=== PATIENT | male | born 1950 | race African-American/Black ===

== ENCOUNTER 2016-11-19 17:26 | Inpatient (IN) | payer OTHER, MEDICARE ==
[2016-11-19] VITALS (9 sets, daily range): BP systolic 114–124; BP diastolic 49–86; PULSE 77–107; RESP 20–22; TEMP 97.2–98.1; O2SAT 95–100
[~2016-11-19] VITALS: Ht 175.3 cm; Wt 104.2 kg
[~2016-11-19 17:26] MED LIST: ALBU0.086 NEB; ALBU8I INH; ALLE60TA PO; AZIT250T43 PO; IPRA0.02 NEB; LORA10TA PO; LOVA10TA PO; PRED20 PO
[2016-11-19] MEDS ORDERED: NITROGLYCERIN-DEXTROSE INJ 250 ML IV SCH (17:30)
[2016-11-19] MEDS ORDERED: HEPARIN SODIUM - IV 10,000 UNITS/10 ML VIAL IV STA (17:30)
[2016-11-19] MEDS ORDERED: NITROGLYCERIN 0.4 MG SL 25 TABS/BTL SL STA (17:30)
[2016-11-19] MEDS ORDERED: SODIUM CHLOR 0.9% 1000 ML INJ 1,000 ML IV ONE (17:30)
[2016-11-19] MEDS ORDERED: ASPIRIN 81 MG CHEW TAB PO STA (17:30)
--- NOTE | 2016-11-19 17:37 | PD ---
HPI Chief Complaint: STEMI alert Time Seen by Provider: 17:30 Travel History International Travel<30 days: No Contact w/Intl Traveler<30days: No Traveled to known affect area: No History of Present Illness HPI 65-year-old male with history of high cholesterol, asthma, previous history of smoking but quit 6 months ago, presents to the ER today brought in by EMS as a STEMI alert. Patient apparently has been having substernal chest discomfort, nausea, and went to an urgent care clinic. At an urgent care clinic they did an EKG and were concerned of an ST elevation CT. The consult patient's preventive maintenance engineer, Dr. Rey, who sent the patient in and is ready to see him in the Hydrotherapist. On arrival, patient's chest pain is a 3 out of 10. Modifying Factors: None Associated Signs & Symptoms: Chest pain, STEMI alert Risk Factors: High cholesterol, previous smoking PFSH Past Medical History Asthma: Yes Respiratory: Yes Social History Alcohol Use: No Tobacco Use: No Substance Use: No Allergies-Medications (Allergen,Severity, Reaction): Coded Allergies: No Known Allergies (Unverified , 05/18/16) Reported Meds & Prescriptions Reported Meds & Active Scripts Active Atrovent Ud 0.02% (0.5 Mg/2.5 Ml) (Ipratropium [place]) 0.5 Mg/2.5 Ml Nebu 0.5 Mg NEB Q4HR NEB Proventil Ud 0.083% (2.5 Mg/3 Ml) (Albuterol Sulfate) 2.5 Mg/3 Ml Inha 2.5 Mg NEB Q4HR NEB Azithromycin 250 Mg Tab 250 Mg PO DAILY 4 Days Deltasone 20 Mg Tab (Prednisone) 20 Mg Tab 60 Mg PO DAILY 4 Days Reported Ventolin Hfa (Albuterol Sulfate) 8 Gm Aero 1 Puff INH Q4 * SHAKE WELL BEFORE USE * Lovastatin 10 Mg Tab 10 Mg PO DAILY Vicenta Allergy (Fexofenadine Hcl) 60 Mg Tab 60 Mg PO DAILY Claritin 10 Mg Tab (Loratadine) 10 Mg Tab 10 Mg PO DAILY Review of Systems Except as stated in HPI: all other systems reviewed are Neg Physical Exam Narrative GENERAL: Well-nourished, well-developed elderly -Spanish male patient in mild distress. Awake and oriented 3. SKIN: Warm and dry. HEAD: Normocephalic. EYES: No scleral icterus. No injection or drainage. NECK: Supple, trachea midline. CARDIOVASCULAR: Regular rate and rhythm without murmurs, gallops, or rubs. Pulses are present and equal bilaterally. RESPIRATORY: Breath sounds equal bilaterally. No accessory muscle use. GASTROINTESTINAL: Abdomen soft, non-tender, nondistended. MUSCULOSKELETAL: No cyanosis, or edema. BACK: Nontender without obvious deformity. No CVA tenderness. Data Data Orders Troponin I (11/19/16 17:30) Ckmb (Isoenzyme) Profile (11/19/16 17:30) Complete Blood Count With Diff (11/19/16 17:30) I-Stat Profile (11/19/16 17:30) I-Stat Creatinine (11/19/16:30) Calcium (11/19/16:30) Magnesium (Mg) (11/19/16 17:30) Prothrombin Time / Inr (Pt) (11/19/16:30) Act Partial Throm Time (Ptt) (11/19/16:30) B-Type Natriuretic Peptide (11/19/16 17:30) Chest, Single Ap (11/19/16 17:30) Electrocardiogram (11/19/16 17:30) Oxygen Administration (11/19/16 17:30) Iv Access Insert/Monitor (11/19/16:30) Oximetry (11/19/16 17:30) Sodium Chlor 0.9% 1000 Ml Inj (Ns 1000 M (11/19/16 17:30) Sodium Chloride 0.9% Flush (Ns Flush) (11/19/16 17:30) Aspirin Chew (Aspirin Chew) (11/19/16 17:30) Nitroglycerin Sl (Nitrostat Sl) (11/19/16 17:30) Nitroglycerin-Dextrose Inj (Nitroglyceri (11/19/16 17:30) Heparin Inj (Heparin Inj) (11/19/16 17:30) Admit Order (Ed Use Only) (11/19/16 17:31) MDM Medical Decision Making Medical Screen Exam Complete: Yes Emergency Medical Condition: Yes Medical Record Reviewed: Yes Interpretation(s) EKG normal sinus rhythm with shows new onset left bundle branch block, ST elevations in the anterolateral leads and depressions in the inferior lead. Differential Diagnosis STEMI alert Narrative Course Patient was seen in the ER by Dr. rey who takes them up to catheterization, agrees to admit the patient for further treatment. Diagnosis Primary Impression: STEMI (ST elevation myocardial infarction) Admitting Information Admitting Physician Requests: Admit Kayla Oconnor MD Nov 19, 2016 17:37
[2016-11-19] MEDS ORDERED: HEPARIN SODIUM - IV 10,000 UNITS/10 ML VIAL ONE (17:47)
[2016-11-19] MEDS ORDERED: MIDAZOLAM HCL 2 MG/2 ML VIAL ONE ×2 (17:47→20:18)
[2016-11-19] MEDS ORDERED: BIVALIRUDIN 250 MG VIAL ONE (17:50)
[2016-11-19 17:58] LABS: I-STAT POTASSIUM 4.5 MMOL/L (3.5-4.9)
[2016-11-19 17:59] LABS: AUTOMATED NEUTROPHIL # 5.7 TH/MM3 (1.8-7.7); BASOPHIL # 0.1 TH/MM3 (0-0.2); BASOPHIL % 0.8 % (0.0-2.0); EOSINOPHIL % 0.3 % (0.0-4.0); HEMATOCRIT 42.6 % (39.0-51.0); HEMO FLAGS DIFF FINAL; LYMPH % 13.6 % (9.0-44.0); MEAN CELL VOLUME 91.3 FL (80.0-100.0); MEAN CORPUSCULAR HGB CONC 33.9 % (32.0-36.0); MONO % 5.7 % (0.0-8.0); NEUT % 79.6 % (16.0-70.0); PLATELET COUNT 278 TH/MM3 (150-450); RED BLOOD COUNT 4.67 MIL/MM3 (4.50-5.90); RED CELL DISTRIBUTION WIDTH 14.1 % (11.6-17.2); WHITE BLOOD COUNT 7.1 TH/MM3 (4.0-11.0)
[2016-11-19 18:03] LABS: APTT (PATIENT) 23.1 SEC (24.3-30.1); PROTHROMBIN TIME - PATIENT 10.8 SEC (9.8-11.6)
[2016-11-19 18:17] LABS: MAGNESIUM 2.1 MG/DL (1.5-2.5)
[2016-11-19] MEDS ORDERED: HEPARIN-D5W INJ 250 ML ONE (18:25)
[2016-11-19] MEDS ORDERED: PHENYLEPH/NS 1000 MCG/10 ML SYR ONE ×3 (18:29→20:44)
[2016-11-19] MEDS ORDERED: HEPARIN SODIUM - SQ 10,000 UNITS/ML VIAL ONE ×2 (18:51→18:56)
[2016-11-19] MEDS ORDERED: VANCOMYCIN HCL 1000 MG VIAL ONE ×2 (18:52→18:56)
[2016-11-19 18:54] LABS: CKMB 261.3 NG/ML (0.5-3.6)
[2016-11-19] MEDS ORDERED: ceFAZolin 2 GM PREMIX 50 ML ONE (18:56)
[2016-11-19] MEDS ORDERED: methylPREDNISolone SOD SUCC 125 MG/2 ML VIAL ONE (18:56)
[2016-11-19] MEDS ORDERED: IOHEXOL 350 MG/ML 100 ML BTL (for Cath Lab) OTHER ONE (19:00)
[2016-11-19] MEDS ORDERED: STERILE WATER FOR INJECTION 10 ML VIAL ONE (19:34)
[2016-11-19] MEDS ORDERED: CANGRELOR TETRASODIUM 50,000 MCG VIAL IV ONE (19:34)
[2016-11-19] MEDS ORDERED: PHENYLEPHRINE HCL 10 MG/ML VIAL ONE ×3 (19:37→21:09)
[2016-11-19] MEDS ORDERED: FUROSEMIDE 40 MG/4 ML VIAL ONE ×2 (19:49→20:19)
[2016-11-19] MEDS ORDERED: CANGRELOR INJ 50,000 MCG in SODIUM CHLOR 0.9% 250 ML INJ 250 ML IV ONE ×2 (20:15→23:45)
[2016-11-19] MEDS ORDERED: SODIUM CHLOR 0.9% 250 ML INJ 250 ML IV PRN (20:15)
[2016-11-19] MEDS ORDERED: MISC INFORMATION XX ONE (20:15)
[2016-11-19] MEDS ORDERED: ONDANSETRON HCL 4 MG/2 ML VIAL IV PRN (20:15)
[2016-11-19] MEDS ORDERED: MORPHINE SULFATE 4 MG/ML INJ IV PUSH PRN (20:15)
[2016-11-19] MEDS ORDERED: ATROPINE SULFATE 1 MG/ML VIAL IV PRN (20:15)
[2016-11-19] MEDS ORDERED: METOCLOPRAMIDE HCL 10 MG/2 ML VIAL IV PRN (20:15)
[2016-11-19] MEDS ORDERED: TERBUTALINE INJ 1 MG/ML AMP SQ PRN (20:15)
[2016-11-19] MEDS ORDERED: MIDAZOLAM HCL 5 MG/ML VIAL (1 ML) ONE (20:59)
[2016-11-19] MEDS: SODIUM CHLOR 0.9% 1000 ML INJ 1,000 ML IV SCH (21:00)
[2016-11-19] MEDS: ATORVASTATIN 40 MG TAB PO SCH (21:00)
[2016-11-19] MEDS ORDERED: PROPOFOL 1000 MG/100 ML INJ 100 ML ONE ×2 (21:01→23:25)
--- NOTE | 2016-11-19 21:33 | MB ---
cc: TAYO ANDERSON MD DATE OF CONSULTATION 11/19/2016 INDICATIONS STEMI. HISTORY OF PRESENT ILLNESS This 65-year-old gentleman has history of hyperlipidemia and asthma but no prior history of coronary disease. This morning he awoke, had some intermittent chest pain symptoms, began to become progressively worse over the course of the early afternoon. He came over to [facility]. There he had an EKG which showed new left bundle with ST-elevation anterolaterally. He was having nausea, vomiting, shortness of breath and diaphoresis. EMS was initiated. I was called, met the patient in the emergency department STEMI Alert protocol was initiated. PAST MEDICAL HISTORY Asthma. Hyperlipidemia. SOCIAL HISTORY Denies any alcohol, tobacco or drug use. ALLERGIES No known drug allergies. MEDICATIONS AT HOME 1. Atrovent. 2. Proventil. 3. Lovastatin. 4. Vicenta. REVIEW OF SYSTEMS A 12-point review of systems was performed, negative unless otherwise noted in the History Of Present Illness. PHYSICAL EXAMINATION VITAL SIGNS: Temperature 98, pulse is 100, blood pressure 124/82 mmHg. IN GENERAL: Alert, moderate distress. HEENT: Exam shows pupils reactive to light and accommodation. Extraocular movements are intact. NECK: No elevation of jugular venous distention, no thyromegaly, no lymphadenopathy, no carotid bruits. LUNGS: Clear to auscultation bilaterally. CARDIOVASCULAR EXAM: Regular rate and rhythm, without murmurs, rubs or gallops. ABDOMEN EXAM: Nontender, nondistended. Good bowel sounds. No hepatosplenomegaly. EXTREMITIES: No clubbing, cyanosis or edema. Good peripheral pulses. NEUROLOGIC: Cranial nerves intact. LABS Pending. ASSESSMENT 1. ST-elevation WI 2. Hyperlipidemia. PLAN Given the patient's ongoing symptoms in addition to EKG changes, ST-elevation WI protocol was initiated. The risks, benefits and alternatives were discussed with the patient and family. We will transfer to the Cardiac Catheterization Lab emergently. MD NATHANIEL Dejesus/PAULETTE /8:15 PM /9:26 PM
[2016-11-19 22:19] LABS: BLOOD GAS BASE EXCESS -3.4 mmol/L (-2-2); BLOOD GAS CARBOXYHEMOGLOBIN 0.8 % (0-4); BLOOD GAS HCO3 23 mmol/L (22-26); BLOOD GAS METHEMOGLOBIN 1.1 % (0-2); BLOOD GAS O2 HGB SATURATION 98 % (90-100); BLOOD GAS OXYGEN CONTENT 21.8 Vol % (12.0-20.0); BLOOD GAS PCO2 52 mmHg (38-42); BLOOD GAS PO2 412 mmHg (61-120); BLOOD GAS TOTAL HGB 15.1 G/DL (12.0-16.0); CRITICAL VALUE YES; DRAW SITE ALINE; FIO2 100 %; OXYGEN DEVICE VENTILATOR; STAT NO; TEMP CORR TO 98.6; VENT SETTINGS AC/18/550/PEEP5
--- NOTE | 2016-11-19 22:22 | PD.CONS ---
[facility] Service Critical Care Medicine Consult Requested By Primary Care Physician Jez Charles, PhD, MD History of Present Illness 65-year-old gentleman has history of hyperlipidemia and asthma, he awoke, had some intermittent chest pain symptoms, began to become progressively worse over the course of the early afternoon. He came over to [facility], where an EKG showed new left bundle with ST-elevation anterolaterally. He was taken emergently to cardiac catheterization lab where his LAD was stented. At the end of the procedure patients suffered near cardiac arrest requiring intubation intra-aortic balloon pump placement and IV vasopressors. Critical care medicine was consulted to manage ventilatory dependent respiratory failure and assist with medical management. Review of Systems ROS Unable to obtain patient is sedated and intubated Past Family Social History Allergies: Coded Allergies: No Known Allergies (Unverified , 05/18/16) Past Medical History Asthma. Hyperlipidemia. Past Surgical History None Reported Medications Reported Meds & Active Scripts Active Atrovent Ud 0.02% (0.5 Mg/2.5 Ml) (Ipratropium [place]) 0.5 Mg/2.5 Ml Nebu 0.5 Mg NEB Q4HR NEB Proventil Ud 0.083% (2.5 Mg/3 Ml) (Albuterol Sulfate) 2.5 Mg/3 Ml Inha 2.5 Mg NEB Q4HR NEB Azithromycin 250 Mg Tab 250 Mg PO DAILY 4 Days Deltasone 20 Mg Tab (Prednisone) 20 Mg Tab 60 Mg PO DAILY 4 Days Reported Ventolin Hfa (Albuterol Sulfate) 8 Gm Aero 1 Puff INH Q4 * SHAKE WELL BEFORE USE * Lovastatin 10 Mg Tab 10 Mg PO DAILY Vicenta Allergy (Fexofenadine Hcl) 60 Mg Tab 60 Mg PO DAILY Claritin 10 Mg Tab (Loratadine) 10 Mg Tab 10 Mg PO DAILY Active Ordered Medications Current Medications Medications (Trade) Dose Ordered Sig/Syed Route PRN Reason Start Time Stop Time Status Last Admin Dose Admin IV Flush 2 ml 2 ml UNSCH PRN IVF FLUSH AFTER USING IV ACCESS 11/19/16 17:30 Nitroglycerin/ Dextrose 250 ml @ 0 mls/hr TITRATE IV 11/19/16 17:30 Sodium Chloride (NS 1000 ml Inj) 1,000 ml @ 100 mls/hr Q10H IV 11/19/16 20:03 11/20/16 08:02 11/19/16 21:00 Morphine Sulfate (Morphine Inj) 2 mg Q30M PRN IV PUSH BREAKTHROUGH PAIN 11/19/16 20:15 Aspirin (Aspirin Chew) 81 mg DAILY PO 11/20/16 09:00 Atropine Sulfate 0.5 mg 0.5 mg UNSCH PRN IV VAGAL REPONSE 11/19/16 20:15 Sodium Chloride (NS 250 ml Inj) 250 ml @ 500 mls/hr ONCE PRN IV VAGAL REPONSE 11/19/16 20:15 11/20/16 20:14 Metoclopramide HCl (Reglan Inj) 10 mg Q4H PRN IV NAUSEA 11/19/16 20:15 Ondansetron HCl 4 mg 4 mg Q4H PRN IV NAUSEA 11/19/16 20:15 Heparin Sodium/ Dextrose (Heparin-D5W Inj) 250 ml @ 0 mls/hr TITRATE IV 11/19/16 20:15 Ferrous Sulfate (Ferrous Sulfate) 325 mg DAILY PO 11/20/16 09:00 Atorvastatin Calcium 40 mg 40 mg HS PO 11/19/16 21:00 Phenylephrine HCl/ Dextrose (Neosynephrine Inj/D5W 500 ml Inj) 500 ml @ 0 mls/hr TITRATE IV 11/19/16 21:15 Terbutaline Sulfate (Brethine Inj) 1 mg UNSCH PRN SQ For Extravasation 11/19/16 20:15 Furosemide (Lasix Inj) 40 mg BID@09,18 IV PUSH 11/20/16 09:00 Family History Noncontributory Social History Denies any alcohol, tobacco or drug use. Physical Exam Vital Signs Vital Signs Date Time Temp Pulse Resp B/P Pulse Ox O2 Delivery O2 Flow Rate FiO2 11/19/16 20:50 99 100 11/19/16 20:30 99 100 11/19/16 18:07 99 Nasal Cannula 2.00 11/19/16 18:07 99 2.00 11/19/16 17:50 101 22 97 Nasal Cannula 3 11/19/16 17:50 97 Nasal Cannula 3 11/19/16 17:50 97 Nasal Cannula 3 11/19/16 17:30 98.1 84 22 124/86 97 Nasal Cannula 3 11/19/16 17:28 98.1 84 22 124/82 98 Physical Exam GENERAL: Well-nourished, well-developed patient. SKIN: Warm and dry. HEAD: Normocephalic. EYES: No scleral icterus. No injection or drainage. NECK: Supple, trachea midline. No JVD or lymphadenopathy. CARDIOVASCULAR: Regular rate and rhythm without murmurs, gallops, or rubs. RESPIRATORY: Breath sounds equal bilaterally. No accessory muscle use. GASTROINTESTINAL: Abdomen soft, non-tender, nondistended. MUSCULOSKELETAL: No cyanosis, or edema. BACK: Nontender without obvious deformity. No CVA tenderness. Laboratory Laboratory Tests Test 11/19/16 11/19/16 17:36 22:00 White Blood Count 7.1 Red Blood Count 4.67 Hemoglobin 14.5 Bedside Hemoglobin 15.3 Hematocrit 42.6 Bedside Hematocrit 45.0 Mean Corpuscular Volume 91.3 Mean Corpuscular Hemoglobin 31.0 Mean Corpuscular Hemoglobin 33.9 Concent Red Cell Distribution Width 14.1 Platelet Count 278 Mean Platelet Volume 8.2 Neutrophils (%) (Auto) 79.6 Lymphocytes (%) (Auto) 13.6 Monocytes (%) (Auto) 5.7 Eosinophils (%) (Auto) 0.3 Basophils (%) (Auto) 0.8 Neutrophils # (Auto) 5.7 Lymphocytes # (Auto) 1.0 Monocytes # (Auto) 0.4 Eosinophils # (Auto) 0.0 Basophils # (Auto) 0.1 CBC Comment DIFF FINAL Differential Comment Prothrombin Time 10.8 Prothromb Time International 1.0 Ratio Activated Partial 23.1 Thromboplast Time Bedside Sodium 136 Bedside Potassium 4.5 Bedside Chloride 97 Bedside Blood Urea Nitrogen 14 Bedside Creatinine 1.0 Bedside Glucose 139 Calcium Level 8.2 Magnesium Level 2.1 Total Creatine Kinase 2393 Creatine Kinase MB 261.3 Creatine Kinase MB % 10.9 Troponin I 17.00 B-Type Natriuretic Peptide 60 Blood Gas Puncture Site YUMIKO Blood Gas Patient Temperature 98.6 Blood Gas HCO3 23 Blood Gas Base Excess -3.4 Blood Gas Oxygen Saturation 98 Arterial Blood pH 7.26 Arterial Blood Partial 52 Pressure CO2 Arterial Blood Partial 412 Pressure O2 Arterial Blood Oxygen Content 21.8 Arterial Blood 0.8 Carboxyhemoglobin Arterial Blood Methemoglobin 1.1 Blood Gas Hemoglobin 15.1 Oxygen Delivery Device VENTILATOR Blood Gas Ventilator Setting AC/18/550/PEEP5 Blood Gas Inspired Oxygen 100 Result Diagram: 11/19/16 0570 Assessment and Plan Problem List: (1) STEMI (ST elevation myocardial infarction) ICD Code: I21.3 Status: Acute (2) Acute respiratory failure ICD Code: J96.00 Status: Acute (3) Cardiogenic shock ICD Code: R57.0 Status: Acute (4) Dyslipidemia ICD Code: E78.5 Status: Acute (5) Obesity hypoventilation syndrome ICD Code: E66.2 Status: Acute Assessment and Plan Acute respiratory failure - Intubated in cardiac - Continue mechanical ventilation - SBT trials in the morning if hemodynamically improved - Continue DuoNeb Asthma - No exacerbation - DuoNeb Obesity hypoventilation syndrome - Not an issue while intubated Cardiogenic shock - Due to STEMI - Management per house rn - Aortic balloon pump STEMI - Status post LAD intervention - C ABG on Wednesday if hemodynamically stable Dyslipidemia - Statin DVT GI prophylaxis - Heparin drip Pepcid Critical Care: The total critical care time was 35 minutes. Time to perform other separately billable procedures was not included in the critical care time. Delvin Hernandez MD Nov 19, 2016 22:22
--- NOTE | 2016-11-19 22:25 | MA ---
cc: RADHA CULPTAYO DATE 11/19/2016 INDICATIONS STEMI. PROCEDURE PERFORMED 1. Fluoroscopy with interpretation. 2. Coronary angiography. 3. Temporary transvenous pacemaker placement. 4. Intraaortic balloon pump placement. 5. Percutaneous intervention with bare metal stent to the proximal and mid-left anterior descending coronary artery. 6. Relay thrombectomy of the left anterior descending coronary artery. 7. CPR. METHOD The risks, benefits and alternatives were discussed with the patient. The patient understood and signed consent for the procedure. The patient was brought to the catheterization lab and placed on the catheterization table. Right wrist and right groin were prepped and draped in a sterile fashion. The right wrist was anesthetized with 2% lidocaine. The right radial artery was cannulated and a 6-Kyrgyz, 7-cm sheath was placed without difficulty. CORONARY ANGIOGRAPHY The left coronary circulation was selectively engaged with a 6-Kyrgyz JL-3.5 catheter. Right coronary circulation was selectively engaged with a 6-Kyrgyz JR-5 catheter. CORONARY ANATOMY 1. Left main coronary is angiographically normal. 2. Left anterior descending coronary artery disease is 100% occluded proximally. A diagonal branch which is also occluded proximally. 3. Left circumflex gives rise to a ramus intermedius branch with a 99% proximal stenosis. The circumflex in the mid-segment has a 90% stenosis. There is a first obtuse marginal branch with a 90% stenosis. 4. Right coronary artery is a dominant vessel giving rise to a posterior descending coronary artery. The mid-right coronaries has a 90% stenosis. No collaterals to the left anterior descending coronary artery. INTRAAORTIC BALLOON PUMP PLACEMENT Prior to initiation of percutaneous intervention, the patient's systolic blood pressure dropped a 40 mmHg. The patient became apneic. Code Blue was initiated. CPR was also performed. The patient received Osman-Synephrine 15 mcg bolus. The right groin was prepped and draped. A 50 cc intraaortic balloon pump was then advanced to the thoracic aorta just beyond the takeoff of the left subclavian artery and initiated at 1:1 inflation. There was appropriate augmentation of blood pressure, although still cardiogenic shock. TEMPORARY TRANSVENOUS PACEMAKER The patient also had severe bradycardia and asystolic arrest with transient CPR. Temporary transvenous pacemaker was then placed. The right vein was accessed, a 6-Kyrgyz sheath was placed. A 5-Kyrgyz balloon-tipped temporary transvenous pacemaker was then advanced to the right ventricular apex. Appropriate capture was confirmed. Backup rate of 60 beats per minute was utilized. PERCUTANEOUS INTERVENTION Immediately following CPR, we attempted revascularization of the left anterior descending coronary artery. A 0.014-inch, 180-cm Terumo Run-Through wire was then navigated down to the distal left anterior descending coronary artery. A 3.0 x 15-mm balloon was then deployed proximally. There was still no flow down the left anterior descending, likely due to severe stenosis and heavy thrombotic burden. A 4-Kyrgyz AngioJet Spiroflex catheter was then prepped. Two sequential passes of rheolytic thrombectomy was performed through the entire length of the left anterior descending coronary artery. A 2.5 x 30-mm RX balloon was then advanced to the mid-left anterior descending coronary, deployed on three sequential inflations from mid to proximal segment. Repeat angiography again still showed no significant flow down the left anterior descending coronary artery. At this point we wanted to ensure that we were in the lumen of the vessel itself. A second wire was then carefully navigated down the distal left anterior descending coronary artery. We were able to selectively engage several septal perforators off the left anterior descending coronary suggesting we were in the true lumen. The wire was then advanced around the inferoapex. A 0.014-inch, 150-cm Trailblazer wire was then advanced over a 180-cm Terumo Run-Through wire with a DOC wire attached. The Terumo wire was then removed. Selective angiography through the distal port did confirm that we were in the true lumen and you could see the contrast dye back-filling to the mid-segment left anterior descending coronary artery. At this point, due to the poor flow, STAT surgical consultation was obtained. Dr. Radha Culp was then in the control room. We reviewed the films together. It did appear that there is heavy obstruction in the proximal segment. A 0.035-inch, 135-cm Trailblazer wire was then navigated over the Terumo Run-Through wire. The catheter was then advanced over the Terumo Run-Through wire which was down in the distal left anterior descending coronary artery. Through a Bkam system, selective angiography was performed as we pulled back through the mid to proximal left anterior descending coronary artery. This way we would not lose wire position distally but we would be able to selectively see exactly where the stenosis was for appropriate stent placement. At this point, after a lengthy discussion with Dr. Culp, be felt that percutaneous intervention would be his best chance for survival given he is hypotensive and the time it would take to mobilize the surgical suite. A 3.0 x 3-mm Integrity bare metal stent was then advanced to the proximal left anterior descending coronary and deployed. A 2.75 x 14-mm Integrity bare metal stent was advanced to the mid-segment of the left anterior descending coronary artery and deployed and a 3.0 x 14-mm Integrity stent was advanced to the very proximal segment and deployed. At this point it now showed ALYSHA-2 flow down the distal left anterior descending coronary, likely due to a thrombus embolization and no some no reflow phenomenon. The patient was still hypotensive so I did not want to give him Cardizem or nitrates. He had previously been bradycardic and I did not want to give him any intraarterial adenosine. We initiated cangrelor IV. He had been on heparin up to this point because we were not sure if he is going to go for surgical intervention. The ramus intermedius branch did have plaque shifting into it and no longer had any flow but with the smaller caliber size and with an ostial stenosis did not want to risk trying to wire that. Hopefully with the heparin and cangrelor, it will recanalize. At this point we elected not to pursue any further aggressive intervention. Hopefully distally we will be able to establish improved perfusion with the antiplatelet and anticoagulant. We will get an echocardiogram. Did not want to do a left ventriculogram for contrast minimization. CONCLUSIONS 1. Salvage left anterior descending coronary artery percutaneous intervention for acute ST-elevation myocardial infarction. 2. Successful relay thrombectomy left anterior descending coronary artery. 3. Percutaneous intervention with bare well stents to left anterior descending coronary artery. 4. Successful intraaortic balloon pump placement. 5. Successful endotracheal intubation. 6. Successful temporary transvenous pacemaker placement. PLAN 1. Obviously, the patient is in critical condition. We will monitor closely. He is on a Osman-Synephrine drip to maintain blood pressure with the intraaortic balloon pump and temporary transvenous pacemaker. He is currently intubated. 1. We will give him some Lasix IV. 2. We will obtain a 2-D echocardiogram. 3. We will discuss the case further with Dr. Culp. Hopefully we can stabilize him over the course of the next few days and we can then decide if he would be a candidate for surgical revascularization. 4. We will not administer any Plavix at this point until we determine whether he will have bypass surgery and/or the timing of such. MD NATHANIEL Dejesus/PAULETTE /8:27 PM /9:54 PM
[2016-11-19 23:42] LABS: BLOOD GAS BASE EXCESS -2.3 mmol/L (-2-2); BLOOD GAS CARBOXYHEMOGLOBIN 1.2 % (0-4); BLOOD GAS HCO3 22 mmol/L (22-26); BLOOD GAS O2 HGB SATURATION 96 % (90-100); BLOOD GAS OXYGEN CONTENT 19.9 Vol % (12.0-20.0); BLOOD GAS PCO2 37 mmHg (38-42); BLOOD GAS PO2 113 mmHg (61-120); BLOOD GAS TOTAL HGB 14.6 G/DL (12.0-16.0); TEMP CORR TO 98.6
[2016-11-19 23:43] LABS: CRITICAL VALUE NO; DRAW SITE ALINE; FIO2 40 %; OXYGEN DEVICE VENTILATOR; STAT NO; VENT SETTINGS AC/22/550/PEEP5
[2016-11-20] VITALS (14 sets, daily range): BP systolic 72–124; BP diastolic 44–68; PULSE 74–100; RESP 16–22; TEMP 97.5–100.4; O2SAT 93–99
[2016-11-20] MEDS: CANGRELOR INJ 50,000 MCG in SODIUM CHLOR 0.9% 250 ML INJ 250 ML IV PRN ×9 (00:16→18:47)
[2016-11-20] MEDS: PROPOFOL 1000 MG/100 ML IV SCH ×7 (02:29→18:48)
[2016-11-20] MEDS: PHENYLEPHRINE INJ 40 MG in DEXTROSE 5% IN WATE 500 ML INJ 496 ML IV SCH ×4 (03:52→11:12)
[2016-11-20] MEDS: RESP: ALBUTEROL 2.5 MG/IPRATROPIUM 0.5 MG NEB (SCH) NEB ×6 (04:37→23:23)
[2016-11-20 04:51] LABS: AUTOMATED NEUTROPHIL # 8.4 TH/MM3 (1.8-7.7); BASOPHIL % 0.2 % (0.0-2.0); EOSINOPHIL % 0.1 % (0.0-4.0); HEMATOCRIT 39.7 % (39.0-51.0); HEMO FLAGS DIFF FINAL; LYMPH % 7.7 % (9.0-44.0); LYMPHOCYTE # 0.8 TH/MM3 (1.0-4.8); MEAN CELL VOLUME 89.4 FL (80.0-100.0); MEAN CORPUSCULAR HEMOGLOBIN 30.8 PG (27.0-34.0); MEAN CORPUSCULAR HGB CONC 34.5 % (32.0-36.0); MONO % 7.9 % (0.0-8.0); NEUT % 84.1 % (16.0-70.0); PLATELET COUNT 264 TH/MM3 (150-450); RED BLOOD COUNT 4.45 MIL/MM3 (4.50-5.90); RED CELL DISTRIBUTION WIDTH 13.6 % (11.6-17.2)
[2016-11-20 05:32] LABS: BICARBONATE 23.2 MEQ/L (21.0-32.0); HDL CHOLESTEROL 57.4 MG/DL (40.0-60.0); POTASSIUM 4.1 MEQ/L (3.5-5.1)
[2016-11-20] MEDS: SODIUM CHLOR 0.9% 1000 ML INJ 1,000 ML IV SCH (06:03)
--- NOTE | 2016-11-20 06:09 | RADRPT ---
EXAM DATE/TIME: 11/20/2016 04:51 [place] COMPARISON: No previous studies available for comparison. INDICATIONS : Shortness of breath. MEDICAL HISTORY : Asthma. SURGICAL HISTORY : None. ENCOUNTER: Initial ACUITY: 1 day PAIN SCORE: Non-responsive. LOCATION: Bilateral chest FINDINGS: Portable AP view of the chest demonstrates a normal-sized cardiac silhouette. Nasogastric tube is loo ped in the stomach and endotracheal tube tip measures approximately 4.4 cm from the ba. Lungs are underinflated and there is atelectasis at the left lung base. No pleural effusion or pneumothorax is visualized. Bones and soft tissues demonstrate no acute finding. CONCLUSION: Lungs are underinflated with atelectasis at the left lung base. Otherwise, no acute finding is identi fied. Remi Altman MD on November 20, 2016 at 6:06 Board Certified Radiologist. This report was verified electronically.
[2016-11-20 06:25] LABS: BLOOD GAS CARBOXYHEMOGLOBIN 1.3 % (0-4); BLOOD GAS HCO3 22 mmol/L (22-26); BLOOD GAS METHEMOGLOBIN 1.1 % (0-2); BLOOD GAS O2 HGB SATURATION 97 % (90-100); BLOOD GAS OXYGEN CONTENT 18.5 Vol % (12.0-20.0); BLOOD GAS PCO2 31 mmHg (38-42); BLOOD GAS PO2 143 mmHg (61-120); BLOOD GAS TOTAL HGB 13.4 G/DL (12.0-16.0); CRITICAL VALUE NO; DRAW SITE ART LINE; FIO2 40 %; OXYGEN DEVICE VENTILATOR; STAT NO; TEMP CORR TO 98.6; VENT SETTINGS AC22/550/5PEEP
[2016-11-20 07:19] LABS: CALCIUM-PROTEIN CORRECTED 7.4 MG/DL (8.5-10.1)
--- NOTE | 2016-11-20 08:26 | PD.CARD.PN ---
Subjective Subjective Remarks intubated sedated on nette gtt Objective Medications Active Medications Aspirin 81 mg 81 mg DAILY PO; Start 11/20/16 at 09:00 Atorvastatin Calcium 40 mg 40 mg HS PO; Start 11/19/16 at 21:00 Atropine Sulfate 0.5 mg 0.5 mg UNSCH PRN IV; Start 11/19/16 at 20:15 Bivalirudin 250 mg 250 mg STK-MED ONCE .ROUTE Last administered on 11/19/16 17: 50; Admin Dose 250 MG; Start 11/19/16 at 17:50; Stop 11/19/16 at 17:51; Status DC Cangrelor (Kengreal Inj) 50,000 mcg STK-MED ONCE IV Last administered on 19:34; Admin Dose 50,000 MCG; Start 11/19/16 at 19:34; Stop 11/19/16 at 19:35 ; Status DC Cangrelor 66828 mcg/Sodium Chloride 250 ml @ 0 mls/hr ONCE ONCE IV; Start at 23:45; Stop 11/19/16 at 23:46; Status DC Cangrelor/Sodium Chloride (Kengreal Inj/NS 250 ml Inj) 250 ml @ 0 mls/hr ONCE ONCE IV; Start 11/19/16 at 20:15; Stop 11/19/16 at 20:17; Status DC Cangrelor/Sodium Chloride (Kengreal Inj/NS 250 ml Inj) 250 ml @ 0 mls/hr UNSCH PRN IV Last administered on 11/20/16 06:08; Admin Dose 0 MLS/HR; Start 11/20/16 at 04:11 Cefazolin Sodium/ Dextrose (Ancef 2 Gm Premix) 50 ml @ As Directed STK-MED ONCE .ROUTE; Start 11/19/16 at 18:56; Stop 11/19/16 at 18:57; Status DC Fentanyl Citrate (fentaNYL INJ) 100 mcg STK-MED ONCE .ROUTE Last administered on 11/19/16 17:47; Admin Dose 100 MCG; Start 11/19/16 at 17:47; Stop 11/19/16 at 17:48; Status DC Ferrous Sulfate (Ferrous Sulfate) 325 mg DAILY PO; Start 11/20/16 at 09:00 Furosemide (Lasix Inj) 40 mg BID@09,18 IV PUSH; Start 11/20/16 at 09:00 Furosemide (Lasix Inj) 40 mg STK-MED ONCE .ROUTE Last administered on 11/19/16 19:49; Admin Dose 40 MG; Start 11/19/16 at 19:49; Stop 11/19/16 at 19:50; Status DC Furosemide (Lasix Inj) 40 mg STK-MED ONCE .ROUTE Last administered on 11/19/16 20:19; Admin Dose 40 MG; Start 11/19/16 at 20:19; Stop 11/19/16 at 20:20; Status DC Heparin Sodium (Porcine) (Heparin Inj) 10,000 units STK-MED ONCE .ROUTE; Start 11/19/16 at 17:47; Stop 11/19/16 at 17:48; Status DC Heparin Sodium (Porcine) (Heparin Inj) 40,000 units STK-MED ONCE .ROUTE; Start 11/19/16 at 18:51; Stop 11/19/16 at 18:52; Status DC Heparin Sodium (Porcine) (Heparin Inj) 40,000 units STK-MED ONCE .ROUTE; Start 11/19/16 at 18:56; Stop 11/19/16 at 18:57; Status DC Heparin Sodium/ Dextrose (Heparin-D5W Inj) 250 ml @ As Directed STK-MED ONCE .ROUTE Last administered on 11/19/16 18:25; Admin Dose 10 MLS/HR; Start 11/19/16 at 18:25; Stop 11/19/16 at 18:26; Status DC Heparin Sodium/ Dextrose (Heparin-D5W Inj) 250 ml @ 0 mls/hr TITRATE IV; Start 11/19/16 at 20:15 IV Flush 2 ml 2 ml UNSCH PRN IVF; Start 11/19/16 at 17:30 Methylprednisolone Sodium Succinate 125 mg 125 mg STK-MED ONCE .ROUTE; Start 11/19/16 at 18:56; Stop 11/19/16 at 18:57; Status DC Metoclopramide HCl (Reglan Inj) 10 mg Q4H PRN IV; Start 11/19/16 at 20:15 Midazolam HCl (Versed Inj) 2 mg STK-MED ONCE .ROUTE Last administered on 17:47; Admin Dose 2 MG; Start 11/19/16 at 17:47; Stop 11/19/16 at 17:48; Status DC Midazolam HCl (Versed Inj) 2 mg STK-MED ONCE .ROUTE Last administered on 20:18; Admin Dose 2 MG; Start 11/19/16 at 20:18; Stop 11/19/16 at 20:19; Status DC Midazolam HCl 5 mg 5 mg STK-MED ONCE .ROUTE Last administered on 11/19/16 20:59 ; Admin Dose 5 MG; Start 11/19/16 at 20:59; Stop 11/19/16 at 21:00; Status DC Miscellaneous Information 1 ONCE ONCE XX; Start 11/19/16 at 20:15; Stop 11/19/16 at 20:19; Status DC Morphine Sulfate (Morphine Inj) 2 mg Q30M PRN IV PUSH; Start 11/19/16 at 20:15 Nitroglycerin/ Dextrose (Nitroglycerin-Dextrose Inj) 250 ml @ 0 mls/hr TITRATE IV; Start 11/19/16 at 17:30 Ondansetron HCl 4 mg 4 mg Q4H PRN IV; Start 11/19/16 at 20:15 Phenylephrine HCl (Neosynephrine Inj) 10 mg STK-MED ONCE .ROUTE Last administered on 11/19/16 19:37; Admin Dose 10 MG; Start 11/19/16 at 19:37; Stop 11/19/16 at 19:38; Status DC Phenylephrine HCl (Neosynephrine Inj) 30 mg STK-MED ONCE .ROUTE Last administered on 11/19/16 19:38; Admin Dose 30 MG; Start 11/19/16 at 19:38; Stop 11/19/16 at 19:39; Status DC Phenylephrine HCl (Neosynephrine/ NS 1000 Mcg/10ml Syr) 1,000 mcg STK-MED ONCE .ROUTE Last administered on 11/19/16 18:29; Admin Dose 1,000 MCG; Start 11/19/16 at 18:29; Stop 11/19/16 at 18:30; Status DC Phenylephrine HCl (Neosynephrine/ NS 1000 Mcg/10ml Syr) 1,000 mcg STK-MED ONCE .ROUTE Last administered on 11/19/16 20:44; Admin Dose 1,000 MCG; Start 11/19/16 at 20:44; Stop 11/19/16 at 20:45; Status DC Phenylephrine HCl 10 mg 10 mg STK-MED ONCE .ROUTE; Start 11/19/16 at 21:09; Stop 11/19/16 at 21:10; Status DC Phenylephrine HCl 1000 mcg 1,000 mcg STK-MED ONCE .ROUTE Last administered on 19:54; Admin Dose 1,000 MCG; Start 11/19/16 at 19:54; Stop 11/19/16 at 19: 55; Status DC Phenylephrine HCl/ Dextrose (Neosynephrine Inj/D5W 500 ml Inj) 500 ml @ 0 mls/ hr TITRATE IV Last administered on 11/20/16 03:52; Admin Dose 0 MLS/HR; Start at 21:15 Propofol 100 ml @ As Directed STK-MED ONCE .ROUTE; Start 11/19/16 at 23:25; Stop 11/19/16 at 23:26; Status DC Propofol 100 ml @ 0 mls/hr TITRATE IV Last administered on 11/20/16 06:08; Admin Dose 0 MLS/HR; Start 11/20/16 at 01:00 Propofol (Diprivan 1000 Mg/100ml Inj) 100 ml @ As Directed STK-MED ONCE .ROUTE ; Start 11/19/16 at 21:01; Stop 11/19/16 at 21:02; Status DC Sodium Chloride (NS 1000 ml Inj) 1,000 ml @ 0 mls/hr Q0M ONCE IV; Start at 17:30; Stop 11/19/16 at 17:33; Status DC Sodium Chloride (NS 1000 ml Inj) 1,000 ml @ 100 mls/hr Q10H IV Last administered on 11/20/16 06:03; Admin Dose 100 MLS/HR; Start 11/19/16 at 20:03; Stop 11/20/16 at 08:02; Status DC Sodium Chloride (NS 250 ml Inj) 250 ml @ 500 mls/hr ONCE PRN IV; Start at 20:15; Stop 11/20/16 at 20:14 Sterile Water (Sterile Water For Inj) 10 ml STK-MED ONCE .ROUTE; Start 11/19/16 at 19:34; Stop 11/19/16 at 19:35; Status DC Terbutaline Sulfate (Brethine Inj) 1 mg UNSCH PRN SQ; Start 11/19/16 at 20:15 Vancomycin HCl (Vancomycin Inj) 1,000 mg STK-MED ONCE .ROUTE; Start 11/19/16 at 18:52; Stop 11/19/16 at 18:53; Status DC Vancomycin HCl (Vancomycin Inj) 3,000 mg STK-MED ONCE .ROUTE; Start 11/19/16 at 18:56; Stop 11/19/16 at 18:57; Status DC Vital Signs / I&O Vital Signs Date Time Temp Pulse Resp B/P Pulse Ox O2 Delivery O2 Flow Rate FiO2 11/20/16 06:00 78/58 11/20/16 05:00 85/63 11/20/16 04:40 97 40 11/20/16 04:00 80 11/20/16 04:00 97 Mechanical Ventilator 40 11/20/16 04:00 76/58 11/20/16 04:00 40 11/20/16 03:00 74 11/20/16 03:00 81/58 11/20/16 03:00 99.2 75 22 123/44 95 11/20/16 02:00 73/53 11/20/16 01:00 73/50 11/20/16 00:00 67/51 11/19/16 23:35 99 40 11/19/16 23:00 68/64 11/19/16 23:00 98.0 77 22 114/49 95 11/19/16 23:00 100 11/19/16 22:00 88/67 11/19/16 22:00 96 Mechanical Ventilator 40 11/19/16 22:00 40 11/19/16 21:00 100 Mechanical Ventilator 100 11/19/16 21:00 92/61 11/19/16 21:00 100 11/19/16 21:00 75 11/19/16 21:00 97.2 107 20 115/50 100 Automatic Cuff 11/19/16 20:50 99 100 11/19/16 20:30 99 100 11/19/16 18:07 99 Nasal Cannula 2.00 11/19/16 18:07 99 2.00 11/19/16 17:50 101 22 97 Nasal Cannula 3 11/19/16 17:50 97 Nasal Cannula 3 11/19/16 17:50 97 Nasal Cannula 3 11/19/16 17:30 98.1 84 22 124/86 97 Nasal Cannula 3 11/19/16 17:28 98.1 84 22 124/82 98 I/O 11/19/16 11/19/16 11/19/16 11/20/16 11/20/16 11/20/16 07:00 15:00 23:00 07:00 15:00 23:00 Intake Total 3210 ml Output Total 2550 ml Balance 660 ml Intake IV Total 3210 ml Output Urine Total 2300 ml Gastric Drainage Total 250 ml # Bowel Movements 0 Physical Exam CARDIOVASCULAR: Regular rate and rhythm RESPIRATORY: Breath sounds equal bilaterally. GASTROINTESTINAL: Abdomen nnondistended. MUSCULOSKELETAL: No cyanosis, or edema. decreased pulses BLE. Laboratory Laboratory Tests Test 11/19/16 11/19/16 11/19/16 11/20/16 17:36 22:00 23:05 03:55 White Blood Count 7.1 TH/MM3 10.0 TH/MM3 Red Blood Count 4.67 MIL/MM3 4.45 MIL/MM3 Hemoglobin 14.5 GM/DL 13.7 GM/DL Bedside Hemoglobin 15.3 G/DL Hematocrit 42.6 % 39.7 % Bedside Hematocrit 45.0 % Mean Corpuscular Volume 91.3 FL 89.4 FL Mean Corpuscular Hemoglobin 31.0 PG 30.8 PG Mean Corpuscular Hemoglobin 33.9 % 34.5 % Concent Red Cell Distribution Width 14.1 % 13.6 % Platelet Count 278 TH/MM3 264 TH/MM3 Mean Platelet Volume 8.2 FL 8.5 FL Neutrophils (%) (Auto) 79.6 % 84.1 % Lymphocytes (%) (Auto) 13.6 % 7.7 % Monocytes (%) (Auto) 5.7 % 7.9 % Eosinophils (%) (Auto) 0.3 % 0.1 % Basophils (%) (Auto) 0.8 % 0.2 % Neutrophils # (Auto) 5.7 TH/MM3 8.4 TH/MM3 Lymphocytes # (Auto) 1.0 TH/MM3 0.8 TH/MM3 Monocytes # (Auto) 0.4 TH/MM3 0.8 TH/MM3 Eosinophils # (Auto) 0.0 TH/MM3 0.0 TH/MM3 Basophils # (Auto) 0.1 TH/MM3 0.0 TH/MM3 CBC Comment DIFF FINAL DIFF FINAL Differential Comment Prothrombin Time 10.8 SEC Prothromb Time International 1.0 RATIO Ratio Activated Partial 23.1 SEC 32.0 SEC Thromboplast Time Bedside Sodium 136 MMOL/L Bedside Potassium 4.5 MMOL/L Bedside Chloride 97 MMOL/L Bedside Blood Urea Nitrogen 14 MG/DL Bedside Creatinine 1.0 MG/DL Bedside Glucose 139 MG/DL Calcium Level 8.2 MG/DL 7.1 MG/DL Magnesium Level 2.1 MG/DL Total Creatine Kinase 2393 U/L 8636 U/L Creatine Kinase MB 261.3 NG/ML 1161.0 NG/ML Creatine Kinase MB % 10.9 % 13.4 % Troponin I 17.00 NG/ML B-Type Natriuretic Peptide 60 PG/ML Blood [facility] Gas Patient Temperature 98.6 98.6 Blood Gas HCO3 23 mmol/L 22 mmol/L Blood Gas Base Excess -3.4 mmol/L -2.3 mmol/L Blood Gas Oxygen Saturation 98 % 96 % Arterial Blood pH 7.26 7.39 Arterial Blood Partial 52 mmHg 37 mmHg Pressure CO2 Arterial Blood Partial 412 mmHg 113 mmHg Pressure O2 Arterial Blood Oxygen Content 21.8 Vol % 19.9 Vol % Arterial Blood 0.8 % 1.2 % Carboxyhemoglobin Arterial Blood Methemoglobin 1.1 % 1.0 % Blood Gas Hemoglobin 15.1 G/DL 14.6 G/DL Oxygen Delivery Device VENTILATOR VENTILATOR Blood Gas Ventilator Setting AC/18/550/PEEP5 AC//550/PEEP5 Blood Gas Inspired Oxygen 100 % 40 % Sodium Level 137 MEQ/L Potassium Level 4.1 MEQ/L Chloride Level 103 MEQ/L Carbon Dioxide Level 23.2 MEQ/L Anion Gap 11 MEQ/L Blood Urea Nitrogen 14 MG/DL Creatinine 0.97 MG/DL Estimat Glomerular Filtration 94 ML/MIN Rate Random Glucose 134 MG/DL Protein Corrected Calcium 7.4 MG/DL Total Protein 6.6 GM/DL Triglycerides Level 130 MG/DL Cholesterol Level 161 MG/DL LDL Cholesterol 78 MG/DL HDL Cholesterol 57.4 MG/DL Cholesterol/HDL Ratio 2.80 RATIO Test 11/20/16 06:15 Blood Gas Puncture Site ART LINE Blood Gas Patient Temperature 98.6 Blood Gas HCO3 22 mmol/L Blood Gas Base Excess -1.0 mmol/L Blood Gas Oxygen Saturation 97 % Arterial Blood pH 7.47 Arterial Blood Partial 31 mmHg Pressure CO2 Arterial Blood Partial 143 mmHg Pressure O2 Arterial Blood Oxygen Content 18.5 Vol % Arterial Blood 1.3 % Carboxyhemoglobin Arterial Blood Methemoglobin 1.1 % Blood Gas Hemoglobin 13.4 G/DL Oxygen Delivery Device VENTILATOR Blood Gas Ventilator Setting AC22/550/5PEEP Blood Gas Inspired Oxygen 40 % Imaging Last Impressions Chest X-Ray 11/20/16 0600 Signed Impressions: Service Date/Time: Sunday, November 20, 2016 04:51 - CONCLUSION: Lungs are underinflated with atelectasis at the left lung base. Otherwise, no acute finding is identified. Remi Altman MD Assessment and Plan Assessment and Plan STEMI - s/p complex LAD PCI BMS x 3. residual multivessel CAD. cardiogenic shock. respiratory failure intubated. cont wean neosynephrine gtt as BP tolerates. No LUIS or BB due to BP. aspirin statin. no Plavix secondary to possible staged CABG, if recovers hemodynamically. continue Cangrelor gtt. IABP - cont hep gtt temp pacer in place. 2d echo this am. CK 8000+ - large anterior NE. monitor Cr. good U.OP. cont lasix today. may consider decreasing lasix tomorrow. FiO2 40% . consider attempted extubation only when more hemodynamically stable (off pressor support). appreciate environmental resource specialist and cardiac surgery assistance. Adebayo Alvarez MD Nov 20, 2016 08:26
[2016-11-20 08:44] LABS: BICARBONATE 22.7 MEQ/L (21.0-32.0); CALCIUM-PROTEIN CORRECTED 7.7 MG/DL (8.5-10.1); MAGNESIUM 2.1 MG/DL (1.5-2.5); POTASSIUM 3.7 MEQ/L (3.5-5.1); TOTAL BILIRUBIN ADULT 0.4 MG/DL (0.2-1.0)
[2016-11-20] MEDS: FUROSEMIDE 40 MG/4 ML VIAL IV PUSH SCH ×2 (09:01→18:20)
[2016-11-20] MEDS: ASPIRIN 81 MG CHEW TAB PO SCH (09:02)
[2016-11-20] MEDS: FERROUS SULFATE 325 MG (65 MG ELEMENTAL IRON) TAB PO SCH (09:03)
[2016-11-20] MEDS: HEPARIN-D5W INJ 250 ML IV SCH (10:04)
--- NOTE | 2016-11-20 10:44 | EC ---
Study Study Date:11/20/2016 STUDY CONCLUSIONS SUMMARY - Left ventricle: The cavity size was normal. Wall thickness was normal. Systolic function was severely reduced by visual assessment. The estimated ejection fraction was in the range of 20% to 25%. Severe hypokinesis of the mid-distal anteroseptal, anterior, anterolateral, and apical myocardium. - Aortic valve: Valve area: 2.97cm^2 (Vmax). - Tricuspid valve: Mild regurgitation. - Pericardium, extracardiac: A small pericardial effusion was identified. There was no evidence of hemodynamic compromise. If LV function is below 40, please consider prescribing an ACEI or ARB or document rationale for non-use. PROCEDURE DATA STUDY STATUS: Elective. Procedure: Transthoracic echocardiography. Image quality was good. Scanning was performed from the parasternal, apical, and subcostal acoustic windows. Study completion: The patient tolerated the procedure well. Transthoracic echocardiography. M-mode, complete 2D, complete spectral Doppler, and color Doppler. Height: Height: 69in. Weight: Weight: 219.5lb. Body mass index: BMI: 32.5kg/m^2. Body surface area: BSA: 2.15m^2. Patient status: Inpatient. CARDIAC ANATOMY LEFT VENTRICLE: The cavity size was normal. Wall thickness was normal. Systolic function was severely reduced by visual assessment. The estimated ejection fraction was in the range of 20% to 25%. Regional wall motion abnormalities: Severe hypokinesis of the mid-distal anteroseptal, anterior, anterolateral, and apical myocardium. AORTIC VALVE: Trileaflet; normal thickness leaflets. Doppler: Transvalvular velocity was within the normal range. There was no stenosis. No regurgitation. Valve area: 2.97cm^2 (Vmax). Indexed valve area: 1.38cm^2/m^2 (Vmax). AORTA: Aortic root: The aortic root was normal in size. MITRAL VALVE: Structurally normal valve. Doppler: Transvalvular velocity was within the normal range. There was no evidence for stenosis. Trace regurgitation. LEFT ATRIUM: The atrium was normal in size. RIGHT VENTRICLE: The cavity size was normal. Wall thickness was normal. PULMONIC VALVE: Doppler: Transvalvular velocity was within the normal range. There was no evidence for stenosis. No regurgitation. TRICUSPID VALVE: Structurally normal valve. Doppler: Transvalvular velocity was within the normal range. Mild regurgitation. PULMONARY ARTERY: The main pulmonary artery was normal-sized. Systolic pressure was within the normal range. RIGHT ATRIUM: The atrium was normal in size. PERICARDIUM: A small pericardial effusion was identified. There was no evidence of hemodynamic compromise. SYSTEMIC VEINS: Inferior vena cava: The vessel was normal in size. Patient weight: 219.5lb _Ejection fraction:_ 65-75% _Fractional shortening:_ 32% up to 5Kg 5-11.5Kg 11.6-22.9Kg 23-45Kg 45-57Kg Aortic Root 7-13 <17 13-22 17-27 17-27 LA diam 6-13 <23 24-38 33-47 37-40 RVID 10-17 7-15 7-15 7-18 8-17 LVIDd 12-22 <32 24-38 33-47 37-40 LVPW 2-4 3-6 5-7 6-8 7-8 IVS 2-4 3-6 5-7 6-8 7-8 BASIC MEASUREMENTS ADULT NORMAL Left ventricle LV internal dimension, ED, chordal 49.1 mm 43-52 level, PLAX LV internal dimension, ES, chordal *42.8 mm 23-38 level, PLAX Fractional shortening, chordal level, *13 % >29 PLAX LV posterior wall thickness, ED 9.94 mm IVS/LVPW ratio, ED 0.93 <1.3 Volume, ED, MOD, 1-plane 108 ml Volume, ES, MOD, 1-plane 73 ml Ejection fraction, MOD, 1-plane 32 % Stroke volume, MOD, 1-plane 35 ml Volume index, ED, MOD, 1-plane 50 ml/m^2 Volume index, ES, MOD, 1-plane 34 ml/m^2 Stroke index, MOD, 1-plane 16.3 ml/m^2 Volume, ED, MOD, 2-plane 116 ml Volume, ES, MOD, 2-plane 74 ml Ejection fraction, MOD, 2-plane 36 % Stroke volume, MOD, 2-plane 42 ml Volume index, ED, MOD, 2-plane 54 ml/m^2 Volume index, ES, MOD, 2-plane 34 ml/m^2 Stroke index, MOD, 2-plane 19.5 ml/m^2 Ventricular septum Septal thickness, ED 9.26 mm Aortic valve Leaflet separation 16 mm 15-26 BASIC MEASUREMENTS ADULT NORMAL Aortic valve Leaflet separation 16 mm 15-26 Aorta Root diameter, ED 27 mm 20-37 Left atrium Anterior-posterior dimension, ES 27 mm 19-40 Anterior-posterior dimension index, ES 1.26 cm/m^2 <2.2 LA/aortic root ratio 1 DOPPLER MEASUREMENTS ADULT NORMAL Main pulmonary artery Pressure, S 18 mm Hg =30 Aortic valve Peak velocity, S 114 cm/s Valve area, Vmax 2.97 cm^2 Valve area index, Vmax 1.38 cm^2/m^2 Mitral valve Peak E-wave velocity 67.4 cm/s Peak A-wave velocity 46.4 cm/s Deceleration time 175 ms 150-230 Peak E/A ratio 1.5 Tricuspid valve Regurgitant peak velocity 170 cm/s Peak RV-RA gradient, S 12 mm Hg Maximal regurgitant velocity 170 cm/s Systemic veins Estimated CVP 10 mm Hg Right ventricle RV pressure, S 22 mm Hg <30 Pulmonic valve Peak velocity, S 102 cm/s LEGEND: Mean values are shown as u=mean value. Asterisk (*) alatorre values outside specified normal range. Prepared and signed by Adebayo Alvarez [id number]
[2016-11-20] MEDS ORDERED: CALCIUM GLUCONATE INJ 1 GM in DEXTROSE 5% IN WATER 100ML INJ 100 ML IV ONE ×2 (12:00)
[2016-11-20] MEDS ORDERED: MAGNESIUM SULFATE INJ 2 GM in SODIUM CHLORIDE 0.9% INJ 96 ML IV PRN (12:30)
[2016-11-20] MEDS ORDERED: POTASSIUM CHLOR 20 MEQ PREMIX 100 ML IV PRN ×2 (12:30)
[2016-11-20] MEDS ORDERED: POTASSIUM CL 40 MEQ/30 ML LIQ UDC PO/TUBE PRN ×2 (12:30)
[2016-11-20] MEDS ORDERED: POTASSIUM PHOSPHATE INJ 30 MMOL in SODIUM CHLOR 0.9% 250 ML INJ 250 ML IV ONE (12:30)
[2016-11-20] MEDS ORDERED: POTASSIUM PHOSPHATE MONOBASIC 500 MG TAB PO/TUBE PRN (12:30)
[2016-11-20] MEDS ORDERED: POTASSIUM CHLOR 40 MEQ PREMIX 100 ML IV PRN ×2 (12:30)
[2016-11-20] MEDS ORDERED: SENNOSIDES SYRUP 8.8 MG/5 ML CUP PO ONE (12:30)
[2016-11-20] MEDS ORDERED: DEXTROSE 50% IN WATER 50 ML VIAL(D50) IV PUSH PRN (12:30)
[2016-11-20] MEDS ORDERED: SODIUM PHOSPHATE INJ 30 MMOL in SODIUM CHLOR 0.9% 250 ML INJ 240 ML IV PRN (12:30)
[2016-11-20] MEDS ORDERED: MAGNESIUM SULFATE INJ 4 GM in SODIUM CHLORIDE 0.9% INJ 92 ML IV PRN (12:30)
[2016-11-20] MEDS ORDERED: GLUCAGON 1 MG/ML VIAL OTHER PRN (12:30)
[2016-11-20] MEDS ORDERED: POTASSIUM PHOSPHATE MONOBASIC 500 MG TAB PO PRN (12:30)
[2016-11-20] MEDS ORDERED: MAGNESIUM OXIDE 400 MG TAB PO PRN (12:30)
[2016-11-20] MEDS ORDERED: POTASSIUM PHOSPHATE INJ 30 MMOL in SODIUM CHLOR 0.9% 250 ML INJ 250 ML IV PRN (12:30)
--- NOTE | 2016-11-20 12:35 | HHI.CCPN ---
Subjective Remarks/Hospital Course 65-year-old gentleman has history of hyperlipidemia and asthma, he awoke, had some intermittent chest pain symptoms, began to become progressively worse over the course of the early afternoon. He came over to [facility], where an EKG showed new left bundle with ST-elevation anterolaterally. He was taken emergently to cardiac catheterization lab where his LAD was stented. At the end of the procedure patients suffered near cardiac arrest requiring intubation intra-aortic balloon pump placement and IV vasopressors. Critical care medicine was consulted to manage ventilatory dependent respiratory failure and assist with medical management. Subjective 11/20: Currently sedated on propofol drip. Remains on Osman-Synephrine at 90 g a minute. Tube feeds have not been initiated. No bowel movement. Remains on intra-aortic balloon pump 1:1 Objective Vital Signs Date Time Temp Pulse Resp B/P Pulse Ox O2 Delivery O2 Flow Rate FiO2 11/20/16 11:25 97 40 11/20/16 11:00 Mechanical Ventilator 11/20/16 11:00 81/61 11/20/16 11:00 86 11/20/16 11:00 99.3 22 11/19/16 18:07 2.00 Result Diagram: 11/20/16 0355 11/20/16 0730 Imaging Last Impressions Chest X-Ray 11/20/16 0600 Signed Impressions: Service Date/Time: Sunday, November 20, 2016 04:51 - CONCLUSION: Lungs are underinflated with atelectasis at the left lung base. Otherwise, no acute finding is identified. Remi Altman MD Objective Remarks GENERAL: 65-year-old Kim male, critically ill currently resting in bed in no acute distress SKIN: Warm and dry. No rash HEAD: Normocephalic. EYES: Positive chemosis. PERRL NECK: Supple, trachea midline. No JVD or lymphadenopathy. CARDIOVASCULAR: Regular rate and rhythm. S1, S2 no S4. IABP appreciated RESPIRATORY: Breath sounds equal bilaterally. Distant. GASTROINTESTINAL: Abdomen soft, non-tender, nondistended. Hypoactive bowel sounds MUSCULOSKELETAL: No significant peripheral edema. Right groin is clean dry and intact with balloon pump/venous sheath and transvenous pacemaker BACK: Nontender without obvious deformity. No CVA tenderness. Procedures Cardiac catheterization - BMS LAD TVP Urinary Catheter: Yes Assessment to: Continue Madsen insert reason: Prolonged Immobilization A/P Problem List: (1) STEMI (ST elevation myocardial infarction) ICD Code: I21.3 Status: Acute (2) Acute respiratory failure ICD Code: J96.00 Status: Acute (3) Cardiogenic shock ICD Code: R57.0 Status: Acute (4) Dyslipidemia ICD Code: E78.5 Status: Acute (5) Obesity hypoventilation syndrome ICD Code: E66.2 Status: Acute Assessment and Plan Neuro/Psych: Patient is currently on propofol drip at 70 mcg/kg per minute for sedation while intubated. Added Versed/fentanyl drip to wean propofol Goal of RASS -2 Daily sedation vacation CV: Acute systolic heart failure Cardiogenic shock Dyslipidemia IABP 1:1 Dr. Minor/cardiology following On Osman-Synephrine 90 g per minute. Lasix 40 mg IV twice a day for systolic heart failure. echoCardiogram- EF 20-25%. Distal anterior hypokinesis. Trace TR. Small pericardial effusion Cardiac catheterization - LAD 100% proximally status post BMS, ramus intermedius 90%. Mid circumflex 90%. OM1 90%. RCA 90% proximally stenosed Placement of transvenous pacemaker. Currently on cangrelor drip CT surgery consultation Continue with aspirin 81 mg by mouth daily. On Lipitor 40 mg by mouth daily for dyslipidemia. On lovastatin 10 mg by mouth daily at home. Lipid panel within normal limits. Resp: Acute respiratory failure Allergic rhinitis ACV 16/600/5/40 Ventilator bundle Duonebs every 4 hours and as needed Spontaneous breathing trials when indicated Follow-up chest x-ray in a.m. with ABG On Vicenta/Claritin home. This is been held GI: Transaminitis Elevated CPK Start tube feeds of Jevity 1.5 goal 55 cc an hour. Protonix for GI prophylaxis Colace/as needed Senokot for bowel regimen Follow-up cPK/LFTs in a.m. Liver ultrasound/hepatitis panel pending : Madsen has been placed for accurate I's and O's in a critically ill patient Endo: Sliding-scale insulin with Accu-Cheks to maintain euglycemia. Low regimen. Every 6 hours. Renal: Creatinine currently within normal limits. Monitor urine output closely. Heme: CBC within normal limits. Recheck in AM. On heparin drip and cangrelor drip. ID: Monitor for infection FEN: Hypophosphatemia 30 mmol potassium phosphate IV 1. Recheck potassium this evening. MSK: Range of motion therapy only at this present time Access - Peripheral IVs. Central line if indicated - Right radial artery line, venous sheath right groin/intraorbital pump/ transvenous pacer day #2 Prophylaxis - GI - Protonix - DVT - heparin drip Critical Care: The total critical care time was 35 minutes. Time to perform other separately billable procedures was not included in the critical care time. Last Impressions Chest X-Ray 11/20/16 0600 Signed Impressions: Service Date/Time: Sunday, November 20, 2016 04:51 - CONCLUSION: Lungs are underinflated with atelectasis at the left lung base. Otherwise, no acute finding is identified. Remi Altman MD Acute respiratory failure - Intubated in cardiac - Continue mechanical ventilation - SBT trials in the morning if hemodynamically improved - Continue DuoNeb Asthma - No exacerbation - DuoNeb Obesity hypoventilation syndrome - Not an issue while intubated Cardiogenic shock - Due to STEMI - Management per space technologist - Aortic balloon pump STEMI - Status post LAD intervention - C ABG on Wednesday if hemodynamically stable Dyslipidemia - Statin DVT GI prophylaxis - Heparin drip Pepcid Critical Care: The total critical care time was 35 minutes. Time to perform other separately billable procedures was not included in the critical care time. Baldev Higgins MD Nov 20, 2016 12:35
[2016-11-20] MEDS: fentaNYL DRIP 250 ML IV SCH (14:05)
[2016-11-20] MEDS: MIDAZOLAM 100 MG/ML INJ 100 ML IV SCH (14:05)
[2016-11-20] MEDS: PANTOPRAZOLE SODIUM 40 MG VIAL IV PUSH SCH (14:06)
--- NOTE | 2016-11-20 14:08 | EKG ---
Date Performed: 11/19/2016 Time Performed: 17:32:25 PTAGE: 65 years EKG: SINUS TACHYCARDIA INTRAVENTRICULAR CONDUCTION DELAY LATERAL MYOCARDIAL INFARCTION ACUTE OR Compared to the PREVIOUS TRACING , the patient has developed anterolateral ST elevation and ST elevation in the high lateral wall very suggestive of ST segment elevation infarct although the changes could b e secondary to the conduction disturbance. Significant serial changes have occurred and clinical marla elation will be important. PREVIOUS TRACIN05/18/2016 14.33 DOCTOR: Leeanna Thompson Interpretating Date/Time 11/20/2016 14:08:01
--- NOTE | 2016-11-20 14:10 | EKG ---
Date Performed: 11/20/2016 Time Performed: 06:05:32 PTAGE: 65 years EKG: Sinus rhythm Left axis deviation IV conduction defect ANTEROSEPTAL INFARCT - POSSIBLY ACUTE Inferior/late ral ST-T changes are nonspecific Compared to the previous tracing there is less widening of the QRS c omplex. There has been improvement in the inferior ST depression but it does persist. Serial tracings remain consistent with a possible acute ST segment elevation infarct and clinical correlation will b e important. Abnormal ECG PREVIOUS TRACING : 11/19/2016 17.32 DOCTOR: Leeanna Thompson Interpretating Date/Time 11/20/2016 14:09:21
[2016-11-20] MEDS: INSULIN NovoLIN REGULAR SUPPLEMENTAL SCALE SQ SCH (18:00)
--- NOTE | 2016-11-20 18:42 | RADRPT ---
EXAM DATE/TIME: 11/20/2016 15:47 [facility] COMPARISON: No previous studies available for comparison. INDICATIONS : Increased lab values. MEDICAL HISTORY : Myocardial infarction. Asthma. Hyperlipidemia. Chest pain. SURGICAL HISTORY : None. ENCOUNTER: Initial ACUITY: 1 day PAIN SCORE: Nonresponsive. LOCATION: Abdomen. MEASUREMENTS: LIVER: 15.4 cm length COMMON DUCT: 3 mm RIGHT KIDNEY: 10.3 x 5.7 x 4.5 cm SPLEEN: non visualized. FINDINGS: The liver is slightly echogenic which maybe due to fatty infiltration and or hepatocellular dysfuncti on. The gallbladder is intact without any evidence for gallstones, gallbladder wall thickening, or pe richolecystic fluid. The visualized head of the pancreas, and right kidney appear grossly intact for technique. CONCLUSION: The liver is slightly echogenic which maybe due to fatty infiltration and or hepatoce llular dysfunction. Kandi Ace MD on November 20, 2016 at 18:39 Board Certified Radiologist. This report was verified electronically.
[2016-11-20] MEDS: ARTIFICIAL TEARS OPTH OINT 3.5 APPLIC/3.5 GM TUBO EACH EYE SCH (21:00)
[2016-11-20 22:35] LABS: APTT (PATIENT) 36.6 SEC (24.3-30.1)
[2016-11-21] VITALS (12 sets, daily range): BP systolic 66–120; BP diastolic 43–65; PULSE 90–103; RESP 16; TEMP 99.7–100.4; O2SAT 95–100
[2016-11-21] MEDS: PROPOFOL 1000 MG/100 ML IV SCH ×3 (01:41→16:24)
[2016-11-21] MEDS: CANGRELOR INJ 50,000 MCG in SODIUM CHLOR 0.9% 250 ML INJ 250 ML IV PRN ×6 (01:42→15:49)
[2016-11-21] MEDS: DOCUSATE SODIUM 100 MG/10 ML UDC PO SCH ×3 (03:35→21:06)
[2016-11-21] MEDS: CHLORHEXIDINE 0.12% (ORAL KIT) 15 ML CUP MT SCH ×3 (03:36→21:05)
[2016-11-21] MEDS: ATORVASTATIN 40 MG TAB PO SCH ×2 (03:36→21:05)
[2016-11-21] MEDS: RESP: ALBUTEROL 2.5 MG/IPRATROPIUM 0.5 MG NEB (SCH) NEB ×6 (04:35→23:46)
[2016-11-21 04:44] LABS: APTT (PATIENT) 40.3 SEC (24.3-30.1); AUTOMATED NEUTROPHIL # 4.7 TH/MM3 (1.8-7.7); BASOPHIL % 0.7 % (0.0-2.0); EOSINOPHIL # 0.1 TH/MM3 (0-0.4); EOSINOPHIL % 1.3 % (0.0-4.0); HEMATOCRIT 36.8 % (39.0-51.0); HEMO FLAGS DIFF FINAL; LYMPH % 24.2 % (9.0-44.0); LYMPHOCYTE # 1.8 TH/MM3 (1.0-4.8); MEAN CELL VOLUME 90.5 FL (80.0-100.0); MEAN CORPUSCULAR HEMOGLOBIN 30.3 PG (27.0-34.0); MEAN CORPUSCULAR HGB CONC 33.4 % (32.0-36.0); MONO % 10.7 % (0.0-8.0); NEUT % 63.1 % (16.0-70.0); PLATELET COUNT 202 TH/MM3 (150-450); RED BLOOD COUNT 4.07 MIL/MM3 (4.50-5.90); RED CELL DISTRIBUTION WIDTH 14.2 % (11.6-17.2); WHITE BLOOD COUNT 7.4 TH/MM3 (4.0-11.0)
[2016-11-21 04:57] LABS: BLOOD GAS BASE EXCESS -0.3 mmol/L (-2-2); BLOOD GAS CARBOXYHEMOGLOBIN 1.2 % (0-4); BLOOD GAS HCO3 24 mmol/L (22-26); BLOOD GAS O2 HGB SATURATION 97 % (90-100); BLOOD GAS OXYGEN CONTENT 17.4 Vol % (12.0-20.0); BLOOD GAS PCO2 37 mmHg (38-42); BLOOD GAS PO2 158 mmHg (61-120); BLOOD GAS TOTAL HGB 12.5 G/DL (12.0-16.0); CRITICAL VALUE NO; DRAW SITE ALINE; FIO2 40 %; OXYGEN DEVICE VENTILATOR; TEMP CORR TO 98.6; VENT SETTINGS AC/16/600/PEEP5
[2016-11-21 04:58] LABS: STAT NO
[2016-11-21 05:31] LABS: CALCIUM-PROTEIN CORRECTED 7.8 MG/DL (8.5-10.1); POTASSIUM 3.6 MEQ/L (3.5-5.1); TOTAL BILIRUBIN ADULT 0.5 MG/DL (0.2-1.0)
--- NOTE | 2016-11-21 05:50 | RADRPT ---
EXAM DATE/TIME: 11/21/2016 04:35 [facility] COMPARISON: CHEST SINGLE AP, November 20, 2016, 4:51. INDICATIONS : Shortness of breath, possible pulmonary disease. MEDICAL HISTORY : Asthma SURGICAL HISTORY : None. ENCOUNTER: Subsequent ACUITY: 2 days PAIN SCORE: Non-responsive. LOCATION: Bilateral chest FINDINGS: Portable AP view of the chest demonstrates a normal-sized cardiac silhouette. ETT and nasogastric tub e remain present. There is elevation left hemidiaphragm with left basilar opacity. No pneumothorax or pleural effusion is visualized. CONCLUSION: Stable chest x-ray. There is elevation of the left hemidiaphragm with atelectasis at the left lung ba se. Remi Altman MD on November 21, 2016 at 5:48 Board Certified Radiologist. This report was verified electronically.
[2016-11-21] MEDS: INSULIN NovoLIN REGULAR SUPPLEMENTAL SCALE SQ SCH ×4 (06:00→17:59)
[2016-11-21 06:05] LABS: CKMB 157.4 NG/ML (0.5-3.6)
[2016-11-21] MEDS: fentaNYL DRIP 250 ML IV SCH ×2 (06:54→19:58)
[2016-11-21] MEDS: PHENYLEPHRINE INJ 40 MG in DEXTROSE 5% IN WATE 500 ML INJ 496 ML IV SCH ×2 (07:07)
[2016-11-21] MEDS: MIDAZOLAM 100 MG/ML INJ 100 ML IV SCH (07:58)
[2016-11-21] MEDS: HEPARIN-D5W INJ 250 ML IV SCH (08:19)
[2016-11-21] MEDS: FUROSEMIDE 40 MG/4 ML VIAL IV PUSH SCH ×2 (08:49→17:59)
[2016-11-21] MEDS: ASPIRIN 81 MG CHEW TAB PO SCH (08:50)
[2016-11-21] MEDS: FERROUS SULFATE 325 MG (65 MG ELEMENTAL IRON) TAB PO SCH (08:50)
[2016-11-21] MEDS ORDERED: SENNOSIDES SYRUP 8.8 MG/5 ML CUP PO SCH (09:00)
--- NOTE | 2016-11-21 09:52 | PD.CARD.PN ---
Subjective Subjective Remarks The chart was reviewed and the spoken with. The patient is intubated, sedated and on Osman-Synephrine for blood pressure. Groins are dry. Intra- aortic balloon pump at 1-1. Sinus rhythm. Objective Medications Reviewed Vital Signs / I&O Vital Signs Date Time Temp Pulse Resp B/P Pulse Ox O2 Delivery O2 Flow Rate FiO2 11/21/16 08:00 95 Mechanical Ventilator 40 11/21/16 08:00 96 11/21/16 08:00 100.1 96 16 119/65 95 120/48 11/21/16 08:00 40 11/21/16 08:00 82/60 11/21/16 07:36 97 40 11/21/16 06:00 77/57 11/21/16 05:00 71/52 11/21/16 04:00 68/47 11/21/16 03:00 91 11/21/16 03:00 96 Mechanical Ventilator 40 11/21/16 03:00 99.9 90 16 109/43 96 66/46 11/21/16 03:00 96 40 11/21/16 03:00 40 11/21/16 03:00 66/46 11/21/16 02:00 67/48 11/21/16 01:00 70/49 11/21/16 00:00 70/49 11/20/16 23:23 99 40 11/20/16 23:00 99 Mechanical Ventilator 40 11/20/16 23:00 40 11/20/16 23:00 100.3 90 16 107/48 99 72/51 11/20/16 23:00 72/51 11/20/16 23:00 95 11/20/16 22:00 73/47 11/20/16 21:00 77/52 11/20/16 20:03 99 40 11/20/16 20:00 78/53 11/20/16 19:00 100 11/20/16 19:00 99 Mechanical Ventilator 40 11/20/16 19:00 100.4 95 16 122/67 99 83/53 11/20/16 19:00 40 11/20/16 19:00 83/53 11/20/16 18:00 81/53 11/20/16 17:31 99 40 11/20/16 17:00 80/58 2/3/17 16:00 82/58 11/20/16 15:00 91/63 11/20/16 15:00 40 11/20/16 15:00 100.4 96 22 120/53 97 91/68 11/20/16 15:00 98 Mechanical Ventilator 40 11/20/16 15:00 96 11/20/16 14:00 88/61 11/20/16 13:00 93/61 11/20/16 12:00 83/53 11/20/16 11:25 97 40 11/20/16 11:00 98 Mechanical Ventilator 40 11/20/16 11:00 81/61 11/20/16 11:00 86 11/20/16 11:00 99.3 85 22 124/50 98 81/61 11/20/16 11:00 40 11/20/16 10:00 83/62 I/O 11/20/16 11/20/16 11/20/16 11/21/16 11/21/16 11/21/16 07:00 15:00 23:00 07:00 15:00 23:00 Intake Total 3210 ml 2882 ml 2544 ml Output Total 2550 ml 4140 ml 1700 ml Balance 660 ml -1258 ml 844 ml Intake IV Total 3210 ml 2882 ml 2329 ml Tube Feeding 125 ml Other 90 ml Output Urine Total 2300 ml 4140 ml 1700 ml Gastric Drainage Total 250 ml # Bowel Movements 0 0 0 Physical Exam GENERAL: Obese. Intubated and sedated. SKIN: Warm and dry. NECK: JVD normal - less than or equal to 5 cm H20. CARDIOVASCULAR: Regular rate and rhythm without murmurs, gallops, or rubs. RESPIRATORY: Normal breath sounds - equal bilaterally. No accessory muscle use. No wheezes, rales or rubs. PERIPHERY: No cyanosis, or edema. Laboratory Laboratory Tests Test 11/20/16 11/20/16 11/20/16 11/21/16 12:00 18:00 21:36 04:15 Activated Partial 34.0 SEC 36.6 SEC 40.3 SEC Thromboplast Time Potassium Level 3.9 MEQ/L 3.6 MEQ/L White Blood Count 7.4 TH/MM3 Red Blood Count 4.07 MIL/MM3 Hemoglobin 12.3 GM/DL Hematocrit 36.8 % Mean Corpuscular Volume 90.5 FL Mean Corpuscular Hemoglobin 30.3 PG Mean Corpuscular Hemoglobin 33.4 % Concent Red Cell Distribution Width 14.2 % Platelet Count 202 TH/MM3 Mean Platelet Volume 8.2 FL Neutrophils (%) (Auto) 63.1 % Lymphocytes (%) (Auto) 24.2 % Monocytes (%) (Auto) 10.7 % Eosinophils (%) (Auto) 1.3 % Basophils (%) (Auto) 0.7 % Neutrophils # (Auto) 4.7 TH/MM3 Lymphocytes # (Auto) 1.8 TH/MM3 Monocytes # (Auto) 0.8 TH/MM3 Eosinophils # (Auto) 0.1 TH/MM3 Basophils # (Auto) 0.0 TH/MM3 CBC Comment DIFF FINAL Differential Comment Sodium Level 140 MEQ/L Chloride Level 107 MEQ/L Carbon Dioxide Level 26.0 MEQ/L Anion Gap 7 MEQ/L Blood Urea Nitrogen 14 MG/DL Creatinine 1.07 MG/DL Estimat Glomerular Filtration 84 ML/MIN Rate Random Glucose 109 MG/DL Calcium Level 7.3 MG/DL Protein Corrected Calcium 7.8 MG/DL Phosphorus Level 2.8 MG/DL Magnesium Level 2.0 MG/DL Total Bilirubin 0.5 MG/DL Aspartate Amino Transf 567 U/L (AST/SGOT) Alanine Aminotransferase 139 U/L (ALT/SGPT) Alkaline Phosphatase 59 U/L Total Creatine Kinase 4552 U/L Creatine Kinase MB 157.4 NG/ML Creatine Kinase MB % 3.5 % Total Protein 6.2 GM/DL Albumin 2.6 GM/DL Test 11/21/16 04:46 Blood Gas Puncture Site [id number] Blood Gas Patient Temperature 98.6 Blood Gas HCO3 24 mmol/L Blood Gas Base Excess -0.3 mmol/L Blood Gas Oxygen Saturation 97 % Arterial Blood pH 7.42 Arterial Blood Partial 37 mmHg Pressure CO2 Arterial Blood Partial 158 mmHg Pressure O2 Arterial Blood Oxygen Content 17.4 Vol % Arterial Blood 1.2 % Carboxyhemoglobin Arterial Blood Methemoglobin 1.0 % Blood Gas Hemoglobin 12.5 G/DL Oxygen Delivery Device VENTILATOR Blood Gas Ventilator Setting [id number]/16/600/[id number] Blood Gas Inspired Oxygen 40 % Imaging Last 48 hours Impressions Chest X-Ray 11/21/16 0600 Signed Impressions: Service Date/Time: Monday, November 21, 2016 04:35 - CONCLUSION: Stable chest x-ray. There is elevation of the left hemidiaphragm with atelectasis at the left lung base. Remi Altman MD Chest X-Ray 11/20/16 0600 Signed Impressions: Service Date/Time: Sunday, November 20, 2016 04:51 - CONCLUSION: Lungs are underinflated with atelectasis at the left lung base. Otherwise, no acute finding is identified. Remi Altman MD Liver Ultrasound 11/20/16 0000 Signed Impressions: Service Date/Time: Sunday, November 20, 2016 15:47 - CONCLUSION: The liver is slightly echogenic which maybe due to fatty infiltration and or hepatocellular dysfunction. Kandi Ace MD Assessment and Plan Assessment and Plan Problems: Large ST elevation [place] with cardiogenic shock on pressors and intra-aortic balloon pump. Multivessel coronary artery disease Hyperlipidemia Obesity Recommendations: The patient is in critical condition and guarded prognosis. Hopefully his situation will improve and after speaking with Dr. rey the goal would be to try to do more stenting on him. I have discussed the situation with the who understands it is a day by day process and that the patient may or may not survive this. I did speak with Dr. rey and we will switch him from intravenous Cangrelor to oral Plavix. We will continue intra-aortic balloon pump and pressors along with supportive care from critical care. Luis Martinez MD Nov 21, 2016 09:52
[2016-11-21] MEDS ORDERED: CLOPIDOGREL 300 MG TAB PO ONE (10:00)
--- NOTE | 2016-11-21 10:38 | HHI.CCPN ---
Subjective Remarks/Hospital Course 65-year-old gentleman has history of hyperlipidemia and asthma, he awoke, had some intermittent chest pain symptoms, began to become progressively worse over the course of the early afternoon. He came over to [facility], where an EKG showed new left bundle with ST-elevation anterolaterally. He was taken emergently to cardiac catheterization lab where his LAD was stented. At the end of the procedure patients suffered near cardiac arrest requiring intubation intra-aortic balloon pump placement and IV vasopressors. Critical care medicine was consulted to manage ventilatory dependent respiratory failure and assist with medical management. 11/20: Currently sedated on propofol drip. Remains on Osman-Synephrine at 90 g a minute. Tube feeds have not been initiated. No bowel movement. Remains on intra-aortic balloon pump 1:1 Subjective 11/21: Currently sedated on propofol infusion, Versed and fentanyl drips. Remains on Osman-Synephrine at 65 g a minute. Tube feeds currently at 30 cc an hour. No bowel movement. Remains on intra-aortic balloon pump at 1:1 ratio. Objective Vital Signs Date Time Temp Pulse Resp B/P Pulse Ox O2 Delivery O2 Flow Rate FiO2 11/21/16 08:00 95 Mechanical Ventilator 40 11/21/16 08:00 96 11/21/16 08:00 100.1 16 119/65 120/48 11/19/16 18:07 2.00 Intake and Output 11/20/16 11/20/16 11/21/16 08:00 16:00 00:00 Intake Total 3210 ml 2882 ml Output Total 2550 ml 4140 ml Balance 660 ml -1258 ml Result Diagram: 11/21/16 0415 11/21/16 0415 Imaging Last Impressions Chest X-Ray 11/21/16 0600 Signed Impressions: Service Date/Time: Monday, November 21, 2016 04:35 - CONCLUSION: Stable chest x-ray. There is elevation of the left hemidiaphragm with atelectasis at the left lung base. Remi Altman MD Liver Ultrasound 11/20/16 0000 Signed Impressions: Service Date/Time: Sunday, November 20, 2016 15:47 - CONCLUSION: The liver is slightly echogenic which maybe due to fatty infiltration and or hepatocellular dysfunction. Kandi Ace MD Objective Remarks GENERAL: 65-year-old Kim male, critically ill currently resting in bed in no acute distress SKIN: Warm and dry. No rash HEAD: Normocephalic. EYES: Positive chemosis. PERRL NECK: Supple, trachea midline. No JVD or lymphadenopathy. CARDIOVASCULAR: Regular rate and rhythm. S1, S2 no S4. IABP overriding RESPIRATORY: Breath sounds equal bilaterally. Distant. GASTROINTESTINAL: Abdomen soft, non-tender, nondistended. Hypoactive bowel sounds. MUSCULOSKELETAL: No significant peripheral edema. Right groin is clean dry and intact with balloon pump/venous sheath and transvenous pacemaker BACK: Nontender without obvious deformity. No CVA tenderness. Procedures Cardiac catheterization - BMS LAD TVP Urinary Catheter: Yes Assessment to: Continue Madsen insert reason: Prolonged Immobilization A/P Problem List: (1) STEMI (ST elevation myocardial infarction) ICD Code: I21.3 Status: Acute (2) Acute respiratory failure ICD Code: J96.00 Status: Acute (3) Cardiogenic shock ICD Code: R57.0 Status: Acute (4) Dyslipidemia ICD Code: E78.5 Status: Acute (5) Obesity hypoventilation syndrome ICD Code: E66.2 Status: Acute Assessment and Plan Neuro/Psych: Patient is currently on propofol drip at 20 mcg/kg per minute for sedation while intubated. Added Versed at 5 mg an hour/fentanyl drip at 150 g an hour to wean propofol Goal of RASS -2 Daily sedation vacation CV: Acute systolic heart failure Cardiogenic shock Dyslipidemia IABP 1:1 Dr. Minor/cardiology following On Osman-Synephrine 65 g per minute. Lasix 40 mg IV twice a day for systolic heart failure. echoCardiogram- EF 20-25%. Distal anterior hypokinesis. Trace TR. Small pericardial effusion Cardiac catheterization - LAD 100% proximally status post BMS, ramus intermedius 90%. Mid circumflex 90%. OM1 90%. RCA 90% proximally stenosed Placement of transvenous pacemaker. In right femoral region Currently on cangrelor drip - transition to Plavix loaded with 600 mg at [address] surgery consultation - no intervention planned Continue with aspirin 81 mg by mouth daily. On Lipitor 40 mg by mouth daily for dyslipidemia. On lovastatin 10 mg by mouth daily at home. Lipid panel within normal limits. Resp: Acute respiratory failure Allergic rhinitis PRVC16/600/10/22/39 Ventilator bundle Duonebs every 4 hours and as needed Spontaneous breathing trials when indicated Follow-up chest x-ray in a.m. with ABG revealed left lower lobe atelectasis On Vicenta/Claritin home. This is been held GI: Transaminitis Elevated CPK Start tube feeds of Jevity 1.5 goal 55 cc an hour. Protonix for GI prophylaxis Colace/as needed Senokot for bowel regimen Follow-up CPK/LFTs in a.m. noted CPK 4500. LFTs are trending downward. Check ammonia level in a.m. Liver ultrasound revealed likely MCCALLUM/hepatitis panel pending : Madsen has been placed for accurate I's and O's in a critically ill patient Endo: Sliding-scale insulin with Accu-Cheks to maintain euglycemia. Low regimen. Every 6 hours. Renal: Creatinine currently within normal limits. Monitor urine output closely. Heme: Normocytic anemia CBC essentially stable Recheck in AM. On heparin drip and cangrelor drip. Cangrelor to be discontinued and Plavix to be loaded with 600 mg 1 today and started 75 mg daily maintenance dose ID: Pyrexia Monitor for infection FEN: Hypopotassemia Start on scheduled potassium 20 mEq once twice a day while on Lasix. Recheck potassium this evening. MSK: Range of motion therapy only at this present time Access - Peripheral IVs. Central line if indicated - Right radial artery line, venous sheath right groin/intraorbital pump/ transvenous pacer day #3 Prophylaxis - GI - Protonix - DVT - heparin drip Critical Care: The total critical care time was 35 minutes. Time to perform other separately billable procedures was not included in the critical care time. Baldev Higgins MD Nov 21, 2016 10:38
[2016-11-21] MEDS ORDERED: POTASSIUM CL 40 MEQ/30 ML LIQ UDC OG-TUBE ONE (10:45)
[2016-11-21] MEDS: PANTOPRAZOLE SODIUM 40 MG VIAL IV PUSH SCH (11:41)
[2016-11-21 12:07] LABS: APTT (PATIENT) 41.1 SEC (24.3-30.1)
[2016-11-21] MEDS: ARTIFICIAL TEARS OPTH OINT 3.5 APPLIC/3.5 GM TUBO EACH EYE SCH ×2 (12:10→21:05)
[2016-11-21] MEDS: POLYETHYLENE GLYCOL 17 GM PKG PO/NG SCH (21:04)
[2016-11-21] MEDS: SODIUM CHLORIDE 0.9% FLUSH 5 ML FLUSH IVF PRN (21:05)
[2016-11-21] MEDS: POTASSIUM CL 40 MEQ/30 ML LIQ UDC NG SCH (21:05)
[2016-11-21] MEDS: SENNOSIDES SYRUP 8.8 MG/5 ML CUP PO/TUBE SCH (21:05)
[2016-11-22] VITALS (17 sets, daily range): BP systolic 75–139; BP diastolic 54–79; PULSE 104–126; RESP 16; TEMP 99.1–101.1; O2SAT 93–100
[2016-11-22] MEDS: MIDAZOLAM 100 MG/ML INJ 100 ML IV SCH (02:07)
[2016-11-22] MEDS: PROPOFOL 1000 MG/100 ML IV SCH ×2 (02:45→20:57)
[2016-11-22] MEDS: RESP: ALBUTEROL 2.5 MG/IPRATROPIUM 0.5 MG NEB (SCH) NEB ×5 (03:24→20:04)
[2016-11-22 03:56] LABS: BACTERIA, URINE RARE /hpf; BLOOD, URINE SMALL (NEG); GLUCOSE,URINE NEG (NEG); KETONE, URINE NEG (NEG); MUCUS URINE FEW /lpf (OCC); NITRITE,URINE NEG (NEG); PH, URINE 5.5 (5.0-8.5); URINE COLOR YELLOW (YELLW/STRAW)
[2016-11-22 03:57] LABS: COMMENT (UR) CATH-CULTURE IND; CULTURE IF INDICATED CATH CULTURE IND
--- NOTE | 2016-11-22 04:15 | RADRPT ---
EXAM DATE/TIME: 11/22/2016 03:11 [facility] COMPARISON: CHEST SINGLE AP, November 21, 2016, 4:35. INDICATIONS : Shortness of breath, possible pulmonary disease. MEDICAL HISTORY : Asthma SURGICAL HISTORY : None. ENCOUNTER: Subsequent ACUITY: 3 days PAIN SCORE: Non-responsive. LOCATION: Bilateral chest FINDINGS: Portable AP view of the chest demonstrates a normal-sized cardiac silhouette. ETT and nasogastric tub e remain present. Lungs are underinflated and there is stable elevation of the left hemidiaphragm wit h atelectasis at the left lung base. No pleural effusion or pneumothorax is seen. CONCLUSION: Stable chest x-ray with elevated left hemidiaphragm and atelectasis at the left lung base. Remi Altman MD on November 22, 2016 at 4:13 Board Certified Radiologist. This report was verified electronically.
[2016-11-22] MEDS: HEPARIN-D5W INJ 250 ML IV SCH (05:29)
[2016-11-22] MEDS: INSULIN NovoLIN REGULAR SUPPLEMENTAL SCALE SQ SCH ×4 (06:00→18:00)
[2016-11-22 06:03] LABS: AUTOMATED NEUTROPHIL # 6.8 TH/MM3 (1.8-7.7); BASOPHIL # 0.1 TH/MM3 (0-0.2); BASOPHIL % 0.6 % (0.0-2.0); EOSINOPHIL # 0.2 TH/MM3 (0-0.4); EOSINOPHIL % 2.3 % (0.0-4.0); HEMATOCRIT 36.9 % (39.0-51.0); HEMO FLAGS DIFF FINAL; LYMPH % 9.8 % (9.0-44.0); LYMPHOCYTE # 0.9 TH/MM3 (1.0-4.8); MEAN CORPUSCULAR HEMOGLOBIN 30.8 PG (27.0-34.0); MEAN CORPUSCULAR HGB CONC 33.9 % (32.0-36.0); MONO % 12.1 % (0.0-8.0); NEUT % 75.2 % (16.0-70.0); PLATELET COUNT 165 TH/MM3 (150-450); RED BLOOD COUNT 4.05 MIL/MM3 (4.50-5.90); RED CELL DISTRIBUTION WIDTH 14.4 % (11.6-17.2)
[2016-11-22 06:13] LABS: ALKALINE PHOSPHATASE 62 U/L (45-117); ALT (GPT) 108 U/L (12-78); ANION GAP 10 MEQ/L (5-15); AST (GOT) 278 U/L (15-37); BICARBONATE 26.4 MEQ/L (21.0-32.0); BLOOD UREA NITROGEN 15 MG/DL (7-18); CHLORIDE 101 MEQ/L (98-107); GLOMERULAR FILTRATION RATE 88 ML/MIN (>89); MAGNESIUM 2.1 MG/DL (1.5-2.5); POTASSIUM 3.8 MEQ/L (3.5-5.1); SODIUM (NA) 137 MEQ/L (136-145); TOTAL BILIRUBIN ADULT 0.6 MG/DL (0.2-1.0)
[2016-11-22 06:41] LABS: APTT (PATIENT) 34.2 SEC (24.3-30.1)
[2016-11-22 07:55] LABS: BLOOD GAS BASE EXCESS 0.6 mmol/L (-2-2); BLOOD GAS CARBOXYHEMOGLOBIN 1.3 % (0-4); BLOOD GAS HCO3 25 mmol/L (22-26); BLOOD GAS O2 HGB SATURATION 96 % (90-100); BLOOD GAS OXYGEN CONTENT 17.6 Vol % (12.0-20.0); BLOOD GAS PCO2 38 mmHg (38-42); BLOOD GAS PO2 121 mmHg (61-120); BLOOD GAS TOTAL HGB 12.9 G/DL (12.0-16.0); CRITICAL VALUE NO; OXYGEN DEVICE VENTILATOR; TEMP CORR TO 98.6
[2016-11-22 07:56] LABS: DRAW SITE ART LINE; FIO2 40 %; STAT NO; VENT SETTINGS PRVC16/600PEEP51.0IT
[2016-11-22] MEDS: CHLORHEXIDINE 0.12% (ORAL KIT) 15 ML CUP MT SCH ×2 (08:00→20:57)
[2016-11-22] MEDS ORDERED: Vancomycin Consult Pharmacy 1 EA OTHER SCH (09:00)
[2016-11-22] MEDS: ARTIFICIAL TEARS OPTH OINT 3.5 APPLIC/3.5 GM TUBO EACH EYE SCH ×2 (09:00→20:59)
[2016-11-22] MEDS: POLYETHYLENE GLYCOL 17 GM PKG PO/NG SCH ×2 (09:00→20:58)
--- NOTE | 2016-11-22 09:05 | PD.CARD.PN ---
Subjective Subjective Remarks The patient is intubated and sedated. Intra-aortic balloon pump at 1-1. He is on decreased pressors. Objective Medications Reviewed Vital Signs / I&O Vital Signs Date Time Temp Pulse Resp B/P Pulse Ox O2 Delivery O2 Flow Rate FiO2 11/22/16 08:00 89/73 11/22/16 07:34 100 40 11/22/16 07:00 106 11/22/16 07:00 99.7 106 16 125/71 99 125/67 11/22/16 07:00 96 Mechanical Ventilator 40 11/22/16 07:00 40 11/22/16 07:00 106 11/22/16 07:00 90/66 11/22/16 06:30 83/59 11/22/16 05:00 84/65 11/22/16 04:05 96 40 11/22/16 04:00 91/62 11/22/16 03:24 96 Mechanical Ventilator 40 11/22/16 03:24 108 11/22/16 03:24 108 11/22/16 03:24 40 11/22/16 03:24 99.1 108 16 139/56 99 125/67 11/22/16 03:00 94/65 11/22/16 02:45 99.6 11/22/16 02:00 101.1 11/22/16 02:00 90/61 11/22/16 01:00 80/59 11/22/16 00:52 94 40 11/22/16 00:19 83/59 11/21/16 23:48 103 11/21/16 23:48 101/63 11/21/16 23:48 100.3 103 16 120/63 99 116/59 11/21/16 23:48 40 11/21/16 23:48 99 Mechanical Ventilator 40 11/21/16 23:48 103 11/21/16 22:02 100 40 11/21/16 22:00 74/53 11/21/16 21:00 75/55 11/21/16 20:00 71/51 11/21/16 19:40 97 40 11/21/16 19:20 99 Mechanical Ventilator 40 11/21/16 19:20 100 11/21/16 19:20 99.7 100 16 115/47 99 119/65 11/21/16 19:10 40 11/21/16 19:00 76/52 11/21/16 19:00 100 11/21/16 18:00 78/54 11/21/16 17:00 77/56 11/21/16 16:00 84/62 11/21/16 15:30 98 40 11/21/16 15:00 40 11/21/16 15:00 101 11/21/16 15:00 99.9 101 16 117/60 98 119/46 11/21/16 15:00 96 Mechanical Ventilator 40 11/21/16 15:00 81/58 11/21/16 14:00 79/59 11/21/16 13:00 75/61 11/21/16 12:04 96 40 11/21/16 12:00 79/53 11/21/16 11:00 100.4 96 16 120/65 96 117/50 11/21/16 11:00 96 Mechanical Ventilator 40 11/21/16 11:00 96 11/21/16 11:00 82/60 11/21/16 11:00 40 11/21/16 10:00 80/60 I/O 11/21/16 11/21/16 11/21/16 11/22/16 11/22/16 11/22/16 07:00 15:00 23:00 07:00 15:00 23:00 Intake Total 2544 ml 2944 ml 1131 ml Output Total 1700 ml 1695 ml 2350 ml Balance 844 ml 1249 ml -1219 ml Intake IV Total 2329 ml 2480 ml 895 ml Tube Feeding 125 ml 294 ml 236 ml Tube Irrigant 170 ml Other 90 ml Output Urine Total 1700 ml 1695 ml 2350 ml # Bowel Movements 0 0 1 Physical Exam GENERAL: Obese. Intubated and sedated. SKIN: Warm and dry. NECK: JVD normal - less than or equal to 5 cm H20. CARDIOVASCULAR: Regular rate and rhythm without murmurs, gallops, or rubs. RESPIRATORY: Normal breath sounds - equal bilaterally. No accessory muscle use. No wheezes, rales or rubs. PERIPHERY: No cyanosis, or edema. Laboratory Laboratory Tests Test 11/21/16 11/21/16 11/22/16 11/22/16 11:50 17:29 03:31 05:22 Activated Partial 41.1 SEC 34.2 SEC Thromboplast Time Potassium Level 3.8 MEQ/L 3.8 MEQ/L Urine Color YELLOW Urine Turbidity CLEAR Urine pH 5.5 Urine Specific [place] 1.021 Urine Protein TRACE mg/dL Urine Glucose (UA) NEG mg/dL Urine Ketones NEG mg/dL Urine Occult Blood SMALL Urine Nitrite NEG Urine Bilirubin NEG Urine Urobilinogen LESS THAN 2.0 MG/DL Urine Leukocyte Esterase SMALL Urine RBC 17 /hpf Urine WBC 3 /hpf Urine Bacteria RARE /hpf Urine Mucus FEW /lpf Microscopic Urinalysis Comment CATH-CULTURE IND White Blood Count 9.0 TH/MM3 Red Blood Count 4.05 MIL/MM3 Hemoglobin 12.5 GM/DL Hematocrit 36.9 % Mean Corpuscular Volume 91.0 FL Mean Corpuscular Hemoglobin 30.8 PG Mean Corpuscular Hemoglobin 33.9 % Concent Red Cell Distribution Width 14.4 % Platelet Count 165 TH/MM3 Mean Platelet Volume 8.7 FL Neutrophils (%) (Auto) 75.2 % Lymphocytes (%) (Auto) 9.8 % Monocytes (%) (Auto) 12.1 % Eosinophils (%) (Auto) 2.3 % Basophils (%) (Auto) 0.6 % Neutrophils # (Auto) 6.8 TH/MM3 Lymphocytes # (Auto) 0.9 TH/MM3 Monocytes # (Auto) 1.1 TH/MM3 Eosinophils # (Auto) 0.2 TH/MM3 Basophils # (Auto) 0.1 TH/MM3 CBC Comment DIFF FINAL Differential Comment Sodium Level 137 MEQ/L Chloride Level 101 MEQ/L Carbon Dioxide Level 26.4 MEQ/L Anion Gap 10 MEQ/L Blood Urea Nitrogen 15 MG/DL Creatinine 1.03 MG/DL Estimat Glomerular Filtration 88 ML/MIN Rate Random Glucose 136 MG/DL Calcium Level 7.5 MG/DL Phosphorus Level 3.0 MG/DL Magnesium Level 2.1 MG/DL Total Bilirubin 0.6 MG/DL Aspartate Amino Transf 278 U/L (AST/SGOT) Alanine Aminotransferase 108 U/L (ALT/SGPT) Alkaline Phosphatase 62 U/L Total Protein 6.7 GM/DL Albumin 2.6 GM/DL Test 11/22/16 11/22/16 05:56 07:45 Ammonia 16 MCMOL/L Blood Gas Puncture Site ART LINE Blood Gas Patient Temperature 98.6 Blood Gas HCO3 25 mmol/L Blood Gas Base Excess 0.6 mmol/L Blood Gas Oxygen Saturation 96 % Arterial Blood pH 7.42 Arterial Blood Partial 38 mmHg Pressure CO2 Arterial Blood Partial 121 mmHg Pressure O2 Arterial Blood Oxygen Content 17.6 Vol % Arterial Blood 1.3 % Carboxyhemoglobin Arterial Blood Methemoglobin 1.0 % Blood Gas Hemoglobin 12.9 G/DL Oxygen Delivery Device VENTILATOR Blood Gas Ventilator Setting [id number] Blood Gas Inspired Oxygen 40 % Imaging Last 48 hours Impressions Chest X-Ray 11/22/16 06 Signed Impressions: Service Date/Time: Tuesday, November 22, 2016 03:11 - CONCLUSION: Stable chest x-ray with elevated left hemidiaphragm and atelectasis at the left lung base. Remi Altman MD Chest X-Ray 11/21/16599 Signed Impressions: Service Date/Time: Monday, November 21, 2016 04:35 - CONCLUSION: Stable chest x-ray. There is elevation of the left hemidiaphragm with atelectasis at the left lung base. Remi Altman MD Assessment and Plan Assessment and Plan Problems: Large ST elevation [place] with cardiogenic shock on pressors and intra-aortic balloon pump. Multivessel coronary artery disease Fever Hyperlipidemia Obesity Recommendations: The patient is in guarded condition. I will leave it to critical care to decide on fever management. Cultures are pending but certainly it may be worthwhile covering him with antibiotics given the fact that he does have an intra-aortic balloon pump in and considering infectious disease consult. Again , I will leave that to critical care. In the interim we will try to wean off pressors and continue intra-aortic balloon pump. Dr. Alvarez will return tomorrow. Luis Martinez MD Nov 22, 2016 09:05
--- NOTE | 2016-11-22 10:25 | HHI.CCPN ---
Subjective Remarks/Hospital Course 65-year-old gentleman has history of hyperlipidemia and asthma, he awoke, had some intermittent chest pain symptoms, began to become progressively worse over the course of the early afternoon. He came over to [facility], where an EKG showed new left bundle with ST-elevation anterolaterally. He was taken emergently to cardiac catheterization lab where his LAD was stented. At the end of the procedure patients suffered near cardiac arrest requiring intubation intra-aortic balloon pump placement and IV vasopressors. Critical care medicine was consulted to manage ventilatory dependent respiratory failure and assist with medical management. 2: Currently sedated on propofol drip. Remains on Osman-Synephrine at 90 g a minute. Tube feeds have not been initiated. No bowel movement. Remains on intra-aortic balloon pump 1:1 11/21: Currently sedated on propofol infusion, Versed and fentanyl drips. Remains on Osman-Synephrine at 65 g a minute. Tube feeds currently at 30 cc an hour. No bowel movement. Remains on intra-aortic balloon pump at 1:1 ratio. Subjective 11/22: Tmax 101.1. Currently 99.7. Currently intubated. Osman-Synephrine crease to 15 g per minute. Tube feeds at goal. Remains on intra-aortic balloon pump at 1:1 ratio. Objective Vital Signs Date Time Temp Pulse Resp B/P Pulse Ox O2 Delivery O2 Flow Rate FiO2 11/22/16 08:00 89/73 11/22/16 07:34 100 40 11/22/16 07:00 106 11/22/16 07:00 99.7 16 11/22/16 07:00 Mechanical Ventilator 11/19/16 18:07 2.00 Intake and Output 11/21/16 11/21/16 11/22/16 08:00 16:00 00:00 Intake Total 2544 ml 2944 ml Output Total 1700 ml 1695 ml Balance 844 ml 1249 ml Result Diagram: 11/22/1652111/22/16521 Other Results Microbiology Date/Time Procedure Status Source Growth 11/22/16 06:05 Aerobic Blood Culture Received Blood Peripheral Pending 11/22/16 06:05 Anaerobic Blood Culture Received Blood Peripheral Pending 11/22/16 03:31 Urine Culture Received Urine Catheterized Urine Pending 11/22/16 03:31 Gram Stain - Final Resulted Sputum Endotracheal 11/22/16 03:31 Sputum Culture Resulted Sputum Endotracheal Pending Imaging Last Impressions Chest X-Ray 11/22/16 0600 Signed Impressions: Service Date/Time: Tuesday, November 22, 2016 03:11 - CONCLUSION: Stable chest x-ray with elevated left hemidiaphragm and atelectasis at the left lung base. Remi Altman MD Liver Ultrasound 11/20/16 0000 Signed Impressions: Service Date/Time: Sunday, November 20, 2016 15:47 - CONCLUSION: The liver is slightly echogenic which maybe due to fatty infiltration and or hepatocellular dysfunction. Kandi Ace MD Objective Remarks GENERAL: 65-year-old Kim male, critically ill currently resting in bed in no acute distress SKIN: Warm and dry. No rash HEAD: Normocephalic. EYES: Positive chemosis. PERRL NECK: Supple, trachea midline. No JVD or lymphadenopathy. CARDIOVASCULAR: Regular rate and rhythm. S1, S2 no S4. IABP overriding RESPIRATORY: Breath sounds equal bilaterally. Distant. GASTROINTESTINAL: Abdomen soft, non-tender, nondistended. Hypoactive bowel sounds. MUSCULOSKELETAL: No significant peripheral edema. Right groin is clean dry and intact with balloon pump/venous sheath and transvenous pacemaker BACK: Nontender without obvious deformity. No CVA tenderness. Procedures Cardiac catheterization - BMS LAD TVP A/P Problem List: (1) STEMI (ST elevation myocardial infarction) ICD Code: I21.3 Status: Acute (2) Acute respiratory failure ICD Code: J96.00 Status: Acute (3) Cardiogenic shock ICD Code: R57.0 Status: Acute (4) Dyslipidemia ICD Code: E78.5 Status: Acute (5) Obesity hypoventilation syndrome ICD Code: E66.2 Status: Acute Assessment and Plan Neuro/Psych: Patient is currently on Versed drip at at 5 mg an hour/fentanyl drip at 150 g an hour to wean propofol Goal of RASS -2 Daily sedation vacation Acetaminophen for fever CV: Acute systolic heart failure Cardiogenic shock Dyslipidemia IABP 1:1 Dr. Minor/cardiology following On Osman-Synephrine 10 g per minute. Lasix 40 mg IV twice a day for systolic heart failure. echoCardiogram- EF 20-25%. Distal anterior hypokinesis. Trace TR. Small pericardial effusion Cardiac catheterization - LAD 100% proximally status post BMS, ramus intermedius 90%. Mid circumflex 90%. OM1 90%. RCA 90% proximally stenosed Placement of transvenous pacemaker. In right femoral region Previously on cangrelor drip - transition to Plavix loaded with 600 mg yesterday, currently at [address] surgery consultation - no intervention planned Continue with aspirin 81 mg by mouth daily. On Lipitor 40 mg by mouth daily for dyslipidemia. On lovastatin 10 mg by mouth daily at home. Lipid panel within normal limits. Resp: Acute respiratory failure Allergic rhinitis PRVC16/600/10/22/34 Ventilator bundle Duonebs every 4 hours and as needed Spontaneous breathing trials when indicated a possible extubation trial in a.m. 11/23 Follow-up chest x-ray in a.m. 11/23 On Vicenta/Claritin home. This is been held GI: Transaminitis Elevated CPK Continue tube feeds of Jevity 1.5 goal 55 cc an hour. Protonix for GI prophylaxis Colace/Senokot twice daily for bowel regimen CPK and LFTs are trending downward. Liver ultrasound revealed likely MCCALLUM/hepatitis panel pending : Madsen has been placed for accurate I's and O's in a critically ill patient Endo: Sliding-scale insulin with Accu-Cheks to maintain euglycemia. Low regimen. Every 6 hours. Renal: Creatinine currently within normal limits. Monitor urine output closely. Heme: Normocytic anemia CBC essentially stable Recheck in AM. On heparin drip and cangrelor drip. Cangrelor to be discontinued and Plavix to be loaded with 600 mg 1 today and started 75 mg daily maintenance dose ID: Pyrexia Blood cultures 2, sputum and urine ordered 11/22. Gram-positive cocci in pairs on sputum. Day 1 vancomycin, Zosyn and Zithromax. Infectious disease consultation FEN: Hypopotassemia - resolving Start on scheduled potassium 20 mEq twice a day while on Lasix. Recheck potassium this evening. MSK: Range of motion therapy only at this present time Access - Peripheral IVs. Central line if indicated - Right radial artery line, venous sheath right groin/intraorbital pump/ transvenous pacer day #3 Prophylaxis - GI - Protonix - DVT - heparin drip Critical Care: The total critical care time was 35 minutes. Time to perform other separately billable procedures was not included in the critical care time. Baldev Higgins MD Nov 22, 2016 10:25 Hypopotassemia Start on scheduled potassium 20 mEq once twice a day while on Lasix. Recheck potassium this evening. MSK: Range of motion therapy only at this present time Access - Peripheral IVs. Central line if indicated - Right radial artery line, venous sheath right groin/intraorbital pump/ transvenous pacer day #3 Prophylaxis - GI - Protonix - DVT - heparin drip Critical Care: The total critical care time was 35 minutes. Time to perform other separately billable procedures was not included in the critical care time. Baldev Higgins MD Nov 22, 2016 10:25
[2016-11-22] MEDS ORDERED: POTASSIUM CHLORIDE INJ 30 MEQ in SODIUM CHLORIDE 0.9% INJ 100 ML IV-CENTRAL ONE (11:00)
[2016-11-22] MEDS: SENNOSIDES SYRUP 8.8 MG/5 ML CUP PO/TUBE SCH ×2 (11:28→20:58)
[2016-11-22] MEDS: DOCUSATE SODIUM 100 MG/10 ML UDC PO SCH ×2 (11:28→20:58)
[2016-11-22] MEDS: FERROUS SULFATE 325 MG (65 MG ELEMENTAL IRON) TAB PO SCH (11:28)
[2016-11-22] MEDS: ASPIRIN 81 MG CHEW TAB PO SCH (11:29)
[2016-11-22] MEDS: FUROSEMIDE 40 MG/4 ML VIAL IV PUSH SCH ×2 (11:29→18:17)
[2016-11-22] MEDS: CLOPIDOGREL 75 MG TAB PO SCH (11:30)
[2016-11-22] MEDS: POTASSIUM CL 40 MEQ/30 ML LIQ UDC NG SCH ×2 (11:33→20:58)
[2016-11-22] MEDS: AZITHROMYCIN INJ 500 MG in SODIUM CHLOR 0.9% 250 ML INJ 250 ML IV SCH (11:37)
[2016-11-22] MEDS ORDERED: ACETAMINOPHEN 1000 MG/100 ML VIAL IV ONE (14:15)
--- NOTE | 2016-11-22 14:26 | MB ---
cc: POLLY PALAFOX MD DATE OF CONSULTATION: 11/22/2016. REASON FOR CONSULTATION: Patient with prolonged placement of an intraaortic balloon pump and persistent fever. REQUESTING PHYSICIAN: Dr. Higgins. HISTORY OF PRESENT ILLNESS: This is a 65-year-old white male who was brought to emergency department with chest pain on 11/19/2016. The patient was found to have a myocardial infarction and he was taken for emergent cardiac catheterization. He underwent stenting left anterior descending. At the end of the procedure, the patient suffered cardiac arrest and required intubation and insertion of intraaortic balloon pump. He has been on the balloon pump since then. The patient began having fevers including elevated temperature of 101.1 this morning and prior to that he was running elevated temperatures above 99.9 for approximately 24 hours. He reportedly has foul-smelling drainage coming from his left naris. He is noted to have a history of sinusitis in the past. He is orally intubated and on the ventilator. Several cultures have been taken today. His white blood cell count is within normal range. Urinalysis revealed three white cells and a cath culture is pending. The patient also has elevated liver function tests. Blood culture and sputum culture have been taken. The sputum Gram stain shows moderate gram-positive cocci in pairs. Chest x-ray today shows elevated left hemidiaphragm and atelectasis of the left lung base. The patient is currently on phenylephrine. PAST MEDICAL HISTORY: 1. Hyperlipidemia. 2. Asthma. ALLERGIES: NO KNOWN DRUG ALLERGIES. MEDICATIONS: 1. Vancomycin. 2. Piperacillin /tazobactam. 3. Azithromycin. 4. Potassium. 5. Plavix. 6. Senna. 7. MiraLax. 8. Aspirin. 9. Ferrous sulfate. 10. Phenylephrine. SOCIAL HISTORY: No tobacco, alcohol or illicit drugs. FAMILY HISTORY: Unknown. REVIEW OF SYSTEMS: Unable to obtain. PHYSICAL EXAMINATION: GENERAL: This is a well-developed male who is on the ventilator. He is on an intraaortic balloon pump. VITAL SIGNS: Temperature of 99.7, blood pressure 89/73, heart rate 111. HEAD, EYES, EARS, NOSE, THROAT: Unable to fully assess since the patient is currently on the ventilator. The oropharynx is intubated. NECK: The neck has no swelling or adenopathy. LUNGS: Coarse breath sounds bilateral. HEART: Unable to fully assess because of the intraaortic balloon pump noises. ABDOMEN: Bowel sounds present but diminished, soft, mildly distended. RECTAL: Not performed. EXTREMITIES: No clubbing or cyanosis or edema. SKIN: No rash. The patient has vitiligo skin changes at the lower extremities below the knees. NEUROLOGIC: Unable to assess. LABORATORY DATA WBCs 9.0, platelet count 165,000, hemoglobin 12.5, 75% neutrophils. Creatinine 1.03, BUN 15, estimated GFR 88, AST 278, ALT 108. IMPRESSION: 1. Fever in a patient who is post intubation and post cardiac arrest 2. Post myocardial infarction. 3. Acute respiratory failure. The patient's temperature elevation could be related to pulmonary infection versus urinary infection. He does have drainage coming from the left naris, which indicates possible sinusitis, which may also be an issue but I think it would be unlikely to be cause of his persistent elevation in temperature. RECOMMENDATIONS: 1. Continue vancomycin. 2. Continue piperacillin / tazobactam which will give gram-negative coverage. 3. Continue azithromycin. 4. Monitor blood culture. 5. Monitor sputum culture. 6. Monitor urine culture. 7. Obtain a culture of the naris drainage. 8. Monitor the temperature. Thank you for this consultation. The patient's progress will be monitored and further recommendations will be given on followup. Polly Palafox MD FD/EDWARD /12:37 PM /2:10 PM [facility]
[2016-11-22] MEDS: VANCOMYCIN INJ 1,500 MG in SODIUM CHLORID 0.9% 500 ML INJ 500 ML IV SCH (14:42)
[2016-11-22] MEDS: PIPERACIL-TAZO 4.5 GM PREMIX 100 ML IV SCH ×2 (14:42→20:53)
[2016-11-22] MEDS: PANTOPRAZOLE SODIUM 40 MG VIAL IV PUSH SCH (14:45)
[2016-11-22 19:07] LABS: APTT (PATIENT) 43.2 SEC (24.3-30.1)
[2016-11-22] MEDS: ATORVASTATIN 40 MG TAB PO SCH (20:59)
--- NOTE | 2016-11-22 21:28 | RADRPT ---
EXAM DATE/TIME: 11/22/2016 19:29 [facility] COMPARISON: No previous studies available for comparison. INDICATIONS : Bilateral leg swelling. MEDICAL HISTORY : Myocardial infarction. Asthma. Hyperlipidemia. Chest pain. SURGICAL HISTORY : Intra-Aortic balloon pump. ENCOUNTER: Subsequent ACUITY: 1 day PAIN SCORE: Non-responsive LOCATION: Bilateral legs. TECHNIQUE: Venous ultrasound of the left and right leg was performed from the inguinal ligament to the proximal calf. Real-time, color Doppler and spectral tracing, compression and augmentation techniques were us ed. FINDINGS: RIGHT LEG: Intra-aortic balloon pump present on right with bandage. Right common femoral vein and proximal super ficial femoral vein not well evaluated. There is saphenous vein not well seen. No deep venous thrombo sis in the remainder of the right lower extremity. LEFT LEG: There is normal compressibility of the deep venous system from the inguinal region to the proximal ca lf. No echogenic clot is seen in the lumen of the common femoral, femoral, popliteal, and posterior tibial veins. There is a normal response of the venous system to proximal and distal augmentation an d respiration. CONCLUSION: 1. Negative for deep venous thrombosis. Exam somewhat limited on the right side as above. Dominic Bowen MD on November 22, 2016 at 21:25 Board Certified Radiologist. This report was verified electronically.
[2016-11-23] VITALS (14 sets, daily range): BP systolic 91–128; BP diastolic 50–71; PULSE 92–103; RESP 16; TEMP 99.3–100.6; O2SAT 94–99
[2016-11-23] MEDS: PHENYLEPHRINE INJ 40 MG in DEXTROSE 5% IN WATE 500 ML INJ 496 ML IV SCH ×2 (00:21)
[2016-11-23] MEDS: HEPARIN-D5W INJ 250 ML IV SCH (00:22)
[2016-11-23] MEDS: PIPERACIL-TAZO 4.5 GM PREMIX 100 ML IV SCH ×4 (00:23→18:03)
[2016-11-23] MEDS: VANCOMYCIN INJ 1,500 MG in SODIUM CHLORID 0.9% 500 ML INJ 500 ML IV SCH ×2 (00:24→13:44)
[2016-11-23] MEDS: MIDAZOLAM 100 MG/ML INJ 100 ML IV SCH ×2 (00:25→21:44)
--- NOTE | 2016-11-23 03:53 | RADRPT ---
EXAM DATE/TIME: 11/23/2016 03:04 [facility] COMPARISON: CHEST SINGLE AP, November 22, 2016, 3:11. INDICATIONS : Respiratory failure. MEDICAL HISTORY : Myocardial infarction. Asthma. Hyperlipidemia. SURGICAL HISTORY : Intra-Aortic balloon pump. ENCOUNTER: Subsequent ACUITY: 4 - 6 days PAIN SCORE: Non-responsive. LOCATION: Bilateral chest FINDINGS: Endotracheal tube, NG tube, and intra-aortic balloon pump are identified. There is cardiomegaly and l eft lower lobe consolidation. A small left effusion is suspected. Degenerative changes of the spine. CONCLUSION: Left effusion and basilar airspace disease. Derrick Hagan MD on November 23, 2016 at 3:51 Board Certified Radiologist. This report was verified electronically.
[2016-11-23] MEDS: RESP: ALBUTEROL 2.5 MG/IPRATROPIUM 0.5 MG NEB (SCH) NEB ×4 (04:18→21:13)
[2016-11-23 05:01] LABS: BASOPHIL # 0.1 TH/MM3 (0-0.2); BASOPHIL % 0.7 % (0.0-2.0); EOSINOPHIL # 0.5 TH/MM3 (0-0.4); EOSINOPHIL % 6.1 % (0.0-4.0); HEMATOCRIT 34.3 % (39.0-51.0); HEMO FLAGS DIFF FINAL; LYMPH % 11.7 % (9.0-44.0); MEAN CELL VOLUME 91.5 FL (80.0-100.0); MEAN CORPUSCULAR HEMOGLOBIN 30.3 PG (27.0-34.0); MEAN CORPUSCULAR HGB CONC 33.1 % (32.0-36.0); MONO % 12.9 % (0.0-8.0); NEUT % 68.6 % (16.0-70.0); PLATELET COUNT 151 TH/MM3 (150-450); RED BLOOD COUNT 3.75 MIL/MM3 (4.50-5.90); WHITE BLOOD COUNT 8.7 TH/MM3 (4.0-11.0)
[2016-11-23 05:14] LABS: APTT (PATIENT) 39.9 SEC (24.3-30.1)
[2016-11-23 05:25] LABS: ALT (GPT) 83 U/L (12-78); ANION GAP 8 MEQ/L (5-15); AST (GOT) 180 U/L (15-37); BICARBONATE 27.7 MEQ/L (21.0-32.0); BLOOD UREA NITROGEN 17 MG/DL (7-18); CHLORIDE 102 MEQ/L (98-107); GLOMERULAR FILTRATION RATE 68 ML/MIN (>89); MAGNESIUM 2.1 MG/DL (1.5-2.5); POTASSIUM 4.2 MEQ/L (3.5-5.1); SODIUM (NA) 138 MEQ/L (136-145)
[2016-11-23 05:39] LABS: ALKALINE PHOSPHATASE 70 U/L (45-117); CREATINE KINASE 1773 U/L (39-308); TOTAL BILIRUBIN ADULT 0.7 MG/DL (0.2-1.0)
[2016-11-23] MEDS: INSULIN NovoLIN REGULAR SUPPLEMENTAL SCALE SQ SCH ×4 (06:00→17:59)
[2016-11-23] MEDS: PROPOFOL 1000 MG/100 ML IV SCH (06:07)
[2016-11-23] MEDS: fentaNYL DRIP 250 ML IV SCH ×2 (06:08→21:44)
[2016-11-23 06:09] LABS: CKMB 11.4 NG/ML (0.5-3.6)
--- NOTE | 2016-11-23 07:47 | PD.CARD.PN ---
Subjective Subjective Remarks intubated, sedated, mechanically ventilated (Gera Garvin) Objective Vital Signs / I&O Vital Signs Date Time Temp Pulse Resp B/P Pulse Ox O2 Delivery O2 Flow Rate FiO2 11/23/16 07:14 99 35 11/23/16 06:00 79/55 11/23/16 05:00 78/53 11/23/16 04:28 97 35 11/23/16 04:00 100.6 100 16 128/71 97 11/23/16 04:00 79/53 11/23/16 03:51 98 11/23/16 03:30 35 11/23/16 03:30 95 Mechanical Ventilator 35 11/23/16 03:30 110 11/23/16 03:00 77/53 11/23/16 02:00 74/50 11/23/16 01:08 97 35 11/23/16 01:00 70/58 11/23/16 00:00 95 Mechanical Ventilator 35 11/23/16 00:00 35 11/23/16 00:00 73/52 11/23/16 00:00 100.5 103 16 108/60 95 11/22/16 23:50 104 11/22/16 23:44 110 11/22/16 23:00 73/52 11/22/16 22:42 95 35 11/22/16 22:00 74/52 11/22/16 21:00 82/56 11/22/16 20:04 96 32 11/22/16 20:00 83/56 11/22/16 20:00 110 11/22/16 20:00 93 Mechanical Ventilator 35 11/22/16 20:00 100.8 107 16 100/67 93 Arterial Line 11/22/16 20:00 35 11/22/16 19:00 110 11/22/16 19:00 83/60 11/22/16 18:36 75/98 11/22/16 17:00 76/90 11/22/16 16:00 75/98 11/22/16 15:37 100 35 11/22/16 15:00 106 11/22/16 15:00 35 11/22/16 15:00 78/70 11/22/16 15:00 96 Mechanical Ventilator 35 11/22/16 15:00 99.7 126 16 105/54 99 115/65 11/22/16 15:00 106 11/22/16 14:00 85/94 11/22/16 13:01 94 35 11/22/16 13:00 97/55 11/22/16 12:00 74/65 11/22/16 11:33 99 35 11/22/16 11:00 99.4 117 16 75/64 99 125/79 11/22/16 11:00 78/70 11/22/16 11:00 96 Mechanical Ventilator 35 11/22/16 11:00 106 11/22/16 11:00 117 11/22/16 11:00 40 11/22/16 10:00 89/73 11/22/16 09:00 89/73 11/22/16 08:00 89/73 I/O 11/22/16 11/22/16 11/22/16 11/23/16 11/23/16 11/23/16 07:00 15:00 23:00 07:00 15:00 23:00 Intake Total 1131 ml 1660 ml 2599 ml Output Total 2350 ml 1600 ml 1900 ml Balance -1219 ml 60 ml 699 ml Intake Oral 0 ml IV Total 895 ml 850 ml 1858 ml Tube Feeding 236 ml 660 ml 441 ml Tube Irrigant 150 ml Other 300 ml Output Urine Total 2350 ml 1600 ml 1900 ml Stool Total 0 ml # Bowel Movements 1 0 Physical Exam GENERAL: Well-nourished, well-developed patient in no apparent distress. NECK: No JVD. No carotid bruit. CARDIOVASCULAR: Regular rate and rhythm. S1/S2 no murmur, rub, or gallop. RESPIRATORY: No accessory muscle use. rhonchi to auscultation. Breath sounds equal bilaterally. GASTROINTESTINAL: Abdomen soft, non-tender, nondistended. MUSCULOSKELETAL: Extremities without clubbing, cyanosis, or edema. Laboratory Laboratory Tests Test 11/22/16 11/22/16 11/23/16 07:45 18:00 04:29 Blood Gas Puncture Site ART LINE Blood Gas Patient Temperature 98.6 Blood Gas HCO3 25 mmol/L Blood Gas Base Excess 0.6 mmol/L Blood Gas Oxygen Saturation 96 % Arterial Blood pH 7.42 Arterial Blood Partial 38 mmHg Pressure CO2 Arterial Blood Partial 121 mmHg Pressure O2 Arterial Blood Oxygen Content 17.6 Vol % Arterial Blood 1.3 % Carboxyhemoglobin Arterial Blood Methemoglobin 1.0 % Blood Gas Hemoglobin 12.9 G/DL Oxygen Delivery Device VENTILATOR Blood Gas Ventilator Setting [id number] Blood Gas Inspired Oxygen 40 % Activated Partial 43.2 SEC 39.9 SEC Thromboplast Time White Blood Count 8.7 TH/MM3 Red Blood Count 3.75 MIL/MM3 Hemoglobin 11.4 GM/DL Hematocrit 34.3 % Mean Corpuscular Volume 91.5 FL Mean Corpuscular Hemoglobin 30.3 PG Mean Corpuscular Hemoglobin 33.1 % Concent Red Cell Distribution Width 14.0 % Platelet Count 151 TH/MM3 Mean Platelet Volume 8.5 FL Neutrophils (%) (Auto) 68.6 % Lymphocytes (%) (Auto) 11.7 % Monocytes (%) (Auto) 12.9 % Eosinophils (%) (Auto) 6.1 % Basophils (%) (Auto) 0.7 % Neutrophils # (Auto) 6.0 TH/MM3 Lymphocytes # (Auto) 1.0 TH/MM3 Monocytes # (Auto) 1.1 TH/MM3 Eosinophils # (Auto) 0.5 TH/MM3 Basophils # (Auto) 0.1 TH/MM3 CBC Comment DIFF FINAL Differential Comment Sodium Level 138 MEQ/L Potassium Level 4.2 MEQ/L Chloride Level 102 MEQ/L Carbon Dioxide Level 27.7 MEQ/L Anion Gap 8 MEQ/L Blood Urea Nitrogen 17 MG/DL Creatinine 1.28 MG/DL Estimat Glomerular Filtration 68 ML/MIN Rate Random Glucose 142 MG/DL Calcium Level 7.6 MG/DL Phosphorus Level 3.1 MG/DL Magnesium Level 2.1 MG/DL Total Bilirubin 0.7 MG/DL Aspartate Amino Transf 180 U/L (AST/SGOT) Alanine Aminotransferase 83 U/L (ALT/SGPT) Alkaline Phosphatase 70 U/L Total Creatine Kinase 1773 U/L Creatine Kinase MB 11.4 NG/ML Creatine Kinase MB % 0.6 % Total Protein 6.1 GM/DL Albumin 2.2 GM/DL (Gera Garvin) Assessment and Plan Problem List: (1) STEMI (ST elevation myocardial infarction) Assessment and Plan on balloon pump and 20 mcg norsynephrine. R. radial sheath not working. Continue supportive care. (Gera Garvin) Assessment and Plan STEMI - PCI LAD. cardiogenic shock. aspirin and plavix. If he recovers, would likely consider staged PCI. I am not sure he is going to be a good surgical candidate, but we can reevaluate at a later date. Appreciate CT Surg assistance CHF, acute systolic - + weight gain 100 kg -> 122 kg. Good U.OP. but I/O's. DC heparin gtt. Lovenox SQ BID. hypotension - IABP. wean nette gtt as tolerates. no BB or ACEi. resp failure - 35% FiO2. wean sedation. may try CPAP trials tomorrow. Stimulation may benefit his SBP in order to wean pressors and DC IABP. Hb trending down - minimize blood draws. Fever - ATBx and cultures P. appreciate ID assistance. (Adebayo Alvarez MD) Problem Qualifiers (1) STEMI (ST elevation myocardial infarction): Qualified Code: I21.02 - ST elevation myocardial infarction involving left anterior descending (LAD) coronary artery Gera Garvin Nov 23, 2016 07:47 Adebayo Alvarez MD Nov 23, 2016 13:39
[2016-11-23] MEDS: CHLORHEXIDINE 0.12% (ORAL KIT) 15 ML CUP MT SCH ×2 (08:44→21:42)
[2016-11-23] MEDS: DOCUSATE SODIUM 100 MG/10 ML UDC PO SCH ×2 (08:49→21:43)
[2016-11-23] MEDS: SENNOSIDES SYRUP 8.8 MG/5 ML CUP PO/TUBE SCH ×2 (08:49→21:43)
[2016-11-23] MEDS: CLOPIDOGREL 75 MG TAB PO SCH (08:49)
[2016-11-23] MEDS: POTASSIUM CL 40 MEQ/30 ML LIQ UDC NG SCH ×2 (08:49→21:44)
[2016-11-23] MEDS: ARTIFICIAL TEARS OPTH OINT 3.5 APPLIC/3.5 GM TUBO EACH EYE SCH ×2 (08:50→21:43)
[2016-11-23] MEDS: FERROUS SULFATE 325 MG (65 MG ELEMENTAL IRON) TAB PO SCH (08:50)
[2016-11-23] MEDS: ASPIRIN 81 MG CHEW TAB PO SCH (08:50)
[2016-11-23] MEDS: POLYETHYLENE GLYCOL 17 GM PKG PO/NG SCH ×2 (08:50→21:43)
[2016-11-23] MEDS: FUROSEMIDE 40 MG/4 ML VIAL IV PUSH SCH ×2 (08:50→17:59)
--- NOTE | 2016-11-23 11:22 | HHI.IDPN ---
Note Infectious Disease Note Patient on the vent. Sedated. Becomes agitated when sedation is lifted. On IABP. Temp elevated. Cultures pending. Admitted with myocardial infarction and he was taken for emergent cardiac catheterization and stent. Had cardiac arrest and required intubation and insertion of intraaortic balloon pump. PAST MEDICAL HISTORY: 1. Hyperlipidemia. 2. Asthma. ALLERGIES: NO KNOWN DRUG ALLERGIES. ANTIBIOTICS: 1. Vancomycin. 2. Piperacillin /tazobactam. 3. Azithromycin. SOCIAL HISTORY: No tobacco, alcohol or illicit drugs. 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 OBJECTIVE: Vital Signs Date Time Temp Pulse Resp B/P Pulse Ox O2 Delivery O2 Flow Rate FiO2 11/23/16 10:26 97 35 11/23/16 09:00 78/49 11/23/16 08:00 78/50 11/23/16 07:14 99 35 11/23/16 07:00 92 11/23/16 07:00 100.2 92 16 112/52 98 11/23/16 07:00 98 Mechanical Ventilator 35 11/23/16 07:00 77/52 11/23/16 07:00 35 11/23/16 07:00 92 11/23/16 06:00 79/55 11/23/16 05:00 78/53 11/23/16 04:28 97 35 11/23/16 04:00 100.6 100 16 128/71 97 11/23/16 04:00 79/53 11/23/16 03:51 98 11/23/16 03:30 35 11/23/16 03:30 95 Mechanical Ventilator 35 11/23/16 03:30 110 11/23/16 03:00 77/53 11/23/16 02:00 74/50 11/23/16 01:08 97 35 11/23/16 01:00 70/58 11/23/16 00:00 95 Mechanical Ventilator 35 11/23/16 00:00 35 11/23/16 00:00 73/52 11/23/16 00:00 100.5 103 16 108/60 95 11/22/16 23:50 104 11/22/16 23:44 110 11/22/16 23:00 73/52 11/22/16 22:42 95 35 11/22/16 22:00 74/52 11/22/16 21:00 82/56 11/22/16 20:04 96 32 11/22/16 20:00 83/56 11/22/16 20:00 110 11/22/16 20:00 93 Mechanical Ventilator 35 11/22/16 20:00 100.8 107 16 100/67 93 Arterial Line 11/22/16 20:00 35 11/22/16 19:00 110 11/22/16 19:00 83/60 11/22/16 18:36 75/98 11/22/16 17:00 76/90 11/22/16 16:00 75/98 11/22/16 15:37 100 35 11/22/16 15:00 106 11/22/16 15:00 35 11/22/16 15:00 78/70 11/22/16 15:00 96 Mechanical Ventilator 35 11/22/16 15:00 99.7 126 16 105/54 99 115/65 11/22/16 15:00 106 11/22/16 14:00 85/94 11/22/16 13:01 94 35 11/22/16 13:00 97/55 11/22/16 12:00 74/65 11/22/16 11:33 99 35 11/22/16 11/22/16 11/23/16 15:00 23:00 07:00 Intake Total 1660 ml 2599 ml Output Total 1600 ml 1900 ml Balance 60 ml 699 ml Intake Oral 0 ml IV Total 850 ml 1858 ml Tube Feeding 660 ml 441 ml Tube Irrigant 150 ml Other 300 ml Output Urine Total 1600 ml 1900 ml Stool Total 0 ml # Bowel Movements 0 Laboratory Tests Test 11/22/16 11/23/16 05:22 04:29 White Blood Count 9.0 TH/MM3 8.7 TH/MM3 Red Blood Count 4.05 MIL/MM3 3.75 MIL/MM3 Hemoglobin 12.5 GM/DL 11.4 GM/DL Hematocrit 36.9 % 34.3 % Mean Corpuscular Volume 91.0 FL 91.5 FL Mean Corpuscular Hemoglobin 30.8 PG 30.3 PG Mean Corpuscular Hemoglobin 33.9 % 33.1 % Concent Red Cell Distribution Width 14.4 % 14.0 % Platelet Count 165 TH/MM3 151 TH/MM3 Mean Platelet Volume 8.7 FL 8.5 FL Neutrophils (%) (Auto) 75.2 % 68.6 % Lymphocytes (%) (Auto) 9.8 % 11.7 % Monocytes (%) (Auto) 12.1 % 12.9 % Eosinophils (%) (Auto) 2.3 % 6.1 % Basophils (%) (Auto) 0.6 % 0.7 % Neutrophils # (Auto) 6.8 TH/MM3 6.0 TH/MM3 Lymphocytes # (Auto) 0.9 TH/MM3 1.0 TH/MM3 Monocytes # (Auto) 1.1 TH/MM3 1.1 TH/MM3 Eosinophils # (Auto) 0.2 TH/MM3 0.5 TH/MM3 Basophils # (Auto) 0.1 TH/MM3 0.1 TH/MM3 CBC Comment DIFF FINAL DIFF FINAL Differential Comment Laboratory Tests Test 11/21/16 11/22/16 11/22/16 11/23/16 17:29 05:22 05:56 04:29 Potassium Level 3.8 MEQ/L 3.8 MEQ/L 4.2 MEQ/L Sodium Level 137 MEQ/L 138 MEQ/L Chloride Level 101 MEQ/L 102 MEQ/L Carbon Dioxide Level 26.4 MEQ/L 27.7 MEQ/L Anion Gap 10 MEQ/L 8 MEQ/L Blood Urea Nitrogen 15 MG/DL 17 MG/DL Creatinine 1.03 MG/DL 1.28 MG/DL Estimat Glomerular Filtration 88 ML/MIN 68 ML/MIN Rate Random Glucose 136 MG/DL 142 MG/DL Calcium Level 7.5 MG/DL 7.6 MG/DL Phosphorus Level 3.0 MG/DL 3.1 MG/DL Magnesium Level 2.1 MG/DL 2.1 MG/DL Total Bilirubin 0.6 MG/DL 0.7 MG/DL Aspartate Amino Transf 278 U/L 180 U/L (AST/SGOT) Alanine Aminotransferase 108 U/L 83 U/L (ALT/SGPT) Alkaline Phosphatase 62 U/L 70 U/L Total Protein 6.7 GM/DL 6.1 GM/DL Albumin 2.6 GM/DL 2.2 GM/DL Ammonia 16 MCMOL/L Total Creatine Kinase 1773 U/L Creatine Kinase MB 11.4 NG/ML Creatine Kinase MB % 0.6 % Microbiology Date/Time Procedure Status Source Growth 11/22/16 03:31 Gram Stain - Final Resulted Sputum Endotracheal 11/22/16 03:31 Sputum Culture Resulted Sputum Endotracheal Pending 11/22/16 03:31 Urine Culture Received Urine Catheterized Urine Pending 11/22/16 06:05 Aerobic Blood Culture Received Blood Peripheral Pending 11/22/16 06:05 Anaerobic Blood Culture Received Blood Peripheral Pending 11/22/16 06:05 Aerobic Blood Culture Received Blood Peripheral Pending 11/22/16 06:05 Anaerobic Blood Culture Received Blood Peripheral Pending 11/22/16 20:15 MRSA Surveillance Culture Received Respiratory Pending IMAGING: Chest X-Ray 11/23/16 0600 Signed Impressions: Service Date/Time: Wednesday, November 23, 2016 03:04 - CONCLUSION: Left effusion and basilar airspace disease. Derrick Hagan MD Lower Extremity Ultrasound 11/22/16 0000 Signed Impressions: Service Date/Time: Tuesday, November 22, 2016 19:29 - CONCLUSION: 1. Negative for deep venous thrombosis. Exam somewhat limited on the right side as above. Dominic Bowen MD Liver Ultrasound 11/20/16 0000 Signed Impressions: Service Date/Time: Sunday, November 20, 2016 15:47 - CONCLUSION: The liver is slightly echogenic which maybe due to fatty infiltration and or hepatocellular dysfunction. Kandi Ace MD PHYSICAL EXAMINATION: GENERAL: On the ventilator. He is on an intraaortic balloon pump. HEENT: Unable to fully assess since the patient is currently on the ventilator. The oropharynx is intubated. NECK: The neck has no swelling or adenopathy. LUNGS: Coarse breath sounds. HEART: Difficult to auscultate because of the intraaortic balloon pump noises. ABDOMEN: Bowel sounds present but diminished, soft, mildly distended. EXTREMITIES: No clubbing or cyanosis or edema. SKIN: No rash. The patient has vitiligo skin changes at the lower extremities below the knees. NEUROLOGIC: Unable to assess. IMPRESSION: 1. Fever. Post intubation and post cardiac arrest. 2. Post myocardial infarction. 3. Acute respiratory failure. 4. Sinusitis. The patient's temperature elevation could be related to pulmonary infection versus urinary infection. He has copious drainage coming from the left naris, which indicates sinusitis. RECOMMENDATIONS: 1. Continue vancomycin. 2. Continue piperacillin / tazobactam which will give gram-negative coverage. 3. Continue azithromycin. 4. Add Levaquin additional coverage for potentia pseudomonas. 5. Monitor blood culture. 6. Monitor sputum culture. 7. Monitor urine culture. 8. Monitor nasal culture. 9. Monitor temperature. Kamar Freire MD Nov 23, 2016 11:22
[2016-11-23] MEDS: LEVOFLOXACIN 500 MG PREMIX INJ 100 ML IV SCH (11:38)
[2016-11-23] MEDS: AZITHROMYCIN INJ 500 MG in SODIUM CHLOR 0.9% 250 ML INJ 250 ML IV SCH (11:39)
--- NOTE | 2016-11-23 12:46 | MB ---
cc: ADEBAYO ALVAREZ,DIONE Rendon [facility] DATE OF CONSULTATION: 11/20/2016 DATE OF : 1950 PRIMARY CARE PHYSICIAN Dione Charles MD. RECREATIONAL FACILITIES MOTEL MANAGER: Dr. Adebayo Alvarez. REASON FOR CONSULTATION: 65-year-old male, who apparently was at [facility]. They did an EKG on him which showed a new left bundle branch block with an ST elevation anteriorly he was also having some symptoms of nausea, vomiting, shortness of breath. They faxed the EKG over to Dr. Alvarez who immediately, had EMS initiated, he was sent to the emergency department a STEMI alert protocol was initiated. The patient was taken directly to the laborer cement gun placing where he had a salvage stent to the LAD and thrombectomy to a left anterior descending coronary artery, Towards the end of the procedure the patient went into near cardiac arrest. He was immediately intubated and intra-aortic balloon pump was placed also temporary pacemaker. The temporary pacemaker sat is 60. He is augmenting at a one-to-one. He remained intubated on the ventilator, assist control mode with 40% FIO2 rate of 22. He is not breathing over the vent he is sedated on some propofol when sedation was lightened per the nursing, the patient was very extremely agitated. He moved all extremities but did not follow commands. He currently remains on propofol at 4 mg he is on a Heparin drip. PAST MEDICAL HISTORY: His known past medical history; Asthma Hyperlipidemia. PAST MEDICAL HISTORY: No known past surgical history at this time. ALLERGIES NO KNOWN DRUG ALLERGIES MEDICATIONS home meds include; 1. Atrovent 2. Proventil 3. Lovastatin. 4. Vicenta. FAMILY HISTORY AND SOCIAL HISTORY Noncontributory SOCIAL HISTORY No tobacco, alcohol or drugs. REVIEW OF SYSTEMS Review of systems are unobtainable. PHYSICAL EXAMINATION: VITAL SIGNS: Blood pressure 88/50, he is augmenting about 90, heart rate is in the 80s O2 sat 97 on 40% low grade temperature of 99.2. HEAD, EARS, EYES, NOSE, AND THROAT: The patient is sedated on propofol his pupils are approximately 2 mm sluggish equal, orally intubated in the ET tube is approximately 4 cm above the ba. NECK: Supple. No JVD. HEART: Heart sounds S1-S2 regular rate and rhythm. No audible rubs or gallops. LUNGS: A Few coarse breath sounds otherwise clear to auscultation. ABDOMEN: Abdomen is obese, soft, hypoactive bowel sounds nasogastric tube on lower intermittent suction. He has an intraaortic balloon pump into the right groin. With a venous C sheath, also he has a arterial sheath in the right wrist which is being transduced. His Madsen catheter and he has got approximately three peripheral lines in place. SKIN: He has got vitiligo upper chest, lower extremities I am unable to obtain pulses in his lower extremities even with Doppler at this time. Currently he is also still on some pressors to include Osman-Synephrine at 60 mics. LABORATORY FINDINGS: Current lab work shows hemoglobin of 13, hematocrit 39, white cell count 10, platelet count 264, sodium 137, potassium 4.1, BUN 14, creatinine 0.97, troponin of 17. He also has a creatine kinase 8000, triglycerides 130, cholesterol 161, HDL 57, glucose 132. INR 1.0. Chest x-ray Shows intra-aortic balloon pump fifth intercostal space left sternal border and no pneumothorax. No pleural effusion. EKG showed sinus tachycardia with ST elevation inferior lateral leads, left bundle-branch block. IMPRESSION This is an acute ST-segment MO status post salvage stent to the LAD post the a cardiac arrest, intubated with an intra-aortic balloon pump at a one-to-one on IV pressors. He also remains on and heparin. He did not receive Plavix. The patient is critically ill at this time, will need to recover from his acute respiratory failure, cardiogenic shock. He will be evaluated for possible surgery depending upon recovery and the patient waking up and neurologically being intact for surgery next week per Dr. Radha Culp further planning. MD Dorota Fenton, INTELLECTUAL PROPERTY COUNSEL-C BREANNE/river /9:58 AM /12:45 PM
[2016-11-23] MEDS: PANTOPRAZOLE SODIUM 40 MG VIAL IV PUSH SCH (13:15)
--- NOTE | 2016-11-23 13:31 | PD.CAR.PN ---
CVT Progress Note Subjective/Hospital Course: 65-year-old gentleman has history of hyperlipidemia and asthma, he awoke, had some intermittent chest pain symptoms, began to become progressively worse over the course of the early afternoon. He came over to [facility], where an EKG showed new left bundle with ST-elevation anterolaterally. He was taken emergently to cardiac catheterization lab where his LAD was stented. At the end of the procedure patients suffered near cardiac arrest requiring intubation intra-aortic balloon pump placement and IV vasopressors. Critical care medicine following to manage ventilatory dependent respiratory failure and assist with medical management. 11/23 pt now having fevers / ellsworth cultured, on antibiotics, thick beige secretions from ET tube on tube feeds, no residual remains on sedation, when lightened ,pt very agitated and not following commands low dose pressors while on sedation IABP 1:1 augmenting 90/ on Heparin gtt NSR remains critically ill 11/22: Tmax 101.1. Currently 99.7. Currently intubated. Osman-Synephrine crease to 15 g per minute. Tube feeds at goal. Remains on intra-aortic balloon pump at 1: Objective: GENERAL: / sedated on vent Rass -2 SKIN: Warm and dry./ vitiglio on skin HEAD: Normocephalic./ copius secretions from right nares EYES: No scleral icterus. No injection or drainage. NECK: Supple, trachea midline. No JVD or lymphadenopathy. CARDIOVASCULAR: Regular rate and rhythm without murmurs, gallops, or rubs. IABP right groin / 1:1 augmentation , right groin site without hematoma or drainage, doppler pulses only RESPIRATORY: coarse bilateral breath sounds, PPRVC/AC mode 35% Breath sounds equal bilaterally. No accessory muscle use. GASTROINTESTINAL: Abdomen soft, non-tender,distended. , hypoactive bowel sounds MUSCULOSKELETAL: No cyanosis, or edema. BACK: Nontender without obvious deformity. No CVA tenderness. Vital Signs Date Time Temp Pulse Resp B/P Pulse Ox O2 Delivery O2 Flow Rate FiO2 11/23/16 12:00 82/53 11/23/16 11:00 35 11/23/16 11:00 100.6 93 16 91/50 97 11/23/16 11:00 93 11/23/16 11:00 97 Mechanical Ventilator 35 11/23/16 11:00 93 11/23/16 11:00 75/47 11/23/16 10:26 97 35 11/23/16 10:00 73/48 11/23/16 09:00 78/49 11/23/16 08:00 78/50 11/23/16 07:14 99 35 11/23/16 07:00 92 11/23/16 07:00 100.2 92 16 112/52 98 11/23/16 07:00 98 Mechanical Ventilator 35 11/23/16 07:00 77/52 11/23/16 07:00 35 11/23/16 07:00 92 11/23/16 06:00 79/55 11/23/16 05:00 78/53 11/23/16 04:28 97 35 11/23/16 04:00 100.6 100 16 128/71 97 11/23/16 04:00 79/53 11/23/16 03:51 98 11/23/16 03:30 35 11/23/16 03:30 95 Mechanical Ventilator 35 11/23/16 03:30 110 11/23/16 03:00 77/53 11/23/16 02:00 74/50 11/23/16 01:08 97 35 11/23/16 01:00 70/58 11/23/16 00:00 95 Mechanical Ventilator 35 11/23/16 00:00 35 11/23/16 00:00 73/52 11/23/16 00:00 100.5 103 16 108/60 95 11/22/16 23:50 104 11/22/16 23:44 110 11/22/16 23:00 73/52 11/22/16 22:42 95 35 11/22/16 22:00 74/52 11/22/16 21:00 82/56 11/22/16 20:04 96 32 11/22/16 20:00 83/56 11/22/16 20:00 110 11/22/16 20:00 93 Mechanical Ventilator 35 11/22/16 20:00 100.8 107 16 100/67 93 Arterial Line 11/22/16 20:00 35 11/22/16 19:00 110 11/22/16 19:00 83/60 11/22/16 18:36 75/98 11/22/16 17:00 76/90 11/22/16 16:00 75/98 11/22/16 15:37 100 35 11/22/16 15:00 106 11/22/16 15:00 35 11/22/16 15:00 78/70 11/22/16 15:00 96 Mechanical Ventilator 35 11/22/16 15:00 99.7 126 16 105/54 99 115/65 11/22/16 15:00 106 11/22/16 14:00 85/94 Labs: Laboratory Tests Test 11/23/16 04:29 White Blood Count 8.7 TH/MM3 (4.0-11.0) Red Blood Count 3.75 MIL/MM3 (4.50-5.90) Hemoglobin 11.4 GM/DL (13.0-17.0) Hematocrit 34.3 % (39.0-51.0) Mean Corpuscular Volume 91.5 FL (80.0-100.0) Mean Corpuscular Hemoglobin 30.3 PG (27.0-34.0) Mean Corpuscular Hemoglobin 33.1 % Concent (32.0-36.0) Red Cell Distribution Width 14.0 % (11.6-17.2) Platelet Count 151 TH/MM3 (150-450) Mean Platelet Volume 8.5 FL (7.0-11.0) Neutrophils (%) (Auto) 68.6 % (16.0-70.0) Lymphocytes (%) (Auto) 11.7 % (9.0-44.0) Monocytes (%) (Auto) 12.9 % (0.0-8.0) Eosinophils (%) (Auto) 6.1 % (0.0-4.0) Basophils (%) (Auto) 0.7 % (0.0-2.0) Neutrophils # (Auto) 6.0 TH/MM3 (1.8-7.7) Lymphocytes # (Auto) 1.0 TH/MM3 (1.0-4.8) Monocytes # (Auto) 1.1 TH/MM3 (0-0.9) Eosinophils # (Auto) 0.5 TH/MM3 (0-0.4) Basophils # (Auto) 0.1 TH/MM3 (0-0.2) CBC Comment DIFF FINAL Differential Comment Activated Partial 39.9 SEC Thromboplast Time (24.3-30.1) Sodium Level 138 MEQ/L (136-145) Potassium Level 4.2 MEQ/L (3.5-5.1) Chloride Level 102 MEQ/L (98-107) Carbon Dioxide Level 27.7 MEQ/L (21.0-32.0) Anion Gap 8 MEQ/L (5-15) Blood Urea Nitrogen 17 MG/DL (7-18) Creatinine 1.28 MG/DL (0.60-1.30) Estimat Glomerular Filtration 68 ML/MIN (>89) Rate Random Glucose 142 MG/DL (74-106) Calcium Level 7.6 MG/DL (8.5-10.1) Phosphorus Level 3.1 MG/DL (2.5-4.9) Magnesium Level 2.1 MG/DL (1.5-2.5) Total Bilirubin 0.7 MG/DL (0.2-1.0) Aspartate Amino Transf 180 U/L (15-37) (AST/SGOT) Alanine Aminotransferase 83 U/L (12-78) (ALT/SGPT) Alkaline Phosphatase 70 U/L (45-117) Total Creatine Kinase 1773 U/L (39-308) Creatine Kinase MB 11.4 NG/ML (0.5-3.6) Creatine Kinase MB % 0.6 % (0.0-4.0) Total Protein 6.1 GM/DL (6.4-8.2) Albumin 2.2 GM/DL (3.4-5.0) Result Diagram: 11/23/1642811/23/16428 (1) STEMI (ST elevation myocardial infarction) (2) Cardiogenic shock Plan: weaning off pressors IABP 1:1 augmentation (3) Dyslipidemia (4) ventilatory dependent resp failure Plan: on PRVC/ AC mode 35% fi02 daily sedation vacation as tolerated vent management per CCM (5) Elevated LFTs Plan: hep panel pending (6) Sinusitis Plan: on ABX per ID cultures pending Problem Qualifiers (1) STEMI (ST elevation myocardial infarction): Qualified Code: I21.02 - ST elevation myocardial infarction involving left anterior descending (LAD) coronary artery Estella Sarmiento Nov 23, 2016 13:31
[2016-11-23 13:41] LABS: APTT (PATIENT) 38.7 SEC (24.3-30.1)
[2016-11-23] MEDS: ENOXAPARIN SODIUM 100 MG/ML SYRINGE SQ SCH (14:14)
--- NOTE | 2016-11-23 16:31 | HHI.CCPN ---
Subjective Remarks/Hospital Course 65-year-old gentleman has history of hyperlipidemia and asthma, he awoke, had some intermittent chest pain symptoms, began to become progressively worse over the course of the early afternoon. He came over to [facility], where an EKG showed new left bundle with ST-elevation anterolaterally. He was taken emergently to cardiac catheterization lab where his LAD was stented. At the end of the procedure patients suffered near cardiac arrest requiring intubation intra-aortic balloon pump placement and IV vasopressors. Critical care medicine was consulted to manage ventilatory dependent respiratory failure and assist with medical management. 2/3: Currently sedated on propofol drip. Remains on Osman-Synephrine at 90 g a minute. Tube feeds have not been initiated. No bowel movement. Remains on intra-aortic balloon pump 1:1 2/: Currently sedated on propofol infusion, Versed and fentanyl drips. Remains on Osman-Synephrine at 65 g a minute. Tube feeds currently at 30 cc an hour. No bowel movement. Remains on intra-aortic balloon pump at 1:1 ratio. Subjective 11/22: Tmax 101.1. Currently 99.7. Currently intubated. Osman-Synephrine crease to 15 g per minute. Tube feeds at goal. Remains on intra-aortic balloon pump at 1:1 ratio. 2/6: Remains sedated, orally intubated on mechanical ventilation. Intra-aortic balloon pump remains in place. Transvenous pacer remains in place however has not required pacing for the last few days. Objective Vital Signs Date Time Temp Pulse Resp B/P Pulse Ox O2 Delivery O2 Flow Rate FiO2 11/23/16 15:00 35 11/23/16 15:00 95 Mechanical Ventilator 11/23/16 15:00 99.6 98 16 101/57 11/19/16 18:07 2.00 Intake and Output 11/22/16 11/22/16 11/23/16 08:00 16:00 00:00 Intake Total 1131 ml 1660 ml Output Total 2350 ml 1600 ml Balance -1219 ml 60 ml Result Diagram: 11/23/16 0429 11/23/16 0429 Imaging Last Impressions Chest X-Ray 11/22/16 0600 Signed Impressions: Service Date/Time: Tuesday, November 22, 2016 03:11 - CONCLUSION: Stable chest x-ray with elevated left hemidiaphragm and atelectasis at the left lung base. Remi Altman MD Liver Ultrasound 11/20/16 0000 Signed Impressions: Service Date/Time: Sunday, November 20, 2016 15:47 - CONCLUSION: The liver is slightly echogenic which maybe due to fatty infiltration and or hepatocellular dysfunction. Knadi Ace MD Objective Remarks GENERAL: 65-year-old Kim male, critically ill currently resting in bed in no acute distress SKIN: Warm and dry. No rash HEAD: Normocephalic. EYES: Positive chemosis. PERRL NECK: Supple, trachea midline. No JVD or lymphadenopathy. CARDIOVASCULAR: Regular rate and rhythm. S1, S2 no S4. IABP 1:1 augmentation RESPIRATORY: Breath sounds equal bilaterally. Distant. GASTROINTESTINAL: Abdomen soft, non-tender, nondistended. Hypoactive bowel sounds. MUSCULOSKELETAL: No significant peripheral edema. Right groin is clean dry and intact with balloon pump/venous sheath and transvenous pacemaker BACK: Nontender without obvious deformity. No CVA tenderness. Procedures Cardiac catheterization - BMS LAD TVP A/P Problem List: (1) STEMI (ST elevation myocardial infarction) ICD Code: I21.3 Status: Acute (2) Acute respiratory failure ICD Code: J96.00 Status: Acute (3) Cardiogenic shock ICD Code: R57.0 Status: Acute (4) Dyslipidemia ICD Code: E78.5 Status: Acute (5) Obesity hypoventilation syndrome ICD Code: E66.2 Status: Acute Assessment and Plan Neuro/Psych: Patient is currently on Versed/fentanyl drip at 150 g an hour to wean propofol Goal of RASS -2 Daily sedation vacation Acetaminophen for fever CV: Acute systolic heart failure Cardiogenic shock Dyslipidemia IABP 1:1 Dr. Minor/cardiology following On Osman-Synephrine 10 g per minute. Lasix 40 mg IV twice a day for systolic heart failure. echoCardiogram- EF 20-25%. Distal anterior hypokinesis. Trace TR. Small pericardial effusion Cardiac catheterization - LAD 100% proximally status post BMS, ramus intermedius 90%. Mid circumflex 90%. OM1 90%. RCA 90% proximally stenosed Placement of transvenous pacemaker. In right femoral region Previously on cangrelor drip - transition to Plavix loaded with 600 mg yesterday, currently at [address] surgery consultation - no intervention planned Continue with aspirin 81 mg by mouth daily. On Lipitor 40 mg by mouth daily for dyslipidemia. On lovastatin 10 mg by mouth daily at home. Lipid panel within normal limits. Resp: Acute respiratory failure Allergic rhinitis PRVC16/600/10/22/34 Ventilator bundle Duonebs every 4 hours and as needed Spontaneous breathing trials when indicated a possible extubation trial in a.m. 11/23 Follow-up chest x-ray in a.m. 11/23 On Vicenta/Claritin home. This is been held GI: Transaminitis Elevated CPK Continue tube feeds of Jevity 1.5 goal 55 cc an hour. Protonix for GI prophylaxis Colace/Senokot twice daily for bowel regimen CPK and LFTs are trending downward. Liver ultrasound revealed likely MCCALLUM/hepatitis panel pending : Madsen has been placed for accurate I's and O's in a critically ill patient Endo: Sliding-scale insulin with Accu-Cheks to maintain euglycemia. Low regimen. Every 6 hours. Renal: Creatinine currently within normal limits. Monitor urine output closely. Heme: Normocytic anemia CBC essentially stable Recheck in AM. Heparin drip and cangrelor drip off. Plavix loading 600 mg 1 on 11/22 and started 75 mg daily maintenance dose ID: Pyrexia Blood cultures 2, sputum and urine ordered 11/22. Gram-positive cocci in pairs on sputum. Day 1 vancomycin, Zosyn and Zithromax. Infectious disease consultation FEN: Hypopotassemia - resolving Start on scheduled potassium 20 mEq twice a day while on Lasix. MSK: Range of motion therapy only at this present time Access - Peripheral IVs. Central line if indicated - Right radial artery line, venous sheath right groin/intraorbital pump/ transvenous pacer day #4 Prophylaxis - GI - Protonix - DVT - heparin drip Critical Care: The total critical care time was 35 minutes. Time to perform other separately billable procedures was not included in the critical care time. Problem Qualifiers (1) STEMI (ST elevation myocardial infarction): Qualified Code: I21.02 - ST elevation myocardial infarction involving left anterior descending (LAD) coronary artery Anibal Finch MD Nov 23, 2016 16:31
[2016-11-23] MEDS: ATORVASTATIN 40 MG TAB PO SCH (21:43)
[2016-11-24] VITALS (14 sets, daily range): BP systolic 100–116; BP diastolic 56–89; PULSE 86–101; RESP 16; TEMP 98.5–99.9; O2SAT 92–99
[2016-11-24] MEDS ORDERED: PHARMACY ORDERED LAB XX ONE (00:45)
[2016-11-24] MEDS: VANCOMYCIN INJ 1,500 MG in SODIUM CHLORID 0.9% 500 ML INJ 500 ML IV SCH ×2 (01:44→14:40)
[2016-11-24] MEDS: PIPERACIL-TAZO 4.5 GM PREMIX 100 ML IV SCH ×4 (01:45→18:42)
[2016-11-24] MEDS: ENOXAPARIN SODIUM 100 MG/ML SYRINGE SQ SCH ×2 (02:58→15:46)
[2016-11-24] MEDS: RESP: ALBUTEROL 2.5 MG/IPRATROPIUM 0.5 MG NEB (SCH) NEB ×4 (03:29→21:35)
[2016-11-24 05:37] LABS: AUTOMATED NEUTROPHIL # 6.9 TH/MM3 (1.8-7.7); BASOPHIL % 0.4 % (0.0-2.0); EOSINOPHIL # 0.7 TH/MM3 (0-0.4); EOSINOPHIL % 6.9 % (0.0-4.0); HEMATOCRIT 34.1 % (39.0-51.0); HEMO FLAGS DIFF FINAL; LYMPH % 12.7 % (9.0-44.0); LYMPHOCYTE # 1.3 TH/MM3 (1.0-4.8); MEAN CELL VOLUME 90.7 FL (80.0-100.0); MEAN CORPUSCULAR HGB CONC 34.1 % (32.0-36.0); MONO % 13.7 % (0.0-8.0); NEUT % 66.3 % (16.0-70.0); PLATELET COUNT 195 TH/MM3 (150-450); RED BLOOD COUNT 3.76 MIL/MM3 (4.50-5.90); RED CELL DISTRIBUTION WIDTH 14.1 % (11.6-17.2); WHITE BLOOD COUNT 10.4 TH/MM3 (4.0-11.0)
[2016-11-24] MEDS: INSULIN NovoLIN REGULAR SUPPLEMENTAL SCALE SQ SCH ×4 (06:00→18:14)
[2016-11-24 06:21] LABS: ALKALINE PHOSPHATASE 100 U/L (45-117); ALT (GPT) 94 U/L (12-78); ANION GAP 7 MEQ/L (5-15); AST (GOT) 142 U/L (15-37); BICARBONATE 26.7 MEQ/L (21.0-32.0); BLOOD UREA NITROGEN 21 MG/DL (7-18); CHLORIDE 101 MEQ/L (98-107); GLOMERULAR FILTRATION RATE 70 ML/MIN (>89); POTASSIUM 4.7 MEQ/L (3.5-5.1); SODIUM (NA) 135 MEQ/L (136-145); TOTAL BILIRUBIN ADULT 0.8 MG/DL (0.2-1.0)
--- NOTE | 2016-11-24 08:23 | PD.CARD.PN ---
Subjective Subjective Remarks intubated, sedated, mechanically ventilated (Gera Garvin) Objective Vital Signs / I&O Vital Signs Date Time Temp Pulse Resp B/P Pulse Ox O2 Delivery O2 Flow Rate FiO2 11/24/16 08:00 92/55 11/24/16 07:41 98 45 11/24/16 07:00 98 Mechanical Ventilator 50 11/24/16 07:00 99.1 101 16 106/59 98 11/24/16 07:00 101 11/24/16 07:00 92/54 11/24/16 07:00 50 11/24/16 07:00 101 11/24/16 06:00 98/58 11/24/16 05:00 108/76 11/24/16 04:55 92 50 11/24/16 04:00 77/49 11/24/16 03:29 94 35 11/24/16 03:00 91 11/24/16 03:00 94 Mechanical Ventilator 35 11/24/16 03:00 81/53 11/24/16 03:00 99.7 86 16 109/89 94 11/24/16 03:00 35 11/24/16 03:00 86 11/24/16 00:10 95 35 11/24/16 00:00 91 11/24/16 00:00 94 Mechanical Ventilator 35 11/24/16 00:00 99.0 91 16 112/57 94 11/24/16 00:00 35 11/23/16 23:00 97 11/23/16 21:13 94 35 11/23/16 20:00 100 11/23/16 20:00 100 11/23/16 20:00 99.3 100 16 102/54 95 Arterial Line 11/23/16 20:00 95 Mechanical Ventilator 35 11/23/16 20:00 35 11/23/16 20:00 83/54 11/23/16 18:00 90/63 11/23/16 17:00 86/62 11/23/16 16:00 93/53 11/23/16 15:54 95 35 11/23/16 15:00 35 11/23/16 15:00 95 Mechanical Ventilator 35 11/23/16 15:00 99.6 98 16 101/57 95 11/23/16 15:00 100 11/23/16 15:00 101 11/23/16 15:00 85/53 11/23/16 14:00 77/50 11/23/16 13:00 99/46 11/23/16 12:00 82/53 11/23/16 11:00 35 11/23/16 11:00 100.6 93 16 91/50 97 11/23/16 11:00 93 11/23/16 11:00 97 Mechanical Ventilator 35 11/23/16 11:00 93 11/23/16 11:00 75/47 11/23/16 10:26 97 35 11/23/16 10:00 73/48 11/23/16 09:00 78/49 I/O 11/23/16 11/23/16 11/23/16 11/24/16 11/24/16 11/24/16 07:00 15:00 23:00 07:00 15:00 23:00 Intake Total 2599 ml 2362 ml 1634 ml Output Total 1900 ml 2175.0 ml 1800 ml Balance 699 ml 187.0 ml -166 ml Intake Oral 0 ml 0 ml IV Total 1858 ml 1712 ml 924 ml Tube Feeding 441 ml 620 ml 650 ml Tube Irrigant 30 ml 60 ml Other 300 ml Output Urine Total 1900 ml 2125 ml 1800 ml Tube Feeding Residual Discard 50.0 ml # Bowel Movements 0 0 0 Physical Exam GENERAL: intubated NECK: No JVD. No carotid bruit. CARDIOVASCULAR: Regular rate and rhythm. S1/S2 no murmur, rub, or gallop. RESPIRATORY: No accessory muscle use. rhonchi to auscultation. Breath sounds equal bilaterally. GASTROINTESTINAL: Abdomen soft, non-tender, nondistended. MUSCULOSKELETAL: edema. Laboratory Laboratory Tests Test 11/23/16 11/24/16 11/24/16 13:06 00:35 05:03 Activated Partial 38.7 SEC Thromboplast Time Vancomycin Level Trough 15.0 MCG/ML White Blood Count 10.4 TH/MM3 Red Blood Count 3.76 MIL/MM3 Hemoglobin 11.6 GM/DL Hematocrit 34.1 % Mean Corpuscular Volume 90.7 FL Mean Corpuscular Hemoglobin 31.0 PG Mean Corpuscular Hemoglobin 34.1 % Concent Red Cell Distribution Width 14.1 % Platelet Count 195 TH/MM3 Mean Platelet Volume 8.6 FL Neutrophils (%) (Auto) 66.3 % Lymphocytes (%) (Auto) 12.7 % Monocytes (%) (Auto) 13.7 % Eosinophils (%) (Auto) 6.9 % Basophils (%) (Auto) 0.4 % Neutrophils # (Auto) 6.9 TH/MM3 Lymphocytes # (Auto) 1.3 TH/MM3 Monocytes # (Auto) 1.4 TH/MM3 Eosinophils # (Auto) 0.7 TH/MM3 Basophils # (Auto) 0.0 TH/MM3 CBC Comment DIFF FINAL Differential Comment Sodium Level 135 MEQ/L Potassium Level 4.7 MEQ/L Chloride Level 101 MEQ/L Carbon Dioxide Level 26.7 MEQ/L Anion Gap 7 MEQ/L Blood Urea Nitrogen 21 MG/DL Creatinine 1.25 MG/DL Estimat Glomerular Filtration 70 ML/MIN Rate Random Glucose 120 MG/DL Calcium Level 8.4 MG/DL Total Bilirubin 0.8 MG/DL Aspartate Amino Transf 142 U/L (AST/SGOT) Alanine Aminotransferase 94 U/L (ALT/SGPT) Alkaline Phosphatase 100 U/L Total Protein 7.3 GM/DL Albumin 2.2 GM/DL (Gera Garvin) Assessment and Plan Problem List: (1) STEMI (ST elevation myocardial infarction) (2) Cardiogenic shock (3) Dyslipidemia (4) ventilatory dependent resp failure (5) Elevated LFTs (6) Sinusitis Assessment and Plan STEMI - PCI LAD. cardiogenic shock. aspirin and plavix. If he recovers, would likely consider staged PCI. I am not sure he is going to be a good surgical candidate, but we can reevaluate at a later date. Appreciate CT Surg assistance CHF, acute systolic - + weight gain 100 kg -> 122 kg. Good U.OP. but I/O's. DC heparin gtt. Lovenox SQ BID. hypotension - IABP. wean nette gtt as tolerates. no BB or ACEi. R. radial sheath d/c'd (Gera Garvin) Assessment and Plan STEMI - CK trending down. wean nette gtt. continue AIBP. asa plavix. After recovery, will likely needed staged PCI RCA & LCx. CHF - try to minimize fluids. increase lasix 60 BID. I/O even. Cr stable. DC'd temp pacer wean sedation. extubation trials. case discussed in detail with Dr. Finch. cont lovenox BID (Adebayo Alvarez MD) Problem Qualifiers (1) STEMI (ST elevation myocardial infarction): Qualified Code: I21.02 - ST elevation myocardial infarction involving left anterior descending (LAD) coronary artery Gera Garvin Nov 24, 2016 08:23 Adebayo Alvarez MD Nov 24, 2016 10:16
[2016-11-24] MEDS: CHLORHEXIDINE 0.12% (ORAL KIT) 15 ML CUP MT SCH ×2 (08:39→22:07)
--- NOTE | 2016-11-24 08:48 | PD.CAR.PN ---
CVT Progress Note Subjective/Hospital Course: 65-year-old gentleman has history of hyperlipidemia and asthma, he awoke, had some intermittent chest pain symptoms, began to become progressively worse over the course of the early afternoon. He came over to [facility], where an EKG showed new left bundle with ST-elevation anterolaterally. He was taken emergently to cardiac catheterization lab where his LAD was stented. At the end of the procedure patients suffered near cardiac arrest requiring intubation intra-aortic balloon pump placement and IV vasopressors. Critical care medicine following to manage ventilatory dependent respiratory failure and assist with medical management. 11/23 pt now having fevers / ellsworth cultured, on antibiotics, thick beige secretions from ET tube on tube feeds, no residual remains on sedation, when lightened ,pt very agitated and not following commands low dose pressors while on sedation IABP 1:1 augmenting 90/ on Heparin gtt NSR remains critically ill 11/22: Tmax 101.1. Currently 99.7. Currently intubated. Osman-Synephrine crease to 15 g per minute. Tube feeds at goal. Remains on intra-aortic balloon pump at 1:1 11/23 still on some sedation , slowly weaning , when lightened, pt opens eyes, but not following cardiology progress note noted, may be candidate for stage PCI when he wakes up , off heparin gtt on lovenox, IABP 1:1 , cardiology eval for possible removal , still on low dose Osman gtt Objective: GENERAL: SKIN: Warm and dry. HEAD: Normocephalic. EYES: No scleral icterus. No injection or drainage. / 2mm equal and sluggish NECK: Supple, trachea midline. No JVD or lymphadenopathy. CARDIOVASCULAR: Regular rate and rhythm without murmurs, gallops, or rubs IABP 1:1 Doppler distal pulses , temp pacer right groin / RESPIRATORY: coarse bilateral Breath sounds equal bilaterally. No accessory muscle use. vent GASTROINTESTINAL: Abdomen soft, non-tender, nondistended. MUSCULOSKELETAL: No cyanosis, or edema. BACK: Nontender without obvious deformity. No CVA tenderness. Vital Signs Date Time Temp Pulse Resp B/P Pulse Ox O2 Delivery O2 Flow Rate FiO2 11/24/16 08:00 92/55 11/24/16 07:41 98 45 11/24/16 07:00 98 Mechanical Ventilator 50 11/24/16 07:00 99.1 101 16 106/59 98 11/24/16 07:00 101 11/24/16 07:00 92/54 11/24/16 07:00 50 11/24/16 07:00 101 11/24/16 06:00 98/58 11/24/16 05:00 108/76 11/24/16 04:55 92 50 11/24/16 04:00 77/49 11/24/16 03:29 94 35 11/24/16 03:00 91 11/24/16 03:00 94 Mechanical Ventilator 35 11/24/16 03:00 81/53 11/24/16 03:00 99.7 86 16 109/89 94 11/24/16 03:00 35 11/24/16 03:00 86 11/24/16 00:10 95 35 11/24/16 00:00 91 11/24/16 00:00 94 Mechanical Ventilator 35 11/24/16 00:00 99.0 91 16 112/57 94 11/24/16 00:00 35 11/23/16 23:00 97 11/23/16 21:13 94 35 11/23/16 20:00 100 11/23/16 20:00 100 11/23/16 20:00 99.3 100 16 102/54 95 Arterial Line 11/23/16 20:00 95 Mechanical Ventilator 35 11/23/16 20:00 35 11/23/16 20:00 83/54 11/23/16 18:00 90/63 11/23/16 17:00 86/62 11/23/16 16:00 93/53 11/23/16 15:54 95 35 11/23/16 15:00 35 11/23/16 15:00 95 Mechanical Ventilator 35 11/23/16 15:00 99.6 98 16 101/57 95 11/23/16 15:00 100 11/23/16 15:00 101 11/23/16 15:00 85/53 11/23/16 14:00 77/50 11/23/16 13:00 99/46 11/23/16 12:00 82/53 11/23/16 11:00 35 11/23/16 11:00 100.6 93 16 91/50 97 11/23/16 11:00 93 2/6/17 11:00 97 Mechanical Ventilator 35 11/23/16 11:00 93 11/23/16 11:00 75/47 11/23/16 10:26 97 35 11/23/16 10:00 73/48 11/23/16 09:00 78/49 Labs: Laboratory Tests Test 11/24/16 11/24/16 00:35 05:03 Vancomycin Level Trough 15.0 MCG/ML (5.0-10.0) White Blood Count 10.4 TH/MM3 (4.0-11.0) Red Blood Count 3.76 MIL/MM3 (4.50-5.90) Hemoglobin 11.6 GM/DL (13.0-17.0) Hematocrit 34.1 % (39.0-51.0) Mean Corpuscular Volume 90.7 FL (80.0-100.0) Mean Corpuscular Hemoglobin 31.0 PG (27.0-34.0) Mean Corpuscular Hemoglobin 34.1 % Concent (32.0-36.0) Red Cell Distribution Width 14.1 % (11.6-17.2) Platelet Count 195 TH/MM3 (150-450) Mean Platelet Volume 8.6 FL (7.0-11.0) Neutrophils (%) (Auto) 66.3 % (16.0-70.0) Lymphocytes (%) (Auto) 12.7 % (9.0-44.0) Monocytes (%) (Auto) 13.7 % (0.0-8.0) Eosinophils (%) (Auto) 6.9 % (0.0-4.0) Basophils (%) (Auto) 0.4 % (0.0-2.0) Neutrophils # (Auto) 6.9 TH/MM3 (1.8-7.7) Lymphocytes # (Auto) 1.3 TH/MM3 (1.0-4.8) Monocytes # (Auto) 1.4 TH/MM3 (0-0.9) Eosinophils # (Auto) 0.7 TH/MM3 (0-0.4) Basophils # (Auto) 0.0 TH/MM3 (0-0.2) CBC Comment DIFF FINAL Differential Comment Sodium Level 135 MEQ/L (136-145) Potassium Level 4.7 MEQ/L (3.5-5.1) Chloride Level 101 MEQ/L (98-107) Carbon Dioxide Level 26.7 MEQ/L (21.0-32.0) Anion Gap 7 MEQ/L (5-15) Blood Urea Nitrogen 21 MG/DL (7-18) Creatinine 1.25 MG/DL (0.60-1.30) Estimat Glomerular Filtration 70 ML/MIN (>89) Rate Random Glucose 120 MG/DL (74-106) Calcium Level 8.4 MG/DL (8.5-10.1) Total Bilirubin 0.8 MG/DL (0.2-1.0) Aspartate Amino Transf 142 U/L (15-37) (AST/SGOT) Alanine Aminotransferase 94 U/L (12-78) (ALT/SGPT) Alkaline Phosphatase 100 U/L (45-117) Total Protein 7.3 GM/DL (6.4-8.2) Albumin 2.2 GM/DL (3.4-5.0) Result Diagram: 11/24/16 0503 11/24/16 0503 Telemetry: NSR (1) STEMI (ST elevation myocardial infarction) Plan: cardiology note noted, considering staged PCI when recovered and awake will see prn please re-consult if needed (2) Cardiogenic shock Plan: weaning off pressors IABP 1:1 augmentation (3) Dyslipidemia (4) ventilatory dependent resp failure Plan: on PRVC/ AC mode 35% fi02 daily sedation vacation as tolerated vent management per CCM (5) Elevated LFTs Plan: hep panel pending (6) Sinusitis Plan: on ABX per ID cultures pending Problem Qualifiers (1) STEMI (ST elevation myocardial infarction): Qualified Code: I21.02 - ST elevation myocardial infarction involving left anterior descending (LAD) coronary artery Estella Sarmiento Nov 24, 2016 08:48
[2016-11-24] MEDS: ARTIFICIAL TEARS OPTH OINT 3.5 APPLIC/3.5 GM TUBO EACH EYE SCH ×2 (09:30→22:07)
[2016-11-24] MEDS: FUROSEMIDE 40 MG/4 ML VIAL IV PUSH SCH (09:31)
[2016-11-24] MEDS: DOCUSATE SODIUM 100 MG/10 ML UDC PO SCH ×2 (09:31→22:07)
[2016-11-24] MEDS: ASPIRIN 81 MG CHEW TAB PO SCH (09:31)
[2016-11-24] MEDS: POTASSIUM CL 40 MEQ/30 ML LIQ UDC NG SCH ×2 (09:31→22:08)
[2016-11-24] MEDS: POLYETHYLENE GLYCOL 17 GM PKG PO/NG SCH ×2 (09:31→22:08)
[2016-11-24] MEDS: FERROUS SULFATE 325 MG (65 MG ELEMENTAL IRON) TAB PO SCH (09:31)
[2016-11-24] MEDS: CLOPIDOGREL 75 MG TAB PO SCH (09:31)
[2016-11-24] MEDS: SENNOSIDES SYRUP 8.8 MG/5 ML CUP PO/TUBE SCH ×2 (09:31→22:08)
[2016-11-24] MEDS: LEVOFLOXACIN 500 MG PREMIX INJ 100 ML IV SCH (11:46)
[2016-11-24] MEDS: AZITHROMYCIN INJ 500 MG in SODIUM CHLOR 0.9% 250 ML INJ 250 ML IV SCH (12:18)
[2016-11-24] MEDS: PANTOPRAZOLE SODIUM 40 MG VIAL IV PUSH SCH (12:40)
--- NOTE | 2016-11-24 13:49 | HHI.CCPN ---
Subjective Remarks/Hospital Course 65-year-old gentleman has history of hyperlipidemia and asthma, he awoke, had some intermittent chest pain symptoms, began to become progressively worse over the course of the early afternoon. He came over to [facility], where an EKG showed new left bundle with ST-elevation anterolaterally. He was taken emergently to cardiac catheterization lab where his LAD was stented. At the end of the procedure patients suffered near cardiac arrest requiring intubation intra-aortic balloon pump placement and IV vasopressors. Critical care medicine was consulted to manage ventilatory dependent respiratory failure and assist with medical management. 2/3: Currently sedated on propofol drip. Remains on Osman-Synephrine at 90 g a minute. Tube feeds have not been initiated. No bowel movement. Remains on intra-aortic balloon pump 1:1 2: Currently sedated on propofol infusion, Versed and fentanyl drips. Remains on Osman-Synephrine at 65 g a minute. Tube feeds currently at 30 cc an hour. No bowel movement. Remains on intra-aortic balloon pump at 1:1 ratio. Subjective 11/22: Tmax 101.1. Currently 99.7. Currently intubated. Osman-Synephrine crease to 15 g per minute. Tube feeds at goal. Remains on intra-aortic balloon pump at 1:1 ratio. 11/23: Remains sedated, orally intubated on mechanical ventilation. Intra-aortic balloon pump remains in place. Transvenous pacer remains in place however has not required pacing for the last few days. 11/24: Remains sedated, orally intubated on mechanical ventilation. Intra-aortic balloon pump in place. Transvenous pacer removed today. Objective Vital Signs Date Time Temp Pulse Resp B/P Pulse Ox O2 Delivery O2 Flow Rate FiO2 11/24/16 11:00 90/53 11/24/16 11:00 94 11/24/16 11:00 97 Mechanical Ventilator 40 11/24/16 11:00 98.5 16 Intake and Output 11/23/16 11/23/16 11/24/16 08:00 16:00 00:00 Intake Total 2599 ml 2362 ml Output Total 1900 ml 2175.0 ml Balance 699 ml 187.0 ml Result Diagram: 11/24/16 0503 11/24/16 0503 Other Results Microbiology Date/Time Procedure Status Source Growth 11/22/16 03:31 Gram Stain - Final Complete Sputum Endotracheal 11/22/16 03:31 Sputum Culture - Final Complete Staphylococcus Aureus 11/22/16 03:31 Urine Culture - Final Complete Urine Catheterized Urine NO GROWTH IN 48 HOURS. Imaging Last Impressions Chest X-Ray 11/22/16 0600 Signed Impressions: Service Date/Time: Tuesday, November 22, 2016 03:11 - CONCLUSION: Stable chest x-ray with elevated left hemidiaphragm and atelectasis at the left lung base. Remi Altman MD Liver Ultrasound 11/20/16 0000 Signed Impressions: Service Date/Time: Sunday, November 20, 2016 15:47 - CONCLUSION: The liver is slightly echogenic which maybe due to fatty infiltration and or hepatocellular dysfunction. Kandi Ace MD Objective Remarks GENERAL: 65-year-old Kim male, critically ill currently resting in bed in no acute distress SKIN: Warm and dry. No rash HEAD: Normocephalic. EYES: Positive chemosis. PERRL NECK: Supple, trachea midline. No JVD or lymphadenopathy. CARDIOVASCULAR: Regular rate and rhythm. S1, S2 no S4. IABP 1:1 augmentation RESPIRATORY: Breath sounds equal bilaterally. Distant. GASTROINTESTINAL: Abdomen soft, non-tender, nondistended. Hypoactive bowel sounds. MUSCULOSKELETAL: No significant peripheral edema. Right groin is clean dry and intact with balloon pump/venous sheath BACK: Nontender without obvious deformity. No CVA tenderness. Procedures Cardiac catheterization - BMS LAD TVP A/P Problem List: (1) STEMI (ST elevation myocardial infarction) ICD Code: I21.3 Status: Acute (2) Acute respiratory failure ICD Code: J96.00 Status: Acute (3) Cardiogenic shock ICD Code: R57.0 Status: Acute (4) Dyslipidemia ICD Code: E78.5 Status: Acute (5) Obesity hypoventilation syndrome ICD Code: E66.2 Status: Acute Assessment and Plan Neuro/Psych: Patient is currently on Versed/fentanyl drip at 150 g an hour Goal of RASS -2 Daily sedation vacation Acetaminophen for fever CV: Acute systolic heart failure Cardiogenic shock Dyslipidemia IABP 1:1 Dr. Minor/cardiology following On Osman-Synephrine 20 g per minute. Lasix 40 mg IV twice a day for systolic heart failure. echoCardiogram- EF 20-25%. Distal anterior hypokinesis. Trace TR. Small pericardial effusion Cardiac catheterization - LAD 100% proximally status post BMS, ramus intermedius 90%. Mid circumflex 90%. OM1 90%. RCA 90% proximally stenosed Placement of transvenous pacemaker. In right femoral region, pacer wire removed on 11/24. Previously on cangrelor drip - transition to Plavix loaded with 600 mg yesterday, currently at 75 mg daily, Lovenox 100 mg subcutaneous daily C twice a day for full anticoagulation. CT surgery consultation - no intervention planned Continue with aspirin 81 mg by mouth daily. On Lipitor 40 mg by mouth daily for dyslipidemia. On lovastatin 10 mg by mouth daily at home. Lipid panel within normal limits. Resp: Acute respiratory failure Allergic rhinitis PRVC16/600/10/22/ Ventilator bundle Duonebs every 4 hours and as needed Spontaneous breathing trials when indicated a possible extubation trial in a.m. 11/23 Follow-up chest x-ray in a.m. 11/23 On Vicenta/Claritin home. This is been held GI: Transaminitis Elevated CPK Continue tube feeds of Jevity 1.5 goal 55 cc an hour. Protonix for GI prophylaxis Colace/Senokot twice daily for bowel regimen CPK and LFTs are trending downward. Liver ultrasound revealed likely MCCALLUM/hepatitis panel pending : Madsen has been placed for accurate I's and O's in a critically ill patient Endo: Sliding-scale insulin with Accu-Cheks to maintain euglycemia. Low regimen. Every 6 hours. Renal: Creatinine currently within normal limits. Monitor urine output closely. Heme: Normocytic anemia CBC essentially stable Recheck in AM. Heparin drip and cangrelor drip off. Plavix loading 600 mg 1 on 11/22 and started 75 mg daily maintenance dose ID: Pyrexia Blood cultures 2, sputum and urine ordered 11/22. Gram-positive cocci in pairs on sputum. Day 1 vancomycin, Zosyn and Zithromax. Infectious disease consultation FEN: Hypopotassemia - resolving Start on scheduled potassium 20 mEq twice a day while on Lasix. MSK: Range of motion therapy only at this present time Access - Peripheral IVs. Central line if indicated - Right radial artery line, venous sheath, right groin/IABP day #5. Prophylaxis - GI - Protonix - DVT - lovenox 100 mg twice a day for full anticoagulation Discussed with Dr. Alvarez. Critical Care: The total critical care time was 40 minutes. Time to perform other separately billable procedures was not included in the critical care time. Problem Qualifiers (1) STEMI (ST elevation myocardial infarction): Qualified Code: I21.02 - ST elevation myocardial infarction involving left anterior descending (LAD) coronary artery Anibal Finch MD Nov 24, 2016 13:49
--- NOTE | 2016-11-24 14:33 | HHI.IDPN ---
Note Infectious Disease Note Patient on the vent. Sedated. Moved all extremities when sedation weaned. On IABP. Temp is lower. less drainage via left nose. Blood tinged ETT secretions suctioned. Sputum culture has staph aureus. Nasal culture has staph aureus. Admitted with myocardial infarction and he was taken for emergent cardiac catheterization and stent. Had cardiac arrest and required intubation and insertion of intraaortic balloon pump. PAST MEDICAL HISTORY: 1. Hyperlipidemia. 2. Asthma. ALLERGIES: NO KNOWN DRUG ALLERGIES. ANTIBIOTICS: 1. Vancomycin. 2. Piperacillin /tazobactam. 3. Azithromycin. SOCIAL HISTORY: No tobacco, alcohol or illicit drugs. 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 OBJECTIVE: Vital Signs Date Time Temp Pulse Resp B/P Pulse Ox O2 Delivery O2 Flow Rate FiO2 11/24/16 11:00 90/53 11/24/16 11:00 94 11/24/16 11:00 97 Mechanical Ventilator 40 11/24/16 11:00 98.5 94 16 100/57 99 11/24/16 11:00 40 11/24/16 10:43 99 40 11/24/16 10:00 105/69 11/24/16 09:00 98/58 11/24/16 08:00 92/55 11/24/16 07:41 98 45 11/24/16 07:00 98 Mechanical Ventilator 50 11/24/16 07:00 99.1 101 16 106/59 98 11/24/16 07:00 101 11/24/16 07:00 92/54 11/24/16 07:00 50 11/24/16 07:00 101 11/24/16 06:00 98/58 11/24/16 05:00 108/76 11/24/16 04:55 92 50 11/24/16 04:00 77/49 11/24/16 03:29 94 35 11/24/16 03:00 91 11/24/16 03:00 94 Mechanical Ventilator 35 11/24/16 03:00 81/53 11/24/16 03:00 99.7 86 16 109/89 94 11/24/16 03:00 35 11/24/16 03:00 86 11/24/16 00:10 95 35 11/24/16 00:00 91 11/24/16 00:00 94 Mechanical Ventilator 35 11/24/16 00:00 99.0 91 16 112/57 94 11/24/16 00:00 35 11/23/16 23:00 97 11/23/16 21:13 94 35 11/23/16 20:00 100 11/23/16 20:00 100 11/23/16 20:00 99.3 100 16 102/54 95 Arterial Line 11/23/16 20:00 95 Mechanical Ventilator 35 11/23/16 20:00 35 11/23/16 20:00 83/54 11/23/16 18:00 90/63 11/23/16 17:00 86/62 11/23/16 16:00 93/53 11/23/16 15:54 95 35 11/23/16 15:00 35 11/23/16 15:00 95 Mechanical Ventilator 35 11/23/16 15:00 99.6 98 16 101/57 95 11/23/16 15:00 100 11/23/16 15:00 101 11/23/16 15:00 85/53 11/23/16 11/23/16 11/24/16 15:00 23:00 07:00 Intake Total 2362 ml 1634 ml Output Total 2175.0 ml 1800 ml Balance 187.0 ml -166 ml Intake Oral 0 ml IV Total 1712 ml 924 ml Tube Feeding 620 ml 650 ml Tube Irrigant 30 ml 60 ml Output Urine Total 2125 ml 1800 ml Tube Feeding Residual Discard 50.0 ml # Bowel Movements 0 0 Laboratory Tests Test 11/23/16 11/24/16 04:29 05:03 White Blood Count 8.7 TH/MM3 10.4 TH/MM3 Red Blood Count 3.75 MIL/MM3 3.76 MIL/MM3 Hemoglobin 11.4 GM/DL 11.6 GM/DL Hematocrit 34.3 % 34.1 % Mean Corpuscular Volume 91.5 FL 90.7 FL Mean Corpuscular Hemoglobin 30.3 PG 31.0 PG Mean Corpuscular Hemoglobin 33.1 % 34.1 % Concent Red Cell Distribution Width 14.0 % 14.1 % Platelet Count 151 TH/MM3 195 TH/MM3 Mean Platelet Volume 8.5 FL 8.6 FL Neutrophils (%) (Auto) 68.6 % 66.3 % Lymphocytes (%) (Auto) 11.7 % 12.7 % Monocytes (%) (Auto) 12.9 % 13.7 % Eosinophils (%) (Auto) 6.1 % 6.9 % Basophils (%) (Auto) 0.7 % 0.4 % Neutrophils # (Auto) 6.0 TH/MM3 6.9 TH/MM3 Lymphocytes # (Auto) 1.0 TH/MM3 1.3 TH/MM3 Monocytes # (Auto) 1.1 TH/MM3 1.4 TH/MM3 Eosinophils # (Auto) 0.5 TH/MM3 0.7 TH/MM3 Basophils # (Auto) 0.1 TH/MM3 0.0 TH/MM3 CBC Comment DIFF FINAL DIFF FINAL Differential Comment Laboratory Tests Test 11/23/16 11/24/16 04:29 05:03 Sodium Level 138 MEQ/L 135 MEQ/L Potassium Level 4.2 MEQ/L 4.7 MEQ/L Chloride Level 102 MEQ/L 101 MEQ/L Carbon Dioxide Level 27.7 MEQ/L 26.7 MEQ/L Anion Gap 8 MEQ/L 7 MEQ/L Blood Urea Nitrogen 17 MG/DL 21 MG/DL Creatinine 1.28 MG/DL 1.25 MG/DL Estimat Glomerular Filtration 68 ML/MIN 70 ML/MIN Rate Random Glucose 142 MG/DL 120 MG/DL Calcium Level 7.6 MG/DL 8.4 MG/DL Phosphorus Level 3.1 MG/DL Magnesium Level 2.1 MG/DL Total Bilirubin 0.7 MG/DL 0.8 MG/DL Aspartate Amino Transf 180 U/L 142 U/L (AST/SGOT) Alanine Aminotransferase 83 U/L 94 U/L (ALT/SGPT) Alkaline Phosphatase 70 U/L 100 U/L Total Creatine Kinase 1773 U/L Creatine Kinase MB 11.4 NG/ML Creatine Kinase MB % 0.6 % Total Protein 6.1 GM/DL 7.3 GM/DL Albumin 2.2 GM/DL 2.2 GM/DL Microbiology Date/Time Procedure Status Source Growth 11/22/16 03:31 Gram Stain - Final Complete Sputum Endotracheal 11/22/16 03:31 Sputum Culture - Final Complete Staphylococcus Aureus 11/22/16 03:31 Urine Culture - Final Complete Urine Catheterized Urine NO GROWTH IN 48 HOURS. 11/22/16 06:05 Aerobic Blood Culture - Preliminary Resulted Blood Peripheral NO GROWTH IN 2 DAYS 11/22/16 06:05 Anaerobic Blood Culture - Preliminary Resulted Blood Peripheral NO GROWTH IN 2 DAYS 11/22/16 06:05 Aerobic Blood Culture - Preliminary Resulted Blood Peripheral NO GROWTH IN 2 DAYS 11/22/16 06:05 Anaerobic Blood Culture - Preliminary Resulted Blood Peripheral NO GROWTH IN 2 DAYS 11/22/16 20:15 Cancelled Respiratory 11/22/16 20:15 Gram Stain - Final Resulted Wound Other 11/22/16 20:15 Wound Culture Resulted Wound Other Pending IMAGING: Chest X-Ray 11/23/16 0600 Signed Impressions: Service Date/Time: Wednesday, November 23, 2016 03:04 - CONCLUSION: Left effusion and basilar airspace disease. Derrick Hagan MD Lower Extremity Ultrasound 11/22/16 0000 Signed Impressions: Service Date/Time: Tuesday, November 22, 2016 19:29 - CONCLUSION: 1. Negative for deep venous thrombosis. Exam somewhat limited on the right side as above. Dominic Bowen MD Liver Ultrasound 11/20/16 0000 Signed Impressions: Service Date/Time: Sunday, November 20, 2016 15:47 - CONCLUSION: The liver is slightly echogenic which maybe due to fatty infiltration and or hepatocellular dysfunction. Kandi Ace MD PHYSICAL EXAMINATION: GENERAL: On the ventilator. He is on an intraaortic balloon pump. HEENT: Unable to fully assess since the patient is currently on the ventilator. The oropharynx is intubated. NECK: The neck has no swelling or adenopathy. LUNGS: Coarse breath sounds. HEART: Difficult to auscultate because of the intraaortic balloon pump noises. ABDOMEN: Bowel sounds present but diminished, soft, mildly distended. EXTREMITIES: No clubbing or cyanosis or edema. SKIN: No rash. The patient has vitiligo skin changes at the lower extremities below the knees. NEUROLOGIC: Unable to assess. IMPRESSION: 1. Fever. Post intubation and post cardiac arrest. Temp lower. 2. Post myocardial infarction. 3. Acute respiratory failure. 4. Sinusitis. 5. Pneumonia - sputum culture has Staph aureus. RECOMMENDATIONS: 1. Continue vancomycin. 2. Continue piperacillin / tazobactam which will give gram-negative coverage. 3. stop azithromycin. 4. Continue Levaquin. 5. Monitor blood culture. 6. Monitor nasal culture. 7. Monitor temperature. Kamar Freire MD Nov 24, 2016 14:33
[2016-11-24] MEDS: FUROSEMIDE 100 MG/10 ML VIAL IV PUSH SCH (18:22)
[2016-11-24] MEDS: PHENYLEPHRINE INJ 40 MG in DEXTROSE 5% IN WATE 500 ML INJ 496 ML IV SCH ×2 (18:50)
[2016-11-24] MEDS: ATORVASTATIN 40 MG TAB PO SCH (22:07)
[2016-11-25] VITALS (14 sets, daily range): BP systolic 90–152; BP diastolic 48–81; PULSE 87–108; RESP 16; TEMP 99.1–100.4; O2SAT 94–99
[2016-11-25] MEDS: PIPERACIL-TAZO 4.5 GM PREMIX 100 ML IV SCH ×2 (01:19→09:24)
[2016-11-25] MEDS: VANCOMYCIN INJ 1,500 MG in SODIUM CHLORID 0.9% 500 ML INJ 500 ML IV SCH (01:19)
[2016-11-25] MEDS: ENOXAPARIN SODIUM 100 MG/ML SYRINGE SQ SCH ×2 (03:13→13:12)
[2016-11-25] MEDS: RESP: ALBUTEROL 2.5 MG/IPRATROPIUM 0.5 MG NEB (SCH) NEB ×4 (03:27→21:41)
[2016-11-25 06:00] LABS: HEMATOCRIT 30.6 % (39.0-51.0); MEAN CELL VOLUME 90.5 FL (80.0-100.0); MEAN CORPUSCULAR HEMOGLOBIN 31.1 PG (27.0-34.0); MEAN CORPUSCULAR HGB CONC 34.3 % (32.0-36.0); PLATELET COUNT 186 TH/MM3 (150-450); RED BLOOD COUNT 3.38 MIL/MM3 (4.50-5.90); REVIEW FLAG FINAL; WHITE BLOOD COUNT 7.2 TH/MM3 (4.0-11.0)
[2016-11-25] MEDS: INSULIN NovoLIN REGULAR SUPPLEMENTAL SCALE SQ SCH ×3 (06:00→18:28)
[2016-11-25] MEDS: MIDAZOLAM 100 MG/ML INJ 100 ML IV SCH (06:40)
--- NOTE | 2016-11-25 07:47 | PD.CARD.PN ---
Subjective Subjective Remarks intubated, nurse states that with every extubation attempt he does not tolerate the weaning of sedation (Gera Garvin) Objective Vital Signs / I&O Vital Signs Date Time Temp Pulse Resp B/P Pulse Ox O2 Delivery O2 Flow Rate FiO2 11/25/16 07:29 96 40 11/25/16 06:00 11/25/16 05:00 11/25/16 04:00 99.4 90 16 117/59 95 11/25/16 04:00 82/53 11/25/16 04:00 100 11/25/16 04:00 40 11/25/16 04:00 95 Mechanical Ventilator 40 11/25/16 03:27 96 40 11/25/16 03:00 11/25/16 02:00 11/25/16 01:30 94 40 11/25/16 01:00 11/25/16 00:00 95 Mechanical Ventilator 40 11/25/16 00:00 99.6 96 16 90/48 95 11/25/16 00:00 100 11/25/16 00:00 90/48 11/25/16 00:00 40 11/24/16 23:00 11/24/16 22:20 97 40 11/24/16 22:00 11/24/16 21:00 11/24/16 20:25 97 40 11/24/16 20:00 105/63 11/24/16 20:00 100 11/24/16 20:00 96 Mechanical Ventilator 40 11/24/16 20:00 99.9 93 16 105/63 96 11/24/16 20:00 40 11/24/16 18:00 11/24/16 17:00 11/24/16 16:05 99 40 11/24/16 16:00 11/24/16 15:00 40 11/24/16 15:00 11/24/16 15:00 94 11/24/16 15:00 97 Mechanical Ventilator 40 11/24/16 15:00 99.4 94 16 116/56 97 11/24/16 14:00 11/24/16 13:00 11/24/16 12:00 11/24/16 11:00 90/53 11/24/16 11:00 94 11/24/16 11:00 97 Mechanical Ventilator 40 11/24/16 11:00 98.5 94 16 100/57 99 2/7/17 11:00 40 11/24/16 10:43 99 40 11/24/16 10:00 105/69 11/24/16 09:00 98/58 11/24/16 08:00 92/55 I/O 11/24/16 11/24/16 11/24/16 11/25/16 11/25/16 11/25/16 07:00 15:00 23:00 07:00 15:00 23:00 Intake Total 1634 ml 2000 ml 1600 ml Output Total 1800 ml 2700.0 ml 3250 ml Balance -166 ml -700.0 ml -1650 ml Intake Oral 0 ml IV Total 924 ml 1287 ml 1000 ml Tube Feeding 650 ml 473 ml 600 ml Tube Irrigant 60 ml Other 240 ml Output Urine Total 1800 ml 2650 ml 3250 ml Tube Feeding Residual Discard 50.0 ml # Bowel Movements 0 0 0 Physical Exam GENERAL: intubated NECK: No JVD. No carotid bruit. CARDIOVASCULAR: Regular rate and rhythm. S1/S2 no murmur, rub, or gallop. RESPIRATORY: No accessory muscle use. rhonchi to auscultation. Breath sounds equal bilaterally. GASTROINTESTINAL: Abdomen soft, non-tender, nondistended. MUSCULOSKELETAL: edema. Laboratory Laboratory Tests Test 11/25/16 05:16 White Blood Count 7.2 TH/MM3 Red Blood Count 3.38 MIL/MM3 Hemoglobin 10.5 GM/DL Hematocrit 30.6 % Mean Corpuscular Volume 90.5 FL Mean Corpuscular Hemoglobin 31.1 PG Mean Corpuscular Hemoglobin 34.3 % Concent Red Cell Distribution Width 14.0 % Platelet Count 186 TH/MM3 Mean Platelet Volume 8.4 FL Creatinine 1.31 MG/DL Estimat Glomerular Filtration 67 ML/MIN Rate (Gera Garvin) Assessment and Plan Problem List: (1) STEMI (ST elevation myocardial infarction) (2) Cardiogenic shock (3) Dyslipidemia (4) ventilatory dependent resp failure (5) Elevated LFTs (6) Sinusitis Assessment and Plan STEMI - PCI LAD. cardiogenic shock. aspirin and plavix. If he recovers, would likely consider staged PCI. I am not sure he is going to be a good surgical candidate, but we can reevaluate at a later date. Appreciate CT Surg assistance CHF, acute systolic - + weight gain 100 kg -> 122 kg. Good U.OP. but I/O's. DC heparin gtt. Lovenox SQ BID. hypotension - IABP. wean nette gtt as tolerates. no BB or ACEi. R. radial sheath d/c'd (Gera Garvin) Assessment and Plan intubated. agitated with sedation weaning. good diuresis. continue lasix IV BID continue lovenox due to IABP hypotension improved - off nette gtt. cont IABP if not able to extubate in next few days, may need to consider trach Anemia - FeSO4. avoid transfusion unless Hb <8 (Adebayo Alvarez MD) Problem Qualifiers (1) STEMI (ST elevation myocardial infarction): Qualified Code: I21.02 - ST elevation myocardial infarction involving left anterior descending (LAD) coronary artery Gera Garvin Nov 25, 2016 07:47 Adebayo Alvarez MD Nov 25, 2016 14:28
[2016-11-25] MEDS: CHLORHEXIDINE 0.12% (ORAL KIT) 15 ML CUP MT SCH ×2 (08:00→21:01)
[2016-11-25] MEDS: FUROSEMIDE 100 MG/10 ML VIAL IV PUSH SCH ×2 (09:00→18:00)
[2016-11-25] MEDS: ARTIFICIAL TEARS OPTH OINT 3.5 APPLIC/3.5 GM TUBO EACH EYE SCH ×2 (09:00→21:01)
[2016-11-25] MEDS: POTASSIUM CL 40 MEQ/30 ML LIQ UDC NG SCH ×2 (09:19→21:00)
[2016-11-25] MEDS: DOCUSATE SODIUM 100 MG/10 ML UDC PO SCH ×2 (09:19→21:00)
[2016-11-25] MEDS: SENNOSIDES SYRUP 8.8 MG/5 ML CUP PO/TUBE SCH ×2 (09:19→21:00)
[2016-11-25] MEDS: POLYETHYLENE GLYCOL 17 GM PKG PO/NG SCH ×2 (09:19→20:59)
[2016-11-25] MEDS: ASPIRIN 81 MG CHEW TAB PO SCH (09:20)
[2016-11-25] MEDS: CLOPIDOGREL 75 MG TAB PO SCH (09:20)
[2016-11-25] MEDS: FERROUS SULFATE 325 MG (65 MG ELEMENTAL IRON) TAB PO SCH ×2 (09:20→21:00)
--- NOTE | 2016-11-25 10:34 | HHI.CCPN ---
Subjective Remarks/Hospital Course 65-year-old gentleman has history of hyperlipidemia and asthma, he awoke, had some intermittent chest pain symptoms, began to become progressively worse over the course of the early afternoon. He came over to [facility], where an EKG showed new left bundle with ST-elevation anterolaterally. He was taken emergently to cardiac catheterization lab where his LAD was stented. At the end of the procedure patients suffered near cardiac arrest requiring intubation intra-aortic balloon pump placement and IV vasopressors. Critical care medicine was consulted to manage ventilatory dependent respiratory failure and assist with medical management. 2: Currently sedated on propofol drip. Remains on Osman-Synephrine at 90 g a minute. Tube feeds have not been initiated. No bowel movement. Remains on intra-aortic balloon pump 1:1 2: Currently sedated on propofol infusion, Versed and fentanyl drips. Remains on Osman-Synephrine at 65 g a minute. Tube feeds currently at 30 cc an hour. No bowel movement. Remains on intra-aortic balloon pump at 1:1 ratio. Subjective 11/22: Tmax 101.1. Currently 99.7. Currently intubated. Osman-Synephrine crease to 15 g per minute. Tube feeds at goal. Remains on intra-aortic balloon pump at 1:1 ratio. 11/23: Remains sedated, orally intubated on mechanical ventilation. Intra-aortic balloon pump remains in place. Transvenous pacer remains in place however has not required pacing for the last few days. 11/24: Remains sedated, orally intubated on mechanical ventilation. Intra-aortic balloon pump in place. Transvenous pacer removed today. 11/25: Remains sedated, orally intubated on mechanical ventilation. Intra-aortic balloon pump in place. Had some epistaxis overnight. Received Lovenox 100 mg 3 AM this morning. I have asked AUD[employer] TAPE LIBRARIAN to hold Lovenox after checking with Dr. Alvarez in v/o epistaxis. Objective Vital Signs Date Time Temp Pulse Resp B/P Pulse Ox O2 Delivery O2 Flow Rate FiO2 11/25/16 10:06 98/55 11/25/16 07:29 96 40 11/25/16 07:00 99.1 98 16 11/25/16 07:00 Mechanical Ventilator Intake and Output 11/24/16 11/24/16 11/25/16 08:00 16:00 00:00 Intake Total 1634 ml 2000 ml Output Total 1800 ml 2700.0 ml Balance -166 ml -700.0 ml Result Diagram: 11/25/16 0516 11/25/16 0516 Other Results Microbiology Date/Time Procedure Status Source Growth 11/22/16 20:15 Gram Stain - Final Complete Wound Other 11/22/16 20:15 Wound Culture - Final Complete Staphylococcus Aureus Imaging Last Impressions Chest X-Ray 11/22/16 0600 Signed Impressions: Service Date/Time: Tuesday, November 22, 2016 03:11 - CONCLUSION: Stable chest x-ray with elevated left hemidiaphragm and atelectasis at the left lung base. Remi Altman MD Liver Ultrasound 11/20/16 0000 Signed Impressions: Service Date/Time: Sunday, November 20, 2016 15:47 - CONCLUSION: The liver is slightly echogenic which maybe due to fatty infiltration and or hepatocellular dysfunction. Kandi Ace MD Objective Remarks GENERAL: 65-year-old Kim male, critically ill currently resting in bed in no acute distress SKIN: Warm and dry. No rash HEENT: Normocephalic. Positive chemosis. PERRL. minimal epistaxis with packing in nare noted NECK: Supple, trachea midline. No JVD or lymphadenopathy. CARDIOVASCULAR: Regular rate and rhythm. S1, S2 no S4. IABP 1:1 augmentation RESPIRATORY: Breath sounds equal bilaterally. Distant. GASTROINTESTINAL: Abdomen soft, non-tender, nondistended. Hypoactive bowel sounds. MUSCULOSKELETAL: No significant peripheral edema. Right groin is clean dry and intact with balloon pump/venous sheath BACK: Nontender without obvious deformity. No CVA tenderness. Procedures Cardiac catheterization - BMS LAD TVP A/P Problem List: (1) STEMI (ST elevation myocardial infarction) ICD Code: I21.3 Status: Acute (2) Acute respiratory failure ICD Code: J96.00 Status: Acute (3) Cardiogenic shock ICD Code: R57.0 Status: Acute (4) Dyslipidemia ICD Code: E78.5 Status: Acute (5) Obesity hypoventilation syndrome ICD Code: E66.2 Status: Acute Assessment and Plan Neuro/Psych: Patient is currently on Versed/fentanyl drip. Attempt trial of precedex to facilitate vent weaning as patient gets extremely agitated on stopping Versed and fentanyl. Goal of RASS -2 Daily sedation vacation Acetaminophen for fever CV: Acute systolic heart failure Cardiogenic shock Dyslipidemia IABP 1:1 Dr. Alvarez/cardiology following On Osman-Synephrine 10 g per minute. Lasix 40 mg IV twice a day for systolic heart failure. echoCardiogram- EF 20-25%. Distal anterior hypokinesis. Trace TR. Small pericardial effusion Cardiac catheterization - LAD 100% proximally status post BMS, ramus intermedius 90%. Mid circumflex 90%. OM1 90%. RCA 90% proximally stenosed Placement of transvenous pacemaker. In right femoral region, pacer wire removed on 11/24. Previously on cangrelor drip - transition to Plavix loaded with 600 mg yesterday, currently at 75 mg daily, Lovenox 100 mg subcutaneous daily C twice a day for full anticoagulation. Hold Lovenox in view of epistaxis if okay with Dr. Alvarez. CT surgery consultation - no intervention planned Continue with aspirin 81 mg by mouth daily. On Lipitor 40 mg by mouth daily for dyslipidemia. On lovastatin 10 mg by mouth daily at home. Lipid panel within normal limits. Resp: Acute respiratory failure Allergic rhinitis PRVC16/600/10/22/34 Ventilator bundle Duonebs every 4 hours and as needed Spontaneous breathing trials to decide extubation. On Vicenta/Claritin home. This is been held GI: Transaminitis Elevated CPK Continue tube feeds of Jevity 1.5 goal 55 cc an hour. Protonix for GI prophylaxis Colace/Senokot twice daily for bowel regimen CPK and LFTs are trending downward. Liver ultrasound revealed likely MCCALLUM/hepatitis panel pending : Madsen has been placed for accurate I's and O's in a critically ill patient Endo: Sliding-scale insulin with Accu-Cheks to maintain euglycemia. Low regimen. Every 6 hours. Renal: Creatinine currently within normal limits. Monitor urine output closely. Heme: Normocytic anemia CBC essentially stable Recheck in AM. Heparin drip and cangrelor drip off. Plavix loading 600 mg 1 on 11/22 and started 75 mg daily maintenance dose ID: Pyrexia Blood cultures 2, sputum and urine ordered 11/22. Gram-positive cocci in pairs on sputum. Day 1 vancomycin, Zosyn and Zithromax. Infectious disease consultation FEN: Hypopotassemia - resolving Start on scheduled potassium 20 mEq twice a day while on Lasix. MSK: Range of motion therapy only at this present time Access - Peripheral IVs. Central line if indicated - Right radial artery line, venous sheath, right groin/IABP day #56 Prophylaxis - GI - Protonix - DVT - lovenox 100 mg twice a day for full anticoagulation Discussed with Dr. Alvarez on 11/24. Critical Care: The total critical care time was 40 minutes. Time to perform other separately billable procedures was not included in the critical care time. Problem Qualifiers (1) STEMI (ST elevation myocardial infarction): Qualified Code: I21.02 - ST elevation myocardial infarction involving left anterior descending (LAD) coronary artery Anibal Finch MD Nov 25, 2016 10:34
--- NOTE | 2016-11-25 11:15 | HHI.IDPN ---
Note Infectious Disease Note Patient on the vent. Sedation off. No purposeful movements. Not following commands. On IABP. Afebrile.Bloody drainage via left nasal passage. Blood tinged ETT secretions suctioned. Admitted with myocardial infarction and he was taken for emergent cardiac catheterization and stent. Had cardiac arrest and required intubation and insertion of intraaortic balloon pump. PAST MEDICAL HISTORY: 1. Hyperlipidemia. 2. Asthma. ALLERGIES: NO KNOWN DRUG ALLERGIES. ANTIBIOTICS: 1. Vancomycin. 2. Piperacillin /tazobactam. 3. Azithromycin. SOCIAL HISTORY: No tobacco, alcohol or illicit drugs. 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 OBJECTIVE: Vital Signs Date Time Temp Pulse Resp B/P Pulse Ox O2 Delivery O2 Flow Rate FiO2 11/25/16 10:06 98/55 11/25/16 09:00 94/58 11/25/16 08:05 225/67 11/25/16 07:29 96 40 11/25/16 07:00 99.1 98 16 141/79 98 11/25/16 07:00 98 Mechanical Ventilator 40 11/25/16 07:00 40 11/25/16 07:00 96/61 11/25/16 07:00 95 11/25/16 06:00 11/25/16 05:00 11/25/16 04:00 99.4 90 16 117/59 95 11/25/16 04:00 82/53 11/25/16 04:00 100 11/25/16 04:00 40 11/25/16 04:00 95 Mechanical Ventilator 40 11/25/16 03:27 96 40 11/25/16 03:00 11/25/16 02:00 11/25/16 01:30 94 40 11/25/16 01:00 11/25/16 00:00 95 Mechanical Ventilator 40 11/25/16 00:00 99.6 96 16 90/48 95 11/25/16 00:00 100 11/25/16 00:00 90/48 11/25/16 00:00 40 11/24/16 23:00 11/24/16 22:20 97 40 11/24/16 22:00 11/24/16 21:00 11/24/16 20:25 97 40 11/24/16 20:00 105/63 11/24/16 20:00 100 11/24/16 20:00 96 Mechanical Ventilator 40 11/24/16 20:00 99.9 93 16 105/63 96 11/24/16 20:00 40 11/24/16 18:00 11/24/16 17:00 11/24/16 16:05 99 40 11/24/16 16:00 11/24/16 15:00 40 11/24/16 15:00 11/24/16 15:00 94 11/24/16 15:00 97 Mechanical Ventilator 40 11/24/16 15:00 99.4 94 16 116/56 97 11/24/16 14:00 11/24/16 13:00 11/24/16 12:00 11/24/16 11/24/16 11/25/16 15:00 23:00 07:00 Intake Total 2000 ml 1600 ml Output Total 2700.0 ml 3250 ml Balance -700.0 ml -1650 ml Intake Oral 0 ml IV Total 1287 ml 1000 ml Tube Feeding 473 ml 600 ml Other 240 ml Output Urine Total 2650 ml 3250 ml Tube Feeding Residual Discard 50.0 ml # Bowel Movements 0 0 Laboratory Tests Test 11/24/16 11/25/16 05:03 05:16 White Blood Count 10.4 TH/MM3 7.2 TH/MM3 Red Blood Count 3.76 MIL/MM3 3.38 MIL/MM3 Hemoglobin 11.6 GM/DL 10.5 GM/DL Hematocrit 34.1 % 30.6 % Mean Corpuscular Volume 90.7 FL 90.5 FL Mean Corpuscular Hemoglobin 31.0 PG 31.1 PG Mean Corpuscular Hemoglobin 34.1 % 34.3 % Concent Red Cell Distribution Width 14.1 % 14.0 % Platelet Count 195 TH/MM3 186 TH/MM3 Mean Platelet Volume 8.6 FL 8.4 FL Neutrophils (%) (Auto) 66.3 % Lymphocytes (%) (Auto) 12.7 % Monocytes (%) (Auto) 13.7 % Eosinophils (%) (Auto) 6.9 % Basophils (%) (Auto) 0.4 % Neutrophils # (Auto) 6.9 TH/MM3 Lymphocytes # (Auto) 1.3 TH/MM3 Monocytes # (Auto) 1.4 TH/MM3 Eosinophils # (Auto) 0.7 TH/MM3 Basophils # (Auto) 0.0 TH/MM3 CBC Comment DIFF FINAL Differential Comment Laboratory Tests Test 11/24/16 11/25/16 05:03 05:16 Sodium Level 135 MEQ/L Potassium Level 4.7 MEQ/L Chloride Level 101 MEQ/L Carbon Dioxide Level 26.7 MEQ/L Anion Gap 7 MEQ/L Blood Urea Nitrogen 21 MG/DL Creatinine 1.25 MG/DL 1.31 MG/DL Estimat Glomerular Filtration 70 ML/MIN 67 ML/MIN Rate Random Glucose 120 MG/DL Calcium Level 8.4 MG/DL Total Bilirubin 0.8 MG/DL Aspartate Amino Transf 142 U/L (AST/SGOT) Alanine Aminotransferase 94 U/L (ALT/SGPT) Alkaline Phosphatase 100 U/L Total Protein 7.3 GM/DL Albumin 2.2 GM/DL Microbiology Date/Time Procedure Status Source Growth 11/22/16 20:15 Cancelled Respiratory 11/22/16 20:15 Gram Stain - Final Complete Wound Other 11/22/16 20:15 Wound Culture - Final Complete Staphylococcus Aureus Microbiology Date/Time Procedure Status Source Growth 11/22/16 03:31 Gram Stain - Final Complete Sputum Endotracheal 11/22/16 03:31 Sputum Culture - Final Complete Staphylococcus Aureus 11/22/16 03:31 Urine Culture - Final Complete Urine Catheterized Urine NO GROWTH IN 48 HOURS. 11/22/16 06:05 Aerobic Blood Culture - Preliminary Resulted Blood Peripheral NO GROWTH IN 2 DAYS 11/22/16 06:05 Anaerobic Blood Culture - Preliminary Resulted Blood Peripheral NO GROWTH IN 2 DAYS 11/22/16 06:05 Aerobic Blood Culture - Preliminary Resulted Blood Peripheral NO GROWTH IN 2 DAYS 11/22/16 06:05 Anaerobic Blood Culture - Preliminary Resulted Blood Peripheral NO GROWTH IN 2 DAYS 11/22/16 20:15 Cancelled Respiratory 11/22/16 20:15 Gram Stain - Final Resulted Wound Other 11/22/16 20:15 Wound Culture Resulted Wound Other Pending IMAGING: Chest X-Ray 11/23/16 0600 Signed Impressions: Service Date/Time: Wednesday, November 23, 2016 03:04 - CONCLUSION: Left effusion and basilar airspace disease. Derrick Hagan MD Lower Extremity Ultrasound 11/22/16 0000 Signed Impressions: Service Date/Time: Tuesday, November 22, 2016 19:29 - CONCLUSION: 1. Negative for deep venous thrombosis. Exam somewhat limited on the right side as above. Dominic Bowen MD Liver Ultrasound 11/20/16 0000 Signed Impressions: Service Date/Time: Sunday, November 20, 2016 15:47 - CONCLUSION: The liver is slightly echogenic which maybe due to fatty infiltration and or hepatocellular dysfunction. Kandi Ace MD PHYSICAL EXAMINATION: GENERAL: On the ventilator. HEENT: Unable to fully assess since the patient is currently on the ventilator. Conjunctival effusion and erythema. NECK: The neck has no swelling or adenopathy. LUNGS: Coarse breath sounds bilateral. HEART: Difficult to auscultate because of the intraaortic balloon pump noises. ABDOMEN: Bowel sounds present but diminished, soft, Distended. EXTREMITIES: No clubbing or cyanosis or edema. SKIN: No rash. NEUROLOGIC: Unable to assess. IMPRESSION: 1. Fever. Post intubation and post cardiac arrest. Temp lower. 2. Post myocardial infarction. 3. Acute respiratory failure. 4. Sinusitis. Staph aureus. 5. Pneumonia - Staph aureus. RECOMMENDATIONS: 1. Stop vancomycin. 2. Stop piperacillin / tazobactam. 3. Start Ancef. 4. Continue Levaquin. 5. Monitor temperature. 6. Monitor clinical status. Kamar Freire MD Nov 25, 2016 11:15
[2016-11-25] MEDS: GENTAMICIN SULFATE 0.3% OPHT OINT 3.5 GM TUBE EACH EYE SCH ×3 (11:42→18:28)
[2016-11-25] MEDS: LEVOFLOXACIN 500 MG PREMIX INJ 100 ML IV SCH (13:11)
[2016-11-25] MEDS: PANTOPRAZOLE SODIUM 40 MG VIAL IV PUSH SCH (13:12)
[2016-11-25] MEDS ORDERED: FUROSEMIDE 40 MG/4 ML VIAL ONE (18:26)
[2016-11-25] MEDS: ATORVASTATIN 40 MG TAB PO SCH (21:00)
[2016-11-26] VITALS (17 sets, daily range): BP systolic 92–130; BP diastolic 53–73; PULSE 80–98; RESP 16; TEMP 99.1–100.2; O2SAT 93–99
[2016-11-26] MEDS: INSULIN NovoLIN REGULAR SUPPLEMENTAL SCALE SQ SCH ×4 (00:49→17:59)
[2016-11-26] MEDS: ENOXAPARIN SODIUM 100 MG/ML SYRINGE SQ SCH ×2 (03:38→15:00)
[2016-11-26] MEDS: MIDAZOLAM 100 MG/ML INJ 100 ML IV SCH ×2 (03:39→12:41)
[2016-11-26] MEDS: RESP: ALBUTEROL 2.5 MG/IPRATROPIUM 0.5 MG NEB (SCH) NEB ×3 (04:18→15:30)
--- NOTE | 2016-11-26 08:05 | PD.CARD.PN ---
Subjective Subjective Remarks off pressors (Gera Garvin) Objective Vital Signs / I&O Vital Signs Date Time Temp Pulse Resp B/P Pulse Ox O2 Delivery O2 Flow Rate FiO2 11/26/16 06:00 97/64 11/26/16 05:00 105/8 11/26/16 04:24 99 40 11/26/16 04:00 99.6 91 16 129/70 99 11/26/16 04:00 92 11/26/16 04:00 86/60 11/26/16 03:30 99 Mechanical Ventilator 40 11/26/16 03:30 40 11/26/16 03:00 86/60 11/26/16 02:00 85/53 11/26/16 01:15 98 40 11/26/16 01:00 81/55 11/26/16 00:00 90/58 11/26/16 00:00 92 11/26/16 00:00 99.9 92 16 130/73 98 11/25/16 23:45 40 11/25/16 23:45 98 Mechanical Ventilator 40 11/25/16 23:00 100/66 11/25/16 22:20 97 40 11/25/16 22:00 92/62 11/25/16 21:00 92/60 11/25/16 20:00 93/62 11/25/16 20:00 100.4 100 16 133/73 99 11/25/16 20:00 99 11/25/16 20:00 40 11/25/16 20:00 99 Mechanical Ventilator 40 11/25/16 19:58 97 40 11/25/16 19:00 105/75 11/25/16 18:06 141/62 11/25/16 17:00 100/65 11/25/16 16:15 111/72 11/25/16 16:08 99 40 11/25/16 15:00 99.3 108 16 120/64 99 11/25/16 15:00 98 Mechanical Ventilator 40 11/25/16 15:00 84/55 11/25/16 15:00 40 11/25/16 15:00 87 11/25/16 14:00 85/57 11/25/16 13:01 97 40 11/25/16 13:00 84/58 11/25/16 12:00 79/54 11/25/16 11:18 95 40 11/25/16 11:00 108 11/25/16 11:00 96/61 11/25/16 11:00 99.6 108 16 152/81 98 11/25/16 11:00 98 Mechanical Ventilator 40 11/25/16 11:00 40 11/25/16 10:06 98/55 11/25/16 09:00 94/58 11/25/16 08:05 225/67 I/O 11/25/16 11/25/16 11/25/16 11/26/16 11/26/16 11/26/16 07:00 15:00 23:00 07:00 15:00 23:00 Intake Total 1600 ml 1030 ml 1483 ml Output Total 3250 ml 3250 ml 2225 ml Balance -1650 ml -2220 ml -742 ml Intake Oral 0 ml 0 ml 0 ml IV Total 1000 ml 180 ml 431 ml Tube Feeding 600 ml 600 ml 742 ml Tube Irrigant 250 ml Other 310 ml Output Urine Total 3250 ml 3250 ml 2225 ml Stool Total 0 ml Gastric Drainage Total 0 ml # Bowel Movements 0 1 Physical Exam GENERAL: intubated NECK: No JVD. No carotid bruit. CARDIOVASCULAR: Regular rate and rhythm. S1/S2 no murmur, rub, or gallop. RESPIRATORY: No accessory muscle use. rhonchi to auscultation. Breath sounds equal bilaterally. GASTROINTESTINAL: Abdomen soft, non-tender, nondistended. MUSCULOSKELETAL: edema. (Gera Garvin) Assessment and Plan Problem List: (1) STEMI (ST elevation myocardial infarction) (2) Cardiogenic shock (3) Dyslipidemia (4) ventilatory dependent resp failure (5) Elevated LFTs (6) Sinusitis Assessment and Plan STEMI - PCI LAD. cardiogenic shock. aspirin and plavix. If he recovers, would likely consider staged PCI. I am not sure he is going to be a good surgical candidate, but we can reevaluate at a later date. Appreciate CT Surg assistance CHF, acute systolic - + weight gain 100 kg -> 122 kg. Good U.OP. but I/O's. DC heparin gtt. Lovenox SQ BID. hypotension - IABP. wean nette gtt as tolerates. no BB or ACEi. Attempt at extubation planned for today (Gera Garvin) Assessment and Plan cardiogenic shock - BP improving daily. off neosynephrine gtt now, since yesterday . IABP in place. CHF - excellent diuresis. Cr stable. will cut lasix back to 40 mg IV BID weaning sedation today. will attempt extubation again today. epistaxis - will reduce lovenox to 80 mg SQ BID. can DC lovenox once IABP is out. will plan to start to wean IABP once extubated. (Adebayo Alvarez MD) Problem Qualifiers (1) STEMI (ST elevation myocardial infarction): Qualified Code: I21.02 - ST elevation myocardial infarction involving left anterior descending (LAD) coronary artery Gera Garvin Nov 26, 2016 08:05 Adebayo Alvarez MD Nov 26, 2016 09:20
[2016-11-26] MEDS: CHLORHEXIDINE 0.12% (ORAL KIT) 15 ML CUP MT SCH ×2 (08:22→21:21)
[2016-11-26] MEDS: GENTAMICIN SULFATE 0.3% OPHT OINT 3.5 GM TUBE EACH EYE SCH ×3 (08:23→18:02)
[2016-11-26] MEDS: ARTIFICIAL TEARS OPTH OINT 3.5 APPLIC/3.5 GM TUBO EACH EYE SCH ×2 (08:23→21:23)
[2016-11-26] MEDS: CLOPIDOGREL 75 MG TAB PO SCH (08:26)
[2016-11-26] MEDS: SENNOSIDES SYRUP 8.8 MG/5 ML CUP PO/TUBE SCH ×2 (08:27→21:21)
[2016-11-26] MEDS: FUROSEMIDE 100 MG/10 ML VIAL IV PUSH SCH (08:27)
[2016-11-26] MEDS: POTASSIUM CL 40 MEQ/30 ML LIQ UDC NG SCH ×2 (08:27→21:22)
[2016-11-26] MEDS: ASPIRIN 81 MG CHEW TAB PO SCH (08:27)
[2016-11-26] MEDS: FERROUS SULFATE 325 MG (65 MG ELEMENTAL IRON) TAB PO SCH ×2 (08:28→21:21)
[2016-11-26] MEDS: DEXMEDETOMIDINE INJ 50 ML IV SCH ×3 (08:28→21:52)
[2016-11-26] MEDS: DOCUSATE SODIUM 100 MG/10 ML UDC PO SCH ×2 (08:31→21:21)
[2016-11-26] MEDS: POLYETHYLENE GLYCOL 17 GM PKG PO/NG SCH ×2 (08:32→21:21)
[2016-11-26] MEDS: PANTOPRAZOLE SODIUM 40 MG VIAL IV PUSH SCH (12:37)
[2016-11-26] MEDS: LEVOFLOXACIN 500 MG PREMIX INJ 100 ML IV SCH (12:38)
[2016-11-26] MEDS: fentaNYL DRIP 250 ML IV SCH (12:39)
[2016-11-26] MEDS ORDERED: PHARMACY ORDERED LAB XX ONE (12:45)
--- NOTE | 2016-11-26 13:01 | HHI.IDPN ---
Note Infectious Disease Note Patient on the vent. No purposeful movements. Not following commands. On IABP. Afebrile. Still has bloody drainage via left nasal passage. Blood tinged ETT secretions. Decreased. Admitted with myocardial infarction and he was taken for emergent cardiac catheterization and stent. Had cardiac arrest and required intubation and insertion of intraaortic balloon pump. PAST MEDICAL HISTORY: 1. Hyperlipidemia. 2. Asthma. ALLERGIES: NO KNOWN DRUG ALLERGIES. ANTIBIOTICS: 1. Ancef. 2. Levaquin. SOCIAL HISTORY: No tobacco, alcohol or illicit drugs. OBJECTIVE: Vital Signs Date Time Temp Pulse Resp B/P Pulse Ox O2 Delivery O2 Flow Rate FiO2 11/26/16 12:24 105/68 11/26/16 11:00 40 11/26/16 11:00 83/56 11/26/16 11:00 98 11/26/16 11:00 99.6 96 16 128/68 98 11/26/16 11:00 99 Mechanical Ventilator 40 11/26/16 10:56 94 40 11/26/16 10:44 93 40 11/26/16 10:00 105/68 11/26/16 09:00 98/60 11/26/16 08:00 98/68 11/26/16 07:25 97 40 11/26/16 07:00 40 11/26/16 07:00 95/65 11/26/16 07:00 99.1 95 16 108/67 98 11/26/16 07:00 98 11/26/16 07:00 99 Mechanical Ventilator 40 11/26/16 06:00 97/64 11/26/16 05:00 105/8 11/26/16 04:24 99 40 11/26/16 04:00 99.6 91 16 129/70 99 11/26/16 04:00 92 11/26/16 04:00 86/60 11/26/16 03:30 99 Mechanical Ventilator 40 11/26/16 03:30 40 11/26/16 03:00 86/60 11/26/16 02:00 85/53 11/26/16 01:15 98 40 11/26/16 01:00 81/55 11/26/16 00:00 90/58 11/26/16 00:00 92 11/26/16 00:00 99.9 92 16 130/73 98 11/25/16 23:45 40 11/25/16 23:45 98 Mechanical Ventilator 40 11/25/16 23:00 100/66 11/25/16 22:20 97 40 11/25/16 22:00 92/62 11/25/16 21:00 92/60 11/25/16 20:00 93/62 11/25/16 20:00 100.4 100 16 133/73 99 11/25/16 20:00 99 11/25/16 20:00 40 11/25/16 20:00 99 Mechanical Ventilator 40 11/25/16 19:58 97 40 11/25/16 19:00 105/75 11/25/16 18:06 141/62 11/25/16 17:00 100/65 11/25/16 16:15 111/72 11/25/16 16:08 99 40 11/25/16 15:00 99.3 108 16 120/64 99 11/25/16 15:00 98 Mechanical Ventilator 40 11/25/16 15:00 84/55 11/25/16 15:00 40 11/25/16 15:00 87 11/25/16 14:00 85/57 11/25/16 13:01 97 40 11/25/16 13:00 84/58 11/25/16 11/25/16 11/26/16 15:00 23:00 07:00 Intake Total 1030 ml 1483 ml Output Total 3250 ml 2225 ml Balance -2220 ml -742 ml Intake Oral 0 ml 0 ml IV Total 180 ml 431 ml Tube Feeding 600 ml 742 ml Tube Irrigant 250 ml Other 310 ml Output Urine Total 3250 ml 2225 ml Stool Total 0 ml Gastric Drainage Total 0 ml # Bowel Movements 1 Laboratory Tests Test 11/25/16 05:16 White Blood Count 7.2 TH/MM3 Red Blood Count 3.38 MIL/MM3 Hemoglobin 10.5 GM/DL Hematocrit 30.6 % Mean Corpuscular Volume 90.5 FL Mean Corpuscular Hemoglobin 31.1 PG Mean Corpuscular Hemoglobin 34.3 % Concent Red Cell Distribution Width 14.0 % Platelet Count 186 TH/MM3 Mean Platelet Volume 8.4 FL Laboratory Tests Test 11/25/16 05:16 Creatinine 1.31 MG/DL Estimat Glomerular Filtration 67 ML/MIN Rate Microbiology Date/Time Procedure Status Source Growth 11/22/16 20:15 Cancelled Respiratory 11/22/16 20:15 Gram Stain - Final Complete Wound Other 11/22/16 20:15 Wound Culture - Final Complete Staphylococcus Aureus Microbiology Date/Time Procedure Status Source Growth 11/22/16 03:31 Gram Stain - Final Complete Sputum Endotracheal 11/22/16 03:31 Sputum Culture - Final Complete Staphylococcus Aureus 11/22/16 03:31 Urine Culture - Final Complete Urine Catheterized Urine NO GROWTH IN 48 HOURS. 11/22/16 06:05 Aerobic Blood Culture - Preliminary Resulted Blood Peripheral NO GROWTH IN 2 DAYS 11/22/16 06:05 Anaerobic Blood Culture - Preliminary Resulted Blood Peripheral NO GROWTH IN 2 DAYS 11/22/16 06:05 Aerobic Blood Culture - Preliminary Resulted Blood Peripheral NO GROWTH IN 2 DAYS 11/22/16 06:05 Anaerobic Blood Culture - Preliminary Resulted Blood Peripheral NO GROWTH IN 2 DAYS 11/22/16 20:15 Cancelled Respiratory 11/22/16 20:15 Gram Stain - Final Resulted Wound Other 11/22/16 20:15 Wound Culture Resulted Wound Other Pending IMAGING: Chest X-Ray 11/23/16 0600 Signed Impressions: Service Date/Time: Wednesday, November 23, 2016 03:04 - CONCLUSION: Left effusion and basilar airspace disease. Derrick Hagan MD Lower Extremity Ultrasound 11/22/16 0000 Signed Impressions: Service Date/Time: Tuesday, November 22, 2016 19:29 - CONCLUSION: 1. Negative for deep venous thrombosis. Exam somewhat limited on the right side as above. Dominic Bowen MD Liver Ultrasound 11/20/16 0000 Signed Impressions: Service Date/Time: Sunday, November 20, 2016 15:47 - CONCLUSION: The liver is slightly echogenic which maybe due to fatty infiltration and or hepatocellular dysfunction. Kandi Ace MD PHYSICAL EXAMINATION: GENERAL: On the ventilator. HEENT: Conjunctival effusion and erythema. NECK: No swelling or adenopathy. LUNGS: Coarse breath sounds. HEART: Difficult to auscultate because of the intraaortic balloon pump noises. ABDOMEN: Bowel sounds present, soft, Distended. EXTREMITIES: No clubbing or cyanosis or edema. SKIN: No rash. NEUROLOGIC: Unable to fully assess. IMPRESSION: 1. Fever. Post intubation and post cardiac arrest. Temp lower. 2. Post myocardial infarction. 3. Acute respiratory failure. 4. Sinusitis. Staph aureus. 5. Pneumonia - Staph aureus. RECOMMENDATIONS: 1. Continue Ancef. 2. Continue Levaquin. 3. Monitor temperature. 4. Monitor clinical status. Kamar Freire MD Nov 26, 2016 13:01
--- NOTE | 2016-11-26 17:18 | HHI.CCPN ---
Subjective Remarks/Hospital Course 65-year-old gentleman has history of hyperlipidemia and asthma, he awoke, had some intermittent chest pain symptoms, began to become progressively worse over the course of the early afternoon. He came over to [facility], where an EKG showed new left bundle with ST-elevation anterolaterally. He was taken emergently to cardiac catheterization lab where his LAD was stented. At the end of the procedure patients suffered near cardiac arrest requiring intubation intra-aortic balloon pump placement and IV vasopressors. Critical care medicine was consulted to manage ventilatory dependent respiratory failure and assist with medical management. 2: Currently sedated on propofol drip. Remains on Osman-Synephrine at 90 g a minute. Tube feeds have not been initiated. No bowel movement. Remains on intra-aortic balloon pump 1:1 2: Currently sedated on propofol infusion, Versed and fentanyl drips. Remains on Osman-Synephrine at 65 g a minute. Tube feeds currently at 30 cc an hour. No bowel movement. Remains on intra-aortic balloon pump at 1:1 ratio. Subjective 11/22: Tmax 101.1. Currently 99.7. Currently intubated. Osman-Synephrine crease to 15 g per minute. Tube feeds at goal. Remains on intra-aortic balloon pump at 1:1 ratio. 11/23: Remains sedated, orally intubated on mechanical ventilation. Intra-aortic balloon pump remains in place. Transvenous pacer remains in place however has not required pacing for the last few days. 11/24: Remains sedated, orally intubated on mechanical ventilation. Intra-aortic balloon pump in place. Transvenous pacer removed today. 11/25: Remains sedated, orally intubated on mechanical ventilation. Intra-aortic balloon pump in place. Had some epistaxis overnight. Received Lovenox 100 mg 3 AM this morning. I have asked [employer]AW OPERATOR to hold Lovenox after checking with Dr. Rey in v/o epistaxis. 11/26: Remains sedated/encephalopathic, orally intubated on mechanical ventilation. IABP in place. Epistaxis resolved. Lovenox 80 mg every [address] rey. Failed C Pap trial today and 6 minutes getting diaphoretic and tachypneic. Head CT planned. Objective Vital Signs Date Time Temp Pulse Resp B/P Pulse Ox O2 Delivery O2 Flow Rate FiO2 2/9/17 16:00 112/54 11/26/16 15:30 98 40 11/26/16 15:00 98 11/26/16 15:00 99.3 16 11/26/16 15:00 Mechanical Ventilator Intake and Output 11/25/16 11/25/16 11/26/16 08:00 16:00 00:00 Intake Total 1600 ml 1030 ml Output Total 3250 ml 3250 ml Balance -1650 ml -2220 ml Result Diagram: 11/25/16 0516 11/25/16 0516 Imaging Last Impressions Chest X-Ray 11/22/16 0600 Signed Impressions: Service Date/Time: Tuesday, November 22, 2016 03:11 - CONCLUSION: Stable chest x-ray with elevated left hemidiaphragm and atelectasis at the left lung base. Remi Altman MD Liver Ultrasound 11/20/16 0000 Signed Impressions: Service Date/Time: Sunday, November 20, 2016 15:47 - CONCLUSION: The liver is slightly echogenic which maybe due to fatty infiltration and or hepatocellular dysfunction. Kandi Ace MD Objective Remarks GENERAL: 65-year-old Kim male, critically ill currently resting in bed in no acute distress SKIN: Warm and dry. No rash HEENT: Normocephalic. Positive chemosis. PERRL. NECK: Supple, trachea midline. No JVD or lymphadenopathy. CARDIOVASCULAR: Regular rate and rhythm. S1, S2 no S4. IABP 1:1 augmentation RESPIRATORY: Orally intubated on mechanical ventilation Breath sounds equal bilaterally. Distant. GASTROINTESTINAL: Abdomen soft, non-tender, nondistended. Hypoactive bowel sounds. MUSCULOSKELETAL: No significant peripheral edema. Right groin is clean dry and intact with balloon pump/venous sheath Procedures Cardiac catheterization - BMS LAD TVP Urinary Catheter: Yes Assessment to: Continue A/P Problem List: (1) STEMI (ST elevation myocardial infarction) ICD Code: I21.3 Status: Acute (2) Acute respiratory failure ICD Code: J96.00 Status: Acute (3) Cardiogenic shock ICD Code: R57.0 Status: Acute (4) Dyslipidemia ICD Code: E78.5 Status: Acute (5) Obesity hypoventilation syndrome ICD Code: E66.2 Status: Acute Assessment and Plan Neuro/Psych: Patient is currently on Versed/fentanyl drip. Attempt trial of precedex to facilitate vent weaning as patient gets extremely agitated on stopping Versed and fentanyl. Goal of RASS -2 Daily sedation vacation. Head CT without contrast to evaluate for intracranial hemorrhage as patient has been on blood thinners and is encephalopathic. Acetaminophen for fever CV: Acute systolic heart failure Cardiogenic shock Dyslipidemia IABP 1:1 Dr. Minor/cardiology following On Osman-Synephrine 10 g per minute. Lasix 40 mg IV twice a day for systolic heart failure. echoCardiogram- EF 20-25%. Distal anterior hypokinesis. Trace TR. Small pericardial effusion Cardiac catheterization - LAD 100% proximally status post BMS, ramus intermedius 90%. Mid circumflex 90%. OM1 90%. RCA 90% proximally stenosed Placement of transvenous pacemaker. In right femoral region, pacer wire removed on 11/24. Previously on cangrelor drip - transition to Plavix loaded with 600 mg yesterday, currently at 75 mg daily, Lovenox 80 mg subcutaneous daily subcutaneously twice a day for full anticoagulation. CT surgery consultation - no intervention planned Continue with aspirin 81 mg by mouth daily. On Lipitor 40 mg by mouth daily for dyslipidemia. On lovastatin 10 mg by mouth daily at home. Lipid panel within normal limits. Resp: Acute respiratory failure Allergic rhinitis PRVC16/600/10/22/ Ventilator bundle Duonebs every 4 hours and as needed Spontaneous breathing trials to decide extubation. On Vicenta/Claritin home. This is been held GI: Transaminitis Elevated CPK Continue tube feeds of Jevity 1.5 goal 55 cc an hour. Protonix for GI prophylaxis Colace/Senokot twice daily for bowel regimen CPK and LFTs are trending downward. Liver ultrasound revealed likely MCCALLUM/hepatitis panel pending : Madsen has been placed for accurate I's and O's in a critically ill patient Endo: Sliding-scale insulin with Accu-Cheks to maintain euglycemia. Low regimen. Every 6 hours. Renal: Creatinine currently within normal limits. Monitor urine output closely. Heme: Normocytic anemia CBC essentially stable Recheck in AM. Heparin drip and cangrelor drip off. Plavix loading 600 mg 1 on 11/22 and started 75 mg daily maintenance dose ID: Pyrexia Blood cultures 2, sputum and urine ordered 11/22. Gram-positive cocci in pairs on sputum. On Ancef, levaquin. Infectious disease following. FEN: Hypopotassemia - resolving Start on scheduled potassium 20 mEq twice a day while on Lasix. MSK: Range of motion therapy only at this present time Access - Peripheral IVs. Central line if indicated - Right radial artery line, venous sheath, right groin/IABP Prophylaxis - GI - Protonix - DVT - lovenox 100 mg twice a day for full anticoagulation Discussed with Dr. Rey on 11/26. Discussed with patient's at bedside 11/26 Critical Care: The total critical care time was 40 minutes. Time to perform other separately billable procedures was not included in the critical care time. Problem Qualifiers (1) STEMI (ST elevation myocardial infarction): Qualified Code: I21.02 - ST elevation myocardial infarction involving left anterior descending (LAD) coronary artery Anibal Finch MD Nov 26, 2016 17:18
[2016-11-26] MEDS ORDERED: FUROSEMIDE 100 MG/10 ML VIAL IV PUSH SCH (18:00)
[2016-11-26] MEDS ORDERED: EPINEPHrine HCL (1:10,000) 1 MG/10 ML SYRINGE ONE (18:15)
--- NOTE | 2016-11-26 19:00 | RADRPT ---
EXAM DATE/TIME: 11/26/2016 18:27 [facility] COMPARISON: No previous studies available for comparison. INDICATIONS : Encephalopathy; evaluate for ICH. RADIATION DOSE: 29.19 CTDIvol (mGy) MEDICAL HISTORY : Asthma SURGICAL HISTORY : None. ENCOUNTER: Initial ACUITY: 1 day PAIN SCALE: Non-responsive LOCATION: cranial TECHNIQUE: Multiple contiguous axial images were obtained of the head. Using automated exposure control and adj ustment of the mA and/or kV according to patient size, radiation dose was kept as low as reasonably a chievable to obtain optimal diagnostic quality images. FINDINGS: CEREBRUM: The ventricles are normal for age. No evidence of midline shift, mass lesion, hemorrhage or acute in farction. No extra-axial fluid collections are seen. POSTERIOR FOSSA: The cerebellum and brainstem are intact. The 4th ventricle is midline. The cerebellopontine angle i s unremarkable. EXTRACRANIAL: The visualized portion of the orbits is intact. There is mucosal thickening in some fluid in the ethm oid air cells, sphenoid sinus and maxillary sinuses. SKULL: The calvaria is intact. No evidence of skull fracture. CONCLUSION: 1. No acute intracranial abnormalities. Sinus disease as above. Dominic Bowen MD on November 26, 2016 at 18:57 Board Certified Radiologist. This report was verified electronically.
[2016-11-26] MEDS: RESP: ALBUTEROL 2.5 MG/IPRATROPIUM 0.5 MG NEB (PRN) NEB (21:04)
[2016-11-26] MEDS: ATORVASTATIN 40 MG TAB PO SCH (21:21)
[2016-11-27] VITALS (18 sets, daily range): BP systolic 81–119; BP diastolic 54–76; PULSE 77–93; RESP 16; TEMP 99.5–100.1; O2SAT 94–98
[2016-11-27] MEDS: DEXMEDETOMIDINE INJ 50 ML IV SCH ×6 (02:09→22:35)
[2016-11-27] MEDS: ENOXAPARIN SODIUM 100 MG/ML SYRINGE SQ SCH ×2 (02:47→16:18)
[2016-11-27] MEDS: RESP: ALBUTEROL 2.5 MG/IPRATROPIUM 0.5 MG NEB (PRN) NEB ×2 (04:07→07:22)
[2016-11-27 04:13] LABS: AUTOMATED NEUTROPHIL # 6.9 TH/MM3 (1.8-7.7); BASOPHIL # 0.1 TH/MM3 (0-0.2); BASOPHIL % 0.9 % (0.0-2.0); EOSINOPHIL # 0.7 TH/MM3 (0-0.4); EOSINOPHIL % 6.6 % (0.0-4.0); HEMATOCRIT 34.2 % (39.0-51.0); HEMO FLAGS DIFF FINAL; LYMPH % 10.1 % (9.0-44.0); MEAN CELL VOLUME 90.1 FL (80.0-100.0); MEAN CORPUSCULAR HEMOGLOBIN 30.9 PG (27.0-34.0); MEAN CORPUSCULAR HGB CONC 34.3 % (32.0-36.0); MONO % 12.3 % (0.0-8.0); NEUT % 70.1 % (16.0-70.0); PLATELET COUNT 264 TH/MM3 (150-450); RED BLOOD COUNT 3.79 MIL/MM3 (4.50-5.90); RED CELL DISTRIBUTION WIDTH 13.5 % (11.6-17.2); WHITE BLOOD COUNT 9.8 TH/MM3 (4.0-11.0)
--- NOTE | 2016-11-27 04:26 | RADRPT ---
EXAM DATE/TIME: 11/27/2016 03:09 [facility] COMPARISON: CHEST SINGLE AP, November 23, 2016, 3:04. INDICATIONS : Shortness of breath. MEDICAL HISTORY : Myocardial infarction. Asthma. SURGICAL HISTORY : Intra-aortic balloon pump. ENCOUNTER: Subsequent ACUITY: 1 week PAIN SCORE: Non-responsive. LOCATION: Bilateral chest FINDINGS: Left base consolidation is modestly worse in the interim. A small left pleural effusion is suspected as well. Right lung remains reasonably clear. No pneumothorax seen. Heart size stable, per limits of normal. Endotracheal tube tip is approximately 2.5 cm above the ba. There is a nasogastric tube coiled in the stomach. CONCLUSION: Slight worsening left base consolidation. Remi Beebe MD on November 27, 2016 at 4:24 Board Certified Radiologist. This report was verified electronically.
[2016-11-27 04:34] LABS: ALKALINE PHOSPHATASE 175 U/L (45-117); ALT (GPT) 153 U/L (12-78); ANION GAP 10 MEQ/L (5-15); AST (GOT) 181 U/L (15-37); BICARBONATE 30.4 MEQ/L (21.0-32.0); BLOOD UREA NITROGEN 44 MG/DL (7-18); CHLORIDE 95 MEQ/L (98-107); GLOMERULAR FILTRATION RATE 56 ML/MIN (>89); MAGNESIUM 2.9 MG/DL (1.5-2.5); POTASSIUM 4.5 MEQ/L (3.5-5.1); SODIUM (NA) 135 MEQ/L (136-145); TOTAL BILIRUBIN ADULT 0.7 MG/DL (0.2-1.0)
[2016-11-27] MEDS: INSULIN NovoLIN REGULAR SUPPLEMENTAL SCALE SQ SCH ×4 (06:36→18:11)
--- NOTE | 2016-11-27 07:27 | HHI.CCPN ---
Subjective Remarks/Hospital Course 65-year-old gentleman has history of hyperlipidemia and asthma, he awoke, had some intermittent chest pain symptoms, began to become progressively worse over the course of the early afternoon. He came over to [facility], where an EKG showed new left bundle with ST-elevation anterolaterally. He was taken emergently to cardiac catheterization lab where his LAD was stented. At the end of the procedure patients suffered near cardiac arrest requiring intubation intra-aortic balloon pump placement and IV vasopressors. Critical care medicine was consulted to manage ventilatory dependent respiratory failure and assist with medical management. 2: Currently sedated on propofol drip. Remains on Osman-Synephrine at 90 g a minute. Tube feeds have not been initiated. No bowel movement. Remains on intra-aortic balloon pump 1:1 11/21: Currently sedated on propofol infusion, Versed and fentanyl drips. Remains on Osman-Synephrine at 65 g a minute. Tube feeds currently at 30 cc an hour. No bowel movement. Remains on intra-aortic balloon pump at 1:1 ratio. Subjective 11/22: Tmax 101.1. Currently 99.7. Currently intubated. Osman-Synephrine crease to 15 g per minute. Tube feeds at goal. Remains on intra-aortic balloon pump at 1:1 ratio. 11/23: Remains sedated, orally intubated on mechanical ventilation. Intra-aortic balloon pump remains in place. Transvenous pacer remains in place however has not required pacing for the last few days. 11/24: Remains sedated, orally intubated on mechanical ventilation. Intra-aortic balloon pump in place. Transvenous pacer removed today. 11/25: Remains sedated, orally intubated on mechanical ventilation. Intra-aortic balloon pump in place. Had some epistaxis overnight. Received Lovenox 100 mg 3 AM this morning. I have asked [employer] to hold Lovenox after checking with Dr. Rey in v/o epistaxis. 11/26: Remains sedated/encephalopathic, orally intubated on mechanical ventilation. IABP in place. Epistaxis resolved. Lovenox 80 mg every [address] rey. Failed C Pap trial today and 6 minutes getting diaphoretic and tachypneic. Head CT planned. 11/27 Patient remains sedated with Versed and Precedex and intubated. Tmax 100.2 last night. Did not tolerate CPAP trials yesterday as h became tachycardic On IABP 1:1. On PRVC/AC RR 16, TV 600, IT: 1.0, PEEP:5 and FIO2 40%. Objective Vital Signs Date Time Temp Pulse Resp B/P Pulse Ox O2 Delivery O2 Flow Rate FiO2 11/27/16 06:00 82/59 11/27/16 04:07 97 40 11/27/16 04:00 100.1 83 16 11/27/16 03:48 Mechanical Ventilator Intake and Output 11/26/16 11/26/16 11/27/16 08:00 16:00 00:00 Intake Total 1483 ml 1320 ml Output Total 2225 ml 2250 ml Balance -742 ml -930 ml Result Diagram: 11/27/16 0325 11/27/16 0325 Other Results Laboratory Tests Test 11/27/16 03:25 White Blood Count 9.8 TH/MM3 Red Blood Count 3.79 MIL/MM3 Hemoglobin 11.7 GM/DL Hematocrit 34.2 % Mean Corpuscular Volume 90.1 FL Mean Corpuscular Hemoglobin 30.9 PG Mean Corpuscular Hemoglobin 34.3 % Concent Red Cell Distribution Width 13.5 % Platelet Count 264 TH/MM3 Mean Platelet Volume 8.2 FL Neutrophils (%) (Auto) 70.1 % Lymphocytes (%) (Auto) 10.1 % Monocytes (%) (Auto) 12.3 % Eosinophils (%) (Auto) 6.6 % Basophils (%) (Auto) 0.9 % Neutrophils # (Auto) 6.9 TH/MM3 Lymphocytes # (Auto) 1.0 TH/MM3 Monocytes # (Auto) 1.2 TH/MM3 Eosinophils # (Auto) 0.7 TH/MM3 Basophils # (Auto) 0.1 TH/MM3 CBC Comment DIFF FINAL Differential Comment Sodium Level 135 MEQ/L Potassium Level 4.5 MEQ/L Chloride Level 95 MEQ/L Carbon Dioxide Level 30.4 MEQ/L Anion Gap 10 MEQ/L Blood Urea Nitrogen 44 MG/DL Creatinine 1.51 MG/DL Estimat Glomerular Filtration 56 ML/MIN Rate Random Glucose 163 MG/DL Calcium Level 9.3 MG/DL Magnesium Level 2.9 MG/DL Total Bilirubin 0.7 MG/DL Aspartate Amino Transf 181 U/L (AST/SGOT) Alanine Aminotransferase 153 U/L (ALT/SGPT) Alkaline Phosphatase 175 U/L Total Protein 8.0 GM/DL Albumin 2.2 GM/DL Imaging Last Impressions Chest X-Ray 11/27/16 0600 Signed Impressions: Service Date/Time: Sunday, November 27, 2016 03:09 - CONCLUSION: Slight worsening left base consolidation. Remi Beebe MD Head CT 11/26/16 0000 Signed Impressions: Service Date/Time: November 18:27 - CONCLUSION: 1. No acute intracranial abnormalities. Sinus disease as above. Dominic Bowen MD Lower Extremity Ultrasound 11/22/16 0000 Signed Impressions: Service Date/Time: Tuesday, November 22, 2016 19:29 - CONCLUSION: 1. Negative for deep venous thrombosis. Exam somewhat limited on the right side as above. Dominic Bowen MD Liver Ultrasound 11/20/16 0000 Signed Impressions: Service Date/Time: Sunday, November 20, 2016 15:47 - CONCLUSION: The liver is slightly echogenic which maybe due to fatty infiltration and or hepatocellular dysfunction. Kandi Ace MD Objective Remarks GENERAL: 65-year-old Kim male intubated and sedated, SKIN: Warm and dry. No rash HEENT: Normocephalic. Positive chemosis. PERRL. NECK: Supple, trachea midline. No JVD or lymphadenopathy. CARDIOVASCULAR: Regular rate and rhythm. S1, S2 no S4. IABP 1:1 augmentation RESPIRATORY: Orally intubated on mechanical ventilation Breath sounds equal bilaterally. GASTROINTESTINAL: Abdomen soft, non-tender, nondistended. Hypoactive bowel sounds. MUSCULOSKELETAL: No significant peripheral edema. Right groin is clean dry and intact with balloon pump/venous sheath Neuro: Sedated, intubated Procedures Cardiac catheterization - BMS LAD TVP A/P Problem List: (1) STEMI (ST elevation myocardial infarction) ICD Code: I21.3 Status: Acute (2) Acute respiratory failure ICD Code: J96.00 Status: Acute (3) Cardiogenic shock ICD Code: R57.0 Status: Acute (4) Dyslipidemia ICD Code: E78.5 Status: Acute (5) Obesity hypoventilation syndrome ICD Code: E66.2 Status: Acute Assessment and Plan Neuro/Psych: On Versed/Precedex drip. Monitor neuro statis, daily sedation vacation. Goal of RASS -2 11/26 CT brain: No acute intracranial abnormalities Acetaminophen for fever CV: Acute systolic heart failure Cardiogenic shock Dyslipidemia IABP 1:1 Dr. Rey/cardiology following Off Neosyn monitor HR and BP keep MAP>65mmHg Lasix 40 mg IV twice a day for systolic heart failure. Echo- EF 20-25%. Distal anterior hypokinesis. Trace TR. Small pericardial effusion Cardiac catheterization - LAD 100% proximally status post BMS, ramus intermedius 90%. Mid circumflex 90%. OM1 90%. RCA 90% proximally stenosed Placement of transvenous pacemaker. In right femoral region, pacer wire removed on 11/24. CT surgery consultation - no intervention planned Continue with aspirin 81 mg daily, Lipitor 40mg qhs, Plavix 75mg daily Resp: Acute respiratory failure Allergic rhinitis PRVC16/600/10/22/39 Continue with vent support keep sat >92% Ventilator bundle, Duonebs every 4 hours and as needed Continue with SBT daily as yulissa. GI: Transaminitis Elevated CPK Continue tube feeds of Jevity 1.5 goal 50 cc an hour. Protonix for GI prophylaxis Colace/Senokot twice daily for bowel regimen Monitor LFTs Liver ultrasound revealed likely MCCALLUM/hepatitis panel negative : Monitor renal function, I/O's, electrolytes replacement per protocol. Decrease Lasix 40mg IV daily ( worsening renal function) Cr: 1.51 from 1.31, UO: 3200ml in 24 hrs Endo: Sliding-scale insulin with Accu-Cheks to maintain euglycemia. Low regimen. Every 6 hours. Heme: Normocytic anemia Monitor CBC, on FeSO4 325 ID: Sputum cx 11/22: Staph Aureus Continue with abx per ID ( Cefazolin, Levaquin)monitor or signs of infections ( Fever, WBC) Check sputum cx, UA with cx if indicated MSK: Range of motion therapy only at this present time Access - Peripheral IVs. Central line if indicated - Right radial artery line, venous sheath, right groin/IABP Prophylaxis - GI - Protonix - DVT - Lovenox 80mg BID Critical Care: The total critical care time was 30 minutes. Time to perform other separately billable procedures was not included in the critical care time. Problem Qualifiers (1) STEMI (ST elevation myocardial infarction): Qualified Code: I21.02 - ST elevation myocardial infarction involving left anterior descending (LAD) coronary artery Katerine Hammer MD Nov 27, 2016 07:27
[2016-11-27] MEDS: RESP: ALBUTEROL 2.5 MG/IPRATROPIUM 0.5 MG NEB (SCH) NEB ×3 (07:45→21:32)
[2016-11-27] MEDS: FUROSEMIDE 40 MG/4 ML VIAL IV PUSH SCH (08:53)
[2016-11-27] MEDS: ASPIRIN 81 MG CHEW TAB PO SCH (08:54)
[2016-11-27] MEDS: FERROUS SULFATE 325 MG (65 MG ELEMENTAL IRON) TAB PO SCH ×2 (08:54→21:23)
[2016-11-27] MEDS: POTASSIUM CL 40 MEQ/30 ML LIQ UDC NG SCH ×2 (08:54→21:22)
[2016-11-27] MEDS: DOCUSATE SODIUM 100 MG/10 ML UDC PO SCH ×2 (08:55→21:22)
[2016-11-27] MEDS: SENNOSIDES SYRUP 8.8 MG/5 ML CUP PO/TUBE SCH ×2 (08:55→21:22)
[2016-11-27] MEDS: CLOPIDOGREL 75 MG TAB PO SCH (08:55)
[2016-11-27] MEDS: POLYETHYLENE GLYCOL 17 GM PKG PO/NG SCH ×2 (08:55→21:23)
[2016-11-27] MEDS: GENTAMICIN SULFATE 0.3% OPHT OINT 3.5 GM TUBE EACH EYE SCH ×3 (08:56→18:10)
[2016-11-27] MEDS: ARTIFICIAL TEARS OPTH OINT 3.5 APPLIC/3.5 GM TUBO EACH EYE SCH ×2 (08:56→22:17)
[2016-11-27] MEDS: CHLORHEXIDINE 0.12% (ORAL KIT) 15 ML CUP MT SCH ×2 (08:56→22:16)
--- NOTE | 2016-11-27 09:13 | PD.CARD.PN ---
Subjective Subjective Remarks intubated, sedated, mechanically ventilated Objective Medications Current Medications Medications (Trade) Dose Ordered Sig/Syed Route Start Time Stop Time Status Last Admin (NS Flush) 2 ml UNSCH PRN IVF 11/19/16 17:30 11/21/16 21:05 (Morphine Inj) 2 mg Q30M PRN IV PUSH 11/19/16 20:15 (Aspirin Chew) 81 mg DAILY PO 11/20/16 09:00 11/27/16 08:54 (Atropine Inj) 0.5 mg UNSCH PRN IV 11/19/16 20:15 (Reglan Inj) 10 mg Q4H PRN IV 11/19/16 20:15 (Zofran Inj) 4 mg Q4H PRN IV 11/19/16 20:15 Atorvastatin Calcium 40 mg 40 mg HS PO 11/19/16 21:00 11/26/16 21:21 (Neosynephrine Inj/D5W 500 ml Inj) 500 ml @ 0 mls/hr TITRATE IV 11/19/16 21:15 11/24/16 18:50 Terbutaline Sulfate 1 mg 1 mg UNSCH PRN SQ 11/19/16 20:15 (Diprivan 1000 Mg/100ml Inj) 100 ml @ 0 mls/hr TITRATE IV 11/20/16 01:00 11/23/16 06:07 Chlorhexidine Gluconate 15 ml 15 ml BID@08,20 MT 11/20/16 20:00 11/27/16 08:56 Midazolam HCl 100 ml @ 0 mls/hr TITRATE IV 11/20/16 12:30 11/26/16 12:41 Fentanyl Citrate 250 ml @ 0 mls/hr TITRATE IV 11/20/16 12:30 11/26/16 12:39 Potassium Chloride 100 ml @ 50 mls/hr Q2H PRN IV 11/20/16 12:30 (KCl 20 Meq Premix Inj) 100 ml @ 50 mls/hr Q2H PRN IV 11/20/16 12:30 Potassium Chloride 40 meq 40 meq UNSCH PRN PO/TUBE 11/20/16 12:30 Potassium Chloride 100 ml @ 25 mls/hr UNSCH PRN IV 11/20/16 12:30 Potassium Chloride 100 ml @ 50 mls/hr Q2H PRN IV 11/20/16 12:30 (Magnesium Sulfate Inj/NS Inj) 100 ml @ 50 mls/hr UNSCH PRN IV 11/20/16 12:30 Magnesium Oxide 800 mg 800 mg UNSCH PRN PO 11/20/16 12:30 (Magnesium Sulfate Inj/NS Inj) 100 ml @ 50 mls/hr UNSCH PRN IV 11/20/16 12:30 Potassium Phosphate 2000 mg 2,000 mg Q4H PRN PO 11/20/16 12:30 (Sodium Phosphate Inj/NS 250 ml Inj) 250 ml @ 42 mls/hr UNSCH PRN IV 11/20/16 12:30 (KCl 40 Meq/30 ml Liq) 40 meq UNSCH PRN PO/TUBE 11/20/16 12:30 Potassium Phosphate 2000 mg 2,000 mg UNSCH PRN PO/TUBE 11/20/16 12:30 (Potassium Phosphate Inj/NS 250 ml Inj) 260 ml @ 42 mls/hr UNSCH PRN IV 11/20/16 12:30 (Colace Liq) 100 mg Q12HR PO 11/20/16 21:00 11/27/16 08:55 (Lacrilube Opht Oint) 1 applic Q12HR EACH EYE 11/20/16 21:00 11/27/16 08:56 (D50w (Vial) Inj) 25 ml UNSCH PRN IV PUSH 11/20/16 12:30 (Glucagon Inj) 1 mg UNSCH PRN OTHER 11/20/16 12:30 (NovoLIN R SUPPLEMENTAL SCALE) 1 Q6HR SQ 11/20/16 18:00 11/27/16 06:36 (Protonix Inj) 40 mg Q24H IV PUSH 11/20/16 13:00 11/26/16 12:37 (Plavix) 75 mg DAILY PO 11/22/16 09:00 11/27/16 08:55 (Senna Liq) 8.8 mg BID PO/TUBE 11/21/16 21:00 11/27/16 08:55 (Miralax) 17 gm BID PO/NG 11/21/16 21:00 11/27/16 08:55 Potassium Chloride 20 meq 20 meq Q12HR NG 11/21/16 21:00 11/27/16 08:54 Levofloxacin/ Dextrose 100 ml @ 100 mls/hr Q24H IV 11/23/16 12:00 11/26/16 12:38 (Precedex Inj) 50 ml @ 0 mls/hr TITRATE IV 11/25/16 10:30 11/27/16 08:56 Gentamicin Sulfate 1 applic 1 applic TID EACH EYE 11/25/16 10:45 11/27/16 08:56 (Ancef Inj/NS Inj) 100 ml @ 200 mls/hr Q8H IV 11/25/16 12:00 11/27/16 03:46 (Ferrous Sulfate) 325 mg BID PO 11/25/16 21:00 11/27/16 08:54 (Lovenox Inj) 80 mg Q12H SQ 11/26/16 15:00 11/27/16 02:47 (Lasix Inj) 40 mg DAILY IV PUSH 11/27/16 09:00 11/27/16 08:53 Vital Signs / I&O Vital Signs Date Time Temp Pulse Resp B/P Pulse Ox O2 Delivery O2 Flow Rate FiO2 11/27/16 07:26 97 40 11/27/16 06:00 82/59 11/27/16 05:00 73/56 11/27/16 04:07 97 40 11/27/16 04:00 79/56 11/27/16 04:00 100.1 83 16 94/68 97 11/27/16 03:48 40 11/27/16 03:48 97 Mechanical Ventilator 40 11/27/16 03:15 92 11/27/16 03:00 88/61 11/27/16 02:00 78/54 11/27/16 01:50 97 40 11/27/16 01:00 79/57 11/27/16 00:00 40 11/27/16 00:00 98 Mechanical Ventilator 40 11/27/16 00:00 79/57 11/27/16 00:00 99.5 77 16 100/71 98 11/26/16 23:30 80 11/26/16 23:00 82/55 11/26/16 22:15 97 40 11/26/16 22:00 75/53 11/26/16 21:04 97 40 11/26/16 21:00 74/54 11/26/16 20:00 40 11/26/16 20:00 97 Mechanical Ventilator 40 11/26/16 20:00 100.2 81 16 92/63 97 11/26/16 20:00 74/50 11/26/16 20:00 90 11/26/16 19:00 79/56 11/26/16 18:15 98 50 11/26/16 18:00 118/65 11/26/16 17:24 98/61 11/26/16 16:00 112/54 11/26/16 15:30 98 40 11/26/16 15:00 40 11/26/16 15:00 83/56 11/26/16 15:00 98 11/26/16 15:00 99.3 96 16 103/53 98 11/26/16 15:00 99 Mechanical Ventilator 40 11/26/16 14:00 98/62 11/26/16 13:25 95 40 11/26/16 13:00 103/53 11/26/16 12:24 105/68 11/26/16 11:00 40 11/26/16 11:00 83/56 11/26/16 11:00 98 11/26/16 11:00 99.6 96 16 128/68 98 11/26/16 11:00 99 Mechanical Ventilator 40 11/26/16 10:56 94 40 11/26/16 10:44 93 40 11/26/16 10:00 105/68 I/O 11/26/16 11/26/16 11/26/16 11/27/16 11/27/16 11/27/16 07:00 15:00 23:00 07:00 15:00 23:00 Intake Total 1483 ml 1320 ml 1801 ml Output Total 2225 ml 2250 ml 950 ml Balance -742 ml -930 ml 851 ml Intake Oral 0 ml 0 ml 0 ml IV Total 431 ml 520 ml 426 ml Tube Feeding 742 ml 600 ml 1075 ml Tube Irrigant 200 ml Other 310 ml 300 ml Output Urine Total 2225 ml 2250 ml 950 ml # Bowel Movements 1 1 1 Physical Exam GENERAL: intubated, sedated, mechanically ventilated SKIN: Warm and dry. HEAD: Atraumatic. Normocephalic. ENT: No nasal bleeding or discharge. NECK: Trachea midline. No JVD. CARDIOVASCULAR: Regular rate and rhythm. RESPIRATORY: No accessory muscle use. Breath sounds clear equally, distant GASTROINTESTINAL: Abdomen soft, non-tender, nondistended. MUSCULOSKELETAL: Extremities without clubbing, cyanosis, or edema. No obvious deformities. NEUROLOGICAL:.sedated Laboratory Laboratory Tests Test 11/27/16 03:25 White Blood Count 9.8 TH/MM3 Red Blood Count 3.79 MIL/MM3 Hemoglobin 11.7 GM/DL Hematocrit 34.2 % Mean Corpuscular Volume 90.1 FL Mean Corpuscular Hemoglobin 30.9 PG Mean Corpuscular Hemoglobin 34.3 % Concent Red Cell Distribution Width 13.5 % Platelet Count 264 TH/MM3 Mean Platelet Volume 8.2 FL Neutrophils (%) (Auto) 70.1 % Lymphocytes (%) (Auto) 10.1 % Monocytes (%) (Auto) 12.3 % Eosinophils (%) (Auto) 6.6 % Basophils (%) (Auto) 0.9 % Neutrophils # (Auto) 6.9 TH/MM3 Lymphocytes # (Auto) 1.0 TH/MM3 Monocytes # (Auto) 1.2 TH/MM3 Eosinophils # (Auto) 0.7 TH/MM3 Basophils # (Auto) 0.1 TH/MM3 CBC Comment DIFF FINAL Differential Comment Sodium Level 135 MEQ/L Potassium Level 4.5 MEQ/L Chloride Level 95 MEQ/L Carbon Dioxide Level 30.4 MEQ/L Anion Gap 10 MEQ/L Blood Urea Nitrogen 44 MG/DL Creatinine 1.51 MG/DL Estimat Glomerular Filtration 56 ML/MIN Rate Random Glucose 163 MG/DL Calcium Level 9.3 MG/DL Magnesium Level 2.9 MG/DL Total Bilirubin 0.7 MG/DL Aspartate Amino Transf 181 U/L (AST/SGOT) Alanine Aminotransferase 153 U/L (ALT/SGPT) Alkaline Phosphatase 175 U/L Total Protein 8.0 GM/DL Albumin 2.2 GM/DL Imaging Last Impressions Chest X-Ray 11/27/16 0600 Signed Impressions: Service Date/Time: Sunday, November 27, 2016 03:09 - CONCLUSION: Slight worsening left base consolidation. Remi Beebe MD Head CT 11/26/16 0000 Signed Impressions: Service Date/Time: November 18:27 - CONCLUSION: 1. No acute intracranial abnormalities. Sinus disease as above. Dominic Bowen MD Lower Extremity Ultrasound 11/22/16 0000 Signed Impressions: Service Date/Time: Tuesday, November 22, 2016 19:29 - CONCLUSION: 1. Negative for deep venous thrombosis. Exam somewhat limited on the right side as above. Dominic Bowen MD Liver Ultrasound 11/20/16 0000 Signed Impressions: Service Date/Time: Sunday, November 20, 2016 15:47 - CONCLUSION: The liver is slightly echogenic which maybe due to fatty infiltration and or hepatocellular dysfunction. Kandi Ace MD Assessment and Plan Problem List: (1) STEMI (ST elevation myocardial infarction) (2) Cardiogenic shock (3) Dyslipidemia (4) ventilatory dependent resp failure (5) Elevated LFTs (6) Sinusitis Assessment and Plan 65 yo AAM with STEMI on 11/19/16 s/p PCI LAD who developed cardiogenic shock with IABP placed now intubated, sedated and mechanically ventilated. hemodynamically stable; will attempt to wean IABP 1:2 augmentation over the weekend CHF- diuresing well, slightly worsening L base consolidation CT head neg epistaxis - resolved, cont Lovenox 40mg IV BID creatinine 1.5 consider tracheostomy placement Problem Qualifiers (1) STEMI (ST elevation myocardial infarction): Qualified Code: I21.02 - ST elevation myocardial infarction involving left anterior descending (LAD) coronary artery Radha Sr Nov 27, 2016 09:13
[2016-11-27 11:21] LABS: BLOOD, URINE MOD (NEG); COMMENT (UR) CULT NOT INDICATED; CULTURE IF INDICATED CULT NOT INDICATED; GLUCOSE,URINE NEG (NEG); KETONE, URINE NEG (NEG); MUCUS URINE FEW /lpf (OCC); NITRITE,URINE NEG (NEG); PH, URINE 6.5 (5.0-8.5); URINE COLOR LIGHT-YELLOW (YELLW/STRAW)
--- NOTE | 2016-11-27 11:44 | HHI.IDPN ---
Note Infectious Disease Note Patient on the vent. On CPAP. Sedation being weaned. Squeezes hand per at bedside. On IABP. Temp spike. Phillip ETT secretions. Decreased. BP stable. LFT increased. Repeat sputum culture pending. Admitted with myocardial infarction and he was taken for emergent cardiac catheterization and stent. Had cardiac arrest and required intubation and insertion of intraaortic balloon pump. PAST MEDICAL HISTORY: 1. Hyperlipidemia. 2. Asthma. ALLERGIES: NO KNOWN DRUG ALLERGIES. ANTIBIOTICS: 1. Ancef. 2. Levaquin. SOCIAL HISTORY: No tobacco, alcohol or illicit drugs. OBJECTIVE: Vital Signs Date Time Temp Pulse Resp B/P Pulse Ox O2 Delivery O2 Flow Rate FiO2 11/27/16 09:41 97 40 11/27/16 09:40 40 11/27/16 08:00 91 11/27/16 08:00 40 11/27/16 08:00 97 Mechanical Ventilator 40 11/27/16 07:26 97 40 11/27/16 06:00 82/59 11/27/16 05:00 73/56 11/27/16 04:07 97 40 11/27/16 04:00 79/56 11/27/16 04:00 100.1 83 16 94/68 97 11/27/16 03:48 40 11/27/16 03:48 97 Mechanical Ventilator 40 11/27/16 03:15 92 11/27/16 03:00 88/61 11/27/16 02:00 78/54 11/27/16 01:50 97 40 11/27/16 01:00 79/57 11/27/16 00:00 40 11/27/16 00:00 98 Mechanical Ventilator 40 11/27/16 00:00 79/57 11/27/16 00:00 99.5 77 16 100/71 98 11/26/16 23:30 80 11/26/16 23:00 82/55 11/26/16 22:15 97 40 11/26/16 22:00 75/53 11/26/16 21:04 97 40 11/26/16 21:00 74/54 11/26/16 20:00 40 11/26/16 20:00 97 Mechanical Ventilator 40 11/26/16 20:00 100.2 81 16 92/63 97 11/26/16 20:00 74/50 11/26/16 20:00 90 2/9/17 19:00 79/56 11/26/16 18:15 98 50 11/26/16 18:00 118/65 11/26/16 17:24 98/61 11/26/16 16:00 112/54 11/26/16 15:30 98 40 11/26/16 15:00 40 11/26/16 15:00 83/56 11/26/16 15:00 98 11/26/16 15:00 99.3 96 16 103/53 98 11/26/16 15:00 99 Mechanical Ventilator 40 11/26/16 14:00 98/62 11/26/16 13:25 95 40 11/26/16 13:00 103/53 11/26/16 12:24 105/68 11/26/16 11/26/16 11/27/16 15:00 23:00 07:00 Intake Total 1320 ml 1801 ml Output Total 2250 ml 950 ml Balance -930 ml 851 ml Intake Oral 0 ml 0 ml IV Total 520 ml 426 ml Tube Feeding 600 ml 1075 ml Tube Irrigant 200 ml Other 300 ml Output Urine Total 2250 ml 950 ml # Bowel Movements 1 1 Laboratory Tests Test 11/27/16 03:25 White Blood Count 9.8 TH/MM3 Red Blood Count 3.79 MIL/MM3 Hemoglobin 11.7 GM/DL Hematocrit 34.2 % Mean Corpuscular Volume 90.1 FL Mean Corpuscular Hemoglobin 30.9 PG Mean Corpuscular Hemoglobin 34.3 % Concent Red Cell Distribution Width 13.5 % Platelet Count 264 TH/MM3 Mean Platelet Volume 8.2 FL Neutrophils (%) (Auto) 70.1 % Lymphocytes (%) (Auto) 10.1 % Monocytes (%) (Auto) 12.3 % Eosinophils (%) (Auto) 6.6 % Basophils (%) (Auto) 0.9 % Neutrophils # (Auto) 6.9 TH/MM3 Lymphocytes # (Auto) 1.0 TH/MM3 Monocytes # (Auto) 1.2 TH/MM3 Eosinophils # (Auto) 0.7 TH/MM3 Basophils # (Auto) 0.1 TH/MM3 CBC Comment DIFF FINAL Differential Comment Laboratory Tests Test 11/27/16 03:25 Sodium Level 135 MEQ/L Potassium Level 4.5 MEQ/L Chloride Level 95 MEQ/L Carbon Dioxide Level 30.4 MEQ/L Anion Gap 10 MEQ/L Blood Urea Nitrogen 44 MG/DL Creatinine 1.51 MG/DL Estimat Glomerular Filtration 56 ML/MIN Rate Random Glucose 163 MG/DL Calcium Level 9.3 MG/DL Magnesium Level 2.9 MG/DL Total Bilirubin 0.7 MG/DL Aspartate Amino Transf 181 U/L (AST/SGOT) Alanine Aminotransferase 153 U/L (ALT/SGPT) Alkaline Phosphatase 175 U/L Total Protein 8.0 GM/DL Albumin 2.2 GM/DL Microbiology Date/Time Procedure Status Source Growth 11/27/16 10:00 Gram Stain Received Sputum Endotracheal Pending 11/27/16 10:00 Sputum Culture Received Sputum Endotracheal Pending Microbiology Date/Time Procedure Status Source Growth 11/22/16 20:15 Cancelled Respiratory 11/22/16 20:15 Gram Stain - Final Complete Wound Other 11/22/16 20:15 Wound Culture - Final Complete Staphylococcus Aureus Microbiology Date/Time Procedure Status Source Growth 11/22/16 03:31 Gram Stain - Final Complete Sputum Endotracheal 11/22/16 03:31 Sputum Culture - Final Complete Staphylococcus Aureus 11/22/16 03:31 Urine Culture - Final Complete Urine Catheterized Urine NO GROWTH IN 48 HOURS. 11/22/16 06:05 Aerobic Blood Culture - Preliminary Resulted Blood Peripheral NO GROWTH IN 2 DAYS 11/22/16 06:05 Anaerobic Blood Culture - Preliminary Resulted Blood Peripheral NO GROWTH IN 2 DAYS 11/22/16 06:05 Aerobic Blood Culture - Preliminary Resulted Blood Peripheral NO GROWTH IN 2 DAYS 11/22/16 06:05 Anaerobic Blood Culture - Preliminary Resulted Blood Peripheral NO GROWTH IN 2 DAYS 11/22/16 20:15 Cancelled Respiratory 11/22/16 20:15 Gram Stain - Final Resulted Wound Other 11/22/16 20:15 Wound Culture Resulted Wound Other Pending IMAGING: Chest X-Ray 11/27/16 0600 Signed Impressions: Service Date/Time: Sunday, November 27, 2016 03:09 - CONCLUSION: Slight worsening left base consolidation. Remi Beebe MD Chest X-Ray 11/23/16 0600 Signed Impressions: Service Date/Time: Wednesday, November 23, 2016 03:04 - CONCLUSION: Left effusion and basilar airspace disease. Derrick Hagan MD Lower Extremity Ultrasound 11/22/16 0000 Signed Impressions: Service Date/Time: Tuesday, November 22, 2016 19:29 - CONCLUSION: 1. Negative for deep venous thrombosis. Exam somewhat limited on the right side as above. Domiinc Bowen MD Liver Ultrasound 11/20/16 0000 Signed Impressions: Service Date/Time: Sunday, November 20, 2016 15:47 - CONCLUSION: The liver is slightly echogenic which maybe due to fatty infiltration and or hepatocellular dysfunction. Kandi Ace MD PHYSICAL EXAMINATION: GENERAL: On the ventilator. HEENT: Conjunctival effusion and erythema. NECK: No swelling or adenopathy. LUNGS: Coarse breath sounds bilateral. HEART: Difficult to auscultate because of the intraaortic balloon pump noises. ABDOMEN: Bowel sounds present, soft, Distended. EXTREMITIES: No clubbing or cyanosis or edema. SKIN: No rash. Warm and moist. NEUROLOGIC: Unable to fully assess. IMPRESSION: 1. Fever. Post intubation and post cardiac arrest. Temp up again. 2. Post myocardial infarction. 3. Acute respiratory failure. 4. Sinusitis. Staph aureus. 5. Pneumonia - Staph aureus. 6. Elevated LFT ? meds. RECOMMENDATIONS: 1. Stop Ancef. 2. Stop Levaquin. 3. Start Vancomycin. Pharmacy to dose. 4. Start Zosyn. 5. monitor sputum culture. 6. Repeat blood culture. 7. Monitor temperature. 8. Monitor LFT. Kamar Freire MD Nov 27, 2016 11:44
[2016-11-27] MEDS ORDERED: Vancomycin Consult Pharmacy 1 EA OTHER SCH (11:45)
[2016-11-27] MEDS: PANTOPRAZOLE SODIUM 40 MG VIAL IV PUSH SCH (12:39)
[2016-11-27] MEDS: PIPERACIL-TAZO 3.375 GM PREMIX 50 ML IV SCH ×2 (13:23→18:13)
[2016-11-27] MEDS: VANCOMYCIN INJ 1,750 MG in SODIUM CHLORID 0.9% 500 ML INJ 500 ML IV SCH (13:23)
[2016-11-27] MEDS: MIDAZOLAM 100 MG/ML INJ 100 ML IV SCH (18:11)
[2016-11-27] MEDS: ATORVASTATIN 40 MG TAB PO SCH (21:23)
[2016-11-28] VITALS (14 sets, daily range): BP systolic 89–202; BP diastolic 62–84; PULSE 74–95; RESP 12–25; TEMP 98.2–101; O2SAT 94–99
[2016-11-28] MEDS: MIDAZOLAM 100 MG/ML INJ 100 ML IV SCH (00:08)
[2016-11-28] MEDS: PIPERACIL-TAZO 3.375 GM PREMIX 50 ML IV SCH ×5 (00:08→23:18)
[2016-11-28] MEDS: DEXMEDETOMIDINE INJ 50 ML IV SCH (01:11)
[2016-11-28 03:19] LABS: AUTOMATED NEUTROPHIL # 9.5 TH/MM3 (1.8-7.7); BASOPHIL # 0.1 TH/MM3 (0-0.2); BASOPHIL % 0.9 % (0.0-2.0); EOSINOPHIL # 0.5 TH/MM3 (0-0.4); EOSINOPHIL % 4.3 % (0.0-4.0); HEMATOCRIT 35.7 % (39.0-51.0); HEMO FLAGS DIFF FINAL; LYMPH % 4.5 % (9.0-44.0); LYMPHOCYTE # 0.6 TH/MM3 (1.0-4.8); MEAN CORPUSCULAR HEMOGLOBIN 31.2 PG (27.0-34.0); MONO % 14.1 % (0.0-8.0); NEUT % 76.2 % (16.0-70.0); PLATELET COUNT 298 TH/MM3 (150-450); RED BLOOD COUNT 4.02 MIL/MM3 (4.50-5.90); RED CELL DISTRIBUTION WIDTH 13.5 % (11.6-17.2); REVIEW FLAG FINAL; WHITE BLOOD COUNT 12.5 TH/MM3 (4.0-11.0)
[2016-11-28 03:35] LABS: ALT (GPT) 159 U/L (12-78); ANION GAP 7 MEQ/L (5-15); AST (GOT) 249 U/L (15-37); BICARBONATE 31.2 MEQ/L (21.0-32.0); BLOOD UREA NITROGEN 50 MG/DL (7-18); CHLORIDE 100 MEQ/L (98-107); GLOMERULAR FILTRATION RATE 60 ML/MIN (>89); MAGNESIUM 2.9 MG/DL (1.5-2.5); POTASSIUM 4.7 MEQ/L (3.5-5.1); SODIUM (NA) 138 MEQ/L (136-145)
[2016-11-28 03:37] LABS: ALKALINE PHOSPHATASE 190 U/L (45-117)
[2016-11-28] MEDS: ENOXAPARIN SODIUM 100 MG/ML SYRINGE SQ SCH ×2 (03:47→16:48)
[2016-11-28] MEDS: DEXMEDETOMIDINE INJ 1,000 MCG in SODIUM CHLOR 0.9% 250 ML INJ 240 ML IV SCH (03:48)
[2016-11-28] MEDS: RESP: ALBUTEROL 2.5 MG/IPRATROPIUM 0.5 MG NEB (SCH) NEB ×4 (04:35→21:07)
[2016-11-28] MEDS: INSULIN NovoLIN REGULAR SUPPLEMENTAL SCALE SQ SCH ×5 (06:08→23:18)
[2016-11-28] MEDS: CHLORHEXIDINE 0.12% (ORAL KIT) 15 ML CUP MT SCH ×2 (08:17→20:59)
[2016-11-28] MEDS: POTASSIUM CL 40 MEQ/30 ML LIQ UDC NG SCH (08:27)
[2016-11-28] MEDS: SENNOSIDES SYRUP 8.8 MG/5 ML CUP PO/TUBE SCH ×2 (08:27→21:00)
[2016-11-28] MEDS: DOCUSATE SODIUM 100 MG/10 ML UDC PO SCH ×2 (08:27→21:00)
[2016-11-28] MEDS: FUROSEMIDE 40 MG/4 ML VIAL IV PUSH SCH (08:27)
[2016-11-28] MEDS: FERROUS SULFATE 325 MG (65 MG ELEMENTAL IRON) TAB PO SCH ×2 (08:27→21:08)
[2016-11-28] MEDS: ASPIRIN 81 MG CHEW TAB PO SCH (08:28)
[2016-11-28] MEDS: POLYETHYLENE GLYCOL 17 GM PKG PO/NG SCH ×2 (08:28→21:00)
[2016-11-28] MEDS: CLOPIDOGREL 75 MG TAB PO SCH (08:28)
[2016-11-28] MEDS: GENTAMICIN SULFATE 0.3% OPHT OINT 3.5 GM TUBE EACH EYE SCH ×3 (08:29→18:11)
[2016-11-28] MEDS: ARTIFICIAL TEARS OPTH OINT 3.5 APPLIC/3.5 GM TUBO EACH EYE SCH ×2 (08:29→21:10)
--- NOTE | 2016-11-28 09:19 | HHI.CCPN ---
Subjective Remarks/Hospital Course 65-year-old gentleman has history of hyperlipidemia and asthma, he awoke, had some intermittent chest pain symptoms, began to become progressively worse over the course of the early afternoon. He came over to [facility], where an EKG showed new left bundle with ST-elevation anterolaterally. He was taken emergently to cardiac catheterization lab where his LAD was stented. At the end of the procedure patients suffered near cardiac arrest requiring intubation intra-aortic balloon pump placement and IV vasopressors. Critical care medicine was consulted to manage ventilatory dependent respiratory failure and assist with medical management. 2: Currently sedated on propofol drip. Remains on Osman-Synephrine at 90 g a minute. Tube feeds have not been initiated. No bowel movement. Remains on intra-aortic balloon pump 1:1 11/21: Currently sedated on propofol infusion, Versed and fentanyl drips. Remains on Osman-Synephrine at 65 g a minute. Tube feeds currently at 30 cc an hour. No bowel movement. Remains on intra-aortic balloon pump at 1:1 ratio. 11/22: Tmax 101.1. Currently 99.7. Currently intubated. Osman-Synephrine crease to 15 g per minute. Tube feeds at goal. Remains on intra-aortic balloon pump at 1:1 ratio. 11/23: Remains sedated, orally intubated on mechanical ventilation. Intra-aortic balloon pump remains in place. Transvenous pacer remains in place however has not required pacing for the last few days. 11/24: Remains sedated, orally intubated on mechanical ventilation. Intra-aortic balloon pump in place. Transvenous pacer removed today. 11/25: Remains sedated, orally intubated on mechanical ventilation. Intra-aortic balloon pump in place. Had some epistaxis overnight. Received Lovenox 100 mg 3 AM this morning. I have asked CONDITIONER TUMBLER OPERATOR to hold Lovenox after checking with Dr. Rey in v/o epistaxis. 11/26: Remains sedated/encephalopathic, orally intubated on mechanical ventilation. IABP in place. Epistaxis resolved. Lovenox 80 mg every [address] rey. Failed C Pap trial today and 6 minutes getting diaphoretic and tachypneic. Head CT planned. 11/27 Patient remains sedated with Versed and Precedex and intubated. Tmax 100.2 last night. Did not tolerate CPAP trials yesterday as h became tachycardic On IABP 1:1. On PRVC/AC RR 16, TV 600, IT: 1.0, PEEP:5 and FIO2 40%. Subjective 11/28: T max 101. Currently 98.9. 2 bowel movement. Tolerating tube feeds at goal. Weaning sedation and attempt for spontaneous breathing trials today. Was following commands according to RN yesterday. Objective Vital Signs Date Time Temp Pulse Resp B/P Pulse Ox O2 Delivery O2 Flow Rate FiO2 11/28/16 07:08 95 40 11/28/16 07:00 Mechanical Ventilator 11/28/16 07:00 81 11/28/16 07:00 87/60 11/28/16 07:00 98.9 16 Intake and Output 11/27/16 11/27/16 11/28/16 08:00 16:00 00:00 Intake Total 1801 ml 1312 ml Output Total 950 ml 2020 ml Balance 851 ml -708 ml Result Diagram: 11/28/16 0244 11/28/16 0244 Other Results Microbiology Date/Time Procedure Status Source Growth 11/27/16 12:25 Aerobic Blood Culture Received Blood Peripheral Pending 11/27/16 12:25 Anaerobic Blood Culture Received Blood Peripheral Pending 11/27/16 10:00 Gram Stain Received Sputum Endotracheal Pending 11/27/16 10:00 Sputum Culture Received Sputum Endotracheal Pending Imaging Last Impressions Chest X-Ray 11/27/16 0600 Signed Impressions: Service Date/Time: Sunday, November 27, 2016 03:09 - CONCLUSION: Slight worsening left base consolidation. Remi Beebe MD Head CT 11/26/16 0000 Signed Impressions: Service Date/Time: November 18:27 - CONCLUSION: 1. No acute intracranial abnormalities. Sinus disease as above. Dominic Bowen MD Lower Extremity Ultrasound 11/22/16 0000 Signed Impressions: Service Date/Time: Tuesday, November 22, 2016 19:29 - CONCLUSION: 1. Negative for deep venous thrombosis. Exam somewhat limited on the right side as above. Dominic Bowen MD Liver Ultrasound 11/20/16 0000 Signed Impressions: Service Date/Time: Sunday, November 20, 2016 15:47 - CONCLUSION: The liver is slightly echogenic which maybe due to fatty infiltration and or hepatocellular dysfunction. Kandi Ace MD Objective Remarks GENERAL: 65-year-old Kim male him a critically ill currently oral tracheally intubated and sedated, SKIN: Warm and dry. No rash HEENT: Normocephalic. Positive chemosis. PERRL. MMM. Some bleeding from posterior pharynx with deep suctioning. No obvious blood seen in anterior oral mucosa/tongue laceration not visualized NECK: Supple, trachea midline. No JVD or lymphadenopathy. CARDIOVASCULAR: Regular rate and rhythm. S1, S2 no S4. IABP 1:2 augmentation RESPIRATORY: Orally intubated on mechanical ventilation. Breath sounds equal bilaterally. GASTROINTESTINAL: Abdomen soft, non-tender, nondistended. Hypoactive bowel sounds. MUSCULOSKELETAL: No significant peripheral edema. Right groin is clean dry and intact with balloon pump/venous sheath Neuro: Sedated on Versed and Precedex drips. Withdraws to pain in bilateral upper and lower extremities. Positive gag. Positive corneal reflex. Procedures Cardiac catheterization - BMS LAD TVP Urinary Catheter: Yes Assessment to: Continue Madsen insert reason: Prolonged Immobilization Vascular Central Line Catheter: No Assessment to: Continue A/P Problem List: (1) STEMI (ST elevation myocardial infarction) ICD Code: I21.3 Status: Acute (2) Acute respiratory failure ICD Code: J96.00 Status: Acute (3) Cardiogenic shock ICD Code: R57.0 Status: Acute (4) Dyslipidemia ICD Code: E78.5 Status: Acute (5) Obesity hypoventilation syndrome ICD Code: E66.2 Status: Acute Assessment and Plan Neuro/Psych: On Versed drip at 5 mg an hour/Precedex drip at 0.7 mcg/kg per minute edition while intubated Goal of RASS -2 Daily sedation vacation 11/26 CT brain: No acute intracranial abnormalities/maxillary/ethmoid/sphenoid sinusitis Acetaminophen for fever CV: Acute systolic heart failure Cardiogenic shock Dyslipidemia IABP 1:2 Dr. Minor/cardiology following Off all vasopressors including Osman-Synephrine. monitor HR and BP keep MAP> 65mmHg Lasix 40 mg IV once a day for systolic heart failure. Echo- EF 20-25%. Distal anterior hypokinesis. Trace TR. Small pericardial effusion Cardiac catheterization - LAD 100% proximally status post BMS, ramus intermedius 90%. Mid circumflex 90%. OM1 90%. RCA 90% proximally stenosed Placement of transvenous pacemaker. In right femoral region, pacer wire removed on 11/24. CT surgery consultation - no intervention planned Continue with aspirin 81 mg daily, Lipitor 40mg qhs, Plavix 75mg daily Continue Lovenox 80 mg twice a day Check factor X A level. With creatinine around 1.4 Resp: Acute respiratory failure Allergic rhinitis PRVC16/600/0.8/5/40 Continue with vent support keep sat >92% Ventilator bundle, Duonebs every 6 hours and as needed Continue with SBT daily as yulissa. GI: Transaminitis Elevated CPK Continue tube feeds of vital high protein goal 60 cc an hour Protonix for GI prophylaxis Colace/SenokotMiraLAX twice daily for bowel regimen Monitor LFTs slowly trending up Liver ultrasound 11/20 revealed likely MCCALLUM/hepatitis panel negative Check AMA/LINDY/ASMA/ceruloplasmin/CPK hemoglobins and ammonia level in a.m. Check coags in a.m. Will consider discontinuing Lipitor if LFTs continue to rise. However, needs lipid-lowering agent light of coronary disease. : Monitor renal function, I/O's, electrolytes replacement per protocol. Decrease Lasix 40mg IV daily ( worsening renal function) Cr: 1.43 down from 1.1 Endo: Sliding-scale insulin with Accu-Cheks to maintain euglycemia. Low regimen. Every 6 hours. 3 units line scale insulin past 24 hours Heme: Leukocytosis Normocytic anemia Monitor CBC, on FeSO4 325 ID: Sputum wound cx 11/22: Staph Aureus Sinusitis - maxillary/ethmoid/sphenoid bilateral Continue with abx per ID (vancomycin/Zosyn) noted that Cefazolin, Levaquin were discontinued 11/27 Pertinent cultures 11/27 -blood cultures 2/sputum - pending 11/22 - sputum and wound - staph aureus 11/22 - blood cultures 2/urine - no growth to date monitor or signs of infections ( Fever, WBC) MSK: Range of motion therapy only at this present time Access - Peripheral IVs. Central line if indicated - Right venous sheath, right groin/IABP Prophylaxis - GI - Protonix - DVT - Lovenox 80mg BID Critical Care: The total critical care time was 35 minutes. Time to perform other separately billable procedures was not included in the critical care time. Problem Qualifiers (1) STEMI (ST elevation myocardial infarction): Qualified Code: I21.02 - ST elevation myocardial infarction involving left anterior descending (LAD) coronary artery Baldev Higgins MD Nov 28, 2016 09:19
--- NOTE | 2016-11-28 09:59 | PD.CARD.PN ---
Subjective Subjective Remarks Intubated, sedated. Objective Medications Administered Medications Medications (Trade) Dose Ordered Sig/Syed Route PRN Reason Start Time Stop Time Status Last Admin Dose Admin IV Flush (NS Flush) 2 ml UNSCH PRN IVF FLUSH AFTER USING IV ACCESS 11/19/16 17:30 11/21/16 21:05 Aspirin (Aspirin Chew) 81 mg DAILY PO 11/20/16 09:00 11/28/16 08:28 Atorvastatin Calcium 40 mg 40 mg HS PO 11/19/16 21:00 11/27/16 21:23 Phenylephrine HCl 40 mg/Dextrose 500 ml @ 0 mls/hr TITRATE IV 11/19/16 21:15 11/24/16 18:50 Propofol (Diprivan 1000 Mg/100ml Inj) 100 ml @ 0 mls/hr TITRATE IV 11/20/16 01:00 11/23/16 06:07 Chlorhexidine Gluconate 15 ml 15 ml BID@08,20 MT 11/20/16 20:00 11/28/16 08:17 Midazolam HCl 100 ml @ 0 mls/hr TITRATE IV 11/20/16 12:30 11/28/16 00:08 Fentanyl Citrate (fentaNYL DRIP) 250 ml @ 0 mls/hr TITRATE IV 11/20/16 12:30 11/26/16 12:39 Docusate Sodium (Colace Liq) 100 mg Q12HR PO 11/20/16 21:00 11/28/16 08:27 Artificial Tears (Lacrilube Opht Oint) 1 applic Q12HR EACH EYE 11/20/16 21:00 11/28/16 08:29 Insulin Human Regular (NovoLIN R SUPPLEMENTAL SCALE) 1 Q6HR SQ 11/20/16 18:00 11/28/16 06:08 Pantoprazole Sodium (Protonix Inj) 40 mg Q24H IV PUSH 11/20/16 13:00 11/27/16 12:39 Clopidogrel Bisulfate (Plavix) 75 mg DAILY PO 11/22/16 09:00 11/28/16 08:28 Sennosides (Senna Liq) 8.8 mg BID PO/TUBE 11/21/16 21:00 11/28/16 08:27 Polyethylene Glycol (Miralax) 17 gm BID PO/NG 11/21/16 21:00 11/28/16 08:28 Gentamicin Sulfate (Gentamicin 0.3% Opht Oint) 1 applic TID EACH EYE 11/25/16 10:45 11/28/16 08:29 Ferrous Sulfate (Ferrous Sulfate) 325 mg BID PO 11/25/16 21:00 11/28/16 08:27 Enoxaparin Sodium (Lovenox Inj) 80 mg Q12H SQ 11/26/16 15:00 11/28/16 03:47 Furosemide 40 mg 40 mg DAILY IV PUSH 11/27/16 09:00 11/28/16 08:27 Piperacillin Sod/ Tazobactam Sod 50 ml @ 100 mls/hr Q6H IV 11/27/16 12:00 11/28/16 06:08 Vancomycin HCl 1750 mg/Sodium Chloride 517.5 ml @ 250 mls/hr Q24H IV 11/27/16 13:00 11/27/16 13:23 Dexmedetomidine HCl/Sodium Chloride (Precedex Inj/NS 250 ml Inj) 250 ml @ 0 mls/hr TITRATE IV 11/28/16 01:33 11/28/16 03:48 Vital Signs / I&O Vital Signs Date Time Temp Pulse Resp B/P Pulse Ox O2 Delivery O2 Flow Rate FiO2 11/28/16 07:08 95 40 11/28/16 07:00 94 Mechanical Ventilator 40 11/28/16 07:00 81 11/28/16 07:00 87/60 11/28/16 07:00 98.9 81 16 98/67 95 11/28/16 07:00 40 11/28/16 06:00 87/61 11/28/16 05:00 87/60 11/28/16 04:36 96 40 11/28/16 04:00 83/57 11/28/16 03:17 79 11/28/16 03:00 40 11/28/16 03:00 89/67 11/28/16 03:00 94 Mechanical Ventilator 40 11/28/16 03:00 101.0 80 16 89/67 94 111/62 11/28/16 02:00 89/67 11/28/16 01:00 91/66 11/28/16 00:39 97 40 11/28/16 00:00 90/62 11/27/16 23:00 40 11/27/16 23:00 100.1 78 16 84/63 97 119/76 11/27/16 23:00 97 Mechanical Ventilator 40 11/27/16 23:00 84/63 11/27/16 23:00 78 11/27/16 22:25 98 40 11/27/16 22:00 82/59 11/27/16 21:00 85/59 11/27/16 20:17 97 40 11/27/16 20:00 97/60 11/27/16 19:00 40 11/27/16 19:00 81/54 11/27/16 19:00 92 11/27/16 19:00 97 Mechanical Ventilator 40 11/27/16 19:00 100.0 80 16 81/54 97 102/66 11/27/16 18:35 97 40 11/27/16 18:00 96/67 11/27/16 17:00 102/67 11/27/16 16:12 97 40 11/27/16 16:00 105/67 11/27/16 15:00 97 Mechanical Ventilator 40 11/27/16 15:00 103/66 11/27/16 15:00 40 11/27/16 15:00 93 11/27/16 14:00 104/67 11/27/16 13:04 96 40 11/27/16 13:00 101/68 11/27/16 12:09 94 40 11/27/16 12:00 84/60 11/27/16 11:00 92 11/27/16 11:00 40 11/27/16 11:00 97 Mechanical Ventilator 40 11/27/16 11:00 102/69 11/27/16 10:00 89/67 I/O 11/27/16 11/27/16 11/27/16 11/28/16 11/28/16 11/28/16 07:00 15:00 23:00 07:00 15:00 23:00 Intake Total 1801 ml 1312 ml 1057 ml Output Total 950 ml 2020 ml 700 ml Balance 851 ml -708 ml 357 ml Intake Oral 0 ml 0 ml IV Total 426 ml 706 ml 381 ml Tube Feeding 1075 ml 566 ml 586 ml Tube Irrigant 40 ml 90 ml Other 300 ml Output Urine Total 950 ml 2020 ml 700 ml # Bowel Movements 1 1 1 Physical Exam GENERAL: Intubated, sedated CARDIOVASCULAR: Regular rate and rhythm without murmurs, gallops, or rubs. RESPIRATORY: Clear to auscultation. Breath sounds equal bilaterally. No wheezes , rales, or rhonchi. GASTROINTESTINAL: Abdomen soft, non-tender, nondistended. Normal active bowel sounds MUSCULOSKELETAL: Extremities without clubbing, cyanosis, or edema. NEURO: Intubated, sedated Laboratory Laboratory Tests Test 11/27/16 11/28/16 10:00 02:44 Urine Color LIGHT-YELLOW Urine Turbidity CLEAR Urine pH 6.5 Urine Specific [place] 1.007 Urine Protein NEG mg/dL Urine Glucose (UA) NEG mg/dL Urine Ketones NEG mg/dL Urine Occult Blood MOD Urine Nitrite NEG Urine Bilirubin NEG Urine Urobilinogen LESS THAN 2.0 MG/DL Urine Leukocyte Esterase NEG Urine RBC 152 /hpf Urine WBC 3 /hpf Urine Mucus FEW /lpf Microscopic Urinalysis Comment CULT NOT INDICATED White Blood Count 12.5 TH/MM3 Red Blood Count 4.02 MIL/MM3 Hemoglobin 12.5 GM/DL Hematocrit 35.7 % Mean Corpuscular Volume 89.0 FL Mean Corpuscular Hemoglobin 31.2 PG Mean Corpuscular Hemoglobin 35.0 % Concent Red Cell Distribution Width 13.5 % Platelet Count 298 TH/MM3 Mean Platelet Volume 8.1 FL Neutrophils (%) (Auto) 76.2 % Lymphocytes (%) (Auto) 4.5 % Monocytes (%) (Auto) 14.1 % Eosinophils (%) (Auto) 4.3 % Basophils (%) (Auto) 0.9 % Neutrophils # (Auto) 9.5 TH/MM3 Lymphocytes # (Auto) 0.6 TH/MM3 Monocytes # (Auto) 1.8 TH/MM3 Eosinophils # (Auto) 0.5 TH/MM3 Basophils # (Auto) 0.1 TH/MM3 CBC Comment DIFF FINAL Differential Comment Sodium Level 138 MEQ/L Potassium Level 4.7 MEQ/L Chloride Level 100 MEQ/L Carbon Dioxide Level 31.2 MEQ/L Anion Gap 7 MEQ/L Blood Urea Nitrogen 50 MG/DL Creatinine 1.43 MG/DL Estimat Glomerular Filtration 60 ML/MIN Rate Random Glucose 200 MG/DL Calcium Level 9.3 MG/DL Phosphorus Level 3.0 MG/DL Magnesium Level 2.9 MG/DL Total Bilirubin 1.0 MG/DL Aspartate Amino Transf 249 U/L (AST/SGOT) Alanine Aminotransferase 159 U/L (ALT/SGPT) Alkaline Phosphatase 190 U/L Total Protein 8.0 GM/DL Albumin 2.3 GM/DL Imaging Last Impressions Chest X-Ray 11/27/16 0600 Signed Impressions: Service Date/Time: Sunday, November 27, 2016 03:09 - CONCLUSION: Slight worsening left base consolidation. Remi Beebe MD Head CT 11/26/16 0000 Signed Impressions: Service Date/Time: November 18:27 - CONCLUSION: 1. No acute intracranial abnormalities. Sinus disease as above. Dominic Bowen MD Lower Extremity Ultrasound 11/22/16 0000 Signed Impressions: Service Date/Time: Tuesday, November 22, 2016 19:29 - CONCLUSION: 1. Negative for deep venous thrombosis. Exam somewhat limited on the right side as above. Dominic Bowen MD Liver Ultrasound 11/20/16 0000 Signed Impressions: Service Date/Time: Sunday, November 20, 2016 15:47 - CONCLUSION: The liver is slightly echogenic which maybe due to fatty infiltration and or hepatocellular dysfunction. Kandi Ace MD Assessment and Plan Problem List: (1) STEMI (ST elevation myocardial infarction) Assessment and Plan: continue med mgt. (2) Cardiogenic shock Assessment and Plan: off pressors IABP 1:2 augmentation consider d/c tomorrow (3) Dyslipidemia (4) ventilatory dependent resp failure Assessment and Plan: vent management per [facility] (5) Elevated LFTs (6) Sinusitis Problem Qualifiers (1) STEMI (ST elevation myocardial infarction): Qualified Code: I21.02 - ST elevation myocardial infarction involving left anterior descending (LAD) coronary artery Epifanio Braswell MD Nov 28, 2016 09:59
[2016-11-28 11:58] LABS: IMMUNOGLOBULIN A 724 MG/DL (98-543); IMMUNOGLOBULIN G 1260 MG/DL (670-1650); IMMUNOGLOBULIN M 28 MG/DL (39-238)
[2016-11-28] MEDS: PANTOPRAZOLE SODIUM 40 MG VIAL IV PUSH SCH (13:22)
[2016-11-28] MEDS: VANCOMYCIN INJ 1,750 MG in SODIUM CHLORID 0.9% 500 ML INJ 500 ML IV SCH (13:22)
[2016-11-28] MEDS: ATORVASTATIN 40 MG TAB PO SCH (21:08)
[2016-11-28] MEDS ORDERED: INSULIN NovoLIN REGULAR SUPPLEMENTAL SCALE ONE (23:17)
[2016-11-29] VITALS (13 sets, daily range): BP systolic 96–128; BP diastolic 61–76; PULSE 75–92; RESP 16–20; TEMP 98.8–100.1; O2SAT 93–99
[2016-11-29] MEDS: DEXMEDETOMIDINE INJ 1,000 MCG in SODIUM CHLOR 0.9% 250 ML INJ 240 ML IV SCH (02:39)
[2016-11-29] MEDS: ENOXAPARIN SODIUM 100 MG/ML SYRINGE SQ SCH ×2 (03:51→15:47)
[2016-11-29] MEDS: RESP: ALBUTEROL 2.5 MG/IPRATROPIUM 0.5 MG NEB (SCH) NEB ×4 (03:58→21:25)
[2016-11-29 04:30] LABS: AUTOMATED NEUTROPHIL # 9.7 TH/MM3 (1.8-7.7); BASOPHIL # 0.1 TH/MM3 (0-0.2); BASOPHIL % 0.8 % (0.0-2.0); EOSINOPHIL # 0.8 TH/MM3 (0-0.4); EOSINOPHIL % 6.5 % (0.0-4.0); HEMATOCRIT 32.1 % (39.0-51.0); HEMO FLAGS DIFF FINAL; LYMPH % 6.5 % (9.0-44.0); LYMPHOCYTE # 0.8 TH/MM3 (1.0-4.8); MEAN CELL VOLUME 90.8 FL (80.0-100.0); MEAN CORPUSCULAR HEMOGLOBIN 30.7 PG (27.0-34.0); MEAN CORPUSCULAR HGB CONC 33.8 % (32.0-36.0); MONO % 10.2 % (0.0-8.0); PLATELET COUNT 329 TH/MM3 (150-450); RED BLOOD COUNT 3.54 MIL/MM3 (4.50-5.90); RED CELL DISTRIBUTION WIDTH 13.4 % (11.6-17.2); WHITE BLOOD COUNT 12.8 TH/MM3 (4.0-11.0)
--- NOTE | 2016-11-29 05:00 | RADRPT ---
EXAM DATE/TIME: 11/29/2016 03:23 [place] COMPARISON: CHEST SINGLE AP, November 27, 2016, 3:09. INDICATIONS : Shortness of breath, possible pulmonary disease. MEDICAL HISTORY : Myocardial infarction. Asthma SURGICAL HISTORY : None. ENCOUNTER: Subsequent ACUITY: 1 week PAIN SCORE: Non-responsive. LOCATION: Bilateral chest FINDINGS: Consolidation of the left lung base again noted, slightly improved. Right lung remains reasonably indira ar. No pneumothorax seen. Endotracheal tube tip is approximately 3 cm above the ba. There is a nasogastric tube coiled in t he stomach. Stable, normal heart size. CONCLUSION: Modestly improved left base consolidation. Right lung remains clear. Remi Beebe MD on November 29, 2016 at 4:58 Board Certified Radiologist. This report was verified electronically.
[2016-11-29 05:24] LABS: ALKALINE PHOSPHATASE 208 U/L (45-117); ALT (GPT) 182 U/L (12-78); ANION GAP 6 MEQ/L (5-15); AST (GOT) 193 U/L (15-37); BICARBONATE 32.7 MEQ/L (21.0-32.0); BLOOD UREA NITROGEN 41 MG/DL (7-18); CHLORIDE 102 MEQ/L (98-107); CREATINE KINASE 2482 U/L (39-308); GLOMERULAR FILTRATION RATE 74 ML/MIN (>89); MAGNESIUM 2.7 MG/DL (1.5-2.5); SODIUM (NA) 141 MEQ/L (136-145); TOTAL BILIRUBIN ADULT 0.7 MG/DL (0.2-1.0)
[2016-11-29 05:54] LABS: CKMB 3.8 NG/ML (0.5-3.6)
[2016-11-29] MEDS: PIPERACIL-TAZO 3.375 GM PREMIX 50 ML IV SCH ×4 (06:03→23:53)
[2016-11-29] MEDS: INSULIN NovoLIN REGULAR SUPPLEMENTAL SCALE SQ SCH ×4 (06:17→23:53)
[2016-11-29] MEDS: CHLORHEXIDINE 0.12% (ORAL KIT) 15 ML CUP MT SCH ×2 (07:58→22:12)
[2016-11-29] MEDS: FERROUS SULFATE 325 MG (65 MG ELEMENTAL IRON) TAB PO SCH ×2 (08:43→22:11)
[2016-11-29] MEDS: ASPIRIN 81 MG CHEW TAB PO SCH (08:43)
[2016-11-29] MEDS: SODIUM CHLORIDE 0.9% FLUSH 5 ML FLUSH IVF PRN (08:44)
[2016-11-29] MEDS: FUROSEMIDE 40 MG/4 ML VIAL IV PUSH SCH (08:44)
[2016-11-29] MEDS: DOCUSATE SODIUM 100 MG/10 ML UDC PO SCH ×2 (08:44→20:27)
[2016-11-29] MEDS: ARTIFICIAL TEARS OPTH OINT 3.5 APPLIC/3.5 GM TUBO EACH EYE SCH ×2 (08:44→22:12)
[2016-11-29] MEDS: CLOPIDOGREL 75 MG TAB PO SCH (08:44)
[2016-11-29] MEDS: GENTAMICIN SULFATE 0.3% OPHT OINT 3.5 GM TUBE EACH EYE SCH ×3 (08:44→18:12)
[2016-11-29] MEDS: SENNOSIDES SYRUP 8.8 MG/5 ML CUP PO/TUBE SCH ×2 (08:45→20:27)
[2016-11-29] MEDS: POLYETHYLENE GLYCOL 17 GM PKG PO/NG SCH ×2 (08:45→20:27)
--- NOTE | 2016-11-29 08:51 | HHI.CCPN ---
Subjective Remarks/Hospital Course 65-year-old gentleman has history of hyperlipidemia and asthma, he awoke, had some intermittent chest pain symptoms, began to become progressively worse over the course of the early afternoon. He came over to [facility], where an EKG showed new left bundle with ST-elevation anterolaterally. He was taken emergently to cardiac catheterization lab where his LAD was stented. At the end of the procedure patients suffered near cardiac arrest requiring intubation intra-aortic balloon pump placement and IV vasopressors. Critical care medicine was consulted to manage ventilatory dependent respiratory failure and assist with medical management. 2: Currently sedated on propofol drip. Remains on Osman-Synephrine at 90 g a minute. Tube feeds have not been initiated. No bowel movement. Remains on intra-aortic balloon pump 1:1 11/21: Currently sedated on propofol infusion, Versed and fentanyl drips. Remains on Osman-Synephrine at 65 g a minute. Tube feeds currently at 30 cc an hour. No bowel movement. Remains on intra-aortic balloon pump at 1:1 ratio. 11/22: Tmax 101.1. Currently 99.7. Currently intubated. Osman-Synephrine crease to 15 g per minute. Tube feeds at goal. Remains on intra-aortic balloon pump at 1:1 ratio. 11/23: Remains sedated, orally intubated on mechanical ventilation. Intra-aortic balloon pump remains in place. Transvenous pacer remains in place however has not required pacing for the last few days. 11/24: Remains sedated, orally intubated on mechanical ventilation. Intra-aortic balloon pump in place. Transvenous pacer removed today. 11/25: Remains sedated, orally intubated on mechanical ventilation. Intra-aortic balloon pump in place. Had some epistaxis overnight. Received Lovenox 100 mg 3 AM this morning. I have asked ELECTRICIAN REFINERY to hold Lovenox after checking with Dr. Rey in v/o epistaxis. 11/26: Remains sedated/encephalopathic, orally intubated on mechanical ventilation. IABP in place. Epistaxis resolved. Lovenox 80 mg every [address] rey. Failed C Pap trial today and 6 minutes getting diaphoretic and tachypneic. Head CT planned. 11/27 Patient remains sedated with Versed and Precedex and intubated. Tmax 100.2 last night. Did not tolerate CPAP trials yesterday as h became tachycardic On IABP 1:1. On PRVC/AC RR 16, TV 600, IT: 1.0, PEEP:5 and FIO2 40%. Subjective 11/28: T max 101. Currently 98.9. 2 bowel movement. Tolerating tube feeds at goal. Weaning sedation and attempt for spontaneous breathing trials today. Was following commands according to RN yesterday. 11/29: The patient tolerated CPAP trials for the last 2 days all day approximately 16 hours. The patient failed SBT yesterday after 10 minutes. He remains GCS 11T, follows commands, nodding yes and no to questions. Objective Vital Signs Date Time Temp Pulse Resp B/P Pulse Ox O2 Delivery O2 Flow Rate FiO2 11/29/16 08:06 40 11/29/16 08:06 97 11/29/16 06:00 95/64 11/29/16 03:00 100.1 81 18 11/29/16 03:00 Mechanical Ventilator Intake and Output 11/28/16 11/28/16 11/29/16 08:00 16:00 00:00 Intake Total 1057 ml 1537 ml Output Total 700 ml 1700 ml Balance 357 ml -163 ml Result Diagram: 11/29/16 0412 11/29/16 0412 Imaging Last Impressions Chest X-Ray 11/29/16 0600 Signed Impressions: Service Date/Time: Tuesday, November 29, 2016 03:23 - CONCLUSION: Modestly improved left base consolidation. Right lung remains clear. Remi Beebe MD Head CT 11/26/16 0000 Signed Impressions: Service Date/Time: November 18:27 - CONCLUSION: 1. No acute intracranial abnormalities. Sinus disease as above. Dominic Bowen MD Lower Extremity Ultrasound 11/22/16 0000 Signed Impressions: Service Date/Time: Tuesday, November 22, 2016 19:29 - CONCLUSION: 1. Negative for deep venous thrombosis. Exam somewhat limited on the right side as above. Dominic Bowen MD Liver Ultrasound 11/20/16 0000 Signed Impressions: Service Date/Time: Sunday, November 20, 2016 15:47 - CONCLUSION: The liver is slightly echogenic which maybe due to fatty infiltration and or hepatocellular dysfunction. Kandi Aec MD Last Impressions Chest X-Ray 11/27/16 0600 Signed Impressions: Service Date/Time: Sunday, November 27, 2016 03:09 - CONCLUSION: Slight worsening left base consolidation. Remi Beebe MD Head CT 11/26/16 0000 Signed Impressions: Service Date/Time: November 18:27 - CONCLUSION: 1. No acute intracranial abnormalities. Sinus disease as above. Dominic Bowen MD Lower Extremity Ultrasound 11/22/16 0000 Signed Impressions: Service Date/Time: Tuesday, November 22, 2016 19:29 - CONCLUSION: 1. Negative for deep venous thrombosis. Exam somewhat limited on the right side as above. Dominic Bowen MD Liver Ultrasound 11/20/16 0000 Signed Impressions: Service Date/Time: Sunday, November 20, 2016 15:47 - CONCLUSION: The liver is slightly echogenic which maybe due to fatty infiltration and or hepatocellular dysfunction. Kandi Ace MD Objective Remarks GENERAL: 65-year-old Kim male him a critically ill currently oral tracheally intubated and sedated SKIN: Warm and dry. No rash HEENT: Normocephalic. Positive chemosis. PERRL. MMM. Some bleeding from posterior pharynx with deep suctioning. No obvious blood seen in anterior oral mucosa/tongue laceration not visualized NECK: Supple, trachea midline. No JVD or lymphadenopathy. CARDIOVASCULAR: Regular rate and rhythm. S1, S2 no S4. IABP 1:2 augmentation RESPIRATORY: Orally intubated on mechanical ventilation. Breath sounds equal bilaterally. GASTROINTESTINAL: Abdomen soft, non-tender, nondistended. Hypoactive bowel sounds. MUSCULOSKELETAL: No significant peripheral edema. Right groin is clean dry and intact with balloon pump/venous sheath NEURO: GCS 11T following commands appropriately. Procedures Cardiac catheterization - BMS- LAD TVP Urinary Catheter: Yes Vascular Central Line Catheter: Yes A/P Problem List: (1) STEMI (ST elevation myocardial infarction) ICD Code: I21.3 Status: Acute (2) Acute respiratory failure ICD Code: J96.00 Status: Acute (3) Cardiogenic shock ICD Code: R57.0 Status: Acute (4) Dyslipidemia ICD Code: E78.5 Status: Acute (5) Obesity hypoventilation syndrome ICD Code: E66.2 Status: Acute Assessment and Plan Neuro/Psych: Versed off for 11/28 ,Precedex infusion at 0.4 mcgkg/hr while intubated Goal of RASS -1 Daily sedation vacation 11/26 CT brain: No acute intracranial abnormalities/maxillary/ethmoid/sphenoid sinusitis Acetaminophen for fever CV: Acute systolic heart failure Cardiogenic shock Dyslipidemia IABP 1:2 Dr. Rey/cardiology following Off all vasopressors including Osman-Synephrine. monitor HR and BP keep MAP> 65mmHg Lasix 40 mg IV once a day for systolic heart failure Echo- EF 20-25%. Distal anterior hypokinesis. Trace TR. Small pericardial effusion Cardiac catheterization - LAD 100% proximally status post BMS, ramus intermedius 90%. Mid circumflex 90%. OM1 90%. RCA 90% proximally stenosed Placement of transvenous pacemaker. In right femoral region, pacer wire removed on 11/24. CT surgery consultation - no intervention planned Continue with aspirin 81 mg daily, Lipitor 40mg qhs, Plavix 75mg daily Continue Lovenox 80 mg twice a day Factor X A level- pending Resp: Acute respiratory failure Allergic rhinitis PRVC16/600/0.8//40 Continue with vent support keep sat >92% Ventilator bundle, Duonebs every 6 hours and as needed Continue with SBT daily as yulissa. SBT trials today GI: Transaminitis Elevated CPK Continue tube feeds of vital high protein goal 60 cc an hour Protonix for GI prophylaxis Colace/SenokotMiraLAX twice daily for bowel regimen Monitor LFTs slowly trending up Liver ultrasound 11/20 revealed likely MCCALLUM/hepatitis panel negative Check AMA/LINDY/ASMA/ceruloplasmin/CPK-Pending Ammonia level -28 F/u coags Will consider discontinuing Lipitor if LFTs continue to rise, will continue to monitor. However, needs lipid-lowering agent light of coronary disease. : Monitor renal function, I/O's, electrolytes replacement per protocol. Lasix 40mg IV daily Cr: 1.2, improving Endo: Sliding-scale insulin with Accu-Cheks to maintain euglycemia. Low regimen. Every 6 hours. 3 units line scale insulin past 24 hours Heme: Leukocytosis Normocytic anemia Monitor CBC, on FeSO4 325 ID: Sputum wound cx 11/22: Staph Aureus Sinusitis - maxillary/ethmoid/sphenoid bilateral Continue with abx per ID (vancomycin/Zosyn) noted that Cefazolin, Levaquin were discontinued 11/27 Pertinent cultures 11/27 -blood cultures 2/sputum - pending 11/22 - sputum and wound - staph aureus / - blood cultures 2/urine - no growth to date monitor or signs of infections ( Fever, WBC) MSK: Range of motion therapy only at this present time Access - Peripheral IVs. Central line if indicated - Right venous sheath, right groin/IABP Prophylaxis - GI - Protonix - DVT - Lovenox 80mg BID Critical Care: The total critical care time was 33 minutes. Time to perform other separately billable procedures was not included in the critical care time. Physician Em Schultz Problem Qualifiers (1) STEMI (ST elevation myocardial infarction): Qualified Code: I21.02 - ST elevation myocardial infarction involving left anterior descending (LAD) coronary artery Em Schultz MD Nov 29, 2016 08:51
--- NOTE | 2016-11-29 10:18 | PD.CARD.PN ---
Subjective Subjective Remarks Intubated, on cpap trial. Objective Medications Administered Medications Medications (Trade) Dose Ordered Sig/Syed Route PRN Reason Start Time Stop Time Status Last Admin Dose Admin IV Flush (NS Flush) 2 ml UNSCH PRN IVF FLUSH AFTER USING IV ACCESS 11/19/16 17:30 11/29/16 08:44 Aspirin (Aspirin Chew) 81 mg DAILY PO 11/20/16 09:00 11/29/16 08:43 Atorvastatin Calcium 40 mg 40 mg HS PO 11/19/16 21:00 11/28/16 21:08 Phenylephrine HCl 40 mg/Dextrose 500 ml @ 0 mls/hr TITRATE IV 11/19/16 21:15 11/24/16 18:50 Propofol (Diprivan 1000 Mg/100ml Inj) 100 ml @ 0 mls/hr TITRATE IV 11/20/16 01:00 11/23/16 06:07 Chlorhexidine Gluconate 15 ml 15 ml BID@08,20 MT 11/20/16 20:00 11/29/16 07:58 Midazolam HCl 100 ml @ 0 mls/hr TITRATE IV 11/20/16 12:30 11/28/16 00:08 Fentanyl Citrate (fentaNYL DRIP) 250 ml @ 0 mls/hr TITRATE IV 11/20/16 12:30 11/26/16 12:39 Docusate Sodium (Colace Liq) 100 mg Q12HR PO 11/20/16 21:00 11/28/16 08:27 Artificial Tears (Lacrilube Opht Oint) 1 applic Q12HR EACH EYE 11/20/16 21:00 11/29/16 08:44 Insulin Human Regular (NovoLIN R SUPPLEMENTAL SCALE) 1 Q6HR SQ 11/20/16 18:00 11/29/16 06:17 Pantoprazole Sodium (Protonix Inj) 40 mg Q24H IV PUSH 11/20/16 13:00 11/28/16 13:22 Clopidogrel Bisulfate (Plavix) 75 mg DAILY PO 11/22/16 09:00 11/29/16 08:44 Sennosides (Senna Liq) 8.8 mg BID PO/TUBE 11/21/16 21:00 11/28/16 08:27 Polyethylene Glycol (Miralax) 17 gm BID PO/NG 11/21/16 21:00 11/28/16 08:28 Gentamicin Sulfate (Gentamicin 0.3% Opht Oint) 1 applic TID EACH EYE 11/25/16 10:45 11/29/16 08:44 Ferrous Sulfate (Ferrous Sulfate) 325 mg BID PO 11/25/16 21:00 11/29/16 08:43 Enoxaparin Sodium (Lovenox Inj) 80 mg Q12H SQ 11/26/16 15:00 11/29/16 03:51 Furosemide 40 mg 40 mg DAILY IV PUSH 11/27/16 09:00 11/29/16 08:44 Piperacillin Sod/ Tazobactam Sod 50 ml @ 100 mls/hr Q6H IV 11/27/16 12:00 11/29/16 06:03 Vancomycin HCl 1750 mg/Sodium Chloride 517.5 ml @ 250 mls/hr Q24H IV 11/27/16 13:00 11/28/16 13:22 Dexmedetomidine HCl/Sodium Chloride (Precedex Inj/NS 250 ml Inj) 250 ml @ 0 mls/hr TITRATE IV 11/28/16 01:33 11/29/16 02:39 Vital Signs / I&O Vital Signs Date Time Temp Pulse Resp B/P Pulse Ox O2 Delivery O2 Flow Rate FiO2 11/29/16 09:55 98 40 11/29/16 09:10 97 40 11/29/16 08:06 40 11/29/16 08:06 97 40 11/29/16 06:00 95/64 11/29/16 05:00 103/71 11/29/16 04:00 87/59 11/29/16 03:58 94 40 11/29/16 03:00 102/61 11/29/16 03:00 100.1 81 18 102/61 93 120/76 11/29/16 03:00 40 11/29/16 03:00 81 120/76 102/61 11/29/16 03:00 93 Mechanical Ventilator 40 11/29/16 03:00 81 11/29/16 02:00 92/61 11/29/16 01:21 94 40 11/29/16 01:00 89/61 11/29/16 00:00 101/66 11/28/16 23:00 99.7 83 17 101/67 94 118/69 11/28/16 23:00 40 11/28/16 23:00 80 11/28/16 23:00 95 40 11/28/16 23:00 83 118/69 101/67 11/28/16 23:00 94 Mechanical Ventilator 40 11/28/16 23:00 101/67 11/28/16 22:00 91/61 11/28/16 21:00 99/65 11/28/16 20:00 97 Mechanical Ventilator 40 11/28/16 20:00 99/64 11/28/16 20:00 98 40 11/28/16 20:00 40 11/28/16 19:00 40 11/28/16 19:00 99.7 87 12 119/70 97 101/66 11/28/16 19:00 97 Mechanical Ventilator 40 11/28/16 19:00 87 119/70 101/66 11/28/16 19:00 101/66 11/28/16 19:00 87 11/28/16 18:15 97 40 11/28/16 18:00 11/28/16 17:00 11/28/16 16:10 96 40 11/28/16 16:00 11/28/16 15:00 40 11/28/16 15:00 95 11/28/16 15:00 99.2 95 25 140/84 99 11/28/16 15:00 94 Mechanical Ventilator 40 11/28/16 15:00 11/28/16 14:00 11/28/16 13:19 98 40 11/28/16 13:00 11/28/16 12:00 85/59 11/28/16 11:00 94 Mechanical Ventilator 40 11/28/16 11:00 74 11/28/16 11:00 40 11/28/16 11:00 98 40 11/28/16 11:00 98.2 74 16 113/69 98 11/28/16 11:00 85/59 I/O 11/28/16 11/28/16 11/28/16 11/29/16 11/29/16 11/29/16 07:00 15:00 23:00 07:00 15:00 23:00 Intake Total 1057 ml 1537 ml 1113 ml Output Total 700 ml 1700 ml 900 ml Balance 357 ml -163 ml 213 ml Intake Oral 0 ml 0 ml IV Total 381 ml 600 ml 218 ml Tube Feeding 586 ml 577 ml 685 ml Tube Irrigant 90 ml Other 360 ml 210 ml Output Urine Total 700 ml 1700 ml 900 ml # Bowel Movements 1 4 1 Physical Exam GENERAL: Intubated CARDIOVASCULAR: Regular rate and rhythm without murmurs, gallops, or rubs. RESPIRATORY: Clear to auscultation. Breath sounds equal bilaterally. No wheezes , rales, or rhonchi. GASTROINTESTINAL: Abdomen soft, non-tender, nondistended. Normal active bowel sounds MUSCULOSKELETAL: Extremities without clubbing, cyanosis, or edema. NEURO: Intubated Laboratory Laboratory Tests Test 11/28/16 11/29/16 10:45 04:12 Immunoglobulin G Total 1260 MG/DL Immunoglobulin A 724 MG/DL Immunoglobulin M 28 MG/DL White Blood Count 12.8 TH/MM3 Red Blood Count 3.54 MIL/MM3 Hemoglobin 10.9 GM/DL Hematocrit 32.1 % Mean Corpuscular Volume 90.8 FL Mean Corpuscular Hemoglobin 30.7 PG Mean Corpuscular Hemoglobin 33.8 % Concent Red Cell Distribution Width 13.4 % Platelet Count 329 TH/MM3 Mean Platelet Volume 8.1 FL Neutrophils (%) (Auto) 76.0 % Lymphocytes (%) (Auto) 6.5 % Monocytes (%) (Auto) 10.2 % Eosinophils (%) (Auto) 6.5 % Basophils (%) (Auto) 0.8 % Neutrophils # (Auto) 9.7 TH/MM3 Lymphocytes # (Auto) 0.8 TH/MM3 Monocytes # (Auto) 1.3 TH/MM3 Eosinophils # (Auto) 0.8 TH/MM3 Basophils # (Auto) 0.1 TH/MM3 CBC Comment DIFF FINAL Differential Comment Sodium Level 141 MEQ/L Potassium Level 4.0 MEQ/L Chloride Level 102 MEQ/L Carbon Dioxide Level 32.7 MEQ/L Anion Gap 6 MEQ/L Blood Urea Nitrogen 41 MG/DL Creatinine 1.20 MG/DL Estimat Glomerular Filtration 74 ML/MIN Rate Random Glucose 172 MG/DL Lactic Acid Level 1.2 mmol/L Calcium Level 8.7 MG/DL Phosphorus Level 2.9 MG/DL Magnesium Level 2.7 MG/DL Total Bilirubin 0.7 MG/DL Aspartate Amino Transf 193 U/L (AST/SGOT) Alanine Aminotransferase 182 U/L (ALT/SGPT) Alkaline Phosphatase 208 U/L Ammonia 28 MCMOL/L Total Creatine Kinase 2482 U/L Creatine Kinase MB 3.8 NG/ML Creatine Kinase MB % 0.2 % Total Protein 7.5 GM/DL Albumin 2.0 GM/DL Imaging Last Impressions Chest X-Ray 11/29/16 0600 Signed Impressions: Service Date/Time: Tuesday, November 29, 2016 03:23 - CONCLUSION: Modestly improved left base consolidation. Right lung remains clear. Remi Beebe MD Head CT 11/26/16 0000 Signed Impressions: Service Date/Time: November 18:27 - CONCLUSION: 1. No acute intracranial abnormalities. Sinus disease as above. Dominic Bowen MD Lower Extremity Ultrasound 11/22/16 0000 Signed Impressions: Service Date/Time: Tuesday, November 22, 2016 19:29 - CONCLUSION: 1. Negative for deep venous thrombosis. Exam somewhat limited on the right side as above. Dominic Bowen MD Liver Ultrasound 11/20/16 0000 Signed Impressions: Service Date/Time: Sunday, November 20, 2016 15:47 - CONCLUSION: The liver is slightly echogenic which maybe due to fatty infiltration and or hepatocellular dysfunction. Kandi Ace MD Assessment and Plan Problem List: (1) STEMI (ST elevation myocardial infarction) Assessment and Plan: continue med mgt. (2) Cardiogenic shock Assessment and Plan: off pressors IABP 1:2 augmentation consider d/c tomorrow after extubation if it goes well. (3) Dyslipidemia (4) ventilatory dependent resp failure Assessment and Plan: vent management per [facility] (5) Elevated LFTs (6) Sinusitis Assessment and Plan Dr. Alvarez will resume care in the AM. Problem Qualifiers (1) STEMI (ST elevation myocardial infarction): Qualified Code: I21.02 - ST elevation myocardial infarction involving left anterior descending (LAD) coronary artery Epifanio Braswell MD Nov 29, 2016 10:18
[2016-11-29] MEDS: PANTOPRAZOLE SODIUM 40 MG VIAL IV PUSH SCH (13:14)
[2016-11-29] MEDS: VANCOMYCIN INJ 1,750 MG in SODIUM CHLORID 0.9% 500 ML INJ 500 ML IV SCH (13:15)
[2016-11-29] MEDS: ATORVASTATIN 40 MG TAB PO SCH (22:11)
[2016-11-30] VITALS (8 sets, daily range): BP systolic 94–113; BP diastolic 60–89; PULSE 85–108; RESP 18–24; TEMP 97.9–99.2; O2SAT 92–96
[2016-11-30] MEDS ORDERED: ENOXAPARIN SODIUM 80 MG/0.8 ML SYRINGE SQ SCH (03:00)
[2016-11-30] MEDS: PIPERACIL-TAZO 3.375 GM PREMIX 50 ML IV SCH ×3 (05:32→17:50)
[2016-11-30] MEDS: INSULIN NovoLIN REGULAR SUPPLEMENTAL SCALE SQ SCH ×3 (06:00→17:45)
--- NOTE | 2016-11-30 07:50 | PD.CARD.PN ---
Subjective Subjective Remarks denies any chest pain (Gera Garvin) Objective Vital Signs / I&O Vital Signs Date Time Temp Pulse Resp B/P Pulse Ox O2 Delivery O2 Flow Rate FiO2 11/30/16 06:00 100/66 11/30/16 05:00 94/60 11/30/16 04:46 11/30/16 04:45 98/62 11/30/16 04:30 97/60 11/30/16 04:00 90/65 11/30/16 03:00 94/60 11/30/16 03:00 87 112/67 94/60 11/30/16 03:00 96 Nasal Cannula 5.00 11/30/16 03:00 97.9 87 18 94/60 96 112/62 11/30/16 03:00 85 11/30/16 02:00 92/59 11/30/16 01:00 94/61 11/30/16 00:00 87/58 11/29/16 23:00 92 118/63 96/63 11/29/16 23:00 92 11/29/16 23:00 96 Nasal Cannula 5.00 11/29/16 23:00 96/63 11/29/16 23:00 99.1 92 18 96/63 96 118/63 11/29/16 22:00 97/62 11/29/16 21:00 91/62 11/29/16 20:00 92/62 11/29/16 19:00 84 11/29/16 19:00 98.8 85 18 98/63 99 118/74 11/29/16 19:00 99 Nasal Cannula 5.00 11/29/16 19:00 81 118/74 98/63 11/29/16 19:00 98/63 11/29/16 18:00 11/29/16 17:00 11/29/16 16:00 11/29/16 15:25 96 Nasal Cannula 5.00 11/29/16 15:00 93 Mechanical Ventilator 40 11/29/16 15:00 11/29/16 15:00 99.4 75 19 113/73 97 11/29/16 15:00 75 11/29/16 14:00 11/29/16 13:00 11/29/16 12:02 98 40 11/29/16 12:00 11/29/16 11:00 99.3 78 20 100/62 93 11/29/16 11:00 93 Mechanical Ventilator 40 11/29/16 11:00 78 11/29/16 11:00 40 11/29/16 11:00 11/29/16 10:00 11/29/16 09:55 98 40 11/29/16 09:10 97 40 11/29/16 09:00 11/29/16 08:06 40 11/29/16 08:06 97 40 11/29/16 08:00 I/O 11/29/16 11/29/16 11/29/16 11/30/16 11/30/16 11/30/16 07:00 15:00 23:00 07:00 15:00 23:00 Intake Total 1113 ml 1057 ml 130 ml Output Total 900 ml 1700 ml 625 ml Balance 213 ml -643 ml -495 ml Intake Oral 0 ml 0 ml IV Total 218 ml 674 ml 130 ml Tube Feeding 685 ml 323 ml 0 ml Other 210 ml 60 ml 0 ml Output Urine Total 900 ml 1700 ml 625 ml # Bowel Movements 1 0 0 Physical Exam GENERAL: NAD NECK: No JVD. No carotid bruit. CARDIOVASCULAR: Regular rate and rhythm. S1/S2 no murmur, rub, or gallop. RESPIRATORY: No accessory muscle use. rhonchi to auscultation. Breath sounds equal bilaterally. GASTROINTESTINAL: Abdomen soft, non-tender, nondistended. MUSCULOSKELETAL: edema. (Gera Garvin) Assessment and Plan Problem List: (1) STEMI (ST elevation myocardial infarction) (2) Cardiogenic shock (3) Dyslipidemia (4) Elevated LFTs (5) Sinusitis Assessment and Plan STEMI - PCI LAD. aspirin and plavix. When more stable consider staged PCI. CHF, acute systolic, good diuresis - Lovenox okay for this am hypotension - improved. IABP, wean 1:3 at 11 am and plan to pull at noon Anemia - minimize blood draws (Gera Garvin) Assessment and Plan AIBP dc'd reduced lovenox dosing to DVT prophylaxis teran in place OOB to chair & DC teran when possible. Change lasix to PO consider low dose LUIS / BB if BP continues to improve in next few days. (Adebayo Alvarez MD) Problem Qualifiers (1) STEMI (ST elevation myocardial infarction): Qualified Code: I21.02 - ST elevation myocardial infarction involving left anterior descending (LAD) coronary artery Gera Garvin Nov 30, 2016 07:50 Adebayo Alvarez MD Nov 30, 2016 13:07
[2016-11-30] MEDS: CHLORHEXIDINE 0.12% (ORAL KIT) 15 ML CUP MT SCH ×2 (08:00→20:00)
--- NOTE | 2016-11-30 08:05 | HHI.CCPN ---
Subjective Remarks/Hospital Course 65-year-old gentleman has history of hyperlipidemia and asthma, he awoke, had some intermittent chest pain symptoms, began to become progressively worse over the course of the early afternoon. He came over to [facility], where an EKG showed new left bundle with ST-elevation anterolaterally. He was taken emergently to cardiac catheterization lab where his LAD was stented. At the end of the procedure patients suffered near cardiac arrest requiring intubation intra-aortic balloon pump placement and IV vasopressors. Critical care medicine was consulted to manage ventilatory dependent respiratory failure and assist with medical management. 2: Currently sedated on propofol drip. Remains on Osman-Synephrine at 90 g a minute. Tube feeds have not been initiated. No bowel movement. Remains on intra-aortic balloon pump 1:1 11/21: Currently sedated on propofol infusion, Versed and fentanyl drips. Remains on Osman-Synephrine at 65 g a minute. Tube feeds currently at 30 cc an hour. No bowel movement. Remains on intra-aortic balloon pump at 1:1 ratio. 11/22: Tmax 101.1. Currently 99.7. Currently intubated. Osman-Synephrine crease to 15 g per minute. Tube feeds at goal. Remains on intra-aortic balloon pump at 1:1 ratio. 11/23: Remains sedated, orally intubated on mechanical ventilation. Intra-aortic balloon pump remains in place. Transvenous pacer remains in place however has not required pacing for the last few days. 11/24: Remains sedated, orally intubated on mechanical ventilation. Intra-aortic balloon pump in place. Transvenous pacer removed today. 11/25: Remains sedated, orally intubated on mechanical ventilation. Intra-aortic balloon pump in place. Had some epistaxis overnight. Received Lovenox 100 mg 3 AM this morning. I have asked VISUAL ARTIST to hold Lovenox after checking with Dr. Rey in v/o epistaxis. 11/26: Remains sedated/encephalopathic, orally intubated on mechanical ventilation. IABP in place. Epistaxis resolved. Lovenox 80 mg every [address] rey. Failed C Pap trial today and 6 minutes getting diaphoretic and tachypneic. Head CT planned. 11/27 Patient remains sedated with Versed and Precedex and intubated. Tmax 100.2 last night. Did not tolerate CPAP trials yesterday as h became tachycardic On IABP 1:1. On PRVC/AC RR 16, TV 600, IT: 1.0, PEEP:5 and FIO2 40%. Subjective 11/28: T max 101. Currently 98.9. 2 bowel movement. Tolerating tube feeds at goal. Weaning sedation and attempt for spontaneous breathing trials today. Was following commands according to RN yesterday. 11/29: The patient tolerated CPAP trials for the last 2 days all day approximately 16 hours. The patient failed SBT yesterday after 10 minutes. He remains GCS 11T, follows commands, nodding yes and no to questions. 11/30: The patient was successfully extubated yesterday afternoon, currently O2 weaned to 3 L nasal cannula O2 sat ranging 97-99%. Plan for initiation of aggressive pulmonary toileting schedule nebulizers, Acapella,and EZPAP. The patient tolerated ice chips overnight without difficulty, will advanced to clear liquid diet this a.m..IABP 1:2 Objective Vital Signs Date Time Temp Pulse Resp B/P Pulse Ox O2 Delivery O2 Flow Rate FiO2 11/30/16 06:00 100/66 11/30/16 03:00 87 11/30/16 03:00 96 Nasal Cannula 5.00 11/30/16 03:00 97.9 18 11/29/16 15:00 40 Intake and Output 11/29/16 11/29/16 11/30/16 08:00 16:00 00:00 Intake Total 1113 ml 1057 ml Output Total 900 ml 1700 ml Balance 213 ml -643 ml Result Diagram: 11/29/16 0412 11/29/16 0412 Imaging Last Impressions Chest X-Ray 11/29/16 0600 Signed Impressions: Service Date/Time: Tuesday, November 29, 2016 03:23 - CONCLUSION: Modestly improved left base consolidation. Right lung remains clear. Remi Beebe MD Head CT 11/26/16 0000 Signed Impressions: Service Date/Time: November 18:27 - CONCLUSION: 1. No acute intracranial abnormalities. Sinus disease as above. Dominic Bowen MD Lower Extremity Ultrasound 11/22/16 0000 Signed Impressions: Service Date/Time: Tuesday, November 22, 2016 19:29 - CONCLUSION: 1. Negative for deep venous thrombosis. Exam somewhat limited on the right side as above. Dominic Bowen MD Liver Ultrasound 11/20/16 0000 Signed Impressions: Service Date/Time: Sunday, November 20, 2016 15:47 - CONCLUSION: The liver is slightly echogenic which maybe due to fatty infiltration and or hepatocellular dysfunction. Kandi Ace MD Last Impressions Chest X-Ray 11/27/16 0600 Signed Impressions: Service Date/Time: Sunday, November 27, 2016 03:09 - CONCLUSION: Slight worsening left base consolidation. Remi Beebe MD Head CT 11/26/16 0000 Signed Impressions: Service Date/Time: November 18:27 - CONCLUSION: 1. No acute intracranial abnormalities. Sinus disease as above. Dominic Bowen MD Lower Extremity Ultrasound 11/22/16 0000 Signed Impressions: Service Date/Time: Tuesday, November 22, 2016 19:29 - CONCLUSION: 1. Negative for deep venous thrombosis. Exam somewhat limited on the right side as above. Dominic Bowen MD Liver Ultrasound 11/20/16 0000 Signed Impressions: Service Date/Time: Sunday, November 20, 2016 15:47 - CONCLUSION: The liver is slightly echogenic which maybe due to fatty infiltration and or hepatocellular dysfunction. Kandi Ace MD Objective Remarks GENERAL: 65-year-old male lying semirecumbent in bed, appropriately answering questions SKIN: Warm and dry. No rash HEENT: Normocephalic. Pupils equal and reactive, EOMI. Oropharynx pink, moist. Mallampati class III-IV, uvula midline. NECK: Supple, trachea midline. No JVD or lymphadenopathy. CARDIOVASCULAR: Regular rate and rhythm. S1, S2 no S4. IABP 1:2 augmentation. Biphasic Doppler signals bilateral dorsalis pedis RESPIRATORY: Orally intubated on mechanical ventilation. Breath sounds equal bilaterally. GASTROINTESTINAL: Abdomen soft, non-tender, nondistended. Normoactive bowel sounds. MUSCULOSKELETAL: No significant peripheral edema. Right groin is clean dry and intact with balloon pump/venous sheath NEURO: GCS 15, following commands , movement of extremities 4. Procedures Cardiac catheterization - BMS- LAD TVP Urinary Catheter: Yes Madsen insert reason: Measure Accurate Output A/P Problem List: (1) STEMI (ST elevation myocardial infarction) ICD Code: I21.3 Status: Acute (2) Acute respiratory failure ICD Code: J96.00 Status: Acute (3) Cardiogenic shock ICD Code: R57.0 Status: Acute (4) Dyslipidemia ICD Code: E78.5 Status: Acute (5) Obesity hypoventilation syndrome ICD Code: E66.2 Status: Acute Assessment and Plan Neuro/Psych: GCS 15, movement of extremities 4 follows commands Precedex discontinued 11/26 CT brain: No acute intracranial abnormalities/maxillary/ethmoid/sphenoid sinusitis Acetaminophen for fever CV: Acute systolic heart failure Cardiogenic shock Dyslipidemia IABP 1:2 Dr. Rey/cardiology following Monitor HR and BP keep MAP>65mmHg Lasix 40 mg IV once a day for systolic heart failure Echo- EF 20-25%. Distal anterior hypokinesis. Trace TR. Small pericardial effusion Cardiac catheterization - LAD 100% proximally status post BMS, ramus intermedius 90%. Mid circumflex 90%. OM1 90%. RCA 90% proximally stenosed Placement of transvenous pacemaker. In right femoral region, pacer wire removed on 11/24. CT surgery consultation - no intervention planned Continue with aspirin 81 mg daily, Lipitor 40mg qhs, Plavix 75mg daily Continue Lovenox 80 mg twice a day Factor X A level- pending Resp: Acute respiratory failure-resolved Asthma Allergic rhinitis Maintain O2 sat greater than 92%, patient currently on O2 at 3 L/m, continue to wean Aggressive pulmonary toileting-begin EZPAP, Acapella, incentive spirometry every hour while awake Duonebs every 6 hours and as needed Patient has a difficult airway-avoid sedating medications, noted in chart under " allergies", for future admissions or procedures requiring intubation GI: Transaminitis Elevated CPK Ice chips advance to clear liquid diet Continue tubefeeds Protonix for GI prophylaxis Colace/SenokotMiraLAX twice daily for bowel regimen Monitor LFTs slowly trending up Liver ultrasound 2/3 revealed likely MCCALLUM/hepatitis panel negative Check AMA/LINDY/ASMA/ceruloplasmin/CPK-Pending Ammonia level -28 Will consider discontinuing Lipitor if LFTs continue to be elevated. Contiue to monitor LFT's. However, needs lipid-lowering agent light of coronary disease. : Monitor renal function, I/O's, electrolytes replacement per protocol. Lasix 40mg IV daily Cr: 1.2, improving Endo: Sliding-scale insulin with Accu-Cheks to maintain euglycemia. Low regimen. Every 6 hours. Heme: Leukocytosis-resolved Normocytic anemia Monitor CBC, on FeSO4 325mg ID: Sputum wound cx 11/22: Staph Aureus Sinusitis - maxillary/ethmoid/sphenoid bilateral Continue with abx per ID (vancomycin/Zosyn) noted that Cefazolin, Levaquin were discontinued 11/27 Pertinent cultures 11/27 -blood cultures 2/sputum - pending 11/22 - sputum and wound - staph aureus 11/22 - blood cultures 2/urine - no growth to date monitor or signs of infections ( Fever, WBC) MSK: PT evaluation and treat Range of motion therapy only (Functional Maintenance) Access - Peripheral IVs. Central line if indicated - Right venous sheath, right groin/IABP Prophylaxis - GI - Protonix - DVT - Lovenox 80mg BID Critical Care: Level 3 [facility] Care medicine is signing off. Physician Em Schultz Problem Qualifiers (1) STEMI (ST elevation myocardial infarction): Qualified Code: I21.02 - ST elevation myocardial infarction involving left anterior descending (LAD) coronary artery Em Schultz MD Nov 30, 2016 08:05
[2016-11-30] MEDS: GENTAMICIN SULFATE 0.3% OPHT OINT 3.5 GM TUBE EACH EYE SCH (08:06)
[2016-11-30] MEDS: ARTIFICIAL TEARS OPTH OINT 3.5 APPLIC/3.5 GM TUBO EACH EYE SCH (08:07)
[2016-11-30] MEDS: FUROSEMIDE 40 MG/4 ML VIAL IV PUSH SCH (08:07)
[2016-11-30] MEDS: FERROUS SULFATE 325 MG (65 MG ELEMENTAL IRON) TAB PO SCH ×2 (08:08→20:37)
[2016-11-30] MEDS: DOCUSATE SODIUM 100 MG/10 ML UDC PO SCH ×2 (08:08→20:37)
[2016-11-30] MEDS: ASPIRIN 81 MG CHEW TAB PO SCH (08:08)
[2016-11-30] MEDS: POLYETHYLENE GLYCOL 17 GM PKG PO/NG SCH ×2 (08:08→20:37)
[2016-11-30] MEDS: SENNOSIDES SYRUP 8.8 MG/5 ML CUP PO/TUBE SCH ×2 (08:08→20:38)
[2016-11-30] MEDS: CLOPIDOGREL 75 MG TAB PO SCH (08:08)
[2016-11-30] MEDS: SODIUM CHLORIDE 0.9% FLUSH 5 ML FLUSH IVF PRN (08:09)
[2016-11-30] MEDS: RESP: ALBUTEROL 2.5 MG/IPRATROPIUM 0.5 MG NEB (SCH) NEB ×3 (09:34→21:15)
[2016-11-30] MEDS ORDERED: PHARMACY ORDERED LAB XX ONE (12:45)
[2016-11-30] MEDS ORDERED: BACITRACIN OINT 0.9 GM PKT ONE (13:34)
[2016-11-30] MEDS: VANCOMYCIN INJ 1,750 MG in SODIUM CHLORID 0.9% 500 ML INJ 500 ML IV SCH (13:55)
--- NOTE | 2016-11-30 14:17 | HHI.IDPN ---
Note Infectious Disease Note Notes reviewed. Patient off the vent. awake and alert. No complaints. Was out of bed today. Low grade temp. No secretions now. LFT increased. Admitted with myocardial infarction and he was taken for emergent cardiac catheterization and stent. Had cardiac arrest and required intubation and insertion of intraaortic balloon pump. PAST MEDICAL HISTORY: 1. Hyperlipidemia. 2. Asthma. ALLERGIES: NO KNOWN DRUG ALLERGIES. ANTIBIOTICS: Vancomycin. Zosyn. SOCIAL HISTORY: No tobacco, alcohol or illicit drugs. OBJECTIVE: Vital Signs Date Time Temp Pulse Resp B/P Pulse Ox O2 Delivery O2 Flow Rate FiO2 11/30/16 12:00 94/59 11/30/16 12:00 95 11/30/16 12:00 99.2 94 24 101/69 96 11/30/16 12:00 95 Nasal Cannula 6.00 11/30/16 10:00 96/62 11/30/16 08:26 96 Nasal Cannula 3.00 11/30/16 08:00 101 105/69 97/63 11/30/16 08:00 92 Nasal Cannula 4.00 11/30/16 08:00 98.4 89 24 97/63 92 105/89 11/30/16 08:00 88 11/30/16 08:00 94/63 EKG 11/30/16 06:00 100/66 11/30/16 05:00 94/60 11/30/16 04:46 11/30/16 04:45 98/62 11/30/16 04:30 97/60 11/30/16 04:00 90/65 11/30/16 03:00 94/60 11/30/16 03:00 87 112/67 94/60 11/30/16 03:00 96 Nasal Cannula 5.00 11/30/16 03:00 97.9 87 18 94/60 96 112/62 11/30/16 03:00 85 11/30/16 02:00 92/59 11/30/16 01:00 94/61 11/30/16 00:00 87/58 11/29/16 23:00 92 118/63 96/63 11/29/16 23:00 92 11/29/16 23:00 96 Nasal Cannula 5.00 11/29/16 23:00 96/63 11/29/16 23:00 99.1 92 18 96/63 96 118/63 2/12/17 22:00 97/62 11/29/16 21:00 91/62 11/29/16 20:00 92/62 11/29/16 19:00 84 11/29/16 19:00 98.8 85 18 98/63 99 118/74 11/29/16 19:00 99 Nasal Cannula 5.00 11/29/16 19:00 81 118/74 98/63 11/29/16 19:00 98/63 11/29/16 18:00 11/29/16 17:00 11/29/16 16:00 11/29/16 15:25 96 Nasal Cannula 5.00 11/29/16 15:00 93 Mechanical Ventilator 40 11/29/16 15:00 11/29/16 15:00 99.4 75 19 113/73 97 11/29/16 15:00 75 11/29/16 11/29/16 11/30/16 15:00 23:00 07:00 Intake Total 1057 ml 130 ml Output Total 1700 ml 625 ml Balance -643 ml -495 ml Intake Oral 0 ml IV Total 674 ml 130 ml Tube Feeding 323 ml 0 ml Other 60 ml 0 ml Output Urine Total 1700 ml 625 ml # Bowel Movements 0 0 Laboratory Tests Test 11/29/16 04:12 White Blood Count 12.8 TH/MM3 Red Blood Count 3.54 MIL/MM3 Hemoglobin 10.9 GM/DL Hematocrit 32.1 % Mean Corpuscular Volume 90.8 FL Mean Corpuscular Hemoglobin 30.7 PG Mean Corpuscular Hemoglobin 33.8 % Concent Red Cell Distribution Width 13.4 % Platelet Count 329 TH/MM3 Mean Platelet Volume 8.1 FL Neutrophils (%) (Auto) 76.0 % Lymphocytes (%) (Auto) 6.5 % Monocytes (%) (Auto) 10.2 % Eosinophils (%) (Auto) 6.5 % Basophils (%) (Auto) 0.8 % Neutrophils # (Auto) 9.7 TH/MM3 Lymphocytes # (Auto) 0.8 TH/MM3 Monocytes # (Auto) 1.3 TH/MM3 Eosinophils # (Auto) 0.8 TH/MM3 Basophils # (Auto) 0.1 TH/MM3 CBC Comment DIFF FINAL Differential Comment Laboratory Tests Test 11/29/16 04:12 Sodium Level 141 MEQ/L Potassium Level 4.0 MEQ/L Chloride Level 102 MEQ/L Carbon Dioxide Level 32.7 MEQ/L Anion Gap 6 MEQ/L Blood Urea Nitrogen 41 MG/DL Creatinine 1.20 MG/DL Estimat Glomerular Filtration 74 ML/MIN Rate Random Glucose 172 MG/DL Lactic Acid Level 1.2 mmol/L Calcium Level 8.7 MG/DL Phosphorus Level 2.9 MG/DL Magnesium Level 2.7 MG/DL Total Bilirubin 0.7 MG/DL Aspartate Amino Transf 193 U/L (AST/SGOT) Alanine Aminotransferase 182 U/L (ALT/SGPT) Alkaline Phosphatase 208 U/L Ammonia 28 MCMOL/L Total Creatine Kinase 2482 U/L Creatine Kinase MB 3.8 NG/ML Creatine Kinase MB % 0.2 % Total Protein 7.5 GM/DL Albumin 2.0 GM/DL IMAGING: Chest X-Ray 11/29/16599 Signed Impressions: Service Date/Time: Tuesday, November 29, 2016 03:23 - CONCLUSION: Modestly improved left base consolidation. Right lung remains clear. Remi Beebe MD Chest X-Ray 11/27/16599 Signed Impressions: Service Date/Time: Sunday, November 27, 2016 03:09 - CONCLUSION: Slight worsening left base consolidation. Remi Beebe MD Chest X-Ray 11/23/16599 Signed Impressions: Service Date/Time: Wednesday, November 23, 2016 03:04 - CONCLUSION: Left effusion and basilar airspace disease. Derrick Hagan MD Lower Extremity Ultrasound 11/22/16 Signed Impressions: Service Date/Time: Tuesday, November 22, 2016 19:29 - CONCLUSION: 1. Negative for deep venous thrombosis. Exam somewhat limited on the right side as above. Dominic Bowen MD Liver Ultrasound 11/20/16 Signed Impressions: Service Date/Time: Sunday, November 20, 2016 15:47 - CONCLUSION: The liver is slightly echogenic which maybe due to fatty infiltration and or hepatocellular dysfunction. Kandi Ace MD PHYSICAL EXAMINATION: GENERAL: On the ventilator. HEENT: less conjunctival effusion and erythema. NECK: No swelling or adenopathy. LUNGS: Little rhonchi bilateral. HEART: Irregular rate and rhythm. ABDOMEN: Bowel sounds present, soft, Distended. EXTREMITIES: No clubbing or cyanosis or edema. SKIN: No rash. Warm and moist. NEUROLOGIC: Awake and alert. IMPRESSION: 1. Fever. Post intubation and post cardiac arrest. 2. Post myocardial infarction. 3. Acute respiratory failure. 4. Sinusitis. Staph aureus. 5. Pneumonia - Staph aureus. 6. Elevated LFT. Looks stable. RECOMMENDATIONS: 1. Continue Vancomycin. Pharmacy to dose. 2. Continue Zosyn. 3. Monitor temperature. 4. Monitor LFT. D/W and RN. Kamar Freire MD Nov 30, 2016 14:17
[2016-11-30] MEDS: PANTOPRAZOLE SODIUM 40 MG VIAL IV PUSH SCH (15:23)
[2016-11-30] MEDS: ATORVASTATIN 40 MG TAB PO SCH (20:37)
[2016-12-01] VITALS (13 sets, daily range): BP systolic 107–132; BP diastolic 41–74; PULSE 95–113; RESP 16–24; TEMP 98.6–99.9; O2SAT 92–97
[2016-12-01] MEDS ORDERED: MELATONIN 5 MG TAB PO ONE (00:15)
[2016-12-01] MEDS: VANCOMYCIN 1,500 MG/NS 500 ML IV SCH ×4 (00:46→11:58)
[2016-12-01] MEDS: PIPERACIL-TAZO 3.375 GM PREMIX 50 ML IV SCH ×3 (00:46→11:57)
[2016-12-01] MEDS: SODIUM CHLORIDE 0.9% FLUSH 5 ML FLUSH IVF PRN ×2 (03:06→20:49)
[2016-12-01] MEDS: RESP: ALBUTEROL 2.5 MG/IPRATROPIUM 0.5 MG NEB (SCH) NEB ×2 (03:34→08:47)
[2016-12-01 04:22] LABS: HEMATOCRIT 34.4 % (39.0-51.0); MEAN CELL VOLUME 91.1 FL (80.0-100.0); MEAN CORPUSCULAR HEMOGLOBIN 29.9 PG (27.0-34.0); MEAN CORPUSCULAR HGB CONC 32.8 % (32.0-36.0); PLATELET COUNT 372 TH/MM3 (150-450); RED BLOOD COUNT 3.78 MIL/MM3 (4.50-5.90); RED CELL DISTRIBUTION WIDTH 13.3 % (11.6-17.2); REVIEW FLAG FINAL; WHITE BLOOD COUNT 11.1 TH/MM3 (4.0-11.0)
[2016-12-01] MEDS: INSULIN NovoLIN REGULAR SUPPLEMENTAL SCALE SQ SCH ×4 (06:00→17:43)
[2016-12-01] MEDS ORDERED: ALBUMIN HUMAN 5% 12.5 GM/250 ML BOTTLE IV ONE (07:08)
[2016-12-01] MEDS: CHLORHEXIDINE 0.12% (ORAL KIT) 15 ML CUP MT SCH ×2 (07:50→20:00)
[2016-12-01] MEDS: CLOPIDOGREL 75 MG TAB PO SCH (08:43)
[2016-12-01] MEDS: ASPIRIN 81 MG CHEW TAB PO SCH (08:43)
[2016-12-01] MEDS: FERROUS SULFATE 325 MG (65 MG ELEMENTAL IRON) TAB PO SCH ×2 (08:43→20:49)
[2016-12-01] MEDS: FUROSEMIDE 40 MG TAB PO SCH (08:43)
[2016-12-01] MEDS: SENNOSIDES SYRUP 8.8 MG/5 ML CUP PO/TUBE SCH (08:44)
[2016-12-01] MEDS: POLYETHYLENE GLYCOL 17 GM PKG PO/NG SCH (08:44)
[2016-12-01] MEDS: ENOXAPARIN SODIUM 40 MG/0.4 ML SYRINGE SQ SCH (08:44)
[2016-12-01] MEDS: DOCUSATE SODIUM 100 MG/10 ML UDC PO SCH (08:44)
[2016-12-01] MEDS ORDERED: ENOXAPARIN SODIUM 80 MG/0.8 ML SYRINGE SQ SCH (09:00)
--- NOTE | 2016-12-01 10:16 | HHI.PR ---
Subjective Remarks No new complaints. No chest pain or SOB. Pt is tolerating PO intake. Objective Vitals Vital Signs Date Time Temp Pulse Resp B/P Pulse Ox O2 Delivery O2 Flow Rate FiO2 12/01/16 08:47 97 Nasal Cannula 4.00 12/01/16 07:00 98.6 98 24 112/73 92 Arterial Line 12/01/16 07:00 98 12/01/16 07:00 94 Nasal Cannula 4.00 12/01/16 03:15 18 12/01/16 03:00 99.2 95 18 107/71 94 12/01/16 03:00 94 4.00 12/01/16 03:00 95 11/30/16 23:00 105 11/30/16 23:00 94 Nasal Cannula 5.00 11/30/16 23:00 98.4 105 20 104/77 94 11/30/16 21:15 95 Nasal Cannula 5.00 11/30/16 19:00 108 11/30/16 19:00 95 Nasal Cannula 5.00 11/30/16 19:00 98.6 108 20 111/78 95 11/30/16 16:00 98.6 102 20 113/77 96 11/30/16 16:00 96 Nasal Cannula 6.00 11/30/16 16:00 102 11/30/16 12:00 94/59 11/30/16 12:00 95 11/30/16 12:00 99.2 94 24 101/69 96 11/30/16 12:00 95 Nasal Cannula 6.00 11/30/16 10:00 96/62 11/30/16 11/30/16 12/01/16 15:00 23:00 07:00 Intake Total 704 ml 800 ml Output Total 1700 ml 750 ml Balance -996 ml 50 ml Intake Oral 104 ml 200 ml IV Total 600 ml 600 ml Output Urine Total 1700 ml 750 ml # Bowel Movements 0 0 Result Diagram: 12/01/16 0321 12/01/16 0321 Imaging Last Impressions Chest X-Ray 11/29/16 0600 Signed Impressions: Service Date/Time: Tuesday, November 29, 2016 03:23 - CONCLUSION: Modestly improved left base consolidation. Right lung remains clear. Remi Beebe MD Head CT 11/26/16 0000 Signed Impressions: Service Date/Time: November 18:27 - CONCLUSION: 1. No acute intracranial abnormalities. Sinus disease as above. Dominic Bowen MD Lower Extremity Ultrasound 11/22/16 0000 Signed Impressions: Service Date/Time: Tuesday, November 22, 2016 19:29 - CONCLUSION: 1. Negative for deep venous thrombosis. Exam somewhat limited on the right side as above. Dominic Bowen MD Liver Ultrasound 11/20/16 0000 Signed Impressions: Service Date/Time: Sunday, November 20, 2016 15:47 - CONCLUSION: The liver is slightly echogenic which maybe due to fatty infiltration and or hepatocellular dysfunction. Kandi Ace MD Objective Remarks GENERAL: This is a well-nourished, well-developed patient, in no apparent distress. CARDIOVASCULAR: Regular rate and rhythm without murmurs, gallops, or rubs. RESPIRATORY: Clear to auscultation. Breath sounds equal bilaterally. No wheezes , rales, or rhonchi. GASTROINTESTINAL: Abdomen soft, non-tender, nondistended. Normal active bowel sounds MUSCULOSKELETAL: Extremities without clubbing, cyanosis, or edema. NEURO: Alert & Oriented x3. Moves all ext x4 A/P Problem List: (1) STEMI (ST elevation myocardial infarction) Status: Acute Plan: Cardiac catheterization (11/19/16) with Dr. Adebayo Alvarez LAD 100% proximally status post BMS, ramus intermedius 90%. Mid circumflex 90%. OM1 90%. RCA 90% proximally stenosed - Pt will need staged PCI once more stable - Pt had cardiac arrest during cath - following cardiac arrest pt required IABP, pressor agents, and mechanical ventilation. All of these critical care measures have been stopped. - Pt was extubated 11/29/16 - ASA, plavix, lipitor - lovenox for DVT prophylaxis (2) Cardiogenic shock Status: Acute Plan: - see above - resolved (3) Pneumonia due to Staphylococcus aureus Status: Acute Plan: - comgmt with ID, Dr. Andrade - Vancomyin (11/27 - present) - Zosyn (11/27 - present) - duonebs - try to wean NC down to 2L NC (4) Elevated LFTs Status: Acute Plan: - trending downward - repeat LFTs in AM (5) Decubitus ulcer of left buttock Status: Acute Plan: - wound care is following (6) Decubitus ulcer of left heel Status: Acute Plan: - wound care is following (7) Generalized weakness Status: Acute Plan: - PT - will need SNF at the end of current hospitalization Problem Qualifiers (1) STEMI (ST elevation myocardial infarction): Qualified Code: I21.02 - ST elevation myocardial infarction involving left anterior descending (LAD) coronary artery (2) Decubitus ulcer of left buttock: Qualified Code: L89.329 - Decubitus ulcer of left buttock, unspecified ulcer stage (3) Decubitus ulcer of left heel: Qualified Code: L89.629 - Decubitus ulcer of left heel, unspecified ulcer stage Kwan Woodruff DO Dec 01, 2016 10:16
[2016-12-01] MEDS: PANTOPRAZOLE SODIUM 40 MG VIAL IV PUSH SCH (11:58)
--- NOTE | 2016-12-01 12:11 | PD.CARD.PN ---
Subjective Subjective Remarks doing well sitting up in chair Objective Medications Active Medications Albumin Human (Albumin 5% Inj) 12.5 gm STK-MED ONCE IV; Start 12/01/16 at 07:08 ; Stop 12/01/16 at 07:09; Status DC Bacitracin 0.9 gm 0.9 gm STK-MED ONCE .ROUTE; Start 11/30/16 at 13:34; Stop at 13:35; Status DC Docusate Sodium (Colace) 100 mg BID PO; Start 12/01/16 at 21:00 Enoxaparin Sodium (Lovenox Inj) 40 mg DAILY SQ; Start 12/01/16 at 09:00; Stop at 09:00; Status DC Enoxaparin Sodium (Lovenox Inj) 40 mg DAILY SQ Last administered on 12/01/16 08 :44; Admin Dose 40 MG; Start 12/01/16 at 09:00 Furosemide (Lasix) 40 mg DAILY PO Last administered on 12/01/16 08:43; Admin Dose 40 MG; Start 12/01/16 at 09:00 Melatonin (Melatonin) 5 mg ONCE ONCE PO Last administered on 12/01/16 00:06; Admin Dose 5 MG; Start 12/01/16 at 00:15; Stop 12/01/16 at 00:16; Status DC Miscellaneous Information SPECIFIC LAB TO BE JORJE... ONCE ONCE XX; Start at 12:45; Stop 11/30/16 at 12:46; Status DC Miscellaneous Information SPECIFIC LAB TO BE JORJE... ONCE ONCE XX; Start at 12:45; Stop 12/02/16 at 12:46 Vancomycin HCl/ Sodium Chloride (Vancomycin Inj/ NS 500 ml Inj) 515 ml @ 257.5 mls/ hr Q12H IV Last administered on 12/01/16 11:58; Admin Dose 257.5 MLS/HR; Start 12/01/16 at 01:00 Vital Signs / I&O Vital Signs Date Time Temp Pulse Resp B/P Pulse Ox O2 Delivery O2 Flow Rate FiO2 12/01/16 11:00 97 12/01/16 11:00 98.6 98 24 112/73 92 12/01/16 11:00 98 Room Air 12/01/16 08:47 97 Nasal Cannula 4.00 12/01/16 07:00 98.6 98 24 112/73 92 Arterial Line 12/01/16 07:00 98 12/01/16 07:00 94 Nasal Cannula 4.00 12/01/16 03:15 18 12/01/16 03:00 99.2 95 18 107/71 94 12/01/16 03:00 94 4.00 12/01/16 03:00 95 11/30/16 23:00 105 11/30/16 23:00 94 Nasal Cannula 5.00 11/30/16 23:00 98.4 105 20 104/77 94 11/30/16 21:15 95 Nasal Cannula 5.00 11/30/16 19:00 108 11/30/16 19:00 95 Nasal Cannula 5.00 11/30/16 19:00 98.6 108 20 111/78 95 11/30/16 16:00 98.6 102 20 113/77 96 11/30/16 16:00 96 Nasal Cannula 6.00 11/30/16 16:00 102 I/O 11/30/16 11/30/16 11/30/16 12/01/16 12/01/16 12/01/16 07:00 15:00 23:00 07:00 15:00 23:00 Intake Total 130 ml 704 ml 800 ml Output Total 625 ml 1700 ml 750 ml Balance -495 ml -996 ml 50 ml Intake Oral 104 ml 200 ml IV Total 130 ml 600 ml 600 ml Tube Feeding 0 ml Other 0 ml Output Urine Total 625 ml 1700 ml 750 ml # Bowel Movements 0 0 0 Physical Exam CARDIOVASCULAR: Regular rate and rhythm RESPIRATORY: Breath sounds equal bilaterally. GASTROINTESTINAL: Abdomen nnondistended. MUSCULOSKELETAL: No cyanosis, or edema. decreased pulses BLE. Laboratory Laboratory Tests Test 11/30/16 12/01/16 12:40 03:21 Vancomycin Level Trough 7.4 MCG/ML White Blood Count 11.1 TH/MM3 Red Blood Count 3.78 MIL/MM3 Hemoglobin 11.3 GM/DL Hematocrit 34.4 % Mean Corpuscular Volume 91.1 FL Mean Corpuscular Hemoglobin 29.9 PG Mean Corpuscular Hemoglobin 32.8 % Concent Red Cell Distribution Width 13.3 % Platelet Count 372 TH/MM3 Mean Platelet Volume 8.5 FL Creatinine 1.01 MG/DL Estimat Glomerular Filtration 90 ML/MIN Rate Assessment and Plan Problem List: (1) STEMI (ST elevation myocardial infarction) (2) Cardiogenic shock (3) Dyslipidemia (4) Elevated LFTs (5) Sinusitis Assessment and Plan STEMI - doing well. plan is to eventually discharge, allow for full recovery and then consider staged PCI. asa plavix cardiogenic shock - recovered. may consider low dose acei if BP remains stable. ambulate DC teran in next 48 hrs cont lasix 40 daily Cr stable FU LFTs minimize blood draws due to progressive anemia transfer to [facility] Problem Qualifiers (1) STEMI (ST elevation myocardial infarction): Qualified Code: I21.02 - ST elevation myocardial infarction involving left anterior descending (LAD) coronary artery Adebayo Alvarez MD Dec 01, 2016 12:10
--- NOTE | 2016-12-01 14:33 | HHI.IDPN ---
Note Infectious Disease Note Patient on room air. Says he feels a little chilly. Awake and alert. Afebrile. No chest pain. Looks a bit lethargic. Admitted with myocardial infarction and he was taken for emergent cardiac catheterization and stent. Had cardiac arrest and required intubation and insertion of intraaortic balloon pump. PAST MEDICAL HISTORY: 1. Hyperlipidemia. 2. Asthma. ALLERGIES: NO KNOWN DRUG ALLERGIES. ANTIBIOTICS: Vancomycin. Zosyn. SOCIAL HISTORY: No tobacco, alcohol or illicit drugs. OBJECTIVE: Vital Signs Date Time Temp Pulse Resp B/P Pulse Ox O2 Delivery O2 Flow Rate FiO2 12/01/16 14:09 98.9 97 16 129/70 94 12/01/16 11:00 97 12/01/16 11:00 98.6 98 24 112/73 92 12/01/16 11:00 98 Room Air 12/01/16 08:47 97 Nasal Cannula 4.00 12/01/16 07:00 98.6 98 24 112/73 92 Arterial Line 12/01/16 07:00 98 12/01/16 07:00 94 Nasal Cannula 4.00 12/01/16 03:15 18 12/01/16 03:00 99.2 95 18 107/71 94 12/01/16 03:00 94 4.00 12/01/16 03:00 95 11/30/16 23:00 105 11/30/16 23:00 94 Nasal Cannula 5.00 11/30/16 23:00 98.4 105 20 104/77 94 11/30/16 21:15 95 Nasal Cannula 5.00 11/30/16 19:00 108 11/30/16 19:00 95 Nasal Cannula 5.00 11/30/16 19:00 98.6 108 20 111/78 95 11/30/16 16:00 98.6 102 20 113/77 96 11/30/16 16:00 96 Nasal Cannula 6.00 11/30/16 16:00 102 11/30/16 11/30/16 12/01/16 15:00 23:00 07:00 Intake Total 704 ml 800 ml Output Total 1700 ml 750 ml Balance -996 ml 50 ml Intake Oral 104 ml 200 ml IV Total 600 ml 600 ml Output Urine Total 1700 ml 750 ml # Bowel Movements 0 0 Laboratory Tests Test 12/01/16 03:21 White Blood Count 11.1 TH/MM3 Red Blood Count 3.78 MIL/MM3 Hemoglobin 11.3 GM/DL Hematocrit 34.4 % Mean Corpuscular Volume 91.1 FL Mean Corpuscular Hemoglobin 29.9 PG Mean Corpuscular Hemoglobin 32.8 % Concent Red Cell Distribution Width 13.3 % Platelet Count 372 TH/MM3 Mean Platelet Volume 8.5 FL Laboratory Tests Test 12/01/16 03:21 Creatinine 1.01 MG/DL Estimat Glomerular Filtration 90 ML/MIN Rate IMAGING: Chest X-Ray 11/29/16599 Signed Impressions: Service Date/Time: Tuesday, November 29, 2016 03:23 - CONCLUSION: Modestly improved left base consolidation. Right lung remains clear. Remi Beebe MD Chest X-Ray 11/27/16599 Signed Impressions: Service Date/Time: Sunday, November 27, 2016 03:09 - CONCLUSION: Slight worsening left base consolidation. Remi Beebe MD Chest X-Ray 11/23/16599 Signed Impressions: Service Date/Time: Wednesday, November 23, 2016 03:04 - CONCLUSION: Left effusion and basilar airspace disease. Derrick Hagan MD Lower Extremity Ultrasound 11/22/16 0000 Signed Impressions: Service Date/Time: Tuesday, November 22, 2016 19:29 - CONCLUSION: 1. Negative for deep venous thrombosis. Exam somewhat limited on the right side as above. Dominic Bowen MD Liver Ultrasound 11/20/16 0000 Signed Impressions: Service Date/Time: Sunday, November 20, 2016 15:47 - CONCLUSION: The liver is slightly echogenic which maybe due to fatty infiltration and or hepatocellular dysfunction. Kandi Ace MD PHYSICAL EXAMINATION: GENERAL: On nasal O2. Awake. No distress. HEENT: less conjunctival effusion and erythema. NECK: No swelling or adenopathy. LUNGS: Basilar rhonchi. HEART: Irregular rate and rhythm. ABDOMEN: Bowel sounds present, soft, Distended. EXTREMITIES: No clubbing or cyanosis or edema. SKIN: No rash. Warm and moist. NEUROLOGIC: Awake and alert. IMPRESSION: 1. Fever. Post intubation and post cardiac arrest. Temp improved. 2. Post myocardial infarction. 3. Acute respiratory failure. Improved. 4. Sinusitis. Staph aureus. 5. Pneumonia - Staph aureus. MSSA. 6. Elevated LFT. RECOMMENDATIONS: 1. Stop Vancomycin. Pharmacy to dose. 2. Stop Zosyn. 3. Start Ancef. 4. Repeat CXR in am. 5. Switch to Po if CXR improved. 6. Monitor temperature. 7. Monitor LFT. Kamar Freire MD Dec 01, 2016 14:33
[2016-12-01] MEDS: DOCUSATE SODIUM 100 MG CAP PO SCH (20:49)
[2016-12-01] MEDS: ATORVASTATIN 40 MG TAB PO SCH (20:49)
[2016-12-02] VITALS (22 sets, daily range): BP systolic 122–133; BP diastolic 73–98; PULSE 86–108; RESP 16–18; TEMP 98.4–99.7; O2SAT 94–100
[2016-12-02] MEDS: RESP: ALBUTEROL 2.5 MG/IPRATROPIUM 0.5 MG NEB (PRN) NEB (00:41)
--- NOTE | 2016-12-02 05:07 | RADRPT ---
EXAM DATE/TIME: 12/02/2016 04:18 [facility] COMPARISON: CHEST SINGLE AP, November 29, 2016, 3:23. INDICATIONS : Shortness of breath, possible pulmonary disease. MEDICAL HISTORY : Myocardial infarction. Asthma SURGICAL HISTORY : None. ENCOUNTER: Subsequent ACUITY: 1 week PAIN SCORE: Non-responsive. LOCATION: Bilateral chest FINDINGS: The cardiac silhouette is enlarged in transverse diameter. There is elevation of the left hemidiaphra gm. There is subsegmental atelectasis in the left base. The right lung is free of acute parenchymal o pacity. CONCLUSION: 1. Cardiomegaly 2. Elevated left hemidiaphragm with subsegmental atelectasis left base. There has been no significant change when compared to the prior exam. Jose J Marte MD on December 02, 2016 at 5:05 Board Certified Radiologist. This report was verified electronically.
[2016-12-02] MEDS: INSULIN NovoLIN REGULAR SUPPLEMENTAL SCALE SQ SCH ×5 (06:00→23:45)
[2016-12-02 06:29] LABS: AUTOMATED NEUTROPHIL # 7.6 TH/MM3 (1.8-7.7); BASOPHIL # 0.1 TH/MM3 (0-0.2); EOSINOPHIL # 0.8 TH/MM3 (0-0.4); EOSINOPHIL % 7.5 % (0.0-4.0); HEMO FLAGS DIFF FINAL; LYMPH % 14.5 % (9.0-44.0); LYMPHOCYTE # 1.6 TH/MM3 (1.0-4.8); MEAN CELL VOLUME 90.4 FL (80.0-100.0); MEAN CORPUSCULAR HEMOGLOBIN 30.6 PG (27.0-34.0); MEAN CORPUSCULAR HGB CONC 33.9 % (32.0-36.0); MONO % 6.4 % (0.0-8.0); NEUT % 70.6 % (16.0-70.0); PLATELET COUNT 405 TH/MM3 (150-450); RED BLOOD COUNT 3.77 MIL/MM3 (4.50-5.90); WHITE BLOOD COUNT 10.8 TH/MM3 (4.0-11.0)
[2016-12-02 06:57] LABS: BICARBONATE 28.1 MEQ/L (21.0-32.0); MAGNESIUM 2.4 MG/DL (1.5-2.5); POTASSIUM 3.4 MEQ/L (3.5-5.1)
[2016-12-02 06:59] LABS: INDIRECT BILIRUBIN 0.4 MG/DL (0.0-0.8); TOTAL BILIRUBIN ADULT 0.8 MG/DL (0.2-1.0)
--- NOTE | 2016-12-02 07:33 | PD.CARD.PN ---
Subjective Subjective Remarks denies any chest pain (eGra Garvin) Objective Vital Signs / I&O Vital Signs Date Time Temp Pulse Resp B/P Pulse Ox O2 Delivery O2 Flow Rate FiO2 12/02/16 07:27 96 Nasal Cannula 2.00 12/02/16 04:23 98.9 108 16 123/98 98 12/02/16 03:30 101 12/02/16 03:30 93 Room Air 12/02/16 00:44 94 Nasal Cannula 2.00 12/02/16 00:00 108 12/01/16 23:29 108 12/01/16 23:29 99.9 108 18 116/41 94 12/01/16 23:29 93 Room Air 12/01/16 22:00 113 12/01/16 21:17 93 21 12/01/16 21:00 109 12/01/16 20:00 106 12/01/16 19:29 98.9 104 16 121/74 93 12/01/16 19:29 93 Room Air 12/01/16 19:00 103 12/01/16 15:00 103 12/01/16 15:00 93 Room Air 12/01/16 15:00 98.9 99 16 132/66 93 12/01/16 14:09 98.9 97 16 129/70 94 12/01/16 11:00 97 12/01/16 11:00 98.6 98 24 112/73 92 12/01/16 11:00 98 Room Air 12/01/16 08:47 97 Nasal Cannula 4.00 I/O 12/01/16 12/01/16 12/01/16 12/02/16 12/02/16 12/02/16 07:00 15:00 23:00 07:00 15:00 23:00 Intake Total 800 ml 200 ml 240 ml Output Total 750 ml 950 ml 500 ml Balance 50 ml -750 ml -260 ml Intake Oral 200 ml 240 ml IV Total 600 ml 200 ml Output Urine Total 750 ml 950 ml 500 ml # Bowel Movements 0 1 Physical Exam GENERAL: NAD NECK: No JVD. No carotid bruit. CARDIOVASCULAR: Regular rate and rhythm. S1/S2 no murmur, rub, or gallop. RESPIRATORY: No accessory muscle use. rhonchi to auscultation. Breath sounds equal bilaterally. GASTROINTESTINAL: Abdomen soft, non-tender, nondistended. MUSCULOSKELETAL: edema. Laboratory Laboratory Tests Test 12/02/16 05:20 White Blood Count 10.8 TH/MM3 Red Blood Count 3.77 MIL/MM3 Hemoglobin 11.5 GM/DL Hematocrit 34.0 % Mean Corpuscular Volume 90.4 FL Mean Corpuscular Hemoglobin 30.6 PG Mean Corpuscular Hemoglobin 33.9 % Concent Red Cell Distribution Width 13.0 % Platelet Count 405 TH/MM3 Mean Platelet Volume 8.2 FL Neutrophils (%) (Auto) 70.6 % Lymphocytes (%) (Auto) 14.5 % Monocytes (%) (Auto) 6.4 % Eosinophils (%) (Auto) 7.5 % Basophils (%) (Auto) 1.0 % Neutrophils # (Auto) 7.6 TH/MM3 Lymphocytes # (Auto) 1.6 TH/MM3 Monocytes # (Auto) 0.7 TH/MM3 Eosinophils # (Auto) 0.8 TH/MM3 Basophils # (Auto) 0.1 TH/MM3 CBC Comment DIFF FINAL Differential Comment Sodium Level 139 MEQ/L Potassium Level 3.4 MEQ/L Chloride Level 102 MEQ/L Carbon Dioxide Level 28.1 MEQ/L Anion Gap 9 MEQ/L Blood Urea Nitrogen 28 MG/DL Creatinine 0.91 MG/DL Estimat Glomerular Filtration 101 ML/MIN Rate Random Glucose 108 MG/DL Calcium Level 8.9 MG/DL Magnesium Level 2.4 MG/DL Total Bilirubin 0.8 MG/DL Direct Bilirubin 0.4 MG/DL Indirect Bilirubin 0.4 MG/DL Aspartate Amino Transf 100 U/L (AST/SGOT) Alanine Aminotransferase 156 U/L (ALT/SGPT) Alkaline Phosphatase 200 U/L Total Protein 7.6 GM/DL Albumin 2.1 GM/DL (Gera Garvin) Assessment and Plan Problem List: (1) STEMI (ST elevation myocardial infarction) (2) Cardiogenic shock (3) Dyslipidemia (4) Elevated LFTs Assessment and Plan STEMI - PCI LAD. aspirin and plavix. Moving toward discharge and once more stable plan staged PCI. CHF systolic, good diuresis Anemia - stable, minimize blood draws hypokalemia - replete (Gera Garvin) Assessment and Plan doing very well BIRGIT teran continue diuresis. follow Cr. LFTs elevated. will DC statin for now. I suspect it was shock liver and will recover. May consider statin on outpatient basis PT/OT CM consult. DC planning. ambulate with assistance. Fall precautions. (Adebayo Alvarez MD) Problem Qualifiers (1) STEMI (ST elevation myocardial infarction): Qualified Code: I21.02 - ST elevation myocardial infarction involving left anterior descending (LAD) coronary artery Gera Garvin Dec 02, 2016 07:33 Adeabyo Alvarez MD Dec 02, 2016 14:24
[2016-12-02] MEDS: CHLORHEXIDINE 0.12% (ORAL KIT) 15 ML CUP MT SCH ×2 (08:00→20:00)
[2016-12-02] MEDS: POTASSIUM CHLORIDE 20 MEQ CONTROLLED RELEASE TAB PO SCH (08:28)
[2016-12-02] MEDS: FUROSEMIDE 40 MG TAB PO SCH (08:28)
[2016-12-02] MEDS: DOCUSATE SODIUM 100 MG CAP PO SCH ×2 (08:28→21:12)
[2016-12-02] MEDS: CLOPIDOGREL 75 MG TAB PO SCH (08:28)
[2016-12-02] MEDS: ASPIRIN 81 MG CHEW TAB PO SCH (08:28)
[2016-12-02] MEDS: FERROUS SULFATE 325 MG (65 MG ELEMENTAL IRON) TAB PO SCH ×2 (08:28→21:12)
[2016-12-02] MEDS: ENOXAPARIN SODIUM 40 MG/0.4 ML SYRINGE SQ SCH (08:29)
[2016-12-02 11:57] LABS: MITOCHONDRIAL ABS LESS THAN 20.0 U (())
[2016-12-02] MEDS: PANTOPRAZOLE SODIUM 40 MG VIAL IV PUSH SCH (12:21)
[2016-12-02] MEDS ORDERED: PHARMACY ORDERED LAB XX ONE (12:45)
--- NOTE | 2016-12-02 16:39 | HHI.PR ---
Subjective Remarks No new complaints. Objective Vitals Vital Signs Date Time Temp Pulse Resp B/P Pulse Ox O2 Delivery O2 Flow Rate FiO2 12/02/16 16:00 105 12/02/16 15:00 Nasal Cannula 2.00 12/02/16 15:00 92 12/02/16 14:00 94 12/02/16 12:00 91 12/02/16 11:00 92 12/02/16 11:00 98.5 90 18 122/73 97 12/02/16 11:00 Room Air 12/02/16 10:00 98 12/02/16 09:00 99 12/02/16 08:00 97 Nasal Cannula 2.00 12/02/16 08:00 98 12/02/16 07:27 96 Nasal Cannula 2.00 12/02/16 07:00 98.4 86 18 133/86 100 12/02/16 07:00 99 12/02/16 04:23 98.9 108 16 123/98 98 12/02/16 03:30 101 12/02/16 03:30 93 Room Air 12/02/16 00:44 94 Nasal Cannula 2.00 12/02/16 00:00 108 12/01/16 23:29 108 12/01/16 23:29 99.9 108 18 116/41 94 12/01/16 23:29 93 Room Air 12/01/16 22:00 113 12/01/16 21:17 93 21 12/01/16 21:00 109 12/01/16 20:00 106 12/01/16 19:29 98.9 104 16 121/74 93 12/01/16 19:29 93 Room Air 12/01/16 19:00 103 12/01/16 12/01/16 12/02/16 15:00 23:00 07:00 Intake Total 200 ml 240 ml Output Total 950 ml 500 ml Balance -750 ml -260 ml Intake Oral 240 ml IV Total 200 ml Output Urine Total 950 ml 500 ml # Bowel Movements 1 Result Diagram: 12/02/16 0520 12/02/16 0520 Imaging Last Impressions Chest X-Ray 11/29/16 0600 Signed Impressions: Service Date/Time: Tuesday, November 29, 2016 03:23 - CONCLUSION: Modestly improved left base consolidation. Right lung remains clear. Remi Beebe MD Head CT 11/26/16 0000 Signed Impressions: Service Date/Time: November 18:27 - CONCLUSION: 1. No acute intracranial abnormalities. Sinus disease as above. Dominic Bowen MD Lower Extremity Ultrasound 11/22/16 0000 Signed Impressions: Service Date/Time: Tuesday, November 22, 2016 19:29 - CONCLUSION: 1. Negative for deep venous thrombosis. Exam somewhat limited on the right side as above. Dominic Bowen MD Liver Ultrasound 11/20/16 0000 Signed Impressions: Service Date/Time: Sunday, November 20, 2016 15:47 - CONCLUSION: The liver is slightly echogenic which maybe due to fatty infiltration and or hepatocellular dysfunction. Kandi Ace MD Objective Remarks GENERAL: This is a well-nourished, well-developed patient, in no apparent distress. CARDIOVASCULAR: Regular rate and rhythm without murmurs, gallops, or rubs. RESPIRATORY: Clear to auscultation. Breath sounds equal bilaterally. No wheezes , rales, or rhonchi. GASTROINTESTINAL: Abdomen soft, non-tender, nondistended. Normal active bowel sounds MUSCULOSKELETAL: Extremities without clubbing, cyanosis, or edema. NEURO: Alert & Oriented x3. Moves all ext x4 A/P Problem List: (1) STEMI (ST elevation myocardial infarction) Status: Acute Plan: Cardiac catheterization (11/19/16) with Dr. Adebayo Alvarez LAD 100% proximally status post BMS, ramus intermedius 90%. Mid circumflex 90%. OM1 90%. RCA 90% proximally stenosed - Pt will need staged PCI once more stable - Pt had cardiac arrest during cath - following cardiac arrest pt required IABP, pressor agents, and mechanical ventilation. All of these critical care measures have been stopped. - Pt was extubated 11/29/16 - ASA, plavix, - statin stopped for now d/t elevated transaminases, likely d/t shock liver - lovenox for DVT prophylaxis (2) Cardiogenic shock Status: Acute Plan: - see above - resolved (3) Pneumonia due to Staphylococcus aureus Status: Acute Plan: - comgmt with ID, Dr. Andrade - Vancomyin (11/27 - 12/01) - Zosyn (11/27 - 12/01) - Ancef (started 12/02) - duonebs - try to wean NC down to 2L NC (4) Elevated LFTs Status: Acute Plan: - trending downward (5) Decubitus ulcer of left buttock Status: Acute Plan: - wound care is following (6) Decubitus ulcer of left heel Status: Acute Plan: - wound care is following (7) Generalized weakness Status: Acute Plan: - PT - will need SNF at the end of current hospitalization Problem Qualifiers (1) STEMI (ST elevation myocardial infarction): Qualified Code: I21.02 - ST elevation myocardial infarction involving left anterior descending (LAD) coronary artery (2) Decubitus ulcer of left buttock: Qualified Code: L89.329 - Decubitus ulcer of left buttock, unspecified ulcer stage (3) Decubitus ulcer of left heel: Qualified Code: L89.629 - Decubitus ulcer of left heel, unspecified ulcer stage Kwan Woodruff DO Dec 02, 2016 16:39
[2016-12-02] MEDS ORDERED: ACETAMINOPHEN/HYDROcodone 325 MG/5 MG TAB PO PRN (16:45)
[2016-12-02] MEDS ORDERED: POTASSIUM CHLORIDE 20 MEQ CONTROLLED RELEASE TAB PO ONE (17:00)
[2016-12-03] VITALS (19 sets, daily range): BP systolic 114–121; BP diastolic 74–81; PULSE 94–119; RESP 16–20; TEMP 97.9–99.1; O2SAT 93–99
[2016-12-03] MEDS: INSULIN NovoLIN REGULAR SUPPLEMENTAL SCALE SQ SCH (06:00)
--- NOTE | 2016-12-03 07:41 | PD.CARD.PN ---
Subjective Subjective Remarks denies chest pain, was able to ambulate yesterday (Gera Garvin) Objective Vital Signs / I&O Vital Signs Date Time Temp Pulse Resp B/P Pulse Ox O2 Delivery O2 Flow Rate FiO2 12/03/16 07:35 93 21 12/03/16 06:00 98 12/03/16 05:40 101 18 114/74 97 12/03/16 05:00 102 12/03/16 04:00 100 12/03/16 03:15 98.5 94 16 118/78 94 12/03/16 03:15 94 Room Air 12/03/16 03:00 97 12/03/16 02:00 98 12/03/16 01:00 99 12/03/16 00:00 95 12/03/16 00:00 95 Room Air 12/03/16 00:00 99.1 95 16 118/81 95 12/02/16 23:00 100 12/02/16 22:00 98 12/02/16 21:00 97 12/02/16 20:00 99.7 97 16 126/79 96 12/02/16 20:00 97 12/02/16 20:00 96 Room Air 12/02/16 19:45 96 Nasal Cannula 2.00 12/02/16 19:00 100 12/02/16 18:00 101 12/02/16 17:00 98 12/02/16 16:00 105 12/02/16 15:00 98.9 100 18 125/78 96 12/02/16 15:00 Nasal Cannula 2.00 12/02/16 15:00 92 12/02/16 14:00 94 12/02/16 12:00 91 12/02/16 11:00 92 12/02/16 11:00 98.5 90 18 122/73 97 12/02/16 11:00 Room Air 12/02/16 10:00 98 12/02/16 09:00 99 12/02/16 08:00 97 Nasal Cannula 2.00 12/02/16 08:00 98 I/O 12/02/16 12/02/16 12/02/16 12/03/16 12/03/16 12/03/16 07:00 15:00 23:00 07:00 15:00 23:00 Intake Total 240 ml 810 ml 340 ml Output Total 500 ml 550 ml 725 ml Balance -260 ml 260 ml -385 ml Intake Oral 240 ml 710 ml 240 ml IV Total 100 ml 100 ml Output Urine Total 500 ml 550 ml 725 ml # Bowel Movements 1 1 0 Physical Exam GENERAL: NAD NECK: No JVD. No carotid bruit. CARDIOVASCULAR: Regular rate and rhythm. S1/S2 no murmur, rub, or gallop. RESPIRATORY: No accessory muscle use. rhonchi to auscultation. Breath sounds equal bilaterally. GASTROINTESTINAL: Abdomen soft, non-tender, nondistended. MUSCULOSKELETAL: no edema. Laboratory Laboratory Tests Test 12/03/16 04:53 Creatinine 0.93 MG/DL Estimat Glomerular Filtration 99 ML/MIN Rate (Gera Garvin) Assessment and Plan Problem List: (1) STEMI (ST elevation myocardial infarction) (2) Cardiogenic shock (3) Dyslipidemia (4) Elevated LFTs Assessment and Plan STEMI - PCI LAD. aspirin and plavix. Moving toward discharge and once more stable plan staged PCI. CHF systolic, good diuresis Anemia - stable, minimize blood draws hypokalemia - check K LFTs - trending down (Gera Garvin) Assessment and Plan doing well DC planning for rehab cont lasix 40 daily start low dose ACEi no BB due to BP no statin due to LFTs FU in OPD in 2 weeks cont asa and plavix (Adebayo Alvarez MD) Problem Qualifiers (1) STEMI (ST elevation myocardial infarction): Qualified Code: I21.02 - ST elevation myocardial infarction involving left anterior descending (LAD) coronary artery Gera Garvin Dec 03, 2016 07:41 Adebayo Alvarez MD Dec 03, 2016 12:14
[2016-12-03] MEDS: FUROSEMIDE 40 MG TAB PO SCH (09:35)
[2016-12-03] MEDS: POTASSIUM CHLORIDE 20 MEQ CONTROLLED RELEASE TAB PO SCH (09:35)
[2016-12-03] MEDS: DOCUSATE SODIUM 100 MG CAP PO SCH (09:35)
[2016-12-03] MEDS: FERROUS SULFATE 325 MG (65 MG ELEMENTAL IRON) TAB PO SCH (09:36)
[2016-12-03] MEDS: CLOPIDOGREL 75 MG TAB PO SCH (09:36)
[2016-12-03] MEDS: ENOXAPARIN SODIUM 40 MG/0.4 ML SYRINGE SQ SCH (09:47)
--- NOTE | 2016-12-03 10:04 | HHI.PR ---
Subjective Remarks Pt reportedly fell this morning and reports that he just wanted to get up and walk but was too weak. He is now agreeable to rehab. Objective Vitals Vital Signs Date Time Temp Pulse Resp B/P Pulse Ox O2 Delivery O2 Flow Rate FiO2 12/03/16 07:35 93 21 12/03/16 06:00 98 12/03/16 05:40 101 18 114/74 97 12/03/16 05:00 102 12/03/16 04:00 100 12/03/16 03:15 98.5 94 16 118/78 94 12/03/16 03:15 94 Room Air 12/03/16 03:00 97 12/03/16 02:00 98 12/03/16 01:00 99 12/03/16 00:00 95 12/03/16 00:00 95 Room Air 12/03/16 00:00 99.1 95 16 118/81 95 12/02/16 23:00 100 12/02/16 22:00 98 12/02/16 21:00 97 12/02/16 20:00 99.7 97 16 126/79 96 12/02/16 20:00 97 12/02/16 20:00 96 Room Air 12/02/16 19:45 96 Nasal Cannula 2.00 12/02/16 19:00 100 12/02/16 18:00 101 12/02/16 17:00 98 12/02/16 16:00 105 12/02/16 15:00 98.9 100 18 125/78 96 12/02/16 15:00 Nasal Cannula 2.00 12/02/16 15:00 92 12/02/16 14:00 94 12/02/16 12:00 91 12/02/16 11:00 92 12/02/16 11:00 98.5 90 18 122/73 97 12/02/16 11:00 Room Air 12/02/16 10:00 98 12/02/16 12/02/16 12/03/16 15:00 23:00 07:00 Intake Total 810 ml 340 ml Output Total 550 ml 725 ml Balance 260 ml -385 ml Intake Oral 710 ml 240 ml IV Total 100 ml 100 ml Output Urine Total 550 ml 725 ml # Bowel Movements 1 0 Result Diagram: 12/02/16 0520 12/03/16 0453 Other Results Laboratory Tests Test 12/02/16 12/03/16 05:20 04:53 White Blood Count 10.8 TH/MM3 Red Blood Count 3.77 MIL/MM3 Hemoglobin 11.5 GM/DL Hematocrit 34.0 % Mean Corpuscular Volume 90.4 FL Mean Corpuscular Hemoglobin 30.6 PG Mean Corpuscular Hemoglobin 33.9 % Concent Red Cell Distribution Width 13.0 % Platelet Count 405 TH/MM3 Mean Platelet Volume 8.2 FL Neutrophils (%) (Auto) 70.6 % Lymphocytes (%) (Auto) 14.5 % Monocytes (%) (Auto) 6.4 % Eosinophils (%) (Auto) 7.5 % Basophils (%) (Auto) 1.0 % Neutrophils # (Auto) 7.6 TH/MM3 Lymphocytes # (Auto) 1.6 TH/MM3 Monocytes # (Auto) 0.7 TH/MM3 Eosinophils # (Auto) 0.8 TH/MM3 Basophils # (Auto) 0.1 TH/MM3 CBC Comment DIFF FINAL Differential Comment Sodium Level 139 MEQ/L Potassium Level 3.4 MEQ/L Chloride Level 102 MEQ/L Carbon Dioxide Level 28.1 MEQ/L Anion Gap 9 MEQ/L Blood Urea Nitrogen 28 MG/DL Creatinine 0.91 MG/DL 0.93 MG/DL Estimat Glomerular Filtration 101 ML/MIN 99 ML/MIN Rate Random Glucose 108 MG/DL Calcium Level 8.9 MG/DL Magnesium Level 2.4 MG/DL Total Bilirubin 0.8 MG/DL Direct Bilirubin 0.4 MG/DL Indirect Bilirubin 0.4 MG/DL Aspartate Amino Transf 100 U/L (AST/SGOT) Alanine Aminotransferase 156 U/L (ALT/SGPT) Alkaline Phosphatase 200 U/L Total Protein 7.6 GM/DL Albumin 2.1 GM/DL Imaging Last Impressions Chest X-Ray 12/02/16 0600 Signed Impressions: Service Date/Time: Friday, December 02, 2016 04:18 - CONCLUSION: 1. Cardiomegaly 2. Elevated left hemidiaphragm with subsegmental atelectasis left base. There has been no significant change when compared to the prior exam. Jose J Marte MD Head CT 11/26/16 0000 Signed Impressions: Service Date/Time: November 18:27 - CONCLUSION: 1. No acute intracranial abnormalities. Sinus disease as above. Dominic Bowen MD Lower Extremity Ultrasound 11/22/16 0000 Signed Impressions: Service Date/Time: Tuesday, November 22, 2016 19:29 - CONCLUSION: 1. Negative for deep venous thrombosis. Exam somewhat limited on the right side as above. Dominic Bowen MD Liver Ultrasound 11/20/16 0000 Signed Impressions: Service Date/Time: Sunday, November 20, 2016 15:47 - CONCLUSION: The liver is slightly echogenic which maybe due to fatty infiltration and or hepatocellular dysfunction. Kandi Ace MD Last Impressions Chest X-Ray 11/29/16 0600 Signed Impressions: Service Date/Time: Tuesday, November 29, 2016 03:23 - CONCLUSION: Modestly improved left base consolidation. Right lung remains clear. Remi Beebe MD Head CT 11/26/16 0000 Signed Impressions: Service Date/Time: November 18:27 - CONCLUSION: 1. No acute intracranial abnormalities. Sinus disease as above. Dominic Bowen MD Lower Extremity Ultrasound 11/22/16 0000 Signed Impressions: Service Date/Time: Tuesday, November 22, 2016 19:29 - CONCLUSION: 1. Negative for deep venous thrombosis. Exam somewhat limited on the right side as above. Dominic Bowen MD Liver Ultrasound 11/20/16 0000 Signed Impressions: Service Date/Time: Sunday, November 20, 2016 15:47 - CONCLUSION: The liver is slightly echogenic which maybe due to fatty infiltration and or hepatocellular dysfunction. Kandi Ace MD Objective Remarks General: NAD, AAOx3 Chest: CTA Cardiac: Regular Abd: +BS, soft ND/NT Ext: No edema A/P Problem List: (1) STEMI (ST elevation myocardial infarction) Status: Acute Plan: - Pt s/p Cardiac catheterization (11/19/16) with Dr. Adebayo Alvarez LAD 100% proximally status post BMS, ramus intermedius 90%. Mid circumflex 90%. OM1 90%. RCA 90% proximally stenosed - Pt will need staged PCI once more stable - Pt had cardiac arrest during cath - Following cardiac arrest pt required IABP, pressor agents, and mechanical ventilation. All of these critical care measures have been stopped. - Pt was extubated 11/29/16 - ASA, Plavix - Statin stopped for now d/t elevated transaminases, likely d/t shock liver. We will hold the Statin at discharge and the pt will followup with Cardiology is 2 weeks and decide about when to resume the statin at that point. - Lovenox for DVT prophylaxis - Pt stable for discharge to SNF today. This has been cleared by Cardiology and ID. (2) Cardiogenic shock Status: Acute Plan: - see above - resolved (3) Pneumonia due to Staphylococcus aureus Status: Acute Plan: - comgmt with ID, Dr. Andrade - Vancomycin (11/27 - 12/01) - Zosyn (11/27 - 12/01) - Ancef (started 12/01) - Duonebs - Pt currently on room air and saturating well. - Repeat CXR (12/02) --> Cardiomegaly, elevated left hemidiaphragm with subsegmental atelectasis left base with no significant change when compared to prior exam. - Spoke with Dr. Andrade and pt will be discharged on Keflex 500mg po Q8H x 7 days. (4) Elevated LFTs Status: Acute Plan: - trending downward (5) Decubitus ulcer of left buttock Status: Acute Plan: - wound care is following (6) Decubitus ulcer of left heel Status: Acute Plan: - wound care is following (7) Generalized weakness Status: Acute Plan: - PT - Pt being discharged to SNF today Assessment and Plan Patient examined. Assessment and plan formulated with Anel Lynch PA-C. I agree with the above. Problem Qualifiers (1) STEMI (ST elevation myocardial infarction): Qualified Code: I21.02 - ST elevation myocardial infarction involving left anterior descending (LAD) coronary artery (2) Decubitus ulcer of left buttock: Qualified Code: L89.329 - Decubitus ulcer of left buttock, unspecified ulcer stage (3) Decubitus ulcer of left heel: Qualified Code: L89.629 - Decubitus ulcer of left heel, unspecified ulcer stage Anel Lynch Dec 03, 2016 10:04 Kwan Woodruff DO Dec 06, 2016 06:55
[2016-12-03 10:52] LABS: BICARBONATE 28.2 MEQ/L (21.0-32.0); POTASSIUM 3.9 MEQ/L (3.5-5.1)
--- NOTE | 2016-12-03 11:04 | ECHLIM ---
Study Study Date:12/02/2016 STUDY CONCLUSIONS SUMMARY - Left ventricle: The cavity size was normal. Wall thickness was normal. Systolic function was moderately to severely reduced by visual assessment. The estimated ejection fraction was 35%. Hypokinesis of the mid-distal anteroseptal, anterior, and anterolateral myocardium. - Tricuspid valve: Mild regurgitation. If LV function is below 40, please consider prescribing an ACEI or ARB or document rationale for non-use. PROCEDURE DATA STUDY STATUS: Elective. Procedure: Transthoracic echocardiography. Image quality was good. Scanning was performed from the parasternal, apical, and subcostal acoustic windows. Study completion: The patient tolerated the procedure well. Transthoracic echocardiography. M-mode, complete 2D, complete spectral Doppler, and color Doppler. Patient status: Inpatient. CARDIAC ANATOMY LEFT VENTRICLE: The cavity size was normal. Wall thickness was normal. Systolic function was moderately to severely reduced by visual assessment. The estimated ejection fraction was 35%. Regional wall motion abnormalities: Hypokinesis of the mid-distal anteroseptal, anterior, and anterolateral myocardium. AORTIC VALVE: Trileaflet; normal thickness leaflets. Doppler: Transvalvular velocity was within the normal range. There was no stenosis. No regurgitation. AORTA: Aortic root: The aortic root was normal in size. MITRAL VALVE: Structurally normal valve. Doppler: Transvalvular velocity was within the normal range. There was no evidence for stenosis. Trace to mild regurgitation. LEFT ATRIUM: The atrium was normal in size. RIGHT VENTRICLE: The cavity size was normal. Wall thickness was normal. PULMONIC VALVE: Doppler: Transvalvular velocity was within the normal range. There was no evidence for stenosis. No regurgitation. TRICUSPID VALVE: Structurally normal valve. Doppler: Transvalvular velocity was within the normal range. Mild regurgitation. PULMONARY ARTERY: The main pulmonary artery was normal-sized. Systolic pressure was within the normal range. RIGHT ATRIUM: The atrium was normal in size. PERICARDIUM: There was no pericardial effusion. SYSTEMIC VEINS: Inferior vena cava: The vessel was normal in size. Prepared and signed by Adebayo Alvarez [id number]
[2016-12-03] MEDS ORDERED: FERR325T PO (11:43)
[2016-12-03] MEDS ORDERED: PLAV75TA29 PO (11:43)
[2016-12-03] MEDS ORDERED: FURO40TA PO (11:43)
[2016-12-03] MEDS ORDERED: LISI2.5T3 PO (11:43)
[2016-12-03] MEDS ORDERED: DOCU1CAP39 PO (11:43)
[2016-12-03] MEDS ORDERED: POTA20TA5 PO (11:43)
--- NOTE | 2016-12-03 11:48 | HHI.DCPOC ---
Discharge Care Plan Diagnosis: (1) STEMI (ST elevation myocardial infarction) (2) Pneumonia due to Staphylococcus aureus (3) Decubitus ulcer of left heel (4) Decubitus ulcer of left buttock (5) Generalized weakness (6) Dyslipidemia (7) Cardiogenic shock Goals to Promote Your Health * To prevent worsening of your condition and complications * To maintain your health at the optimal level Directions to Meet Your Goals Take your medications as prescribed Follow your dietary instruction Follow activity as directed Keep your appointments as scheduled Take your immunizations and boosters as scheduled If your symptoms worsen call your PCP, if no PCP go to Urgent Care Center or Emergency Room Smoking is Dangerous to Your Health. Avoid second hand smoke Call the 24-hour hour crisis hotline for domestic abuse at Anel Lynch Dec 03, 2016 11:48 Kwan Woodruff DO Dec 06, 2016 06:56
[2016-12-03] MEDS ORDERED: CEPH-460 PO (11:49)
[2016-12-03] MEDS ORDERED: HYDR-3516 PO (11:53)
--- NOTE | 2016-12-03 11:55 | HHI.IDPN ---
Note Infectious Disease Note Patient on room air. Feels tired but offers no complaints. Awake and alert. Afebrile. No chest pain. No nasal drainage. Admitted with myocardial infarction and he was taken for emergent cardiac catheterization and stent. Had cardiac arrest and required intubation and insertion of intraaortic balloon pump. PAST MEDICAL HISTORY: 1. Hyperlipidemia. 2. Asthma. ALLERGIES: NO KNOWN DRUG ALLERGIES. ANTIBIOTICS: Ancef. SOCIAL HISTORY: No tobacco, alcohol or illicit drugs. OBJECTIVE: Vital Signs Date Time Temp Pulse Resp B/P Pulse Ox O2 Delivery O2 Flow Rate FiO2 12/03/16 07:35 93 21 12/03/16 06:00 98 12/03/16 05:40 101 18 114/74 97 12/03/16 05:00 102 12/03/16 04:00 100 12/03/16 03:15 98.5 94 16 118/78 94 12/03/16 03:15 94 Room Air 12/03/16 03:00 97 12/03/16 02:00 98 12/03/16 01:00 99 12/03/16 00:00 95 12/03/16 00:00 95 Room Air 12/03/16 00:00 99.1 95 16 118/81 95 12/02/16 23:00 100 12/02/16 22:00 98 12/02/16 21:00 97 12/02/16 20:00 99.7 97 16 126/79 96 12/02/16 20:00 97 12/02/16 20:00 96 Room Air 12/02/16 19:45 96 Nasal Cannula 2.00 12/02/16 19:00 100 12/02/16 18:00 101 12/02/16 17:00 98 12/02/16 16:00 105 12/02/16 15:00 98.9 100 18 125/78 96 12/02/16 15:00 Nasal Cannula 2.00 12/02/16 15:00 92 12/02/16 14:00 94 12/02/16 12:00 91 12/02/16 12/02/16 12/03/16 15:00 23:00 07:00 Intake Total 810 ml 340 ml Output Total 550 ml 725 ml Balance 260 ml -385 ml Intake Oral 710 ml 240 ml IV Total 100 ml 100 ml Output Urine Total 550 ml 725 ml # Bowel Movements 1 0 Laboratory Tests Test 12/02/16 05:20 White Blood Count 10.8 TH/MM3 Red Blood Count 3.77 MIL/MM3 Hemoglobin 11.5 GM/DL Hematocrit 34.0 % Mean Corpuscular Volume 90.4 FL Mean Corpuscular Hemoglobin 30.6 PG Mean Corpuscular Hemoglobin 33.9 % Concent Red Cell Distribution Width 13.0 % Platelet Count 405 TH/MM3 Mean Platelet Volume 8.2 FL Neutrophils (%) (Auto) 70.6 % Lymphocytes (%) (Auto) 14.5 % Monocytes (%) (Auto) 6.4 % Eosinophils (%) (Auto) 7.5 % Basophils (%) (Auto) 1.0 % Neutrophils # (Auto) 7.6 TH/MM3 Lymphocytes # (Auto) 1.6 TH/MM3 Monocytes # (Auto) 0.7 TH/MM3 Eosinophils # (Auto) 0.8 TH/MM3 Basophils # (Auto) 0.1 TH/MM3 CBC Comment DIFF FINAL Differential Comment Laboratory Tests Test 12/02/16 12/03/16 12/03/16 05:20 04:53 09:58 Sodium Level 139 MEQ/L 136 MEQ/L Potassium Level 3.4 MEQ/L 3.9 MEQ/L Chloride Level 102 MEQ/L 101 MEQ/L Carbon Dioxide Level 28.1 MEQ/L 28.2 MEQ/L Anion Gap 9 MEQ/L 7 MEQ/L Blood Urea Nitrogen 28 MG/DL 25 MG/DL Creatinine 0.91 MG/DL 0.93 MG/DL 1.08 MG/DL Estimat Glomerular Filtration 101 ML/MIN 99 ML/MIN 83 ML/MIN Rate Random Glucose 108 MG/DL 163 MG/DL Calcium Level 8.9 MG/DL 8.9 MG/DL Magnesium Level 2.4 MG/DL Total Bilirubin 0.8 MG/DL Direct Bilirubin 0.4 MG/DL Indirect Bilirubin 0.4 MG/DL Aspartate Amino Transf 100 U/L (AST/SGOT) Alanine Aminotransferase 156 U/L (ALT/SGPT) Alkaline Phosphatase 200 U/L Total Protein 7.6 GM/DL Albumin 2.1 GM/DL IMAGING: Chest X-Ray 11/29/16 0600 Signed Impressions: Service Date/Time: Tuesday, November 29, 2016 03:23 - CONCLUSION: Modestly improved left base consolidation. Right lung remains clear. Remi Beebe MD Chest X-Ray 11/27/16599 Signed Impressions: Service Date/Time: Sunday, November 27, 2016 03:09 - CONCLUSION: Slight worsening left base consolidation. Remi Beebe MD Chest X-Ray 11/23/16599 Signed Impressions: Service Date/Time: Wednesday, November 23, 2016 03:04 - CONCLUSION: Left effusion and basilar airspace disease. Derrick Hagan MD Lower Extremity Ultrasound 11/22/16 Signed Impressions: Service Date/Time: Tuesday, November 22, 2016 19:29 - CONCLUSION: 1. Negative for deep venous thrombosis. Exam somewhat limited on the right side as above. Dominic Bowen MD Liver Ultrasound 11/20/16 Signed Impressions: Service Date/Time: Sunday, November 20, 2016 15:47 - CONCLUSION: The liver is slightly echogenic which maybe due to fatty infiltration and or hepatocellular dysfunction. Kandi Ace MD PHYSICAL EXAMINATION: GENERAL: On nasal O2. No distress. HEENT: No icterus. NECK: No swelling or adenopathy. LUNGS: Clearer breath sounds. HEART: Irregular rate and rhythm. ABDOMEN: Bowel sounds present, soft, Distended. EXTREMITIES: No clubbing or cyanosis or edema. SKIN: No rash. Warm and moist. NEUROLOGIC: Awake and alert. IMPRESSION: 1. Fever. Post intubation and post cardiac arrest. Temp improved. 2. Post myocardial infarction. 3. Acute respiratory failure. Improved. 4. Sinusitis. Staph aureus. 5. Pneumonia - Staph aureus. MSSA. 6. Elevated LFT. RECOMMENDATIONS: Change antibiotic to PO Keflex x 7 days. Kamar Freire MD Dec 03, 2016 11:55
[2016-12-03] MEDS ORDERED: PILL SPLITTER OTHER PRN (12:30)
[2016-12-04] MEDS ORDERED: LISINOPRIL 5 MG TAB PO SCH (09:00)
[2016-12-04] MEDS ORDERED: FERROUS SULFATE 325 MG (65 MG ELEMENTAL IRON) TAB PO SCH (09:00)
--- NOTE | 2017-01-17 11:08 | HHI.DS ---
Discharge Summary Admission Date Nov 19, 2016 at 17:33 Discharge Date: Jan 31, 2017 Admitting Diagnosis STEMI (1) STEMI (ST elevation myocardial infarction) Diagnosis: Principal (2) Cardiogenic shock Diagnosis: Principal (3) Pneumonia due to Staphylococcus aureus Diagnosis: Principal (4) Elevated LFTs Diagnosis: Principal (5) Decubitus ulcer of left buttock Diagnosis: Principal (6) Decubitus ulcer of left heel Diagnosis: Principal (7) Generalized weakness Diagnosis: Principal Consultants Dr. Kamar Andrade, Infectious Disease Dr. Delvin Hernandez, Critical Care Brief History 65-year-old gentleman has history of hyperlipidemia and asthma, he awoke, had some intermittent chest pain symptoms, began to become progressively worse over the course of the early afternoon. He came over to [facility], where an EKG showed new left bundle with ST-elevation anterolaterally. He was taken emergently to cardiac catheterization lab where his LAD was stented. At the end of the procedure patients suffered near cardiac arrest requiring intubation intra-aortic balloon pump placement and IV vasopressors. Critical care medicine was consulted to manage ventilatory dependent respiratory failure and assist with medical management. Imaging Last Impressions Chest X-Ray 12/02/16 0600 Signed Impressions: Service Date/Time: Friday, December 02, 2016 04:18 - CONCLUSION: 1. Cardiomegaly 2. Elevated left hemidiaphragm with subsegmental atelectasis left base. There has been no significant change when compared to the prior exam. Jose J Marte MD Head CT 11/26/16 0000 Signed Impressions: Service Date/Time: November 18:27 - CONCLUSION: 1. No acute intracranial abnormalities. Sinus disease as above. Dominic Bowen MD Lower Extremity Ultrasound 11/22/16 0000 Signed Impressions: Service Date/Time: Tuesday, November 22, 2016 19:29 - CONCLUSION: 1. Negative for deep venous thrombosis. Exam somewhat limited on the right side as above. Dominic Bowen MD Liver Ultrasound 11/20/16 0000 Signed Impressions: Service Date/Time: Sunday, November 20, 2016 15:47 - CONCLUSION: The liver is slightly echogenic which maybe due to fatty infiltration and or hepatocellular dysfunction. Kandi Ace MD PE at Discharge General: NAD, AAOx3 Chest: CTA Cardiac: Regular Abd: +BS, soft ND/NT Ext: No edema Hospital Course (1) STEMI (ST elevation myocardial infarction) Status: Acute Plan: - Pt s/p Cardiac catheterization (11/19/16) with Dr. Adebayo Alvarez LAD 100% proximally status post BMS, ramus intermedius 90%. Mid circumflex 90%. OM1 90%. RCA 90% proximally stenosed - Pt will need staged PCI once more stable - Pt had cardiac arrest during cath - Following cardiac arrest pt required IABP, pressor agents, and mechanical ventilation. All of these critical care measures have been stopped. - Pt was extubated 11/29/16 - ASA, Plavix - Statin stopped for now d/t elevated transaminases, likely d/t shock liver. We will hold the Statin at discharge and the pt will followup with Cardiology is 2 weeks and decide about when to resume the statin at that point. - Lovenox for DVT prophylaxis - Pt stable for discharge to SNF today. This has been cleared by Cardiology and ID. (2) Cardiogenic shock Status: Acute Plan: - see above - resolved (3) Pneumonia due to Staphylococcus aureus Status: Acute Plan: - comgmt with ID, Dr. Andrade - Vancomycin (11/27 - 12/01) - Zosyn (11/27 - 12/01) - Ancef (started 12/01) - Duonebs - Pt currently on room air and saturating well. - Repeat CXR (12/02) --> Cardiomegaly, elevated left hemidiaphragm with subsegmental atelectasis left base with no significant change when compared to prior exam. - Spoke with Dr. Andrade and pt will be discharged on Keflex 500mg po Q8H x 7 days. (4) Elevated LFTs Status: Acute Plan: - trending downward (5) Decubitus ulcer of left buttock Status: Acute Plan: - wound care is following (6) Decubitus ulcer of left heel Status: Acute Plan: - wound care is following (7) Generalized weakness Status: Acute Plan: - PT - Pt discharged to SNF - see discharge orders Pt Condition on Discharge: Stable Discharge Disposition: Discharge to SNF Discharge Instructions DIET: Follow Instructions for: Heart Healthy Diet Activities you can perform: Regular-No Restrictions Follow up Referrals: Cardiology - [address] Minor PCP Follow-up - [address] Charles New Medications: Cephalexin (Keflex) 500 Mg Cap 500 MG PO Q8H Infection #21 Ref 0 CAP Lisinopril (Lisinopril) 2.5 Mg Tab 2.5 MG PO DAILY #30 Ref 0 TAB Clopidogrel (Plavix) 75 Mg Tab 75 MG PO DAILY CAD #31 TAB Docusate Sodium (Dok) 100 Mg Cap 100 MG PO BID constipation prevention #62 CAP Ferrous Sulfate (Ferrous Sulfate) 325 Mg Tab 325 MG PO DAILY anemia #31 TAB Furosemide (Furosemide) 40 Mg Tab 40 MG PO DAILY cardiomyopathy #31 TAB Hydrocodone-Acetaminophen (Hydrocodone-Acetaminophen) 5-325 mg Tab 1 TAB PO Q6H PRN pain #20 Ref 0 TAB Potassium Chloride Microencaps (Potassium Chloride Microencaps) 20 Meq Tab 20 MEQ PO DAILY CAD #31 TAB Continued Medications: Albuterol Sulfate (Proventil Ud 0.083% (2.5 Mg/3 Ml)) 2.5 Mg/3 Ml Inha 2.5 MG NEB Q4HR NEB #1 BOX Albuterol Sulfate 8 GM Inhaler (Ventolin Hfa) 8 Gm Aero 1 PUFF INH Q4 * SHAKE WELL BEFORE USE * #1 BOX Fexofenadine Hcl (Vicenta Allergy) 60 Mg Tab 60 MG PO DAILY TAB Ipratropium [place] (Atrovent Ud 0.02% (0.5 Mg/2.5 Ml)) 0.5 Mg/2.5 Ml Nebu 0.5 MG NEB Q4HR NEB #1 BOX Loratadine (Claritin 10 Mg Tab) 10 Mg Tab 10 MG PO DAILY TAB Discontinued Medications: Azithromycin (Azithromycin) 250 Mg Tab 250 MG PO DAILY Days 4 TAB Lovastatin (Lovastatin) 10 Mg Tab 10 MG PO DAILY TAB Prednisone (Deltasone 20 Mg Tab) 20 Mg Tab 60 MG PO DAILY Days 4 TAB Kwan Woodruff DO Jan 17, 2017 11:08
== END 2016-12-03 18:40 | DRG 270 ==
LOC: NEPE 17:26 → NEDA 17:33 → HCVR 20:55 → HCPC 12-01 13:44
PROVIDERS: ADMIT Internal Medicine; ATTEND Internal Medicine
PROC: 5A02210 Assistance with Cardiac Output using Balloon Pump, Continuous (ICD-10-PCS; principal; 2016-11-19)
PROC: 02703FZ Dilation of Coronary Artery, One Artery with Three Intraluminal Devices, Percutaneous Approach (ICD-10-PCS; 2016-11-19)
PROC: 02C03ZZ Extirpation of Matter from Coronary Artery, One Artery, Percutaneous Approach (ICD-10-PCS; 2016-11-19)
PROC: 5A12012 Performance of Cardiac Output, Single, Manual (ICD-10-PCS; 2016-11-19)
PROC: 4A023N7 Measurement of Cardiac Sampling and Pressure, Left Heart, Percutaneous Approach (ICD-10-PCS; 2016-11-19)
PROC: B2111ZZ Fluoroscopy of Multiple Coronary Arteries using Low Osmolar Contrast (ICD-10-PCS; 2016-11-19)
PROC: 5A1213Z Performance of Cardiac Pacing, Intermittent (ICD-10-PCS; 2016-11-19)
PROC: 5A1955Z Respiratory Ventilation, Greater than 96 Consecutive Hours (ICD-10-PCS; 2016-11-19)
PROC: 0BH17EZ Insertion of Endotracheal Airway into Trachea, Via Natural or Artificial Opening (ICD-10-PCS; 2016-11-19)
DX: I21.02 ST elevation (STEMI) myocardial infarction involving left anterior descending coronary artery (principal); J96.00 Acute respiratory failure, unspecified whether with hypoxia or hypercapnia; R57.0 Cardiogenic shock; K72.00 Acute and subacute hepatic failure without coma; I50.21 Acute systolic (congestive) heart failure; L89.322 Pressure ulcer of left buttock, stage 2; G93.40 Encephalopathy, unspecified; J15.211 Pneumonia due to Methicillin susceptible Staphylococcus aureus; Z99.11 Dependence on respirator [ventilator] status; E66.2 Morbid (severe) obesity with alveolar hypoventilation; J98.11 Atelectasis; I25.10 Atherosclerotic heart disease of native coronary artery without angina pectoris; E78.5 Hyperlipidemia, unspecified; J45.909 Unspecified asthma, uncomplicated; I44.7 Left bundle-branch block, unspecified; L89.622 Pressure ulcer of left heel, stage 2; E78.00 Pure hypercholesterolemia, unspecified; E83.39 Other disorders of phosphorus metabolism; J32.0 Chronic maxillary sinusitis; J32.2 Chronic ethmoidal sinusitis; J32.3 Chronic sphenoidal sinusitis; D64.9 Anemia, unspecified; E87.6 Hypokalemia; R74.0 Nonspecific elevation of levels of transaminase and lactic acid dehydrogenase [LDH]; R04.0 Epistaxis; Z68.33 Body mass index [BMI] 33.0-33.9, adult; Z87.891 Personal history of nicotine dependence
CPT/HCPCS: 31500; 33210; 33967; 70450; 71010; 76705; 76937; 80048; 80053; 80061; 80074; 80076; 80202; 81001; 82140; 82310; 82390; 82435; 82550; 82552; 82565; 82784; 82785; 82805; 82947; 82948; 83520; 83605; 83735; 83880; 84100; 84132; 84155; 84295; 84484; 84520; 85014; 85025; 85027; 85260; 85610; 85730; 86038; 86256; 86403; 87040; 87070; 87081; 87086; 87147; 87186; 87205; 92941; 93005; 93306; 93308; 93454; 93970; 94002; 94003; 94150; 94640; 94664; 94667; 94668; 99285; C1725; C1751; C1757; C1769; C1876; C1887; C1893; C9113; C9399; C9460; J0131; J0171; J0456; J0583; J0610; J0690; J1644; J1650; J1940; J1956; J2250; J2270; J2370; J2543; J2930; J3010; J3370; J3480; J7030; J7040; J7050; J7060; P9045; Q9967

== ENCOUNTER 2017-02-18 06:17 | Inpatient (IN) | payer OTHER ==
[~2017-02-18] VITALS: Ht 175.3 cm; Wt 101.4 kg
[2017-02-18] VITALS (8 sets, daily range): BP systolic 95–115; BP diastolic 69–75; PULSE 79–97; RESP 16–20; TEMP 97.1–98.4; O2SAT 94–99
[~2017-02-18 06:17] MED LIST changes: +AMINOCAPROIC ACID INJ 250 MG/ML 20 ML VIAL IV ONE; -AZIT250T43 PO; +CALCIUM CHLORIDE 10% SOLN 1 GRAM/10 ML SYR IV ONE; +CEPH-460 PO; +DEXMEDETOMIDINE INJ 50 ML IV ONE; +DOCU1CAP39 PO; +EPINEPHrine HCL (1:1000) 1 MG/ML VIAL IV ONE; +FERR325T PO; +FURO40TA PO; +HEPARIN SODIUM - SQ 10,000 UNITS/ML VIAL SQ ONE; +HYDR-3516 PO; +LISI2.5T3 PO; -LOVA10TA PO; +MAGNESIUM SULFATE 1000 MG/2 ML VIAL (PED) IV ONE; +NITROGLYCERIN-DEXTROSE INJ 250 ML IV ONE; +PLAV75TA29 PO; +POTA20TA5 PO; -PRED20 PO; +PROTAMINE SULFATE 250 MG/25 ML VIAL IV ONE; +VECURONIUM BROMIDE 10 MG VIAL IV ONE; +ceFAZolin INJ 1,000 MG VIAL IV ONE
[2017-02-18] MEDS: NS 1000P @30 MLS/HR (KVO) IV SCH (07:00)
[2017-02-18] MEDS ORDERED: VENTAER INH (07:39)
[2017-02-18] MEDS ORDERED: ENOX100I SQ (07:39)
[2017-02-18] MEDS ORDERED: ATOR20TA15 PO (07:39)
[2017-02-18] MEDS ORDERED: FLUTI110I INH (07:39)
[2017-02-18] MEDS ORDERED: WARF-23 PO (07:39)
[2017-02-18] MEDS ORDERED: diphenhydrAMINE HCL 50 MG/ML VIAL IV ONE (07:45)
[2017-02-18] MEDS ORDERED: methylPREDNISolone SOD SUCC 125 MG/2 ML VIAL IV ONE (07:45)
[2017-02-18] MEDS ORDERED: MIDAZOLAM HCL 2 MG/2 ML VIAL ONE (08:23)
[2017-02-18] MEDS ORDERED: HEPARIN-NS/PF INJ 500 ML ONE (08:24)
[2017-02-18] MEDS ORDERED: NITROGLYCERIN 0.4 MG SL 25 TABS/BTL SL ONE (09:03)
[2017-02-18] MEDS ORDERED: NITROGLYCERIN-DEXTROSE INJ 250 ML ONE (09:05)
[2017-02-18] MEDS ORDERED: FUROSEMIDE 40 MG/4 ML VIAL ONE (09:06)
[2017-02-18] MEDS ORDERED: METOCLOPRAMIDE HCL 10 MG/2 ML VIAL IV PRN (09:30)
[2017-02-18] MEDS ORDERED: oxyCODONE/ACETAMINOPHEN 5 MG/325 MG TAB PO PRN ×2 (09:30)
[2017-02-18] MEDS ORDERED: BACITRACIN OINT 0.9 GM PKT TOP ONE (09:30)
[2017-02-18] MEDS ORDERED: ONDANSETRON HCL 4 MG/2 ML VIAL IV PRN (09:30)
[2017-02-18] MEDS ORDERED: LIDOCAINE HCL 1% 50 ML VIAL INFIL PRN (09:30)
[2017-02-18] MEDS ORDERED: ATROPINE SULFATE 1 MG/ML VIAL IV PRN (09:30)
[2017-02-18] MEDS ORDERED: LORazepam 2 MG/ML VIAL IV PRN (09:30)
[2017-02-18] MEDS ORDERED: SODIUM CHLOR 0.9% 250 ML INJ 250 ML IV PRN (09:30)
[2017-02-18] MEDS ORDERED: NITROGLYCERIN-DEXTROSE INJ 250 ML IV SCH (09:45)
[2017-02-18] MEDS ORDERED: NALOXONE HCL 0.4 MG/ML AMP IV PRN (09:45)
--- NOTE | 2017-02-18 09:58 | MA ---
cc: TAYO ANDERSON DATE 02/18/2017 PROCEDURE PERFORMED 1. Fluoroscopy with interpretation. 2. Coronary angiography METHOD The risks, benefits and alternatives discussed with the patient. The patient understood and consented. PROCEDURE The patient brought into the catheterization lab, placed on the catheterization table. The right groin prepped and draped in a sterile fashion. The right groin was anesthetized with 2% lidocaine. The right common femoral was cannulated and a 6-Wolof 11 cm sheath was placed without difficulty. CORONARY ANGIOGRAPHY 1. Left main coronary is angiographically normal. 2. The left anterior descending coronary has stents present in the proximal and extending into the early mid segment. The LAD is 100% occluded. You can see the distal LAD filling retrograde via collaterals. There is also filling of a diagonal branch. 3. The left circumflex has a moderate size ramus intermedius branch with an ostial 95% stenosis. The circumflex itself has a 50% stenosis in the obtuse marginal branch. This is a very large caliber size with a 90% stenosis. 4. The right coronary is tortuous, smaller caliber size, but is right dominant. There is ostial 90% stenosis followed by several tandem 90% stenosis in the mid segment. Actually, it engages in the right coronary and the patient became ischemic and developed ventricular fibrillation requiring single defibrillation. He was then started on a nitroglycerin drip at 10 mics per minute. CONCLUSION 1. Severe multivessel coronary disease. 2. Known cardiomyopathy with apical left ventricular thrombus by 2-D echocardiogram. PLAN The patient is in a difficult situation. His anatomy particular on the right would be incredibly difficult for a percutaneous approach given that he has developed acute ischemia in just a short period of time with diagnostic angiography. The ostial ramus branch would also be difficult to intervene on for concerns of the extension into the left main. I think at this point, the best approach would be consideration for a surgical consultation. Potentially they can still graft the left anterior descending and possibly the diagonal branch and maybe there is some component of hibernation. We will continue with nitro drip, admit him to CVICU and initiate heparin drip later today. MD NATHANIEL Dejesus/JASPREET /9:39 AM /9:51 AM
--- NOTE | 2017-02-18 09:59 | CATHPROC ---
[facility] HIS Report Study Information Study Number Admission Scheduled Start Study Start 0850-17 02/18/2017 02/18/2017 Feb 18 2017 8:14AM Study Type [place] Service Left Heart Cath Cardiac Catheterization Referring Institution Admit Source Facility Department 1 Other [facility] Bilingual Trainer Physician and Clinical Staff Initial Adebayo Chaudhry Mold Stackertiffany Bird RN, Jeremías Ortez,RT(R) TECH2 Scrub Mariel Hernández,RT(R) Procedures Performed Procedure Location (Site) Vessel Name Coronary Angiograms LCA Left Coronary L Heart Cath Equipment Time Singer And Unloader Description Size Mfg Part Number Used/Scraped COPILOT VALVE, BLEEDBACK 08:56 [employer] [id number] Used CONTROL TRANSDUCER, TRUWAVE 08:34 RAMAN CHIANG * [id number] Used W/STOCKCOCK 08:34 MEDLINE INDUSTRIES PACK, CCL CUSTOM * [id number] Used 08:34 Spinback INDUSTRIES SUPPORT, ARTERIAL ADULT [id number] Used 08:34 Spinback PACER PEN, SKIN DUAL W/ RULER * [id number] Used 08:48 [employer]Knows MEDICAL WIRE, EXCHANGE 260CM 3MMJ 260CM [id number] Used 08:34 NYCOMED OMNIPAQUE, 350 MG, 100ML 100ML [id number] Used 08:34 Hailo MEDICAL BLANKET,WARM AIR CCL * [id number] Used 08:35 TERUMO MEDICAL SHEATH, FR6 TERUMO (10CM) FR 6 [id number] Used WIRE, RUNTHROUGH NS FLOPPY 08:56 TERUMO MEDICAL 300CM [id number] Used .014 300CM History: Current Medications Medication Dosage/Unit Route Frequency Last Date/Time Taken ACCUPRIL Statins (any) Beta Floyd PLAVIX LASIX Coumadin LOVENOX History: Allergies Allergy Reaction DIFFICULT AIRWAY Cardiac Arrest Contrast Media History: Risk Factors Family History of Hypertension Dyslipidemia Previous RI Previous Heart Failure Premature CAD Yes Yes No Yes Yes Prior Valve Prior PCI Prior PCIDate Prior CABG Surgery No Yes 11/19/2016 No Cerebrovascular Peripheral Artery Chronic Lung On Dialysis Diabetes Disease Disease Disease No No No No No History: Symptoms/Diagnosis Selection Items Chest pain History: CV Disease Selection Items Cardiomyopathy ischemic Known CAD History: Stress Tests Stress or Imaging Studies Performed No History: Other Disease Selection Items CAD HTN History: Other Current Smoker Method Quit Packs a Day Years Used Pack Years No Cigarettes 8 Years Ago 1 31 31 Labs Hgb (g/dl) Hct (%) WBC (l/cumm) Platelets (thousands) 12.00-18.00 37.00-55.00 4.80-10.80 140.00-450.00 12.3 39.2 5 329 BUN (mg/dl) Creatinine (mg/dl) BUN:Creatinine (1:x) 8.00-20.00 0.10-9.00 10.00-20.00 14 1.0 14 Na (meq/l) K (meq/l) 138.00-146.00 3.80-5.10 143 4 INR (PTT:PT) 0.50-2.00 1.4 CPK-MB (ng/ML) 0.00-7.00 Not Drawn Medication Medication Total Dose (Bolus/Oral) Medication Total Dosage/Unit 1% XYLOCAINE 20 mL FENTANYL 50 mcg LASIX 40 mg NITROGLYCERIN S/L 0.4 mg VERSED 1 mg Medications (Bolus/Oral) Medication Time Given Dosage/Unit Administered By Reason VERSED 02/18/2017 8:44:27 AM 1 mg Roman Bird RN 1 mg VERSED given in lab by Roman Bird RN via Peripheral IV. Ordered by Adebayo Alvarez. FENTANYL 02/18/2017 8:45:00 AM 25 mcg Roman Bird RN 25 mcg FENTANYL given in lab by Roman Bird RN via Peripheral IV. Ordered by Adebayo Alvarez. 1% XYLOCAINE 02/18/2017 8:45:01 AM 20 mL Adebayo Alavrez 20 mL 1% XYLOCAINE given in lab by Adebayo Alvarez in Right Groin via Subcutaneous. FENTANYL 02/18/2017 8:49:00 AM 25 mcg Roman Bird RN 25 mcg FENTANYL given in lab by Roman Bird RN via Peripheral IV. Ordered by Adebayo Alvarez. NITROGLYCERIN S/L 02/18/2017 9:04:28 AM 0.4 mg Roman Bird RN 0.4 mg NITROGLYCERIN S/L given in lab by Roman Bird RN via Sublingual. Ordered by Adebayo Alvarez. LASIX 02/18/2017 9:07:16 AM 40 mg Roman Bird RN 40 mg LASIX given in lab by Roman Bird RN via Peripheral IV. Ordered by Adebayo Alvarez. Medication (Drip) Medication Time Given Dosage/Unit Concentration/Unit Diluent (ml) Solution IV Solutions 02/18/2017 8:16:14 AM 0 mL (IV) 500 NaCl .9 Patient arrived on IV Solutions in Left Forearm via Peripheral IV. Pump/Drip Flow = 20 ml/hr using Na Cl .9. NITROGLYCERIN DRIP 02/18/2017 9:09:00 AM 10 mcg/min 50 mg 250 D5W 10 mcg/min NITROGLYCERIN DRIP given in lab by Roman Bird RN via Peripheral IV. Pump/Drip Flow = 3 m l/hr using D5W with a concentration of 50 mg in 250 ml. Ordered by Adebayo Alvarez. Initial Case Assessment Cardiovascular HR Rhythm NIBP Chest Pain 93 SR 106/71 0 Edema Present Skin color Skin None Normal Warm Dry Circulatory - Right Pulses Dorsalis Pedis Femoral Radial 2 2 2 Scale (0,1,2,3,4,d) Circulatory - Left Pulses Dorsalis Pedis Femoral Radial 2 2 Scale (0,1,2,3,4,d) Circulatory - Lower Extremities Color Lower Right Color Lower Left Normal Normal Neurological State Oriented to time-place- Alert Moves all extremities person Respiration - General SpO2 (%) 97 Final Case Assessment Cardiovascular HR Rhythm NIBP Chest Pain 107 S TACH 124/79 0 Edema Present Skin color Skin None Normal Warm Dry Circulatory - Right Pulses Dorsalis Pedis Femoral 2 2 Scale (0,1,2,3,4,d) Circulatory - Left Pulses Dorsalis Pedis Femoral 2 2 Scale (0,1,2,3,4,d) Circulatory - Lower Extremities Color Lower Right Color Lower Left Normal Normal Neurological State Oriented to time-place- Alert Moves all extremities person Respiration - General SpO2 (%) 99 Chronological Log Time Study Chronological Log 8:14:12 Patient arrived via Bed. 8:14:13 Patient Name, D.O.B, / Armband Verified By R.N. 8:14:14 Consent signed by the physician and the patient and verified by the Bilingual Trainer staff. 8:14:25 Allens test performed on the right radial and ulnar artery. 8:15:03 Patient has been NPO for Less than 6Hrs. 8:15:04 Skin Breakdown- DECUBITIS ULCER LT HEEL 8:16:08 Patient Warmer Placed on the Table. 8:16:12 Myrna Prominences Protected 8:16:13 A # 20 IV was noted in the Forearm (left). Grade = 0 8:16:14 Patient arrived on IV Solutions in Left Forearm via Peripheral IV. Pump/Drip Flow = 20 ml/h r using NaCl .9. 8:16:15 History and physical on the chart or being dictated. Assessment: Initial Case, HR=93 BPM, Rhythm=SR, EIRK=876/71 mmhg, Chest Pain=0, Edema=None, [place] r=Normal, Skin = Warm, Dry Right Pulses: Augustin Ped=2, Femoral=2, Radial=2 Left Pulses: Augustin Ped=2, Femoral=2 8:16:16 Lower Right Extremities: Color=Normal Lower Left Extremities: Color=Normal Neurological: State=Alert, Ox3, VACA Respiration: SpO2=97 % 8:16:17 Table restraints applied according to hospital policy 8:16:19 Right groin prepped with 2% chlorhexidine, and with a 3 min. waiting time. 8:16:25 Right radial, right brachial, and groin(s) prepped with 2% chlorhexidine, and with a 3 min. waiting time. 8:24:29 Reference ECG taken Vitals capture started with the following parameters, Patient=Adult, Interval=5 min, Initial Pre uyvsl=768 mmHg, 8:27:31 Deflation Rate=5 mmHg 8:28:57 HR=94 bpm, JQGC=744/76 mmhg, SpO2=67.0 %, Resp=16 B/min, Pain=0, Pastor=10, Hunt=2 8:33:06 HR=94 bpm, IYKQ=172/71 mmhg, SpO2=98.0 %, Resp=15 B/min, Pain=0, Pastor=10, Hunt=2 8:38:03 HR=92 bpm, SFBV=594/70 mmhg, Resp=14 B/min, Pain=0, Pastor=10, Hunt=2 8:41:32 Pressure channel 2 zeroed. 8:43:07 HR=96 bpm, MNLQ=363/65 mmhg, Resp=16 B/min, Pain=0, Pastor=10, Hunt=2 Time Out. Correct patient, correct procedure,correct physician, ,power injector loaded or not lo aded with contrast with 8:43:45 surgical team present. Time Out Concurred by MD, individual staff and DETAIL MANAGER in procedure 8:44:27 1 mg VERSED given in lab by Roman Bird RN via Peripheral IV. Ordered by Adebayo Alvarez. 8:44:59 Case Start 8:45:00 25 mcg FENTANYL given in lab by Roman Bird RN via Peripheral IV. Ordered by Adebayo Alvarez . 8:45:01 20 mL 1% XYLOCAINE given in lab by Adebayo Alvarez in Right Groin via Subcutaneous. 8:45:40 Access site was Right Femoral Artery. 8:47:08 A SHEATH, FR6 TERUMO (10CM) FR 6 was advanced into the Fem Art (right) using the Modified Se barboza technique. 8:48:06 HR=93 bpm, TQVL=529/72 mmhg, SpO2=96.0 %, Resp=16 B/min, Pain=0, Pastor=10, Hunt=2 A JL 4.0 INFINITI CATHETER FR 6 was advanced over a wire. OMNIPAQUE, 350 MG, 100ML 100ML was use d for 8:48:20 injections. 8:48:26 The LCA was injected and visualized at various angles. OMNIPAQUE, 350 MG, 100ML 100ML used. 8:48:45 The LCA was injected and visualized at various angles. contrast used. 8:49:00 25 mcg FENTANYL given in lab by Roman Bird RN via Peripheral IV. Ordered by Adebayo Alvarez . 8:53:03 HR=93 bpm, FTLU=503/77 mmhg, SpO2=95.0 %, Resp=14 B/min, Pain=0, Pastor=10, Hunt=2 After removing the current catheter a XBRCA .070 GUIDE CATHETER FR 6 was advanced over a WIRE, E XCHANGE 8:53:33 260CM 3MMJ 260CM. ~CONTRAST~ was used for injections. 8:57:38 Pressure channel 2 zeroed. Recorded Pressure: Ao, HR=97, Condition=Condition 1 8:57:51 (Aorta) Ao 105/71/86 8:58:06 HR=91 bpm, ZGNW=767/69 mmhg, SpO2=95.0 %, Resp=16 B/min, Pain=0, Pastor=10, Hunt=2 Recorded Pressure: Ao, SK=844, Condition=Condition 1 8:59:19 (Aorta) Ao 121/82/99 8:59:58 Patient defibrillated at 200 joules. The ECG rhythm was noted as V-Fib. 9:03:30 Catheter was removed 9:03:42 VA=117 bpm, HUZT=412/89 mmhg, SpO2=99.0 %, Resp=25 B/min, Pain=0, Pastor=10, Hunt=2 9:04:00 Patient complaining of chest pain Recorded Pressure: Ao, ZZ=357, Condition=Condition 1 9:04:14 (Aorta) Ao 156/85/109 9:04:28 0.4 mg NITROGLYCERIN S/L given in lab by Roman Bird RN via Sublingual. Ordered by Adebayo Alvarez. Recorded Pressure: Ao, KY=816, Condition=Condition 1 9:06:43 (Aorta) Ao 157/89/112 9:07:16 40 mg LASIX given in lab by Roman Bird RN via Peripheral IV. Ordered by Adebayo Alvarez. 9:08:10 AI=067 bpm, COSF=124/83 mmhg, SpO2=99.0 %, Resp=22 B/min, Pain=0, Pastor=10, Hunt=2 10 mcg/min NITROGLYCERIN DRIP given in lab by Roman Bird RN via Peripheral IV. Pump/Drip Flow = 3 ml/hr using 9:09:00 D5W with a concentration of 50 mg in 250 ml. Ordered by Adebayo Alvarez. 9:13:11 SI=991 bpm, JFTJ=646/79 mmhg, SpO2=98.0 %, Resp=22 B/min, Pain=0, Pastor=10, Hunt=2 9:15:15 Case End Assessment: Final Case, YK=417 BPM, Rhythm=S TACH, VMMB=571/79 mmhg, Chest Pain=0, Edema=None, Color=Normal, Skin = Warm, Dry Right Pulses: Augustin Ped=2, Femoral=2 Left Pulses: Augustin Ped=2, Femoral=2 9:15:35 Lower Right Extremities: Color=Normal Lower Left Extremities: Color=Normal Neurological: State=Alert, Ox3, VACA Respiration: SpO2=99 % 9:16:33 Catheter(s) removed without difficulty 9:16:52 Sheath removed; pressure applied to access site. 9:16:56 Sterile dressing applied to site 9:16:57 No case complications noted. 9:17:00 Cine recording checked. 9:17:02 Bedside Report will be given. 9:17:07 Contrast Scanned 9:17:10 A Left Heart Cath was performed. 9:18:02 EC=601 bpm, XVKA=491/67 mmhg, SpO2=98.0 %, Resp=20 B/min, Pain=0, Pastor=10, Hunt=2 9:23:07 GC=514 bpm, RQYR=521/66 mmhg, SpO2=96.0 %, Resp=22 B/min 9:28:08 WI=253 bpm, MOUM=316/64 mmhg, SpO2=96.0 %, Resp=19 B/min, Pain=0, Pastor=10, Hunt=2 9:33:03 NJ=085 bpm, OGIA=092/91 mmhg, SpO2=94 %, Resp=37 B/min 9:38:12 JF=258 bpm, DMVD=026/65 mmhg, SpO2=96 %, Resp=21 B/min 9:43:07 YF=999 bpm, RVSB=568/70 mmhg, Resp=18 B/min 9:48:12 IY=137 bpm, TPFH=761/57 mmhg, SpO2=99 %, Resp=23 B/min 10:00:[address] [facility] End Study - Contrast Media Used In Study Contrast Total Opened (mL) Total Used (mL) Total Wasted (mL) Omnipaque 150 30 120 End Study - Maximum Contrast Load Max Contrast Load (mL) 519.5 End Study - Radiation Exposure Fluoro Time (minutes) 3.0 End Study - Sheaths Sheaths Pulled By Sheath Hold Time (min) Mariel Hernández End Study - Patient Disposition Complications Transferred To Interventional Outcome Not selected Critical Care Bed No attempt made
[2017-02-18] MEDS: HEPARIN-D5W INJ 250 ML IV SCH (10:39)
[2017-02-18] MEDS ORDERED: IOHEXOL 350 MG/ML 50 ML BTL (for Cath Lab) OTHER ONE (11:39)
[2017-02-18] MEDS: ATORVASTATIN 20 MG TAB PO SCH ×2 (11:52→20:23)
[2017-02-18] MEDS: ASPIRIN EC 81 MG TABEC PO SCH (11:52)
[2017-02-18 13:12] LABS: HEMATOCRIT 36.7 % (39.0-51.0); MEAN CORPUSCULAR HEMOGLOBIN 29.9 PG (27.0-34.0); MEAN CORPUSCULAR HGB CONC 33.6 % (32.0-36.0); PLATELET COUNT 279 TH/MM3 (150-450); RED BLOOD COUNT 4.12 MIL/MM3 (4.50-5.90); REVIEW FLAG FINAL; WHITE BLOOD COUNT 4.8 TH/MM3 (4.0-11.0)
[2017-02-18 13:22] LABS: APTT (PATIENT) 24.3 SEC (24.3-30.1); PROTHROMBIN TIME - PATIENT 11.3 SEC (9.8-11.6)
[2017-02-18] MEDS ORDERED: INSULIN REGULAR (IV INFUSION) 100 UNITS in SODIUM CHLORIDE 0.9% INJ 100 ML IV SCH (14:30)
[2017-02-18] MEDS ORDERED: METOPROLOL TARTRATE 25 MG TAB PO SCH (14:30)
[2017-02-18] MEDS ORDERED: SODIUM CHLORIDE 0.9% FLUSH 10 ML FLUSH IV FLUSH PRN (14:30)
[2017-02-18] MEDS ORDERED: CHLORHEXIDINE GLUCONATE 4% SOLN 120 ML BTL TOPICAL SCH (14:30)
[2017-02-18] MEDS ORDERED: PAPAVERINE INJ 60 MG, NITROGLYCERIN INJ 100 MCG, DILTIAZEM INJ 100 MG in SODIUM CHLORID... IRRIGATION SCH (14:30)
[2017-02-18] MEDS ORDERED: CEFAZOLIN INJ 500 MG in SODIUM CHLORIDE 0.9% IRR BTL 500 ML IRRIGATION SCH (14:30)
[2017-02-18] MEDS ORDERED: ceFAZolin 2 GM PREMIX 50 ML IV SCH (14:30)
--- NOTE | 2017-02-18 15:16 | PD.CAR.PN ---
CVT Progress Note Subjective/Hospital Course: Model and Variables - STS Adult Cardiac Surgery Database Version 2.81 RISK SCORES About the STS Risk Calculator Procedure: CAB Only Risk of Mortality: 1.457% Morbidity or Mortality: 20.27% Long Length of Stay: 9.188% Short Length of Stay: 30.089% Permanent Stroke: 1.196% Prolonged Ventilation: 16.225% DSW Infection: 0.873% Renal Failure: 4.321% Reoperation: 6.784% Objective: Vital Signs Date Time Temp Pulse Resp B/P Pulse Ox O2 Delivery O2 Flow Rate FiO2 02/18/17 12:49 98 Nasal Cannula 3.00 02/18/17 11:18 97 02/18/17 11:05 98.2 96 20 105/69 97 02/18/17 07:33 98.2 97 19 95/69 98 Labs: Laboratory Tests Test 02/18/17 02/18/17 06:55 12:43 Blood Type A POSITIVE Antibody Screen NEGATIVE Blood Bank Comment White Blood Count 4.8 TH/MM3 (4.0-11.0) Red Blood Count 4.12 MIL/MM3 (4.50-5.90) Hemoglobin 12.3 GM/DL (13.0-17.0) Hematocrit 36.7 % (39.0-51.0) Mean Corpuscular Volume 89.0 FL (80.0-100.0) Mean Corpuscular Hemoglobin 29.9 PG (27.0-34.0) Mean Corpuscular Hemoglobin 33.6 % Concent (32.0-36.0) Red Cell Distribution Width 15.0 % (11.6-17.2) Platelet Count 279 TH/MM3 (150-450) Mean Platelet Volume 8.6 FL (7.0-11.0) Prothrombin Time 11.3 SEC (9.8-11.6) Prothromb Time International 1.0 RATIO Ratio Activated Partial 24.3 SEC Thromboplast Time (24.3-30.1) Result Diagram: 02/18/17 1243 Kb Nunes MD February 18, 2017 15:16
[2017-02-18 16:38] LABS: APTT (PATIENT) 22.9 SEC (24.3-30.1)
[2017-02-18 17:25] LABS: BLOOD, URINE NEG (NEG); COMMENT (UR) CULT NOT INDICATED; CULTURE IF INDICATED CULT NOT INDICATED; GLUCOSE,URINE NEG (NEG); KETONE, URINE NEG (NEG); NITRITE,URINE NEG (NEG); PH, URINE 5.5 (5.0-8.5); SQUAMOUS EPITHELIAL CELL URINE <1 /hpf (0-5); URINE COLOR YELLOW (YELLW/STRAW)
--- NOTE | 2017-02-18 18:12 | RADRPT ---
EXAM DATE/TIME: 02/18/2017 16:59 [facility] COMPARISON: US LEG BILATERAL VENOUS DOPPLER, November 22, 2016, 19:29. INDICATIONS : Preop cardiac surgery. MEDICAL HISTORY : Asthma. Hyperlipid. SURGICAL HISTORY : None. ENCOUNTER: Initial ACUITY: 1 day PAIN SCORE: 0/10 LOCATION: Bilateral leg. TECHNIQUE: Venous ultrasound of the left and right leg was performed from the inguinal ligament to the proximal calf. Real-time, color Doppler and spectral tracing, compression and augmentation techniques were us ed. FINDINGS: RIGHT LEG: There is normal compressibility of the deep venous system from the inguinal region to the proximal ca lf. No echogenic clot is seen in the lumen of the common femoral, femoral, popliteal, and posterior tibial veins. There is a normal response of the venous system to proximal and distal augmentation an d respiration. LEFT LEG: There is normal compressibility of the deep venous system from the inguinal region to the proximal ca lf. No echogenic clot is seen in the lumen of the common femoral, femoral, popliteal, and posterior tibial veins. There is a normal response of the venous system to proximal and distal augmentation an d respiration. CONCLUSION: Normal examination. Abelardo Marshall Jr., MD on February 18, 2017 at 18:04 Board Certified Radiologist. This report was verified electronically.
--- NOTE | 2017-02-18 18:30 | RADRPT ---
EXAM DATE/TIME: 02/18/2017 17:08 [facility] COMPARISON: No previous studies available for comparison. INDICATIONS : Preop cardiac surgery. MEDICAL HISTORY : Asthma. Hyperlipid. SURGICAL HISTORY : None. ENCOUNTER: Initial ACUITY: 1 day PAIN SCORE: 0/10 LOCATION: Bilateral leg. GREATER SAPHENOUS VEIN THIGH: PROXIMAL: Right 6 mm Left 7 mm MID: Right 3 mm Left 3 mm DISTAL: Right 3 mm Left 3 mm CALF: PROXIMAL: Right 2 mm Left 2 mm MID: Right 1 mm Left 1 mm DISTAL: Right 1 mm Left Non-visualized FINDINGS: The venous system of the lower extremities are patent by color Doppler imaging. Measurements of the leg veins (in mm) are listed above. CONCLUSION: Venous mapping as delineated above. Remi Barrera MD on February 18, 2017 at 18:27 Board Certified Radiologist. This report was verified electronically.
--- NOTE | 2017-02-18 18:32 | RADRPT ---
EXAM DATE/TIME: 02/18/2017 17:28 [facility] COMPARISON: No previous studies available for comparison. INDICATIONS : Preop cardiac surgery. MEDICAL HISTORY : Hyperlipid. SURGICAL HISTORY : None. ENCOUNTER: Initial ACUITY: 1 day PAIN SCORE: 0/10 LOCATION: Bilateral neck PEAK SYSTOLIC VELOCITIES (cm/sec): ICA/CCA RATIO: Right: 0.8 Left: 0.4 ICA: Right: 81 Left: 52 CCA: Right: 95 Left: 128 ECA: Right: 48 Left: 53 VERTEBRAL: Right: 31 antegrade Left: 26 antegrade Elevated flow velocities and ICA/CCA ratios have been found to correlate with increased degrees of vessel stenosis, calculated as percentage of diameter relative to a normal segment of distal ICA/CCA FINDINGS: RIGHT CAROTID: No significant stenosis is visualized. The waveforms are within normal limits. LEFT CAROTID: No significant stenosis is visualized. The waveforms are within normal limits. VERTEBRAL ARTERIES: Antegrade flow is seen in both vertebral arteries. MISCELLANEOUS: None. CONCLUSION: No significant plaque is seen. Remi Barrera MD on February 18, 2017 at 18:28 Board Certified Radiologist. This report was verified electronically.
[2017-02-18] MEDS: CARVEDILOL 6.25 MG TAB PO SCH (20:22)
[2017-02-18] MEDS: FLUTICASONE PROPIONATE 110 MCG/ACT 12 GM INHALER INH SCH (20:23)
[2017-02-18] MEDS: MUPIROCIN 2% OINT 1 APPLIC/GM SYR EACH NARE SCH (20:23)
[2017-02-18] MEDS: SODIUM CHLORIDE 0.9% FLUSH 10 ML FLUSH IV FLUSH SCH (21:00)
[2017-02-18 23:21] LABS: APTT (PATIENT) 29.7 SEC (24.3-30.1)
[2017-02-19] VITALS (13 sets, daily range): BP systolic 98–128; BP diastolic 66–76; PULSE 80–106; RESP 16–18; TEMP 97.9–98.2; O2SAT 90–100
[2017-02-19 06:07] LABS: AUTOMATED NEUTROPHIL # 6.8 TH/MM3 (1.8-7.7); BASOPHIL % 0.1 % (0.0-2.0); EOSINOPHIL % 0.1 % (0.0-4.0); HEMO FLAGS DIFF FINAL; LYMPH % 11.4 % (9.0-44.0); MEAN CELL VOLUME 88.8 FL (80.0-100.0); MEAN CORPUSCULAR HEMOGLOBIN 29.4 PG (27.0-34.0); MEAN CORPUSCULAR HGB CONC 33.1 % (32.0-36.0); MONO % 7.8 % (0.0-8.0); NEUT % 80.6 % (16.0-70.0); PLATELET COUNT 274 TH/MM3 (150-450); RED BLOOD COUNT 3.94 MIL/MM3 (4.50-5.90); WHITE BLOOD COUNT 8.4 TH/MM3 (4.0-11.0)
[2017-02-19 06:15] LABS: APTT (PATIENT) 35.7 SEC (24.3-30.1)
[2017-02-19 06:29] LABS: BICARBONATE 28.7 MEQ/L (21.0-32.0); POTASSIUM 4.4 MEQ/L (3.5-5.1)
[2017-02-19] MEDS: NS 1000P @30 MLS/HR (KVO) IV SCH (07:00)
[2017-02-19] MEDS: ASPIRIN EC 81 MG TABEC PO SCH (08:34)
[2017-02-19] MEDS: CARVEDILOL 6.25 MG TAB PO SCH (08:34)
[2017-02-19] MEDS: SODIUM CHLORIDE 0.9% FLUSH 10 ML FLUSH IV FLUSH SCH ×2 (08:35→20:49)
[2017-02-19] MEDS: FLUTICASONE PROPIONATE 110 MCG/ACT 12 GM INHALER INH SCH ×2 (08:35→20:50)
--- NOTE | 2017-02-19 08:43 | PD.CARD.PN ---
Subjective Subjective Remarks feeling well. Denies chest pain, SOB or palpitations (Radha Sr) Objective Medications Current Medications Medications (Trade) Dose Ordered Sig/Syed Route Start Time Stop Time Status Last Admin (NS 1000 ml Inj) 1,000 ml @ 30 mls/hr Q24H IV 02/18/17 07:00 (Percocet 5-325 Mg) 1 tab Q4H PRN PO 02/18/17 09:30 (Percocet 5-325 Mg) 2 tab Q4H PRN PO 02/18/17 09:30 (Ativan Inj) 0.5 mg UNSCH PRN IV 02/18/17 09:30 02/19/17 09:29 Atropine Sulfate 0.5 mg 0.5 mg UNSCH PRN IV 02/18/17 09:30 (NS 250 ml Inj) 250 ml @ 500 mls/hr ONCE PRN IV 02/18/17 09:30 02/19/17 09:29 (Reglan Inj) 10 mg Q4H PRN IV 02/18/17 09:30 (Zofran Inj) 4 mg Q4H PRN IV 02/18/17 09:30 Lidocaine HCl 10 ml 10 ml UNSCH PRN INFIL 02/18/17 09:30 02/19/17 09:29 Nitroglycerin/ Dextrose 250 ml @ 0 mls/hr TITRATE IV 02/18/17 09:45 (Heparin-D5W Inj) 250 ml @ 0 mls/hr TITRATE IV 02/18/17 09:45 02/18/17 10:39 (Narcan Inj) 0.4 mg UNSCH PRN IV 02/18/17 09:45 (Lipitor) 20 mg HS PO 02/18/17 21:00 02/18/17 20:23 (Flovent Hfa 110 Mcg Inh) 1 puff BID INH 02/18/17 21:00 02/19/17 08:35 (Lasix) 40 mg DAILY PO 02/19/17 09:00 02/19/17 08:34 (Ecotrin Ec) 81 mg DAILY PO 02/18/17 10:00 02/19/17 08:34 (Coreg) 6.25 mg Q12HR PO 02/18/17 21:00 02/19/17 08:34 (NS Flush) 2 ml BID IV FLUSH 02/18/17 21:00 02/19/17 08:35 (NS Flush) 2 ml UNSCH PRN IV FLUSH 02/18/17 14:30 (Bactroban Nasal 2% Oint) 1 applic BID EACH NARE 02/18/17 21:00 02/23/17 20:59 02/18/17 20:23 Vital Signs / I&O Vital Signs Date Time Temp Pulse Resp B/P Pulse Ox O2 Delivery O2 Flow Rate FiO2 02/19/17 03:00 97.9 83 18 128/76 90 02/19/17 03:00 101 02/18/17 23:00 79 02/18/17 23:00 97.1 79 20 110/71 97 02/18/17 21:38 94 Nasal Cannula 3.00 02/18/17 19:00 97.3 91 18 115/75 97 02/18/17 19:00 91 02/18/17 15:00 98.4 95 16 112/75 99 02/18/17 15:00 95 02/18/17 12:49 98 Nasal Cannula 3.00 02/18/17 11:18 97 02/18/17 11:05 98.2 96 20 105/69 97 I/O 02/18/17 02/18/17 02/18/17 02/19/17 02/19/17 02/19/17 07:00 15:00 23:00 07:00 15:00 23:00 Intake Total 893 ml 908 ml Output Total 650 ml 500 ml Balance 243 ml 408 ml Intake Oral 840 ml 720 ml IV Total 53 ml 188 ml Output Urine Total 650 ml 500 ml Stool Total 0 ml 0 ml Physical Exam GENERAL: SKIN: Warm and dry. HEAD: Atraumatic. Normocephalic. EYES: Pupils equal and round. ENT: No nasal bleeding or discharge. NECK: Trachea midline. No JVD. CARDIOVASCULAR: Regular rate and rhythm. No murmur RESPIRATORY: No accessory muscle use. Clear to auscultation. Breath sounds equal bilaterally. GASTROINTESTINAL: Abdomen soft, non-tender, nondistended. MUSCULOSKELETAL: Extremities without clubbing, cyanosis, or edema. No obvious deformities. NEUROLOGICAL: Awake and alert. No obvious cranial nerve deficits. . Normal speech. PSYCHIATRIC: Appropriate mood and affect; insight and judgment normal. Laboratory Laboratory Tests Test 5/402/18/17 02/18/17 02/18/17 12:43 15:30 16:17 16:30 White Blood Count 4.8 TH/MM3 Red Blood Count 4.12 MIL/MM3 Hemoglobin 12.3 GM/DL Hematocrit 36.7 % Mean Corpuscular Volume 89.0 FL Mean Corpuscular Hemoglobin 29.9 PG Mean Corpuscular Hemoglobin 33.6 % Concent Red Cell Distribution Width 15.0 % Platelet Count 279 TH/MM3 Mean Platelet Volume 8.6 FL Prothrombin Time 11.3 SEC Prothromb Time International 1.0 RATIO Ratio Activated Partial 24.3 SEC 22.9 SEC Thromboplast Time Nasal Screen MRSA (PCR) MRSA DETECTED Urine Color YELLOW Urine Turbidity CLEAR Urine pH 5.5 Urine Specific [place] 1.034 Urine Protein NEG mg/dL Urine Glucose (UA) NEG mg/dL Urine Ketones NEG mg/dL Urine Occult Blood NEG Urine Nitrite NEG Urine Bilirubin NEG Urine Urobilinogen LESS THAN 2.0 MG/DL Urine Leukocyte Esterase NEG Urine WBC LESS THAN 1 /hpf Urine Squamous Epithelial <1 /hpf Cells Microscopic Urinalysis Comment CULT NOT INDICATED Test 02/18/17 02/19/17 22:18 05:26 Activated Partial 29.7 SEC 35.7 SEC Thromboplast Time White Blood Count 8.4 TH/MM3 Red Blood Count 3.94 MIL/MM3 Hemoglobin 11.6 GM/DL Hematocrit 35.0 % Mean Corpuscular Volume 88.8 FL Mean Corpuscular Hemoglobin 29.4 PG Mean Corpuscular Hemoglobin 33.1 % Concent Red Cell Distribution Width 15.0 % Platelet Count 274 TH/MM3 Mean Platelet Volume 8.7 FL Neutrophils (%) (Auto) 80.6 % Lymphocytes (%) (Auto) 11.4 % Monocytes (%) (Auto) 7.8 % Eosinophils (%) (Auto) 0.1 % Basophils (%) (Auto) 0.1 % Neutrophils # (Auto) 6.8 TH/MM3 Lymphocytes # (Auto) 1.0 TH/MM3 Monocytes # (Auto) 0.7 TH/MM3 Eosinophils # (Auto) 0.0 TH/MM3 Basophils # (Auto) 0.0 TH/MM3 CBC Comment DIFF FINAL Differential Comment Sodium Level 143 MEQ/L Potassium Level 4.4 MEQ/L Chloride Level 108 MEQ/L Carbon Dioxide Level 28.7 MEQ/L Anion Gap 6 MEQ/L Blood Urea Nitrogen 19 MG/DL Creatinine 0.97 MG/DL Estimat Glomerular Filtration 94 ML/MIN Rate Random Glucose 118 MG/DL Calcium Level 8.8 MG/DL Imaging Last Impressions Lower Extremity Ultrasound 02/18/17 0000 Signed Impressions: Service Date/Time: February 17:08 - CONCLUSION: Venous mapping as delineated above. Remi Barrera MD Carotid Artery Ultrasound 02/18/17 0000 Signed Impressions: Service Date/Time: February 17:28 - CONCLUSION: No significant plaque is seen. Remi Barrera MD (Radha Sr) Assessment and Plan Assessment and Plan CAD- s/p PCI BMS LAD (Nov 2016), with staged intervention of RCA. cardiac cath yesterday showed severe multivessel disease not amenable to percutaneous intervention. CV has been consulted. cardiomyopathy, ischemic- EF 35% with apical LV thrombus. cont heparin. awaiting results of P2Y12 assay (aRdha Sr) Assessment and Plan Surgery planned for next week reduce BB dose due to hypotension. Limited echo with definity contrast (had to order, none available) to visualize left ventricular apical thrombus extent. cont preop workup (Adebayo Alvarez MD) Radha Sr February 19, 2017 08:43 Adebayo Alvarez MD February 19, 2017 11:55
[2017-02-19] MEDS ORDERED: FUROSEMIDE 40 MG TAB PO SCH (09:00)
[2017-02-19] MEDS: HEPARIN-D5W INJ 250 ML IV SCH (09:03)
[2017-02-19] MEDS: MUPIROCIN 2% OINT 1 APPLIC/GM SYR EACH NARE SCH ×2 (12:08→20:49)
[2017-02-19 14:15] LABS: APTT (PATIENT) 31.6 SEC (24.3-30.1)
--- NOTE | 2017-02-19 15:07 | PD.CAR.PN ---
CVT Progress Note Subjective/Hospital Course: 02/19 Clinically stable Awaiting ECHO Plavix Verify on Wednesday with possible CABG on Wednesday Objective: Vital Signs Date Time Temp Pulse Resp B/P Pulse Ox O2 Delivery O2 Flow Rate FiO2 02/19/17 11:00 98.0 89 16 98/68 97 02/19/17 11:00 89 02/19/17 09:18 97 21 02/19/17 08:30 83 02/19/17 08:30 97.9 80 16 101/71 97 02/19/17 03:00 97.9 83 18 128/76 90 02/19/17 03:00 101 02/18/17 23:00 79 02/18/17 23:00 97.1 79 20 110/71 97 02/18/17 21:38 94 Nasal Cannula 3.00 02/18/17 19:00 97.3 91 18 115/75 97 02/18/17 19:00 91 Labs: Laboratory Tests Test 02/19/17 02/19/17 05:26 13:20 White Blood Count 8.4 TH/MM3 (4.0-11.0) Red Blood Count 3.94 MIL/MM3 (4.50-5.90) Hemoglobin 11.6 GM/DL (13.0-17.0) Hematocrit 35.0 % (39.0-51.0) Mean Corpuscular Volume 88.8 FL (80.0-100.0) Mean Corpuscular Hemoglobin 29.4 PG (27.0-34.0) Mean Corpuscular Hemoglobin 33.1 % Concent (32.0-36.0) Red Cell Distribution Width 15.0 % (11.6-17.2) Platelet Count 274 TH/MM3 (150-450) Mean Platelet Volume 8.7 FL (7.0-11.0) Neutrophils (%) (Auto) 80.6 % (16.0-70.0) Lymphocytes (%) (Auto) 11.4 % (9.0-44.0) Monocytes (%) (Auto) 7.8 % (0.0-8.0) Eosinophils (%) (Auto) 0.1 % (0.0-4.0) Basophils (%) (Auto) 0.1 % (0.0-2.0) Neutrophils # (Auto) 6.8 TH/MM3 (1.8-7.7) Lymphocytes # (Auto) 1.0 TH/MM3 (1.0-4.8) Monocytes # (Auto) 0.7 TH/MM3 (0-0.9) Eosinophils # (Auto) 0.0 TH/MM3 (0-0.4) Basophils # (Auto) 0.0 TH/MM3 (0-0.2) CBC Comment DIFF FINAL Differential Comment Activated Partial 35.7 SEC 31.6 SEC Thromboplast Time (24.3-30.1) (24.3-30.1) Sodium Level 143 MEQ/L (136-145) Potassium Level 4.4 MEQ/L (3.5-5.1) Chloride Level 108 MEQ/L (98-107) Carbon Dioxide Level 28.7 MEQ/L (21.0-32.0) Anion Gap 6 MEQ/L (5-15) Blood Urea Nitrogen 19 MG/DL (7-18) Creatinine 0.97 MG/DL (0.60-1.30) Estimat Glomerular Filtration 94 ML/MIN (>89) Rate Random Glucose 118 MG/DL (74-106) Calcium Level 8.8 MG/DL (8.5-10.1) Result Diagram: 02/19/17 0526 02/19/17 0526 Kb Nunes MD February 19, 2017 15:07
--- NOTE | 2017-02-19 19:00 | EC ---
Study Study Date:02/19/2017 STUDY CONCLUSIONS SUMMARY LEFT VENTRICLE: The cavity size was mildly dilated. Wall thickness was normal. Systolic function was severely reduced. The estimated ejection fraction was in the range of 20% to 25%. Diffuse hypokinesis. There was an apparent, medium-sized, 21mm (L) x 12mm (W), apical thrombus. If LV function is below 40, please consider prescribing an ACEI or ARB or document rationale for non-use. PROCEDURE DATA STUDY STATUS: Elective. Procedure: Transthoracic echocardiography. Image quality was good. Scanning was performed from the parasternal, apical, and subcostal acoustic windows. Study completion: The patient tolerated the procedure well. Transthoracic echocardiography. M-mode, complete 2D, complete spectral Doppler, and color Doppler. Patient status: Inpatient. CARDIAC ANATOMY LEFT VENTRICLE: The cavity size was mildly dilated. Wall thickness was normal. Systolic function was severely reduced. The estimated ejection fraction was in the range of 20% to 25%. Diffuse hypokinesis. There was an apparent, medium-sized, 21mm (L) x 12mm (W), apical thrombus. AORTIC VALVE: The valve appears to be grossly normal. Doppler: There was no stenosis. No significant regurgitation. MITRAL VALVE: The valve appears to be grossly normal. Doppler: There was no evidence for stenosis. Trace to mild regurgitation. LEFT ATRIUM: The atrium was at the upper limits of normal in size. PULMONIC VALVE: Not well visualized. Doppler: There was no evidence for stenosis. Trace regurgitation. TRICUSPID VALVE: The valve appears to be grossly normal. Doppler: There was no evidence for stenosis. Trace to mild regurgitation. PERICARDIUM: There was no pericardial effusion. BASIC MEASUREMENTS ADULT NORMAL Left ventricle LV internal dimension, ED, chordal level, *52.1 mm 43-52 PLAX LV internal dimension, ES, chordal level, *45 mm 23-38 PLAX Fractional shortening, chordal level, PLAX *14 % >29 LV posterior wall thickness, ED 10.2 mm IVS/LVPW ratio, ED 0.77 <1.3 Ventricular septum Septal thickness, ED 7.87 mm Aortic valve Leaflet separation 23 mm 15-26 Right ventricle RV internal dimension, ED, PLAX 20.7 mm 19-38 BASIC MEASUREMENTS ADULT NORMAL Aortic valve Leaflet separation 23 mm 15-26 Aorta Root diameter, ED 35 mm 20-37 Left atrium Anterior-posterior dimension, ES 37 mm 19-40 LA/aortic root ratio 1.06 LEGEND: Mean values are shown as u=mean value. Asterisk (*) alatorre values outside specified normal range. Prepared and signed by Ranjith Natarajan [id number]
[2017-02-19] MEDS: ATORVASTATIN 20 MG TAB PO SCH (20:49)
[2017-02-19] MEDS: CARVEDILOL 3.125 MG TAB PO SCH (20:49)
[2017-02-19 21:00] LABS: APTT (PATIENT) 37.6 SEC (24.3-30.1)
[2017-02-20] VITALS (24 sets, daily range): BP systolic 92–105; BP diastolic 47–68; PULSE 74–102; RESP 16–20; TEMP 98.4–98.9; O2SAT 16–99
[2017-02-20] MEDS: HEPARIN-D5W INJ 250 ML IV SCH ×2 (03:47→18:11)
[2017-02-20 04:16] LABS: APTT (PATIENT) 43.7 SEC (24.3-30.1)
[2017-02-20] MEDS: NS 1000P @30 MLS/HR (KVO) IV SCH (05:21)
[2017-02-20] MEDS: ASPIRIN EC 81 MG TABEC PO SCH (08:51)
[2017-02-20] MEDS: CARVEDILOL 3.125 MG TAB PO SCH ×2 (08:52→20:48)
[2017-02-20] MEDS: FLUTICASONE PROPIONATE 110 MCG/ACT 12 GM INHALER INH SCH ×2 (08:52→20:49)
[2017-02-20] MEDS: MUPIROCIN 2% OINT 1 APPLIC/GM SYR EACH NARE SCH ×2 (08:52→20:48)
[2017-02-20] MEDS: FUROSEMIDE 20 MG TAB PO SCH (08:52)
[2017-02-20] MEDS: SODIUM CHLORIDE 0.9% FLUSH 10 ML FLUSH IV FLUSH SCH ×2 (08:53→20:49)
[2017-02-20 11:32] LABS: APTT (PATIENT) 42.1 SEC (24.3-30.1)
--- NOTE | 2017-02-20 14:33 | HHI.PR ---
Subjective Remarks No chest pain Objective Vital Signs Date Time Temp Pulse Resp B/P Pulse Ox O2 Delivery O2 Flow Rate FiO2 02/20/17 14:00 84 02/20/17 13:00 84 02/20/17 12:00 74 02/20/17 11:00 75 02/20/17 11:00 98.8 81 20 105/68 99 02/20/17 10:00 78 02/20/17 09:00 92 02/20/17 08:00 102 02/20/17 07:00 98.6 90 20 92/53 94 02/20/17 07:00 101 02/20/17 06:29 94 02/20/17 05:02 81 02/20/17 04:14 82 02/20/17 04:12 98.4 95 16 96/63 16 02/20/17 03:16 80 02/20/17 02:10 97 02/20/17 01:25 89 02/20/17 00:05 78 02/19/17 23:32 98.0 86 16 99/68 97 02/19/17 23:30 85 02/19/17 22:15 106 02/19/17 21:00 90 02/19/17 20:36 85 02/19/17 19:20 98.2 89 16 110/66 95 02/19/17 18:12 84 02/19/17 17:19 85 18 104/70 100 02/19/17 15:00 86 02/19/17 15:00 98.0 86 18 105/76 95 I/O 02/19/17 02/19/17 02/19/17 02/20/17 02/20/17 02/20/17 07:00 15:00 23:00 07:00 15:00 23:00 Intake Total 908 ml 664 ml Output Total 500 ml 0 ml Balance 408 ml 664 ml Intake Oral 720 ml 480 ml IV Total 188 ml 184 ml Output Urine Total 500 ml Stool Total 0 ml 0 ml # Voids 2 Result Diagram: 02/19/17 0526 02/19/17 0526 Imaging Alert, fully oriented Lungs: ventilated Heart: S1, S2 regular Abdomen: soft, no mass Ext: no edema Last Impressions Lower Extremity Ultrasound 02/18/17 0000 Signed Impressions: Service Date/Time: February 17:08 - CONCLUSION: Venous mapping as delineated above. Remi Barrera MD Carotid Artery Ultrasound 02/18/17 0000 Signed Impressions: Service Date/Time: February 17:28 - CONCLUSION: No significant plaque is seen. Remi Barrera MD Current Medications Medications (Trade) Dose Ordered Sig/Syed Route Start Time Stop Time Status Last Admin (NS 1000 ml Inj) 1,000 ml @ 30 mls/hr Q24H IV 02/18/17 07:00 (Percocet 5-325 Mg) 1 tab Q4H PRN PO 02/18/17 09:30 (Percocet 5-325 Mg) 2 tab Q4H PRN PO 02/18/17 09:30 (Atropine Inj) 0.5 mg UNSCH PRN IV 02/18/17 09:30 (Reglan Inj) 10 mg Q4H PRN IV 02/18/17 09:30 Ondansetron HCl 4 mg 4 mg Q4H PRN IV 02/18/17 09:30 Nitroglycerin/ Dextrose 250 ml @ 0 mls/hr TITRATE IV 02/18/17 09:45 (Heparin-D5W Inj) 250 ml @ 0 mls/hr TITRATE IV 02/18/17 09:45 02/20/17 03:47 (Narcan Inj) 0.4 mg UNSCH PRN IV 02/18/17 09:45 (Lipitor) 20 mg HS PO 02/18/17 21:00 02/19/17 20:49 (Flovent Hfa 110 Mcg Inh) 1 puff BID INH 02/18/17 21:00 02/20/17 08:52 (Ecotrin Ec) 81 mg DAILY PO 02/18/17 10:00 02/20/17 08:51 (NS Flush) 2 ml BID IV FLUSH 02/18/17 21:00 02/20/17 08:53 (NS Flush) 2 ml UNSCH PRN IV FLUSH 02/18/17 14:30 (Bactroban Nasal 2% Oint) 1 applic BID EACH NARE 02/18/17 21:00 02/23/17 20:59 02/20/17 08:52 (Coreg) 3.125 mg Q12HR PO 02/19/17 21:00 02/20/17 08:52 (Lasix) 20 mg DAILY PO 02/20/17 09:00 02/20/17 08:52 Assessment and Plan Problem List: (1) STEMI (ST elevation myocardial infarction) Status: Acute Plan: [facility] indicated severe CAD with 90% LAD and CFx and RCA lesion. No chest pain Possible CABG Wednesday (2) Acute respiratory failure Status: Acute Plan: No SOB Doing well Chaka Mata MD February 20, 2017 14:33
[2017-02-20] MEDS: ATORVASTATIN 20 MG TAB PO SCH (20:48)
--- NOTE | 2017-02-20 22:09 | EKG ---
Date Performed: 02/19/2017 Time Performed: 07:43:50 PTAGE: 66 years EKG: Sinus rhythm Left axis deviation IV conduction defect Possible lateral infarct - age undetermined Possible anteri or infarct - age undetermined Abnormal ECG PREVIOUS TRACING : 11/20/2016 06.05 DOCTOR: Chaka Mata Interpretating Date/Time 02/20/2017 22:01:48
[2017-02-21] VITALS (24 sets, daily range): BP systolic 95–105; BP diastolic 63–70; PULSE 78–100; RESP 16–20; TEMP 98–99.1; O2SAT 98–99
[2017-02-21] MEDS: NS 1000P @30 MLS/HR (KVO) IV SCH (04:59)
[2017-02-21 05:59] LABS: APTT (PATIENT) 48.2 SEC (24.3-30.1)
[2017-02-21 06:08] LABS: HEMATOCRIT 34.9 % (39.0-51.0); MEAN CELL VOLUME 89.4 FL (80.0-100.0); MEAN CORPUSCULAR HEMOGLOBIN 29.1 PG (27.0-34.0); MEAN CORPUSCULAR HGB CONC 32.6 % (32.0-36.0); PLATELET COUNT 237 TH/MM3 (150-450); RED CELL DISTRIBUTION WIDTH 14.6 % (11.6-17.2); REVIEW FLAG FINAL; WHITE BLOOD COUNT 6.1 TH/MM3 (4.0-11.0)
[2017-02-21] MEDS: FUROSEMIDE 20 MG TAB PO SCH (09:54)
[2017-02-21] MEDS: MUPIROCIN 2% OINT 1 APPLIC/GM SYR EACH NARE SCH ×2 (09:54→20:32)
[2017-02-21] MEDS: SODIUM CHLORIDE 0.9% FLUSH 10 ML FLUSH IV FLUSH SCH ×2 (09:54→20:32)
[2017-02-21] MEDS: CARVEDILOL 3.125 MG TAB PO SCH ×2 (09:54→20:31)
[2017-02-21] MEDS: ASPIRIN EC 81 MG TABEC PO SCH (09:54)
--- NOTE | 2017-02-21 15:03 | HHI.PR ---
Subjective Remarks No chest pain Objective Vital Signs Date Time Temp Pulse Resp B/P Pulse Ox O2 Delivery O2 Flow Rate FiO2 02/21/17 14:00 92 02/21/17 13:00 84 02/21/17 12:00 82 02/21/17 11:30 81 02/21/17 11:30 98.1 98 16 101/63 98 02/21/17 10:00 84 02/21/17 09:00 84 02/21/17 08:00 94 02/21/17 07:45 98.0 98 16 104/65 98 02/21/17 07:45 98 02/21/17 06:17 92 02/21/17 05:03 78 02/21/17 04:00 83 02/21/17 03:20 98.7 95 16 99/67 99 02/21/17 03:20 85 02/21/17 02:50 82 02/21/17 01:20 85 02/21/17 00:32 85 02/21/17 00:32 98.7 83 18 95/63 98 02/20/17 22:05 88 02/20/17 21:06 82 02/20/17 19:50 98.9 81 16 96/57 97 02/20/17 19:25 80 02/20/17 18:00 84 02/20/17 17:00 78 02/20/17 16:00 88 I/O 02/20/17 02/20/17 02/20/17 02/21/17 02/21/17 02/21/17 07:00 15:00 23:00 07:00 15:00 23:00 Intake Total 664 ml 1090 ml 681 ml Output Total 0 ml 650 ml 325 ml Balance 664 ml 440 ml 356 ml Intake Oral 480 ml 720 ml 480 ml IV Total 184 ml 370 ml 201 ml Output Urine Total 650 ml 325 ml Stool Total 0 ml # Voids 2 2 # Bowel Movements 1 Result Diagram: 02/21/17 0445 02/19/17 0526 Imaging Alert, oriented, talking to family Lungs: ventilated Heart: S1, S2 regular, no gallop Abdomen: soft, no mass Ext: no edema Current Medications Medications (Trade) Dose Ordered Sig/Syed Route Start Time Stop Time Status Last Admin (NS 1000 ml Inj) 1,000 ml @ 30 mls/hr Q24H IV 02/18/17 07:00 (Percocet 5-325 Mg) 1 tab Q4H PRN PO 02/18/17 09:30 (Percocet 5-325 Mg) 2 tab Q4H PRN PO 02/18/17 09:30 (Atropine Inj) 0.5 mg UNSCH PRN IV 02/18/17 09:30 (Reglan Inj) 10 mg Q4H PRN IV 02/18/17 09:30 Ondansetron HCl 4 mg 4 mg Q4H PRN IV 02/18/17 09:30 Nitroglycerin/ Dextrose 250 ml @ 0 mls/hr TITRATE IV 02/18/17 09:45 (Heparin-D5W Inj) 250 ml @ 0 mls/hr TITRATE IV 02/18/17 09:45 02/20/17 18:11 (Narcan Inj) 0.4 mg UNSCH PRN IV 02/18/17 09:45 (Lipitor) 20 mg HS PO 02/18/17 21:00 02/20/17 20:48 (Flovent Hfa 110 Mcg Inh) 1 puff BID INH 02/18/17 21:00 02/20/17 20:49 (Ecotrin Ec) 81 mg DAILY PO 02/18/17 10:00 02/21/17 09:54 (NS Flush) 2 ml BID IV FLUSH 02/18/17 21:00 02/21/17 09:54 (NS Flush) 2 ml UNSCH PRN IV FLUSH 02/18/17 14:30 (Bactroban Nasal 2% Oint) 1 applic BID EACH NARE 02/18/17 21:00 02/23/17 20:59 02/21/17 09:54 (Coreg) 3.125 mg Q12HR PO 02/19/17 21:00 02/21/17 09:54 (Lasix) 20 mg DAILY PO 02/20/17 09:00 02/21/17 09:54 Assessment and Plan Problem List: (1) STEMI (ST elevation myocardial infarction) Status: Acute Plan: No chest pain. No SOB Stable Possible CABG Wednesday (2) Acute respiratory failure Status: Acute Plan: No SOB Doing well Chaka Mata MD February 21, 2017 15:03
[2017-02-21] MEDS: ATORVASTATIN 20 MG TAB PO SCH (20:31)
[2017-02-21] MEDS: FLUTICASONE PROPIONATE 110 MCG/ACT 12 GM INHALER INH SCH ×2 (20:31→21:00)
[2017-02-22] VITALS (24 sets, daily range): BP systolic 86–109; BP diastolic 53–71; PULSE 60–94; RESP 18–20; TEMP 97.7–98.8; O2SAT 97–98
[2017-02-22] MEDS: HEPARIN-D5W INJ 250 ML IV SCH ×2 (01:39→18:01)
[2017-02-22] MEDS: NS 1000P @30 MLS/HR (KVO) IV SCH (06:36)
[2017-02-22 06:38] LABS: P2Y12 REACTION UNITS (PRU) 257 PRU (194-418)
--- NOTE | 2017-02-22 08:34 | PD.CARD.PN ---
Subjective Subjective Remarks no complaints Objective Vital Signs / I&O Vital Signs Date Time Temp Pulse Resp B/P Pulse Ox O2 Delivery O2 Flow Rate FiO2 02/22/17 07:00 84 02/22/17 06:00 76 02/22/17 05:00 86 02/22/17 04:00 98.8 90 18 101/71 97 02/22/17 04:00 92 02/22/17 03:00 86 02/22/17 02:00 94 02/22/17 01:00 84 02/22/17 00:00 85 02/22/17 00:00 98.4 91 20 105/71 97 02/21/17 23:00 82 02/21/17 22:00 100 02/21/17 21:00 82 02/21/17 20:00 88 02/21/17 20:00 99.1 88 20 105/70 98 02/21/17 19:00 88 02/21/17 18:00 87 02/21/17 17:00 85 02/21/17 16:00 84 02/21/17 15:15 87 02/21/17 15:15 99.1 87 16 95/63 98 02/21/17 14:00 92 02/21/17 13:00 84 02/21/17 12:00 82 02/21/17 11:30 81 02/21/17 11:30 98.1 98 16 101/63 98 02/21/17 10:00 84 02/21/17 09:00 84 I/O 02/21/17 02/21/17 02/21/17 02/22/17 02/22/17 02/22/17 07:00 15:00 23:00 07:00 15:00 23:00 Intake Total 681 ml 958 ml 392 ml Output Total 325 ml 675 ml 825 ml Balance 356 ml 283 ml -433 ml Intake Oral 480 ml 800 ml 200 ml IV Total 201 ml 158 ml 192 ml Output Urine Total 325 ml 675 ml 825 ml # Voids 2 1 # Bowel Movements 1 Physical Exam GENERAL: SKIN: Warm and dry. HEAD: Normocephalic. EYES: No scleral icterus. No injection or drainage. NECK: Supple, trachea midline. No JVD or lymphadenopathy. CARDIOVASCULAR: Regular rate and rhythm without murmurs, gallops, or rubs. RESPIRATORY: Breath sounds equal bilaterally. No accessory muscle use. GASTROINTESTINAL: Abdomen soft, non-tender, nondistended. MUSCULOSKELETAL: No cyanosis, or edema. BACK: Nontender without obvious deformity. No CVA tenderness. Laboratory Laboratory Tests Test 02/22/17 04:50 Platelet Function P2Y12 React 257 PRU Units Blood Type A POSITIVE Antibody Screen NEGATIVE Crossmatch Leukocyte-Reduced Red Blood Cells Blood Bank Comment Imaging Last Impressions Lower Extremity Ultrasound 02/18/17 0000 Signed Impressions: Service Date/Time: February 17:08 - CONCLUSION: Venous mapping as delineated above. Remi Barrera MD Carotid Artery Ultrasound 02/18/17 0000 Signed Impressions: Service Date/Time: February 17:28 - CONCLUSION: No significant plaque is seen. Remi Barrera MD Assessment and Plan Assessment and Plan CAD - multivessel. STEMI s/p PCI LAD 11/2016. plan for CABG tues CM - apical akinesis with thrombus. anticoagulation. Adebayo Alvarez MD February 22, 2017 08:34
[2017-02-22] MEDS: CARVEDILOL 3.125 MG TAB PO SCH ×2 (09:03→20:12)
[2017-02-22] MEDS: ASPIRIN EC 81 MG TABEC PO SCH (09:03)
[2017-02-22] MEDS: FUROSEMIDE 20 MG TAB PO SCH (09:03)
[2017-02-22] MEDS: MUPIROCIN 2% OINT 1 APPLIC/GM SYR EACH NARE SCH ×2 (09:04→23:46)
[2017-02-22] MEDS: FLUTICASONE PROPIONATE 110 MCG/ACT 12 GM INHALER INH SCH ×2 (09:04→20:14)
[2017-02-22] MEDS: SODIUM CHLORIDE 0.9% FLUSH 10 ML FLUSH IV FLUSH SCH ×2 (09:04→23:48)
--- NOTE | 2017-02-22 18:46 | MB ---
cc: FOUZIA LOZANO MD DATE OF CONSULTATION 02/22/[address] Adebayo Alvarez. REASON FOR CONSULTATION Recurrent coronary artery disease. HISTORY OF THE PRESENT ILLNESS Mr. Campbell is a very pleasant 66-year-old -[place] gentleman with a very extensive known history of coronary artery disease. Briefly he had cath in November 2016 upon following the initial arrival with ST elevation myocardial infarction. The patient was a code cool candidate at that time, underwent a coronary angiogram with angioplasty and stenting of his LAD. He had an extensive hospital course at that time with recovery of his neurologic status and was doing well and now presents with recurrent chest discomfort. He was seen by Dr. Alvarez with plans to intervene on his remaining blockages following the initial emergent intervention to the LAD. Coronary angiogram at this time reveals complete restenosis of the LAD with total occlusion of the LAD diagonal with associated remaining circumflex, ramus and right coronary artery lesions. While engaging the right coronary artery the patient had a ventricular fibrillation arrest requiring defibrillation. He was subsequently admitted to the cardiovascular intensive care unit and I am now being consulted for surgical revascularization therapy. At the present time he is pain free, hemodynamically stable with no evidence ongoing ischemia. PAST MEDICAL HISTORY Significant for: 1. ST elevation myocardial infarctions, status post emergent salvage PCI with bare-metal stent to the LAD and intraaortic balloon pump at that time. 2. Severe cardiomyopathy with estimated ejection fraction 50-20%. 3. History of cardiac arrest. 4. 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 5. Hypertension. 6. Acute thrombus in the left ventricle. PAST SURGICAL HISTORY 1. As described above is significant for emergent coronary intervention. 2. History of inguinal lymphadenectomy. ALLERGIES THE PATIENT REPORTS ALLERGIES TO CONTRAST MEDIA. HE HAS A HISTORY OF MULTIDRUG RESISTANT ORGANISMS. SOCIAL HISTORY Remarkable for a former history of excessive smoking. Denies any history of illicit drug use but does have a history of alcohol use in the past. FAMILY HISTORY Noncontributory. MEDICATIONS ON ADMISSION Include: 1. Vicenta D. 2. Allopurinol. 3. Atorvastatin. 4. Betamethasone. 5. Clobetasol. 6. Plavix. 7. Flovent. 8. Lasix. 9. Potassium chloride. 10. Ventolin inhaler. 11. Coumadin. REVIEW OF SYSTEMS As above. All other parameters are negative. PHYSICAL EXAMINATION VITAL SIGNS: On physical examination today he is 175 cm tall, weighs 101 kg, blood pressure is 86/53 with a heart rate of 79, respiratory is 18. He is afebrile. HEENT: Normocephalic, atraumatic. Pupils are round and reactive. Extraocular muscles intact. NECK: No cervical lymphadenopathy, carotid bruits or JVD. CARDIOVASCULAR: Regular rate and rhythm. Normal S1-S2 without gallops, rubs or murmurs. LUNGS: Clear to auscultation bilaterally with good air exchange. ABDOMEN: Soft, nontender, nondistended. Normoactive bowel sounds. No hepatosplenomegaly. EXTREMITIES: Bilateral lower extremity pulses are intact without cyanosis, clubbing or edema. No venous varicosities. NEUROLOGIC: Intact with no focal deficits. IMPRESSION 1. History of ST elevation myocardial infarction status post cardiac arrest and emergent angioplasty and stenting. 2. Recurrent angina with complete in-stent restenosis of LAD stent. 3. Severe cardiomyopathy with an estimated ejection fraction of 15-20%. 4. Left ventricle apical thrombus. PLAN The clinical and angiographic findings were discussed in detail with the patient and his today. Therapeutic options available including coronary artery bypass grafting was recommended. I agree with Dr. Alvarez that he will maximally benefit from bypasses to the LAD, diagonal, ramus and potentially the right coronary artery distributions. In the setting of severe ventricular dysfunction, cardiomyopathy, as well as other medical comorbidities, surgical intervention remains high risk, however, at this point offers the optimal and ideal therapy for his underlying coronary pathology. We will plan on proceeding with surgical procedure as described above on 02/23/2017. He understands the surgical procedure carries significant risk because of his cardiomyopathy but he is willing to proceed as discussed above. In the meantime we will obtain vein mapping, PFTs and carotid duplex imaging. Thank you for allowing me to participate in this patient. Fouzia SIMMONS /12:28 PM /6:15 PM BLANCO
[2017-02-22] MEDS: ATORVASTATIN 20 MG TAB PO SCH (20:12)
[2017-02-23] VITALS (16 sets, daily range): BP systolic 85–117; BP diastolic 46–74; PULSE 66–93; RESP 12–18; TEMP 97.2–98.4; O2SAT 94–99
[2017-02-23 05:39] LABS: APTT (PATIENT) 49.2 SEC (24.3-30.1)
[2017-02-23] MEDS ORDERED: POTASSIUM CHLORIDE 20 MEQ/10 ML VIAL ONE ×2 (06:53→10:27)
[2017-02-23] MEDS: NS 1000P @30 MLS/HR (KVO) IV SCH (07:00)
[2017-02-23] MEDS ORDERED: VANCOMYCIN HCL 1000 MG VIAL ONE ×2 (07:20→08:22)
[2017-02-23] MEDS ORDERED: ceFAZolin 2 GM PREMIX 50 ML ONE (07:20)
[2017-02-23] MEDS ORDERED: HEPARIN SODIUM - SQ 10,000 UNITS/ML VIAL ONE (07:21)
[2017-02-23] MEDS ORDERED: DEXTROSE 5% IN WATER INJ 500 ML IV ONE (08:39)
[2017-02-23] MEDS ORDERED: LACTATED RINGER'S 1000 ML INJ 2,000 ML IV ONE (08:39)
[2017-02-23] MEDS ORDERED: NORMOSOL R INJ 1,000 ML IV ONE (08:41)
[2017-02-23] MEDS: FLUTICASONE PROPIONATE 110 MCG/ACT 12 GM INHALER INH SCH ×2 (09:00→21:00)
[2017-02-23] MEDS: MUPIROCIN 2% OINT 1 APPLIC/GM SYR EACH NARE SCH (09:00)
[2017-02-23] MEDS: ASPIRIN EC 81 MG TABEC PO SCH (09:00)
[2017-02-23] MEDS: CARVEDILOL 3.125 MG TAB PO SCH ×2 (09:00→21:00)
[2017-02-23] MEDS: SODIUM CHLORIDE 0.9% FLUSH 10 ML FLUSH IV FLUSH SCH ×2 (09:00→21:23)
[2017-02-23] MEDS: FUROSEMIDE 20 MG TAB PO SCH (09:00)
[2017-02-23] MEDS ORDERED: ceFAZolin INJ 1,000 MG VIAL IV ONE (13:02)
[2017-02-23] MEDS ORDERED: DOBUTamine PREMIX DRIP 250 ML IV SCH (13:09)
[2017-02-23] MEDS ORDERED: LACTATED RINGER'S 1000 ML INJ 500 ML IV PRN (13:09)
[2017-02-23] MEDS ORDERED: CALCIUM CHLORIDE 10% 1 GRAM/10 ML VIAL IV PRN (13:15)
[2017-02-23] MEDS ORDERED: ALBUMIN HUMAN 5% 12.5 GM/250 ML BOTTLE IV PRN (13:15)
[2017-02-23] MEDS ORDERED: CALCIUM CHLORIDE INJ 1 GM in SODIUM CHLORIDE 0.9% INJ 100 ML IV PRN (13:15)
[2017-02-23] MEDS ORDERED: hydrALAZINE HCL 20 MG/ML VIAL IV PRN (13:15)
[2017-02-23] MEDS ORDERED: POTASSIUM CHLOR 20 MEQ PREMIX 100 ML IV PRN ×3 (13:15)
[2017-02-23] MEDS ORDERED: POTASSIUM CHLORIDE 20 MEQ CONTROLLED RELEASE TAB PO PRN ×2 (13:15)
[2017-02-23] MEDS ORDERED: ACETAMINOPHEN 650 MG SUPP RECTAL PRN (13:15)
[2017-02-23] MEDS ORDERED: NITROGLYCERIN-DEXTROSE INJ 250 ML IV SCH (13:15)
[2017-02-23] MEDS ORDERED: DEXTROSE 50% IN WATER 50 ML VIAL(D50) IV PUSH PRN (13:15)
[2017-02-23] MEDS ORDERED: MORPHINE SULFATE 4 MG/ML INJ IV PRN (13:15)
[2017-02-23] MEDS ORDERED: DOPamine INJ PREMIX 500 ML IV SCH (13:15)
[2017-02-23] MEDS ORDERED: MAGNESIUM SULFATE INJ 2 GM in SODIUM CHLORIDE 0.9% INJ 100 ML IV PRN ×4 (13:15)
[2017-02-23] MEDS ORDERED: ONDANSETRON HCL 4 MG/2 ML VIAL IV PUSH PRN (13:15)
[2017-02-23] MEDS ORDERED: KETOROLAC TROMETHAMINE 30 MG/ML (IVP) VIAL IV PUSH PRN (13:15)
[2017-02-23] MEDS ORDERED: MEPERIDINE HCL 25 MG/ML VIAL IV PRN (13:15)
[2017-02-23] MEDS ORDERED: METOPROLOL TARTRATE 5 MG/5 ML VIAL IV PUSH PRN (13:15)
[2017-02-23] MEDS ORDERED: Post-op Orders (for Pharmacy) MISC OTHER ONE (13:15)
--- NOTE | 2017-02-23 13:27 | PD.OP ---
cc: Kb Nunes MD; Adebayo Alvarez MD Operative Report Date of Surgery: February 23, 2017 Preoperative Diagnosis: Postoperative Diagnosis: Procedure: 1. Urgent Off-pump Coronary Artery Bypass Grafting x 5 with left internal mammary artery (MCMILLAN) to Diagonal 1 (D1), reverse saphenous vein graft to thel eft anterior descending (LAD), reverse saphenous vein graft to the RCA, reverse sequential saphenous vein graft to the ramus marginalis and to the OM1 2. Left Leg Endoscopic Vein [place] 3. Intraoperative Vein Mapping. . Surgeon: Kb Nunes [employer] Tool Driller(s): Milan Amin Operation and Findings: PREPROCEDURE DIAGNOSES 1. Severe Multi Vessel Coronary Artery Disease. 2. Left Main Stenosis 3. Unstable Angina 4. Acute Renal Insufficiency POSTPROCEDURE DIAGNOSES 1. Severe Multi Vessel Coronary Artery Disease. 2. Severe Left Ventricular Dysfunction (EF 15-20%) 3. S/P Cardiac Arrest 4. Left Ventricular Thrombus SURGICAL PROCEDURE 1. Urgent Off-pump Coronary Artery Bypass Grafting x 5 with left internal mammary artery (MCMILLAN) to Diagonal 1 (D1), reverse saphenous vein graft to thel eft anterior descending (LAD), reverse saphenous vein graft to the RCA, reverse sequential saphenous vein graft to the ramus marginalis and to the OM1 2. Left Leg Endoscopic Vein [place] 3. Intraoperative Vein Mapping. SURGEON Kb Nunes MD ORGANIC EXTRACTIONS TECHNICIAN Pepper Amin DIRECTOR TELEMETRYAdan Duong [facility] CENTERAdan ANESTHESIA General endotracheal ACCOUNTS RECEIVABLE EXECUTIVE TANYA Quintanilla MD PREPARATION ChloraPrep. COUNTS Needle, sponge, and instrument counts were correct. DRAINS Two 32-Pakistani mediastinal tubes. COMPLICATIONS None. INDICATIONS FOR PROCEDURE The patient is a 66-year-old presenting with chest pain and cardiac arrest. Patient was noted to have multi-vessel coronary artery disease. The patient is being brought to the operating room for surgical revascularization therapy. PROCEDURE Patient was brought to the operating room and placed supine on the OR table. Following the induction of adequate general endotracheal anesthesia and placement of appropriate monitoring devices, intraoperative vein mapping was performed which revealed suitable-caliber conduit in bilateral lower extremities. The patient was then prepped and draped in standard sterile fashion. Next, 2500 units of intravenous heparin was given. The left greater saphenous vein was harvested endoscopically. This appeared to be a useable- caliber conduit. Simultaneously, a median sternotomy was performed and the left internal mammary artery dissected free off the posterior sternal table. The patient was systemically heparinized and anticoagulation monitored by serial ACT measurements. The internal mammary artery had excellent pulsatile flow in it and was a small-caliber conduit. It had a lesion in the mid to distal aspect with significant flow restriction, therefore, plans were made to use it for the diagonal graft. The pericardium was then divided in the midline, the cradle created and targets analyzed. At this point, all anastomoses were performed in a beating-heart fashion using the Maquet stabilizing system with intracoronary shunts. The left internal mammary artery was anastomosed to the diagonal 1 ( 1.75 mm) in an end-to-side fashion using 7-0 Prolene. Segment of saphenous vein graft was then anastomosed to the LAD (2 mm) in an end-to-side fashion using a running 7-0 Prolene. The next segment was anastomosed to the RCA (2.0 mm) in an end-to-side fashion using a running 7-0 Prolene. The final segment of saphenous vein graft was then anastomosed to the ramus (2.0) in a side to side fashion and to the OM1 (1.75 mm) in an end-to-side fashion using 7-0 Prolene. The proximal anastomoses were then constructed to the ascending aorta in a running manner using 6-0 Prolene. All anastomotic sites were inspected and appeared to be hemostatic and patent. Protamine solution was given. Strict hemostasis was assured. The closure was undertaken. 2 chest tubes were placed. The pericardium was reapproximated in the midline. The sternum was approximated using sternal wires. The muscular and fascial layer were then closed in 3 layers. The endoscopic vein harvest site was closed in 2 layers. ASIF at the conclusion of the procedure demonstrated the LV thrombus to be intact and of the same size. The patient tolerated the procedure well and was transferred to CVICU in stable condition. Kb Nunes MD February 23, 2017 13:27
[2017-02-23] MEDS: ACETAMINOPHEN 1000 MG/100 ML VIAL IV SCH ×2 (14:00→21:22)
[2017-02-23] MEDS ORDERED: RESP: ALBUTEROL 2.5 MG/IPRATROPIUM 0.5 MG NEB (PRN) NEB (14:15)
[2017-02-23] MEDS ORDERED: RESP: RACEPINEPHRINE 2.25% 0.5 ML NEB NEB PRN (14:15)
[2017-02-23] MEDS ORDERED: fentaNYL CITRATE 1000 MCG/20 ML VIAL ONE (14:34)
[2017-02-23] MEDS ORDERED: MIDAZOLAM HCL 5 MG/5 ML VIAL ONE (14:34)
[2017-02-23] MEDS ORDERED: INSULIN REGULAR (IV INFUSION) 100 UNITS in SODIUM CHLORIDE 0.9% INJ 99 ML IV SCH (15:00)
[2017-02-23] MEDS ORDERED: PHENYLEPHRINE INJ 40 MG in DEXTROSE 5% IN WATE 500 ML INJ 496 ML IV SCH ×2 (15:00)
[2017-02-23] MEDS ORDERED: EPINEPHrine (1:1000) INJ 4 MG in DEXTROSE 5% IN WATER INJ 246 ML IV SCH ×2 (15:00)
[2017-02-23] MEDS ORDERED: DEXMEDETOMIDINE INJ 200 MCG in SODIUM CHLORIDE 0.9% INJ 50 ML IV SCH (15:00)
[2017-02-23] MEDS ORDERED: CLEVIDIPINE INJ 50 ML IV SCH (15:00)
--- NOTE | 2017-02-23 16:49 | RADRPT ---
EXAM DATE/TIME: 02/23/2017 14:09 [facility] COMPARISON: CHEST SINGLE AP, December 02, 2016, 4:18. INDICATIONS : Post CABG. MEDICAL HISTORY : Myocardial infarction. Asthma. SURGICAL HISTORY : CABG. Intra-aortic balloon pump. ENCOUNTER: Subsequent ACUITY: 4 - 6 days PAIN SCORE: Non-responsive. LOCATION: chest FINDINGS: Postsurgical changes are noted following open heart surgery. Support devices which including endotracheal tube, nasogastric tube, mediastinal drain, left thoracos edy tube and left subclavian central venous catheter are in good position. The bases are hypoaerated with mild atelectasis. There are no significant congestive changes. There i s no evidence of pneumothorax. CONCLUSION: Satisfactory postoperative chest following open heart surgery. Basilar hypoaeration with mild atelectasis. Support devices are in good position. Manuel Thornton MD on February 23, 2017 at 16:45 Board Certified Radiologist. This report was verified electronically.
[2017-02-23] MEDS: RESP: ALBUTEROL 2.5 MG/IPRATROPIUM 0.5 MG NEB (SCH) NEB ×2 (17:01→21:34)
[2017-02-23] MEDS: ceFAZolin 2 GM PREMIX 50 ML IV SCH (17:33)
[2017-02-23] MEDS: ATORVASTATIN 20 MG TAB PO SCH (21:22)
[2017-02-23] MEDS: AMIODARONE 200 MG TAB PO SCH (21:22)
[2017-02-24] VITALS (21 sets, daily range): BP systolic 103–128; BP diastolic 51–79; PULSE 87–107; RESP 16–18; TEMP 97.9–98.7; O2SAT 96–99
[2017-02-24] MEDS: ceFAZolin 2 GM PREMIX 50 ML IV SCH ×3 (02:14→18:00)
[2017-02-24] MEDS: ACETAMINOPHEN 1000 MG/100 ML VIAL IV SCH (02:15)
[2017-02-24] MEDS: RESP: ALBUTEROL 2.5 MG/IPRATROPIUM 0.5 MG NEB (SCH) NEB ×5 (04:44→18:57)
[2017-02-24] MEDS: PANTOPRAZOLE SOD 40 MG DELAYED RELEASE TAB PO SCH (04:57)
[2017-02-24 05:07] LABS: HEMATOCRIT 32.3 % (39.0-51.0); MEAN CORPUSCULAR HEMOGLOBIN 30.1 PG (27.0-34.0); MEAN CORPUSCULAR HGB CONC 33.4 % (32.0-36.0); PLATELET COUNT 200 TH/MM3 (150-450); RED BLOOD COUNT 3.59 MIL/MM3 (4.50-5.90); RED CELL DISTRIBUTION WIDTH 15.2 % (11.6-17.2); REVIEW FLAG FINAL; WHITE BLOOD COUNT 7.4 TH/MM3 (4.0-11.0)
[2017-02-24 05:31] LABS: BICARBONATE 23.6 MEQ/L (21.0-32.0); MAGNESIUM 2.3 MG/DL (1.5-2.5); POTASSIUM 4.3 MEQ/L (3.5-5.1)
--- NOTE | 2017-02-24 06:24 | RADRPT ---
EXAM DATE/TIME: 02/24/2017 05:06 [facility] COMPARISON: CHEST SINGLE AP, February 23, 2017, 14:09. INDICATIONS : Shortness of breath. MEDICAL HISTORY : Myocardial infarction. Asthma SURGICAL HISTORY : CABG. Intra-aortic balloon pump ENCOUNTER: Subsequent ACUITY: 1 week PAIN SCORE: Non-responsive. LOCATION: Bilateral chest FINDINGS: A single portable frontal view the chest shows interval extubation and removal of the nasogastric tub e. 2 left thoracostomy tubes remain. No pneumothorax. Bilateral basilar opacities. Elevation left hem idiaphragm. Heart is normal size. Median sternotomy wires. CONCLUSION: 1. No pneumothorax. 2. Bibasilar atelectasis. Abelardo Marshall Jr., MD on February 24, 2017 at 6:21 Board Certified Radiologist. This report was verified electronically.
--- NOTE | 2017-02-24 07:17 | PD.CAR.PN ---
CVT Progress Note Subjective/Hospital Course: 02/19 Clinically stable Awaiting ECHO Plavix Verify on Wednesday with possible CABG on Friday 02/23 SURGICAL PROCEDURE 1. Urgent Off-pump Coronary Artery Bypass Grafting x 5 with left internal mammary artery (MCMILLAN) to Diagonal 1 (D1), reverse saphenous vein graft to thel eft anterior descending (LAD), reverse saphenous vein graft to the RCA, reverse sequential saphenous vein graft to the ramus marginalis and to the OM1 2. Left Leg Endoscopic Vein [place] 3. Intraoperative Vein Mapping 02/24 Doing well Low-dose beta jesus therapy Will need Coumadin once CT are removed for LV thrombus Will need LifeVest for cardiomyopathy Transfer [facility] Objective: Vital Signs Date Time Temp Pulse Resp B/P Pulse Ox O2 Delivery O2 Flow Rate FiO2 02/24/17 04:00 94 16 122/72 98 104/59 02/24/17 04:00 98 Nasal Cannula 4.00 02/24/17 04:00 94 02/24/17 00:00 98.0 89 16 121/79 98 104/60 02/24/17 00:00 88 02/24/17 00:00 98 Nasal Cannula 6.00 02/23/17 21:35 95 Nasal Cannula 6.00 02/23/17 21:00 95 Nasal Cannula 6.00 02/23/17 20:00 98 Nasal Cannula 5.00 02/23/17 20:00 92 02/23/17 20:00 97.7 93 18 85/48 96 101/58 02/23/17 16:00 72 02/23/17 15:50 96 Nasal Cannula 6.00 02/23/17 15:50 96 Nasal Cannula 6 02/23/17 15:30 50 02/23/17 15:30 66 02/23/17 15:30 97.2 66 12 95 91/53 02/23/17 13:55 95 50 02/23/17 13:50 94 Mechanical Ventilator 50 02/23/17 13:50 83 02/23/17 13:50 97.3 83 15 110/64 94 102/46 02/23/17 13:50 50 02/23/17 13:50 83 02/23/17 08:00 92 02/23/17 07:30 97.7 89 17 117/74 99 Labs: Laboratory Tests Test 02/24/17 04:50 White Blood Count 7.4 TH/MM3 (4.0-11.0) Red Blood Count 3.59 MIL/MM3 (4.50-5.90) Hemoglobin 10.8 GM/DL (13.0-17.0) Hematocrit 32.3 % (39.0-51.0) Mean Corpuscular Volume 90.0 FL (80.0-100.0) Mean Corpuscular Hemoglobin 30.1 PG (27.0-34.0) Mean Corpuscular Hemoglobin 33.4 % Concent (32.0-36.0) Red Cell Distribution Width 15.2 % (11.6-17.2) Platelet Count 200 TH/MM3 (150-450) Mean Platelet Volume 9.1 FL (7.0-11.0) Sodium Level 139 MEQ/L (136-145) Potassium Level 4.3 MEQ/L (3.5-5.1) Chloride Level 107 MEQ/L (98-107) Carbon Dioxide Level 23.6 MEQ/L (21.0-32.0) Anion Gap 8 MEQ/L (5-15) Blood Urea Nitrogen 14 MG/DL (7-18) Creatinine 0.83 MG/DL (0.60-1.30) Estimat Glomerular Filtration 112 ML/MIN Rate (>89) Random Glucose 96 MG/DL (74-106) Calcium Level 8.6 MG/DL (8.5-10.1) Magnesium Level 2.3 MG/DL (1.5-2.5) Result Diagram: 02/24/1744902/24/17449 (1) CAD in [place] artery (2) Cardiomyopathy (3) Left ventricular apical thrombus following myocardial infarction (4) Left ventricular systolic dysfunction Problem Qualifiers (1) Cardiomyopathy: Qualified Code: I25.5 - Ischemic cardiomyopathy Kb Nunes MD February 24, 2017 07:17
[2017-02-24] MEDS ORDERED: BISACODYL 10 MG SUPP RECTAL PRN (07:30)
[2017-02-24] MEDS ORDERED: DEXTROSE 50% IN WATER 50 ML VIAL(D50) IV PRN (07:30)
[2017-02-24] MEDS ORDERED: diphenhydrAMINE HCL 50 MG CAP PO PRN (07:30)
[2017-02-24] MEDS ORDERED: SOD PHOSPHATE/SOD BIPHOSPHATE (ADULT) ENEMA 133ML RECTAL PRN (07:30)
[2017-02-24] MEDS ORDERED: GLUCAGON 1 MG/ML VIAL OTHER PRN (07:30)
[2017-02-24] MEDS ORDERED: CLOPIDOGREL 75 MG TAB PO SCH (09:00)
[2017-02-24] MEDS: AMIODARONE 200 MG TAB PO SCH ×2 (09:38→20:07)
[2017-02-24] MEDS: ASPIRIN 81 MG CHEW TAB PO SCH (09:38)
[2017-02-24] MEDS: SODIUM CHLORIDE 0.9% FLUSH 10 ML FLUSH IV FLUSH SCH ×2 (09:39→20:07)
[2017-02-24] MEDS: CLOPIDOGREL 75 MG TAB PO SCH (09:39)
[2017-02-24] MEDS: CARVEDILOL 3.125 MG TAB PO SCH ×2 (09:39→20:06)
[2017-02-24] MEDS: FUROSEMIDE 20 MG TAB PO SCH (09:39)
[2017-02-24] MEDS: INSULIN ASPART SUPPLEMENTAL SCALE SQ SCH ×4 (10:58→22:00)
[2017-02-24] MEDS: MULTIVITAMINS/MINERALS THERAPEUTIC TAB PO SCH (11:23)
[2017-02-24] MEDS: MAGNESIUM HYDROXIDE SUSP 30 ML CUP PO SCH (11:24)
[2017-02-24] MEDS: FLUTICASONE PROPIONATE 110 MCG/ACT 12 GM INHALER INH SCH ×2 (11:25→20:07)
[2017-02-24] MEDS: oxyCODONE/ACETAMINOPHEN 5 MG/325 MG TAB PO PRN ×2 (14:46→20:06)
--- NOTE | 2017-02-24 15:08 | PD.CARD.PN ---
Subjective Subjective Remarks doing well postop sitting up in chair Objective Medications Active Medications Amiodarone HCl 400 mg 400 mg Q12HR PO Last administered on 02/24/17 09:38; Admin Dose 400 MG; Start 02/23/17 at 21:00 Aspirin (Aspirin Chew) 81 mg DAILY PO Last administered on 02/24/17 09:38; Admin Dose 81 MG; Start 02/24/17 at 09:00 Bisacodyl (Dulcolax Supp) 10 mg UNSCH PRN RECTAL; Start 02/24/17 at 07:30; Stop 02/24/17 at 07:37; Status DC Cefazolin Sodium/ Dextrose (Ancef 2 Gm Premix) 50 ml @ 100 mls/hr Q8H IV Last administered on 02/24/17 09:38; Admin Dose 100 MLS/HR; Start 02/23/17 at 18:00; Stop 02/25/17 at 02:29 Clopidogrel Bisulfate (Plavix) 75 mg DAILY PO; Start 02/24/17 at 09:00; Stop 08/03 at 11:58; Status DC Clopidogrel Bisulfate (Plavix) 75 mg DAILY PO Last administered on 02/24/17 09: 39; Admin Dose 75 MG; Start 02/24/17 at 09:00 Dextrose (D50w (Vial) Inj) 25 ml UNSCH PRN IV; Start 02/24/17 at 07:30 Diphenhydramine HCl (Benadryl) 50 mg HS PRN PO; Start 02/24/17 at 07:30 Docusate Sodium (Colace) 100 mg BID PO; Start 02/24/17 at 21:00 Glucagon (Glucagon Inj) 1 mg UNSCH PRN OTHER; Start 02/24/17 at 07:30 Insulin Aspart (NovoLOG SUPPLEMENTAL SCALE) 1 02,06,10,14,18,22 SQ Last administered on 02/24/17 10:58; Admin Dose 1; Start 02/24/17 at 10:00 Magnesium Hydroxide (Milk Of Magnesia Liq) 30 ml DAILY PO Last administered on 11:24; Admin Dose 30 ML; Start 02/24/17 at 09:00 Multivitamins/ Minerals Therapeutic (Theragran M Tab) 1 tab DAILY PO Last administered on 02/24/17 11:23; Admin Dose 1 TAB; Start 02/24/17 at 09:00 Pantoprazole Sodium (Protonix) 40 mg DAILY@06 PO Last administered on 02/24/17t 04:57; Admin Dose 40 MG; Start 02/24/17 at 06:00 Polyethylene Glycol (Miralax) 17 gm DAILY PO; Start 02/25/17 at 09:00 Sennosides (Senokot) 8.6 mg HS PO; Start 02/24/17 at 21:00 Sodium Biphosphate/ Sodium Phosphate (Fleets Enema (Adult)) 133 ml UNSCH PRN RECTAL; Start 02/24/17 at 07:30 Vital Signs / I&O Vital Signs Date Time Temp Pulse Resp B/P Pulse Ox O2 Delivery O2 Flow Rate FiO2 02/24/17 14:55 94 02/24/17 14:50 98.7 96 18 112/73 99 02/24/17 13:00 90 02/24/17 12:00 87 02/24/17 11:18 18 02/24/17 11:16 18 02/24/17 11:00 91 18 103/65 99 02/24/17 11:00 99 Nasal Cannula 4.00 02/24/17 08:07 97 Nasal Cannula 4.00 02/24/17 07:30 98.4 96 18 104/51 97 Arterial Line 02/24/17 07:30 97 Nasal Cannula 6.00 02/24/17 07:30 99 02/24/17 04:00 94 16 122/72 98 104/59 02/24/17 04:00 98 Nasal Cannula 4.00 02/24/17 04:00 94 02/24/17 00:00 98.0 89 16 121/79 98 104/60 02/24/17 00:00 88 02/24/17 00:00 98 Nasal Cannula 6.00 02/23/17 21:35 95 Nasal Cannula 6.00 02/23/17 21:00 95 Nasal Cannula 6.00 02/23/17 20:00 98 Nasal Cannula 5.00 02/23/17 20:00 92 02/23/17 20:00 97.7 93 18 85/48 96 101/58 02/23/17 16:00 72 02/23/17 15:50 96 Nasal Cannula 6.00 02/23/17 15:50 96 Nasal Cannula 6 02/23/17 15:30 50 02/23/17 15:30 66 02/23/17 15:30 97.2 66 12 95 91/53 I/O 02/23/17 02/23/17 02/23/17 02/24/17 02/24/17 02/24/17 07:00 15:00 23:00 07:00 15:00 23:00 Intake Total 360 ml 2660 ml 1804 ml Output Total 450 ml 200 ml 725 ml Balance -90 ml 2460 ml 1079 ml Intake Oral 360 ml 0 ml 1160 ml IV Total 0 ml 2660 ml 644 ml Output Urine Total 450 ml 125 ml 540 ml Chest Tube Drainage Total 75 ml 185 ml # Bowel Movements 0 0 0 Physical Exam GENERAL: SKIN: Warm and dry. HEAD: Normocephalic. EYES: No scleral icterus. No injection or drainage. NECK: Supple, trachea midline. No JVD or lymphadenopathy. CARDIOVASCULAR: Regular rate and rhythm without murmurs, gallops, or rubs. RESPIRATORY: Breath sounds equal bilaterally. No accessory muscle use. GASTROINTESTINAL: Abdomen soft, non-tender, nondistended. MUSCULOSKELETAL: No cyanosis, or edema. BACK: Nontender without obvious deformity. No CVA tenderness. Laboratory Laboratory Tests Test 02/24/17 02/24/17 04:50 09:00 White Blood Count 7.4 TH/MM3 Red Blood Count 3.59 MIL/MM3 Hemoglobin 10.8 GM/DL Hematocrit 32.3 % Mean Corpuscular Volume 90.0 FL Mean Corpuscular Hemoglobin 30.1 PG Mean Corpuscular Hemoglobin 33.4 % Concent Red Cell Distribution Width 15.2 % Platelet Count 200 TH/MM3 Mean Platelet Volume 9.1 FL Sodium Level 139 MEQ/L Potassium Level 4.3 MEQ/L Chloride Level 107 MEQ/L Carbon Dioxide Level 23.6 MEQ/L Anion Gap 8 MEQ/L Blood Urea Nitrogen 14 MG/DL Creatinine 0.83 MG/DL Estimat Glomerular Filtration 112 ML/MIN Rate Random Glucose 96 MG/DL Calcium Level 8.6 MG/DL Magnesium Level 2.3 MG/DL Nasal Screen MRSA (PCR) MRSA DETECTED Imaging Last Impressions Chest X-Ray 02/24/17 0500 Signed Impressions: Service Date/Time: Friday, February 24, 2017 05:06 - CONCLUSION: 1. No pneumothorax. 2. Bibasilar atelectasis. Abelardo Marshall Jr., MD Lower Extremity Ultrasound 02/18/17 0000 Signed Impressions: Service Date/Time: February 17:08 - CONCLUSION: Venous mapping as delineated above. Remi Barrera MD Carotid Artery Ultrasound 02/18/17 0000 Signed Impressions: Service Date/Time: February 17:28 - CONCLUSION: No significant plaque is seen. Remi Barrera MD Assessment and Plan Problem List: (1) CAD in [place] artery (2) Cardiomyopathy (3) Left ventricular apical thrombus following myocardial infarction (4) Left ventricular systolic dysfunction Assessment and Plan CAD - multivessel. STEMI s/p PCI LAD 11/2016. s/p CABG. doing well postop CM - apical akinesis with thrombus. resume anticoagulation on DC. Would not proceed with LifeVest. I am hoping his EF will improve post revascularization, but of more concern is the apical LV thrombus. inappropriate (or appropriate) defibrillation could cause embolism and stroke. No arrhythmias to date, even since original STEMI. d/w dr mckeon. he is agreeable we will repeat echo in 3 months to assess EF and LV thrombus. Problem Qualifiers (1) Cardiomyopathy: Qualified Code: I25.5 - Ischemic cardiomyopathy Adebayo Alvarez MD February 24, 2017 15:08
[2017-02-24] MEDS: DOCUSATE SODIUM 100 MG CAP PO SCH (20:07)
[2017-02-24] MEDS: ATORVASTATIN 20 MG TAB PO SCH (20:07)
[2017-02-24] MEDS: SENNOSIDES 8.6 MG TAB PO SCH (20:07)
[2017-02-25] VITALS (29 sets, daily range): BP systolic 93–140; BP diastolic 62–83; PULSE 80–140; RESP 18–20; TEMP 98.3–100.2; O2SAT 91–100
[2017-02-25] MEDS: INSULIN ASPART SUPPLEMENTAL SCALE SQ SCH ×4 (02:00→22:16)
[2017-02-25] MEDS: ceFAZolin 2 GM PREMIX 50 ML IV SCH (03:07)
[2017-02-25] MEDS: oxyCODONE/ACETAMINOPHEN 5 MG/325 MG TAB PO PRN ×2 (04:05→18:39)
[2017-02-25] MEDS: PANTOPRAZOLE SOD 40 MG DELAYED RELEASE TAB PO SCH (06:01)
[2017-02-25 06:53] LABS: AUTOMATED NEUTROPHIL # 5.8 TH/MM3 (1.8-7.7); BASOPHIL % 0.5 % (0.0-2.0); EOSINOPHIL # 0.2 TH/MM3 (0-0.4); EOSINOPHIL % 2.1 % (0.0-4.0); HEMATOCRIT 31.4 % (39.0-51.0); HEMO FLAGS DIFF FINAL; LYMPHOCYTE # 0.9 TH/MM3 (1.0-4.8); MEAN CELL VOLUME 89.8 FL (80.0-100.0); MEAN CORPUSCULAR HEMOGLOBIN 29.7 PG (27.0-34.0); MEAN CORPUSCULAR HGB CONC 33.1 % (32.0-36.0); MONO % 12.2 % (0.0-8.0); NEUT % 73.2 % (16.0-70.0); PLATELET COUNT 182 TH/MM3 (150-450); RED CELL DISTRIBUTION WIDTH 15.4 % (11.6-17.2); WHITE BLOOD COUNT 7.9 TH/MM3 (4.0-11.0)
[2017-02-25 07:15] LABS: BICARBONATE 28.2 MEQ/L (21.0-32.0); MAGNESIUM 2.4 MG/DL (1.5-2.5); POTASSIUM 4.2 MEQ/L (3.5-5.1)
[2017-02-25] MEDS: RESP: ALBUTEROL 2.5 MG/IPRATROPIUM 0.5 MG NEB (SCH) NEB ×3 (07:33→20:00)
--- NOTE | 2017-02-25 08:17 | PD.CARD.PN ---
Subjective Subjective Remarks sitting up in chair doing well chest tube still in place Objective Medications Active Medications Aspirin (Aspirin Chew) 81 mg DAILY PO Last administered on 02/24/17 09:38; Admin Dose 81 MG; Start 02/24/17 at 09:00 Carvedilol (Coreg) 6.25 mg Q12HR PO; Start 02/25/17 at 09:00 Clopidogrel Bisulfate (Plavix) 75 mg DAILY PO; Start 02/24/17 at 09:00; Stop 08/03 at 11:58; Status DC Clopidogrel Bisulfate (Plavix) 75 mg DAILY PO Last administered on 02/24/17 09: 39; Admin Dose 75 MG; Start 02/24/17 at 09:00 Docusate Sodium (Colace) 100 mg BID PO Last administered on 02/24/17 20:07; Admin Dose 100 MG; Start 02/24/17 at 21:00 Insulin Aspart (NovoLOG SUPPLEMENTAL SCALE) 1 02,06,10,14,18,22 SQ Last administered on 02/24/17 10:58; Admin Dose 1; Start 02/24/17 at 10:00 Magnesium Hydroxide (Milk Of Magnesia Liq) 30 ml DAILY PO Last administered on 11:24; Admin Dose 30 ML; Start 02/24/17 at 09:00 Multivitamins/ Minerals Therapeutic (Theragran M Tab) 1 tab DAILY PO Last administered on 02/24/17 11:23; Admin Dose 1 TAB; Start 02/24/17 at 09:00 Polyethylene Glycol (Miralax) 17 gm DAILY PO; Start 02/25/17 at 09:00 Sennosides (Senokot) 8.6 mg HS PO Last administered on 02/24/17 20:07; Admin Dose 8.6 MG; Start 02/24/17 at 21:00 Vital Signs / I&O Vital Signs Date Time Temp Pulse Resp B/P Pulse Ox O2 Delivery O2 Flow Rate FiO2 02/25/17 07:34 99 Nasal Cannula 1.00 02/25/17 06:20 101 02/25/17 05:04 96 02/25/17 04:16 96 02/25/17 03:21 97 02/25/17 03:21 99.3 105 20 140/83 98 02/25/17 03:21 98 Nasal Cannula 2.00 02/25/17 02:12 98 02/25/17 01:24 102 02/25/17 00:02 98.4 98 19 108/77 99 02/25/17 00:02 99 Nasal Cannula 2.00 02/25/17 00:02 97 02/24/17 22:03 97 02/24/17 21:20 97 02/24/17 20:52 97.9 103 18 128/78 98 02/24/17 20:15 101 02/24/17 19:20 98 Nasal Cannula 2.00 02/24/17 19:20 97 02/24/17 18:57 99 Nasal Cannula 2.00 02/24/17 18:01 97 02/24/17 17:09 107 02/24/17 16:13 98.7 96 18 112/73 99 02/24/17 16:03 103 02/24/17 15:57 95 Nasal Cannula 3.00 02/24/17 15:48 18 02/24/17 15:00 100 02/24/17 14:55 94 02/24/17 14:50 98.7 96 18 112/73 99 02/24/17 14:45 96 Nasal Cannula 2.50 02/24/17 13:00 90 02/24/17 12:00 87 02/24/17 11:18 18 02/24/17 11:16 18 02/24/17 11:00 91 18 103/65 99 02/24/17 11:00 99 Nasal Cannula 4.00 I/O 02/24/17 02/24/17 02/24/17 02/25/17 02/25/17 02/25/17 07:00 15:00 23:00 07:00 15:00 23:00 Intake Total 1804 ml 580 ml 790 ml Output Total 725 ml 380 ml 265 ml Balance 1079 ml 200 ml 525 ml Intake Oral 1160 ml 480 ml 720 ml IV Total 644 ml 100 ml 70 ml Output Urine Total 540 ml 250 ml 200 ml Chest Tube Drainage Total 185 ml 130 ml 65 ml # Voids 1 # Bowel Movements 0 Physical Exam GENERAL: SKIN: Warm and dry. HEAD: Normocephalic. EYES: No scleral icterus. No injection or drainage. NECK: Supple, trachea midline. No JVD or lymphadenopathy. CARDIOVASCULAR: Regular rate and rhythm without murmurs, gallops, or rubs. RESPIRATORY: Breath sounds equal bilaterally. No accessory muscle use. GASTROINTESTINAL: Abdomen soft, non-tender, nondistended. MUSCULOSKELETAL: No cyanosis, or edema. BACK: Nontender without obvious deformity. No CVA tenderness. Laboratory Laboratory Tests Test 02/24/17 02/25/17 09:00 05:00 Nasal Screen MRSA (PCR) MRSA DETECTED White Blood Count 7.9 TH/MM3 Red Blood Count 3.50 MIL/MM3 Hemoglobin 10.4 GM/DL Hematocrit 31.4 % Mean Corpuscular Volume 89.8 FL Mean Corpuscular Hemoglobin 29.7 PG Mean Corpuscular Hemoglobin 33.1 % Concent Red Cell Distribution Width 15.4 % Platelet Count 182 TH/MM3 Mean Platelet Volume 9.6 FL Neutrophils (%) (Auto) 73.2 % Lymphocytes (%) (Auto) 12.0 % Monocytes (%) (Auto) 12.2 % Eosinophils (%) (Auto) 2.1 % Basophils (%) (Auto) 0.5 % Neutrophils # (Auto) 5.8 TH/MM3 Lymphocytes # (Auto) 0.9 TH/MM3 Monocytes # (Auto) 1.0 TH/MM3 Eosinophils # (Auto) 0.2 TH/MM3 Basophils # (Auto) 0.0 TH/MM3 CBC Comment DIFF FINAL Differential Comment Sodium Level 135 MEQ/L Potassium Level 4.2 MEQ/L Chloride Level 99 MEQ/L Carbon Dioxide Level 28.2 MEQ/L Anion Gap 8 MEQ/L Blood Urea Nitrogen 13 MG/DL Creatinine 1.05 MG/DL Estimat Glomerular Filtration 86 ML/MIN Rate Random Glucose 117 MG/DL Calcium Level 8.1 MG/DL Magnesium Level 2.4 MG/DL Assessment and Plan Problem List: (1) CAD in [place] artery (2) Cardiomyopathy (3) Left ventricular apical thrombus following myocardial infarction (4) Left ventricular systolic dysfunction Assessment and Plan CAD - multivessel. STEMI s/p PCI LAD 11/2016. s/p CABG. doing well postop anticoagulation on DC. Problem Qualifiers (1) Cardiomyopathy: Qualified Code: I25.5 - Ischemic cardiomyopathy Adebayo Alvarez MD February 25, 2017 08:17
[2017-02-25] MEDS: POLYETHYLENE GLYCOL 17 GM PKG PO SCH (09:00)
[2017-02-25] MEDS ORDERED: CARVEDILOL 6.25 MG TAB PO SCH (09:00)
[2017-02-25] MEDS: CLOPIDOGREL 75 MG TAB PO SCH (09:04)
[2017-02-25] MEDS: MULTIVITAMINS/MINERALS THERAPEUTIC TAB PO SCH (09:04)
[2017-02-25] MEDS: DOCUSATE SODIUM 100 MG CAP PO SCH ×2 (09:04→21:54)
[2017-02-25] MEDS: FUROSEMIDE 20 MG TAB PO SCH (09:05)
[2017-02-25] MEDS: MAGNESIUM HYDROXIDE SUSP 30 ML CUP PO SCH (09:05)
[2017-02-25] MEDS: ASPIRIN 81 MG CHEW TAB PO SCH (09:05)
[2017-02-25] MEDS: AMIODARONE 200 MG TAB PO SCH ×2 (09:05→21:00)
[2017-02-25] MEDS: SODIUM CHLORIDE 0.9% FLUSH 10 ML FLUSH IV FLUSH SCH ×2 (09:06→21:00)
[2017-02-25] MEDS: FLUTICASONE PROPIONATE 110 MCG/ACT 12 GM INHALER INH SCH ×2 (09:06→21:56)
--- NOTE | 2017-02-25 10:11 | PD.CAR.PN ---
CVT Progress Note Subjective/Hospital Course: 02/19 Clinically stable Awaiting ECHO Plavix Verify on Wednesday with possible CABG on Friday 02/23 SURGICAL PROCEDURE 1. Urgent Off-pump Coronary Artery Bypass Grafting x 5 with left internal mammary artery (MCMILLAN) to Diagonal 1 (D1), reverse saphenous vein graft to thel eft anterior descending (LAD), reverse saphenous vein graft to the RCA, reverse sequential saphenous vein graft to the ramus marginalis and to the OM1 2. Left Leg Endoscopic Vein [place] 3. Intraoperative Vein Mapping 02/24 Doing well Low-dose beta jesus therapy Will need Coumadin once CT are removed for LV thrombus Will need LifeVest for cardiomyopathy Transfer [facility] 02/25 D/C CT today Coumadin therapy Discharge planning Objective: Vital Signs Date Time Temp Pulse Resp B/P Pulse Ox O2 Delivery O2 Flow Rate FiO2 02/25/17 07:34 99 Nasal Cannula 1.00 02/25/17 06:20 101 02/25/17 05:04 96 02/25/17 04:16 96 02/25/17 03:21 97 02/25/17 03:21 99.3 105 20 140/83 98 02/25/17 03:21 98 Nasal Cannula 2.00 02/25/17 02:12 98 02/25/17 01:24 102 02/25/17 00:02 98.4 98 19 108/77 99 02/25/17 00:02 99 Nasal Cannula 2.00 02/25/17 00:02 97 02/24/17 22:03 97 02/24/17 21:20 97 02/24/17 20:52 97.9 103 18 128/78 98 02/24/17 20:15 101 02/24/17 19:20 98 Nasal Cannula 2.00 02/24/17 19:20 97 02/24/17 18:57 99 Nasal Cannula 2.00 02/24/17 18:01 97 02/24/17 17:09 107 02/24/17 16:13 98.7 96 18 112/73 99 02/24/17 16:03 103 02/24/17 15:57 95 Nasal Cannula 3.00 02/24/17 15:48 18 02/24/17 15:00 100 02/24/17 14:55 94 02/24/17 14:50 98.7 96 18 112/73 99 02/24/17 14:45 96 Nasal Cannula 2.50 02/24/17 13:00 90 02/24/17 12:00 87 02/24/17 11:18 18 02/24/17 11:16 18 02/24/17 11:00 91 18 103/65 99 02/24/17 11:00 99 Nasal Cannula 4.00 Labs: Laboratory Tests Test 02/25/17 05:00 White Blood Count 7.9 TH/MM3 (4.0-11.0) Red Blood Count 3.50 MIL/MM3 (4.50-5.90) Hemoglobin 10.4 GM/DL (13.0-17.0) Hematocrit 31.4 % (39.0-51.0) Mean Corpuscular Volume 89.8 FL (80.0-100.0) Mean Corpuscular Hemoglobin 29.7 PG (27.0-34.0) Mean Corpuscular Hemoglobin 33.1 % Concent (32.0-36.0) Red Cell Distribution Width 15.4 % (11.6-17.2) Platelet Count 182 TH/MM3 (150-450) Mean Platelet Volume 9.6 FL (7.0-11.0) Neutrophils (%) (Auto) 73.2 % (16.0-70.0) Lymphocytes (%) (Auto) 12.0 % (9.0-44.0) Monocytes (%) (Auto) 12.2 % (0.0-8.0) Eosinophils (%) (Auto) 2.1 % (0.0-4.0) Basophils (%) (Auto) 0.5 % (0.0-2.0) Neutrophils # (Auto) 5.8 TH/MM3 (1.8-7.7) Lymphocytes # (Auto) 0.9 TH/MM3 (1.0-4.8) Monocytes # (Auto) 1.0 TH/MM3 (0-0.9) Eosinophils # (Auto) 0.2 TH/MM3 (0-0.4) Basophils # (Auto) 0.0 TH/MM3 (0-0.2) CBC Comment DIFF FINAL Differential Comment Sodium Level 135 MEQ/L (136-145) Potassium Level 4.2 MEQ/L (3.5-5.1) Chloride Level 99 MEQ/L (98-107) Carbon Dioxide Level 28.2 MEQ/L (21.0-32.0) Anion Gap 8 MEQ/L (5-15) Blood Urea Nitrogen 13 MG/DL (7-18) Creatinine 1.05 MG/DL (0.60-1.30) Estimat Glomerular Filtration 86 ML/MIN (>89) Rate Random Glucose 117 MG/DL (74-106) Calcium Level 8.1 MG/DL (8.5-10.1) Magnesium Level 2.4 MG/DL (1.5-2.5) Result Diagram: 02/25/17 0500 02/25/17 0500 (1) CAD in [place] artery (2) Cardiomyopathy (3) Left ventricular apical thrombus following myocardial infarction (4) Left ventricular systolic dysfunction Problem Qualifiers (1) Cardiomyopathy: Qualified Code: I25.5 - Ischemic cardiomyopathy Kb Nunes MD February 25, 2017 10:11
[2017-02-25] MEDS ORDERED: DO NOT ADM ANY ANTICOAGULANT DRUGS OTHER PRN (10:45)
[2017-02-25] MEDS: METOPROLOL TARTRATE 25 MG TAB PO SCH ×2 (12:05→18:58)
[2017-02-25] MEDS ORDERED: METOPROLOL TARTRATE 25 MG TAB PO ONE (12:15)
[2017-02-25] MEDS ORDERED: WARFARIN SOD 5 MG TAB PO SCH (16:00)
[2017-02-25] MEDS ORDERED: AMIODARONE INJ 450 MG in D5W (EXCEL BAG) 241 ML IV SCH (21:15)
[2017-02-25] MEDS ORDERED: AMIODARONE 150 MG/D5W 97 ML BOLUS 10 MINUTES IV ONE ×2 (21:15)
[2017-02-25] MEDS: ATORVASTATIN 20 MG TAB PO SCH (21:54)
[2017-02-25] MEDS: SENNOSIDES 8.6 MG TAB PO SCH (21:54)
[2017-02-26] VITALS (30 sets, daily range): BP systolic 97–120; BP diastolic 69–85; PULSE 64–96; RESP 16; TEMP 97.6–98.8; O2SAT 95–100
[2017-02-26] MEDS: PANTOPRAZOLE SOD 40 MG DELAYED RELEASE TAB PO SCH (05:57)
[2017-02-26] MEDS: INSULIN ASPART SUPPLEMENTAL SCALE SQ SCH ×4 (05:57→21:00)
[2017-02-26 06:46] LABS: INTERNATIONAL NORMALIZED RATIO 1.1 RATIO; PROTHROMBIN TIME - PATIENT 11.8 SEC (9.8-11.6)
[2017-02-26] MEDS: RESP: ALBUTEROL 2.5 MG/IPRATROPIUM 0.5 MG NEB (SCH) NEB (07:45)
--- NOTE | 2017-02-26 08:16 | PD.CARD.PN ---
Subjective Subjective Remarks feeling well. appetite improving. Denies chest pain. (Radha Sr) Objective Medications Current Medications Medications (Trade) Dose Ordered Sig/Syed Route Start Time Stop Time Status Last Admin (Atropine Inj) 0.5 mg UNSCH PRN IV 02/18/17 09:30 (Reglan Inj) 10 mg Q4H PRN IV 02/18/17 09:30 (Narcan Inj) 0.4 mg UNSCH PRN IV 02/18/17 09:45 (Lipitor) 20 mg HS PO 02/18/17 21:00 02/25/17 21:54 (Flovent Hfa 110 Mcg Inh) 1 puff BID INH 02/18/17 21:00 02/25/17 21:56 (NS Flush) 2 ml BID IV FLUSH 02/18/17 21:00 02/25/17 21:00 (NS Flush) 2 ml UNSCH PRN IV FLUSH 02/18/17 14:30 (Lasix) 20 mg DAILY PO 02/20/17 09:00 02/25/17 09:05 (Albumin 5% Inj) 12.5 gm UNSCH PRN IV 02/23/17 13:15 02/23/17 18:13 (Aspirin Chew) 81 mg DAILY PO 02/24/17 09:00 02/25/17 09:05 (Plavix) 75 mg DAILY PO 02/24/17 09:00 02/25/17 09:04 (Protonix) 40 mg DAILY@06 PO 02/24/17 06:00 02/26/17 05:57 (Cordarone) 400 mg Q12HR PO 02/23/17 21:00 02/25/17 09:05 (Tylenol) 650 mg Q4H PRN PO 02/23/17 13:15 (Tylenol Supp) 650 mg Q4H PRN RECTAL 02/23/17 13:15 (Morphine Inj) 1 mg Q10M PRN IV 02/23/17 13:15 (Percocet 5-325 Mg) 1 tab Q3H PRN PO 02/23/17 13:15 02/25/17 18:39 (Percocet 5-325 Mg) 2 tab Q3H PRN PO 02/23/17 13:15 02/24/17 20:06 (fentaNYL INJ) 25 mcg Q1H PRN IV 02/23/17 13:15 02/23/17 18:14 Ondansetron HCl 4 mg 4 mg Q6H PRN IV PUSH 02/23/17 13:15 Potassium Chloride 100 ml @ 50 mls/hr UNSCH PRN IV 02/23/17 13:15 Potassium Chloride 100 ml @ 50 mls/hr UNSCH PRN IV 02/23/17 13:15 Potassium Chloride 100 ml @ 50 mls/hr UNSCH PRN IV 02/23/17 13:15 Magnesium Sulfate 2 gm/Sodium Chloride 104 ml @ 100 mls/hr UNSCH PRN IV 02/23/17 13:15 Magnesium Sulfate 2 gm/Sodium Chloride 104 ml @ 50 mls/hr UNSCH PRN IV 02/23/17 13:15 (Calcium Chloride Inj/NS Inj) 110 ml @ 100 mls/hr UNSCH PRN IV 02/23/17 13:15 (Calcium Chloride Inj) 0.5 gm UNSCH PRN IV 02/23/17 13:15 (D50w (Vial) Inj) 25 ml UNSCH PRN IV PUSH 02/23/17 13:15 (Colace) 100 mg BID PO 02/24/17 21:00 02/25/17 21:54 (Theragran M Tab) 1 tab DAILY PO 02/24/17 09:00 02/25/17 09:04 (Milk Of Magnesia Liq) 30 ml DAILY PO 02/24/17 09:00 02/25/17 09:05 (Miralax) 17 gm DAILY PO 02/25/17 09:00 (Senokot) 8.6 mg HS PO 02/24/17 21:00 02/25/17 21:54 (Fleets Enema (Adult)) 133 ml UNSCH PRN RECTAL 02/24/17 07:30 (Benadryl) 50 mg HS PRN PO 02/24/17 07:30 (NovoLOG SUPPLEMENTAL SCALE) 1 02,06,10,14,18,22 SQ 02/24/17 10:00 02/25/17 22:16 (D50w (Vial) Inj) 25 ml UNSCH PRN IV 02/24/17 07:30 (Glucagon Inj) 1 mg UNSCH PRN OTHER 02/24/17 07:30 (Coumadin) 5 mg DAILY@1600 PO 02/25/17 16:00 Hold Miscellaneous Information ALL NURSING DEPARTME... UNSCH PRN OTHER 02/25/17 10:45 02/26/17 10:44 Metoprolol Tartrate 25 mg 25 mg Q12HR PO 02/25/17 12:00 02/25/17 18:58 (Cordarone Inj/ D5W ([place]) Inj) 250 ml @ 0 mls/hr CONTINUOUS IV 02/25/17 21:15 Vital Signs / I&O Vital Signs Date Time Temp Pulse Resp B/P Pulse Ox O2 Delivery O2 Flow Rate FiO2 02/26/17 06:33 79 02/26/17 05:04 83 02/26/17 04:00 78 02/26/17 03:56 Nasal Cannula 2.00 50 02/26/17 03:56 97.6 86 120/85 96 02/26/17 03:00 78 02/26/17 02:00 76 02/26/17 01:00 84 02/26/17 00:00 74 02/25/17 23:00 Nasal Cannula 2.00 50 02/25/17 23:00 80 103/72 100 02/25/17 23:00 80 02/25/17 22:00 96 02/25/17 21:37 100 Nasal Cannula 2.00 02/25/17 21:00 96 02/25/17 20:00 102 02/25/17 19:00 98.8 94 101/70 99 02/25/17 19:00 97 02/25/17 19:00 Room Air 02/25/17 18:00 104 02/25/17 17:00 104 02/25/17 16:01 97 02/25/17 15:30 95 Room Air 02/25/17 15:30 99.5 127 20 93/62 95 02/25/17 15:00 109 02/25/17 14:00 126 02/25/17 13:01 138 02/25/17 12:00 138 02/25/17 11:45 96 Room Air 02/25/17 11:45 100.2 140 18 104/78 91 02/25/17 11:00 140 02/25/17 10:00 106 02/25/17 09:00 102 02/25/17 08:45 98.3 107 18 114/76 96 02/25/17 08:45 96 Room Air I/O 02/25/17 02/25/17 02/25/17 02/26/17 02/26/17 02/26/17 07:00 15:00 23:00 07:00 15:00 23:00 Intake Total 790 ml 480 ml 240 ml Output Total 265 ml 1200 ml 250 ml Balance 525 ml -720 ml -10 ml Intake Oral 720 ml 480 ml 240 ml IV Total 70 ml Output Urine Total 200 ml 1200 ml 250 ml Chest Tube Drainage Total 65 ml # Voids 1 3 # Bowel Movements 0 Physical Exam HEAD: Atraumatic. EYES: Pupils equal and round. ENT: No nasal bleeding or discharge. NECK: Trachea midline. No JVD CARDIOVASCULAR: Regular rate and rhythm. No murmur RESPIRATORY: No accessory muscle use. Clear to auscultation. Breath sounds equal bilaterally. GASTROINTESTINAL: Abdomen soft, non-tender, nondistended. MUSCULOSKELETAL: Extremities without clubbing, cyanosis, or edema. No obvious deformities. NEUROLOGICAL: Awake and alert. No obvious cranial nerve deficits. Normal speech. PSYCHIATRIC: Appropriate mood and affect; insight and judgment normal. Laboratory Laboratory Tests Test 02/26/17 06:00 Prothrombin Time 11.8 SEC Prothromb Time International 1.1 RATIO Ratio Imaging Last Impressions Chest X-Ray 02/24/17 0500 Signed Impressions: Service Date/Time: Friday, February 24, 2017 05:06 - CONCLUSION: 1. No pneumothorax. 2. Bibasilar atelectasis. Abelardo Marshall Jr., MD Lower Extremity Ultrasound 02/18/17 0000 Signed Impressions: Service Date/Time: February 17:08 - CONCLUSION: Venous mapping as delineated above. Remi Barrera MD Carotid Artery Ultrasound 02/18/17 0000 Signed Impressions: Service Date/Time: February 17:28 - CONCLUSION: No significant plaque is seen. Remi Barrera MD (Radha Sr) Assessment and Plan Problem List: (1) CAD in [place] artery (2) Cardiomyopathy (3) Left ventricular apical thrombus following myocardial infarction (4) Left ventricular systolic dysfunction Assessment and Plan CAD- s/p PCI BMS LAD (Nov 2016), with staged intervention of RCA. multivessel disease. s/p CABG x 5, post op day 3, vitals stable. Na slightly low (135) cardiomyopathy, ischemic- EF 35% with apical LV thrombus. tele reviewed, no arrhythmias. no Lifevest at this time due to risk of embolus and stroke with defibrillated. Hopefully EF to improve with revascularization. will need to resume anticoagulation on discharge. repeat echo in 3 months. (Radha Sr) Assessment and Plan will sign off call with further questions thank you (Adebayo Alvarez MD) Problem Qualifiers (1) Cardiomyopathy: Qualified Code: I25.5 - Ischemic cardiomyopathy Radha Sr February 26, 2017 08:16 Adebayo Alvarez MD February 26, 2017 08:33
--- NOTE | 2017-02-26 08:39 | PD.CAR.PN ---
CVT Progress Note Subjective/Hospital Course: 02/19 Clinically stable Awaiting ECHO Plavix Verify on Wednesday with possible CABG on Friday 02/23 SURGICAL PROCEDURE 1. Urgent Off-pump Coronary Artery Bypass Grafting x 5 with left internal mammary artery (MCMILLAN) to Diagonal 1 (D1), reverse saphenous vein graft to thel eft anterior descending (LAD), reverse saphenous vein graft to the RCA, reverse sequential saphenous vein graft to the ramus marginalis and to the OM1 2. Left Leg Endoscopic Vein [place] 3. Intraoperative Vein Mapping 02/24 Doing well Low-dose beta jesus therapy Will need Coumadin once CT are removed for LV thrombus Will need LifeVest for cardiomyopathy Transfer [facility] 02/25 D/C CT today Coumadin therapy Discharge planning 02/26 Doing well NSR this am Wean Oxygen Likely D/C home in am Objective: Vital Signs Date Time Temp Pulse Resp B/P Pulse Ox O2 Delivery O2 Flow Rate FiO2 02/26/17 06:33 79 02/26/17 05:04 83 02/26/17 04:00 78 02/26/17 03:56 Nasal Cannula 2.00 50 02/26/17 03:56 97.6 86 120/85 96 02/26/17 03:00 78 02/26/17 02:00 76 02/26/17 01:00 84 02/26/17 00:00 74 02/25/17 23:00 Nasal Cannula 2.00 50 02/25/17 23:00 80 103/72 100 02/25/17 23:00 80 02/25/17 22:00 96 02/25/17 21:37 100 Nasal Cannula 2.00 02/25/17 21:00 96 02/25/17 20:00 102 02/25/17 19:00 98.8 94 101/70 99 02/25/17 19:00 97 02/25/17 19:00 Room Air 02/25/17 18:00 104 02/25/17 17:00 104 02/25/17 16:01 97 02/25/17 15:30 95 Room Air 02/25/17 15:30 99.5 127 20 93/62 95 02/25/17 15:00 109 02/25/17 14:00 126 02/25/17 13:01 138 02/25/17 12:00 138 02/25/17 11:45 96 Room Air 02/25/17 11:45 100.2 140 18 104/78 91 02/25/17 11:00 140 02/25/17 10:00 106 02/25/17 09:00 102 02/25/17 08:45 98.3 107 18 114/76 96 02/25/17 08:45 96 Room Air Labs: Laboratory Tests Test 02/26/17 06:00 Prothrombin Time 11.8 SEC (9.8-11.6) Prothromb Time International 1.1 RATIO Ratio Result Diagram: 02/25/17 0500 02/25/17 0500 (1) CAD in [place] artery (2) Cardiomyopathy (3) Left ventricular apical thrombus following myocardial infarction (4) Left ventricular systolic dysfunction Problem Qualifiers (1) Cardiomyopathy: Qualified Code: I25.5 - Ischemic cardiomyopathy Kb Nunes MD February 26, 2017 08:39
--- NOTE | 2017-02-26 08:40 | HHI.FF ---
Face to Face Verification Diagnosis: (1) CAD in [place] artery (2) Cardiomyopathy (3) Left ventricular systolic dysfunction (4) S/P CABG x 5 (5) Left ventricular apical thrombus following myocardial infarction I have seen patient Hossein Campbell on 02/26/17. My clinical findings support the need for the requested home health care services because: Deconditioned w/ increased weakness I certify that my clinical findings support that this patient is homebound because: Post-op weakness Kb Nunes MD February 26, 2017 08:40
[2017-02-26] MEDS ORDERED: DOCU1CAP39 PO (08:43)
[2017-02-26] MEDS ORDERED: Aspirin Chew PO (08:43)
[2017-02-26] MEDS ORDERED: AMIO200T PO (08:43)
[2017-02-26] MEDS ORDERED: METO25TA3 PO (08:43)
[2017-02-26] MEDS: DOCUSATE SODIUM 100 MG CAP PO SCH ×2 (08:49→21:25)
[2017-02-26] MEDS: MULTIVITAMINS/MINERALS THERAPEUTIC TAB PO SCH (08:49)
[2017-02-26] MEDS: MAGNESIUM HYDROXIDE SUSP 30 ML CUP PO SCH (08:49)
[2017-02-26] MEDS: METOPROLOL TARTRATE 25 MG TAB PO SCH ×2 (08:50→21:25)
[2017-02-26] MEDS: ASPIRIN 81 MG CHEW TAB PO SCH (08:50)
[2017-02-26] MEDS: CLOPIDOGREL 75 MG TAB PO SCH (08:50)
[2017-02-26] MEDS: FUROSEMIDE 20 MG TAB PO SCH (08:50)
[2017-02-26] MEDS: AMIODARONE 200 MG TAB PO SCH ×2 (08:50→21:25)
[2017-02-26] MEDS: SODIUM CHLORIDE 0.9% FLUSH 10 ML FLUSH IV FLUSH SCH (08:50)
[2017-02-26] MEDS: FLUTICASONE PROPIONATE 110 MCG/ACT 12 GM INHALER INH SCH (08:51)
[2017-02-26] MEDS ORDERED: GETGO ROLLING W1 MI1 (10:03)
[2017-02-26] MEDS ORDERED: WARFARIN SOD 5 MG TAB PO SCH (16:00)
[2017-02-26] MEDS: ACETAMINOPHEN 325 MG TAB PO PRN (17:55)
[2017-02-26] MEDS: ATORVASTATIN 20 MG TAB PO SCH (21:25)
[2017-02-26] MEDS: SENNOSIDES 8.6 MG TAB PO SCH (21:26)
[2017-02-27] VITALS (13 sets, daily range): BP systolic 98–117; BP diastolic 72–82; PULSE 71–88; RESP 18; TEMP 98.1–98.4; O2SAT 96–99
[2017-02-27] MEDS: ACETAMINOPHEN 325 MG TAB PO PRN (04:10)
[2017-02-27] MEDS: INSULIN ASPART SUPPLEMENTAL SCALE SQ SCH ×2 (07:00→11:00)
[2017-02-27 07:20] LABS: HEMATOCRIT 30.9 % (39.0-51.0); MEAN CORPUSCULAR HEMOGLOBIN 29.7 PG (27.0-34.0); MEAN CORPUSCULAR HGB CONC 32.6 % (32.0-36.0); PLATELET COUNT 179 TH/MM3 (150-450); RED CELL DISTRIBUTION WIDTH 15.3 % (11.6-17.2); REVIEW FLAG FINAL; WHITE BLOOD COUNT 6.1 TH/MM3 (4.0-11.0)
[2017-02-27] MEDS: PANTOPRAZOLE SOD 40 MG DELAYED RELEASE TAB PO SCH (08:05)
[2017-02-27] MEDS: MAGNESIUM HYDROXIDE SUSP 30 ML CUP PO SCH (09:00)
[2017-02-27] MEDS: DOCUSATE SODIUM 100 MG CAP PO SCH (09:00)
[2017-02-27] MEDS: SODIUM CHLORIDE 0.9% FLUSH 10 ML FLUSH IV FLUSH SCH (09:00)
[2017-02-27] MEDS: POLYETHYLENE GLYCOL 17 GM PKG PO SCH (09:00)
[2017-02-27] MEDS: FLUTICASONE PROPIONATE 110 MCG/ACT 12 GM INHALER INH SCH (09:12)
[2017-02-27] MEDS: METOPROLOL TARTRATE 25 MG TAB PO SCH (09:13)
[2017-02-27] MEDS: CLOPIDOGREL 75 MG TAB PO SCH (09:13)
[2017-02-27] MEDS: AMIODARONE 200 MG TAB PO SCH (09:14)
[2017-02-27] MEDS: MULTIVITAMINS/MINERALS THERAPEUTIC TAB PO SCH (09:14)
[2017-02-27] MEDS: ASPIRIN 81 MG CHEW TAB PO SCH (09:15)
[2017-02-27] MEDS: FUROSEMIDE 20 MG TAB PO SCH (09:15)
[2017-02-27] MEDS ORDERED: PERC5TAB12 PO (10:57)
--- NOTE | 2017-02-27 12:15 | HHI.DS ---
Discharge Summary Admission Date February 18, 2017 at 10:23 Discharge Date: February 27, 2017 Admitting Diagnosis STEMI CAD combined systolic and diastolic HF HTN (1) CAD in [place] artery Diagnosis: Principal (2) Left ventricular apical thrombus following myocardial infarction Diagnosis: Principal (3) STEMI (ST elevation myocardial infarction) Diagnosis: Principal (4) Cardiomyopathy Diagnosis: Principal Procedures CABG x 3 Brief History 66 y/o male presented ~3 weeks ago with a STEMI involving the LAD which caused severe heart failure and cardiogenic shock. He had an IABP placed and emergent PCI to the LAD by Dr. Alvarez at the time. He remained critically ill requiring intubation/ventilation for several days and ultimately improved. He was discharged with a plan for Dr. Alvarez to treat his other lesions percutaneously. Unfortunately, this was not possible, and he was scheduled for CABG. He was also noted to have an LV apical thrombus on echo. CBC/BMP: 02/27/17 0430 02/25/17 0500 Significant Findings Laboratory Tests Test 02/25/17 02/26/17 02/27/17 05:00 06:00 04:30 Red Blood Count 3.50 MIL/MM3 3.40 MIL/MM3 (4.50-5.90) (4.50-5.90) Hemoglobin 10.4 GM/DL 10.1 GM/DL (13.0-17.0) (13.0-17.0) Hematocrit 31.4 % 30.9 % (39.0-51.0) (39.0-51.0) Neutrophils (%) (Auto) 73.2 % (16.0-70.0) Monocytes (%) (Auto) 12.2 % (0.0-8.0) Lymphocytes # (Auto) 0.9 TH/MM3 (1.0-4.8) Monocytes # (Auto) 1.0 TH/MM3 (0-0.9) Sodium Level 135 MEQ/L (136-145) Estimat Glomerular Filtration 86 ML/MIN (>89) Rate Random Glucose 117 MG/DL (74-106) Calcium Level 8.1 MG/DL (8.5-10.1) Prothrombin Time 11.8 SEC (9.8-11.6) Imaging Last Impressions Chest X-Ray 02/24/17 0500 Signed Impressions: Service Date/Time: Friday, February 24, 2017 05:06 - CONCLUSION: 1. No pneumothorax. 2. Bibasilar atelectasis. Abelardo Marshall Jr., MD Lower Extremity Ultrasound 02/18/17 0000 Signed Impressions: Service Date/Time: February 17:08 - CONCLUSION: Venous mapping as delineated above. Remi Barrera MD Carotid Artery Ultrasound 02/18/17 0000 Signed Impressions: Service Date/Time: February 17:28 - CONCLUSION: No significant plaque is seen. Remi Barrera MD PE at Discharge chest - CTA COR - RRR ABD - soft, NT, NABS wound - dry and intact Hospital Course Subjective/Hospital Course: 02/19 Clinically stable Awaiting ECHO Plavix Verify on Wednesday with possible CABG on Friday 02/23 SURGICAL PROCEDURE 1. Urgent Off-pump Coronary Artery Bypass Grafting x 5 with left internal mammary artery (MCMILLAN) to Diagonal 1 (D1), reverse saphenous vein graft to thel eft anterior descending (LAD), reverse saphenous vein graft to the RCA, reverse sequential saphenous vein graft to the ramus marginalis and to the OM1 2. Left Leg Endoscopic Vein [place] 3. Intraoperative Vein Mapping 02/24 Doing well Low-dose beta jesus therapy Will need Coumadin once CT are removed for LV thrombus Will need LifeVest for cardiomyopathy Transfer [facility] 02/25 D/C CT today Coumadin therapy Discharge planning 02/26 Doing well NSR this am Wean Oxygen Likely D/C home in am Pt Condition on Discharge: Good Discharge Disposition: Disch w/ Home Health Serv Discharge Instructions DIET: Follow Instructions for: Heart Healthy Diet Activities you can perform: Weight Bearing as [place], Shower Only-No Bath Activities to avoid: Lifting/Bending, Driving Follow up Referrals: Cardiology with Kb Nunes MD Cardiology with Adebayo Alvarez MD PCP Follow-up with Jez Charles MD PhD New Medications: Walker Rolling/GetGo (Walker Rolling/GetGo) 1 Mis Mis 1 EA .ROUTE DIRECTED #1 EA Amiodarone (Amiodarone) 200 Mg Tab 400 MG PO Q12HR z Days 14 Ref 0 TAB Docusate Sodium (Dok) 100 Mg Cap 100 MG PO BID Constipation Days 30 CAP Metoprolol Tartrate (Metoprolol Tartrate) 25 Mg Tab 25 MG PO Q12HR z Days 90 Ref 10 TAB ([Aspirin Chew]) 81 MG CHEW 81 MG PO DAILY z Days 90 Ref 10 TAB.CHEW Continued Medications: Albuterol 18 GM Inh (Ventolin Hfa 18 GM Inh) 90 Mcg/Act Aer 2 PUFF INH Q4-6H PRN SHORTNESS OF BREATH #1 Ref 0 INHALER Atorvastatin (Atorvastatin) 20 Mg Tab 20 MG PO HS Cholesterol Management #30 Ref 0 TAB Clopidogrel (Plavix) 75 Mg Tab 75 MG PO DAILY CAD #31 TAB Fexofenadine Hcl (Vicenta Allergy) 60 Mg Tab 60 MG PO DAILY TAB Fluticasone 12 GM Inh (Flovent Hfa 12 GM Inh) 110 Mcg/Act Inh 1 PUFF INH BID Asthma Management #1 Ref 0 INHALER Furosemide (Furosemide) 40 Mg Tab 40 MG PO DAILY cardiomyopathy #31 TAB Oxycodone-Acetaminophen (Percocet) 5-325 mg Tab 1-2 TAB PO Q4-6H PRN PAIN Ref 0 TAB Potassium Chloride Microencaps (Potassium Chloride Microencaps) 20 Meq Tab 20 MEQ PO DAILY CAD #31 TAB Warfarin (Warfarin) 5 Mg Tab 5 MG PO DAILY Blood Clot Prevention #30 Ref 0 TAB Radha Culp MD February 27, 2017 12:15
--- NOTE | 2017-03-01 07:27 | PD.CAR.PN ---
CVT Progress Note Subjective/Hospital Course: 02/19 Clinically stable Awaiting ECHO Plavix Verify on Wednesday with possible CABG on Friday 02/23 SURGICAL PROCEDURE 1. Urgent Off-pump Coronary Artery Bypass Grafting x 5 with left internal mammary artery (MCMILLAN) to Diagonal 1 (D1), reverse saphenous vein graft to thel eft anterior descending (LAD), reverse saphenous vein graft to the RCA, reverse sequential saphenous vein graft to the ramus marginalis and to the OM1 2. Left Leg Endoscopic Vein [place] 3. Intraoperative Vein Mapping 02/24 Doing well Low-dose beta jesus therapy Will need Coumadin once CT are removed for LV thrombus Will need LifeVest for cardiomyopathy Transfer [facility] 02/25 D/C CT today Coumadin therapy Discharge planning 02/26 Doing well NSR this am Wean Oxygen Likely D/C home in am 03/01 LUIS/ARB not started postoperatively due to low BP at baseline and post- operatively. 96/59 Result Diagram: 02/27/17 0430 02/25/17 0500 (1) CAD in [place] artery (2) Cardiomyopathy (3) Left ventricular apical thrombus following myocardial infarction (4) Left ventricular systolic dysfunction Problem Qualifiers (1) Cardiomyopathy: Qualified Code: I25.5 - Ischemic cardiomyopathy Kb Nunes MD March 01, 2017 07:27
--- NOTE | 2017-03-04 09:13 | RSPPFT ---
DATE OF PROCEDURE: 02/19/17 COMMENTS: Spirometry with FVC of 2.0, FEV1 of 1.3, FEV1/FVC ratio at 64%. A non-significant response to inhaled bronchodilator noted. IMPRESSION: 1. Moderately severe airways obstruction. 2. Non-significant response to inhaled bronchodilator.
== END 2017-02-27 13:55 | disposition home health service (06) | DRG 233 ==
LOC: HDOC 06:17 → HDIC 06:17 → HDOC 10:22 → HCVR 10:23 → HCIN 02-19 16:58 → HCIS 02-23 09:13 → HCVR 02-23 14:00 → HCIN 02-24 11:41
PROVIDERS: ADMIT Thoracic Surgery (Cardiothoracic Vascular Surgery); ATTEND Thoracic Surgery (Cardiothoracic Vascular Surgery)
PROC: B2111ZZ Fluoroscopy of Multiple Coronary Arteries using Low Osmolar Contrast (ICD-10-PCS; 2017-02-18)
PROC: 5A2204Z Restoration of Cardiac Rhythm, Single (ICD-10-PCS; 2017-02-18)
PROC: 02100Z9 Bypass Coronary Artery, One Artery from Left Internal Mammary, Open Approach (ICD-10-PCS; 2017-02-23)
PROC: 06BQ4ZZ Excision of Left Saphenous Vein, Percutaneous Endoscopic Approach (ICD-10-PCS; 2017-02-23)
PROC: B246ZZ4 Ultrasonography of Right and Left Heart, Transesophageal (ICD-10-PCS; 2017-02-23)
PROC: 021309W Bypass Coronary Artery, Four or More Arteries from Aorta with Autologous Venous Tissue, Open Approach (ICD-10-PCS; principal; 2017-02-23 08:08)
DX: I23.6 Thrombosis of atrium, auricular appendage, and ventricle as current complications following acute myocardial infarction (principal); I21.3 ST elevation (STEMI) myocardial infarction of unspecified site; J96.00 Acute respiratory failure, unspecified whether with hypoxia or hypercapnia; I50.42 Chronic combined systolic (congestive) and diastolic (congestive) heart failure; I11.0 Hypertensive heart disease with heart failure; I49.01 Ventricular fibrillation; T82.855A Stenosis of coronary artery stent, initial encounter; I25.10 Atherosclerotic heart disease of native coronary artery without angina pectoris; I25.5 Ischemic cardiomyopathy; I25.2 Old myocardial infarction; Y83.1 Surgical operation with implant of artificial internal device as the cause of abnormal reaction of the patient, or of later complication, without mention of misadventure at the time of the procedure; Z79.01 Long term (current) use of anticoagulants; Z86.74 Personal history of sudden cardiac arrest; Z87.891 Personal history of nicotine dependence; Z91.041 Radiographic dye allergy status
CPT/HCPCS: 71010; 76937; 80048; 81001; 82948; 83735; 85014; 85025; 85027; 85576; 85610; 85730; 86850; 86900; 86901; 86920; 87641; 93005; 93306; 93318; 93454; 93880; 93970; 93998; 94002; 94010; 94150; 94640; 94664; 94667; 94668; C1768; C1769; C1887; C1893; C9399; J0131; J0171; J0282; J0690; J1200; J1644; J1815; J1885; J1940; J2250; J2440; J2720; J2930; J3010; J3370; J3475; J3480; J7060; J7120; P9045; Q9967

== ENCOUNTER 2017-07-08 15:43 | Inpatient (IN) | payer OTHER ==
[~2017-07-08] VITALS: Ht 185.4 cm; Wt 98.3 kg
[~2017-07-08 15:43] MED LIST changes: -ALBU0.086 NEB; -ALBU8I INH; -AMINOCAPROIC ACID INJ 250 MG/ML 20 ML VIAL IV ONE; +AMIO200T PO; +ATOR20TA15 PO; +Aspirin Chew PO; -CALCIUM CHLORIDE 10% SOLN 1 GRAM/10 ML SYR IV ONE; -CEPH-460 PO; -DEXMEDETOMIDINE INJ 50 ML IV ONE; +ENOX100I SQ; -EPINEPHrine HCL (1:1000) 1 MG/ML VIAL IV ONE; -FERR325T PO; +FLUTI110I INH; +GETGO ROLLING W1 MI1; -HEPARIN SODIUM - SQ 10,000 UNITS/ML VIAL SQ ONE; -HYDR-3516 PO; -IPRA0.02 NEB; -LISI2.5T3 PO; -LORA10TA PO; -MAGNESIUM SULFATE 1000 MG/2 ML VIAL (PED) IV ONE; +METO25TA3 PO; -NITROGLYCERIN-DEXTROSE INJ 250 ML IV ONE; +PERC5TAB12 PO; -PROTAMINE SULFATE 250 MG/25 ML VIAL IV ONE; -VECURONIUM BROMIDE 10 MG VIAL IV ONE; +VENTAER INH; +WARF-23 PO; -ceFAZolin INJ 1,000 MG VIAL IV ONE
--- NOTE | 2017-07-08 17:52 | HHI.HP ---
HPI Service [facility] Hospitalists Primary Care Physician Jez Charles MD, PhD Admission Diagnosis Chief Complaint: sob, edema Travel History International Travel<30 Days: No Contact w/Intl Traveler <30 Da: No Traveled to Known Affected Are: No History of Present Illness Pt is 66 yo male with cad, cabg x 5, afib, LV thrombus who has had progressive lower ext edema over past month. has developed worsening sob with exertion and orthopnea. His bp has been low with systolics in 90s and afib to 130s. His prescriptionist added amiodarone and digoxin 2 days prior to admission but w/out benefit. He was directly admitted for control of afib and acute systolic chf. Review of Systems Other sob edema Past Family Social History Past Medical History cad. stemi 11/2016. salvage pci with bms in lad. cardiac arrest. iabp. s/p cabg x 5 03/03 echo 05/03. ef 30-35.LV thrombus ischemic cardiomyopathy htn hyperlipidemia aflutter cataracts Reported Medications lasix 40mg bid kcl 20meq bid allopurinol 100mg daily amiodarone 400mg daily x 2 days digoxin 250mcg daily x 2days asa 81mg daily atorvastatin 20mg daily plavix 75mg daily iron flovent 110mcg bid metolazone 5mg daily ventolin prn coumadin 5mg t//. 7.5mg other days Allergies: Coded Allergies: diatrizoate meglumine (Verified Allergy, Severe, 07/10/17) gadobenic acid (Verified Allergy, Severe, 07/10/17) gadodiamide (Verified Allergy, Severe, 07/10/17) gadoteridol (Verified Allergy, Severe, 07/10/17) iodixanol (Verified Allergy, Severe, 07/10/17) iohexol (Verified Allergy, Severe, 07/10/17) Uncoded Allergies: DIFFICULT AIRWAY (Adverse Reaction, Severe, Cardiac Arrest, 11/30/16) DIFFICULT AIRWAY Family History nc Social History no etoh/tob Physical Exam Vital Signs sitting on edge of bed talking in sentences oriented heart irreg/tachy lung good air entry. no crackles abd full, bs ext edema from feet to thighs bilaterally Caprini VTE Risk Assessment Caprini VTE Risk Assessment: Mod/High Risk (score >= 2) Caprini Risk Assessment Model Point Value = 1 Point Value = 2 Point Value = 3 Point Value = 5 Age 41-60 Minor surgery BMI > 25 kg/m2 Swollen legs Varicose veins or History of unexplained or recurrent spontaneous Oral contraceptives or hormone replacement Sepsis (< 1 month) Serious lung disease, including pneumonia (< 1 month) Abnormal pulmonary function Acute myocardial infarction Congestive heart failure (< 1 month) History of inflammatory bowel disease Medical patient at bed rest Age 61-74 Arthroscopic surgery Major open surgery (> 45 min) Laparoscopic surgery (> 45 min) Malignancy Confined to bed (> 72 hours) Immobilizing plaster cast Central venous access Age >= 75 History of VTE Family history of VTE Factor V Leiden Prothrombin [id number] Lupus anticoagulant Anticardiolipin antibodies Elevated serum homocysteine Heparin-induced thrombocytopenia Other congenital or acquired thrombophilia Stroke (< 1 month) Elective arthroplasty Hip, pelvis, or leg fracture Acute spinal cord injury (< 1 month) Prophylaxis Regimen Total Risk Factor Score Risk Level Prophylaxis Regimen 0-1 Low Early ambulation 2 Moderate Order ONE of the following: *Sequential Compression Device (SCD) *Heparin 5000 units SQ BID 3-4 Higher Order ONE of the following medications: *Heparin 5000 units SQ TID *Enoxaparin/Lovenox 40 mg SQ daily (WT < 150 kg, CrCl > 30 mL/min) *Enoxaparin/Lovenox 30 mg SQ daily (WT < 150 kg, CrCl > 10-29 mL/min) *Enoxaparin/Lovenox 30 mg SQ BID (WT < 150 kg, CrCl > 30 mL/min) AND/OR *Sequential Compression Device (SCD) 5 or more Highest Order ONE of the following medications: *Heparin 5000 units SQ TID (Preferred with Epidurals) *Enoxaparin/Lovenox 40 mg SQ daily (WT < 150 kg, CrCl > 30 mL/min) *Enoxaparin/Lovenox 30 mg SQ daily (WT < 150 kg, CrCl > 10-29 mL/min) *Enoxaparin/Lovenox 30 mg SQ BID (WT < 150 kg, CrCl > 30 mL/min) AND *Sequential Compression Device (SCD) Assessment and Plan Problem List: (1) Rapid atrial fibrillation ICD Codes: I48.91 - Unspecified atrial fibrillation Status: Acute Plan: 1. cad. s/p cabg x 5 2. afib with rvr. 3. systolic chf with exacerbation. EF 30-35% 4. mild veronica 5. 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 discussed with cardiology. amiodarone gtt probably try iv dig...given low bp Dr Alvarez to discuss options of rate control with Dr Mata...?ablation. unable to due cardioversion due to LV thrombus cont anticoagulation. monitor bmp (2) Cardiomyopathy ICD Codes: I42.9 - Cardiomyopathy, unspecified Status: Acute (3) Left ventricular apical thrombus following myocardial infarction ICD Codes: I21.29 - ST elevation (STEMI) myocardial infarction involving other sites; I23.6 - Thrombosis of atrium, auricular appendage, and ventricle as current complications following acute myocardial infarction Status: Chronic (4) CAD in [place] artery ICD Codes: I25.10 - Atherosclerotic heart disease of [place] coronary artery without angina pectoris Status: Chronic (5) S/P CABG x 5 ICD Codes: Z95.1 - Presence of aortocoronary bypass graft Status: Chronic Physician Certification 2 Midnight Certification Type: Admission for Inpatient Services Order for Inpatient Services 3The services are ordered in accordance with Medicare regulations or non- Medicare payer requirements, as applicable. In the case of services not specified as inpatient-only, they are appropriately provided as inpatient services in accordance with the 2-midnight benchmark. Estimated LOS (days): 3 3 days is the estimated time the patient will need to remain in the hospital, assuming treatment plan goals are met and no additional complications. Post-Hospital Plan: Home David Tracy MD Jul 08, 2017 17:52
[2017-07-08] MEDS ORDERED: AMIODARONE INJ 150 MG in DEXTROSE 5% IN WATER 100ML INJ 100 ML IV ONE ×2 (18:07)
--- NOTE | 2017-07-08 18:51 | RADRPT ---
EXAM DATE/TIME: 07/08/2017 18:32 [place] COMPARISON: CHEST SINGLE AP, February 24, 2017, 5:06. INDICATIONS : Chest discomfort; palpitations and CHF. MEDICAL HISTORY : Myocardial infarction. Asthma SURGICAL HISTORY : CABG. Intra-aortic balloon pump. ENCOUNTER: Initial ACUITY: 1 day PAIN SCORE: 0/10 LOCATION: Bilateral chest FINDINGS: Elevated left hemidiaphragm again noted. There is mild left base atelectasis. Lungs are otherwise indira ar. No evidence of failure. Mild cardiomegaly is stable. Patient has had previous median sternotomy. CONCLUSION: 1. No evidence of failure or pneumonia. 2. Mild compensated cardiomegaly. 3. Mild left base atelectasis. Elevated left hemidiaphragm again seen. Remi Beebe MD on July 08, 2017 at 18:48 Board Certified Radiologist. This report was verified electronically.
[2017-07-08 19:00] VITALS: PULSE 132
[2017-07-08 20:00] VITALS: BP 101/85; PULSE 132; PULSE 135; RESP 16; TEMP 97.5; O2SAT 99
[2017-07-08 21:00] VITALS: PULSE 128
[2017-07-08 21:29] LABS: BASOPHIL # 0.2 TH/MM3 (0-0.2); BASOPHIL % 3.9 % (0.0-2.0); EOSINOPHIL # 0.1 TH/MM3 (0-0.4); EOSINOPHIL % 1.3 % (0.0-4.0); HEMATOCRIT 34.5 % (39.0-51.0); HEMO FLAGS DIFF FINAL; LYMPH % 23.9 % (9.0-44.0); LYMPHOCYTE # 1.1 TH/MM3 (1.0-4.8); MEAN CELL VOLUME 81.5 FL (80.0-100.0); MEAN CORPUSCULAR HEMOGLOBIN 25.9 PG (27.0-34.0); MEAN CORPUSCULAR HGB CONC 31.9 % (32.0-36.0); MONO % 7.3 % (0.0-8.0); NEUT % 63.6 % (16.0-70.0); PLATELET COUNT 276 TH/MM3 (150-450); RED BLOOD COUNT 4.23 MIL/MM3 (4.50-5.90); RED CELL DISTRIBUTION WIDTH 18.7 % (11.6-17.2); WHITE BLOOD COUNT 4.7 TH/MM3 (4.0-11.0)
[2017-07-08 21:38] LABS: INTERNATIONAL NORMALIZED RATIO 1.3 RATIO; PROTHROMBIN TIME - PATIENT 14.6 SEC (9.8-11.6)
[2017-07-08 21:45] LABS: BICARBONATE 28.1 MEQ/L (21.0-32.0); POTASSIUM 3.4 MEQ/L (3.5-5.1)
[2017-07-08 22:00] VITALS: PULSE 124
[2017-07-08 22:00] LABS: DIGOXIN 0.2 NG/ML (0.8-2.0)
[2017-07-08 23:00] VITALS: PULSE 124
[2017-07-08] MEDS: FLUTICASONE PROPIONATE 110 MCG/ACT 12 GM INHALER INH SCH (23:30)
[2017-07-08] MEDS: ALBUTEROL SULFATE 2 MG TAB PO SCH (23:31)
[2017-07-08] MEDS: FUROSEMIDE 40 MG/4 ML VIAL IV PUSH SCH (23:32)
[2017-07-08] MEDS: AMIODARONE INJ 450 MG in DEXTROSE 5% IN WATE(EXCEL) INJ 241 ML IV SCH ×2 (23:32)
[2017-07-08] MEDS: POTASSIUM CHLORIDE 20 MEQ CONTROLLED RELEASE TAB PO SCH (23:33)
[2017-07-09] VITALS (24 sets, daily range): BP systolic 102–120; BP diastolic 64–91; PULSE 84–132; RESP 16–20; TEMP 97.4–98.1; O2SAT 92–100
[2017-07-09 07:21] LABS: INTERNATIONAL NORMALIZED RATIO 1.4 RATIO; PROTHROMBIN TIME - PATIENT 15.4 SEC (9.8-11.6)
[2017-07-09 07:46] LABS: BICARBONATE 26.5 MEQ/L (21.0-32.0); POTASSIUM 3.8 MEQ/L (3.5-5.1)
--- NOTE | 2017-07-09 07:55 | PD.CARD.PN ---
Subjective Subjective Remarks still SOB still afib RVR Objective Medications Active Medications Albuterol Sulfate (Proventil) 2 mg Q6HR PO Last administered on 07/08/17 23:31 ; Admin Dose 2 MG; Start 07/08/17 at 18:00 Allopurinol (Zyloprim) 100 mg DAILY PO; Start 07/09/17 at 09:00 Amiodarone HCl (Cordarone) 400 mg DAILY PO; Start 07/09/17 at 09:00; Stop at 09:00; Status DC Amiodarone HCl 150 mg/Dextrose 103 ml @ 600 mls/hr Q11M ONCE IV Last administered on 07/08/17 23:30; Admin Dose 600 MLS/HR; Start 07/08/17 at 18:07 ; Stop 07/08/17 at 19:36; Status DC Amiodarone HCl 450 mg/Dextrose 250 ml @ 33.33 mls/ hr Q7H31M IV Last administered on 07/08/17 23:32; Admin Dose 33.33 MLS/HR; Start 07/08/17 at 18: 17 Aspirin (Aspirin Chew) 81 mg DAILY CHEW; Start 07/09/17 at 09:00 Atorvastatin Calcium (Lipitor) 20 mg DAILY PO; Start 07/09/17 at 09:00 Clopidogrel Bisulfate (Plavix) 75 mg DAILY PO; Start 07/09/17 at 09:00 Digoxin (Lanoxin) 0.25 mg DAILY PO; Start 07/09/17 at 09:00 Fluticasone Propionate (Flovent Hfa 110 Mcg Inh) 1 puff BID INH Last administered on 07/08/17 23:30; Admin Dose 1 PUFF; Start 07/08/17 at 21:00 Furosemide (Lasix Inj) 40 mg BID@,18 IV PUSH Last administered on 07/08/17 23 :32; Admin Dose 40 MG; Start 07/08/17 at 19:40 Influenza Virus Vaccine (Flu (Quadrivalent) Vaccine Inj) 0.5 ml ONCE ONCE IM; Start 07/09/17 at 10:00; Stop 07/09/17 at 10:01 Metolazone (Zaroxolyn) 5 mg DAILY PO; Start 07/09/17 at 09:00 Patient Medication Teaching (Coumadin Booklet) 1 ONCE ONCE OTHER Last administered on 07/08/17 23:33; Admin Dose 1; Start 07/08/17 at 19:45; Stop at 19:47; Status DC Pneumococcal Polyvalent Vaccine (Pneumovax-23 Inj) 25 mcg ONCE ONCE IM; Start at 10:00; Stop 07/09/17 at 10:01 Potassium Chloride (KCl) 20 meq Q12HR PO Last administered on 07/08/17 23:33; Admin Dose 20 MEQ; Start 07/08/17 at 21:00 Warfarin Sodium (Coumadin) 5 mg MoWeFr@16 PO; Start 07/09/17 at 16:00 Warfarin Sodium (Coumadin) 7.5 mg SuTuThSa@16 PO; Start 07/10/17 at 16:00 Vital Signs / I&O Vital Signs Date Time Temp Pulse Resp B/P (MAP) Pulse Ox O2 Delivery O2 Flow Rate FiO2 07/09/17 05:00 128 07/09/17 04:00 128 07/09/17 03:00 108 07/09/17 02:00 128 07/09/17 01:00 128 07/09/17 00:00 132 07/09/17 00:00 97.5 128 16 112/91 (98) 100 07/08/17 23:32 134 112/91 07/08/17 23:30 134 112/91 07/08/17 23:00 124 07/08/17 22:00 124 07/08/17 21:00 128 07/08/17 20:00 97.5 135 16 101/85 (90) 99 07/08/17 20:00 132 07/08/17 19:00 132 Physical Exam HEAD: Normocephalic. EYES: No scleral icterus. No injection or drainage. NECK: Supple, trachea midline. No JVD or lymphadenopathy. CARDIOVASCULAR: afib RVR. RESPIRATORY: crackles GASTROINTESTINAL: Abdomen soft, non-tender, nondistended. Laboratory Laboratory Tests Test 07/08/17 21:10 07/09/17 06:53 White Blood Count 4.7 TH/MM3 Red Blood Count 4.23 MIL/MM3 Hemoglobin 11.0 GM/DL Hematocrit 34.5 % Mean Corpuscular Volume 81.5 FL Mean Corpuscular Hemoglobin 25.9 PG Mean Corpuscular Hemoglobin Concent 31.9 % Red Cell Distribution Width 18.7 % Platelet Count 276 TH/MM3 Mean Platelet Volume 8.1 FL Neutrophils (%) (Auto) 63.6 % Lymphocytes (%) (Auto) 23.9 % Monocytes (%) (Auto) 7.3 % Eosinophils (%) (Auto) 1.3 % Basophils (%) (Auto) 3.9 % Neutrophils # (Auto) 3.0 TH/MM3 Lymphocytes # (Auto) 1.1 TH/MM3 Monocytes # (Auto) 0.3 TH/MM3 Eosinophils # (Auto) 0.1 TH/MM3 Basophils # (Auto) 0.2 TH/MM3 CBC Comment DIFF FINAL Differential Comment Prothrombin Time 14.6 SEC 15.4 SEC Prothromb Time International Ratio 1.3 RATIO 1.4 RATIO Blood Urea Nitrogen 28 MG/DL 27 MG/DL Creatinine 1.37 MG/DL 1.53 MG/DL Random Glucose 147 MG/DL 117 MG/DL Calcium Level 8.6 MG/DL 8.7 MG/DL Phosphorus Level 2.8 MG/DL Magnesium Level 2.0 MG/DL Sodium Level 134 MEQ/L 132 MEQ/L Potassium Level 3.4 MEQ/L 3.8 MEQ/L Chloride Level 97 MEQ/L 95 MEQ/L Carbon Dioxide Level 28.1 MEQ/L 26.5 MEQ/L Anion Gap 9 MEQ/L 11 MEQ/L Estimat Glomerular Filtration Rate 63 ML/MIN 55 ML/MIN Digoxin Level 0.2 NG/ML Imaging Last Impressions Chest X-Ray 07/08/17 0000 Signed Impressions: Service Date/Time: June 18:32 - CONCLUSION: 1. No evidence of failure or pneumonia. 2. Mild compensated cardiomegaly. 3. Mild left base atelectasis. Elevated left hemidiaphragm again seen. Remi Beebe MD Assessment and Plan Assessment and Plan aflutter 2:1 on amio gtt and still tachycardiac. Dig level 0.2. IV dig. follow level given Cr. difficult to add cardizem due to hypotension. will consult dr. franz ep. ? aflutter ablation vs AVN ablation. I don't think he is a candidate for defibrillator given his chronic apical LV thrombus and risk for cardioembolism with defibrillation, but will ask dr. franz's opinion. we can get another echo to evaluate again. CHF - cont IV lasix. follow I/O. unable to tolerate ACEi due to SBP and Cr. Adebayo Alvarez MD Jul 09, 2017 07:55
--- NOTE | 2017-07-09 08:32 | HHI.PR ---
Subjective Remarks doing about the same Objective Vitals heart irreg lung cta abd s/nt ext edema to thighs Vital Signs Date Time Temp Pulse Resp B/P (MAP) Pulse Ox O2 Delivery O2 Flow Rate FiO2 07/09/17 05:00 128 07/09/17 04:00 128 07/09/17 03:00 108 07/09/17 02:00 128 07/09/17 01:00 128 07/09/17 00:00 132 07/09/17 00:00 97.5 128 16 112/91 (98) 100 07/08/17 23:32 134 112/91 07/08/17 23:30 134 112/91 07/08/17 23:00 124 07/08/17 22:00 124 07/08/17 21:00 128 07/08/17 20:00 97.5 135 16 101/85 (90) 99 07/08/17 20:00 132 07/08/17 19:00 132 Result Diagram: 07/08/17 2110 07/09/17 0653 A/P Problem List: (1) Rapid atrial fibrillation ICD Codes: I48.91 - Unspecified atrial fibrillation Status: Acute Plan: 1. cad. s/p cabg x 5 2. afib with rvr. 3. systolic chf with exacerbation. EF 30-35% 4. mild veronica 5. 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 discussed with cardiology. amiodarone gtt probably try iv dig...given low bp Dr Alvarez to discuss options of rate control with Dr Mata...?ablation. unable to due cardioversion due to LV thrombus cont anticoagulation. f/u echo. monitor bmp (2) Cardiomyopathy ICD Codes: I42.9 - Cardiomyopathy, unspecified Status: Acute (3) Left ventricular apical thrombus following myocardial infarction ICD Codes: I21.29 - ST elevation (STEMI) myocardial infarction involving other sites; I23.6 - Thrombosis of atrium, auricular appendage, and ventricle as current complications following acute myocardial infarction Status: Chronic (4) S/P CABG x 5 ICD Codes: Z95.1 - Presence of aortocoronary bypass graft Status: Chronic David Tracy MD Jul 09, 2017 08:32
[2017-07-09] MEDS: ATORVASTATIN 20 MG TAB PO SCH (08:35)
[2017-07-09] MEDS: ASPIRIN 81 MG CHEW TAB CHEW SCH (08:35)
[2017-07-09] MEDS: FUROSEMIDE 40 MG/4 ML VIAL IV PUSH SCH ×2 (08:35→18:03)
[2017-07-09] MEDS: POTASSIUM CHLORIDE 20 MEQ CONTROLLED RELEASE TAB PO SCH ×2 (08:36→22:12)
[2017-07-09] MEDS: CLOPIDOGREL 75 MG TAB PO SCH (08:36)
[2017-07-09] MEDS: METOLAZONE 5 MG TAB PO SCH (08:36)
[2017-07-09] MEDS: ALBUTEROL SULFATE 2 MG TAB PO SCH ×4 (08:37→22:19)
[2017-07-09] MEDS: DIGOXIN 0.25 MG TAB PO SCH (08:37)
[2017-07-09] MEDS: ALLOPURINOL 100 MG TAB PO SCH (08:37)
[2017-07-09] MEDS ORDERED: AMIODARONE 200 MG TAB PO SCH (09:00)
[2017-07-09] MEDS ORDERED: PNEUMOCOCCAL POLYVALENT INJ 25 MCG/0.5 ML SYR IM ONE (10:00)
[2017-07-09] MEDS ORDERED: INFLUENZA VIRUS VACCINE (QUADRIVALENT) 0.5 ML SYR IM ONE (10:00)
[2017-07-09] MEDS: FLUTICASONE PROPIONATE 110 MCG/ACT 12 GM INHALER INH SCH ×2 (10:10→21:00)
[2017-07-09] MEDS: ALBUMIN HUMAN 25% 25 GM/100 ML BAGP IV SCH ×2 (10:11→18:04)
[2017-07-09] MEDS: AMIODARONE INJ 450 MG in DEXTROSE 5% IN WATE(EXCEL) INJ 241 ML IV SCH ×6 (10:16→16:49)
--- NOTE | 2017-07-09 14:59 | ECHRPT ---
Indication: cardiomyopathy CONCLUSIONS The left ventricular systolic function is severely reduced with an estimated ejection fraction less than 20%. Mildly dilated left ventricle. Wall thickness is normal. There is global left ventricular dysfunction. There is a left ventricular apical thrombus noted. The right ventricle is moderately dilated. The left atrial size is moderately dilated. The right atrial size is moderately dilated. Normal atrial septal thickness. The interatrial septum bowed from left to right, consistent with increased left atrial pressure. Mild thickening of the mitral valve leaflets. [id number] mitral valve regurgitation. Mitral annular calcification is present. Ctwu-xt-sznrhnmi aortic valve regurgitation. Mild thickening of the tricuspid valve leaflets. There is moderate to severe tricuspid valve regurgitation. The estimated pulmonary arterial pressure is 57.6 mmHg. Mild pulmonary valve regurgitation. The inferior vena cava was not well visualized. The inferior vena cava is dilated. BP: 112 / 91 HR: 128 Rhythm: Atrial fibrillation MEASUREMENTS (Male / Female) Normal Values Technical Quality:Good 2D ECHO LV Diastolic Diameter PLAX 5.0 cm 4.2 - 5.9 / 3.9 - 5.3 cm LV Systolic Diameter PLAX 4.3 cm IVS Diastolic Thickness 1.0 cm 0.6 - 1.0 / 0.6 - 0.9 cm LVPW Diastolic Thickness 1.0 cm 0.6 - 1.0 / 0.6 - 0.9 cm LV Relative Wall Thickness 0.4 RV Internal Dim ED PLAX 4.1 cm LVOT Diameter 2.0 cm LA Systolic Diameter LX 4.7 cm 3.0 - 4.0 / 2.7 - 3.8 cm LV Ejection Fraction MOD 4C 25.3 % LV Cardiac Index MOD 4C 2847.4 cm/minm LV Ejection Fraction 4C AL 27.0 % LV Cardiac Index 4C AL 3147.2 cm/minm M-MODE Aortic Root Diameter MM 3.3 cm LA Systolic Diameter MM 4.2 cm LA Ao Ratio MM 1.3 AV Cusp Separation MM 2.0 cm DOPPLER AV Peak Velocity 78.7 cm/s AV Peak Gradient 2.5 mmHg AI Peak Velocity 384.0 cm/s AI Peak Gradient 59.0 mmHg AI Pressure Half Time 428.0 ms LVOT Peak Velocity 73.5 cm/s LVOT Peak Gradient 2.2 mmHg AV Area Cont Eq pk 2.9 cm MV Area PHT 8.8 cm LV E' Lateral Velocity 6.8 cm/s LV E' Septal Velocity 5.2 cm/s TR Peak Velocity 345.0 cm/s TR Peak Gradient 47.6 mmHg Right Atrial Pressure 10.0 mmHg Pulmonary Artery Systolic Pressu 57.6 mmHg Right Ventricular Systolic Press 57.6 mmHg PV Peak Velocity 80.1 cm/s PV Peak Gradient 2.6 mmHg FINDINGS LEFT VENTRICLE The left ventricular systolic function is severely reduced with an estimated ejection fraction less than 20%. Mildly dilated left ventricle. Wall thickness is normal. There is global left ventricular dysfunction. There is a left ventricular apical thrombus noted. RIGHT VENTRICLE The right ventricle is moderately dilated. LEFT ATRIUM The left atrial size is moderately dilated. RIGHT ATRIUM The right atrial size is moderately dilated. ATRIAL SEPTUM Normal atrial septal thickness. The interatrial septum bowed from left to right, consistent with increased left atrial pressure. AORTA The aortic root and proximal ascending aorta are normal in size on limited imaging. MITRAL VALVE Mild thickening of the mitral valve leaflets. Xqef-ct-cxxfoxsy mitral valve regurgitation. Mitral annular calcification is present. AORTIC VALVE Trileaflet aortic valve. Crxa-nm-eyddfimz aortic valve regurgitation. TRICUSPID VALVE Mild thickening of the tricuspid valve leaflets. There is moderate to severe tricuspid valve regurgitation. The estimated pulmonary arterial pressure is 57.6 mmHg. PULMONARY VALVE Mild pulmonary valve regurgitation. VESSELS The inferior vena cava was not well visualized. The inferior vena cava is dilated. PERICARDIUM No pericardial effusion. Adebayo Alvarez MD, FACC (Electronically Signed) Final Date:09 July 2017 14:58
[2017-07-09] MEDS ORDERED: WARFARIN SOD 5 MG TAB PO SCH (16:00)
[2017-07-10] VITALS (21 sets, daily range): BP systolic 101–122; BP diastolic 74–88; PULSE 88–110; RESP 20; TEMP 97.3–98.7; O2SAT 98–100
[2017-07-10 05:57] LABS: INTERNATIONAL NORMALIZED RATIO 1.3 RATIO
[2017-07-10] MEDS: ALBUTEROL SULFATE 2 MG TAB PO SCH ×4 (06:00→23:08)
[2017-07-10 06:15] LABS: TOTAL BILIRUBIN ADULT 2.1 MG/DL (0.2-1.0)
[2017-07-10 06:23] LABS: BICARBONATE 24.1 MEQ/L (21.0-32.0)
[2017-07-10 06:29] LABS: POTASSIUM 3.9 MEQ/L (3.5-5.1)
[2017-07-10] MEDS: AMIODARONE INJ 450 MG in DEXTROSE 5% IN WATE(EXCEL) INJ 241 ML IV SCH ×2 (08:21)
[2017-07-10] MEDS: POTASSIUM CHLORIDE 20 MEQ CONTROLLED RELEASE TAB PO SCH ×2 (09:00→23:06)
[2017-07-10] MEDS: DIGOXIN 0.25 MG TAB PO SCH (09:00)
[2017-07-10] MEDS: ALBUMIN HUMAN 25% 25 GM/100 ML BAGP IV SCH ×2 (09:00→17:36)
[2017-07-10] MEDS: ALLOPURINOL 100 MG TAB PO SCH (09:00)
[2017-07-10] MEDS: FLUTICASONE PROPIONATE 110 MCG/ACT 12 GM INHALER INH SCH ×2 (09:00→23:06)
[2017-07-10] MEDS: ASPIRIN 81 MG CHEW TAB CHEW SCH (09:00)
[2017-07-10] MEDS: METOLAZONE 5 MG TAB PO SCH (09:00)
--- NOTE | 2017-07-10 09:06 | HHI.PR ---
Subjective Remarks legs and abdomen swelling essentially back to previous baseline..although still with some swelling. alot of urination yesterday feels well overall. Objective Vitals heart irreg lung cta abd s/nt ext edema thighs/legs..improved Vital Signs Date Time Temp Pulse Resp B/P (MAP) Pulse Ox O2 Delivery O2 Flow Rate FiO2 07/10/17 08:21 92 112/79 07/10/17 07:00 100 Room Air 07/10/17 07:00 97.8 98 20 107/74 (85) 100 07/10/17 07:00 91 07/10/17 02:50 101 07/10/17 02:00 96 07/10/17 01:00 92 07/10/17 00:00 100 07/09/17 23:53 98.1 93 18 120/80 (93) 94 07/09/17 23:00 92 07/09/17 22:00 84 07/09/17 21:00 92 07/09/17 20:00 100 Nasal Cannula 2.00 07/09/17 20:00 92 07/09/17 20:00 97.4 92 18 105/69 (81) 92 07/09/17 19:19 92 105/69 07/09/17 19:00 94 07/09/17 19:00 93 07/09/17 18:00 94 07/09/17 17:00 94 07/09/17 16:49 92 112/79 07/09/17 16:00 93 07/09/17 15:00 92 19 112/79 (90) 98 07/09/17 15:00 95 07/09/17 14:00 100 07/09/17 13:00 93 07/09/17 12:00 114 07/09/17 11:00 102 07/09/17 11:00 104 19 111/82 (92) 100 07/09/17 10:19 103 102/64 07/09/17 10:00 92 07/10/17 07/10/17 07/11/17 15:00 23:00 07:00 Intake Total 240 ml Output Total 775 ml Balance -535 ml Intake Oral 240 ml Output Urine Total 775 ml # Bowel Movements 0 Result Diagram: 07/08/17 2110 07/10/17 0420 A/P Problem List: (1) Rapid atrial fibrillation ICD Codes: I48.91 - Unspecified atrial fibrillation Status: Acute Plan: 1. cad. s/p cabg x 5 2. afib with rvr. improved control 3. systolic chf with exacerbation. EF 30-35% new echo 07/09. EF 20percent, apical thrombus 4. mild veronica 5. 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 discussed with cardiology. amiodarone gtt...stop and convert to po probably try iv dig...given low bp if rate increases after stopping iv amio Dr Alvarez to discuss options of rate control with Dr Mata...?ablation. unable to due cardioversion due to LV thrombus cont anticoagulation.increase. monitor bmp closely. lower iv lasix and convert to po in AM as his bun/cr are rising. cont albumen. (2) Cardiomyopathy ICD Codes: I42.9 - Cardiomyopathy, unspecified Status: Acute (3) Left ventricular apical thrombus following myocardial infarction ICD Codes: I21.29 - ST elevation (STEMI) myocardial infarction involving other sites; I23.6 - Thrombosis of atrium, auricular appendage, and ventricle as current complications following acute myocardial infarction Status: Chronic (4) CAD in [place] artery ICD Codes: I25.10 - Atherosclerotic heart disease of [place] coronary artery without angina pectoris Status: Chronic (5) S/P CABG x 5 ICD Codes: Z95.1 - Presence of aortocoronary bypass graft Status: Chronic David Tracy MD Jul 10, 2017 09:06
--- NOTE | 2017-07-10 09:19 | PD.CARD.PN ---
Subjective Subjective Remarks Pt feels well, improved heart rates, improved edema Objective Medications Administered Medications Medications (Trade) Dose Ordered Sig/Syed Route PRN Reason Start Time Stop Time Status Last Admin Dose Admin Aspirin (Aspirin Chew) 81 mg DAILY CHEW 07/09/17 09:00 07/09/17 08:35 Atorvastatin Calcium (Lipitor) 20 mg DAILY PO 07/09/17 09:00 07/09/17 08:35 Clopidogrel Bisulfate (Plavix) 75 mg DAILY PO 07/09/17 09:00 07/09/17 08:36 Digoxin (Lanoxin) 0.25 mg DAILY PO 07/09/17 09:00 07/09/17 08:37 Fluticasone Propionate (Flovent Hfa 110 Mcg Inh) 1 puff BID INH 07/08/17 21:00 07/09/17 10:10 Metolazone (Zaroxolyn) 5 mg DAILY PO 07/09/17 09:00 07/09/17 08:36 Potassium Chloride (KCl) 20 meq Q12HR PO 07/08/17 21:00 07/09/17 22:12 Albuterol Sulfate (Proventil) 2 mg Q6HR PO 07/08/17 18:00 07/09/17 22:19 Albumin Human (Albumin 25% Inj) 25 gm BID@0900,1800 IV 07/09/17 09:00 07/09/17 18:04 Vital Signs / I&O Vital Signs Date Time Temp Pulse Resp B/P (MAP) Pulse Ox O2 Delivery O2 Flow Rate FiO2 07/10/17 08:21 92 112/79 07/10/17 07:00 100 Room Air 07/10/17 07:00 97.8 98 20 107/74 (85) 100 07/10/17 07:00 91 07/10/17 02:50 101 07/10/17 02:00 96 07/10/17 01:00 92 07/10/17 00:00 100 07/09/17 23:53 98.1 93 18 120/80 (93) 94 07/09/17 23:00 92 07/09/17 22:00 84 07/09/17 21:00 92 07/09/17 20:00 100 Nasal Cannula 2.00 07/09/17 20:00 92 07/09/17 20:00 97.4 92 18 105/69 (81) 92 07/09/17 19:19 92 105/69 07/09/17 19:00 94 07/09/17 19:00 93 07/09/17 18:00 94 07/09/17 17:00 94 07/09/17 16:49 92 112/79 07/09/17 16:00 93 07/09/17 15:00 92 19 112/79 (90) 98 07/09/17 15:00 95 07/09/17 14:00 100 07/09/17 13:00 93 07/09/17 12:00 114 07/09/17 11:00 102 07/09/17 11:00 104 19 111/82 (92) 100 07/09/17 10:19 103 102/64 07/09/17 10:00 92 I/O 07/09/17 07/09/17 07/09/17 07/10/17 07/10/17 07/10/17 07:00 15:00 23:00 07:00 15:00 23:00 Intake Total 595 ml 70 ml 240 ml Output Total 400 ml 900 ml 775 ml Balance 195 ml -830 ml -535 ml Intake Oral 240 ml 240 ml IV Total 355 ml 70 ml Output Urine Total 400 ml 900 ml 775 ml # Bowel Movements 0 0 Physical Exam GENERAL: This is a well-nourished, well-developed patient, in no apparent distress. CARDIOVASCULAR: Regular rate and irregular rhythm without murmurs, gallops, or rubs. RESPIRATORY: Clear to auscultation. Breath sounds equal bilaterally. No wheezes , rales, or rhonchi. GASTROINTESTINAL: Abdomen soft, non-tender, nondistended. Normal, active bowel sounds MUSCULOSKELETAL: Extremities 1+ edema bilat NEURO: Alert & Oriented x4 to person, place, time, situation. Moves all ext x4 Laboratory Laboratory Tests Test 07/10/17 04:20 Prothrombin Time 15.0 SEC Prothromb Time International Ratio 1.3 RATIO Blood Urea Nitrogen 31 MG/DL Creatinine 1.58 MG/DL Random Glucose 95 MG/DL Total Protein 7.5 GM/DL Albumin 3.2 GM/DL Calcium Level 8.6 MG/DL Alkaline Phosphatase 132 U/L Aspartate Amino Transf (AST/SGOT) 80 U/L Alanine Aminotransferase (ALT/SGPT) 70 U/L Total Bilirubin 2.1 MG/DL Direct Bilirubin 1.1 MG/DL Sodium Level 131 MEQ/L Potassium Level 3.9 MEQ/L Chloride Level 95 MEQ/L Carbon Dioxide Level 24.1 MEQ/L Anion Gap 12 MEQ/L Estimat Glomerular Filtration Rate 53 ML/MIN Indirect Bilirubin 1.0 MG/DL Imaging Last Impressions Chest X-Ray 07/08/17 0000 Signed Impressions: Service Date/Time: June 18:32 - CONCLUSION: 1. No evidence of failure or pneumonia. 2. Mild compensated cardiomegaly. 3. Mild left base atelectasis. Elevated left hemidiaphragm again seen. Remi Beebe MD Assessment and Plan Problem List: (1) Rapid atrial fibrillation ICD Codes: I48.91 - Unspecified atrial fibrillation Status: Acute Plan: better on amio; will start PO and stop the IV drip tomorrow (2) CAD in [place] artery ICD Codes: I25.10 - Atherosclerotic heart disease of [place] coronary artery without angina pectoris Status: Chronic (3) Cardiomyopathy ICD Codes: I42.9 - Cardiomyopathy, unspecified Status: Acute Plan: Currently bp's a bit marginal for bb/sonia/arb/entresto but perhaps can be added prior to d/c (4) Acute on chronic systolic (congestive) heart failure ICD Codes: I50.23 - Acute on chronic systolic (congestive) heart failure Plan: on oral lasix/metolazone (5) CKD (chronic kidney disease) ICD Codes: N18.9 - Chronic kidney disease, unspecified Plan: Cr has increased w/ diuresis, will need to be watched, particularly given digoxin use Epifanio Braswell MD Jul 10, 2017 09:19
[2017-07-10] MEDS ORDERED: AMIODARONE 200 MG TAB PO ONE (09:30)
[2017-07-10] MEDS ORDERED: FUROSEMIDE 40 MG/4 ML VIAL IV PUSH ONE (09:30)
[2017-07-10] MEDS: ATORVASTATIN 20 MG TAB PO SCH (09:42)
[2017-07-10] MEDS: CLOPIDOGREL 75 MG TAB PO SCH (09:42)
[2017-07-10] MEDS ORDERED: WARFARIN SOD 7.5 MG TAB PO SCH (16:00)
[2017-07-10] MEDS: WARFARIN SOD 7.5 MG TAB PO SCH (16:05)
[2017-07-10] MEDS: AMIODARONE 200 MG TAB PO SCH (23:06)
[2017-07-11] VITALS (23 sets, daily range): BP systolic 100–121; BP diastolic 68–83; PULSE 91–104; RESP 18–20; TEMP 97.4–98.1; O2SAT 97–100
[2017-07-11] MEDS: ALBUTEROL SULFATE 2 MG TAB PO SCH ×3 (06:00→17:44)
[2017-07-11] MEDS: ALBUMIN HUMAN 25% 25 GM/100 ML BAGP IV SCH ×2 (08:27→17:43)
[2017-07-11] MEDS: DIGOXIN 0.25 MG TAB PO SCH (08:27)
[2017-07-11] MEDS: ATORVASTATIN 20 MG TAB PO SCH (08:28)
[2017-07-11] MEDS: AMIODARONE 200 MG TAB PO SCH ×2 (08:28→21:00)
[2017-07-11] MEDS: POTASSIUM CHLORIDE 20 MEQ CONTROLLED RELEASE TAB PO SCH ×2 (08:28→21:32)
[2017-07-11] MEDS: ALLOPURINOL 100 MG TAB PO SCH (08:28)
[2017-07-11] MEDS: FUROSEMIDE 40 MG TAB PO SCH ×2 (08:28→17:44)
[2017-07-11] MEDS: METOLAZONE 5 MG TAB PO SCH (08:28)
[2017-07-11] MEDS: CLOPIDOGREL 75 MG TAB PO SCH (08:29)
[2017-07-11] MEDS: ASPIRIN 81 MG CHEW TAB CHEW SCH (08:29)
[2017-07-11] MEDS: FLUTICASONE PROPIONATE 110 MCG/ACT 12 GM INHALER INH SCH ×2 (08:30→21:32)
--- NOTE | 2017-07-11 08:47 | HHI.PR ---
Subjective Remarks says his leg swelling is much better and he is happy denies sob when oob ambulating yesterday no palpitations Objective Vitals heart irreg lung cta abd s/nt ext lower ext porfirio swelling overall reduced. Vital Signs Date Time Temp Pulse Resp B/P (MAP) Pulse Ox O2 Delivery O2 Flow Rate FiO2 07/11/17 08:00 95 07/11/17 07:00 93 07/11/17 07:00 97.4 94 20 111/77 (88) 97 07/11/17 07:00 97 2.00 07/11/17 05:00 96 07/11/17 04:54 98.1 94 20 103/68 (80) 07/11/17 04:00 94 07/11/17 02:00 96 07/11/17 01:00 104 07/11/17 00:00 100 07/10/17 23:00 98.7 100 20 122/88 (99) 98 07/10/17 23:00 100 07/10/17 22:00 104 07/10/17 21:00 110 07/10/17 20:00 98.7 106 20 121/77 (92) 100 07/10/17 20:00 102 07/10/17 20:00 100 Room Air 07/10/17 19:00 101 07/10/17 18:00 101 07/10/17 17:00 93 07/10/17 16:00 103 07/10/17 15:00 98.4 100 20 101/74 (83) 98 07/10/17 15:00 94 07/10/17 14:00 102 07/10/17 13:00 103 07/10/17 12:00 88 07/10/17 11:00 97.3 92 20 116/79 (91) 100 07/10/17 11:00 90 07/10/17 10:00 96 07/10/17 09:00 90 Result Diagram: 07/08/17210907/10/17 0420 A/P Problem List: (1) Rapid atrial fibrillation ICD Codes: I48.91 - Unspecified atrial fibrillation Status: Acute Plan: 1. cad. s/p cabg x 5 2. afib with rvr. improved control 3. systolic chf with exacerbation. EF 30-35% new echo 07/09. EF 20percent, apical thrombus 4. mild veronica 5. 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 discussed with cardiology. amiodarone gtt...stopped on 07/10 and po amio resumed ..overnight some breakthrough rvr....will monitor today and we might need to load with digoxin for better rate control. He has low bp's and we have been avoiding ccb Dr Alvarez to discuss options of rate control with Dr Mata...?ablation. unable to due cardioversion due to LV thrombus cont anticoagulation.increased monitor bmp closely.labs pending today lasix converted back to po.....his renal function had been declining...will adjust accordingly. He is on iv albumen currently. (2) Cardiomyopathy ICD Codes: I42.9 - Cardiomyopathy, unspecified Status: Acute (3) Left ventricular apical thrombus following myocardial infarction ICD Codes: I21.29 - ST elevation (STEMI) myocardial infarction involving other sites; I23.6 - Thrombosis of atrium, auricular appendage, and ventricle as current complications following acute myocardial infarction Status: Chronic (4) CAD in [place] artery ICD Codes: I25.10 - Atherosclerotic heart disease of [place] coronary artery without angina pectoris Status: Chronic (5) S/P CABG x 5 ICD Codes: Z95.1 - Presence of aortocoronary bypass graft Status: Chronic David Tracy MD Jul 11, 2017 08:47
--- NOTE | 2017-07-11 09:47 | PD.CARD.PN ---
Subjective Subjective Remarks Pt feeling well, no complaints. Objective Medications Administered Medications Medications (Trade) Dose Ordered Sig/Syed Route PRN Reason Start Time Stop Time Status Last Admin Dose Admin Allopurinol (Zyloprim) 100 mg DAILY PO 07/09/17 09:00 07/11/17 08:28 Aspirin (Aspirin Chew) 81 mg DAILY CHEW 07/09/17 09:00 07/11/17 08:29 Atorvastatin Calcium (Lipitor) 20 mg DAILY PO 07/09/17 09:00 07/11/17 08:28 Clopidogrel Bisulfate (Plavix) 75 mg DAILY PO 07/09/17 09:00 07/11/17 08:29 Digoxin (Lanoxin) 0.25 mg DAILY PO 07/09/17 09:00 07/11/17 08:27 Fluticasone Propionate (Flovent Hfa 110 Mcg Inh) 1 puff BID INH 07/08/17 21:00 07/11/17 08:30 Metolazone (Zaroxolyn) 5 mg DAILY PO 07/09/17 09:00 07/11/17 08:28 Potassium Chloride (KCl) 20 meq Q12HR PO 07/08/17 21:00 07/11/17 08:28 Albuterol Sulfate (Proventil) 2 mg Q6HR PO 07/08/17 18:00 07/11/17 06:00 Albumin Human (Albumin 25% Inj) 25 gm BID@0900,1800 IV 07/09/17 09:00 07/11/17 08:27 Amiodarone HCl (Cordarone) 200 mg Q12HR PO 07/10/17 21:00 07/11/17 08:28 Warfarin Sodium (Coumadin) 7.5 mg DAILY@16 PO 07/10/17 16:00 07/10/17 16:05 Furosemide (Lasix) 40 mg BID@09,18 PO 07/11/17 09:00 07/11/17 08:28 Vital Signs / I&O Vital Signs Date Time Temp Pulse Resp B/P (MAP) Pulse Ox O2 Delivery O2 Flow Rate FiO2 07/11/17 09:00 91 07/11/17 08:00 95 07/11/17 07:00 93 07/11/17 07:00 97.4 94 20 111/77 (88) 97 07/11/17 07:00 97 2.00 07/11/17 05:00 96 07/11/17 04:54 98.1 94 20 103/68 (80) 07/11/17 04:00 94 07/11/17 02:00 96 07/11/17 01:00 104 07/11/17 00:00 100 07/10/17 23:00 98.7 100 20 122/88 (99) 98 07/10/17 23:00 100 07/10/17 22:00 104 07/10/17 21:00 110 07/10/17 20:00 98.7 106 20 121/77 (92) 100 07/10/17 20:00 102 07/10/17 20:00 100 Room Air 07/10/17 19:00 101 07/10/17 18:00 101 07/10/17 17:00 93 07/10/17 16:00 103 07/10/17 15:00 98.4 100 20 101/74 (83) 98 07/10/17 15:00 94 07/10/17 14:00 102 07/10/17 13:00 103 07/10/17 12:00 88 07/10/17 11:00 97.3 92 20 116/79 (91) 100 07/10/17 11:00 90 07/10/17 10:00 96 I/O 07/10/17 07/10/17 07/10/17 07/11/17 07/11/17 07/11/17 07:00 15:00 23:00 07:00 15:00 23:00 Intake Total 240 ml 720 ml 240 ml Output Total 775 ml 1000 ml 330 ml Balance -535 ml -280 ml -90 ml Intake Oral 240 ml 720 ml 240 ml Output Urine Total 775 ml 1000 ml 330 ml # Bowel Movements 0 1 Physical Exam GENERAL: This is a well-nourished, well-developed patient, in no apparent distress. CARDIOVASCULAR: Regular rate and irregular rhythm without murmurs, gallops, or rubs. RESPIRATORY: Clear to auscultation. Breath sounds equal bilaterally. No wheezes , rales, or rhonchi. GASTROINTESTINAL: Abdomen soft, non-tender, nondistended. Normal, active bowel sounds MUSCULOSKELETAL: Extremities 1+ edema bilat NEURO: Alert & Oriented x4 to person, place, time, situation. Moves all ext x4 Laboratory Laboratory Tests Test 07/10/17 13:40 07/11/17 07:03 Nasal Screen MRSA (PCR) MRSA NOT DETECTED Digoxin Level 0.5 NG/ML Imaging Last Impressions Chest X-Ray 07/08/17 0000 Signed Impressions: Service Date/Time: , July 08, 2017 18:32 - CONCLUSION: 1. No evidence of failure or pneumonia. 2. Mild compensated cardiomegaly. 3. Mild left base atelectasis. Elevated left hemidiaphragm again seen. Remi Beebe MD Assessment and Plan Problem List: (1) Rapid atrial fibrillation ICD Codes: I48.91 - Unspecified atrial fibrillation Status: Acute Plan: better on amio; now PO (2) CAD in [place] artery ICD Codes: I25.10 - Atherosclerotic heart disease of [place] coronary artery without angina pectoris Status: Chronic (3) Cardiomyopathy ICD Codes: I42.9 - Cardiomyopathy, unspecified Status: Acute Plan: will try adding low dose coreg; bp's have been marginal and cr. was trending up so will hold off on sonia/arb/entresto for now, but hopefully can be added prior to d/c (4) Acute on chronic systolic (congestive) heart failure ICD Codes: I50.23 - Acute on chronic systolic (congestive) heart failure (5) CKD (chronic kidney disease) ICD Codes: N18.9 - Chronic kidney disease, unspecified Plan: Cr has increased w/ diuresis, will need to be watched, particularly given digoxin use; labs currently pending this am Assessment and Plan Dr. Alvarez will return tomorrow Epifanio Braswell MD Jul 11, 2017 09:46
[2017-07-11 10:51] LABS: INTERNATIONAL NORMALIZED RATIO 1.6 RATIO; PROTHROMBIN TIME - PATIENT 17.7 SEC (9.8-11.6)
[2017-07-11 10:59] LABS: POTASSIUM 3.4 MEQ/L (3.5-5.1)
[2017-07-11] MEDS ORDERED: POTASSIUM CHLORIDE 20 MEQ CONTROLLED RELEASE TAB PO ONE (12:00)
[2017-07-11] MEDS: DOCUSATE SODIUM 100 MG CAP PO SCH ×2 (13:13→21:32)
[2017-07-11] MEDS: WARFARIN SOD 7.5 MG TAB PO SCH (16:05)
[2017-07-12] VITALS (19 sets, daily range): BP systolic 91–142; BP diastolic 70–84; PULSE 74–115; RESP 16–28; TEMP 97.6–98.4; O2SAT 96–97
[2017-07-12] MEDS: ALBUTEROL SULFATE 2 MG TAB PO SCH ×4 (00:26→18:00)
[2017-07-12 06:47] LABS: INTERNATIONAL NORMALIZED RATIO 1.6 RATIO; PROTHROMBIN TIME - PATIENT 18.1 SEC (9.8-11.6)
[2017-07-12 07:48] LABS: BICARBONATE 29.9 MEQ/L (21.0-32.0); POTASSIUM 3.4 MEQ/L (3.5-5.1)
--- NOTE | 2017-07-12 08:18 | PD.CARD.PN ---
Subjective Subjective Remarks Breathing is improved LE edema still present. JOSE L hose in place NSVT yesterday 16 beats, asymptomatic Objective Medications Active Medications Docusate Sodium (Colace) 100 mg BID PO Last administered on 07/11/17 21:32; Admin Dose 100 MG; Start 07/11/17 at 13:00 Furosemide (Lasix) 40 mg BID@,18 PO Last administered on 07/11/17 17:44; Admin Dose 40 MG; Start 07/11/17 at 09:00 Potassium Chloride (KCl) 40 meq ONCE ONCE PO Last administered on 07/11/17 11: 58; Admin Dose 40 MEQ; Start 07/11/17 at 12:00; Stop 07/11/17 at 12:01; Status DC Vital Signs / I&O Vital Signs Date Time Temp Pulse Resp B/P (MAP) Pulse Ox O2 Delivery O2 Flow Rate FiO2 07/12/17 06:00 96 07/12/17 05:00 83 07/12/17 04:00 93 07/12/17 03:00 97.7 94 20 96/70 (79) 97 07/12/17 03:00 95 07/12/17 02:00 97 07/12/17 01:00 100 07/12/17 00:00 99 07/11/17 23:00 97.8 95 18 100/74 (83) 100 07/11/17 23:00 94 07/11/17 22:00 104 07/11/17 21:00 98 07/11/17 20:00 97.8 102 18 117/81 (93) 100 07/11/17 20:00 104 07/11/17 20:00 99 Room Air 07/11/17 19:00 96 07/11/17 18:00 94 07/11/17 17:00 93 07/11/17 16:00 93 07/11/17 15:00 98.0 99 20 121/83 (96) 99 07/11/17 15:00 93 07/11/17 14:00 102 07/11/17 13:00 92 07/11/17 12:00 93 07/11/17 11:00 102 07/11/17 11:00 97.8 103 20 121/81 (94) 99 07/11/17 10:00 94 07/11/17 09:00 91 I/O 07/11/17 07/11/17 07/11/17 07/12/17 07/12/17 07/12/17 07:00 15:00 23:00 07:00 15:00 23:00 Intake Total 240 ml 720 ml 720 ml Output Total 330 ml 850 ml 1700 ml Balance -90 ml -130 ml -980 ml Intake Oral 240 ml 720 ml 720 ml Output Urine Total 330 ml 850 ml 1700 ml # Bowel Movements 1 Physical Exam HEAD: Normocephalic. EYES: No scleral icterus. No injection or drainage. NECK: + JVD CARDIOVASCULAR: irregular RESPIRATORY: crackles GASTROINTESTINAL: Abdomen soft, non-tender, nondistended. EXT : 3+ edema Laboratory Laboratory Tests Test 07/11/17 10:24 07/12/17 05:40 Prothrombin Time 17.7 SEC 18.1 SEC Prothromb Time International Ratio 1.6 RATIO 1.6 RATIO Blood Urea Nitrogen 28 MG/DL 26 MG/DL Creatinine 1.40 MG/DL 1.35 MG/DL Random Glucose 125 MG/DL 86 MG/DL Calcium Level 8.4 MG/DL 8.7 MG/DL Sodium Level 132 MEQ/L 131 MEQ/L Potassium Level 3.4 MEQ/L 3.4 MEQ/L Chloride Level 92 MEQ/L 93 MEQ/L Carbon Dioxide Level 30.0 MEQ/L 29.9 MEQ/L Anion Gap 10 MEQ/L 8 MEQ/L Estimat Glomerular Filtration Rate 61 ML/MIN 64 ML/MIN Assessment and Plan Problem List: (1) Rapid atrial fibrillation ICD Codes: I48.91 - Unspecified atrial fibrillation Status: Acute (2) CAD in [place] artery ICD Codes: I25.10 - Atherosclerotic heart disease of [place] coronary artery without angina pectoris Status: Chronic (3) Cardiomyopathy ICD Codes: I42.9 - Cardiomyopathy, unspecified Status: Acute (4) Acute on chronic systolic (congestive) heart failure ICD Codes: I50.23 - Acute on chronic systolic (congestive) heart failure (5) CKD (chronic kidney disease) ICD Codes: N18.9 - Chronic kidney disease, unspecified Assessment and Plan afib/aflutter - HR's improved. ambulate and see HR response. INR subtherapeutic. cont amio PO. cont Dig. Unable to add BB or CCB due to SBP. cardiomyopathy - CHF, acute on chronic systolic. Cr stable. on lasix BID and metolazone daily. monitor K+. unable to tolerate LUIS/ARB/Entresto due to SBP. NSVT - asymptomatic. will consult dr. franz EP. ? aflutter ablation vs AVN ablation. I don't think he is a candidate for defibrillator given his chronic apical LV thrombus and risk for cardioembolism with defibrillation, but will ask dr. franz's opinion. Adebayo Alvarez MD Jul 12, 2017 08:18
[2017-07-12] MEDS: FUROSEMIDE 40 MG TAB PO SCH ×2 (09:00→17:26)
[2017-07-12] MEDS ORDERED: POTASSIUM CHLORIDE 20 MEQ CONTROLLED RELEASE TAB PO ONE (09:00)
[2017-07-12] MEDS: POTASSIUM CHLORIDE 20 MEQ CONTROLLED RELEASE TAB PO SCH (09:09)
[2017-07-12] MEDS: ASPIRIN 81 MG CHEW TAB CHEW SCH (09:10)
[2017-07-12] MEDS: CLOPIDOGREL 75 MG TAB PO SCH (09:10)
[2017-07-12] MEDS: DOCUSATE SODIUM 100 MG CAP PO SCH ×2 (09:10→22:40)
[2017-07-12] MEDS: ATORVASTATIN 20 MG TAB PO SCH (09:11)
[2017-07-12] MEDS: DIGOXIN 0.25 MG TAB PO SCH (09:11)
[2017-07-12] MEDS: METOLAZONE 5 MG TAB PO SCH (09:11)
[2017-07-12] MEDS: AMIODARONE 200 MG TAB PO SCH ×3 (09:11→22:40)
[2017-07-12] MEDS: ALLOPURINOL 100 MG TAB PO SCH (09:11)
[2017-07-12] MEDS: FLUTICASONE PROPIONATE 110 MCG/ACT 12 GM INHALER INH SCH ×2 (09:11→21:00)
[2017-07-12] MEDS: ALBUMIN HUMAN 25% 25 GM/100 ML BAGP IV SCH ×2 (09:19→18:00)
--- NOTE | 2017-07-12 17:13 | HHI.PR ---
Subjective Remarks No new complaints. Objective Vitals Vital Signs Date Time Temp Pulse Resp B/P (MAP) Pulse Ox O2 Delivery O2 Flow Rate FiO2 07/12/17 16:00 78 07/12/17 15:00 83 07/12/17 15:00 98.3 83 18 142/77 (98) 97 07/12/17 14:00 79 07/12/17 13:00 88 07/12/17 12:00 75 07/12/17 11:00 77 07/12/17 11:00 97.8 77 16 107/74 (85) 97 07/12/17 10:00 82 07/12/17 09:00 74 07/12/17 08:00 74 07/12/17 07:00 98.4 76 18 108/77 (87) 96 07/12/17 07:00 92 07/12/17 06:00 96 07/12/17 05:00 83 07/12/17 04:00 93 07/12/17 03:00 97.7 94 20 96/70 (79) 97 07/12/17 03:00 95 07/12/17 02:00 97 07/12/17 01:00 100 07/12/17 00:00 99 07/11/17 23:00 97.8 95 18 100/74 (83) 100 07/11/17 23:00 94 07/11/17 22:00 104 07/11/17 21:00 98 07/11/17 20:00 97.8 102 18 117/81 (93) 100 07/11/17 20:00 104 07/11/17 20:00 99 Room Air 07/11/17 19:00 96 07/11/17 18:00 94 Result Diagram: 07/08/17 2110 07/12/17 0540 Imaging Last Impressions Chest X-Ray 07/08/17 0000 Signed Impressions: Service Date/Time: June 18:32 - CONCLUSION: 1. No evidence of failure or pneumonia. 2. Mild compensated cardiomegaly. 3. Mild left base atelectasis. Elevated left hemidiaphragm again seen. Remi Beebe MD Objective Remarks GENERAL: This is a well-nourished, well-developed patient, in no apparent distress. CARDIOVASCULAR: Regular rate and rhythm without murmurs, gallops, or rubs. RESPIRATORY: Clear to auscultation. Breath sounds equal bilaterally. No wheezes , rales, or rhonchi. GASTROINTESTINAL: Abdomen soft, non-tender, nondistended. Normal active bowel sounds MUSCULOSKELETAL: Extremities without clubbing, cyanosis, or edema. NEURO: Alert & Oriented x4 to person, place, time, situation. Moves all ext x4 A/P Problem List: (1) Rapid atrial fibrillation ICD Codes: I48.91 - Unspecified atrial fibrillation Status: Acute Plan: 1. cad. s/p cabg x 5 2. afib with rvr. improved control 3. systolic chf with exacerbation. EF 30-35% new echo 07/09. EF 20percent, apical thrombus 4. mild veronica 5. 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 - comgmt with Cardiology - amiodarone gtt converted to PO amiodarone - HR improved - consult placed to Dr. Mata - cannot cardiovert d/t LV thrombus - coumadin - IV albumin/lasix - Pt refuses continued hospitalization - Although I completely disagree with pt leaving the hospital today, - I do NOT want pt to leave AMA without medications - I have written for medications - HHC and home PT - f/u with PCP & Dr. Mata in 1 week (2) Cardiomyopathy ICD Codes: I42.9 - Cardiomyopathy, unspecified Status: Acute (3) Left ventricular apical thrombus following myocardial infarction ICD Codes: I21.29 - ST elevation (STEMI) myocardial infarction involving other sites; I23.6 - Thrombosis of atrium, auricular appendage, and ventricle as current complications following acute myocardial infarction Status: Chronic (4) CAD in [place] artery ICD Codes: I25.10 - Atherosclerotic heart disease of [place] coronary artery without angina pectoris Status: Chronic (5) S/P CABG x 5 ICD Codes: Z95.1 - Presence of aortocoronary bypass graft Status: Chronic Kwan Woodruff DO Jul 12, 2017 17:13
[2017-07-12] MEDS ORDERED: ASPI81CH25 CHEW (17:26)
[2017-07-12] MEDS: WARFARIN SOD 7.5 MG TAB PO SCH (17:26)
[2017-07-12] MEDS ORDERED: ALLO100 PO (17:26)
[2017-07-12] MEDS ORDERED: FURO40TA PO (17:26)
[2017-07-12] MEDS ORDERED: METO5TAB3 PO (17:26)
[2017-07-12] MEDS ORDERED: AMIO200T PO (17:26)
[2017-07-12] MEDS ORDERED: DIGO0.25 PO (17:26)
--- NOTE | 2017-07-12 17:29 | HHI.FF ---
Face to Face Verification Diagnosis: (1) Acute on chronic systolic (congestive) heart failure (2) CKD (chronic kidney disease) (3) CAD in [place] artery (4) Rapid atrial fibrillation (5) Cardiomyopathy Physical Therapy Order: Evaluate and Treat, Improve ambulation, Strength and gait training Home Health Nursing Order: Medical education Signs/symptoms of disease process CHF education Medication education-adverse effect Nursing assessment with vital signs Instructions: daily INR Lovenox BID once INR is above 2, then stop lovenox and daily INR then INR every wednesday and I have seen patient Hossein Campbell on 07/12/17. My clinical findings support the need for the requested home health care services because: Ltd mobility - disease progression Deconditioned w/ increased weakness Med compliance is questionable Limited ability to care for self Need for psychosocial assistance I certify that my clinical findings support that this patient is homebound because: Impaired cognitive ability/safety Unsafe to leave home unassisted Need for psychosocial assistance Unable to use public transportation Kwan Woodruff DO Jul 12, 2017 17:29
[2017-07-12] MEDS ORDERED: MILRINONE IV ONE (20:00)
[2017-07-12] MEDS ORDERED: SODIUM CHLORIDE 0.9% IV ONE (20:00)
[2017-07-12] MEDS: BUMETANIDE INJ 1 MG/4 ML VIAL IV PUSH SCH (22:43)
[2017-07-12] MEDS: MILRINONE INJ 20 MG in SODIUM CHLORIDE 0.9% INJ 80 ML IV SCH (23:00)
[2017-07-13] VITALS (10 sets, daily range): BP systolic 105–126; BP diastolic 74–85; PULSE 84–111; RESP 18–22; TEMP 97.8–98.5; O2SAT 90–99
[2017-07-13] MEDS: ALBUTEROL SULFATE 2 MG TAB PO SCH ×4 (05:20→23:31)
[2017-07-13] MEDS: BUMETANIDE INJ 1 MG/4 ML VIAL IV PUSH SCH (05:20)
--- NOTE | 2017-07-13 05:52 | MB ---
cc: ANH RUIZ M.D.,TAYO WOODRUFF,JAZZY DONIS,HECTOR Krishna MD DATE OF CONSULTATION 07/12/2017 REASON FOR CONSULTATION Atrial fibrillation, nonsustained ventricular tachycardia. Heart failure. HISTORY OF PRESENT ILLNESS Mr. Knox is a 66-year-old -[place] gentleman with a history of coronary artery disease, coronary artery bypass grafting, ejection fraction 20%. The coronary bypass grafting was in February 2017. Recent echo indicated ejection fraction of 20%, hyperlipidemia, atrial flutter, atrial fibrillation, heart rate very difficult to control with medication, possible left ventricular apical clot, who developed also ventricular tachyarrhythmia during hospitalization. The chart was reviewed. The patient was evaluated. I did have a very long conversation with him and his . Also I did talk twice over the phone with Dr. Woodruff. ALLERGIES GADOBENIC ACID DIFFICULT AIRWAY. SOCIAL HISTORY Gentleman negative for smoking and drinking. FAMILY HISTORY Noncontributory to his current medical condition. MEDICATIONS 1. Lasix. 2. Amiodarone. 3. Coumadin. 4. Aspirin. 5. Lipitor. 6. Plavix. 7. Digoxin. 8. Lasix. 9. Metalazone. 10. Potassium. REVIEW OF SYSTEMS The patient refers some shortness of breath on minimal activity, palpitations. No fever. PHYSICAL EXAMINATION GENERAL: Alert, fully oriented. VITAL SIGNS: He has blood pressure 142/77, pulse 83 at rest, monitor indicates 90, respiratory rate 22 LUNGS: Ventilated. CARDIOVASCULAR: S1-S2 tachycardic. ABDOMEN: Obese. No mass. EXTREMITIES: Edema +2-3. TELEMETRY Atrial fibrillation with a rate of around 90-100 beats per minute. LABORATORY DATA Hemoglobin 11.0, white blood cell count 4.7. Potassium is 3.4, creatinine coming down to 135. INR is 1.6. ASSESSMENT AND RECOMMENDATIONS Mr. Campbell is in heart failure. Just by talking to the gentleman, he is tired. He is sitting in the chair. He was not in bed. The gentleman apparently is retaining fluid in his abdomen. Also edema +3. That can contribute to the heart rate. By moving from the chair the heart rate increased exponentially. The gentleman's heart failure needs to be managed. I had a very long conversation with him and his . I explained to the gentleman also his risk for ventricular tachyarrhythmia is very high. During hospitalization he has had a long run of ventricular tachycardia. The gentleman needs to be transferred to the intensive care unit. After multiple deliberations between himself and his , he agreed to stay. I did mention to him it is going to be at least a week because the heart failure needs to be tuned in. I am aware the gentleman has a left ventricular apical clot but is going to need a defibrillator because, if he has a ventricular tachyarrhythmia, it needs to be rescued independently if the clot can be dislodged or not. He is currently on Coumadin. The gentleman was transferred to the intensive care unit. I discontinued the Lasix, I discontinued the metalazone. I discontinued the digoxin as well as the potassium. I am going to initiate milrinone. Milrinone has some anti- effect. I am going to put the gentleman on Bumex IV. A Madsen catheter will be inserted. Systolic blood pressure was in the 140s. His blood pressure is adequate. Tomorrow morning I will initiate Entresto. The gentleman's condition is critical. His prognosis is guarded. I will monitor him during the hospitalization. Anh Ruiz MD HS/SSB /8:05 PM /5:31 AM
[2017-07-13 06:22] LABS: BICARBONATE 35.6 MEQ/L (21.0-32.0); MAGNESIUM 1.7 MG/DL (1.5-2.5); POTASSIUM 3.1 MEQ/L (3.5-5.1)
--- NOTE | 2017-07-13 09:51 | PD.CONS ---
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 He had a massive AK in November 2016 complicated by cardiogenic shock. EF markedly reduced at about 35%. Subsequently readmitted in February 2017 with unstable angina and systolic heart failure, EF 15 - 20% ranged. Required urgent CABG X 5 with recovery complicated by respiratory difficulties and heart failure. It is noteworthy that his left hemidiaphragm is chronically elevated, demonstrated on CXRs in November, months before his CABG. He comes in at this time with recurrent fluid overload and has been placed on milrinone by cardiology service. The initial response to diuretics has been excellent. He has developed a marked contraction alkalosis which will exacerbate potassium wasting - will improve with a dose or two of carbonic anhydrase inhibitor. Review of Systems Constitutional: DENIES: Diaphoretic episodes, Fatigue, Fever, Weight gain, Weight loss, Chills, Dizziness, Change in appetite, Night Sweats Endocrine: DENIES: Heat/cold intolerance, Polydipsia, Polyuria, Polyphagia Eyes: DENIES: Blurred vision, Diplopia, Eye inflammation, Eye pain, Vision loss , Photosensitivity, Double Vision Respiratory: COMPLAINS OF: Shortness of breath Cardiovascular: COMPLAINS OF: Dyspnea on Exertion, Lower Extremity Edema, Orthopnea Gastrointestinal: DENIES: Abdominal pain, Black stools, Bloody stools, Constipation, Diarrhea, Nausea, Vomiting, Difficulty Swallowing, Anorexia Hematologic/lymphatic: DENIES: Bruising, Lymphadenopathy Immunologic/allergic: DENIES: Eczema, Urticaria Past Family Social History Allergies: Coded Allergies: diatrizoate meglumine (Verified Allergy, Severe, 07/10/17) gadobenic acid (Verified Allergy, Severe, 07/10/17) gadodiamide (Verified Allergy, Severe, 07/10/17) gadoteridol (Verified Allergy, Severe, 07/10/17) iodixanol (Verified Allergy, Severe, 07/10/17) iohexol (Verified Allergy, Severe, 07/10/17) Uncoded Allergies: DIFFICULT AIRWAY (Adverse Reaction, Severe, Cardiac Arrest, 11/30/16) DIFFICULT AIRWAY Physical Exam Vital Signs Vital Signs Date Time Temp Pulse Resp B/P (MAP) Pulse Ox O2 Delivery O2 Flow Rate FiO2 07/13/17 08:00 98.2 101 18 123/81 (95) 99 07/13/17 08:00 84 07/13/17 04:05 98 Nasal Cannula 2.00 07/13/17 04:00 98.5 93 22 105/74 (84) 90 07/13/17 03:40 93 07/13/17 03:00 88 Nasal Cannula 3.00 90 07/13/17 00:30 88 Nasal Cannula 2.00 07/13/17 00:00 97 07/13/17 00:00 98.2 102 22 125/83 (97) 94 07/12/17 23:00 92 122/77 07/12/17 22:45 92 116/84 07/12/17 21:00 115 07/12/17 21:00 97.6 110 28 116/84 (95) 96 07/12/17 20:00 Room Air 07/12/17 17:00 88 07/12/17 16:00 78 07/12/17 15:00 83 07/12/17 15:00 98.3 83 18 142/77 (98) 97 07/12/17 14:00 79 07/12/17 13:00 88 07/12/17 12:00 75 07/12/17 11:00 77 07/12/17 11:00 97.8 77 16 107/74 (85) 97 07/12/17 10:00 82 Physical Exam P 94 - 105, BP 134/81, R 16 non-labored, Sats 96% Head: Normal. Neck: Supple, airway widely patent. Lungs: Clear with few crackles in bases. No wheezes. Comfortable pattern. Heart: NL S1S2, no m,r. No JVD. Abdomen: Benign, soft. Extremities: War, well perfused. 3+ tense edema both legs to knees. Neuro: Alert, cooperative. M/S grossly intact. O X 3. Laboratory Laboratory Tests Test 07/13/17 04:58 Blood Urea Nitrogen 27 Creatinine 1.34 Random Glucose 103 Calcium Level 8.6 Magnesium Level 1.7 Sodium Level 134 Potassium Level 3.1 Chloride Level 91 Carbon Dioxide Level 35.6 Anion Gap 7 Estimat Glomerular Filtration Rate 65 Result Diagram: 07/13/17 0458 Assessment and Plan Assessment and Plan Assessment: 1. Ischemic cardiomyopathy. 2. Dyspnea. 3. Fluid overload. 4. TREVOR. 5. SVT. 6. Contraction alkalosis. Plan: 1. Continue milrinone infusion at present rate. 2. Convert bumex to continuous infusion. 3. Follow electrolytes including mag, phos closely. 4. Serial bedside ECHO by [employer]visor as needed to assess fluid balance. 5. Follow renal function closely. 6. Electrolyte replacement protocol. 7. Elevate legs. Overall impression: He has responded well to initial diuresis and inotropic agent. I think in this case we can avoid a [place]-Gt catheter and follow him with ultrasound. At present he is fairly well compensated but ideally we will arrive at an ideal body weight for him to follow as an outpatient. Looking at his legs, I suspect we can get another 4-6 liters off of him and still have adequate preload. Will discuss with Dr. Mata. If you are planning to place a AICD we should probably stop the coumadin and convert to heparin or lovenox, not therapeutic at present. Donavan Crabtree MD Jul 13, 2017 09:51
[2017-07-13] MEDS: CLOPIDOGREL 75 MG TAB PO SCH (09:56)
[2017-07-13] MEDS: ASPIRIN 81 MG CHEW TAB CHEW SCH (09:57)
[2017-07-13] MEDS: ATORVASTATIN 20 MG TAB PO SCH (09:57)
[2017-07-13] MEDS: DOCUSATE SODIUM 100 MG CAP PO SCH ×2 (09:57→20:30)
[2017-07-13] MEDS: MILRINONE INJ 20 MG in SODIUM CHLORIDE 0.9% INJ 80 ML IV SCH ×2 (09:58→21:47)
[2017-07-13] MEDS: POTASSIUM CHLORIDE 20 MEQ CONTROLLED RELEASE TAB PO SCH ×2 (10:02→11:14)
[2017-07-13] MEDS: ALLOPURINOL 100 MG TAB PO SCH (10:02)
[2017-07-13] MEDS ORDERED: BUMETANIDE INJ 100 ML IV SCH (10:08)
[2017-07-13] MEDS ORDERED: MAGNESIUM SULFATE INJ 4 GM in SODIUM CHLORIDE 0.9% INJ 92 ML IV PRN (10:15)
[2017-07-13] MEDS ORDERED: POTASSIUM PHOSPHATE MONOBASIC 500 MG TAB PO PRN (10:15)
[2017-07-13] MEDS ORDERED: POTASSIUM CHLOR 40 MEQ PREMIX 100 ML IV PRN ×2 (10:15)
[2017-07-13] MEDS ORDERED: POTASSIUM PHOSPHATE INJ 30 MMOL in SODIUM CHLOR 0.9% 250 ML INJ 250 ML IV PRN (10:15)
[2017-07-13] MEDS ORDERED: MAGNESIUM OXIDE 400 MG TAB PO PRN (10:15)
[2017-07-13] MEDS ORDERED: SODIUM PHOSPHATE INJ 30 MMOL in SODIUM CHLOR 0.9% 250 ML INJ 240 ML IV PRN (10:15)
[2017-07-13] MEDS ORDERED: POTASSIUM CHLORIDE 25 MEQ EFFERVESCENT TAB PO PRN (10:15)
[2017-07-13] MEDS ORDERED: POTASSIUM PHOSPHATE MONOBASIC 500 MG TAB PO/TUBE PRN (10:15)
--- NOTE | 2017-07-13 10:45 | PD.CARD.PN ---
Subjective Subjective Remarks breathing improving no further NSVT on tele teran in place Objective Medications Active Medications Bumetanide 100 ml @ 2 mls/hr Q24H IV; Start 07/13/17 at 10:08 Bumetanide (Bumex Inj) 1 mg Q8HR IV PUSH Last administered on 07/13/17 05:20; Admin Dose 1 MG; Start 07/12/17 at 22:00; Stop 07/13/17 at 10:16; Status DC Magnesium Oxide (Mag-Ox) 800 mg UNSCH PRN PO; Start 07/13/17 at 10:15; Status UNV Magnesium Sulfate 2 gm/Sodium Chloride 100 ml @ 50 mls/hr UNSCH PRN IV; Start 07/13/17 at 10:15; Status UNV Magnesium Sulfate 4 gm/Sodium Chloride 100 ml @ 50 mls/hr UNSCH PRN IV; Start 07/13/17 at 10:15; Status UNV Milrinone Lactate 5.3 mg/Sodium Chloride 105.3 ml @ 631.8 mls/ hr BOLUS ONCE IV Last administered on 07/12/17 22:45; Admin Dose 631.8 MLS/HR; Start at 20:00; Stop 07/12/17 at 20:09; Status DC Milrinone Lactate 20 mg/Sodium Chloride 100 ml @ 7.92 mls/hr [id number] IV Last administered on 07/13/17 09:58; Admin Dose 7.92 MLS/HR; Start 07/12/17 at 19:52 Potassium Phosphate (K-Phos) 2,000 mg Q4H PRN PO; Start 07/13/17 at 10:15; Status UNV Potassium Phosphate (K-Phos) 2,000 mg UNSCH PRN PO/TUBE; Start 07/13/17 at 10: 15; Status UNV Potassium Phosphate 30 mmol/ Sodium Chloride 260 ml @ 42 mls/hr UNSCH PRN IV; Start 07/13/17 at 10:15; Status UNV Potassium Bicarb/ Potassium Chloride (K-Lyte Cl Eff) 50 meq UNSCH PRN PO; Start 07/13/17 at 10:15; Status UNV Potassium Chloride 100 ml @ 25 mls/hr UNSCH PRN IV; Start 07/13/17 at 10:15; Status UNV Potassium Chloride 100 ml @ 50 mls/hr Q2H PRN IV; Start 07/13/17 at 10:15; Status UNV Potassium Chloride 100 ml @ 50 mls/hr Q2H PRN IV; Start 07/13/17 at 10:15; Status UNV Potassium Chloride 100 ml @ 50 mls/hr Q2H PRN IV; Start 07/13/17 at 10:15; Status UNV Potassium Chloride (KCl) 40 meq Q4H PO Last administered on 07/13/17t 10:02; Admin Dose 40 MEQ; Start 07/13/17 at 08:30; Stop 07/13/17 at 12:31 Sodium Phosphate 30 mmol/Sodium Chloride 250 ml @ 42 mls/hr UNSCH PRN IV; Start 07/13/17 at 10:15; Status UNV Vital Signs / I&O Vital Signs Date Time Temp Pulse Resp B/P (MAP) Pulse Ox O2 Delivery O2 Flow Rate FiO2 07/13/17 09:58 105 134/81 07/13/17 08:00 98.2 101 18 123/81 (95) 99 07/13/17 08:00 84 07/13/17 04:05 98 Nasal Cannula 2.00 07/13/17 04:00 98.5 93 22 105/74 (84) 90 07/13/17 03:40 93 07/13/17 03:00 88 Nasal Cannula 3.00 90 07/13/17 00:30 88 Nasal Cannula 2.00 07/13/17 00:00 97 07/13/17 00:00 98.2 102 22 125/83 (97) 94 07/12/17 23:00 92 122/77 07/12/17 22:45 92 116/84 07/12/17 21:00 115 07/12/17 21:00 97.6 110 28 116/84 (95) 96 07/12/17 20:00 Room Air 07/12/17 17:00 88 07/12/17 16:00 78 07/12/17 15:00 83 07/12/17 15:00 98.3 83 18 142/77 (98) 97 07/12/17 14:00 79 07/12/17 13:00 88 07/12/17 12:00 75 07/12/17 11:00 77 07/12/17 11:00 97.8 77 16 107/74 (85) 97 I/O 07/12/17 07/12/17 07/12/17 07/13/17 07/13/17 07/13/17 07:00 15:00 23:00 07:00 15:00 23:00 Intake Total 720 ml 400 ml 756 ml Output Total 1700 ml 1400 ml 3075 ml Balance -980 ml -1000 ml -2319 ml Intake Oral 720 ml 400 ml 600 ml IV Total 156 ml Output Urine Total 1700 ml 1400 ml 3075 ml # Bowel Movements 0 Physical Exam HEAD: Normocephalic. EYES: No scleral icterus. No injection or drainage. NECK: + JVD CARDIOVASCULAR: irregular RESPIRATORY: crackles GASTROINTESTINAL: Abdomen soft, non-tender, nondistended. EXT : 3+ edema Laboratory Laboratory Tests Test 07/13/17 04:58 Blood Urea Nitrogen 27 MG/DL Creatinine 1.34 MG/DL Random Glucose 103 MG/DL Calcium Level 8.6 MG/DL Magnesium Level 1.7 MG/DL Sodium Level 134 MEQ/L Potassium Level 3.1 MEQ/L Chloride Level 91 MEQ/L Carbon Dioxide Level 35.6 MEQ/L Anion Gap 7 MEQ/L Estimat Glomerular Filtration Rate 65 ML/MIN Imaging Last Impressions Chest X-Ray 07/08/17 0000 Signed Impressions: Service Date/Time: June 18:32 - CONCLUSION: 1. No evidence of failure or pneumonia. 2. Mild compensated cardiomegaly. 3. Mild left base atelectasis. Elevated left hemidiaphragm again seen. Remi Beebe MD Assessment and Plan Problem List: (1) Rapid atrial fibrillation ICD Codes: I48.91 - Unspecified atrial fibrillation Status: Acute (2) CAD in [place] artery ICD Codes: I25.10 - Atherosclerotic heart disease of [place] coronary artery without angina pectoris Status: Chronic (3) Cardiomyopathy ICD Codes: I42.9 - Cardiomyopathy, unspecified Status: Acute (4) Acute on chronic systolic (congestive) heart failure ICD Codes: I50.23 - Acute on chronic systolic (congestive) heart failure (5) CKD (chronic kidney disease) ICD Codes: N18.9 - Chronic kidney disease, unspecified Assessment and Plan afib/aflutter - HR improved. Hold coumadin for AICD. Lovenox BID. Hold prior to surgery. cont amio. consider BB with improved BP. cardiomyopathy - CHF, acute on chronic systolic. Cr stable. Continue IV diuretic. Cont milrinone gtt. add low dose ACEi or Entresto if BP will tolerate. NSVT - asymptomatic. no further episodes. consider BB. AICD when can tolerate lying flat for prolonged period of time. I discussed the case with Dr. Mata, EP. Will hold off adding BB or Entresto until Dr. Mata to see if he has preference. Appreciate his assistance and expertise. thanks Adebayo Alvarez MD Jul 13, 2017 10:45
[2017-07-13] MEDS: FLUTICASONE PROPIONATE 110 MCG/ACT 12 GM INHALER INH SCH ×2 (10:58→20:30)
--- NOTE | 2017-07-13 12:18 | EKG ---
Date Performed: 07/12/2017 Time Performed: 21:25:16 PTAGE: 66 years EKG: Atrial flutter Left axis deviation IV conduction defect Possible anterior infarct - age und etermined Lateral T wave changes are nonspecific Abnormal ECG PREVIOUS TRACING : 02/19/2017 07.43 Patient is no longer in normal Sinus rhythm compared to the prior tracing. DOCTOR: Chapito Mar Interpretating Date/Time 07/13/2017 12:18:42
[2017-07-13] MEDS: ENOXAPARIN SODIUM 100 MG/ML SYRINGE SQ SCH ×2 (13:26→23:27)
[2017-07-13 18:59] LABS: BICARBONATE 32.1 MEQ/L (21.0-32.0); MAGNESIUM 1.5 MG/DL (1.5-2.5); POTASSIUM 3.4 MEQ/L (3.5-5.1)
[2017-07-13] MEDS: AMIODARONE 200 MG TAB PO SCH (20:30)
[2017-07-13] MEDS: MAGNESIUM SULFATE INJ 2 GM in SODIUM CHLORIDE 0.9% INJ 96 ML IV PRN (21:47)
[2017-07-13] MEDS: ACETAMINOPHEN 325 MG TAB PO PRN (23:28)
--- NOTE | 2017-07-13 23:32 | HHI.PR ---
Subjective Remarks Feeling better Objective Vital Signs Date Time Temp Pulse Resp B/P (MAP) Pulse Ox O2 Delivery O2 Flow Rate FiO2 07/13/17 21:47 102 117/72 07/13/17 16:00 97.9 100 20 126/77 (93) 95 07/13/17 16:00 100 07/13/17 12:00 97.8 102 18 124/76 (92) 98 07/13/17 12:00 102 07/13/17 10:54 99 21 07/13/17 09:58 105 134/81 07/13/17 09:58 94 111/76 07/13/17 08:00 98.2 101 18 123/81 (95) 99 07/13/17 08:00 84 07/13/17 04:05 98 Nasal Cannula 2.00 07/13/17 04:00 98.5 93 22 105/74 (84) 90 07/13/17 03:40 93 07/13/17 03:00 88 Nasal Cannula 3.00 90 07/13/17 00:30 88 Nasal Cannula 2.00 07/13/17 00:00 97 07/13/17 00:00 98.2 102 22 125/83 (97) 94 I/O 07/13/17 07/13/17 07/13/17 07/14/17 07/14/17 07/14/17 07:00 15:00 23:00 07:00 15:00 23:00 Intake Total 756 ml 884 ml Output Total 3075 ml 4950 ml Balance -2319 ml -4066 ml Intake Oral 600 ml 750 ml IV Total 156 ml 134 ml Output Urine Total 3075 ml 4950 ml # Bowel Movements 0 0 Result Diagram: 07/13/17 1709 Imaging Alert, fully oriented Lungs: ventilated Heart: S1, S2 irregular,tachycardia Abdomen: soft, no mass, obese Ext: edema +2 Last Impressions Chest X-Ray 07/08/17 0000 Signed Impressions: Service Date/Time: June 18:32 - CONCLUSION: 1. No evidence of failure or pneumonia. 2. Mild compensated cardiomegaly. 3. Mild left base atelectasis. Elevated left hemidiaphragm again seen. Remi Beebe MD Current Medications Medications (Trade) Dose Ordered Sig/Syed Route Start Time Stop Time Status Last Admin (Zyloprim) 100 mg DAILY PO 07/09/17 09:00 07/13/17 10:02 (Aspirin Chew) 81 mg DAILY CHEW 07/09/17 09:00 07/13/17 09:57 (Lipitor) 20 mg DAILY PO 07/09/17 09:00 07/13/17 09:57 (Plavix) 75 mg DAILY PO 07/09/17 09:00 07/13/17 09:56 (Flovent Hfa 110 Mcg Inh) 1 puff BID INH 07/08/17 21:00 07/13/17 20:30 (Proventil) 2 mg Q6HR PO 07/08/17 18:00 07/13/17 17:42 (Cordarone) 200 mg Q12HR PO 07/10/17 21:00 07/13/17 20:30 (Colace) 100 mg BID PO 07/11/17 13:00 07/13/17 20:30 Milrinone Lactate 20 mg/Sodium Chloride 100 ml @ 7.92 mls/hr [id number] IV 07/12/17 19:52 07/13/17 21:47 Bumetanide 100 ml @ 2 mls/hr Q24H IV 07/13/17 10:08 07/13/17 10:59 Potassium Chloride 100 ml @ 50 mls/hr Q2H PRN IV 07/13/17 10:15 Potassium Chloride 100 ml @ 50 mls/hr Q2H PRN IV 07/13/17 10:15 (K-Lyte Cl Eff) 50 meq UNSCH PRN PO 07/13/17 10:15 07/13/17 21:45 Potassium Chloride 100 ml @ 25 mls/hr UNSCH PRN IV 07/13/17 10:15 Potassium Chloride 100 ml @ 50 mls/hr Q2H PRN IV 07/13/17 10:15 Magnesium Sulfate 4 gm/Sodium Chloride 100 ml @ 50 mls/hr UNSCH PRN IV 07/13/17 10:15 (Mag-Ox) 800 mg UNSCH PRN PO 07/13/17 10:15 Magnesium Sulfate 2 gm/Sodium Chloride 100 ml @ 50 mls/hr UNSCH PRN IV 07/13/17 10:15 07/13/17 21:47 (K-Phos) 2,000 mg Q4H PRN PO 07/13/17 10:15 Sodium Phosphate 30 mmol/Sodium Chloride 250 ml @ 42 mls/hr UNSCH PRN IV 07/13/17 10:15 (K-Phos) 2,000 mg UNSCH PRN PO/TUBE 07/13/17 10:15 Potassium Phosphate 30 mmol/ Sodium Chloride 260 ml @ 42 mls/hr UNSCH PRN IV 07/13/17 10:15 (Lovenox Inj) 100 mg Q12H SQ 07/13/17 12:00 07/13/17 13:26 (Tylenol) 650 mg Q4H PRN PO 07/13/17 23:30 Assessment and Plan Problem List: (1) Rapid atrial fibrillation ICD Codes: I48.91 - Unspecified atrial fibrillation Status: Acute Plan: HR high. Still in heart failure Coreg will be increased Not a candidate for atrial flutter ablation due to LV clot. (2) Acute on chronic systolic (congestive) heart failure ICD Codes: I50.23 - Acute on chronic systolic (congestive) heart failure Plan: Condition significantly improve Lost over 10lbs Doing better Will continue on milrinone until AM then entresto will be initiated. Will continue also on IV bumex Still edema of extremities When stable defib implantation will be considered Condition of care Prognosis guarded. case discussed with patient and . Chaka Mata MD Jul 13, 2017 23:32
[2017-07-14 00:45] LABS: MRSA PCR NEGATIVE (NEGATIVE); STAPH AUREUS PCR NEGATIVE (NEGATIVE)
[2017-07-14 03:00] VITALS: BP 117/71; PULSE 108; RESP 18; TEMP 97.9; O2SAT 96
[2017-07-14 03:18] LABS: BICARBONATE 35.5 MEQ/L (21.0-32.0); MAGNESIUM 1.9 MG/DL (1.5-2.5); POTASSIUM 3.6 MEQ/L (3.5-5.1)
[2017-07-14] MEDS: ALBUTEROL SULFATE 2 MG TAB PO SCH ×3 (06:00→18:00)
--- NOTE | 2017-07-14 06:45 | HHI.CCPN ---
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 He had a massive [place] in November 2016 complicated by cardiogenic shock. EF markedly reduced at about 35%. Subsequently readmitted in February 2017 with unstable angina and systolic heart failure, EF 15 - 20% ranged. Required urgent CABG X 5 with recovery complicated by respiratory difficulties and heart failure. It is noteworthy that his left hemidiaphragm is chronically elevated, demonstrated on CXRs in November, months before his CABG. He comes in at this time with recurrent fluid overload and has been placed on milrinone by cardiology service. The initial response to diuretics has been excellent. He has developed a marked contraction alkalosis which will exacerbate potassium wasting - will improve with a dose or two of carbonic anhydrase inhibitor. 07/14: Nice response to bumex gtt, will reduce rate to 0.25 mg/hr and add albumin scheduled. Will allow mild prerenal azotemia and follow peripheral edema as a guide. Diamox X 1 for contraction alkalosis. Mag, K, phos replacement ongoing. He feels better. Milrinone was stopped earlier today but he became hypotensive and anuric. Will restart and back off on diuretic a little. Objective Vital Signs Date Time Temp Pulse Resp B/P (MAP) Pulse Ox O2 Delivery O2 Flow Rate FiO2 07/14/17 03:00 97.9 108 18 117/71 (86) 96 07/13/17 10:54 21 07/13/17 04:05 Nasal Cannula 2.00 Intake and Output 07/14/17 07/14/17 07/15/17 08:00 16:00 00:00 Intake Total 930 ml Output Total 3960 ml Balance -3030 ml Result Diagram: 07/14/17 0240 Objective Remarks P 102 - 105, BP 117/75, R 13 non-labored, Sats 96% Head: Normal. Neck: Supple, airway widely patent. Lungs: Clear with few crackles in bases. No wheezes. Comfortable pattern. Heart: NL S1S2, no m,r. No JVD. Abdomen: Benign, soft. BS active. Extremities: Warm, well perfused. 2-3+ tense edema both legs to knees. Neuro: Alert, cooperative. M/S grossly intact. O X 3. A/P Assessment and Plan Assessment: 1. Ischemic cardiomyopathy. 2. Dyspnea. 3. Fluid overload. 4. TREVOR. 5. SVT. 6. Contraction alkalosis. Plan: 1. Continue milrinone infusion at present rate. 2. Continue bumex to continuous infusion. 3. Follow electrolytes including mag, phos closely. 4. Serial bedside ECHO as needed to assess fluid balance. 5. Follow renal function closely. 6. Electrolyte replacement protocol. 7. Elevate legs. 8. AICD when properly desiccated. Overall impression: He has responded well to initial diuresis and inotropic agent. I think in this case we can avoid a Hazen-Gt catheter and follow him with ultrasound. At present he is fairly well compensated but ideally we will arrive at an ideal body weight for him to follow as an outpatient. Looking at his legs, I suspect we can get another 4-6 liters off of him and still have adequate preload. Discussed with Dr. Alvarez. Donavan Crabtree MD Jul 14, 2017 06:45
[2017-07-14 07:00] VITALS: BP 116/79; PULSE 103; PULSE 98; RESP 20; TEMP 97.9; O2SAT 90
[2017-07-14] MEDS: DOCUSATE SODIUM 100 MG CAP PO SCH ×2 (08:19→21:40)
[2017-07-14] MEDS: ALLOPURINOL 100 MG TAB PO SCH (08:19)
[2017-07-14] MEDS: ASPIRIN 81 MG CHEW TAB CHEW SCH (08:19)
[2017-07-14] MEDS: FLUTICASONE PROPIONATE 110 MCG/ACT 12 GM INHALER INH SCH ×2 (08:19→21:40)
[2017-07-14] MEDS: ALBUMIN HUMAN 25% 25 GM/100 ML BAGP IV SCH ×2 (08:20→14:29)
[2017-07-14] MEDS: CLOPIDOGREL 75 MG TAB PO SCH (08:20)
[2017-07-14] MEDS: ATORVASTATIN 20 MG TAB PO SCH (08:23)
[2017-07-14] MEDS: AMIODARONE 200 MG TAB PO SCH (08:34)
[2017-07-14] MEDS: SACUBITRIL/VALSARTAN 24 MG-26 MG TAB PO SCH ×2 (08:37→21:40)
[2017-07-14] MEDS ORDERED: CARVEDILOL 3.125 MG TAB PO SCH (09:00)
[2017-07-14 11:00] VITALS: BP 79/44; PULSE 103; PULSE 86; RESP 18; TEMP 97.4; O2SAT 99
[2017-07-14] MEDS: ENOXAPARIN SODIUM 100 MG/ML SYRINGE SQ SCH (12:45)
[2017-07-14] MEDS: MILRINONE INJ 20 MG in SODIUM CHLORIDE 0.9% INJ 80 ML IV SCH (13:49)
--- NOTE | 2017-07-14 14:17 | PD.CARD.PN ---
Subjective Subjective Remarks Doing much better excellent diuresis, but now hypotensive. breathing is better Objective Medications Active Medications Acetaminophen (Tylenol) 650 mg Q4H PRN PO Last administered on 07/13/17 23:28 ; Admin Dose 650 MG; Start 07/13/17 at 23:30 Acetazolamide Sodium (Diamox Inj) 500 mg ONCE ONCE IV PUSH Last administered on 07/14/17 08:37; Admin Dose 500 MG; Start 07/14/17 at 06:45; Stop 07/14/17 at 06:53; Status DC Albumin Human (Albumin 25% Inj) 25 gm Q8H IV Last administered on 07/14/17 08: 20; Admin Dose 25 GM; Start 07/14/17 at 07:00; Stop 07/15/17 at 23:01 Amiodarone HCl (Cordarone) 200 mg DAILY PO Last administered on 07/14/17 08:34 ; Admin Dose 200 MG; Start 07/14/17 at 09:00; Stop 08/13/17 at 09:00 Carvedilol (Coreg) 3.125 mg DAILY PO Last administered on 07/14/17 08:34; Admin Dose 3.125 MG; Start 07/14/17 at 09:00 Milrinone Lactate 20 mg/Sodium Chloride 100 ml @ 11.21 mls/ hr Q8H56M IV; Start 07/14/17 at 13:49 Sacubitril/ Valsartan (Entresto 24-26 Mg) 1 tab BID PO Last administered on 07/14 08:37; Admin Dose 1 TAB; Start 07/14/17 at 09:00 Vital Signs / I&O Vital Signs Date Time Temp Pulse Resp B/P (MAP) Pulse Ox O2 Delivery O2 Flow Rate FiO2 07/14/17 11:00 97.4 86 18 79/44 (56) 99 07/14/17 11:00 103 07/14/17 07:00 103 07/14/17 07:00 97.9 98 20 116/79 (91) 90 07/14/17 03:00 97.9 108 18 117/71 (86) 96 07/14/17 03:00 108 07/14/17 00:30 20 07/13/17 23:00 98.5 111 22 116/85 (95) 94 07/13/17 23:00 111 07/13/17 21:47 102 117/72 07/13/17 19:00 102 07/13/17 19:00 98.2 102 22 117/77 (90) 95 07/13/17 16:00 97.9 100 20 126/77 (93) 95 07/13/17 16:00 100 I/O 07/13/17 07/13/17 07/13/17 07/14/17 07/14/17 07/14/17 07:00 15:00 23:00 07:00 15:00 23:00 Intake Total 756 ml 984 ml 930 ml Output Total 3075 ml 4950 ml 3960 ml Balance -2319 ml -3966 ml -3030 ml Intake Oral 600 ml 750 ml 700 ml IV Total 156 ml 234 ml 230 ml Output Urine Total 3075 ml 4950 ml 3960 ml # Bowel Movements 0 0 0 Physical Exam HEAD: Normocephalic. EYES: No scleral icterus. No injection or drainage. NECK: + JVD CARDIOVASCULAR: irregular RESPIRATORY: clear GASTROINTESTINAL: Abdomen soft, non-tender, nondistended. EXT : 3+ edema Laboratory Laboratory Tests Test 07/13/17 17:09 07/13/17 17:30 07/14/17 02:40 Blood Urea Nitrogen 29 MG/DL 29 MG/DL Creatinine 1.32 MG/DL 1.41 MG/DL Random Glucose 114 MG/DL 110 MG/DL Calcium Level 9.2 MG/DL 8.9 MG/DL Phosphorus Level 2.8 MG/DL 2.8 MG/DL Magnesium Level 1.5 MG/DL 1.9 MG/DL Sodium Level 130 MEQ/L 132 MEQ/L Potassium Level 3.4 MEQ/L 3.6 MEQ/L Chloride Level 88 MEQ/L 87 MEQ/L Carbon Dioxide Level 32.1 MEQ/L 35.5 MEQ/L Anion Gap 10 MEQ/L 10 MEQ/L Estimat Glomerular Filtration Rate 66 ML/MIN 61 ML/MIN Nasal Screen MRSA (PCR) NEGATIVE Staphylococcus aureus (PCR)(LAB) NEGATIVE B-Type Natriuretic Peptide 672 PG/ML Imaging Last Impressions Chest X-Ray 07/08/17 0000 Signed Impressions: Service Date/Time: June 18:32 - CONCLUSION: 1. No evidence of failure or pneumonia. 2. Mild compensated cardiomegaly. 3. Mild left base atelectasis. Elevated left hemidiaphragm again seen. Remi Beebe MD Assessment and Plan Problem List: (1) Rapid atrial fibrillation ICD Codes: I48.91 - Unspecified atrial fibrillation Status: Acute (2) CAD in [place] artery ICD Codes: I25.10 - Atherosclerotic heart disease of [place] coronary artery without angina pectoris Status: Chronic (3) Cardiomyopathy ICD Codes: I42.9 - Cardiomyopathy, unspecified Status: Acute (4) Acute on chronic systolic (congestive) heart failure ICD Codes: I50.23 - Acute on chronic systolic (congestive) heart failure (5) CKD (chronic kidney disease) ICD Codes: N18.9 - Chronic kidney disease, unspecified Assessment and Plan afib/aflutter - HR improved. Hold coumadin for AICD. Lovenox BID. Hold prior to surgery. cardiomyopathy - CHF, acute on chronic systolic. Entresto started. cont milrinone gtt. due to hypotension and significant U.OP., hold IV lasix to give him a chance to mobilize fluid. SBP 70's. NSVT - asymptomatic. no further episodes. AICD, hopefully wednesday. RIANA Shelton and Dr. Crabtree following. Appreciate their help very much. hold BB due to hypotension for now Minor,Adebayo Valles MD Jul 14, 2017 14:17
[2017-07-14 15:00] VITALS: BP 82/50; PULSE 86; PULSE 97; RESP 18; TEMP 97.2; O2SAT 99
[2017-07-14 17:17] LABS: BICARBONATE 39.3 MEQ/L (21.0-32.0); MAGNESIUM 1.9 MG/DL (1.5-2.5); POTASSIUM 3.1 MEQ/L (3.5-5.1)
[2017-07-14] MEDS ORDERED: SODIUM CHLOR 0.9% 250 ML INJ 250 ML IV ONE (17:30)
[2017-07-14] MEDS ORDERED: NOREPINEPHRINE INJ 4 MG in SODIUM CHLOR 0.9% 250 ML INJ 246 ML IV PRN (17:30)
[2017-07-14] MEDS ORDERED: TERBUTALINE INJ 1 MG/ML AMP SQ PRN (17:30)
[2017-07-14] MEDS ORDERED: NOREPINEPHRINE-DEXTROSE DRIP 250 ML IV ONE (17:39)
--- NOTE | 2017-07-14 19:02 | HHI.PR ---
Subjective Remarks Doing better Objective Vital Signs Date Time Temp Pulse Resp B/P (MAP) Pulse Ox O2 Delivery O2 Flow Rate FiO2 07/14/17 18:05 87 83/51 07/14/17 17:45 87 70/45 07/14/17 15:00 97.2 86 18 82/50 (61) 99 07/14/17 15:00 97 07/14/17 13:49 84 72/45 07/14/17 11:00 97.4 86 18 79/44 (56) 99 07/14/17 11:00 103 07/14/17 07:00 103 07/14/17 07:00 97.9 98 20 116/79 (91) 90 07/14/17 03:00 97.9 108 18 117/71 (86) 96 07/14/17 03:00 108 07/14/17 00:30 20 07/13/17 23:00 98.5 111 22 116/85 (95) 94 07/13/17 23:00 111 07/13/17 21:47 102 117/72 07/13/17 19:00 102 07/13/17 19:00 98.2 102 22 117/77 (90) 95 I/O 07/13/17 07/13/17 07/13/17 07/14/17 07/14/17 07/14/17 07:00 15:00 23:00 07:00 15:00 23:00 Intake Total 756 ml 984 ml 1030 ml 100 ml 1664 ml Output Total 3075 ml 4950 ml 3960 ml 1150 ml Balance -2319 ml -3966 ml -2930 ml 100 ml 514 ml Intake Oral 600 ml 750 ml 700 ml 1150 ml IV Total 156 ml 234 ml 330 ml 100 ml 314 ml Albumin 200 ml Output Urine Total 3075 ml 4950 ml 3960 ml 1150 ml # Bowel Movements 0 0 0 0 Result Diagram: 07/14/17 1640 Imaging Alert,fully oriented Lungs: ventilated Heart: s1, S2 irregular,no gallop Abdomen: soft, no mass Ext:no edema Last Impressions Chest X-Ray 07/08/17 0000 Signed Impressions: Service Date/Time: June 18:32 - CONCLUSION: 1. No evidence of failure or pneumonia. 2. Mild compensated cardiomegaly. 3. Mild left base atelectasis. Elevated left hemidiaphragm again seen. Remi Beebe MD Current Medications Medications (Trade) Dose Ordered Sig/Syed Route Start Time Stop Time Status Last Admin (Zyloprim) 100 mg DAILY PO 07/09/17 09:00 07/14/17 08:19 (Aspirin Chew) 81 mg DAILY CHEW 07/09/17 09:00 07/14/17 08:19 (Lipitor) 20 mg DAILY PO 07/09/17 09:00 07/14/17 08:23 (Plavix) 75 mg DAILY PO 07/09/17 09:00 07/14/17 08:20 (Flovent Hfa 110 Mcg Inh) 1 puff BID INH 07/08/17 21:00 07/14/17 08:19 (Proventil) 2 mg Q6HR PO 07/08/17 18:00 07/14/17 18:00 (Colace) 100 mg BID PO 07/11/17 13:00 07/14/17 08:19 Bumetanide 100 ml @ 1 mls/hr Q24H IV 07/13/17 10:08 07/13/17 10:59 Potassium Chloride 100 ml @ 50 mls/hr Q2H PRN IV 07/13/17 10:15 Potassium Chloride 100 ml @ 50 mls/hr Q2H PRN IV 07/13/17 10:15 (K-Lyte Cl Eff) 50 meq UNSCH PRN PO 07/13/17 10:15 07/13/17 21:45 Potassium Chloride 100 ml @ 25 mls/hr UNSCH PRN IV 07/13/17 10:15 Potassium Chloride 100 ml @ 50 mls/hr Q2H PRN IV 07/13/17 10:15 Magnesium Sulfate 4 gm/Sodium Chloride 100 ml @ 50 mls/hr UNSCH PRN IV 07/13/17 10:15 (Mag-Ox) 800 mg UNSCH PRN PO 07/13/17 10:15 Magnesium Sulfate 2 gm/Sodium Chloride 100 ml @ 50 mls/hr UNSCH PRN IV 07/13/17 10:15 07/13/17 21:47 (K-Phos) 2,000 mg Q4H PRN PO 07/13/17 10:15 Sodium Phosphate 30 mmol/Sodium Chloride 250 ml @ 42 mls/hr UNSCH PRN IV 07/13/17 10:15 (K-Phos) 2,000 mg UNSCH PRN PO/TUBE 07/13/17 10:15 Potassium Phosphate 30 mmol/ Sodium Chloride 260 ml @ 42 mls/hr UNSCH PRN IV 07/13/17 10:15 (Lovenox Inj) 100 mg Q12H SQ 07/13/17 12:00 07/14/17 12:45 (Tylenol) 650 mg Q4H PRN PO 07/13/17 23:30 07/13/17 23:28 (Albumin 25% Inj) 25 gm Q8H IV 07/14/17 07:00 07/15/17 23:01 07/14/17 14:29 (Cordarone) 200 mg DAILY PO 07/14/17 09:00 08/13/17 09:00 07/14/17 08:34 (Entresto 24-26 Mg) 1 tab BID PO 07/14/17 09:00 07/14/17 08:37 Milrinone Lactate 20 mg/Sodium Chloride 100 ml @ 11.21 mls/ hr Q8H56M IV 07/14/17 13:49 07/14/17 13:49 Norepinephrine Bitartrate 4 mg/ Sodium Chloride 250 ml @ 7.5 mls/hr TITRATE PRN IV 07/14/17 17:30 07/14/17 17:45 (Brethine Inj) 1 mg UNSCH PRN SQ 07/14/17 17:30 Assessment and Plan Problem List: (1) Rapid atrial fibrillation ICD Codes: I48.91 - Unspecified atrial fibrillation Status: Acute Plan: Coreg initiated this morning. HR in the 80s but SBP dropped to 70sd. asymptomatic Milrinone DC (2) Acute on chronic systolic (congestive) heart failure ICD Codes: I50.23 - Acute on chronic systolic (congestive) heart failure Plan: Condition continue to improve Milrinone DC Entresto initiated. SBP can be in the 80saslong it is not symptomatic Creat 2.11. May be prerenal Bumex DC for now Weight dropped from 108 to 98kg. May need IV fluid also Will be closely monitored Lab will be repented in Chaka Alcala MD Jul 14, 2017 19:02
[2017-07-14 19:30] VITALS: PULSE 86
[2017-07-14 20:00] VITALS: BP 107/57; PULSE 87; RESP 22; TEMP 98.1; O2SAT 98
[2017-07-14] MEDS: POTASSIUM CHLOR 20 MEQ PREMIX 100 ML IV PRN (21:43)
[2017-07-15] VITALS (11 sets, daily range): BP systolic 89–102; BP diastolic 49–63; PULSE 78–97; RESP 16–20; TEMP 97.7–98.8; O2SAT 94–99
[2017-07-15] MEDS: ENOXAPARIN SODIUM 100 MG/ML SYRINGE SQ SCH ×2 (00:05→12:23)
[2017-07-15] MEDS: ALBUMIN HUMAN 25% 25 GM/100 ML BAGP IV SCH ×4 (00:05→21:51)
[2017-07-15] MEDS: MAGNESIUM SULFATE INJ 2 GM in SODIUM CHLORIDE 0.9% INJ 96 ML IV PRN (00:09)
[2017-07-15] MEDS: POTASSIUM CHLOR 20 MEQ PREMIX 100 ML IV PRN ×3 (00:29→09:20)
[2017-07-15] MEDS: MILRINONE INJ 20 MG in SODIUM CHLORIDE 0.9% INJ 80 ML IV SCH ×3 (02:41→14:19)
[2017-07-15 05:12] LABS: BICARBONATE 35.9 MEQ/L (21.0-32.0); MAGNESIUM 2.5 MG/DL (1.5-2.5); POTASSIUM 3.5 MEQ/L (3.5-5.1)
[2017-07-15] MEDS: ALBUTEROL SULFATE 2 MG TAB PO SCH ×4 (05:25→17:11)
--- NOTE | 2017-07-15 06:26 | HHI.CCPN ---
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 He had a massive [place] in November 2016 complicated by cardiogenic shock. EF markedly reduced at about 35%. Subsequently readmitted in February 2017 with unstable angina and systolic heart failure, EF 15 - 20% ranged. Required urgent CABG X 5 with recovery complicated by respiratory difficulties and heart failure. It is noteworthy that his left hemidiaphragm is chronically elevated, demonstrated on CXRs in November, months before his CABG. He comes in at this time with recurrent fluid overload and has been placed on milrinone by cardiology service. The initial response to diuretics has been excellent. He has developed a marked contraction alkalosis which will exacerbate potassium wasting - will improve with a dose or two of carbonic anhydrase inhibitor. 07/14: Nice response to bumex gtt, will reduce rate to 0.25 mg/hr and add albumin scheduled. Will allow mild prerenal azotemia and follow peripheral edema as a guide. Diamox X 1 for contraction alkalosis. Mag, K, phos replacement ongoing. He feels better. Milrinone was stopped earlier today but he became hypotensive and anuric. Will restart and back off on diuretic a little. 07/15: Became anuric after milrinone stopped yesterday with subsequent creatinine rise. Diuretic drip stopped and milrinone restarted with nice improvement in spontaneous urine output. Dependent edema persists. Patient insists on sitting up in a chair with legs dependent - states he gets bad leg cramps when legs are elevated. Electrolytes acceptable. Please feel free to taper inotropes and vasopressors however you like. He is breathing comfortably now. Diuretics still on hold. Restart at your discretion. Objective Vital Signs Date Time Temp Pulse Resp B/P (MAP) Pulse Ox O2 Delivery O2 Flow Rate FiO2 07/15/17 03:21 86 07/15/17 03:19 97.7 18 91/49 (63) 94 07/13/17 10:54 21 07/13/17 04:05 Nasal Cannula 2.00 Intake and Output 07/15/17 07/15/17 07/16/17 08:00 16:00 00:00 Intake Total 2234 ml Output Total 1500 ml Balance 734 ml Result Diagram: 07/15/17 0357 Objective Remarks P 99 regular, BP 83/55, R 12 non-labored, Sats 97% Head: Normal. Neck: Supple, airway widely patent. Lungs: Geberally clear with few crackles in bases. No wheezes. Comfortable pattern. Heart: NL S1S2, no m,r. No JVD. Abdomen: Benign, soft. BS active. Extremities: Warm, well perfused. 2-3+ tense edema both legs to knees. Neuro: Alert, cooperative. M/S grossly intact. O X 3. A/P Assessment and Plan Assessment: 1. Ischemic cardiomyopathy. 2. Dyspnea. 3. Fluid overload. 4. TREVOR. 5. SVT. 6. Contraction alkalosis. Plan: 1. Taper milrinone infusion. 2. Continue bumex to continuous infusion. 3. Follow electrolytes including mag, phos closely. 4. Serial bedside ECHO as needed to assess fluid balance. 5. Follow renal function closely. 6. Electrolyte replacement protocol. 7. Elevate legs. 8. AICD when properly desiccated. 9. Diuretics on hold. Overall impression: He has responded well to initial diuresis and inotropic agent. At present he is fairly well compensated but ideally we will arrive at an ideal body weight for him to follow as an outpatient. Allowing some time for his kidneys to recover from overdiuresis. Donavan Crabtree MD Jul 15, 2017 06:26
[2017-07-15] MEDS ORDERED: NOREPINEPHRINE-DEXTROSE DRIP 250 ML IV ONE (07:42)
[2017-07-15] MEDS: DOCUSATE SODIUM 100 MG CAP PO SCH ×2 (08:37→21:50)
[2017-07-15] MEDS: SACUBITRIL/VALSARTAN 24 MG-26 MG TAB PO SCH ×2 (08:37→21:50)
[2017-07-15] MEDS: ATORVASTATIN 20 MG TAB PO SCH (08:37)
[2017-07-15] MEDS: CLOPIDOGREL 75 MG TAB PO SCH (08:37)
[2017-07-15] MEDS: ASPIRIN 81 MG CHEW TAB CHEW SCH (08:38)
[2017-07-15] MEDS: ALLOPURINOL 100 MG TAB PO SCH (08:38)
[2017-07-15] MEDS: FLUTICASONE PROPIONATE 110 MCG/ACT 12 GM INHALER INH SCH ×2 (08:38→21:51)
--- NOTE | 2017-07-15 08:39 | PD.CARD.PN ---
Subjective Subjective Remarks feeling better, improved urine output. resting comfortably eating breakfast. denies chest pain. (Radha Sr) Objective Medications Current Medications Medications (Trade) Dose Ordered Sig/Syed Route Start Time Stop Time Status Last Admin (Zyloprim) 100 mg DAILY PO 07/09/17 09:00 07/14/17 08:19 (Aspirin Chew) 81 mg DAILY CHEW 07/09/17 09:00 07/14/17 08:19 (Lipitor) 20 mg DAILY PO 07/09/17 09:00 07/14/17 08:23 (Plavix) 75 mg DAILY PO 07/09/17 09:00 07/14/17 08:20 (Flovent Hfa 110 Mcg Inh) 1 puff BID INH 07/08/17 21:00 07/14/17 21:40 (Proventil) 2 mg Q6HR PO 07/08/17 18:00 07/15/17 05:25 (Colace) 100 mg BID PO 07/11/17 13:00 07/14/17 21:40 Potassium Chloride 100 ml @ 50 mls/hr Q2H PRN IV 07/13/17 10:15 Potassium Chloride 100 ml @ 50 mls/hr Q2H PRN IV 07/13/17 10:15 07/15/17 00:29 (K-Lyte Cl Eff) 50 meq UNSCH PRN PO 07/13/17 10:15 07/13/17 21:45 Potassium Chloride 100 ml @ 25 mls/hr UNSCH PRN IV 07/13/17 10:15 Potassium Chloride 100 ml @ 50 mls/hr Q2H PRN IV 07/13/17 10:15 07/15/17 07:23 Magnesium Sulfate 4 gm/Sodium Chloride 100 ml @ 50 mls/hr UNSCH PRN IV 07/13/17 10:15 (Mag-Ox) 800 mg UNSCH PRN PO 07/13/17 10:15 Magnesium Sulfate 2 gm/Sodium Chloride 100 ml @ 50 mls/hr UNSCH PRN IV 07/13/17 10:15 07/15/17 00:09 (K-Phos) 2,000 mg Q4H PRN PO 07/13/17 10:15 Sodium Phosphate 30 mmol/Sodium Chloride 250 ml @ 42 mls/hr UNSCH PRN IV 07/13/17 10:15 (K-Phos) 2,000 mg UNSCH PRN PO/TUBE 07/13/17 10:15 Potassium Phosphate 30 mmol/ Sodium Chloride 260 ml @ 42 mls/hr UNSCH PRN IV 07/13/17 10:15 (Lovenox Inj) 100 mg Q12H SQ 07/13/17 12:00 07/15/17 00:05 (Tylenol) 650 mg Q4H PRN PO 07/13/17 23:30 07/13/17 23:28 (Albumin 25% Inj) 25 gm Q8H IV 07/14/17 07:00 07/15/17 23:01 07/15/17 05:26 (Cordarone) 200 mg DAILY PO 07/14/17 09:00 08/13/17 09:00 07/14/17 08:34 (Entresto 24-26 Mg) 1 tab BID PO 07/14/17 09:00 07/14/17 21:40 Milrinone Lactate 20 mg/Sodium Chloride 100 ml @ 11.21 mls/ hr Q8H56M IV 07/14/17 13:49 07/15/17 07:38 Norepinephrine Bitartrate 4 mg/ Sodium Chloride 250 ml @ 7.5 mls/hr TITRATE PRN IV 07/14/17 17:30 07/14/17 17:45 (Brethine Inj) 1 mg UNSCH PRN SQ 07/14/17 17:30 Vital Signs / I&O Vital Signs Date Time Temp Pulse Resp B/P (MAP) Pulse Ox O2 Delivery O2 Flow Rate FiO2 07/15/17 07:51 86 89/54 07/15/17 07:38 86 89/54 07/15/17 07:36 98.8 86 16 89/54 (66) 99 07/15/17 07:35 86 07/15/17 03:21 86 07/15/17 03:19 97.7 78 18 91/49 (63) 94 07/15/17 02:41 87 81/55 07/15/17 00:00 97 07/15/17 00:00 98.4 87 16 102/63 (76) 99 07/14/17 20:00 98.1 87 22 107/57 (74) 98 07/14/17 19:30 86 07/14/17 18:05 87 83/51 07/14/17 17:45 87 70/45 07/14/17 15:00 97.2 86 18 82/50 (61) 99 07/14/17 15:00 97 07/14/17 13:49 84 72/45 07/14/17 11:00 97.4 86 18 79/44 (56) 99 07/14/17 11:00 103 I/O 07/14/17 07/14/17 07/14/17 07/15/17 07/15/17 07/15/17 07:00 15:00 23:00 07:00 15:00 23:00 Intake Total 1030 ml 100 ml 1664 ml 2234 ml 259 ml Output Total 3960 ml 1150 ml 1500 ml Balance -2930 ml 100 ml 514 ml 734 ml 259 ml Intake Oral 700 ml 1150 ml 720 ml IV Total 330 ml 100 ml 314 ml 1514 ml 259 ml Albumin 200 ml Output Urine Total 3960 ml 1150 ml 1500 ml # Bowel Movements 0 0 1 Physical Exam GENERAL: SKIN: Warm and dry. HEAD: Atraumatic. Normocephalic. EYES: Pupils equal and round. No scleral icterus. No injection or drainage. ENT: No nasal bleeding or discharge. Mucous membranes pink and moist. NECK: Trachea midline. No JVD. CARDIOVASCULAR: Regular rate and rhythm. systolic murmur, 2+ dependent led edema RESPIRATORY: No accessory muscle use. Clear to auscultation. Breath sounds equal bilaterally. GASTROINTESTINAL: Abdomen soft, non-tender, nondistended. Hepatic and splenic margins not palpable. MUSCULOSKELETAL: Extremities without clubbing, cyanosis No obvious deformities. NEUROLOGICAL: Awake and alert. No obvious cranial nerve deficits. Normal speech. PSYCHIATRIC: Appropriate mood and affect; insight and judgment normal. Laboratory Laboratory Tests Test 07/14/17 16:40 07/15/17 03:57 Blood Urea Nitrogen 35 MG/DL 40 MG/DL Creatinine 2.11 MG/DL 2.08 MG/DL Random Glucose 100 MG/DL 120 MG/DL Calcium Level 9.0 MG/DL 8.3 MG/DL Phosphorus Level 3.5 MG/DL 3.6 MG/DL Magnesium Level 1.9 MG/DL 2.5 MG/DL Sodium Level 130 MEQ/L 129 MEQ/L Potassium Level 3.1 MEQ/L 3.5 MEQ/L Chloride Level 83 MEQ/L 86 MEQ/L Carbon Dioxide Level 39.3 MEQ/L 35.9 MEQ/L Anion Gap 8 MEQ/L 7 MEQ/L Estimat Glomerular Filtration Rate 38 ML/MIN 39 ML/MIN B-Type Natriuretic Peptide 375 PG/ML (Radha Sr) Assessment and Plan Problem List: (1) Rapid atrial fibrillation ICD Codes: I48.91 - Unspecified atrial fibrillation Status: Acute (2) CAD in [place] artery ICD Codes: I25.10 - Atherosclerotic heart disease of [place] coronary artery without angina pectoris Status: Chronic (3) Cardiomyopathy ICD Codes: I42.9 - Cardiomyopathy, unspecified Status: Acute (4) Acute on chronic systolic (congestive) heart failure ICD Codes: I50.23 - Acute on chronic systolic (congestive) heart failure (5) CKD (chronic kidney disease) ICD Codes: N18.9 - Chronic kidney disease, unspecified Assessment and Plan afib/flutter - cont lovenox, hold prior to surgery tomorrow cardiomyopathy- EF<20%, AICD surgery scheduled for tomorrow. EP following. CHF- cont Entresto, mirinone resumed, improved urine output. creat 2.08, SBP remains in 80's, (Radha Sr) Assessment and Plan agree with above excellent diuresis since arrival to [facility]ICU main issue now is hypotension due to reduced intravascular volume consistent with low Na, Low CL, increased Cr, reduced UOP on milrinone and Levophed (for low BP) would keep him on current regimen. weaning milrinone will leave levophed with increased afterload hold on diuretic allow him to mobilize interstitial fluid, build intravascular volume, then wean levophed first followed by milrinone hold entresto in am if still on levophed ICD when stable (Adebayo Alvarez MD) Radha Sr Jul 15, 2017 08:39 Adebayo Alvarez MD Jul 15, 2017 08:56
[2017-07-15] MEDS: AMIODARONE 200 MG TAB PO SCH (09:59)
[2017-07-15 16:12] LABS: BICARBONATE 37.5 MEQ/L (21.0-32.0); MAGNESIUM 2.6 MG/DL (1.5-2.5); POTASSIUM 3.6 MEQ/L (3.5-5.1)
--- NOTE | 2017-07-15 22:37 | HHI.PR ---
Subjective Remarks Need to go back to work Objective Vital Signs Date Time Temp Pulse Resp B/P (MAP) Pulse Ox O2 Delivery O2 Flow Rate FiO2 07/15/17 15:05 98.2 81 20 94/60 (71) 99 07/15/17 15:02 86 07/15/17 14:19 86 92/54 07/15/17 11:02 86 07/15/17 11:01 98.3 86 16 92/63 (73) 99 07/15/17 07:51 86 89/54 07/15/17 07:38 86 89/54 07/15/17 07:36 98.8 86 16 89/54 (66) 99 07/15/17 07:35 86 07/15/17 03:21 86 07/15/17 03:19 97.7 78 18 91/49 (63) 94 07/15/17 02:41 87 81/55 07/15/17 00:00 97 07/15/17 00:00 98.4 87 16 102/63 (76) 99 I/O 07/14/17 07/14/17 07/14/17 07/15/17 07/15/17 07/15/17 07:00 15:00 23:00 07:00 15:00 23:00 Intake Total 1030 ml 100 ml 1664 ml 2234 ml 559 ml 946 ml Output Total 3960 ml 1150 ml 1500 ml 1485 ml Balance -2930 ml 100 ml 514 ml 734 ml 559 ml -539 ml Intake Oral 700 ml 1150 ml 720 ml 900 ml IV Total 330 ml 100 ml 314 ml 1514 ml 559 ml 46 ml Albumin 200 ml Output Urine Total 3960 ml 1150 ml 1500 ml 1485 ml # Bowel Movements 0 0 1 0 Result Diagram: 07/15/17 1523 Imaging Alert, fully oriented Lungs: ventilated Heart: S1, S2 regular Abdomen: soft, no mass Ext: +1 Last Impressions Chest X-Ray 07/08/17 0000 Signed Impressions: Service Date/Time: June 18:32 - CONCLUSION: 1. No evidence of failure or pneumonia. 2. Mild compensated cardiomegaly. 3. Mild left base atelectasis. Elevated left hemidiaphragm again seen. Remi Beebe MD Current Medications Medications (Trade) Dose Ordered Sig/Syed Route Start Time Stop Time Status Last Admin (Zyloprim) 100 mg DAILY PO 07/09/17 09:00 07/15/17 08:38 (Aspirin Chew) 81 mg DAILY CHEW 07/09/17 09:00 07/15/17 08:38 (Lipitor) 20 mg DAILY PO 07/09/17 09:00 07/15/17 08:37 (Plavix) 75 mg DAILY PO 07/09/17 09:00 07/15/17 08:37 (Flovent Hfa 110 Mcg Inh) 1 puff BID INH 07/08/17 21:00 07/15/17 21:51 (Proventil) 2 mg Q6HR PO 07/08/17 18:00 07/15/17 05:25 (Colace) 100 mg BID PO 07/11/17 13:00 07/15/17 21:50 Potassium Chloride 100 ml @ 50 mls/hr Q2H PRN IV 07/13/17 10:15 Potassium Chloride 100 ml @ 50 mls/hr Q2H PRN IV 07/13/17 10:15 07/15/17 09:20 (K-Lyte Cl Eff) 50 meq UNSCH PRN PO 07/13/17 10:15 07/13/17 21:45 Potassium Chloride 100 ml @ 25 mls/hr UNSCH PRN IV 07/13/17 10:15 Potassium Chloride 100 ml @ 50 mls/hr Q2H PRN IV 07/13/17 10:15 07/15/17 07:23 Magnesium Sulfate 4 gm/Sodium Chloride 100 ml @ 50 mls/hr UNSCH PRN IV 07/13/17 10:15 (Mag-Ox) 800 mg UNSCH PRN PO 07/13/17 10:15 Magnesium Sulfate 2 gm/Sodium Chloride 100 ml @ 50 mls/hr UNSCH PRN IV 07/13/17 10:15 07/15/17 00:09 (K-Phos) 2,000 mg Q4H PRN PO 07/13/17 10:15 Sodium Phosphate 30 mmol/Sodium Chloride 250 ml @ 42 mls/hr UNSCH PRN IV 07/13/17 10:15 (K-Phos) 2,000 mg UNSCH PRN PO/TUBE 07/13/17 10:15 Potassium Phosphate 30 mmol/ Sodium Chloride 260 ml @ 42 mls/hr UNSCH PRN IV 07/13/17 10:15 (Lovenox Inj) 100 mg Q12H SQ 07/13/17 12:00 07/15/17 12:23 (Tylenol) 650 mg Q4H PRN PO 07/13/17 23:30 07/13/17 23:28 (Albumin 25% Inj) 25 gm Q8H IV 07/14/17 07:00 07/15/17 23:01 07/15/17 21:51 (Cordarone) 200 mg DAILY PO 07/14/17 09:00 08/13/17 09:00 07/15/17 09:59 (Entresto 24-26 Mg) 1 tab BID PO 07/14/17 09:00 07/15/17 21:50 Norepinephrine Bitartrate 4 mg/ Sodium Chloride 250 ml @ 7.5 mls/hr TITRATE PRN IV 07/14/17 17:30 07/14/17 17:45 (Brethine Inj) 1 mg UNSCH PRN SQ 07/14/17 17:30 Assessment and Plan Problem List: (1) Rapid atrial fibrillation ICD Codes: I48.91 - Unspecified atrial fibrillation Status: Acute Plan: In atrial flutter HR control (2) Acute on chronic systolic (congestive) heart failure ICD Codes: I50.23 - Acute on chronic systolic (congestive) heart failure Plan: Condition continue to improve Doing better Case discussed with Dr Voss. Milrinone DC Levophed will be weaned Possible device on Wednesday Chaka Mata MD Jul 15, 2017 22:37
[2017-07-16] MEDS: ENOXAPARIN SODIUM 100 MG/ML SYRINGE SQ SCH ×3 (00:50→23:12)
[2017-07-16 03:00] VITALS: BP 91/54; PULSE 82; PULSE 84; RESP 18; TEMP 98.3; O2SAT 99
[2017-07-16 04:34] LABS: MAGNESIUM 2.6 MG/DL (1.5-2.5); POTASSIUM 3.2 MEQ/L (3.5-5.1)
[2017-07-16] MEDS: ALBUTEROL SULFATE 2 MG TAB PO SCH ×5 (06:00→23:11)
--- NOTE | 2017-07-16 06:21 | HHI.CCPN ---
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 He had a massive [place] in November 2016 complicated by cardiogenic shock. EF markedly reduced at about 35%. Subsequently readmitted in February 2017 with unstable angina and systolic heart failure, EF 15 - 20% ranged. Required urgent CABG X 5 with recovery complicated by respiratory difficulties and heart failure. It is noteworthy that his left hemidiaphragm is chronically elevated, demonstrated on CXRs in November, months before his CABG. He comes in at this time with recurrent fluid overload and has been placed on milrinone by cardiology service. The initial response to diuretics has been excellent. He has developed a marked contraction alkalosis which will exacerbate potassium wasting - will improve with a dose or two of carbonic anhydrase inhibitor. 07/14: Nice response to bumex gtt, will reduce rate to 0.25 mg/hr and add albumin scheduled. Will allow mild prerenal azotemia and follow peripheral edema as a guide. Diamox X 1 for contraction alkalosis. Mag, K, phos replacement ongoing. He feels better. Milrinone was stopped earlier today but he became hypotensive and anuric. Will restart and back off on diuretic a little. 07/15: Became anuric after milrinone stopped yesterday with subsequent creatinine rise. Diuretic drip stopped and milrinone restarted with nice improvement in spontaneous urine output. Dependent edema persists. Patient insists on sitting up in a chair with legs dependent - states he gets bad leg cramps when legs are elevated. Electrolytes acceptable. Please feel free to taper inotropes and vasopressors however you like. He is breathing comfortably now. Diuretics still on hold. Restart at your discretion. 07/16: Fluid balance about even over past 24 hours. Probably need to restart diuretics. Breathing comfortably. Objective Vital Signs Date Time Temp Pulse Resp B/P (MAP) Pulse Ox O2 Delivery O2 Flow Rate FiO2 07/16/17 03:00 98.3 84 18 91/54 (66) 99 07/15/17 22:00 21 07/13/17 04:05 Nasal Cannula 2.00 Result Diagram: 07/16/17 0339 Objective Remarks Head: Normal. Neck: Supple, airway widely patent. Lungs: Clear, crackles in bases. No wheezes. Comfortable pattern. Heart: NL S1S2, no m,r. No JVD. Abdomen: Benign, soft. BS active. No guarding. Extremities: Warm, well perfused. 2-3+ tense edema both legs to knees. Neuro: Alert, cooperative. M/S grossly intact. O X 3. A/P Assessment and Plan Assessment: 1. Ischemic cardiomyopathy. 2. Dyspnea. 3. Fluid overload. 4. TREVOR. 5. SVT. 6. Contraction alkalosis. Plan: 1. Tapered off milrinone infusion. 2. Continue bumex, intermittent. 3. Follow electrolytes including mag, phos closely. 4. Serial bedside ECHO as needed to assess fluid balance. 5. Follow renal function closely. 6. Electrolyte replacement protocol. 7. Elevate legs. 8. AICD. 9. Encourage to keep legs elevated. Overall impression: Fluid balance being optimized for ICD insertion. Donavan Crabtree MD Jul 16, 2017 06:21
[2017-07-16 07:00] VITALS: BP 88/47; PULSE 83; PULSE 84; RESP 20; TEMP 98.1; O2SAT 96
--- NOTE | 2017-07-16 08:32 | PD.CARD.PN ---
Subjective Subjective Remarks feeling well. denies chest pain (Radha Sr) Objective Medications Current Medications Medications (Trade) Dose Ordered Sig/Syed Route Start Time Stop Time Status Last Admin (Zyloprim) 100 mg DAILY PO 07/09/17 09:00 07/15/17 08:38 (Aspirin Chew) 81 mg DAILY CHEW 07/09/17 09:00 07/15/17 08:38 (Lipitor) 20 mg DAILY PO 07/09/17 09:00 07/15/17 08:37 (Plavix) 75 mg DAILY PO 07/09/17 09:00 07/15/17 08:37 (Flovent Hfa 110 Mcg Inh) 1 puff BID INH 07/08/17 21:00 07/15/17 21:51 (Proventil) 2 mg Q6HR PO 07/08/17 18:00 07/15/17 05:25 (Colace) 100 mg BID PO 07/11/17 13:00 07/15/17 21:50 Potassium Chloride 100 ml @ 50 mls/hr Q2H PRN IV 07/13/17 10:15 Potassium Chloride 100 ml @ 50 mls/hr Q2H PRN IV 07/13/17 10:15 07/15/17 09:20 (K-Lyte Cl Eff) 50 meq UNSCH PRN PO 07/13/17 10:15 07/13/17 21:45 Potassium Chloride 100 ml @ 25 mls/hr UNSCH PRN IV 07/13/17 10:15 Potassium Chloride 100 ml @ 50 mls/hr Q2H PRN IV 07/13/17 10:15 07/15/17 07:23 Magnesium Sulfate 4 gm/Sodium Chloride 100 ml @ 50 mls/hr UNSCH PRN IV 07/13/17 10:15 (Mag-Ox) 800 mg UNSCH PRN PO 07/13/17 10:15 Magnesium Sulfate 2 gm/Sodium Chloride 100 ml @ 50 mls/hr UNSCH PRN IV 07/13/17 10:15 07/15/17 00:09 (K-Phos) 2,000 mg Q4H PRN PO 07/13/17 10:15 Sodium Phosphate 30 mmol/Sodium Chloride 250 ml @ 42 mls/hr UNSCH PRN IV 07/13/17 10:15 (K-Phos) 2,000 mg UNSCH PRN PO/TUBE 07/13/17 10:15 Potassium Phosphate 30 mmol/ Sodium Chloride 260 ml @ 42 mls/hr UNSCH PRN IV 07/13/17 10:15 (Lovenox Inj) 100 mg Q12H SQ 07/13/17 12:00 07/16/17 00:50 (Tylenol) 650 mg Q4H PRN PO 07/13/17 23:30 07/13/17 23:28 (Cordarone) 200 mg DAILY PO 07/14/17 09:00 08/13/17 09:00 07/15/17 09:59 (Entresto 24-26 Mg) 1 tab BID PO 07/14/17 09:00 07/15/17 21:50 Norepinephrine Bitartrate 4 mg/ Sodium Chloride 250 ml @ 7.5 mls/hr TITRATE PRN IV 07/14/17 17:30 07/14/17 17:45 (Brethine Inj) 1 mg UNSCH PRN SQ 07/14/17 17:30 Vital Signs / I&O Vital Signs Date Time Temp Pulse Resp B/P (MAP) Pulse Ox O2 Delivery O2 Flow Rate FiO2 07/16/17 03:00 98.3 84 18 91/54 (66) 99 07/16/17 03:00 82 07/15/17 23:00 82 07/15/17 23:00 98.1 81 18 92/59 (70) 97 07/15/17 22:00 21 07/15/17 19:00 84 07/15/17 19:00 98.2 84 18 101/51 (68) 98 07/15/17 15:05 98.2 81 20 94/60 (71) 99 07/15/17 15:02 86 07/15/17 14:19 86 92/54 07/15/17 11:02 86 07/15/17 11:01 98.3 86 16 92/63 (73) 99 I/O 07/15/17 07/15/17 07/15/17 07/16/17 07/16/17 07/16/17 07:00 15:00 23:00 07:00 15:00 23:00 Intake Total 2234 ml 559 ml 946 ml 665 ml Output Total 1500 ml 1485 ml 1340 ml Balance 734 ml 559 ml -539 ml -675 ml Intake Oral 720 ml 900 ml 480 ml IV Total 1514 ml 559 ml 46 ml 185 ml Output Urine Total 1500 ml 1485 ml 1340 ml # Bowel Movements 1 0 1 Physical Exam GENERAL: SKIN: Warm and dry. HEAD: Atraumatic. Normocephalic. EYES: Pupils equal and round. No scleral icterus. No injection or drainage. ENT: No nasal bleeding or discharge. Mucous membranes pink and moist. NECK: Trachea midline. No JVD. CARDIOVASCULAR: Regular rate and rhythm. systolic murmur, 2+ dependent led edema RESPIRATORY: No accessory muscle use. Clear to auscultation. Breath sounds equal bilaterally. GASTROINTESTINAL: Abdomen soft, non-tender, nondistended. Hepatic and splenic margins not palpable. MUSCULOSKELETAL: Extremities without clubbing, cyanosis No obvious deformities. NEUROLOGICAL: Awake and alert. No obvious cranial nerve deficits. Normal speech. PSYCHIATRIC: Appropriate mood and affect; insight and judgment normal. Laboratory Laboratory Tests Test 07/15/17 15:23 07/16/17 03:39 Blood Urea Nitrogen 43 MG/DL 48 MG/DL Creatinine 1.91 MG/DL 1.71 MG/DL Random Glucose 112 MG/DL 123 MG/DL Calcium Level 8.6 MG/DL 8.1 MG/DL Phosphorus Level 3.9 MG/DL 3.9 MG/DL Magnesium Level 2.6 MG/DL 2.6 MG/DL Sodium Level 130 MEQ/L 131 MEQ/L Potassium Level 3.6 MEQ/L 3.2 MEQ/L Chloride Level 86 MEQ/L 90 MEQ/L Carbon Dioxide Level 37.5 MEQ/L 34.0 MEQ/L Anion Gap 7 MEQ/L 7 MEQ/L Estimat Glomerular Filtration Rate 43 ML/MIN 49 ML/MIN B-Type Natriuretic Peptide 692 PG/ML (Radha Sr) Assessment and Plan Problem List: (1) Rapid atrial fibrillation ICD Codes: I48.91 - Unspecified atrial fibrillation Status: Acute (2) CAD in [place] artery ICD Codes: I25.10 - Atherosclerotic heart disease of [place] coronary artery without angina pectoris Status: Chronic (3) Cardiomyopathy ICD Codes: I42.9 - Cardiomyopathy, unspecified Status: Acute (4) Acute on chronic systolic (congestive) heart failure ICD Codes: I50.23 - Acute on chronic systolic (congestive) heart failure (5) CKD (chronic kidney disease) ICD Codes: N18.9 - Chronic kidney disease, unspecified Assessment and Plan afib/flutter - cont lovenox cardiomyopathy- EF<20%, AICD surgery tentatively for Wednesday. EP following. CHF- cont Entresto, mirinone has been d/c'd, improved urine output. creat improving 1.7, SBP improving 91. (Radha Sr) Radha Sr Jul 16, 2017 08:32 Adebayo Alvarez MD Jul 16, 2017 11:34
[2017-07-16] MEDS: ALLOPURINOL 100 MG TAB PO SCH (08:59)
[2017-07-16] MEDS: CLOPIDOGREL 75 MG TAB PO SCH (08:59)
[2017-07-16] MEDS: FLUTICASONE PROPIONATE 110 MCG/ACT 12 GM INHALER INH SCH ×2 (08:59→20:34)
[2017-07-16] MEDS: AMIODARONE 200 MG TAB PO SCH (08:59)
[2017-07-16] MEDS: ATORVASTATIN 20 MG TAB PO SCH (08:59)
[2017-07-16] MEDS: SACUBITRIL/VALSARTAN 24 MG-26 MG TAB PO SCH ×2 (09:00→20:34)
[2017-07-16] MEDS: DOCUSATE SODIUM 100 MG CAP PO SCH ×2 (09:00→20:34)
[2017-07-16] MEDS: ASPIRIN 81 MG CHEW TAB CHEW SCH (09:00)
[2017-07-16] MEDS: POTASSIUM CHLOR 20 MEQ PREMIX 100 ML IV PRN (09:43)
[2017-07-16 11:00] VITALS: BP 84/57; PULSE 82; RESP 16; TEMP 98; O2SAT 99
[2017-07-16] MEDS ORDERED: POTASSIUM CHLORIDE 20 MEQ CONTROLLED RELEASE TAB PO ONE ×2 (12:30→12:45)
--- NOTE | 2017-07-16 14:50 | HHI.PR ---
Subjective Remarks Feeling better Objective Vital Signs Date Time Temp Pulse Resp B/P (MAP) Pulse Ox O2 Delivery O2 Flow Rate FiO2 07/16/17 11:00 98.0 82 16 84/57 (66) 99 07/16/17 11:00 82 07/16/17 07:00 84 07/16/17 07:00 98.1 83 20 88/47 (61) 96 07/16/17 03:00 98.3 84 18 91/54 (66) 99 07/16/17 03:00 82 07/15/17 23:00 82 07/15/17 23:00 98.1 81 18 92/59 (70) 97 07/15/17 22:00 21 07/15/17 19:00 84 07/15/17 19:00 98.2 84 18 101/51 (68) 98 07/15/17 15:05 98.2 81 20 94/60 (71) 99 07/15/17 15:02 86 I/O 07/15/17 07/15/17 07/15/17 07/16/17 07/16/17 07/16/17 07:00 15:00 23:00 07:00 15:00 23:00 Intake Total 2234 ml 559 ml 946 ml 665 ml Output Total 1500 ml 1485 ml 1340 ml Balance 734 ml 559 ml -539 ml -675 ml Intake Oral 720 ml 900 ml 480 ml IV Total 1514 ml 559 ml 46 ml 185 ml Output Urine Total 1500 ml 1485 ml 1340 ml # Bowel Movements 1 0 1 Result Diagram: 07/16/17 0339 Imaging Alert, fully oriented Lungs: ventilated Heart: S1,S2 regular Abdomen:soft, no mass Ext: no edema Last Impressions Chest X-Ray 07/08/17 0000 Signed Impressions: Service Date/Time: June 18:32 - CONCLUSION: 1. No evidence of failure or pneumonia. 2. Mild compensated cardiomegaly. 3. Mild left base atelectasis. Elevated left hemidiaphragm again seen. Remi Beebe MD Current Medications Medications (Trade) Dose Ordered Sig/Syed Route Start Time Stop Time Status Last Admin (Zyloprim) 100 mg DAILY PO 07/09/17 09:00 07/16/17 08:59 (Aspirin Chew) 81 mg DAILY CHEW 07/09/17 09:00 07/16/17 09:00 (Lipitor) 20 mg DAILY PO 07/09/17 09:00 07/16/17 08:59 (Plavix) 75 mg DAILY PO 07/09/17 09:00 07/16/17 08:59 (Flovent Hfa 110 Mcg Inh) 1 puff BID INH 07/08/17 21:00 07/16/17 08:59 (Proventil) 2 mg Q6HR PO 07/08/17 18:00 07/15/17 05:25 (Colace) 100 mg BID PO 07/11/17 13:00 07/15/17 21:50 Potassium Chloride 100 ml @ 50 mls/hr Q2H PRN IV 07/13/17 10:15 Potassium Chloride 100 ml @ 50 mls/hr Q2H PRN IV 07/13/17 10:15 07/15/17 09:20 (K-Lyte Cl Eff) 50 meq UNSCH PRN PO 07/13/17 10:15 07/13/17 21:45 Potassium Chloride 100 ml @ 25 mls/hr UNSCH PRN IV 07/13/17 10:15 Potassium Chloride 100 ml @ 50 mls/hr Q2H PRN IV 07/13/17 10:15 07/16/17 09:43 Magnesium Sulfate 4 gm/Sodium Chloride 100 ml @ 50 mls/hr UNSCH PRN IV 07/13/17 10:15 (Mag-Ox) 800 mg UNSCH PRN PO 07/13/17 10:15 Magnesium Sulfate 2 gm/Sodium Chloride 100 ml @ 50 mls/hr UNSCH PRN IV 07/13/17 10:15 07/15/17 00:09 (K-Phos) 2,000 mg Q4H PRN PO 07/13/17 10:15 Sodium Phosphate 30 mmol/Sodium Chloride 250 ml @ 42 mls/hr UNSCH PRN IV 07/13/17 10:15 (K-Phos) 2,000 mg UNSCH PRN PO/TUBE 07/13/17 10:15 Potassium Phosphate 30 mmol/ Sodium Chloride 260 ml @ 42 mls/hr UNSCH PRN IV 07/13/17 10:15 (Lovenox Inj) 100 mg Q12H SQ 07/13/17 12:00 07/16/17 13:02 (Tylenol) 650 mg Q4H PRN PO 07/13/17 23:30 07/13/17 23:28 (Cordarone) 200 mg DAILY PO 07/14/17 09:00 08/13/17 09:00 07/16/17 08:59 (Entresto 24-26 Mg) 1 tab BID PO 07/14/17 09:00 07/16/17 09:00 Norepinephrine Bitartrate 4 mg/ Sodium Chloride 250 ml @ 7.5 mls/hr TITRATE PRN IV 07/14/17 17:30 07/14/17 17:45 (Brethine Inj) 1 mg UNSCH PRN SQ 07/14/17 17:30 Assessment and Plan Problem List: (1) Rapid atrial fibrillation ICD Codes: I48.91 - Unspecified atrial fibrillation Status: Acute Plan: In atrial flutter HR control Rate increases time to time Clot in LV not RA nor LA If stable,atrial flutter ablation will be considered for Wednesday Also defib will be inserted Case discussed extensively with patient (2) Acute on chronic systolic (congestive) heart failure ICD Codes: I50.23 - Acute on chronic systolic (congestive) heart failure Plan: Continue to improve. Of milrinone and levophed Creat improves continue with current meds ICD on Wednesday Chaka Mata MD Jul 16, 2017 14:50
[2017-07-16 15:00] VITALS: BP 79/51; PULSE 82; RESP 16; TEMP 98.2; O2SAT 99
[2017-07-16 17:36] LABS: BICARBONATE 33.1 MEQ/L (21.0-32.0); MAGNESIUM 2.8 MG/DL (1.5-2.5)
[2017-07-16 20:00] VITALS: BP 88/53; PULSE 80; RESP 16; TEMP 98.2; O2SAT 100
[2017-07-16 20:25] VITALS: O2SAT 97
[2017-07-17] VITALS (9 sets, daily range): BP systolic 83–102; BP diastolic 50–62; PULSE 78–90; RESP 16–18; TEMP 96.7–98.2; O2SAT 94–99
[2017-07-17] MEDS: ALBUTEROL SULFATE 2 MG TAB PO SCH ×3 (05:20→18:40)
--- NOTE | 2017-07-17 07:32 | HHI.CCPN ---
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 He had a massive [place] in November 2016 complicated by cardiogenic shock. EF markedly reduced at about 35%. Subsequently readmitted in February 2017 with unstable angina and systolic heart failure, EF 15 - 20% ranged. Required urgent CABG X 5 with recovery complicated by respiratory difficulties and heart failure. It is noteworthy that his left hemidiaphragm is chronically elevated, demonstrated on CXRs in November, months before his CABG. He comes in at this time with recurrent fluid overload and has been placed on milrinone by cardiology service. The initial response to diuretics has been excellent. He has developed a marked contraction alkalosis which will exacerbate potassium wasting - will improve with a dose or two of carbonic anhydrase inhibitor. 07/14: Nice response to bumex gtt, will reduce rate to 0.25 mg/hr and add albumin scheduled. Will allow mild prerenal azotemia and follow peripheral edema as a guide. Diamox X 1 for contraction alkalosis. Mag, K, phos replacement ongoing. He feels better. Milrinone was stopped earlier today but he became hypotensive and anuric. Will restart and back off on diuretic a little. 07/15: Became anuric after milrinone stopped yesterday with subsequent creatinine rise. Diuretic drip stopped and milrinone restarted with nice improvement in spontaneous urine output. Dependent edema persists. Patient insists on sitting up in a chair with legs dependent - states he gets bad leg cramps when legs are elevated. Electrolytes acceptable. Please feel free to taper inotropes and vasopressors however you like. He is breathing comfortably now. Diuretics still on hold. Restart at your discretion. 07/16: Fluid balance about even over past 24 hours. Probably need to restart diuretics. Breathing comfortably. 07/17: Sitting up in chair today, breathing comfortably. Fluid balance remains even. Lab and chest x-ray ordered pending at this time. Objective Vital Signs Date Time Temp Pulse Resp B/P (MAP) Pulse Ox O2 Delivery O2 Flow Rate FiO2 07/17/17 04:00 79 07/17/17 04:00 98.1 16 88/54 (65) 94 07/16/17 20:25 21 Intake and Output 07/17/17 07/17/17 07/18/17 08:00 16:00 00:00 Intake Total 480 ml Output Total 550 ml Balance -70 ml Result Diagram: 07/16/17 1650 Objective Remarks Gen: Pleasant Kim male sitting up in chair Head: Normocephalic Neck: Supple, airway widely patent. No JVD Lungs: Clear anteriorly, crackles in bases. No wheezes. Comfortable pattern. Heart: NL S1S2, no m,r. No JVD. Abdomen: Benign, soft. BS active. No guarding. Extremities: Warm, well perfused. 2+ tense edema both legs to knees-clinically improving Neuro: Alert, cooperative. M/S grossly intact. Alert, oriented X 3. Urinary Catheter: Yes Assessment to: Continue A/P Assessment and Plan Assessment: 1. Ischemic cardiomyopathy. 2. Dyspnea. 3. Fluid overload. 4. TREVOR. 5. SVT. 6. Contraction alkalosis. Plan: 1. Tapered off milrinone infusion. 2. Off Bumex, use intermittent T negative balance 3. Follow electrolytes closely. 4. Serial bedside ECHO as needed to assess fluid balance. 5. Follow renal function closely. 6. Electrolyte replacement protocol. 7. Elevate legs. 8. AICD Wednesday, QRS on EKG 140 (<150). May not benefit from [employer] 9. Currently on Lovenox 100 mg subcutaneous every 12, aspirin, Plavix, entresto , amiodarone, Lipitor 10. Will discuss with cardiology re: dual antiplatelet therapy plus therapeutic Lovenox 11. 2D Echo LVEF <20%, +ve LV thrombus Overall impression: Fluid balance being optimized for ICD insertion. Julian Khalil MD Jul 17, 2017 07:32
[2017-07-17 08:16] LABS: ANION GAP 11 MEQ/L (5-15); AST (GOT) 49 U/L (15-37); BICARBONATE 27.7 MEQ/L (21.0-32.0); BLOOD UREA NITROGEN 59 MG/DL (7-18); CHLORIDE 89 MEQ/L (98-107); GLOMERULAR FILTRATION RATE 45 ML/MIN (>89); MAGNESIUM 2.6 MG/DL (1.5-2.5); POTASSIUM 3.5 MEQ/L (3.5-5.1); SODIUM (NA) 128 MEQ/L (136-145)
[2017-07-17 08:17] LABS: ALT (GPT) 39 U/L (12-78)
[2017-07-17 08:20] LABS: ALKALINE PHOSPHATASE 151 U/L (45-117); TOTAL BILIRUBIN ADULT 1.5 MG/DL (0.2-1.0)
[2017-07-17] MEDS: SACUBITRIL/VALSARTAN 24 MG-26 MG TAB PO SCH ×2 (08:30→21:10)
[2017-07-17] MEDS: ATORVASTATIN 20 MG TAB PO SCH (08:30)
[2017-07-17] MEDS: ALLOPURINOL 100 MG TAB PO SCH (08:30)
[2017-07-17] MEDS: FLUTICASONE PROPIONATE 110 MCG/ACT 12 GM INHALER INH SCH ×2 (08:31→21:11)
[2017-07-17] MEDS: AMIODARONE 200 MG TAB PO SCH (08:31)
[2017-07-17] MEDS: ASPIRIN 81 MG CHEW TAB CHEW SCH (08:31)
[2017-07-17] MEDS: DOCUSATE SODIUM 100 MG CAP PO SCH ×2 (08:31→21:10)
[2017-07-17 09:24] LABS: AUTOMATED NEUTROPHIL # 2.4 TH/MM3 (1.8-7.7); BASOPHIL % 0.1 % (0.0-2.0); EOSINOPHIL # 0.3 TH/MM3 (0-0.4); EOSINOPHIL % 6.7 % (0.0-4.0); HEMATOCRIT 32.1 % (39.0-51.0); HEMO FLAGS DIFF FINAL; LYMPH % 21.9 % (9.0-44.0); LYMPHOCYTE # 0.9 TH/MM3 (1.0-4.8); MEAN CELL VOLUME 79.9 FL (80.0-100.0); MEAN CORPUSCULAR HEMOGLOBIN 26.2 PG (27.0-34.0); MEAN CORPUSCULAR HGB CONC 32.8 % (32.0-36.0); MONO % 11.4 % (0.0-8.0); NEUT % 59.9 % (16.0-70.0); PLATELET COUNT 351 TH/MM3 (150-450); RED BLOOD COUNT 4.02 MIL/MM3 (4.50-5.90); RED CELL DISTRIBUTION WIDTH 19.4 % (11.6-17.2)
--- NOTE | 2017-07-17 09:56 | RADRPT ---
EXAM DATE/TIME: 07/17/2017 08:38 [facility] COMPARISON: CHEST SINGLE AP, July 08, 2017, 18:32. INDICATIONS : Shortness of breath MEDICAL HISTORY : Myocardial infarction. Asthma SURGICAL HISTORY : CABG. Intra-aortic balloon pump ENCOUNTER: Subsequent ACUITY: 1 week PAIN SCORE: 0/10 LOCATION: Bilateral chest FINDINGS: Stable mild cardiomegaly with intact median sternotomy wires. There is a new rounded airspace consoli dation involving the right lower lobe. Stable elevation of the left hemidiaphragm with adjacent compr essive atelectasis. The lung apices are clear. Pulmonary vasculature appears normal in caliber. CONCLUSION: New rounded airspace consolidation involving the right lower lobe and correlate with symptoms of infe ction for pneumonia versus possible infarct. Estella Murray MD on July 17, 2017 at 9:53 Board Certified Radiologist. This report was verified electronically.
--- NOTE | 2017-07-17 10:35 | PD.CARD.PN ---
Subjective Subjective Remarks Feeling well, no sx. Objective Medications Administered Medications Medications (Trade) Dose Ordered Sig/Syed Route PRN Reason Start Time Stop Time Status Last Admin Dose Admin Allopurinol (Zyloprim) 100 mg DAILY PO 07/09/17 09:00 07/17/17 08:30 Aspirin (Aspirin Chew) 81 mg DAILY CHEW 07/09/17 09:00 07/17/17 08:31 Atorvastatin Calcium (Lipitor) 20 mg DAILY PO 07/09/17 09:00 07/17/17 08:30 Fluticasone Propionate (Flovent Hfa 110 Mcg Inh) 1 puff BID INH 07/08/17 21:00 07/17/17 08:31 Albuterol Sulfate (Proventil) 2 mg Q6HR PO 07/08/17 18:00 07/17/17 05:20 Docusate Sodium (Colace) 100 mg BID PO 07/11/17 13:00 07/17/17 08:31 Potassium Chloride 100 ml @ 50 mls/hr Q2H PRN IV For Potassium 2.8 - 3.2 mEq/L 07/13/17 10:15 07/15/17 09:20 Potassium Bicarb/ Potassium Chloride (K-Lyte Cl Eff) 50 meq UNSCH PRN PO For Potassium 3.3 - 3.5 mEq/L 07/13/17 10:15 07/13/17 21:45 Potassium Chloride 100 ml @ 50 mls/hr Q2H PRN IV For Potassium 3.3 - 3.5 mEq/L 07/13/17 10:15 07/16/17 09:43 Magnesium Sulfate 2 gm/Sodium Chloride 100 ml @ 50 mls/hr UNSCH PRN IV For Magnesium 1.2 - 1.6 mg/dL 07/13/17 10:15 07/15/17 00:09 Enoxaparin Sodium (Lovenox Inj) 100 mg Q12H SQ 07/13/17 12:00 07/18/17 18:00 07/16/17 23:12 Acetaminophen (Tylenol) 650 mg Q4H PRN PO PAIN 07/13/17 23:30 07/13/17 23:28 Amiodarone HCl (Cordarone) 200 mg DAILY PO 07/14/17 09:00 08/13/17 09:00 07/17/17 08:31 Sacubitril/ Valsartan (Entresto 24-26 Mg) 1 tab BID PO 07/14/17 09:00 07/17/17 08:30 Norepinephrine Bitartrate 4 mg/ Sodium Chloride 250 ml @ 7.5 mls/hr TITRATE PRN IV Blood pressure management 07/14/17 17:30 07/14/17 17:45 Vital Signs / I&O Vital Signs Date Time Temp Pulse Resp B/P (MAP) Pulse Ox O2 Delivery O2 Flow Rate FiO2 07/17/17 08:24 99 Nasal Cannula 3.00 07/17/17 08:00 80 07/17/17 08:00 97.9 80 16 92/62 (72) 99 07/17/17 04:00 79 07/17/17 04:00 98.1 79 16 88/54 (65) 94 07/17/17 00:00 79 07/17/17 00:00 98.0 79 16 83/50 (61) 99 07/16/17 20:25 97 21 07/16/17 20:00 98.2 80 16 88/53 (65) 100 07/16/17 20:00 80 07/16/17 15:00 98.2 82 16 79/51 (60) 99 07/16/17 15:00 82 07/16/17 11:00 98.0 82 16 84/57 (66) 99 07/16/17 11:00 82 I/O 07/16/17 07/16/17 07/16/17 07/17/17 07/17/17 07/17/17 07:00 15:00 23:00 07:00 15:00 23:00 Intake Total 665 ml 100 ml 800 ml 480 ml Output Total 1340 ml 630 ml 550 ml Balance -675 ml 100 ml 170 ml -70 ml Intake Oral 480 ml 800 ml 480 ml IV Total 185 ml 100 ml Output Urine Total 1340 ml 630 ml 550 ml # Bowel Movements 1 1 0 Physical Exam GENERAL: This is a well-nourished, well-developed patient, in no apparent distress. CARDIOVASCULAR: Regular rate and irregular rhythm without murmurs, gallops, or rubs. RESPIRATORY: Clear to auscultation. Breath sounds equal bilaterally. No wheezes , rales, or rhonchi. GASTROINTESTINAL: Abdomen soft, non-tender, nondistended. Normal, active bowel sounds MUSCULOSKELETAL: Extremities trace to 1+ edema bilat NEURO: Alert & Oriented x4 to person, place, time, situation. Moves all ext x4 Laboratory Laboratory Tests Test 07/16/17 16:50 07/17/17 05:54 07/17/17 09:02 Blood Urea Nitrogen 59 MG/DL 59 MG/DL Creatinine 1.64 MG/DL 1.84 MG/DL Random Glucose 78 MG/DL 107 MG/DL Calcium Level 8.4 MG/DL 8.5 MG/DL Phosphorus Level 3.2 MG/DL Magnesium Level 2.8 MG/DL 2.6 MG/DL Sodium Level 129 MEQ/L 128 MEQ/L Potassium Level 4.0 MEQ/L 3.5 MEQ/L Chloride Level 89 MEQ/L 89 MEQ/L Carbon Dioxide Level 33.1 MEQ/L 27.7 MEQ/L Anion Gap 7 MEQ/L 11 MEQ/L Estimat Glomerular Filtration Rate 51 ML/MIN 45 ML/MIN Total Protein 7.2 GM/DL Albumin 3.6 GM/DL Alkaline Phosphatase 151 U/L Aspartate Amino Transf (AST/SGOT) 49 U/L Alanine Aminotransferase (ALT/SGPT) 39 U/L Total Bilirubin 1.5 MG/DL White Blood Count 4.0 TH/MM3 Red Blood Count 4.02 MIL/MM3 Hemoglobin 10.5 GM/DL Hematocrit 32.1 % Mean Corpuscular Volume 79.9 FL Mean Corpuscular Hemoglobin 26.2 PG Mean Corpuscular Hemoglobin Concent 32.8 % Red Cell Distribution Width 19.4 % Platelet Count 351 TH/MM3 Mean Platelet Volume 8.9 FL Neutrophils (%) (Auto) 59.9 % Lymphocytes (%) (Auto) 21.9 % Monocytes (%) (Auto) 11.4 % Eosinophils (%) (Auto) 6.7 % Basophils (%) (Auto) 0.1 % Neutrophils # (Auto) 2.4 TH/MM3 Lymphocytes # (Auto) 0.9 TH/MM3 Monocytes # (Auto) 0.5 TH/MM3 Eosinophils # (Auto) 0.3 TH/MM3 Basophils # (Auto) 0.0 TH/MM3 CBC Comment DIFF FINAL Differential Comment Imaging Last Impressions Chest X-Ray 07/08/17 0000 Signed Impressions: Service Date/Time: June 18:32 - CONCLUSION: 1. No evidence of failure or pneumonia. 2. Mild compensated cardiomegaly. 3. Mild left base atelectasis. Elevated left hemidiaphragm again seen. Remi Beebe MD Assessment and Plan Problem List: (1) Rapid atrial fibrillation ICD Codes: I48.91 - Unspecified atrial fibrillation Status: Acute Plan: good flutter rates currently (2) CAD in [place] artery ICD Codes: I25.10 - Atherosclerotic heart disease of [place] coronary artery without angina pectoris Status: Chronic (3) Cardiomyopathy ICD Codes: I42.9 - Cardiomyopathy, unspecified Status: Acute Plan: on entresto, amio, given nsvt plan is for aicd next week. (4) Acute on chronic systolic (congestive) heart failure ICD Codes: I50.23 - Acute on chronic systolic (congestive) heart failure (5) CKD (chronic kidney disease) ICD Codes: N18.9 - Chronic kidney disease, unspecified Epifanio Braswell MD Jul 17, 2017 10:35
[2017-07-17] MEDS: ENOXAPARIN SODIUM 100 MG/ML SYRINGE SQ SCH (11:53)
[2017-07-17] MEDS ORDERED: POTASSIUM CHLORIDE 20 MEQ CONTROLLED RELEASE TAB PO ONE (12:00)
[2017-07-18] VITALS (8 sets, daily range): BP systolic 76–88; BP diastolic 48–58; PULSE 76–89; RESP 12–20; TEMP 97.5–98.7; O2SAT 90–99
[2017-07-18] MEDS: ENOXAPARIN SODIUM 100 MG/ML SYRINGE SQ SCH ×2 (01:52→12:00)
[2017-07-18] MEDS: ALBUTEROL SULFATE 2 MG TAB PO SCH ×3 (01:52→17:12)
[2017-07-18] MEDS: ACETAMINOPHEN 325 MG TAB PO PRN (01:53)
--- NOTE | 2017-07-18 05:56 | RADRPT ---
EXAM DATE/TIME: 07/18/2017 05:12 [facility] COMPARISON: CHEST SINGLE AP, July 17, 2017, 8:38. INDICATIONS : Shortness of breath, possible pulmonary disease. MEDICAL HISTORY : Myocardial infarction. Asthma SURGICAL HISTORY : CABG. ENCOUNTER: Subsequent ACUITY: 1 week PAIN SCORE: 0/10 LOCATION: Bilateral chest FINDINGS: A single view of the chest demonstrates postoperative median sternotomy. Cardiomegaly. Elevated left hemidiaphragm. Basilar airspace disease similar to July 17 CONCLUSION: 1. Basilar airspace disease and elevated left hemidiaphragm similar to July 17. Cardiomegaly. Dominic Bowen MD on July 18, 2017 at 5:52 Board Certified Radiologist. This report was verified electronically.
--- NOTE | 2017-07-18 07:14 | HHI.CCPN ---
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 He had a massive AR in November 2016 complicated by cardiogenic shock. EF markedly reduced at about 35%. Subsequently readmitted in February 2017 with unstable angina and systolic heart failure, EF 15 - 20% ranged. Required urgent CABG X 5 with recovery complicated by respiratory difficulties and heart failure. It is noteworthy that his left hemidiaphragm is chronically elevated, demonstrated on CXRs in November, months before his CABG. He comes in at this time with recurrent fluid overload and has been placed on milrinone by cardiology service. The initial response to diuretics has been excellent. He has developed a marked contraction alkalosis which will exacerbate potassium wasting - will improve with a dose or two of carbonic anhydrase inhibitor. 07/14: Nice response to bumex gtt, will reduce rate to 0.25 mg/hr and add albumin scheduled. Will allow mild prerenal azotemia and follow peripheral edema as a guide. Diamox X 1 for contraction alkalosis. Mag, K, phos replacement ongoing. He feels better. Milrinone was stopped earlier today but he became hypotensive and anuric. Will restart and back off on diuretic a little. 07/15: Became anuric after milrinone stopped yesterday with subsequent creatinine rise. Diuretic drip stopped and milrinone restarted with nice improvement in spontaneous urine output. Dependent edema persists. Patient insists on sitting up in a chair with legs dependent - states he gets bad leg cramps when legs are elevated. Electrolytes acceptable. Please feel free to taper inotropes and vasopressors however you like. He is breathing comfortably now. Diuretics still on hold. Restart at your discretion. 07/16: Fluid balance about even over past 24 hours. Probably need to restart diuretics. Breathing comfortably. 07/17: Sitting up in chair today, breathing comfortably. Fluid balance remains even. Lab and chest x-ray ordered pending at this time. 07/18: Breathing comfortably talking in full sentences. Urine output 1.3 L in 24 hours, slightly negative fluid balance today. Plan for AICD in a.m. Appears not a candidate for PLANER OFF BEARER (QRS 140ms). After discussion with Dr. Alvarez and have discontinued Plavix yesterday, due to significantly increased risk of bleeding with dual antiplatelet therapy and full anticoagulation Objective Vital Signs Date Time Temp Pulse Resp B/P (MAP) Pulse Ox O2 Delivery O2 Flow Rate FiO2 07/18/17 03:00 98.3 76 20 76/48 (57) 98 07/17/17 22:30 Nasal Cannula 3.00 07/16/17 20:25 21 Intake and Output 07/18/17 07/18/17 07/19/17 08:00 16:00 00:00 Intake Total 720 ml Output Total 400 ml Balance 320 ml Result Diagram: 07/17/17 0902 07/17/17 0554 Objective Remarks Gen: Pleasant Kim male sitting up in chair Head: Normocephalic, atraumatic Neck: Supple, airway widely patent. No JVD Lungs: Clear anteriorly, crackles in bases. No wheezes. Comfortable pattern. Heart: NL S1S2, no m,r. No JVD. Abdomen: Benign, soft. BS active. No guarding. Extremities: Warm, well perfused. 2+ tense edema both legs to knees Neuro: Alert, cooperative. M/S grossly intact. Alert, oriented X 3. No focal deficits A/P Assessment and Plan Assessment: 1. Ischemic cardiomyopathy. 2. Acute on chronic systolic heart failure, NYHA class IV heart failure 3. Fluid overload. 4. TREVOR. 5. NSVT. 6. Contraction alkalosis. Plan: - Had been off milrinone milrinone infusion. Off Bumex, use intermittently to achieve negative balance - Follow electrolytes closely. Follow renal function closely. - Serial bedside ECHO as needed to assess fluid balance. - Electrolyte replacement protocol. - AICD Wednesday, QRS on EKG 140 (<150). May not benefit from PLANER OFF BEARER - Currently on Lovenox 100 mg subcutaneous every 12, aspirin, Plavix, entresto, amiodarone, Lipitor - Discussed with cardiology, Dr. Alvarez re:increased risk of bleeding from dual antiplatelet therapy plus therapeutic Lovenox. - Plavix DCd 07/17/17, continue aspirin and therapeutic anticoagulation (BMS in nov 2016) - 2D Echo LVEF <20%, +ve LV thrombus - Elevate legs. Overall impression: Fluid balance being optimized for ICD insertion. Will discuss with primary cardiology service whether patient is a cardiac transplant candidate Level 2 Julian Khalil MD Jul 18, 2017 07:14
[2017-07-18 08:07] LABS: AUTOMATED NEUTROPHIL # 1.7 TH/MM3 (1.8-7.7); BASOPHIL # 0.1 TH/MM3 (0-0.2); BASOPHIL % 1.9 % (0.0-2.0); EOSINOPHIL # 0.2 TH/MM3 (0-0.4); HEMATOCRIT 30.7 % (39.0-51.0); HEMO FLAGS DIFF FINAL; LYMPH % 27.8 % (9.0-44.0); LYMPHOCYTE # 0.9 TH/MM3 (1.0-4.8); MEAN CELL VOLUME 80.3 FL (80.0-100.0); MEAN CORPUSCULAR HGB CONC 32.4 % (32.0-36.0); MONO % 12.8 % (0.0-8.0); NEUT % 50.5 % (16.0-70.0); PLATELET COUNT 215 TH/MM3 (150-450); RED BLOOD COUNT 3.82 MIL/MM3 (4.50-5.90); RED CELL DISTRIBUTION WIDTH 19.2 % (11.6-17.2); WHITE BLOOD COUNT 3.4 TH/MM3 (4.0-11.0)
[2017-07-18 08:22] LABS: ALT (GPT) 43 U/L (12-78); ANION GAP 9 MEQ/L (5-15); AST (GOT) 46 U/L (15-37); BICARBONATE 31.3 MEQ/L (21.0-32.0); BLOOD UREA NITROGEN 68 MG/DL (7-18); CHLORIDE 89 MEQ/L (98-107); GLOMERULAR FILTRATION RATE 38 ML/MIN (>89); MAGNESIUM 2.7 MG/DL (1.5-2.5); POTASSIUM 3.9 MEQ/L (3.5-5.1); SODIUM (NA) 129 MEQ/L (136-145)
[2017-07-18 08:24] LABS: ALKALINE PHOSPHATASE 144 U/L (45-117); TOTAL BILIRUBIN ADULT 1.4 MG/DL (0.2-1.0)
[2017-07-18] MEDS: SACUBITRIL/VALSARTAN 24 MG-26 MG TAB PO SCH ×2 (09:00→20:53)
[2017-07-18] MEDS ORDERED: ALBUMIN HUMAN 25% 25 GM/100 ML BAGP IV ONE (09:52)
--- NOTE | 2017-07-18 09:53 | PD.CARD.PN ---
Subjective Subjective Remarks Good rates, no complaints. Objective Medications Administered Medications Medications (Trade) Dose Ordered Sig/Syed Route PRN Reason Start Time Stop Time Status Last Admin Dose Admin Allopurinol (Zyloprim) 100 mg DAILY PO 07/09/17 09:00 07/17/17 08:30 Aspirin (Aspirin Chew) 81 mg DAILY CHEW 07/09/17 09:00 07/17/17 08:31 Atorvastatin Calcium (Lipitor) 20 mg DAILY PO 07/09/17 09:00 07/17/17 08:30 Fluticasone Propionate (Flovent Hfa 110 Mcg Inh) 1 puff BID INH 07/08/17 21:00 07/17/17 21:11 Albuterol Sulfate (Proventil) 2 mg Q6HR PO 07/08/17 18:00 07/18/17 06:45 Docusate Sodium (Colace) 100 mg BID PO 07/11/17 13:00 07/17/17 21:10 Potassium Chloride 100 ml @ 50 mls/hr Q2H PRN IV For Potassium 2.8 - 3.2 mEq/L 07/13/17 10:15 07/15/17 09:20 Potassium Bicarb/ Potassium Chloride (K-Lyte Cl Eff) 50 meq UNSCH PRN PO For Potassium 3.3 - 3.5 mEq/L 07/13/17 10:15 07/13/17 21:45 Potassium Chloride 100 ml @ 50 mls/hr Q2H PRN IV For Potassium 3.3 - 3.5 mEq/L 07/13/17 10:15 07/16/17 09:43 Magnesium Sulfate 2 gm/Sodium Chloride 100 ml @ 50 mls/hr UNSCH PRN IV For Magnesium 1.2 - 1.6 mg/dL 07/13/17 10:15 07/15/17 00:09 Enoxaparin Sodium (Lovenox Inj) 100 mg Q12H SQ 07/13/17 12:00 07/18/17 18:00 07/18/17 01:52 Acetaminophen (Tylenol) 650 mg Q4H PRN PO PAIN 07/13/17 23:30 07/18/17 01:53 Amiodarone HCl (Cordarone) 200 mg DAILY PO 07/14/17 09:00 08/13/17 09:00 07/17/17 08:31 Sacubitril/ Valsartan (Entresto 24-26 Mg) 1 tab BID PO 07/14/17 09:00 07/17/17 21:10 Norepinephrine Bitartrate 4 mg/ Sodium Chloride 250 ml @ 7.5 mls/hr TITRATE PRN IV Blood pressure management 07/14/17 17:30 07/14/17 17:45 Vital Signs / I&O Vital Signs Date Time Temp Pulse Resp B/P (MAP) Pulse Ox O2 Delivery O2 Flow Rate FiO2 07/18/17 03:00 98.3 76 20 76/48 (57) 98 07/18/17 03:00 76 07/17/17 23:00 78 07/17/17 23:00 97.9 80 18 97/62 (74) 99 07/17/17 22:30 95 Nasal Cannula 3.00 07/17/17 19:00 80 07/17/17 19:00 98.2 80 18 101/57 (72) 98 07/17/17 15:00 80 07/17/17 15:00 96.8 90 16 85/54 (64) 99 07/17/17 11:00 96.7 90 16 102/57 (72) 99 07/17/17 11:00 90 I/O 07/17/17 07/17/17 07/17/17 07/18/17 07/18/17 07/18/17 07:00 15:00 23:00 07:00 15:00 23:00 Intake Total 480 ml 1140 ml 720 ml Output Total 550 ml 890 ml 400 ml Balance -70 ml 250 ml 320 ml Intake Oral 480 ml 1140 ml 720 ml IV Total 0 ml Output Urine Total 550 ml 890 ml 400 ml Stool Total 0 ml # Bowel Movements 0 1 2 Physical Exam GENERAL: This is a well-nourished, well-developed patient, in no apparent distress. CARDIOVASCULAR: Regular rate and irregular rhythm without murmurs, gallops, or rubs. RESPIRATORY: Clear to auscultation. Breath sounds equal bilaterally. No wheezes , rales, or rhonchi. GASTROINTESTINAL: Abdomen soft, non-tender, nondistended. Normal, active bowel sounds MUSCULOSKELETAL: Extremities trace to 1+ edema bilat NEURO: Alert & Oriented x4 to person, place, time, situation. Moves all ext x4 Laboratory Laboratory Tests Test 07/18/17 07:32 White Blood Count 3.4 TH/MM3 Red Blood Count 3.82 MIL/MM3 Hemoglobin 9.9 GM/DL Hematocrit 30.7 % Mean Corpuscular Volume 80.3 FL Mean Corpuscular Hemoglobin 26.0 PG Mean Corpuscular Hemoglobin Concent 32.4 % Red Cell Distribution Width 19.2 % Platelet Count 215 TH/MM3 Mean Platelet Volume 8.2 FL Neutrophils (%) (Auto) 50.5 % Lymphocytes (%) (Auto) 27.8 % Monocytes (%) (Auto) 12.8 % Eosinophils (%) (Auto) 7.0 % Basophils (%) (Auto) 1.9 % Neutrophils # (Auto) 1.7 TH/MM3 Lymphocytes # (Auto) 0.9 TH/MM3 Monocytes # (Auto) 0.4 TH/MM3 Eosinophils # (Auto) 0.2 TH/MM3 Basophils # (Auto) 0.1 TH/MM3 CBC Comment DIFF FINAL Differential Comment Blood Urea Nitrogen 68 MG/DL Creatinine 2.12 MG/DL Random Glucose 102 MG/DL Total Protein 7.2 GM/DL Albumin 3.6 GM/DL Calcium Level 8.1 MG/DL Magnesium Level 2.7 MG/DL Alkaline Phosphatase 144 U/L Aspartate Amino Transf (AST/SGOT) 46 U/L Alanine Aminotransferase (ALT/SGPT) 43 U/L Total Bilirubin 1.4 MG/DL Sodium Level 129 MEQ/L Potassium Level 3.9 MEQ/L Chloride Level 89 MEQ/L Carbon Dioxide Level 31.3 MEQ/L Anion Gap 9 MEQ/L Estimat Glomerular Filtration Rate 38 ML/MIN Imaging Last Impressions Chest X-Ray 07/17/17 0000 Signed Impressions: Service Date/Time: Monday, July 17, 2017 08:38 - CONCLUSION: New rounded airspace consolidation involving the right lower lobe and correlate with symptoms of infection for pneumonia versus possible infarct. Estella Murray MD Assessment and Plan Problem List: (1) Rapid atrial fibrillation ICD Codes: I48.91 - Unspecified atrial fibrillation Status: Acute Plan: good flutter rates currently (2) CAD in [place] artery ICD Codes: I25.10 - Atherosclerotic heart disease of [place] coronary artery without angina pectoris Status: Chronic (3) Cardiomyopathy ICD Codes: I42.9 - Cardiomyopathy, unspecified Status: Acute Plan: on entresto, amio, given nsvt plan is for aicd this week, ? tomorrow, pt will be npo past midnight and lovenox held (4) Acute on chronic systolic (congestive) heart failure ICD Codes: I50.23 - Acute on chronic systolic (congestive) heart failure Plan: compensated (5) CKD (chronic kidney disease) ICD Codes: N18.9 - Chronic kidney disease, unspecified Assessment and Plan Adolfo Jackson will return tomorrow to resume care. Epifanio Braswell MD Jul 18, 2017 09:53
[2017-07-18] MEDS: ALLOPURINOL 100 MG TAB PO SCH (09:57)
[2017-07-18] MEDS: ATORVASTATIN 20 MG TAB PO SCH (09:58)
[2017-07-18] MEDS: AMIODARONE 200 MG TAB PO SCH (09:58)
[2017-07-18] MEDS: ASPIRIN 81 MG CHEW TAB CHEW SCH (09:58)
--- NOTE | 2017-07-18 09:58 | RADRPT ---
EXAM DATE/TIME: 07/18/2017 08:49 [facility] COMPARISON: No previous studies available for comparison. INDICATIONS : Renal failure. MEDICAL HISTORY : Myocardial infarction. Hypercholesterolemia. Cardiac disorders. Chest pain. Asthma. Dyspnea. Back p roblems. MRSA. SURGICAL HISTORY : CABG. ENCOUNTER: Initial ACUITY: 1 day PAIN SCORE: 0/10 LOCATION: Bilateral flank MEASUREMENTS: RIGHT KIDNEY: 9.9 x 4.5 x 5.0 cm LEFT KIDNEY: 9.3 x 2.9 x 4.9 cm FINDINGS: RIGHT KIDNEY: Renal cortex is normal in thickness and echotexture. No hydronephrosis, stone, or mass. Trace free fluid identified within Combs's pouch. LEFT KIDNEY: The left kidney is poorly visualized due to patient body habitus and bowel gas shadowing but appears grossly normal in size without evidence of hydronephrosis. BLADDER: Decompressed. Madsen catheter balloon is seen within the lumen. CONCLUSION: There is trace free fluid seen within Combs's pouch. The kidneys appear grossly normal although th e left kidney is limited in visualization secondary to patient body habitus. Estella Murray MD on July 18, 2017 at 9:55 Board Certified Radiologist. This report was verified electronically.
[2017-07-18] MEDS: FLUTICASONE PROPIONATE 110 MCG/ACT 12 GM INHALER INH SCH ×2 (10:01→21:35)
[2017-07-18] MEDS: DOCUSATE SODIUM 100 MG CAP PO SCH ×2 (10:01→21:00)
--- NOTE | 2017-07-18 14:41 | RADRPT ---
EXAM DATE/TIME: 07/18/2017 14:10 [facility] COMPARISON: Prior study earlier in day. INDICATIONS : Hemoptysis MEDICAL HISTORY : Myocardial infarction. Asthma SURGICAL HISTORY : CABG. ENCOUNTER: Subsequent ACUITY: 1 week PAIN SCORE: 0/10 LOCATION: Chest FINDINGS: A single view of the chest demonstrates there is a persistent infiltrate or mass in the right lower l obe. There is no pneumothorax. Left hemidiaphragm is elevated. Clips and wires suggest CABG. CONCLUSION: Persistent infiltrate or rounded mass in the right lower lobe. Adebayo Carrera MD on July 18, 2017 at 14:30 Board Certified Radiologist. This report was verified electronically.
[2017-07-18] MEDS ORDERED: SODIUM CHLOR 0.9% 250 ML INJ 250 ML IV ONE (14:45)
[2017-07-18 17:00] LABS: MEAN CELL VOLUME 80.7 FL (80.0-100.0); MEAN CORPUSCULAR HEMOGLOBIN 26.1 PG (27.0-34.0); MEAN CORPUSCULAR HGB CONC 32.3 % (32.0-36.0); PLATELET COUNT 218 TH/MM3 (150-450); RED BLOOD COUNT 3.96 MIL/MM3 (4.50-5.90); RED CELL DISTRIBUTION WIDTH 19.1 % (11.6-17.2); REVIEW FLAG FINAL; WHITE BLOOD COUNT 3.5 TH/MM3 (4.0-11.0)
[2017-07-18] MEDS: CEFEPIME INJ 2,000 MG in SODIUM CHLORIDE 0.9% INJ 100 ML IV SCH (17:10)
[2017-07-18 17:13] LABS: INTERNATIONAL NORMALIZED RATIO 1.1 RATIO; PROTHROMBIN TIME - PATIENT 12.3 SEC (9.8-11.6)
--- NOTE | 2017-07-18 17:21 | RADRPT ---
EXAM DATE/TIME: 07/18/2017 16:41 [facility] COMPARISON: CHEST SINGLE AP, February 23, 2017, 14:09. CHEST SINGLE AP, December 02, 2016, 4:18. CHEST SINGLE AP, 2016, 3:11. CHEST SINGLE AP, February 24, 2017, 5:06. CHEST SINGLE AP, July 08, 2017, 18 :32. CHEST SINGLE AP, July 17, 2017, 8:38. CHEST SINGLE AP, July 18, 2017, 5:12. CHEST SIN GLE AP, July 18, 2017, 14:10. US KIDNEY/RENAL/BLADDER, July 18, 2017, 8:49. INDICATIONS : Infiltrate, infarct and hemorrhage evaluation. RADIATION DOSE: 9.89 CTDIvol (mGy) MEDICAL HISTORY : Cardiovascular disease. Afib; CHF SURGICAL HISTORY : CABG ENCOUNTER: Initial ACUITY: 1 day PAIN SCALE: 0/10 LOCATION: Bilateral chest TECHNIQUE: Volumetric scanning of the chest was performed. Using automated exposure control and adjustment of t he mA and/or kV according to patient size, radiation dose was kept as low as reasonably achievable to obtain optimal diagnostic quality images. DICOM format image data is available electronically for r eview and comparison. Follow-up recommendations for detected pulmonary nodules are based at a minimum on nodule size and pa tient risk factors according to Fleischner Society Guidelines. FINDINGS: LUNGS: There are multiple abnormalities throughout both lungs. The largest abnormality is a masslike densit y in the right lower lung measuring 3.7 x 2.5 cm and with several adjacent satellite lesions which me asure up to 2.9 cm. In the parenchyma between these multiple masses, there is a increased ground sub stance airspace opacity. The entire area of involvement in the right lower lung measures in excess o f 10 cm and the conglomerate of findings in the right lower lung explain the opacity seen on the ches t x-ray. Scattered throughout both lungs are numerous subcentimeter nodules which are noncalcified. Most of the nodules have ill-defined, blurred, margins. There is one nodule near the pleura in the lateral left lung, measuring 5 mm, which is sharp margins. There is segmental consolidation without air bronchograms in the lower left lung and triangular-shaped infiltrate in the medial left lower lavelle g with some air bronchograms. PLEURAE: There is no pleural thickening or pleural effusion. MEDIASTINUM: Several mildly enlarged mediastinal lymph nodes include azygos node (2.0 cm), adjacent to the aortic arch (2.5 cm), and subcarinal (2.4 cm). AXILLAE: Bilateral mildly prominent axillary lymph nodes involving level I and level II groups bilaterally and level I,II, and III groups on the right side measure up to 2.5 cm. MUSCULOSKELETAL: No sclerotic or destructive lesions seen. Prior median sternotomy. MISCELLANEOUS: Supraclavicular region is not included in the [id number] and neither adrenal gland is included in the [id number]. CONCLUSION: Abnormal study demonstrating multifocal pulmonary parenchymal abnormalities with numerous subcentimet er nodules and a conglomerate opacity in the right lower lung which contains several masses devoid of air bronchograms with interspersed air space opacity. There is also evidence of middle mediastinal and bilateral hilar adenopathy. The multifocal nature of the finding suggests a hematogenous process , possibly with superimposed hemorrhage. Aeblardo Yuen MD on July 18, 2017 at 16:53 Board Certified Radiologist. This report was verified electronically.
[2017-07-18] MEDS ORDERED: Vancomycin Consult Pharmacy 1 EA OTHER SCH (17:30)
[2017-07-18] MEDS ORDERED: VANCOMYCIN INJ 1,000 MG in SODIUM CHLOR 0.9% 250 ML INJ 250 ML IV ONE (17:30)
[2017-07-18] MEDS ORDERED: RESP: ALBUTEROL 1.25 MG/3 ML NEB (PRN) NEB (18:15)
--- NOTE | 2017-07-18 20:07 | MB ---
cc: ADAM PULIDO DATE OF CONSULTATION 07/18/2017 REASON FOR CONSULTATION Hemoptysis and respiratory distress and lung nodules. HISTORY OF THE PRESENT ILLNESS This is a 66-year-old man with a history of shortness of breath and a prior history of coronary artery disease status post coronary artery bypass grafting 6 months ago, was admitted with a history of CHF and ejection fraction of 15-20%. The patient has been evaluated by Dr. Mata and had an episode of ventricular arrhythmia and was being scheduled to have an AICD placed this week. The patient meanwhile had been on anticoagulation including full dose Lovenox and Plavix as well as aspirin. A chest x-ray during this admission this past week showed no active infiltrates. The patient apparently had two episodes of hemoptysis earlier today which were bright red and he had some gurgling sensation in his chest as well. He then was sent for a CT scan of the chest. The CT chest done earlier today showed multiple pulmonary nodules and a larger density in the right lower lobe associated with some infiltrative area around it suggestive of possible associated hemorrhage. The patient is presently not short of breath. He is off oxygen and his saturation is 96%. Denies any chest pains. Denies any abdominal pains, nausea, vomiting or aspiration. He has had some chronic leg swelling for which he takes diuretics. PAST MEDICAL HISTORY The patient's past history is significant for: 1. Asthma as a child. 2. And he has had bronchitis in the past. 3. But had a history of coronary artery disease with a myocardial infarction. 4. History of systolic heart failure. 5. He has had CABG times four November of this year. 6. The patient did have a history of cataract repair. 7. History of hyperlipidemia. Denies any history of pneumonia. No history of diabetes or hypertension. ALLERGIES TO IOHEXOL, GADODIAMIDE, DIATRIZOATE MEGLUMINE. SOCIAL HISTORY Habits, the patient smoked three of four cigarettes per day for about 25 years and then quit. No significant alcohol use. He works at [employer]. FAMILY HISTORY Essentially noncontributory. There is a history of hypertension. FAMILY HISTORY Noncontributory. MEDICATIONS List: 1. Lasix 40 mg b.i.d. 2. Potassium chloride 20 mEq b.i.d. 3. Amiodarone 400 milligrams daily. 4. Allopurinol 100 milligrams daily. 5. Aspirin one daily. 6. Atorvastatin 20 milligrams daily. 7. Plavix 75 milligrams daily. REVIEW OF SYSTEMS System review, the patient is overweight. He has leg swelling. He has mild shortness of breath with exertion. No chest pain. No abdominal pain. No urinary symptoms. He has had joint pains of his extremities. Denies depression or anxiety. PHYSICAL EXAMINATION GENERAL: This moderately overweight elderly -Canadian male who is alert and in no acute distress. Mild pallor. No cyanosis or icterus or lymphadenopathy. VITAL SIGNS: Blood pressure is 96/60, pulse is 80, respirations are 18, temperature 98.5. HEENT: Head normocephalic. Pupils are reactive. Tongue moist. Throat is clear. Nasal mucosa injected. NECK: Supple. No bruits or thyroid enlargement. Mild venous distension. CHEST: Decreased excursions with occasional basilar crackles and a few wheezes anteriorly. CARDIOVASCULAR: Heart sounds are regular S1-S2 with no murmur or S3. ABDOMEN: The abdomen is soft, obese without masses. No organomegaly or tenderness. Bowel sounds are active. EXTREMITIES: Edema 1+. Decreased peripheral pulses. No calf tenderness. Reflexes are 1+ with no gross motor deficits. Cranial nerves grossly intact. SKIN: Showed some abrasions in the lower extremities. IMPRESSION 1. Bilateral lung nodules, etiology to be determined. 2. Pulmonary hemorrhage due to recent anticoagulation. 3. Systolic heart failure, history of. 4. History of CABG x5. 5. History of asthma. PLAN The patient was advised that a CT-guided needle biopsy of the lung nodule in the right lower lung will be arranged. We will also get a pulmonary function study at the bedside. Nebulized albuterol solution added q.6h p.r.n. Continue with his diuretic therapy as ordered. LUIS level will be obtained and a blood gas study will be done as well. If the needle aspiration is inconclusive further evaluation including a bronchoscopy could be done. I will discuss case with you Dr. Khalil. Thank you for this consultation. MD TEJAS Baig/JUAN JOSE /6:04 PM /7:31 PM
[2017-07-18] MEDS: VANCOMYCIN 1,500 MG/NS 500 ML IV SCH ×2 (20:53)
[2017-07-19] VITALS (11 sets, daily range): BP systolic 88–109; BP diastolic 55–66; PULSE 78–82; RESP 15–20; TEMP 97.6–98.3; O2SAT 92–98
[2017-07-19] MEDS: ALBUTEROL SULFATE 2 MG TAB PO SCH ×4 (01:07→18:00)
[2017-07-19] MEDS: CEFEPIME INJ 2,000 MG in SODIUM CHLORIDE 0.9% INJ 100 ML IV SCH ×2 (05:24→17:45)
[2017-07-19 06:13] LABS: ALT (GPT) 42 U/L (12-78); ANION GAP 9 MEQ/L (5-15); AST (GOT) 39 U/L (15-37); BICARBONATE 27.3 MEQ/L (21.0-32.0); BLOOD UREA NITROGEN 69 MG/DL (7-18); CHLORIDE 93 MEQ/L (98-107); GLOMERULAR FILTRATION RATE 53 ML/MIN (>89); POTASSIUM 3.9 MEQ/L (3.5-5.1); SODIUM (NA) 129 MEQ/L (136-145)
[2017-07-19 06:15] LABS: ALKALINE PHOSPHATASE 138 U/L (45-117); TOTAL BILIRUBIN ADULT 1.5 MG/DL (0.2-1.0)
--- NOTE | 2017-07-19 07:55 | PD.CARD.PN ---
Subjective Subjective Remarks denies CV complaints (Gera Garvin) Objective Vital Signs / I&O Vital Signs Date Time Temp Pulse Resp B/P (MAP) Pulse Ox O2 Delivery O2 Flow Rate FiO2 07/19/17 07:41 95 21 07/19/17 03:00 98.3 78 16 93/57 (69) 96 07/19/17 03:00 78 07/18/17 23:00 98.0 89 12 87/58 (68) 90 07/18/17 23:00 85 07/18/17 21:38 94 21 07/18/17 19:00 98.3 77 16 88/56 (67) 96 07/18/17 19:00 87 07/18/17 15:00 77 07/18/17 15:00 97.5 77 16 78/48 (58) 99 07/18/17 11:00 98.7 76 20 86/52 (63) 96 07/18/17 11:00 79 07/18/17 09:51 95 21 I/O 07/18/17 07/18/17 07/18/17 07/19/17 07/19/17 07/19/17 07:00 15:00 23:00 07:00 15:00 23:00 Intake Total 720 ml 970 ml 320 ml Output Total 400 ml 475 ml 1262 ml Balance 320 ml 495 ml -942 ml Intake Oral 720 ml 520 ml 320 ml IV Total 350 ml Albumin 100 ml Output Urine Total 400 ml 475 ml 1262 ml # Bowel Movements 2 0 Physical Exam GENERAL: Well-nourished, well-developed patient in no apparent distress. NECK: No JVD. No carotid bruit. CARDIOVASCULAR: Regular rate and rhythm. S1/S2 no murmur, rub, or gallop. RESPIRATORY: No accessory muscle use. Clear to auscultation. Breath sounds equal bilaterally. GASTROINTESTINAL: Abdomen soft, non-tender, nondistended. MUSCULOSKELETAL: Extremities without clubbing, cyanosis, or edema. Laboratory Laboratory Tests Test 07/18/17 16:19 07/19/17 05:34 White Blood Count 3.5 TH/MM3 Red Blood Count 3.96 MIL/MM3 Hemoglobin 10.3 GM/DL Hematocrit 32.0 % Mean Corpuscular Volume 80.7 FL Mean Corpuscular Hemoglobin 26.1 PG Mean Corpuscular Hemoglobin Concent 32.3 % Red Cell Distribution Width 19.1 % Platelet Count 218 TH/MM3 Mean Platelet Volume 8.7 FL Prothrombin Time 12.3 SEC Prothromb Time International Ratio 1.1 RATIO Blood Urea Nitrogen 69 MG/DL Creatinine 1.59 MG/DL Random Glucose 99 MG/DL Total Protein 7.4 GM/DL Albumin 3.7 GM/DL Calcium Level 8.3 MG/DL Alkaline Phosphatase 138 U/L Aspartate Amino Transf (AST/SGOT) 39 U/L Alanine Aminotransferase (ALT/SGPT) 42 U/L Total Bilirubin 1.5 MG/DL Sodium Level 129 MEQ/L Potassium Level 3.9 MEQ/L Chloride Level 93 MEQ/L Carbon Dioxide Level 27.3 MEQ/L Anion Gap 9 MEQ/L Estimat Glomerular Filtration Rate 53 ML/MIN (Gera Garvin) Assessment and Plan Problem List: (1) Rapid atrial fibrillation ICD Codes: I48.91 - Unspecified atrial fibrillation Status: Acute (2) CAD in [place] artery ICD Codes: I25.10 - Atherosclerotic heart disease of [place] coronary artery without angina pectoris Status: Chronic (3) Cardiomyopathy ICD Codes: I42.9 - Cardiomyopathy, unspecified Status: Acute (4) Acute on chronic systolic (congestive) heart failure ICD Codes: I50.23 - Acute on chronic systolic (congestive) heart failure (5) CKD (chronic kidney disease) ICD Codes: N18.9 - Chronic kidney disease, unspecified Assessment and Plan afib/flutter - remains in SR cardiomyopathy- EF<20%, EP following, but pt declines AICD CHF- continue Entresto, . (Gera Garvin) Assessment and Plan afib flutter - now NSR. CHF - significant weight loss. holding diuretic due to Cr, Na, Cl, and SBP. tolerating entresto. nodule - refusing CT guided biopsy. 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 transition to floor? PT/OT/Case mgt/DC planning (Adebayo Alvarez MD) Gera Garvin Jul 19, 2017 07:55 Adebayo Alvarez MD Jul 19, 2017 08:20
[2017-07-19] MEDS: SACUBITRIL/VALSARTAN 24 MG-26 MG TAB PO SCH ×2 (08:29→20:34)
[2017-07-19] MEDS: FLUTICASONE PROPIONATE 110 MCG/ACT 12 GM INHALER INH SCH ×2 (08:29→20:38)
[2017-07-19] MEDS: DOCUSATE SODIUM 100 MG CAP PO SCH ×2 (08:29→20:39)
[2017-07-19] MEDS: ATORVASTATIN 20 MG TAB PO SCH (08:29)
[2017-07-19] MEDS: ALLOPURINOL 100 MG TAB PO SCH (08:30)
--- NOTE | 2017-07-19 09:56 | HHI.NPPN ---
Subjective Complaints: Shortness of Breath General Problems: Edema Renal Failure: Acute Interval History We were asked to see the patient for evaluation of renal failure this admission. However when we went to examine the patient he informed me that he does not want to be evaluated at this time, he is wanting to be discharged. His renal function appears to have improved overnight. Please call us if the patient changes his mind or if our services are needed. Objective Data Data Vital Signs Date Time Temp Pulse Resp B/P (MAP) Pulse Ox O2 Delivery O2 Flow Rate FiO2 07/19/17 07:55 78 07/19/17 07:53 98.1 78 20 109/57 (74) 98 07/19/17 07:41 95 21 07/19/17 03:00 98.3 78 16 93/57 (69) 96 07/19/17 03:00 78 07/18/17 23:00 98.0 89 12 87/58 (68) 90 07/18/17 23:00 85 07/18/17 21:38 94 21 07/18/17 19:00 98.3 77 16 88/56 (67) 96 07/18/17 19:00 87 07/18/17 15:00 77 07/18/17 15:00 97.5 77 16 78/48 (58) 99 07/18/17 11:00 98.7 76 20 86/52 (63) 96 07/18/17 11:00 79 -: 07/18/17 1619 07/19/17 0534 Mariel LittleP Jul 19, 2017 09:56
[2017-07-19 12:54] LABS: INTERNATIONAL NORMALIZED RATIO 1.1 RATIO; PROTHROMBIN TIME - PATIENT 11.9 SEC (9.8-11.6)
--- NOTE | 2017-07-19 18:42 | HHI.PR ---
Subjective Remarks No further hemoptysis. On o2 2L. Was scheduled for CT, needle Biopsy of a Lung nodule, but the patient has refused it and wants to go home Objective Vital Signs Date Time Temp Pulse Resp B/P (MAP) Pulse Ox O2 Delivery O2 Flow Rate FiO2 07/19/17 15:13 97.6 79 20 101/63 (76) 98 07/19/17 15:12 79 07/19/17 11:09 78 07/19/17 11:07 98.3 78 16 88/55 (66) 98 07/19/17 07:55 78 07/19/17 07:53 98.1 78 20 109/57 (74) 98 07/19/17 07:41 95 21 07/19/17 03:00 98.3 78 16 93/57 (69) 96 07/19/17 03:00 78 07/18/17 23:00 98.0 89 12 87/58 (68) 90 07/18/17 23:00 85 07/18/17 21:38 94 21 07/18/17 19:00 98.3 77 16 88/56 (67) 96 07/18/17 19:00 87 I/O 07/18/17 07/18/17 07/18/17 07/19/17 07/19/17 07/19/17 07:00 15:00 23:00 07:00 15:00 23:00 Intake Total 720 ml 970 ml 320 ml 900 ml Output Total 400 ml 475 ml 1262 ml 1775 ml Balance 320 ml 495 ml -942 ml -875 ml Intake Oral 720 ml 520 ml 320 ml 800 ml IV Total 350 ml 100 ml Albumin 100 ml Output Urine Total 400 ml 475 ml 1262 ml 1775 ml # Bowel Movements 2 0 2 Result Diagram: 07/18/17 1619 07/19/17 0534 Objective Remarks GENERAL: This moderately overweight elderly -[place]ong[place]ian male who is alert and in no acute distress. Mild pallor. No cyanosis or icterus or lymphadenopathy. HEENT: Head normocephalic. Pupils are reactive. Tongue moist. Throat is clear. Nasal mucosa injected. NECK: Supple. No bruits or thyroid enlargement. Mild venous distension. CHEST: Decreased excursions with occasional basilar crackles and a few wheezes anteriorly. CARDIOVASCULAR: Heart sounds are regular S1-S2 with no murmur or S3. ABDOMEN: The abdomen is soft, obese without masses. No organomegaly or tenderness. Bowel sounds are active. EXTREMITIES: Edema 1+. Decreased peripheral pulses. No calf tenderness. Reflexes are 1+ with no gross motor deficits. Cranial nerves grossly intact. SKIN: Showed some abrasions in the lower extremities. Assessment and Plan Assessment and Plan IMPRESSION 1. Bilateral lung nodules, etiology to be determined. 2. Pulmonary hemorrhage due to recent anticoagulation. 3. Systolic heart failure, history of. 4. History of CABG x5. 5. History of asthma. Plan : 1. Will wean o2 , keep sat >92. 2. Hold anticoagulants. 3. Get a F/U Chest Xray. 4. Refused Needle aspiration of lung mass. 5. Cont Duonebs tid prn. 6. Will Follow as Needed Barbara Hooper MD Jul 19, 2017 18:42
--- NOTE | 2017-07-19 20:01 | HHI.CCPN ---
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 He had a massive FL in November 2016 complicated by cardiogenic shock. EF markedly reduced at about 35%. Subsequently readmitted in February 2017 with unstable angina and systolic heart failure, EF 15 - 20% ranged. Required urgent CABG X 5 with recovery complicated by respiratory difficulties and heart failure. It is noteworthy that his left hemidiaphragm is chronically elevated, demonstrated on CXRs in November, months before his CABG. He comes in at this time with recurrent fluid overload and has been placed on milrinone by cardiology service. The initial response to diuretics has been excellent. He has developed a marked contraction alkalosis which will exacerbate potassium wasting - will improve with a dose or two of carbonic anhydrase inhibitor. 07/14: Nice response to bumex gtt, will reduce rate to 0.25 mg/hr and add albumin scheduled. Will allow mild prerenal azotemia and follow peripheral edema as a guide. Diamox X 1 for contraction alkalosis. Mag, K, phos replacement ongoing. He feels better. Milrinone was stopped earlier today but he became hypotensive and anuric. Will restart and back off on diuretic a little. 07/15: Became anuric after milrinone stopped yesterday with subsequent creatinine rise. Diuretic drip stopped and milrinone restarted with nice improvement in spontaneous urine output. Dependent edema persists. Patient insists on sitting up in a chair with legs dependent - states he gets bad leg cramps when legs are elevated. Electrolytes acceptable. Please feel free to taper inotropes and vasopressors however you like. He is breathing comfortably now. Diuretics still on hold. Restart at your discretion. 07/16: Fluid balance about even over past 24 hours. Probably need to restart diuretics. Breathing comfortably. 07/17: Sitting up in chair today, breathing comfortably. Fluid balance remains even. Lab and chest x-ray ordered pending at this time. 07/18: Breathing comfortably talking in full sentences. Urine output 1.3 L in 24 hours, slightly negative fluid balance today. Plan for AICD in a.m. Appears not a candidate for PREPPER (QRS 140ms). After discussion with Dr. Alvarez and have discontinued Plavix yesterday, due to significantly increased risk of bleeding with dual antiplatelet therapy and full anticoagulation 07/19: comfortable. denies complaints. patient refused lung biopsy today, and refused AICD. talked with Dr. Alvarez and wants to go home and finish work-up as outpatient. patient understands that not having AICD would put him at risk of sudden cardiac from dysrhythmias, but wants to finish everything else as outpatient. however, he does want to consider AICD tomorrow morning if possible. I spoke with Dr. Tracy and he is agreeable to see the patient ongoing and get the patient ready for ongoing outpatient management. persistent hyponatremia, though somewhat improved. TREVOR resolving. Objective Vital Signs Date Time Temp Pulse Resp B/P (MAP) Pulse Ox O2 Delivery O2 Flow Rate FiO2 07/19/17 15:13 97.6 79 20 101/63 (76) 98 07/19/17 07:41 21 07/17/17 22:30 Nasal Cannula 3.00 Intake and Output 07/19/17 07/19/17 07/20/17 08:00 16:00 00:00 Intake Total 320 ml 900 ml Output Total 1262 ml 1775 ml Balance -942 ml -875 ml Result Diagram: 07/18/17 1619 07/19/17 0534 Objective Remarks Gen: Pleasant Kim male sitting up in chair Head: Normocephalic, atraumatic Neck: Supple, airway widely patent. No JVD Lungs: Clear anteriorly, crackles in bases. No wheezes. Comfortable pattern. Heart: NL S1S2, no m,r. No JVD. Abdomen: Benign, soft. BS active. No guarding. Extremities: Warm, well perfused. 2+ tense edema both legs to knees Neuro: Alert, cooperative. M/S grossly intact. Alert, oriented X 3. No focal deficits A/P Assessment and Plan Assessment: 1. Ischemic cardiomyopathy. 2. Acute on chronic systolic heart failure, NYHA class IV heart failure 3. Fluid overload. 4. TREVOR. 5. NSVT. 6. Contraction alkalosis. Plan: - Had been off milrinone milrinone infusion. Off Bumex, use intermittently to achieve negative balance - Follow electrolytes closely. Follow renal function closely, improving - trend sodium. - Electrolyte replacement protocol. - will keep patient NPO at midnight and re-eval possible AICD in the AM. - Currently on Lovenox 100 mg subcutaneous every 12, aspirin, Plavix, entresto, amiodarone, Lipitor - Discussed with cardiology, Dr. Alvarez re:increased risk of bleeding from dual antiplatelet therapy plus therapeutic Lovenox. - Plavix DCd 07/17/17, continue aspirin and therapeutic anticoagulation (BMS in nov 2016) - 2D Echo LVEF <20%, +ve LV thrombus - Elevate legs. Overall impression: if patient wants to consider outpatient ongoing management, will transition to hospitalist service and optimize electrolytes for discharge soon. will transfer to floor. [facility] will sign off. Silvano Perales MD Jul 19, 2017 20:01
[2017-07-19] MEDS: VANCOMYCIN 1,500 MG/NS 500 ML IV SCH ×2 (20:34)
[2017-07-20] VITALS (7 sets, daily range): BP systolic 83–101; BP diastolic 53–66; PULSE 79–94; RESP 15–20; TEMP 98.2–98.5; O2SAT 98–100
[2017-07-20] MEDS: CEFEPIME INJ 2,000 MG in SODIUM CHLORIDE 0.9% INJ 100 ML IV SCH (05:00)
[2017-07-20 05:26] LABS: BICARBONATE 27.4 MEQ/L (21.0-32.0); POTASSIUM 4.1 MEQ/L (3.5-5.1)
[2017-07-20] MEDS: ALBUTEROL SULFATE 2 MG TAB PO SCH ×2 (06:00)
[2017-07-20] MEDS ORDERED: ISOPROTERENOL HCL 1 MG/5 ML AMP ONE (07:17)
[2017-07-20] MEDS ORDERED: PROPOFOL 200 MG/20 ML AMP ONE (07:22)
[2017-07-20] MEDS ORDERED: HEPARIN-NS/PF INJ 1,000 ML ONE (08:09)
[2017-07-20] MEDS: DOCUSATE SODIUM 100 MG CAP PO SCH (09:00)
--- NOTE | 2017-07-20 09:07 | CATHPROC ---
[employer] HIS Report Study Information Study Number Admission Scheduled Start Study Start [id number] Jul 08 2017 5:29PM 07/20/2017 Jul 20 2017 7:16AM [place] [facility] Electrophysiology Study Admit Source Facility Department Other [facility] - Marine Safety Officer Physician and Clinical Staff Initial Chaka Perkins Airbrush Painter Michael Resendez,RT(R) Other Anesthesia, BURGLAR ALARM ASSEMBLER Recorder Bridget Knutson,CARO Scrub Freda Amador RCIS Procedures Performed Procedure Location (Site) Vessel Name Ablation Procedure RF Ablation Isthmus Other Equipment Time Shooting Gallery Operator Description Size Mfg Part Number Used/Scraped BIOSENSE MIMS CATHETER, CELSIUS DS, 8MM, F [id number] 08:43 FR 7 Used INC. TYPE QUAD *[id number] 08:21 [employer] PACK, CCL CUSTOM * Used *[id number] 08:21 AIM PACER ALICEA, LIMB * 2530 *[id number] Used 08:47 [employer] PACER SAFE SHEATH, FR6, 13CM FR 6 [id number] Used [id number] 08:49 NAMIC TUBING, HIGH PRESSURE 48" 48" Used *[id number] 08:21 [employer] BLANKET,WARM AIR CCL * Used *[id number] 08:49 [employer] CATHETER, JSN, QUAD FR 5 Used *[id number] 08:49 [employer] CATHETER, JSN, QUAD FR 5 Used *[id number] 08:49 [employer] CATHETER, JSN, QUAD FR 5 Used *[id number] 08:49 [employer] CATHETER, JSN, QUAD FR 5 Used *[id number] 08:55 [employer] CATHETER, JSN, QUAD FR 5 Used *[id number] 08:21 [employer] ELECTRODE KIT, RASHMI X SURFACE * [id number] Used [id number] 08:45 [employer] SHEATH, EPS, FR5 FAST CATH FR 5 Used *[id number] 08:45 [employer] SHEATH, EPS, FR5 FAST CATH FR 5 Used *[id number] [id number] 08:45 [employer] SHEATH, EPS, FR5 FAST CATH FR 5 Used *[id number] 08:45 [employer] SHEATH, EPS, FR8 FAST CATH FR 8 Used *[id number] [facility] PAD, ELECTROSURGICAL 08:21 * [id number] *[id number] Used SURGICAL GROUNDING (BLUE) History: Allergies Allergy Reaction DIFFICULT AIRWAY Cardiac Arrest Contrast Media *MDRO Multi-Drug Resistant Organism iohexol diatrizoate meglumine gadoteridol gadodiamide iodixanol gadobenic acid Shellfish Wheezing History: Risk Factors Hypertension Dyslipidemia Previous CO Previous Heart Failure Yes Yes Yes Yes Labs Hgb (g/dl) Hct (%) RBC (MIL/MM3) WBC (l/cumm) Platelets (thousands) 11.60-17.00 35.00-51.00 4.00-5.90 4.00-11.00 150.00-450.00 10.0 32 3.9 3.5 218 Glucose (mg/dl) BUN (mg/dl) Creatinine (mg/dl) BUN:Creatinine (1:x) 74.00-106.00 7.00-18.00 0.50-1.30 10.00-20.00 99 64 1.5 42.7 Na (meq/l) K (meq/l) 136.00-145.00 3.50-5.10 133 4.1 INR (PTT:PT) 0.90-1.10 1.1 Medication Medication Total Dose (Bolus/Oral) Medication Total Dosage/Unit 2% XYLOCAINE 100 mL Medications (Bolus/Oral) Medication Time Given Dosage/Unit Administered By Reason 2% XYLOCAINE 07/20/2017 8:39:28 AM 50 mL Chaka Mata 50 mL 2% XYLOCAINE given in lab by Chaka Mata in Left Groin via Subcutaneous. 2% XYLOCAINE 07/20/2017 8:46:14 AM 50 mL Adolfo, Chaka 50 mL 2% XYLOCAINE given in lab by Chaka Mata in Right Groin via Subcutaneous. Initial Case Assessment Cardiovascular HR Rhythm NIBP Chest Pain 80 sr 99/64 0 Edema Present Skin color Skin Mild Normal Warm Dry Circulatory - Right Pulses Dorsalis Pedis Radial 1 2 Scale (0,1,2,3,4,d) Circulatory - Left Pulses Dorsalis Pedis Radial 1 2 Scale (0,1,2,3,4,d) Circulatory - Lower Extremities Color Lower Right Color Lower Left Normal Normal Neurological State Oriented to time-place- Alert Moves all extremities person Respiration - General Respiration Rate SpO2 (%) O2 (lpm) (B/min) 20 99 3 Chronological Log Time Study Chronological Log 7:55:23 Patient arrived via Bed. 7:55:24 Patient Name, D.O.B, / Armband Verified By R.N. 7:55:25 Consent signed by the physician and the patient and verified by the Marine Safety Officer staff. 7:55:25 Pre-op and post- op instructions given; patient acknowledges understanding of instructions. 7:55:26 Verbal Stimulation=2 Physical Stimulation=2 Airway=2 Respiration=2 TOTAL=8. (0=absent, 1=li mited, 2=present) 7:55:27 Anesthesia at bedside. Assumes care of patient. Paola 7:55:37 Patient has been NPO for More than 6Hrs. 7:55:38 Skin Breakdown-none per pt 7:55:39 Patient Warmer Placed on the Table. 7:55:40 Disposable Defibrillator Pads Placed On Patient. 7:55:42 Myrna Prominences Protected 7:55:44 A # 20 IV was noted in the Wrist (left). Grade = 0 0.9ns kvo 7:55:45 A # 20 IV was noted in the Hand (right). Grade = 0 0.9ns kvo 7:55:47 History and physical on the chart or being dictated. 8:01:19 Table restraints applied according to hospital policy 8:02:20 [facility] [place] Rep present Assessment: Initial Case, HR=80 BPM, Rhythm=sr, NIBP=99/64 mmhg, Chest Pain=0, Edema=Mild, Color =Normal, Skin = Warm, Dry Right Pulses: Augustin Ped=1, Radial=2 Left Pulses: Augustin Ped=1, Radial=2 8:13:10 Lower Right Extremities: Color=Normal Lower Left Extremities: Color=Normal Neurological: State=Alert, Ox3, VACA Respiration: Resp=20 B/min, SpO2=99 %, O2=3 lpm 8:15:38 Bilateral groins prepped with 2% chlorhexidine, and draped after a 3 minute waiting time. 8:21:00 MD paged 8:21:52 MD responded 8:36:58 MD arrived. Time Out. Correct patient, procedure, procedure equipment, site and side verified with physician present. Time 8:39:00 concurred by MD, individual staff and BURGLAR ALARM ASSEMBLER. Time Out #2 - Consents verified, patient in correct position, all results are labled and display ed, safety precautions 8:39:13 taken, antibiotics administered. Time out concurred by MD, individual staff and BURGLAR ALARM ASSEMBLER in procedur e 8:39:27 Case Start 8:39:28 50 mL 2% XYLOCAINE given in lab by Chaka Mata in Left Groin via Subcutaneous. 8:42:00 Vascular access was obtained in the Subclav. Vein (Lft. 8:42:06 Vascular access was obtained in the Subclav. Vein (Lft. 8:42:21 Vascular access was obtained in the Subclav. Vein (Lft. 8:44:53 Wire inserted 8:44:55 Wire inserted 8:44:55 Wire inserted 8:45:00 A SHEATH, EPS, FR5 FAST CATH FR 5 was advanced into the Fem Vein (left) using the Modified S eldinger technique. 8:45:41 A SHEATH, EPS, FR5 FAST CATH FR 5 was advanced into the Fem Vein (left) using the Modified S eldinger technique. 8:45:44 A SHEATH, EPS, FR5 FAST CATH FR 5 was advanced into the Fem Vein (left) using the Modified S eldinger technique. 8:46:14 50 mL 2% XYLOCAINE given in lab by Chaka Mata in Right Groin via Subcutaneous. 8:46:28 Vascular access was obtained in the Fem Vein (right). 8:46:39 Vascular access was obtained in the Fem Vein (right). 8:46:43 Wire inserted 8:46:43 Wire inserted 8:46:45 A SHEATH, EPS, FR8 FAST CATH FR 8 was advanced into the Fem Vein (right) using the Modified Seldinger technique. 8:46:53 A SAFE SHEATH, FR6, 13CM FR 6 was advanced into the Fem Vein (right) using the Modified Seld salena technique. A CATHETER, JSN, QUAD FR 5 was advanced vis Fem Vein (left) and placed in the CS. Placement was visually 8:48:47 confirmed under fluoroscopy. A CATHETER, JSN, QUAD FR 5 was advanced vis Fem Vein (left) and placed in the HIS. Placement was visually 8:49:17 confirmed under fluoroscopy. A CATHETER, JSN, QUAD FR 5 was advanced vis Fem Vein (left) and placed in the RVA. Placement was visually 8:49:23 confirmed under fluoroscopy. A CATHETER, JSN, QUAD FR 5 was advanced vis Fem Vein (right) and placed in the HRA. Placement wa s visually 8:49:38 confirmed under fluoroscopy. 8:55:13 Cs Quad removed A CATHETER, JSN, QUAD FR 5 was advanced vis Fem Vein (right) and placed in the CS. Placement was visually 8:55:24 confirmed under fluoroscopy. A CATHETER, CELSIUS DS, 8MM, F TYPE QUAD FR 7 was advanced vis Fem Vein (right) and placed in the Isthmus. 8:55:47 Placement was visually confirmed under fluoroscopy. 8:56:47 RF Ablation of the Isthmus with a CATHETER, CELSIUS DS, 8MM, F TYPE QUAD FR 7. 8:57:28 Reference ECG taken 9:02:00 Ablation complete 9:02:33 Ablation procedure performed: Aflutter. 9:02:39 EP Procedure was performed. 9:02:57 Quad Catheter(s) removed without difficulty 9:04:43 Sheath(s) left in place, secured and will be removed in Holding Area 9:05:00 Case End 9:05:04 Initial procedure has been completed. Beginning additional procedure. 9:05:43 No case complications noted. 9:05:43 Cine recording checked. 9:06:07 NOTE: This patient is undergoing an additional procedure while still in the Cardiac Cath L ab. End Study - Contrast Media Used In Study Contrast Total Opened (mL) Total Used (mL) Total Wasted (mL) Unspecified 0 0 0 End Study - Maximum Contrast Load Max Contrast Load (mL) 327.7 End Study - Radiation Exposure Fluoro Time (minutes) 7.5 End Study - Patient Disposition Complications Transferred To Interventional Outcome No Marine Safety Officer Holding successful
--- NOTE | 2017-07-20 09:56 | HHI.PR ---
Subjective Remarks eager for d/c going for aicd today. Objective Vitals Vital Signs Date Time Temp Pulse Resp B/P (MAP) Pulse Ox O2 Delivery O2 Flow Rate FiO2 07/20/17 07:57 98.5 89 20 83/53 (63) 98 07/20/17 07:57 89 07/20/17 04:00 98.2 80 15 101/60 (74) 98 07/20/17 03:23 79 07/19/17 23:44 98.0 81 15 93/57 (69) 94 07/19/17 23:44 82 07/19/17 21:29 21 07/19/17 19:31 97.9 80 17 100/66 (77) 92 07/19/17 19:00 80 07/19/17 15:13 97.6 79 20 101/63 (76) 98 07/19/17 15:12 79 07/19/17 11:09 78 07/19/17 11:07 98.3 78 16 88/55 (66) 98 Result Diagram: 07/18/17 1619 07/20/17 0428 Imaging Last Impressions Chest X-Ray 07/08/17 0000 Signed Impressions: Service Date/Time: June 18:32 - CONCLUSION: 1. No evidence of failure or pneumonia. 2. Mild compensated cardiomegaly. 3. Mild left base atelectasis. Elevated left hemidiaphragm again seen. Remi Beebe MD A/P Problem List: (1) Rapid atrial fibrillation ICD Codes: I48.91 - Unspecified atrial fibrillation Status: Acute Plan: 1. cad. s/p cabg x 5 2. admitted with afib with rvr. 3. systolic chf with exacerbation. EF 30-35% new echo 07/09. EF 20percent, apical thrombus 4. veronica after diuresis 5. 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 6. Lung nodules on CT concerning for ?mets 7. hemoptysis -long talk with risk control field representative and cardiology -pt not interested in lung nodule bx now -he was refusing aicd also....but then suddenly agreed today -he is just focused on dc home -his bp runs low but is stable will try to assist getting him home in AM..discussed with his pcp. addendum: d/c home later today. (2) Cardiomyopathy ICD Codes: I42.9 - Cardiomyopathy, unspecified Status: Acute (3) Left ventricular apical thrombus following myocardial infarction ICD Codes: I21.29 - ST elevation (STEMI) myocardial infarction involving other sites; I23.6 - Thrombosis of atrium, auricular appendage, and ventricle as current complications following acute myocardial infarction Status: Chronic (4) CAD in [place] artery ICD Codes: I25.10 - Atherosclerotic heart disease of [place] coronary artery without angina pectoris Status: Chronic (5) S/P CABG x 5 ICD Codes: Z95.1 - Presence of aortocoronary bypass graft Status: Chronic David Tracy MD Jul 20, 2017 09:56
[2017-07-20] MEDS ORDERED: LIDOCAINE HCL 1% 50 ML VIAL INFIL PRN (10:00)
[2017-07-20] MEDS ORDERED: METOCLOPRAMIDE HCL 10 MG/2 ML VIAL IV PUSH PRN (10:00)
[2017-07-20] MEDS ORDERED: ATROPINE SULFATE 1 MG/ML VIAL IV PUSH PRN (10:00)
[2017-07-20] MEDS ORDERED: LORazepam 2 MG/ML VIAL IV PUSH PRN (10:00)
[2017-07-20] MEDS ORDERED: SODIUM CHLOR 0.9% 250 ML INJ 250 ML IV PRN (10:00)
[2017-07-20] MEDS ORDERED: ceFAZolin 2 GM PREMIX 50 ML IV SCH (10:00)
[2017-07-20] MEDS ORDERED: oxyCODONE/ACETAMINOPHEN 5 MG/325 MG TAB PO PRN ×2 (10:00)
[2017-07-20] MEDS ORDERED: ONDANSETRON HCL 4 MG/2 ML VIAL IV PUSH PRN (10:00)
[2017-07-20] MEDS ORDERED: SODIUM CHLORIDE 0.9% FLUSH 10 ML FLUSH IV FLUSH PRN (10:00)
--- NOTE | 2017-07-20 10:02 | CATHPROC ---
[employer] HIS Report Study Information Study Number Admission Scheduled Start Study Start [id number] Jul 08 2017 5:29PM 07/20/2017 Jul 20 2017 9:07AM [place] [facility] Cardiac Pacer/ICD Admit Source Facility Department Other [facility] - Crop Grain Or Livestock Farmer Physician and Clinical Staff Initial Chaka Perkins Appliance Service Supervisor Freda Amador RCIS Other Anesthesia, WET PAN MIXER Recorder Bridget Knutson,RN Scrub Michael Resendez,RT(R) Procedures Performed Procedure Lead Insertion Equipment Time Hvac Journeyman Description Size Mfg Part Number Used/Scraped DEFIBRILLATOR, IMPERIA 7 VR-T 09:40 BIOTRONIK [id number] Used DX MRI 09:37 BIOTRONIK LEAD, PLEXA PRO-MRI DF 65/15 [id number] Used DERMABOND, ADHESIVE SKIN [id number] 09:09 CORDIS/PACER * Used GLUE MINI *[id number] TP-1103 09:09 [employer] SUTURE, STRIP PLUS 1/2" * Used *[id number] 09:09 zulily PACER ALICEA, LIMB * 2530 *[id number] Used [id number] 09:09 zulily PACER PACK, PACER CUSTOM * Used *[id number] 09:38 [employer] PACER SAFE SHEATH, FR8, 13CM FR 8 [id number]-1008 Used 09:24 Needle Sponge Count 2 22 Used 09:24 Needle Sponge Count 20 200 Used 09:24 Needle Sponge Count 3 3 Used SUTURE, 0 ETHIBOND [CT1] (CX21D), 8pk SUTURE, 2-0 VICRYL [CT1] ([id number]) SUTURE, 2-0 VICRYL [CT1] (RTY848W) [id number] 09:09 [facility] BLANKET,WARM AIR CCL * Used *[id number] [facility] PAD, ELECTROSURGICAL 09:09 * [id number] *[id number] Used SURGICAL GROUNDING ORANGE [id number] 09:09 [employer]. ELECTRODE, PRO-PADZ BIPHASIC * Used *85976 Equipment Model, Serial, Lot Number and Expiration Data Description Model Number Serial Number Lot Number Expiration Date DEFIBRILLATOR, IMPERIA 7 VR-T [id number] 04-16-2018 DX MRI LEAD, PLEXA PRO-MRI DF 65/15 [id number] 06-17-2019 History: Allergies Allergy Reaction DIFFICULT AIRWAY Cardiac Arrest Contrast Media *MDRO Multi-Drug Resistant Organism iohexol diatrizoate meglumine gadoteridol gadodiamide iodixanol gadobenic acid Shellfish Wheezing Medication Medication Total Dose (Bolus/Oral) Medication Total Dosage/Unit 2% XYLOCAINE 50 mL Medications (Bolus/Oral) Medication Time Given Dosage/Unit Administered By Reason 2% XYLOCAINE 07/20/2017 9:31:00 AM 50 mL Chaka Mata 50 mL 2% XYLOCAINE given in lab by Chaka Mata in Left upper chest via Subcutaneous. Ordered by Chaka Davis. Medication (Drip) Medication Time Given Dosage/Unit Concentration/Unit Diluent (ml) Solution ANCEF 07/20/2017 9:16:35 AM 2 g 2 g ANCEF given in lab by Anesthesia, WET PAN MIXER via Peripheral IV. Ordered by Chaka Mata. Reason: As pe r physicians verbal order. VANCOMYCIN DRIP 07/20/2017 9:16:00 AM 1 g 1 g VANCOMYCIN DRIP given in lab by Anesthesia, WET PAN MIXER via Peripheral IV. Ordered by Chaka Mata. Tangent son: As per physicians verbal order. Final Case Assessment Cardiovascular HR NIBP Chest Pain 92 100/64 0 Edema Present Skin color Skin Mild Normal Warm Dry Circulatory - Right Pulses Dorsalis Pedis Radial 1 2 Scale (0,1,2,3,4,d) Circulatory - Left Pulses Dorsalis Pedis Radial 1 2 Scale (0,1,2,3,4,d) Circulatory - Lower Extremities Color Lower Right Color Lower Left Normal Normal Neurological State Oriented to time-place- Lethargic Moves all extremities person Respiration - General Respiration Rate SpO2 (%) O2 (lpm) (B/min) 16 100 4 Chronological Log Time Study Chronological Log 9:06:48 NOTE: This patient is undergoing an additional procedure while still in the Cardiac Crop Grain Or Livestock Farmer . 9:06:54 Anesthesia remains at bedside. Assuming care of patient. Paola 9:07:57 Skin Breakdown- generalized dry skin noted with dry cracks. 9:09:13 2% CHLORHEXIDINE GLUCONATE WASH AND NASAL SWIPE DONE PRIOR TO PROCEDURE. 9:09:16 Bovie ground pad applied to: right thigh 1 g VANCOMYCIN DRIP given in lab by Anesthesia, WET PAN MIXER via Peripheral IV. Ordered by Chaka Mata . Reason: As per 9:16:00 physicians verbal order. 2 g ANCEF given in lab by Anesthesia, WET PAN MIXER via Peripheral IV. Ordered by Chaka Mata. Reason: As per physicians 9:16:35 verbal order. First Sponge And Instrument Count Done by Michael Resendez RT(R). 9:20:52 Hypo's: 3, Sponges: 20, Bovie/scratch: 2 Sutures: 10, Blades: 1, Instruments: 24, Syveck Patches: 0 9:29:08 Reference ECG taken Time Out. Correct patient, procedure, procedure equipment, site and side verified with physician present. Time 9:30:00 concurred by MD, individual staff and WET PAN MIXER. Time Out #2 - Consents verified, patient in correct position, all results are labled and display ed, safety precautions 9:30:20 taken, antibiotics administered. Time out concurred by MD, individual staff and WET PAN MIXER in procedur e 9:30:37 Case Start 9:31:00 50 mL 2% XYLOCAINE given in lab by Chaka Mata in Left upper chest via Subcutaneous. Order ed by Chaka Mata. 9:33:44 Vascular access was obtained in the Subclav. Vein (Lft. 9:33:49 Wire inserted 9:34:35 A SAFE SHEATH, FR8, 13CM FR 8 was advanced into the Subclav. Vein (Lft using the Modified Se barboza technique. 9:35:00 Surgical Incision Made. 9:35:22 A pocket was created at the L Upper Chest. 9:36:24 A LEAD, PLEXA PRO-MRI DF 65/15 was inserted and positioned in the RV. 9:36:45 Lead placement verified under fluoroscopy 9:36:48 The RV lead impedance and threshold being tested. 9:38:59 The RV lead was sutured to the fascia. 9:40:00 Pocket flushed with antibiotic solution 9:41:54 A DEFIBRILLATOR, IMPERIA 7 VR-T DX MRI was connected and placed in the pocket. Second Sponge And Instrument Count Done by Michael Resendez RT(R). 9:45:32 Hypo's: 3, Sponges: 20, Bovie/scratch: 2 Sutures: 10, Blades: 1, Instruments: 24, Syveck Patches: 0 9:50:15 The pocket was closed. 9:50:29 Implant Procedure was performed. 9:50:34 A ICD Implant . (Single) Final Sponge And Instrument Count Done by Michael Resendez RT(R). 9:51:09 Hypo's: 3, Sponges: 20, Bovie/scratch: 2 Sutures: 10, Blades: 1, Instruments: 24, Syveck Patches: 0 9:51:20 CVICU called. Spoke to RENY 9:51:29 Bedside Report will be given. 9:53:16 Case End 9:56:29 Steri-strips and a sterile dressing applied to site. 9:56:38 No case complications noted. 9:56:42 Cine recording checked. 9:56:44 Implantable Device card placed in patient's chart. 9:56:47 Defibrillator and ground pads removed. Skin intact. Assessment: Final Case, HR=92 BPM, YDJH=019/64 mmhg, Chest Pain=0, Edema=Mild, Color=Normal, S kin = Warm, Dry Right Pulses: Augustin Ped=1, Radial=2 Left Pulses: Augustin Ped=1, Radial=2 9:57:19 Lower Right Extremities: Color=Normal Lower Left Extremities: Color=Normal Neurological: State=Lethargic, Ox3, VACA Respiration: Resp=16 B/min, HiH2=992 %, O2=4 lpm 9:58:44 Sheaths removed right groin byDC; pressure applied to access sites. 10:00:00 Sheath removed to left groin by DB; pressure applied to access sites. 10:15:27 Sterile dressings applied to sites 10:16:46 Patient moved to stretcher 10:17:57 A sling was placed on the affected arm. End Study - Contrast Media Used In Study Contrast Total Opened (mL) Total Used (mL) Total Wasted (mL) Unspecified 0 0 0 End Study - Radiation Exposure Fluoro Time (minutes) 0.9 End Study - Sheaths Sheaths Pulled By Sheath Hold Time (min) Freda Amador 15 End Study - Patient Disposition Complications Transferred To Interventional Outcome No Telemetry Bed successful
[2017-07-20] MEDS ORDERED: BACITRACIN OINT 0.9 GM PKT TOP ONE (11:00)
[2017-07-20] MEDS ORDERED: APIXABAN 5 MG TABLET PO SCH (11:00)
[2017-07-20] MEDS: SACUBITRIL/VALSARTAN 24 MG-26 MG TAB PO SCH (11:44)
[2017-07-20] MEDS: ALLOPURINOL 100 MG TAB PO SCH (11:44)
[2017-07-20] MEDS: ATORVASTATIN 20 MG TAB PO SCH (11:44)
[2017-07-20] MEDS: FLUTICASONE PROPIONATE 110 MCG/ACT 12 GM INHALER INH SCH (11:44)
--- NOTE | 2017-07-20 11:54 | RADRPT ---
EXAM DATE/TIME: 07/20/2017 10:50 [place] COMPARISON: CHEST SINGLE AP, July 18, 2017, 5:12. CT THORAX W/O CONTRAST, July 18, 2017, 16:41. CHEST SIN GLE AP, July 18, 2017, 14:10. INDICATIONS : Evaluate for pneumothorax. Status post pacemaker. MEDICAL HISTORY : Myocardial infarction. Asthma SURGICAL HISTORY : CABG. ENCOUNTER: Subsequent ACUITY: 1 day PAIN SCORE: 0/10 LOCATION: Bilateral chest FINDINGS: Stable postsurgical features of median sternotomy. Interval placement of single lead AICD device with lead projecting over the right atrium and ventricles. No significant pneumothorax. Redemonstration o f parenchymal masses in the right lung base and airspace disease and volume loss in the left lung bas e. Multiple additional bilateral pulmonary nodules are not as well demonstrated on this exam. Cardiac silhouette is enlarged. Remainder of the exam is unchanged. CONCLUSION: 1. Single lead AICD device projecting over the right atrium and ventricle without pneumothorax. 2. Redemonstration of right lower lobe parenchymal masses and associated airspace disease. 3. Stable elevation of the left hemidiaphragm with left lower lobe airspace disease. 4. Multiple additional bilateral pulmonary nodules demonstrated on recent CT exam not as well demonst rated on radiographs. Karlo De La Rosa MD on July 20, 2017 at 11:49 Board Certified Radiologist. This report was verified electronically.
[2017-07-20] MEDS ORDERED: PROPOFOL 200 MG/20 ML AMP IV ONE (12:00)
[2017-07-20] MEDS ORDERED: MIDAZOLAM HCL 2 MG/2 ML VIAL IV ONE (12:00)
[2017-07-20] MEDS ORDERED: PHENYLEPH/NS 1000 MCG/10 ML SYR IV ONE (12:00)
[2017-07-20] MEDS ORDERED: VANCOMYCIN 500 MG VIAL ONE (12:11)
[2017-07-20] MEDS ORDERED: VANCOMYCIN HCL 1000 MG VIAL ONE (12:11)
[2017-07-20] MEDS ORDERED: ceFAZolin INJ 1,000 MG VIAL ONE (12:11)
[2017-07-20] MEDS ORDERED: LIDOCAINE HCL 2% 50 ML VIAL ONE (12:11)
[2017-07-20] MEDS ORDERED: APIX5TAB PO (13:41)
[2017-07-20] MEDS ORDERED: HYDR-3366 PO (13:43)
[2017-07-20] MEDS ORDERED: CEPH-460 PO (13:43)
[2017-07-20] MEDS ORDERED: SACU1TAB PO (13:44)
[2017-07-20] MEDS ORDERED: ASPI81CH25 CHEW (13:58)
--- NOTE | 2017-07-20 14:01 | HHI.DCPOC ---
Discharge Care Plan Diagnosis: (1) TREVOR (acute kidney injury) (2) Lung nodule, multiple (3) Acute on chronic systolic (congestive) heart failure (4) Rapid atrial fibrillation Goals to Promote Your Health * To prevent worsening of your condition and complications * To maintain your health at the optimal level Directions to Meet Your Goals Take your medications as prescribed Follow your dietary instruction Follow activity as directed Keep your appointments as scheduled Take your immunizations and boosters as scheduled If your symptoms worsen call your PCP, if no PCP go to Urgent Care Center or Emergency Room Smoking is Dangerous to Your Health. Avoid second hand smoke Call the 24-hour hour crisis hotline for domestic abuse at David Tracy MD Jul 20, 2017 14:01
--- NOTE | 2017-07-20 18:28 | HHI.PR ---
Subjective Remarks No further hemoptysis. Off O2 . Had ICD placed Was scheduled for CT, needle Biopsy of a Lung nodule, but the patient has refused it and wants to go home Objective Vital Signs Date Time Temp Pulse Resp B/P (MAP) Pulse Ox O2 Delivery O2 Flow Rate FiO2 07/20/17 15:17 88 07/20/17 11:29 99 Nasal Cannula 3.00 07/20/17 11:08 98.5 94 18 90/66 (74) 100 07/20/17 11:07 92 07/20/17 07:57 98.5 89 20 83/53 (63) 98 07/20/17 07:57 89 07/20/17 04:00 98.2 80 15 101/60 (74) 98 07/20/17 03:23 79 07/19/17 23:44 98.0 81 15 93/57 (69) 94 07/19/17 23:44 82 07/19/17 21:29 21 07/19/17 19:31 97.9 80 17 100/66 (77) 92 07/19/17 19:00 80 I/O 07/19/17 07/19/17 07/19/17 07/20/17 07/20/17 07/20/17 07:00 15:00 23:00 07:00 15:00 23:00 Intake Total 320 ml 900 ml 1095 ml 800 ml Output Total 1262 ml 1775 ml 875 ml 900 ml Balance -942 ml -875 ml 220 ml -100 ml Intake Oral 320 ml 800 ml 480 ml 800 ml IV Total 100 ml 615 ml Output Urine Total 1262 ml 1775 ml 875 ml 900 ml # Voids 3 # Bowel Movements 2 0 0 Result Diagram: 07/18/17 1619 07/20/17 0428 Objective Remarks GENERAL: This moderately overweight elderly -[place] male who is alert and in no acute distress. Mild pallor. . HEENT: Head normocephalic. Pupils are reactive. Tongue moist. Throat is clear. Nasal mucosa injected. NECK: Supple. No bruits or thyroid enlargement. Mild venous distension. CHEST: Decreased excursions with occasional basilar crackles . CARDIOVASCULAR: Heart sounds are regular S1-S2 with no murmur or S3. ABDOMEN: The abdomen is soft, obese without masses. No organomegaly or tenderness. Bowel sounds are active. EXTREMITIES: Edema 1+. Decreased peripheral pulses. No calf tenderness. Reflexes are 1+ with no gross motor deficits. SKIN: Showed some abrasions in the lower extremities. Assessment and Plan Assessment and Plan IMPRESSION 1. Bilateral lung nodules, etiology to be determined. 2. Pulmonary hemorrhage due to recent anticoagulation. 3. Systolic heart failure, history of. 4. History of CABG x5. 5. History of asthma. Plan : 1. D/C O2 2. Cont anticoagulants. 3. Get a F/U Chest Xray. 4. Refused Needle aspiration of lung mass., for now 5. D/c Duonebs 6. Will Follow as OP if patient is agreeable. 7. D/W patient about W/U of lung nodule as OP Barbara Hooper MD Jul 20, 2017 18:28
[2017-07-20] MEDS ORDERED: PHARMACY ORDERED LAB ONE (19:45)
[2017-07-20] MEDS ORDERED: SODIUM CHLORIDE 0.9% FLUSH 10 ML FLUSH IV FLUSH SCH (21:00)
--- NOTE | 2017-07-25 14:47 | PD.CARD ---
SINGLE CHAMBER DEFIB IMPLANT PROCEDURE DATE: Jul 20, 2017 NYHA Classification: Class II (Mild) Prevention: Primary Single Chamber Defib Implant PROCEDURE: Single chamber defibrillator implantation and device testing. INDICATIONS: Mr. Campbell is a 66 -year-old male with hx of congestive heart failure, CAD, ischemic cardiomyopathy, ejection fraction 20%, long episodes of nonsustained VT who undergo defibrillator implantation for sudden prevention. The risks, the nature and the benefit of the procedure are clearly stated to him . Risks include pneumothorax, cardiac perforation, stroke and even . He understood and agreed to proceed. PROCEDURE: As written, informed consent was obtained prior to electrophysiology study and ablation, the patient was kept into the EP Lab where he was prepped and draped in the sterile fashion. Conscious sedation was initiated and maintained throughout the procedure by anesthesiologist. Once sedation was verified, the left infraclavicular area was anesthetized with 2% Xylocaine. Using modified Seldinger technique, the left subclavian vein was cannulated on one occasion and one guide wire was advanced. Then, using #11 blade scalpel, a 3-cm incision was made two fingerbreadths below left clavicle. This incision was then taken down to the deep fascial layer using Bovie cautery and blunt dissection. Into the inferomedial direction, a device pocket was dissected, then the wire was dissected into the pocket. A 2-0 Vicryl suture was placed around the wires to prevent bleeding. At this point, over the wire, the 8- Estonian dilator and introducer was advanced. As dilator and wire were removed, an active fixation right ventricular pacing, sensing and defibrillatory lead was advanced. After adequate pacing and sensing thresholds were obtained, the lead was secured in the pocket with #2 Ethibond suture. At that point, the pocket was copiously irrigated with antibiotic solution. The leads were connected to the generator and placed into the pocket. I did not proceed with NIPS because of possible LV apical clot. I did proceed with wound closure. The deep fascial layer was approximated with 2-0 Vicryl suture in a continuous fashion. The subcutaneous layer was approximated with 2-0 Vicryl suture in a continuous fashion. The subcuticular layer was approximated with 2-0 Vicryl suture in a continuous fashion. Dermabond adhesive was applied to the wound, followed by a sterile pressure dressing. There was no complication. The patient tolerated procedure. Blood loss minimal. 1. Implanted Hardware: The implanted defibrillator generator is a S[employer]ularoniShelfFlip, model number 557944, serial number [id number]. The right ventricular pacing, sensing and defibrillatory lead is a [employer] model number 428811, serial number [id number]. 2. Thresholds: The right ventricular pacing threshold in the bipolar mode was .8 volts at .5 milliseconds, lead impedance 565 ohms and R-wave at 11 mV. P wave at 4.2 mV 3. Settings: The device set in VVI 40 defibrillatory portion for two zones, one zone for ventricular tachycardia between 160 and 240 beats per minute. Initial therapy consists of one burst of ATP, one ramp, 81%, 10 pulse, 10 millisecond decremental, followed by 20, then 30 and all subsequent shocks at 40 joules defibrillatory shock, the second zone for ventricular fibrillation above 240 beats per minute, first therapy at 30 and all subsequent shocks at 40 joules defibrillatory shock. CONCLUSIONS: Successful defibrillator implantation. COMMENT AND RECOMMENDATIONS: The patient will be transferred to the telemetry unit, will be observed and when stable can be discharged home. Chaka Mata MD Jul 25, 2017 14:47
--- NOTE | 2017-07-25 14:55 | PD.CARD ---
Atrial Flutter PROCEDURE DATE: Jul 20, 2017 PROCEDURE PERFORMED Electrophysiology study, CS cannulation, 3-D mapping, radiofrequency ablation of atrial flutter. INDICATIONS FOR PROCEDURE Mr. Campbell is a 66-year-old male with history of aortic valve replacement, pulmonary hypertension, shortness of breath, atrial flutter, previous cardioversion, back in atrial flutter, heart rate difficult to control to undergo electrophysiology study and ablation. The risks, the nature and the benefit of the procedure are clearly stated to him. The risks include pneumothorax, cardiac perforation, stroke and even . The patient understood and agreed to proceed. PROCEDURE After written informed consent was obtained, the patient was brought to the EP lab where he was prepped and draped in the usual sterile fashion. Conscious sedation was initiated and maintained throughout the procedure by the anesthesiologist. Once sedation was verified, the left and right inguinal area was anesthetized with 2% Xylocaine. Using modified Seldinger technique, the left femoral vein was cannulated on three occasions, three guidewires were advanced over the wire. Three 5-[place] Hemaquets were advanced. Then the right femoral vein was cannulated on two occasions; two guidewire were advanced over the wire. A 6 and an 8-[place]an Hemaquet were advanced. Then under fluoroscopic guidance through the 5-[place]rit[place]an Hemaquet, four 5-Erit[place]an Marry curved quadripolar electrophysiology catheters were advanced and placed and the His, upper right atrium, coronary sinus and right ventricular apex. Basic interval was measured. The patient was in atrial flutter. Cycle length was around 240 milliseconds. Then through the 8-[place] Hemaquet, a Cordis Bowen 8-mm F-curved mapping and radiofrequency ablation catheter was advanced. Using [employer] endocardial solution mapping system, a three-dimensional configuration of the right atrium was obtained. Points were taken at the SVC, IVC, TV6, CS and His. Then the catheter was placed at the critical isthmus. Radiofrequency energy was delivered. Cycle length prolonged, subsequently converted into sinus rhythm. Further burn was delivered in the area. Atrial pacing protocol was repeated. No tachyarrhythmia was induced. At that point the procedure was complete. All catheters were removed. The patient is going to be kept on the table and a single chamber defib will be implanted for SCD primary prevention. That was cecilia complex case. No incident reported. Blood loss minimal. 1. Electrocardiogram: At baseline the patient was in atrial flutter. Postprocedure the patient is in sinus rhythm. 2. Basic Interval: Base cycle length was around 540 milliseconds. Post- ablation it was around 910 seconds. AH, was around 120, HV was around 60 milliseconds. 3. Atrial Pacing Protocol: No tachyarrhythmia was induced post ablation. 4. Tachyarrhythmia: Atrial flutter was mapped and ablated. Ablation was successful. CONCLUSION Successful electrophysiology study, mapping, radiofrequency of atrial flutter. COMMENT AND RECOMMENDATIONS The patient is going to be kept on the table and a single chamber defib will be implanted for SCD prevention. Chaka Mata MD Jul 25, 2017 14:55
--- NOTE | 2017-07-25 15:08 | HHI.DS ---
Discharge Summary Admission Date Jul 08, 2017 at 17:29 Discharge Date: Jul 20, 2017 Admitting Diagnosis (1) Acute on chronic systolic (congestive) heart failure Diagnosis: Principal ICD Codes: I50.23 - Acute on chronic systolic (congestive) heart failure (2) Lung nodule, multiple Diagnosis: Principal ICD Codes: R91.8 - Other nonspecific abnormal finding of lung field (3) TRVEOR (acute kidney injury) Diagnosis: Principal ICD Codes: N17.9 - Acute kidney failure, unspecified (4) Rapid atrial fibrillation Diagnosis: Principal ICD Codes: I48.91 - Unspecified atrial fibrillation Status: Acute (5) Cardiomyopathy Diagnosis: Principal ICD Codes: I42.9 - Cardiomyopathy, unspecified Status: Acute (6) Left ventricular apical thrombus following myocardial infarction Diagnosis: Principal ICD Codes: I21.29 - ST elevation (STEMI) myocardial infarction involving other sites; I23.6 - Thrombosis of atrium, auricular appendage, and ventricle as current complications following acute myocardial infarction Status: Chronic (7) CAD in [place] artery Diagnosis: Secondary ICD Codes: I25.10 - Atherosclerotic heart disease of [place] coronary artery without angina pectoris Status: Chronic (8) S/P CABG x 5 Diagnosis: Secondary ICD Codes: Z95.1 - Presence of aortocoronary bypass graft Status: Chronic Brief History Pt is 66 yo male with cad, cabg x 5, afib, LV thrombus who has had progressive lower ext edema over past month. has developed worsening sob with exertion and orthopnea. His bp has been low with systolics in 90s and afib to 130s. His drapery cutter machine added amiodarone and digoxin 2 days prior to admission but w/out benefit. He was directly admitted for control of afib and acute systolic chf. Hospital Course A/P Problem List: (1) Rapid atrial fibrillation 1. cad. s/p cabg x 5 2. admitted with afib with rvr. 3. systolic chf with exacerbation. EF 30-35% new echo 07/09. EF 20percent, apical thrombus 4. trevor after agressive iv diuresis in ICU 5. 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 6. Lung nodules on CT concerning for ?mets 7. hemoptysis -long talk with paper cone grader and cardiology -pt not interested in lung nodule bx now -he was refusing aicd also....but then suddenly agreed today -he is just focused on dc home -his bp runs low but is stable. his entresto will be continued -He will be discharged on eliquis per cardiology His prognosis is very poor. he will f/u with cardiology and pcp. 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 (4) CAD in [place] artery (5) S/P CABG x 5 Pt Condition on Discharge: Stable Discharge Disposition: Discharge Home Discharge Instructions DIET: Follow Instructions for: Heart Healthy Diet Activities you can perform: Weight Bearing as Luana Follow up Referrals: Cardiology - [address] catherine rey PCP Follow-up - [address] shah New Medications: Cephalexin (Keflex) 500 Mg Capsule 500 MG PO TID for Infection for 3 Days, CAP 0 Refills Hydrocodone-Acetaminophen ([place]) 10-325 Mg Tab 1 TAB PO Q4H PRN for PAIN, #40 TAB 0 Refills Allopurinol (Zyloprim) 100 Mg Tab 100 MG PO DAILY for gout, #30 TAB 0 Refills Apixaban (Eliquis) 5 Mg Tab 5 MG PO BID for thrombus, #60 TAB Aspirin (Aspirin Low Strength) 81 Mg Chew 81 MG CHEW DAILY for cad for 90 Days, EA Sacubitril-Valsartan (Entresto) 24-26 Mg Tab 1 TAB PO BID for chf, #60 TAB Continued Medications: Albuterol 18 GM Inh (Ventolin Hfa 18 GM Inh) 90 Mcg/Act Aer 2 PUFF INH Q4-6H PRN for SHORTNESS OF BREATH, #1 INHALER 0 Refills Atorvastatin (Atorvastatin) 20 Mg Tab 20 MG PO HS for Cholesterol Management, #30 TAB 0 Refills Docusate Sodium (Dok) 100 Mg Cap 100 MG PO BID for Constipation for 30 Days, CAP Fexofenadine Hcl (Vicenta Allergy) 60 Mg Tab 60 MG PO DAILY, TAB Fluticasone 12 GM Inh (Flovent Hfa 12 GM Inh) 110 Mcg/Act Inh 1 PUFF INH BID for Asthma Management, #1 INHALER 0 Refills Discontinued Medications: Furosemide (Furosemide) 40 Mg Tab 40 MG PO DAILY for cardiomyopathy, #31 TAB Metoprolol Tartrate (Metoprolol Tartrate) 25 Mg Tab 25 MG PO Q12HR for z for 90 Days, TAB 10 Refills Oxycodone-Acetaminophen (Percocet) 5-325 mg Tab 1-2 TAB PO Q4-6H PRN for PAIN, TAB 0 Refills Potassium Chloride Microencaps (Potassium Chloride Microencaps) 20 Meq Tab 20 MEQ PO DAILY for CAD, #31 TAB David Tracy MD Jul 25, 2017 15:08
== END 2017-07-20 18:39 | disposition home health service (06) | DRG 308 ==
LOC: HCIS 17:29 → HCVI 07-12 19:30
PROVIDERS: ADMIT Internal Medicine; ATTEND Internal Medicine
DX: I48.91 Unspecified atrial fibrillation (principal); I50.23 Acute on chronic systolic (congestive) heart failure; I47.2 Ventricular tachycardia; N17.9 Acute kidney failure, unspecified; I25.110 Atherosclerotic heart disease of native coronary artery with unstable angina pectoris; I13.0 Hypertensive heart and chronic kidney disease with heart failure and stage 1 through stage 4 chronic kidney disease, or unspecified chronic kidney disease; E87.3 Alkalosis; R04.2 Hemoptysis; D68.32 Hemorrhagic disorder due to extrinsic circulating anticoagulants; I48.92 Unspecified atrial flutter; N18.9 Chronic kidney disease, unspecified; I25.5 Ischemic cardiomyopathy; E78.5 Hyperlipidemia, unspecified; I25.2 Old myocardial infarction; I51.3 Intracardiac thrombosis, not elsewhere classified; Z86.74 Personal history of sudden cardiac arrest; Z95.1 Presence of aortocoronary bypass graft; R91.8 Other nonspecific abnormal finding of lung field; Z87.891 Personal history of nicotine dependence; T45.515A Adverse effect of anticoagulants, initial encounter; Y92.239 Unspecified place in hospital as the place of occurrence of the external cause; Z53.29 Procedure and treatment not carried out because of patient's decision for other reasons
CPT/HCPCS: 33249; 71010; 71250; 76775; 76937; 80048; 80053; 80076; 80162; 82164; 83735; 83880; 84100; 85025; 85027; 85610; 87640; 87641; 93005; 93306; 93613; 93653; 94640; C1722; C1730; C1777; C2630; J0282; J0690; J0692; J1120; J1644; J1650; J1940; J2250; J2260; J2370; J3010; J3370; J3475; J3480; J7040; J7050; J7060; P9047